=== PATIENT | male | born 1955 | race African-American/Black ===

== ENCOUNTER 2020-04-28 10:14 | Inpatient (IN) ==
[2020-04-28 12:11] LABS: Basophils # (auto) 0.02 K/uL (0-0.2); Basophils % (auto) 0.3 %; Eosinophils # (auto) 0.11 K/uL (0-0.5); Eosinophils % (auto) 1.5 %; Hemoglobin 13.1 g/dL (14.0-18.0); Immature Granulocytes # (auto) 0.01 K/uL (0.00-0.02); Immature Granulocytes % (auto) 0.1 %; Lymphocytes # (auto) 2.17 K/uL (1.2-3.4); Lymphocytes % (auto) 29.8 %; Mean Corpuscular Hemoglobin 32.4 pg (25-34); Mean Corpuscular Hgb Conc 35.4 g/dL (32-36); Mean Corpuscular Volume 91.6 fL (80-100); Mean Platelet Volume 11.2 fL (7.4-10.4); Monocytes # (auto) 0.72 K/uL (0.11-0.59); Monocytes % (auto) 9.9 %; Neutrophils # (auto) 4.24 K/uL (1.4-6.5); Neutrophils % (auto) 58.4 %; Platelet Count 166 K/uL (130-400); RDW Coefficient of Variation 13.1 % (11.5-14.5); RDW Standard Deviation 43.6 fL (36.4-46.3); Red Blood Count 4.04 M/uL (4.7-6.1); White Blood Count 7.27 K/uL (4.8-10.8)
[2020-04-28 12:22] LABS: INR 1.2 (0.9-1.1); Partial Thromboplastin Ratio 1.1; Partial Thromboplastin Time 29.6 Seconds (21.0-31.0); Prothrombin Time 12.4 Seconds (9.0-12.0)
--- NOTE | 2020-04-28 12:40 | CT Scan Report ---
CT head/brain wo con CLINICAL HISTORY: 65 years-old Male with ams. Acutely altered mental status TECHNIQUE: Multiple axial CT images of the head were obtained without contrast. A dose lowering tech nique was utilized adhering to the principles of ALARA. COMPARISON: None. FINDINGS: No acute intracranial hemorrhage, midline shift, intracranial mass, hydrocephalus, territorial ischem ia or abnormal extra-axial collection. Age-related involutional changes with mild ex vacuo ventriculo megaly. Patchy white matter hypodensities suggest chronic microvascular ischemic disease. The calvarium is intact. The paranasal sinuses, mastoid air cells, and middle ear cavities are clear . IMPRESSION: No acute intracranial abnormality. ACT 112: Negative or not required by law. The above report was generated using voice recognition software. It may contain grammatical, syntax o r spelling errors. Electronically signed by: Martin Tirado M.D. 04/28/2020 12:39 PM
--- NOTE | 2020-04-28 12:41 | XRay Report ---
XR chest 1V portable HISTORY: 65 years-old Male ams . Acutely altered mental status COMPARISON: CT abdomen and pelvis of same day TECHNIQUE: Portable AP view of the chest FINDINGS: Cardiac silhouette is mildly enlarged. There is no pneumothorax, pleural effusion, airspace consolida tion or overt pulmonary edema. Degenerative changes of the shoulders and spine. IMPRESSION: No acute process. ACT 112: Negative or not required by law. The above report was generated using voice recognition software. It may contain grammatical, syntax o r spelling errors. Electronically signed by: Martin Tirado M.D. 04/28/2020 12:40 PM
[2020-04-28 12:47] LABS: Alanine Aminotransferase 19 U/L (12-78); Albumin Globulin Ratio 0.4 (0.9-2); Albumin Level 2.3 gm/dl (3.4-5.0); Alkaline Phosphatase 105 U/L (45-117); Aspartate Aminotransferase 27 U/L (15-37); BUN Creatinine Ratio 12.3 (10-20); Bilirubin,Total 0.9 mg/dl (0.2-1); Blood Urea Nitrogen 58 mg/dl (7-18); Carbon Dioxide 25 mmol/L (21-32); Chloride 109 mmol/L (98-107); Est GFR (African American) 13.9; Globulin 5.9 gm/dl (2.5-4.0); Glucose 117 mg/dl (70-99); Magnesium 1.8 mg/dl (1.8-2.4); Potassium 4.3 mmol/L (3.5-5.1); Sodium 143 mmol/L (136-145); Total Protein 8.2 gm/dl (6.4-8.2); Troponin I < 0.015 ng/ml (0-0.045)
--- NOTE | 2020-04-28 12:49 | CT Scan Report ---
ABDOMEN AND PELVIS CT WITHOUT CONTRAST CT DOSE: 1682.81 mGy.cm HISTORY: Acute right-sided flank pain rt flank pain TECHNIQUE: Multiaxial CT images of the abdomen and pelvis were performed without contrast. A dose lo wering technique was utilized adhering to the principles of ALARA. COMPARISON STUDY: Chest radiograph of same day FINDINGS: Clear lung bases. No pneumatosis or pneumoperitoneum. Cardiomegaly. Mural fibrofatty changes of the i ntraventricular septum and lateral right ventricular wall. Coronary artery calcifications. Unremarkab le spleen. Limited evaluation of the solid abdominal organs without the use of IV contrast. Unremarka ble pancreas and adrenal glands. Cholelithiasis without CT evidence of acute cholecystitis. Cirrhotic morphology of the liver. Upper abdominal varices compatible with portal venous hypertension. Mild nonspecific bilateral perinephric stranding. No urolith or obstructive uropathy. Mild urinary bl adder wall thickening with partial distention. Calcified plaque the abdominal aorta. No aneurysm. Mil d nonspecific distal esophageal wall thickening. Varices are also noted adjacent to the distal esopha shivam and gastroesophageal junction. No bowel obstruction or bowel wall thickening. Colonic diverticulo sis. Mild fecal retention. Surgically absent appendix. There are multiple fat filled ventral abdomina l wall hernias, largest of which measures up to 2.5 cm. Diastases recti. Moderate to marked bilateral gynecomastia. Indeterminate 6 mm sclerotic focus of the anterior right sixth rib. No acute fracture. IMPRESSION: 1. No renal or ureteral calculi or obstructive uropathy. 2. Cirrhotic morphology of the liver with upper abdominal varices compatible with portal venous hyper tension. 3. No bowel obstruction or bowel wall thickening. 4. Multiple fat filled ventral abdominal wall hernias. 5. Moderate to marked bilateral gynecomastia. 6. Additional findings as above. ACT 112: Negative or not required by law. The above report was generated using voice recognition software. It may contain grammatical, syntax o r spelling errors. Electronically signed by: Martin Tirado M.D. 04/28/2020 12:48 PM
[2020-04-28] MEDS ORDERED: LACTULOSE SYRUP 30 GM/45 ML UDP PO STA ×2 (14:39→18:13)
[2020-04-28] MEDS ORDERED: SODIUM CHLORIDE 0.9% 1000ML 1,000 ML IV ONE (14:40)
--- NOTE | 2020-04-28 14:41 | Emergency Department Note ---
History of Present Illness General Chief complaint: Confusion Stated complaint: AMS,RENAL FAILURE,FATIGUE,CONFUSION Time Seen by Provider: 04/28/20 11:28 Source: patient Mode of arrival: EMS Limitations: no limitations History of Present Illness Provider complaint: Abnormal kidney function This is a 65-year-old male who presents to the ED with a chief complaint of abnormal labs and abnormal kidney function. The patient was sent here by the [facility] at the [facility]. The patient has had decreased p.o. intake for the past few days. He had an outpatient BUN of 57 and a creatinine of 4.74. His hemoglobin is 8.9. He does have history of chronic anemia. He also has history of type 2 diabetes and cirrhosis as well as renal disease. He states that he has had some nausea and vomiting for the past couple of days as well. He reports some occasional abdominal pain and back pain. 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 The present sentiment because they felt that he was altered. Home Medications Home Medications Medication Instructions Recorded Confirmed Type acetaminophen 500 mg PO QID PRN 04/28/20 04/28/20 History aspirin [Aspirin Low Dose] 81 mg PO DAILY 04/28/20 04/28/20 History bumetanide 2 mg PO DAILY 04/28/20 04/28/20 History epoetin amy-epbx 10,000 unit SUBCUT WK 04/28/20 04/28/20 History insulin NPH isoph U-100 human 38 unit SUBCUT BID 04/28/20 04/28/20 History [Novolin N NPH U-100 Insulin] insulin regular human [Novolin R 0 unit SUBCUT UD 04/28/20 04/28/20 History Flexpen] iron,carbonyl-vitamin C [Vitron-C] 1 tab PO DAILY 04/28/20 04/28/20 History nadolol 20 mg PO BID 04/28/20 04/28/20 History nortriptyline 25 mg PO HS 04/28/20 04/28/20 History omeprazole 20 mg PO DAILY 04/28/20 04/28/20 History spironolactone 50 mg PO DAILY 04/28/20 04/28/20 History Allergies Allergy/AdvReac Type Severity Reaction Status Date / Time No Known Allergies Allergy Unverified 04/28/20 11:07 Past Med/Surg History Social History Smoking Status: Never smoker Feels Safe at Home: Yes Review of Systems A total of 10 systems reviewed and were otherwise negative Physical Exam Vital Signs Vital Signs - 24 hr 04/28/20 10:37 04/28/20 11:05 04/28/20 11:06 Temperature 36.6 C Temperature Source Oral Pulse Rate 81 78 76 Pulse Rate from SpO2 Sensor 79 77 Pulse Rhythm Regular Pulse Strength Normal Respiratory Rate 20 17 15 Respiratory Effort / Characteristics Non-Labored Spontaneous Respiratory Depth Normal Respiratory Pattern Regular Blood Pressure 162/98 H 199/100 H Blood Pressure Mean 119 124 Blood Pressure Position Sitting Pulse Oximetry 99 98 98 Oxygen Delivery Method Room Air Sepsis Recent Fever Within 48 Hours No Sepsis New/Unexplained Change in Mental Status N/A Sepsis Action Taken by Nursing No Action Required 04/28/20 11:30 04/28/20 11:44 04/28/20 12:00 Temperature Temperature Source Pulse Rate 77 79 Pulse Rate from SpO2 Sensor Pulse Rhythm Pulse Strength Respiratory Rate 15 15 Respiratory Effort / Characteristics Respiratory Depth Respiratory Pattern Blood Pressure Blood Pressure Mean Blood Pressure Position Pulse Oximetry Oxygen Delivery Method Room Air Sepsis Recent Fever Within 48 Hours Sepsis New/Unexplained Change in Mental Status Sepsis Action Taken by Nursing 04/28/20 12:05 04/28/20 12:31 04/28/20 13:01 Temperature Temperature Source Pulse Rate 79 78 79 Pulse Rate from SpO2 Sensor 79 Pulse Rhythm Pulse Strength Respiratory Rate 16 17 19 Respiratory Effort / Characteristics Respiratory Depth Respiratory Pattern Blood Pressure 200/109 H 199/130 H Blood Pressure Mean 146 152 Blood Pressure Position Pulse Oximetry 98 Oxygen Delivery Method Sepsis Recent Fever Within 48 Hours Sepsis New/Unexplained Change in Mental Status Sepsis Action Taken by Nursing CONSTITUTIONAL/VITAL SIGNS: Reviewed / noted above. GENERAL: Non-toxic in appearance. INTEGUMENTARY: Warm, dry, and [place]. HEAD: Normocephalic. EYES: without scleral icterus or trauma. ENT/OROPHARYNX: clear and moist. LYMPHADENOPATHY/NECK: Is supple without lymphadenopathy or meningismus. RESPIRATORY: Lungs clear and equal. CARDIOVASCULAR: Regular rate and rhythm. GI/ABDOMEN: Soft and nontender. Umbilical hernia noted. Reducible. No organomegaly or pulsatile mass. No rebound or guarding. Normal bowel sounds. EXTREMITIES: Warm and well perfused. BACK: No CVA tenderness. NEUROLOGICAL: Intact without focal deficits. PSYCHIATRIC: normal affect. MUSCULOSKELETAL: Normally developed with good muscle tone. TRIAGE NURSING DOCUMENTATION REVIEWED. Medical Decision Making Differential Diagnosis Differential includes acute coronary syndrome, myocardial infarction, CVA, TIA, anemia, infection, pneumonia, UTI, pyelonephritis, poor nutrition, dehydration, electrolyte disturbance,hypoglycemia. Medical Records Attestation: I reviewed the patient's medical records. Home Medications Current Medication List: was personally reviewed by me Laboratory Data Attestation: I reviewed the patient's lab results. Result diagrams: 04/28/20 11:22 04/28/20 11:22 Lab Results 04/28/20 04/28/20 04/28/20 Range/Units 11:22 11:22 11:22 WBC 7.27 (4.8-10.8) K/uL RBC 4.04 L (4.7-6.1) M/uL Hgb 13.1 L (14.0-18.0) g/dL Hct 37.0 L (42-52) % MCV 91.6 (80-100) fL MCH 32.4 (25-34) pg MCHC 35.4 (32-36) g/dL RDW Std Deviation 43.6 (36.4-46.3) fL RDW Coeff of Kianna 13.1 (11.5-14.5) % Plt Count 166 (130-400) K/uL MPV 11.2 H (7.4-10.4) fL Immature Gran % (Auto) 0.1 % Neut % (Auto) 58.4 % Lymph % (Auto) 29.8 % Cooper % (Auto) 9.9 % Eos % (Auto) 1.5 % Baso % (Auto) 0.3 % Neut # (Auto) 4.24 (1.4-6.5) K/uL Lymph # (Auto) 2.17 (1.2-3.4) K/uL Cooper # (Auto) 0.72 H (0.11-0.59) K/uL Eos # (Auto) 0.11 (0-0.5) K/uL Baso # (Auto) 0.02 (0-0.2) K/uL Immature Gran # (Auto) 0.01 (0.00-0.02) K/uL PT 12.4 H (9.0-12.0) Seconds INR 1.2 H (0.9-1.1) APTT 29.6 (21.0-31.0) Seconds PTT Ratio 1.1 Sodium 143 (136-145) mmol/L Potassium 4.3 (3.5-5.1) mmol/L Chloride 109 H (98-107) mmol/L Carbon Dioxide 25 (21-32) mmol/L Anion Gap 9.0 (3-11) BUN 58 H (7-18) mg/dl Creatinine 4.71 H* (0.6-1.4) mg/dl Est Cr Clr Drug Dosing Not Reportable Est GFR ( Amer) 13.9 Est GFR (Non-Af Amer) 12.0 BUN/Creatinine Ratio 12.3 (10-20) Glucose 117 H (70-99) mg/dl Calcium 9.0 (8.5-10.1) mg/dl Magnesium 1.8 (1.8-2.4) mg/dl Total Bilirubin 0.9 (0.2-1) mg/dl AST 27 (15-37) U/L ALT 19 (12-78) U/L Alkaline Phosphatase 105 (45-117) U/L Ammonia (11-32) umol/L Troponin I < 0.015 (0-0.045) ng/ml Total Protein 8.2 (6.4-8.2) gm/dl Albumin 2.3 L (3.4-5.0) gm/dl Globulin 5.9 H (2.5-4.0) gm/dl Albumin/Globulin Ratio 0.4 L (0.9-2) TSH 1.240 (0.300-4.500) uIu/ml Ethyl Alcohol mg/dL (0-3) mg/dl 04/28/20 04/28/20 Range/Units 12:03 12:03 WBC (4.8-10.8) K/uL RBC (4.7-6.1) M/uL Hgb (14.0-18.0) g/dL Hct (42-52) % MCV (80-100) fL MCH (25-34) pg MCHC (32-36) g/dL RDW Std Deviation (36.4-46.3) fL RDW Coeff of Kianna (11.5-14.5) % Plt Count (130-400) K/uL MPV (7.4-10.4) fL Immature Gran % (Auto) % Neut % (Auto) % Lymph % (Auto) % Cooper % (Auto) % Eos % (Auto) % Baso % (Auto) % Neut # (Auto) (1.4-6.5) K/uL Lymph # (Auto) (1.2-3.4) K/uL Cooper # (Auto) (0.11-0.59) K/uL Eos # (Auto) (0-0.5) K/uL Baso # (Auto) (0-0.2) K/uL Immature Gran # (Auto) (0.00-0.02) K/uL PT (9.0-12.0) Seconds INR (0.9-1.1) APTT (21.0-31.0) Seconds PTT Ratio Sodium (136-145) mmol/L Potassium (3.5-5.1) mmol/L Chloride (98-107) mmol/L Carbon Dioxide (21-32) mmol/L Anion Gap (3-11) BUN (7-18) mg/dl Creatinine (0.6-1.4) mg/dl Est Cr Clr Drug Dosing Est GFR ( Amer) Est GFR (Non-Af Amer) BUN/Creatinine Ratio (10-20) Glucose (70-99) mg/dl Calcium (8.5-10.1) mg/dl Magnesium (1.8-2.4) mg/dl Total Bilirubin (0.2-1) mg/dl AST (15-37) U/L ALT (12-78) U/L Alkaline Phosphatase (45-117) U/L Ammonia 62.0 H (11-32) umol/L Troponin I (0-0.045) ng/ml Total Protein (6.4-8.2) gm/dl Albumin (3.4-5.0) gm/dl Globulin (2.5-4.0) gm/dl Albumin/Globulin Ratio (0.9-2) TSH (0.300-4.500) uIu/ml Ethyl Alcohol mg/dL < 3.0 (0-3) mg/dl Imaging Data Radiologist's Impression: CT scan of the abdomen pelvis: IMPRESSION: 1. No renal or ureteral calculi or obstructive uropathy. 2. Cirrhotic morphology of the liver with upper abdominal varices compatible with portal venous hypertension. 3. No bowel obstruction or bowel wall thickening. 4. Multiple fat filled ventral abdominal wall hernias. 5. Moderate to marked bilateral gynecomastia. 6. Additional findings as above. Chest x-ray:XR chest 1V portable HISTORY: 65 years-old Male ams . Acutely altered mental status COMPARISON: CT abdomen and pelvis of same day TECHNIQUE: Portable AP view of the chest FINDINGS: Cardiac silhouette is mildly enlarged. There is no pneumothorax, pleural effus ion, airspace consolidation or overt pulmonary edema. Degenerative changes of the shoulders and spine. IMPRESSION: No acute process. CT scan of the brain:CT head/brain wo con CLINICAL HISTORY: 65 years-old Male with ams. Acutely altered mental status TECHNIQUE: Multiple axial CT images of the head were obtained without contrast. A dose lowering technique was utilized adhering to the principles of ALARA. COMPARISON: None. FINDINGS: No acute intracranial hemorrhage, midline shift, intracranial mass, hydrocephalus, territorial ischemia or abnormal extra-axial collection. Age- related involutional changes with mild ex vacuo ventriculomegaly. Patchy white matter hypodensities suggest chronic microvascular ischemic disease. The calvarium is intact. The paranasal sinuses, mastoid air cells, and middle ear cavities are clear. IMPRESSION: No acute intracranial abnormality. ECG Data Attestation: I personally reviewed and interpreted this ECG as follows: Indication: + altered mental status Rate (beats per minute): 77 Rhythm: + normal sinus ECG Intervals/blocks: + Normal QT-c ECG ST segments: no ST elevation ECG Findings: no PVCs Comparison ECG Date: no prior available Blood Pressure Blood Pressure Findings: Normal blood pressure MDM Narrative The patient presents with a chief complaint of some change in mental status as well as abnormal labs, specifically his kidney function. The baseline creatinine is unclear for this patient. He does have a history of chronic renal insufficiency. His creatinine today is 4.7. His BUN is 58. His ammonia level is 62. His CBC and chemistry panel was otherwise unremarkable and his troponin was negative. EKG did not show ischemic changes. A CT scan of the head and a chest x-ray did not show acute abnormality and a CT scan of the chest revealed some cirrhosis which is known based on his history. Because the patient's abnormal kidney function is alteration of mental status, the patient will r equire further inpatient evaluation and care. He was treated with a normal saline bolus of 1 L IV. He was also given lactulose 30 g p.o. He will be seen by the hospitalist for further evaluation and care. Impression & Plan Altered mental status, Acute on chronic kidney failure, Acute hepatic encephalopathy Discharge Plan Visit Data Chief Complaint: Confusion Stated Complaint: AMS,RENAL FAILURE,FATIGUE,CONFUSION ED Provider: Gerber Cook Discharge Problem: Altered mental status, Acute on chronic kidney failure, Acute hepatic encephalopathy Patient Disposition: Being Evaluated by Hospitalist Forms Stand Alone Forms: [facility], Virtual Emergency Department, Important Visit Information Prescriptions Prescriptions: No Action bumetanide 2 mg Tablet 2 mg PO DAILY RF: 0 aspirin [Aspirin Low Dose] 81 mg Tablet,Delayed Release (Dr/Ec) 81 mg PO DAILY RF: 0 spironolactone 25 mg Tablet 50 mg PO DAILY RF: 0 nortriptyline 25 mg Capsule 25 mg PO HS RF: 0 nadolol 20 mg Tablet 20 mg PO BID RF: 0 Novolin N NPH U-100 Insulin 100 unit/mL Suspension 38 unit SUBCUT BID RF: 0 omeprazole 20 mg Capsule,Delayed Release(Dr/Ec) 20 mg PO DAILY RF: 0 acetaminophen 500 mg Capsule 500 mg PO QID PRN (Reason: Pain) RF: 0 Novolin R Flexpen 100 unit/mL (3 mL) Insulin Pen 0 unit SUBCUT UD RF: 0 Vitron-C 65 mg iron- 125 mg Tablet,Delayed Release (Dr/Ec) 1 tab PO DAILY RF: 0 epoetin amy-epbx 10,000 unit/mL Solution 10,000 unit subcut WK RF: 0 Referrals Referrals: Irais POE [Primary Care Provider] -
[2020-04-28 15:42] LABS: Appearance Urine Clear (Clear); Bacteria Urine Automated Negative (Negative); Bilirubin Urine Negative (Negative); Blood Urine 2+ (Negative); Color Urine Dark Yellow; Epithelial Cell Urine Auto 20-30 /lpf (0-5); Glucose Urine UA 1+ (Negative); Ketones Urine Negative (Negative); Leukocyte Esterase Urine Negative (Negative); Nitrite Urine Negative (Negative); Protein Urine 3+ (Negative); Specific Gravity Urine 1.024 (1.000-1.030); Urobilinogen Urine Negative (Negative); pH Urine 5.5 (4.5-7.5)
[2020-04-28 15:58] LABS: Amphetamines+Metham, Urine Neg (Neg); Barbiturates, Urine Neg (Neg); Benzodiazepine, Urine Neg (Neg); Cocaine, Urine Neg (Neg); MDMA (Ecstacy), Urine Neg (Neg); Methadone, Urine Neg (Neg); Opiate, Urine Neg (Neg); Phencyclidine, Urine Neg (Neg)
--- NOTE | 2020-04-28 16:27 | History & Physical Report ---
Date of Service April 28, 2020 Assessment & Plan (1) Acute hepatic encephalopathy: Ammonia 64. Mild fecal retention on CT Lactulose 30ml QID Aim 3-4 BM daily (2) Altered mental status: Most likely secondary to above Alternative diagnoses - fluctuating glucose levels, uremic encephalopathy, infection (follow up blood cultures) (3) Acute on chronic kidney failure: Slow progressively worsening Cr over the last month. No obstructive cause on CT. Unclear what caused his initial rise from February Cr 2.92 to March Cr 3.45 ?hypertension/diabetes/hepatorenal. No significant change in the last 3 days. No electrolyte abnormalities. Add urine protein/Cr ratio, FENa to urine. Patient dry on exam, suspect prerenal REDD due to overdiuresis from Bumex 2mg started on for hypervolemia. Hold further diuretics at present pending renal consult tomorrow. (4) Anemia, unspecified: Suspect anemia of chronic disease, anemia of CKD. Continue iron supplementation (Vitron-C). Retacrit 10,000 units given on -does not appear to need this at present. (5) Hypertensive urgency: No significant change in creatinine for 3 days therefore do not suspect hypertensive emergency. Continue nadolol 20 mg p.o. twice daily. Hold diuretics as above. Hydralazine 10 mg IV q4H PRN for sBP > 180. (6) Liver cirrhosis: Secondary to previously treated hepatitis C. Esophageal varices without bleeding as below. (7) Esophageal varices without bleeding: Continue nadolol 20 mg p.o. twice daily (8) Type 2 diabetes mellitus: HbA1c unknown, will get with AM labs. Patient on insulin NPH 38 units subcu twice daily and Novolin R as correction factor. No carb coverage noted on medication sheet. Consult pharmacy for glycemic control with basal bolus insulin. (9) Microscopic hematuria: Consider repeating as outpatient (10) Umbilical hernia without obstruction or gangrene: Reducible, nonpainful, no overlying concerning skin changes. (11) GERD (gastroesophageal reflux disease): Switch omeprazole to pantoprazole as per hospital formulary (12) Low back pain: Acetaminophen with max dose 1600 mg. No NSAIDs. (13) Hyperlipidemia: Problem listed however no statin on medication list. (14) DVT prophylaxis: SCDs Will defer chemical prophylaxis pending BP stability give esophageal varices Admission and Anticipated Discharge Date Admission Date: 04/28/2020 History of Present Illness Chief Complaint: Altered mental state Primary Care Provider: DEEPIKA Irais Moreira is a 65-year-old male inmate of [facility], with known liver cirrhosis and chronic kidney disease who presents to the ER with altered mental state. [facility] over from [facility] that the patient has had altered mental status with increasing lethargy, fatigue and confusion over the last 24 hours. The patient confirms he is feeling generally more fatigued and lethargic than usual with slurring of his speech but feels this is been getting progressively worse for weeks. Denies lateralizing weakness, change in hearing, change in vision, change in sensation. No chest pain, shortness of breath, fever, chills, abdominal pain, nausea, vomiting, dysuria. Last bowel movement per patient was 2 days ago. No lactulose noted on medication list. He recently transferred to [facility] in the last month. Confirmation from present that he took his 7 AM medications. BSG @ 7:20 with 38 units of Novolin N given. BP this morning 168/100. Discussed case with KENISHA Beatty @ [facility] -reports he has been more sluggish and slow to respond over the last few days. Significantly worse this morning with lethargy and tiredness. Previously on Lasix 40 mg p.o. daily until April 12. He was then trialed to take his own Lasix 80mg PO daily from April 12- but reportedly was non-compliant with this and caused hypervolemia. He was therefore switched to Bumex 2mg starting on . Also notes his glucose levels fluctuate considerably from double digits to 300s. Date 03/13 04/13 04/25 BUN 40 34 57 Cr 2.92 3.45 4.74 Date 04/09 04/19 04/25 10am 04/25 6pm 04/26 04/28 BP 150/86 180/100 140/82 190/91 170/88 168/100 Allergies Allergy/AdvReac Type Severity Reaction Status Date / Time No Known Allergies Allergy Unverified 04/28/20 11:07 Home Medications Home Medications Medication Instructions Recorded Confirmed Type acetaminophen 500 mg PO QID PRN 04/28/20 04/28/20 History aspirin [Aspirin Low Dose] 81 mg PO DAILY 04/28/20 04/28/20 History bumetanide 2 mg PO DAILY 04/28/20 04/28/20 History epoetin amy-epbx 10,000 unit SUBCUT WK 04/28/20 04/28/20 History insulin NPH isoph U-100 human 38 unit SUBCUT BID 04/28/20 04/28/20 History [Novolin N NPH U-100 Insulin] insulin regular human [Novolin R 0 unit SUBCUT UD 04/28/20 04/28/20 History Flexpen] iron,carbonyl-vitamin C [Vitron-C] 1 tab PO DAILY 04/28/20 04/28/20 History nadolol 20 mg PO BID 04/28/20 04/28/20 History nortriptyline 25 mg PO HS 04/28/20 04/28/20 History omeprazole 20 mg PO DAILY 04/28/20 04/28/20 History spironolactone 50 mg PO DAILY 04/28/20 04/28/20 History Past Med/Surg History Medical History Allergic rhinitis Anemia, unspecified Chronic kidney disease, unspecified Esophageal varices without bleeding Flatulence GERD (gastroesophageal reflux disease) HCV (hepatitis C virus) Treated Hyperlipidemia Hypertension Liver cirrhosis Low back pain Onychomycosis Pruritus, unspecified Type 2 diabetes mellitus Umbilical hernia without obstruction or gangrene Social History Smoking Status: Former smoker Hx Alcohol Use: No Hx Substance Use: No Communication Ability: Effective Proof Technician Required: No Beliefs That Will Affect Care: None Current Living Situation: Other Other Information That Helps Us Care for You: No Feels Safe at Home: Yes Safety Concerns: Feels Safe At This Time Review of Systems Review of Systems: All systems reviewed & are unremarkable except as noted in HPI & below Constitutional: + fatigue and + weakness; no fever and no chills Gastrointestinal: + nausea and + constipation; no vomiting, no blood in stools and no melena Physical Exam Constitutional: well developed; + not well nourished and no acute distress Eyes: PERRL, conjunctivae normal, anicteric sclerae no nystagmus ENMT: external ear and nose normal, oropharynx normal Neck: trachea midline, no thyromegaly Respiratory: normal respiratory effort, lungs clear to auscultation Cardiovascular: Rate/Rhythm: regular rate and regular rhythm Heart Sounds: no murmur Extremities: + pedal edema Gastrointestinal (Abdomen): Inspection/Auscultation: + abdomen distended and + hyperactive bowel sounds Percussion/Palpation: + abdomen tender (Very mild of the left side, no rebound) and abdomen soft; no guarding and abdomen not rigid Musculoskeletal: no cyanosis or clubbing, extremities motor strength 5/5 Skin: no rashes, warm and dry (No areas of cellulitis) Neurologic: moves all extremities and awake; not confused Psychiatric: Orientation: alert, oriented to person, oriented to place and oriented to time Genitourinary: no CVA tenderness Lymphatic: no cervical or axillary lymphadenopathy Results & Data Results & Data ([facility]) Vital Signs (Past 12 Hours) Vital Signs Temp Pulse Resp BP Pulse Ox 04/28/20 13:01 79 19 04/28/20 12:31 78 17 199/130 H 04/28/20 12:05 79 16 200/109 H 98 04/28/20 12:00 79 15 04/28/20 11:30 77 15 04/28/20 11:06 76 15 98 04/28/20 11:05 78 17 199/100 H 98 04/28/20 10:37 36.6 C 81 20 162/98 H 99 Diagnostic Findings XR chest 1V portable IMPRESSION: No acute process. CT head/brain wo con IMPRESSION: No acute intracranial abnormality. ABDOMEN AND PELVIS CT WITHOUT CONTRAST IMPRESSION: 1. No renal or ureteral calculi or obstructive uropathy. 2. Cirrhotic morphology of the liver with upper abdominal varices compatible with portal venous hypertension. 3. No bowel obstruction or bowel wall thickening. 4. Multiple fat filled ventral abdominal wall hernias. 5. Moderate to marked bilateral gynecomastia. 6. Additional findings as above. ECG Indication: altered mental status Rate (beats per minute): 77 Rhythm: sinus with SA Findings: + T-wave inversion (Inferior, lateral) Comparison ECG Date: no prior available Code Status & VTE Plan Code Status Full VTE Prophylaxis Plan VTE Prophylaxis will be ordered: Yes PG Care Time/CCT Total # of Minutes Spent Total Time Spent: 95 Total Time Spent with Patient: Total time spent is greater than 50% in coordination of care (as documented) at patient's floor/unit and/or counseling patient: Coding Level of Care Code 24572 OBS Care - Level 3 Diagnoses Acute hepatic encephalopathy K72.00 Altered mental status R40.0 Altered mental status type: somnolence Acute on chronic kidney failure N17.9; N18.9 Acute renal failure type: unspecified Chronic kidney disease stage: unspecified stage Anemia, unspecified D64.9 Hypertensive urgency I16.0 Liver cirrhosis K74.60 Hepatic cirrhosis type: unspecified hepatic cirrhosis Ascites presence: without ascites Esophageal varices without bleeding I85.00 Type 2 diabetes mellitus E11.9 Microscopic hematuria R31.29 Umbilical hernia without obstruction or gangrene K42.9 GERD (gastroesophageal reflux disease) K21.9 Low back pain M54.5 Hyperlipidemia E78.5 DVT prophylaxis Z29.9 (1) Liver cirrhosis Hepatic cirrhosis type: unspecified hepatic cirrhosis Ascites presence: without ascites Qualified Code(s): K74.60 - Unspecified cirrhosis of liver (2) Altered mental status Altered mental status type: somnolence Qualified Code(s): R40.0 - Somnolence (3) Acute on chronic kidney failure Acute renal failure type: unspecified Chronic kidney disease stage: unspecified stage Qualified Code(s): N17.9 - Acute kidney failure, unspecified; N18.9 - Chronic kidney disease, unspecified
[2020-04-28] MEDS ORDERED: ACETAMINOPHEN 325 MG TAB PO PRN (18:08)
[2020-04-28] MEDS ORDERED: ALUMINUM/MAGNESIUM SUSP 30 ML UDC PO PRN (18:08)
[2020-04-28] MEDS ORDERED: ONDANSETRON INJ 2 MG/ML 2 ML VIAL IV PRN (18:08)
[2020-04-28] MEDS ORDERED: HydrALAZINE HCL 20 MG/ML VIAL IV STA (18:09)
[2020-04-28] MEDS ORDERED: PHARMACY GLYCEMIC MGMT CONSULT PRN (18:18)
[2020-04-28] MEDS ORDERED: GLUCAGON FOR INJ 1 MG VIAL IM PRN (18:45)
[2020-04-28] MEDS ORDERED: GLUCOSE 10 TABS/TUBE PO PRN (18:45)
[2020-04-28] MEDS ORDERED: DEXTROSE 50% 50 ML SYRINGE IV PRN (18:45)
[2020-04-28] MEDS ORDERED: CARBOHYDRATES FOR HYPOGLYCEMIA PO PRN (18:45)
[2020-04-28] MEDS ORDERED: GLUCOSE 40% GEL 15 GM TUBE PO PRN (18:45)
[2020-04-28] MEDS ORDERED: NovoLIN-N (NPH) PER UNIT CHARGE SQ ONE (19:00)
[2020-04-28] MEDS: INSULIN ASPART 100 UNITS/ML 3 ML PEN SC SCH ×2 (19:12→20:17)
--- NOTE | 2020-04-28 19:12 | Pharmacy Report ---
Glycemic Control Consultation - Date of Service April 28, 2020 - Scope Scope: Glycemic Pharmacist consulted for glycemic control and to write orders per [facility] inpatient glycemic control protocol. - Objective Weight: 93.6 kg Accuchecks BSG (last 24hrs): 04/28/20 04/28/20 11:22 18:41 Glucose 117 H POC Glucose 143 H Laboratory Data (last 24hrs): 04/28/20 11:22 Potassium 4.3 Carbon Dioxide 25 Anion Gap 9.0 Creatinine 4.71 H* Est Cr Clr Drug Dosing Not Reportable - Recent Pertinent Medications Outpatient Anti-diabetic Regimen: * Insulin NPH 38 units SQ BIDM + Regular Insulin sliding scale * A1c = pending for tomorrow morning Risk Factors for Insulin Resistance: * Diet: * T2DM - Assessment & Plan Assessment & Plan: ASSESSMENT: * 65 yo M admitted from [facility] for altered mental status and acute kidney injury. Pharmacy is consulted for inpatient glycemic management. A hemoglobin A1c has been ordered for tomorrow morning. * Admission BSG was 117 mg/dL. Increased slightly to 143 mg/dL prior to patient eating dinner at ~ 1830. Last known dose of insulin was last evening. * Given patient will be eating dinner and did not receive any NPH this morning, will give him a one time dose of 20 units NPH with dinner tonight. This is almost a 50% reduction in home dose. Will start Novolog correctional/prandial insulin based on weight and stress of 2. PLAN FOR INPATIENT GLYCEMIC CONTROL: * Basal insulin * NPH 20 units SQ x 1 * Bolus insulin * NovoLog per scale ACHS or Q6hrs while NPO * Goal Range: Low 110 mg/dL - High 140 mg/dL * Correction Factor: 25 mg/dL/unit * Nutritional / Prandial insulin per carb ratio of 1 unit per 8 grams CHO consumed * Please note that the plan above was derived based on current level of insulin resistance and hospital stress. These recommendations are appropriate for inpatient admission only. Plan of care upon discharge will need to be reassessed to avoid potential outpatient hypo/hyperglycemia. Thank you.
[2020-04-28] MEDS: LACTULOSE SYRUP 30 GM/45 ML UDP PO SCH (20:14)
[2020-04-28] MEDS: HydrALAZINE HCL 20 MG/ML VIAL IV PRN (20:15)
[2020-04-28] MEDS: NORTRIPTYLINE HCL 25 MG CAP PO SCH (20:15)
[2020-04-28] MEDS ORDERED: nadoloL 40 MG TAB PO SCH (21:00)
[2020-04-28] MEDS ORDERED: nadoloL 40 MG TAB PO STA (22:04)
[2020-04-28 22:34] LABS: Protein Creatinine Ratio Urine 3.4 (0-0.2); Total Protein Urine Random 817.6 mg/dl (0-11.9)
[2020-04-28] MEDS: NITROGLYCERIN 2% OINTMENT 30GM TUBE EXT SCH (22:35)
[2020-04-29] MEDS: HydrALAZINE HCL 20 MG/ML VIAL IV PRN (04:15)
[2020-04-29] MEDS: NITROGLYCERIN 2% OINTMENT 30GM TUBE EXT SCH ×4 (04:16→22:55)
--- NOTE | 2020-04-29 06:48 | Electrocardiogram Report ---
Test Reason : Blood Pressure : / mmHG Vent. Rate : 077 BPM Atrial Rate : 077 BPM P-R Int : 130 ms QRS Dur : 084 ms QT Int : 382 ms P-R-T Axes : 039 -01 254 degrees QTc Int : 432 ms Normal sinus rhythm with sinus arrhythmia Possible Left atrial enlargement Left ventricular hypertrophy Abnormal ECG No previous ECGs available Confirmed by Bassam Correa ([id number]) on 04/29/2020 6:48:35 AM Referred By: Irais POE Confirmed By:Bassam Correa
[2020-04-29] MEDS ORDERED: INSULIN HUMAN NPH SC SCH (08:00)
[2020-04-29] MEDS: INSULIN ASPART 100 UNITS/ML 3 ML PEN SC SCH ×4 (08:13→20:56)
[2020-04-29] MEDS: ASPIRIN 81 MG ECTAB PO SCH (08:17)
[2020-04-29] MEDS: LACTULOSE SYRUP 30 GM/45 ML UDP PO SCH ×4 (08:17→20:45)
[2020-04-29] MEDS: PANTOprazole 40 MG TAB PO SCH (08:17)
[2020-04-29] MEDS: FERROUS FUMARATE/ASCORBIC ACID 65 MG CAPCR PO SCH (08:17)
[2020-04-29] MEDS: nadoloL 40 MG TAB PO SCH ×2 (08:17→22:54)
[2020-04-29 08:37] LABS: Basophils # (auto) 0.02 K/uL (0-0.2); Basophils % (auto) 0.3 %; Eosinophils # (auto) 0.12 K/uL (0-0.5); Eosinophils % (auto) 1.9 %; Hemoglobin 12.3 g/dL (14.0-18.0); Immature Granulocytes # (auto) 0.01 K/uL (0.00-0.02); Immature Granulocytes % (auto) 0.2 %; Lymphocytes # (auto) 1.86 K/uL (1.2-3.4); Lymphocytes % (auto) 29.2 %; Mean Corpuscular Hemoglobin 32.5 pg (25-34); Mean Corpuscular Hgb Conc 35.1 g/dL (32-36); Mean Corpuscular Volume 92.6 fL (80-100); Mean Platelet Volume 10.9 fL (7.4-10.4); Monocytes # (auto) 1.05 K/uL (0.11-0.59); Monocytes % (auto) 16.5 %; Neutrophils # (auto) 3.32 K/uL (1.4-6.5); Neutrophils % (auto) 51.9 %; Platelet Count 153 K/uL (130-400); RDW Coefficient of Variation 13.5 % (11.5-14.5); RDW Standard Deviation 45.4 fL (36.4-46.3); Red Blood Count 3.78 M/uL (4.7-6.1); White Blood Count 6.38 K/uL (4.8-10.8)
--- NOTE | 2020-04-29 08:43 | Ultrasound Report ---
DOPPLER ULTRASOUND OF THE RENAL ARTERIES CLINICAL HISTORY: Hypertension. COMPARISON STUDY: No priors. TECHNIQUE: Doppler sonography of the renal arteries was performed to assess renal artery stenosis. Im ages are reviewed in the transverse and longitudinal planes. FINDINGS: The kidneys appear normal in size and echotexture. There is no hydronephrosis. On the right, intrarenal arterial resistive indices range from 0.59 to 0.73. Intrarenal arterial wave forms are normal with brisk upstrokes. The right renal arterial waveform is normal, and velocities wi thin the right renal artery measure up to 69 cm/sec. The right renal vein is patent. On the left, intrarenal arterial resistive indices range from 0.62 to 0.71. Intrarenal arterial wave forms are normal with brisk upstrokes. The left renal arterial waveform is normal, and velocities wit hin the left renal artery measure up to 60 cm/sec. The left renal vein is patent. The abdominal aorta is patent. Velocities within the abdominal aorta measure up to 88 cm/s. IMPRESSION: There is no sonographic evidence of renal artery stenosis. ACT 112: Negative or not required by law. Electronically signed by: Juan Antonio Gibbs M.D. 04/29/2020 8:42 AM
[2020-04-29 08:46] LABS: INR 1.2 (0.9-1.1); Prothrombin Time 12.7 Seconds (9.0-12.0)
[2020-04-29 09:02] LABS: Estimated Average Glucose 100 mg/dl; Hemoglobin A1C 5.1 % (4.5-5.6)
[2020-04-29 09:16] LABS: Albumin Globulin Ratio 0.4 (0.9-2); Albumin Level 2.2 gm/dl (3.4-5.0); BUN Creatinine Ratio 13.3 (10-20); Calcium 9.3 mg/dl (8.5-10.1); Creatinine Clr Calc Pharmacy 17.5 ml/min; Est GFR (African American) 14.3; Est GFR (Non-African American) 12.3; Globulin 5.1 gm/dl (2.5-4.0); Potassium 4.2 mmol/L (3.5-5.1); Total Protein 7.3 gm/dl (6.4-8.2)
--- NOTE | 2020-04-29 09:59 | Pharmacy Report ---
Pharmacy Glycemic Short Note 2 - Date of Service April 29, 2020 - Glycemic Short BSG Results (Last 24 hours): 04/28/20 04/28/20 04/28/20 11:22 18:41 20:05 Glucose 117 H POC Glucose 143 H 170 H 04/29/20 04/29/20 06:57 08:25 Glucose 192 H POC Glucose 199 H ASSESSMENT: 04/29: * Patient received total of 25 units of insulin yesterday, of which 20 were NPH * Fasting BSG elevated at 199 mg/dL - will titrate up basal insulin. Will be conservative as PO intake still limited/REDD on admission * Plan to give another 20 units of NPH this AM and then add a scale for dinner time * Plan to tighten CF/CR PLAN FOR INPATIENT GLYCEMIC CONTROL: * Basal insulin * NPH 20 units SQ this AM * NPH 25-35 units with dinner based upon BSG scale * Bolus insulin - tighten * NovoLog per scale ACHS or Q6hrs while NPO * Goal Range: Low 110 mg/dL - High 140 mg/dL * Correction Factor: 15 mg/dL/unit * Nutritional / Prandial insulin per carb ratio of 1 unit per 6 grams CHO consumed Please note that the plan above was derived based on current level of insulin resistance and hospital stress. These recommendations are appropriate for inpatient admission only. Plan of care upon discharge will need to be reassessed to avoid potential outpatient hypo/hyperglycemia. Thank you.
--- NOTE | 2020-04-29 11:55 | Hospitalist Progress Note ---
Date of Service April 29, 2020 Assessment & Plan (1) Acute hepatic encephalopathy: Presented with lethargy and altered mental status. Ammonia 65 on admission. Mild fecal retention on CT Moving bowels now. Mental status is now seemingly improved. Repeat ammonia level is actually higher today but is not reliable given that his mental status is improved -Continue lactulose 30ml QID -Aim 3-4 BM daily (2) Altered mental status: Acute encephalopathy most likely secondary to above but also could be from acute kidney injury No evidence of infection with negative chest x-ray, afebrile, no leukocytosis, blood cultures no growth, urinalysis negative for infection, urine drug screen and alcohol levels are negative Now improved (3) Acute on chronic kidney failure: Slow progressively worsening Cr over the last several months No obstructive cause on CT, renal ultrasound negative. Unclear what caused his initial rise from February Cr 2.92 to March Cr 3.45 and now up to 4.6-appreciate nephrology consultation -FENa is low and spot urine protein creatinine ratio is quite elevated although unreliable in the setting of acute kidney injury, could be suggestive of nephrotic range proteinuria Patient dry on exam, suspect prerenal REDD due to overdiuresis from Bumex 2mg started on for hypervolemia. -Continue holding diuretics -Collecting 24-hour urine, UPEP, SPEP, complement levels, phospholipase A2 as per urology recommendation -Work on blood pressure control -Follow BMP, with mild metabolic acidosis. Volume status is acceptable -No indication for urgent dialysis (4) Anemia, unspecified: Suspect anemia of chronic disease, anemia of CKD. Continue iron supplementation (Vitron-C). Retacrit 10,000 units given on -does not appear to need this at present. -Follow CBC (5) Hypertensive urgency: No significant change in creatinine for 3 days therefore do not suspect hypertensive emergency. Continue increased dose of nadolol 40 mg p.o. twice daily. Hold diuretics as above. Hydralazine 10 mg IV q4H PRN for sBP > 180. -Add amlodipine 5 mg daily and titrate up as needed (6) Liver cirrhosis: Secondary to previously treated hepatitis C. Esophageal varices without bleeding as below. (7) Esophageal varices without bleeding: Seen on imaging here, unclear if he has had previous EGD Continue nadolol No bleeding (8) Type 2 diabetes mellitus: HbA1c here is low at 5.1%-very well controlled, may be somewhat falsely low due to anemia Patient on insulin NPH 38 units subcu twice daily and Novolin R as correction factor at the [facility]. No carb coverage noted on medication sheet. Consult pharmacy for glycemic control with basal bolus insulin. -Unclear if nortriptyline is for diabetic neuropathy? Patient is unclear about his medical history (9) Microscopic hematuria: Consider repeating as outpatient CT abdomen/pelvis without masses or abnormalities (10) Umbilical hernia without obstruction or gangrene: Reducible, nonpainful, no overlying concerning skin changes. (11) GERD (gastroesophageal reflux disease): Continue PPI (12) Low back pain: Acetaminophen with max dose 1600 mg. No NSAIDs. (13) Hyperlipidemia: Problem listed however no statin on medication list. (14) HCV (hepatitis C virus): Treated with Epclusa from February to April 2019 Presumably cured (15) Proteinuria: As above Collecting 24-hour urine (16) DVT prophylaxis: SCDs, okay to add SQ heparin as no active signs of bleeding Disposition-remain on PCU Admission and Anticipated Discharge Date Admission Date: April 28, 2020 Subjective Patient reports poor appetite, not really feeling much better. However he does seem more alert and conversive as compared to reports of how he was upon arrival and at the [facility] when he was lethargic. Patient is disgruntled that he is having loose bowel movements with lactulose. He offers no other complaints and is a man of few words. He is eating his lunch when I saw him. Telemetry with normal sinus rhythm with rates in the 80s to 90s I discussed the case with nephrology. Review of Systems Review of Systems: All systems reviewed & are unremarkable except as noted in HPI & below Physical Exam Constitutional: WD/WN, vitals as above + obese Eyes: sclerae not anicteric Neck: trachea midline, no thyromegaly Respiratory: normal respiratory effort, lungs clear to auscultation Cardiovascular: RRR, no murmur, no edema Chest (Breasts): Chest: normal inspection of chest Gastrointestinal (Abdomen): Inspection/Auscultation: normal bowel sounds; abdomen not distended Percussion/Palpation: abdomen soft and + hernia (Umbilical hernia, reducible); abdomen nontender Musculoskeletal: Extremities: extremities normal to inspection; no cyanosis and no clubbing Skin: no rashes, warm and dry Neurologic: moves all extremities and awake; no focal motor deficits Psychiatric: Orientation: alert, oriented x 3 and cooperative Eye Contact: + fair eye contact Affect: + flat affect Lymphatic: no lymphedema Results & Data Results & Data ([facility]) Vital Signs (Past 12 Hours) Vital Signs Temp Pulse Pulse Resp BP Pulse Ox 04/29/20 11:33 36.6 C 82 18 156/88 H 98 04/29/20 07:30 36.4 C L 86 20 170/90 H 98 04/29/20 07:00 86 04/29/20 03:52 36.4 C L 84 18 187/89 H 99 Laboratory Results 04/29/20 04/29/20 04/29/20 Range/Units 16:13 14:51 14:51 WBC (4.8-10.8) K/uL RBC (4.7-6.1) M/uL Hgb (14.0-18.0) g/dL Hct (42-52) % MCV (80-100) fL MCH (25-34) pg MCHC (32-36) g/dL RDW Std Deviation (36.4-46.3) fL RDW Coeff of Kianna (11.5-14.5) % Plt Count (130-400) K/uL MPV (7.4-10.4) fL Immature Gran % (Auto) % Neut % (Auto) % Lymph % (Auto) % [place] % (Auto) % Eos % (Auto) % Baso % (Auto) % Neut # (Auto) (1.4-6.5) K/uL Lymph # (Auto) (1.2-3.4) K/uL [place] # (Auto) (0.11-0.59) K/uL Eos # (Auto) (0-0.5) K/uL Baso # (Auto) (0-0.2) K/uL Immature Gran # (Auto) (0.00-0.02) K/uL PT (9.0-12.0) Seconds INR (0.9-1.1) Sodium (136-145) mmol/L Potassium (3.5-5.1) mmol/L Chloride (98-107) mmol/L Carbon Dioxide (21-32) mmol/L Anion Gap (3-11) BUN (7-18) mg/dl Creatinine (0.6-1.4) mg/dl Est Cr Clr Drug Dosing ml/min Est GFR ( Amer) Est GFR (Non-Af Amer) BUN/Creatinine Ratio (10-20) Glucose (70-99) mg/dl POC Glucose 212 H (70-99) mg/dl Estimat Average Glucose mg/dl Hemoglobin A1c (4.5-5.6) % Calcium (8.5-10.1) mg/dl Total Bilirubin (0.2-1) mg/dl AST (15-37) U/L ALT (12-78) U/L Alkaline Phosphatase (45-117) U/L Ammonia (11-32) umol/L Total Protein (6.4-8.2) gm/dl Albumin (3.4-5.0) gm/dl Globulin (2.5-4.0) gm/dl Albumin/Globulin Ratio (0.9-2) Ur Random Creatinine mg/dl U Random Total Protein (0-11.9) mg/dl Ur Random Sodium mmol/L Protein/Creatinin Ratio (0-0.2) Complement C3 Pending Complement C4 Pending Tot Complement (CH50) Pending Phospholip A2 Rec IFA Pending Phospholip A2 Rec ELIDIA Pending 04/29/20 04/29/20 04/29/20 Range/Units 14:51 11:14 08:25 WBC (4.8-10.8) K/uL RBC (4.7-6.1) M/uL Hgb (14.0-18.0) g/dL Hct (42-52) % MCV (80-100) fL MCH (25-34) pg MCHC (32-36) g/dL RDW Std Deviation (36.4-46.3) fL RDW Coeff of Kianna (11.5-14.5) % Plt Count (130-400) K/uL MPV (7.4-10.4) fL Immature Gran % (Auto) % Neut % (Auto) % Lymph % (Auto) % [place] % (Auto) % Eos % (Auto) % Baso % (Auto) % Neut # (Auto) (1.4-6.5) K/uL Lymph # (Auto) (1.2-3.4) K/uL [place] # (Auto) (0.11-0.59) K/uL Eos # (Auto) (0-0.5) K/uL Baso # (Auto) (0-0.2) K/uL Immature Gran # (Auto) (0.00-0.02) K/uL PT (9.0-12.0) Seconds INR (0.9-1.1) Sodium 138 (136-145) mmol/L Potassium 3.9 (3.5-5.1) mmol/L Chloride 108 H (98-107) mmol/L Carbon Dioxide 19 L (21-32) mmol/L Anion Gap 11.0 (3-11) BUN 64 H (7-18) mg/dl Creatinine 4.54 H* (0.6-1.4) mg/dl Est Cr Clr Drug Dosing 17.8 ml/min Est GFR ( Amer) 14.5 Est GFR (Non-Af Amer) 12.5 BUN/Creatinine Ratio 14.0 (10-20) Glucose 217 H (70-99) mg/dl POC Glucose 260 H (70-99) mg/dl Estimat Average Glucose 100 mg/dl Hemoglobin A1c 5.1 (4.5-5.6) % Calcium 8.6 (8.5-10.1) mg/dl Total Bilirubin (0.2-1) mg/dl AST (15-37) U/L ALT (12-78) U/L Alkaline Phosphatase (45-117) U/L Ammonia (11-32) umol/L Total Protein (6.4-8.2) gm/dl Albumin (3.4-5.0) gm/dl Globulin (2.5-4.0) gm/dl Albumin/Globulin Ratio (0.9-2) Ur Random Creatinine mg/dl U Random Total Protein (0-11.9) mg/dl Ur Random Sodium mmol/L Protein/Creatinin Ratio (0-0.2) Complement C3 Complement C4 Tot Complement (CH50) Phospholip A2 Rec IFA Phospholip A2 Rec ELIDIA 04/29/20 04/29/20 04/29/20 Range/Units 08:25 08:25 08:25 WBC (4.8-10.8) K/uL RBC (4.7-6.1) M/uL Hgb (14.0-18.0) g/dL Hct (42-52) % MCV (80-100) fL MCH (25-34) pg MCHC (32-36) g/dL RDW Std Deviation (36.4-46.3) fL RDW Coeff of Kianna (11.5-14.5) % Plt Count (130-400) K/uL MPV (7.4-10.4) fL Immature Gran % (Auto) % Neut % (Auto) % Lymph % (Auto) % [place] % (Auto) % Eos % (Auto) % Baso % (Auto) % Neut # (Auto) (1.4-6.5) K/uL Lymph # (Auto) (1.2-3.4) K/uL [place] # (Auto) (0.11-0.59) K/uL Eos # (Auto) (0-0.5) K/uL Baso # (Auto) (0-0.2) K/uL Immature Gran # (Auto) (0.00-0.02) K/uL PT 12.7 H (9.0-12.0) Seconds INR 1.2 H (0.9-1.1) Sodium 138 (136-145) mmol/L Potassium 4.2 (3.5-5.1) mmol/L Chloride 108 H (98-107) mmol/L Carbon Dioxide 20 L (21-32) mmol/L Anion Gap 10.0 (3-11) BUN 61 H (7-18) mg/dl Creatinine 4.61 H* (0.6-1.4) mg/dl Est Cr Clr Drug Dosing 17.5 ml/min Est GFR ( Amer) 14.3 Est GFR (Non-Af Amer) 12.3 BUN/Creatinine Ratio 13.3 (10-20) Glucose 192 H (70-99) mg/dl POC Glucose (70-99) mg/dl Estimat Average Glucose mg/dl Hemoglobin A1c (4.5-5.6) % Calcium 9.3 (8.5-10.1) mg/dl Total Bilirubin 1.0 (0.2-1) mg/dl AST 25 (15-37) U/L ALT 18 (12-78) U/L Alkaline Phosphatase 91 (45-117) U/L Ammonia 75.9 H (11-32) umol/L Total Protein 7.3 (6.4-8.2) gm/dl Albumin 2.2 L (3.4-5.0) gm/dl Globulin 5.1 H (2.5-4.0) gm/dl Albumin/Globulin Ratio 0.4 L (0.9-2) Ur Random Creatinine mg/dl U Random Total Protein (0-11.9) mg/dl Ur Random Sodium mmol/L Protein/Creatinin Ratio (0-0.2) Complement C3 Complement C4 Tot Complement (CH50) Phospholip A2 Rec IFA Phospholip A2 Rec ELIDIA 04/29/20 04/29/20 04/28/20 Range/Units 08:25 06:57 20:05 WBC 6.38 (4.8-10.8) K/uL RBC 3.78 L (4.7-6.1) M/uL Hgb 12.3 L (14.0-18.0) g/dL Hct 35.0 L (42-52) % MCV 92.6 (80-100) fL MCH 32.5 (25-34) pg MCHC 35.1 (32-36) g/dL RDW Std Deviation 45.4 (36.4-46.3) fL RDW Coeff of Kianna 13.5 (11.5-14.5) % Plt Count 153 (130-400) K/uL MPV 10.9 H (7.4-10.4) fL Immature Gran % (Auto) 0.2 % Neut % (Auto) 51.9 % Lymph % (Auto) 29.2 % [place] % (Auto) 16.5 % Eos % (Auto) 1.9 % Baso % (Auto) 0.3 % Neut # (Auto) 3.32 (1.4-6.5) K/uL Lymph # (Auto) 1.86 (1.2-3.4) K/uL [place] # (Auto) 1.05 H (0.11-0.59) K/uL Eos # (Auto) 0.12 (0-0.5) K/uL Baso # (Auto) 0.02 (0-0.2) K/uL Immature Gran # (Auto) 0.01 (0.00-0.02) K/uL PT (9.0-12.0) Seconds INR (0.9-1.1) Sodium (136-145) mmol/L Potassium (3.5-5.1) mmol/L Chloride (98-107) mmol/L Carbon Dioxide (21-32) mmol/L Anion Gap (3-11) BUN (7-18) mg/dl Creatinine (0.6-1.4) mg/dl Est Cr Clr Drug Dosing ml/min Est GFR ( Amer) Est GFR (Non-Af Amer) BUN/Creatinine Ratio (10-20) Glucose (70-99) mg/dl POC Glucose 199 H 170 H (70-99) mg/dl Estimat Average Glucose mg/dl Hemoglobin A1c (4.5-5.6) % Calcium (8.5-10.1) mg/dl Total Bilirubin (0.2-1) mg/dl AST (15-37) U/L ALT (12-78) U/L Alkaline Phosphatase (45-117) U/L Ammonia (11-32) umol/L Total Protein (6.4-8.2) gm/dl Albumin (3.4-5.0) gm/dl Globulin (2.5-4.0) gm/dl Albumin/Globulin Ratio (0.9-2) Ur Random Creatinine mg/dl U Random Total Protein (0-11.9) mg/dl Ur Random Sodium mmol/L Protein/Creatinin Ratio (0-0.2) Complement C3 Complement C4 Tot Complement (CH50) Phospholip A2 Rec IFA Phospholip A2 Rec ELIDIA 04/28/20 04/28/20 04/28/20 Range/Units 14:48 14:48 14:48 WBC (4.8-10.8) K/uL RBC (4.7-6.1) M/uL Hgb (14.0-18.0) g/dL Hct (42-52) % MCV (80-100) fL MCH (25-34) pg MCHC (32-36) g/dL RDW Std Deviation (36.4-46.3) fL RDW Coeff of Kianna (11.5-14.5) % Plt Count (130-400) K/uL MPV (7.4-10.4) fL Immature Gran % (Auto) % Neut % (Auto) % Lymph % (Auto) % [place] % (Auto) % Eos % (Auto) % Baso % (Auto) % Neut # (Auto) (1.4-6.5) K/uL Lymph # (Auto) (1.2-3.4) K/uL [place] # (Auto) (0.11-0.59) K/uL Eos # (Auto) (0-0.5) K/uL Baso # (Auto) (0-0.2) K/uL Immature Gran # (Auto) (0.00-0.02) K/uL PT (9.0-12.0) Seconds INR (0.9-1.1) Sodium (136-145) mmol/L Potassium (3.5-5.1) mmol/L Chloride (98-107) mmol/L Carbon Dioxide (21-32) mmol/L Anion Gap (3-11) BUN (7-18) mg/dl Creatinine (0.6-1.4) mg/dl Est Cr Clr Drug Dosing ml/min Est GFR ( Amer) Est GFR (Non-Af Amer) BUN/Creatinine Ratio (10-20) Glucose (70-99) mg/dl POC Glucose (70-99) mg/dl Estimat Average Glucose mg/dl Hemoglobin A1c (4.5-5.6) % Calcium (8.5-10.1) mg/dl Total Bilirubin (0.2-1) mg/dl AST (15-37) U/L ALT (12-78) U/L Alkaline Phosphatase (45-117) U/L Ammonia (11-32) umol/L Total Protein (6.4-8.2) gm/dl Albumin (3.4-5.0) gm/dl Globulin (2.5-4.0) gm/dl Albumin/Globulin Ratio (0.9-2) Ur Random Creatinine 243.0 243.0 mg/dl U Random Total Protein 817.6 H (0-11.9) mg/dl Ur Random Sodium 27 mmol/L Protein/Creatinin Ratio 3.4 H (0-0.2) Complement C3 Complement C4 Tot Complement (CH50) Phospholip A2 Rec IFA Phospholip A2 Rec ELIDIA PG Care Time/CCT Total # of Minutes Spent Total Time Spent with Patient: Total time spent is greater than 50% in coordination of care (as documented) at patient's floor/unit and/or counseling patient: Coding Level of Care Code 32332 Subseq Hosp Care Lvl 3 Diagnoses Acute hepatic encephalopathy K72.00 Altered mental status R40.0 Altered mental status type: somnolence Acute on chronic kidney failure N17.9; N18.9 Acute renal failure type: unspecified Chronic kidney disease stage: unspecified stage Anemia, unspecified D64.9 Hypertensive urgency I16.0 Liver cirrhosis K74.60 Ascites presence: without ascites Hepatic cirrhosis type: unspecified hepatic cirrhosis Esophageal varices without bleeding I85.00 Type 2 diabetes mellitus E11.9 Microscopic hematuria R31.29 Umbilical hernia without obstruction or gangrene K42.9 GERD (gastroesophageal reflux disease) K21.9 Low back pain M54.5 Hyperlipidemia E78.5 HCV (hepatitis C virus) B19.20 Proteinuria R80.9 DVT prophylaxis Z29.9 (1) Liver cirrhosis Ascites presence: without ascites Hepatic cirrhosis type: unspecified hepatic cirrhosis Qualified Code(s): K74.60 - Unspecified cirrhosis of liver (2) Altered mental status Altered mental status type: somnolence Qualified Code(s): R40.0 - Somnolence (3) Acute on chronic kidney failure Acute renal failure type: unspecified Chronic kidney disease stage: unspecified stage Qualified Code(s): N17.9 - Acute kidney failure, unspecified; N18.9 - Chronic kidney disease, unspecified
[2020-04-29] MEDS: AMLODIPINE BESYLATE 5 MG TAB PO SCH (12:20)
--- NOTE | 2020-04-29 13:04 | Nephrology Consultation ---
Date of Consultation April 29, 2020 Assessment & Plan (1) Acute on chronic kidney failure: Subacute component progressive over several months. Creatinine baseline 1.8 mg/dL in December. Creatinine 3.45 mg/dL last month. No specific trigger for recent worsening. No emergent indication for dialysis. Proteinuria will be quantified with a 24 hour collection. Screening for a monoclonal process with SPEP/IF and 24 hour UPEP will be obtained. The patient is not hypercalcemic but has had progressive anemia requiring CECY therapy. Serum complement levels will be checked with next blood work. Random urine sample unreliable in REDD but suggestive of nephrotic range proteinuria. Accelerated BP and hypoalbuminemia as well as recent history of edema also suggestive of underlying glomerular disease. Diabetic kidney disease less likely given clinical presentation but certainly possible. Urine microscopy negative for WBC's. No specific medication triggers for AIN. Clinical presentation not consistent with RPGN. High clinical suspicion for secondary FSGS. Ultimately, biopsy may be necessary for diagnosis. Additional records regarding history of hepatitis C have been requested. [facility] reported that records will be available once infection control nurse is available tomorrow. Volume status euvolemic to slightly hypovolemic. Appears intravascularly dry and FeNa low. Diuretics held. Avoid significantly positive fluid balance. Nothing gynecomastia, I would avoid restarting spironolactone in the future. Electrolytes normal. PLA2r ab will be sent for completeness. Medications are appropriately dosed for kidney function. Defer GENNY/ARB for now. (2) Altered mental status: Improving with management for HE. No uremic findings to necessitate ROOF SLATER at this time. (3) Anemia, unspecified: Anemia of CKD. Screening for underlying monoclonal or plasma cell disease. Will monitor. Hgb 12.3, CECY therapy held. (4) Hypertensive urgency: Amlodipine 5 mg daily started today. Titrate nadolol as tolerated. Diuretics held. BP reasonably improved. Duplex negative for CORINA. (5) Liver cirrhosis: MELD 20 (based on renal dysfunction). Child-Hernandez B+. Additional records requested. Clinical presentation is not consistent with HRS. History of Present Illness Reason for Consultation: REDD/CKD Requesting Physician: Tali Crooks MD Attending Physician: Tali Crooks MD History of Present Illness Mr. Chicho Moreira is a 65-year-old male with hepatitis C cirrhosis and chronic kidney disease admitted with hepatic encephalopathy and REDD. He is an inmate at [facility]. Chicho was brought to the ER at [facility] yesterday for evaluation of worsening kidney function and mental status changes. Chicho has been increasingly fatigued and lethargic over the past several days. Serum ammonia elevated at 75 at [facility]. Treatment with lactulose started. There is no documented history of hepatic encephalopathy. Chicho does not have ascites on imaging. He denies any history of HE or ascites in the past. Reported complications of cirrhosis include varices without history of bleed. He was awake and answering questions during my evaluation earlier today. Personal insight into his medical conditions is limited. I did speak with one of the nurses from the [facility], Kathe, who provided additional background information. Chicho's recent medical history is notable for progressively rising serum creatinine. Creatinine was 1.82 mg/dL in December. It was 2.9 mg/dL in February and 3.45 mg/dL in March. Yesterday, creatinine was found to be 4.6 mg/dL. UA notable for 3+ protein, 1+ glucose, 2+ blood. Microscopy negative for WBC's, 5- 10 RBC. Urine sodium 27 with FeNa 0.5%. Serum albumin 2.2. Renal artery duplex negative for stenosis. CT abdomen/pelvis demonstrated normal appearing kidneys without evidence of obstruction. Chicho has been non-oliguric (200 ml of urine since admission). He had no acute complaints at the time of my assessment. However, Chicho noted that his hands have been shaking when he eats. His appetite has been poor. He has had issues with fluid retention over the past several week s including abdominal and lower extremity edema. He denies any change in urine output or LUTS. Chicho administers his own diuretics and insulin at the [facility]. He has been reportedly compliant with both. Hemoglobin A1c is 5.1. Diuretic therapy had included furosemide 160 mg daily which was switched to Bumex 2 mg twice daily at the end of March. Volume status seemed to respond well to the adjustment with significant improvement in edema. Medical history is notable for hepatitis C for which Chicho was treated with Epclusa from February to April 2019. He has longstanding insulin dependent diabetes mellitus. He has anemia attributed to anemia of chronic disease for which he has been maintained on weekly epoetin. Chicho denies any family history of kidney disease. He does not have any background knowledge about dialysis and was receptive to education. Allergies Allergy/AdvReac Type Severity Reaction Status Date / Time No Known Allergies Allergy Unverified 04/28/20 11:07 Home Medications Home Medications Medication Instructions Recorded Confirmed Type acetaminophen 500 mg PO QID PRN 04/28/20 04/28/20 History aspirin [Aspirin Low Dose] 81 mg PO DAILY 04/28/20 04/28/20 History bumetanide 2 mg PO DAILY 04/28/20 04/28/20 History epoetin amy-epbx 10,000 unit SUBCUT WK 04/28/20 04/28/20 History insulin NPH isoph U-100 human 38 unit SUBCUT BID 04/28/20 04/28/20 History [Novolin N NPH U-100 Insulin] insulin regular human [Novolin R 0 unit SUBCUT UD 04/28/20 04/28/20 History Flexpen] iron,carbonyl-vitamin C [Vitron-C] 1 tab PO DAILY 04/28/20 04/28/20 History nadolol 20 mg PO BID 04/28/20 04/28/20 History nortriptyline 25 mg PO HS 04/28/20 04/28/20 History omeprazole 20 mg PO DAILY 04/28/20 04/28/20 History spironolactone 50 mg PO DAILY 04/28/20 04/28/20 History Patient History Medical History Allergic rhinitis Anemia, unspecified Chronic kidney disease, unspecified Esophageal varices without bleeding Flatulence GERD (gastroesophageal reflux disease) HCV (hepatitis C virus) Treated Hyperlipidemia Hypertension Liver cirrhosis Low back pain Microscopic hematuria Onychomycosis Pruritus, unspecified Type 2 diabetes mellitus Umbilical hernia without obstruction or gangrene Social History Smoking Status: Former smoker Hx Alcohol Use: No Hx Substance Use: No Communication Ability: Effective Oil Deliverer Required: No Beliefs That Will Affect Care: None Current Living Situation: Other Other Information That Helps Us Care for You: No Feels Safe at Home: Yes Safety Concerns: Feels Safe At This Time Review of Systems Review of Systems: All systems reviewed & are unremarkable except as noted in HPI & below Physical Exam Constitutional: well developed; no acute distress Eyes: no scleral abnormality and no corneal abnormality ENMT: Mouth: no oral mucosal abnormality and oral mucous membranes not dry Neck: normal visual inspection and trachea midline Respiratory: normal respiratory effort Auscultation: lungs clear to auscultation bilaterally Cardiovascular: Rate/Rhythm: regular rate Heart Sounds: normal S1 and normal S2 Extremities: no edema Gastrointestinal (Abdomen): Inspection/Auscultation: + abdomen distended and + hyperactive bowel sounds Percussion/Palpation: + abdomen tender (mildly tender in right lower quadrant) and abdomen soft; no guarding Musculoskeletal: Extremities: no cyanosis and no clubbing Skin: normal turgor; no lesions Neurologic: Motor/Sensory: no tremor and no asterixis Psychiatric: Orientation: alert and oriented x 3 Results & Data ([facility]) Vital Signs (Past 12 Hours) Vital Signs Temp Pulse Pulse Resp BP Pulse Ox 04/29/20 11:33 36.6 C 82 18 156/88 H 98 04/29/20 07:30 36.4 C L 86 20 170/90 H 98 04/29/20 07:00 86 04/29/20 03:52 36.4 C L 84 18 187/89 H 99 Laboratory Results Laboratory Results - last 24 hr 04/28/20 04/28/20 04/28/20 14:48 14:48 14:48 WBC RBC Hgb Hct MCV MCH MCHC RDW Std Deviation RDW Coeff of Kianna Plt Count MPV Immature Gran % (Auto) Neut % (Auto) Lymph % (Auto) [place] % (Auto) Eos % (Auto) Baso % (Auto) Neut # (Auto) Lymph # (Auto) [place] # (Auto) Eos # (Auto) Baso # (Auto) Immature Gran # (Auto) PT INR Sodium Potassium Chloride Carbon Dioxide Anion Gap BUN Creatinine Est Cr Clr Drug Dosing Est GFR ( Amer) Est GFR (Non-Af Amer) BUN/Creatinine Ratio Glucose POC Glucose Estimat Average Glucose Hemoglobin A1c Calcium Total Bilirubin AST ALT Alkaline Phosphatase Ammonia Total Protein Albumin Globulin Albumin/Globulin Ratio Urine Color Dark Yellow Urine Appearance Clear Urine pH 5.5 Ur Specific [place] 1.024 Urine Protein 3+ H Urine Glucose (UA) 1+ H Urine Ketones Negative Urine Blood 2+ H Urine Nitrite Negative Urine Bilirubin Negative Urine Urobilinogen Negative Ur Leukocyte Esterase Negative Urine WBC (Auto) 1-5 Urine RBC (Auto) 5-10 H U Hyaline Cast (Auto) 10-30 H U Epithel Cells (Auto) 20-30 H Urine Bacteria (Auto) Negative Ur Random Creatinine 243.0 U Random Total Protein Ur Random Sodium Protein/Creatinin Ratio Urine Opiates Screen Neg Ur Methadone, Qual Neg Urine Barbiturates Neg Ur Phencyclidine (PCP) Neg U Amphetamin/Meth Scrn Neg MDMA (Ecstasy) Screen Neg U Benzodiazepines Scrn Neg Ur Cocaine Metabolite Neg U Marijuana (THC) Screen Neg 04/28/20 04/28/20 04/28/20 14:48 14:48 18:41 WBC RBC Hgb Hct MCV MCH MCHC RDW Std Deviation RDW Coeff of Kianna Plt Count MPV Immature Gran % (Auto) Neut % (Auto) Lymph % (Auto) [place] % (Auto) Eos % (Auto) Baso % (Auto) Neut # (Auto) Lymph # (Auto) [place] # (Auto) Eos # (Auto) Baso # (Auto) Immature Gran # (Auto) PT INR Sodium Potassium Chloride Carbon Dioxide Anion Gap BUN Creatinine Est Cr Clr Drug Dosing Est GFR ( Amer) Est GFR (Non-Af Amer) BUN/Creatinine Ratio Glucose POC Glucose 143 H Estimat Average Glucose Hemoglobin A1c Calcium Total Bilirubin AST ALT Alkaline Phosphatase Ammonia Total Protein Albumin Globulin Albumin/Globulin Ratio Urine Color Urine Appearance Urine pH Ur Specific [place] Urine Protein Urine Glucose (UA) Urine Ketones Urine Blood Urine Nitrite Urine Bilirubin Urine Urobilinogen Ur Leukocyte Esterase Urine WBC (Auto) Urine RBC (Auto) U Hyaline Cast (Auto) U Epithel Cells (Auto) Urine Bacteria (Auto) Ur Random Creatinine 243.0 U Random Total Protein 817.6 H Ur Random Sodium 27 Protein/Creatinin Ratio 3.4 H Urine Opiates Screen Ur Methadone, Qual Urine Barbiturates Ur Phencyclidine (PCP) U Amphetamin/Meth Scrn MDMA (Ecstasy) Screen U Benzodiazepines Scrn Ur Cocaine Metabolite U Marijuana (THC) Screen 04/28/20 04/29/20 04/29/20 20:05 06:57 08:25 WBC 6.38 RBC 3.78 L Hgb 12.3 L Hct 35.0 L MCV 92.6 MCH 32.5 MCHC 35.1 RDW Std Deviation 45.4 RDW Coeff of Kianna 13.5 Plt Count 153 MPV 10.9 H Immature Gran % (Auto) 0.2 Neut % (Auto) 51.9 Lymph % (Auto) 29.2 [place] % (Auto) 16.5 Eos % (Auto) 1.9 Baso % (Auto) 0.3 Neut # (Auto) 3.32 Lymph # (Auto) 1.86 [place] # (Auto) 1.05 H Eos # (Auto) 0.12 Baso # (Auto) 0.02 Immature Gran # (Auto) 0.01 PT INR Sodium Potassium Chloride Carbon Dioxide Anion Gap BUN Creatinine Est Cr Clr Drug Dosing Est GFR ( Amer) Est GFR (Non-Af Amer) BUN/Creatinine Ratio Glucose POC Glucose 170 H 199 H Estimat Average Glucose Hemoglobin A1c Calcium Total Bilirubin AST ALT Alkaline Phosphatase Ammonia Total Protein Albumin Globulin Albumin/Globulin Ratio Urine Color Urine Appearance Urine pH Ur Specific [place] Urine Protein Urine Glucose (UA) Urine Ketones Urine Blood Urine Nitrite Urine Bilirubin Urine Urobilinogen Ur Leukocyte Esterase Urine WBC (Auto) Urine RBC (Auto) U Hyaline Cast (Auto) U Epithel Cells (Auto) Urine Bacteria (Auto) Ur Random Creatinine U Random Total Protein Ur Random Sodium Protein/Creatinin Ratio Urine Opiates Screen Ur Methadone, Qual Urine Barbiturates Ur Phencyclidine (PCP) U Amphetamin/Meth Scrn MDMA (Ecstasy) Screen U Benzodiazepines Scrn Ur Cocaine Metabolite U Marijuana (THC) Screen 04/29/20 04/29/20 04/29/20 08:25 08:25 08:25 WBC RBC Hgb Hct MCV MCH MCHC RDW Std Deviation RDW Coeff of Kianna Plt Count MPV Immature Gran % (Auto) Neut % (Auto) Lymph % (Auto) [place] % (Auto) Eos % (Auto) Baso % (Auto) Neut # (Auto) Lymph # (Auto) [place] # (Auto) Eos # (Auto) Baso # (Auto) Immature Gran # (Auto) PT 12.7 H INR 1.2 H Sodium 138 Potassium 4.2 Chloride 108 H Carbon Dioxide 20 L Anion Gap 10.0 BUN 61 H Creatinine 4.61 H* Est Cr Clr Drug Dosing 17.5 Est GFR ( Amer) 14.3 Est GFR (Non-Af Amer) 12.3 BUN/Creatinine Ratio 13.3 Glucose 192 H POC Glucose Estimat Average Glucose Hemoglobin A1c Calcium 9.3 Total Bilirubin 1.0 AST 25 ALT 18 Alkaline Phosphatase 91 Ammonia 75.9 H Total Protein 7.3 Albumin 2.2 L Globulin 5.1 H Albumin/Globulin Ratio 0.4 L Urine Color Urine Appearance Urine pH Ur Specific [place] Urine Protein Urine Glucose (UA) Urine Ketones Urine Blood Urine Nitrite Urine Bilirubin Urine Urobilinogen Ur Leukocyte Esterase Urine WBC (Auto) Urine RBC (Auto) U Hyaline Cast (Auto) U Epithel Cells (Auto) Urine Bacteria (Auto) Ur Random Creatinine U Random Total Protein Ur Random Sodium Protein/Creatinin Ratio Urine Opiates Screen Ur Methadone, Qual Urine Barbiturates Ur Phencyclidine (PCP) U Amphetamin/Meth Scrn MDMA (Ecstasy) Screen U Benzodiazepines Scrn Ur Cocaine Metabolite U Marijuana (THC) Screen 04/29/20 04/29/20 08:25 11:14 WBC RBC Hgb Hct MCV MCH MCHC RDW Std Deviation RDW Coeff of Kianna Plt Count MPV Immature Gran % (Auto) Neut % (Auto) Lymph % (Auto) [place] % (Auto) Eos % (Auto) Baso % (Auto) Neut # (Auto) Lymph # (Auto) [place] # (Auto) Eos # (Auto) Baso # (Auto) Immature Gran # (Auto) PT INR Sodium Potassium Chloride Carbon Dioxide Anion Gap BUN Creatinine Est Cr Clr Drug Dosing Est GFR ( Amer) Est GFR (Non-Af Amer) BUN/Creatinine Ratio Glucose POC Glucose 260 H Estimat Average Glucose 100 Hemoglobin A1c 5.1 Calcium Total Bilirubin AST ALT Alkaline Phosphatase Ammonia Total Protein Albumin Globulin Albumin/Globulin Ratio Urine Color Urine Appearance Urine pH Ur Specific [place] Urine Protein Urine Glucose (UA) Urine Ketones Urine Blood Urine Nitrite Urine Bilirubin Urine Urobilinogen Ur Leukocyte Esterase Urine WBC (Auto) Urine RBC (Auto) U Hyaline Cast (Auto) U Epithel Cells (Auto) Urine Bacteria (Auto) Ur Random Creatinine U Random Total Protein Ur Random Sodium Protein/Creatinin Ratio Urine Opiates Screen Ur Methadone, Qual Urine Barbiturates Ur Phencyclidine (PCP) U Amphetamin/Meth Scrn MDMA (Ecstasy) Screen U Benzodiazepines Scrn Ur Cocaine Metabolite U Marijuana (THC) Screen PG Care Time/CCT Total # of Minutes Spent Total Time Spent with Patient: Total time spent is greater than 50% in coordination of care (as documented) at patient's floor/unit and/or counseling patient: Coding Level of Care Code 92327 Inpt Consult Level 5 Diagnoses Acute on chronic kidney failure N17.9; N18.9 Acute renal failure type: unspecified Chronic kidney disease stage: unspecified stage Altered mental status R40.0 Altered mental status type: somnolence Anemia, unspecified D64.9 Hypertensive urgency I16.0 Liver cirrhosis K74.60 Hepatic cirrhosis type: unspecified hepatic cirrhosis Ascites presence: without ascites (1) Altered mental status Altered mental status type: somnolence Qualified Code(s): R40.0 - Somnolence (2) Acute on chronic kidney failure Acute renal failure type: unspecified Chronic kidney disease stage: unspecified stage Qualified Code(s): N17.9 - Acute kidney failure, unspecified; N18.9 - Chronic kidney disease, unspecified (3) Liver cirrhosis Hepatic cirrhosis type: unspecified hepatic cirrhosis Ascites presence: without ascites Qualified Code(s): K74.60 - Unspecified cirrhosis of liver
[2020-04-29 15:34] LABS: Calcium 8.6 mg/dl (8.5-10.1); Creatinine Clr Calc Pharmacy 17.8 ml/min; Est GFR (African American) 14.5; Est GFR (Non-African American) 12.5; Potassium 3.9 mmol/L (3.5-5.1)
[2020-04-29] MEDS: INSULIN HUMAN NPH SC SCH (16:45)
[2020-04-29] MEDS: NORTRIPTYLINE HCL 25 MG CAP PO SCH (20:45)
[2020-04-29] MEDS: HEPARIN SOD 5,000 UNIT/0.5 ML VIAL SQ SCH (20:56)
[2020-04-30] MEDS: INSULIN ASPART 100 UNITS/ML 3 ML PEN SC SCH ×6 (00:14→21:07)
[2020-04-30] MEDS: NITROGLYCERIN 2% OINTMENT 30GM TUBE EXT SCH ×3 (05:04→17:41)
[2020-04-30 07:20] LABS: Albumin Globulin Ratio 0.4 (0.9-2); Albumin Level 1.9 gm/dl (3.4-5.0); BUN Creatinine Ratio 14.2 (10-20); Bilirubin,Total 0.8 mg/dl (0.2-1); Calcium 8.8 mg/dl (8.5-10.1); Creatinine Clr Calc Pharmacy 17.3 ml/min; Est GFR (Non-African American) 12.1; Globulin 4.9 gm/dl (2.5-4.0); Potassium 3.8 mmol/L (3.5-5.1); Total Protein 6.8 gm/dl (6.4-8.2)
[2020-04-30] MEDS: nadoloL 40 MG TAB PO SCH ×2 (08:20→21:06)
[2020-04-30] MEDS: PANTOprazole 40 MG TAB PO SCH (08:20)
[2020-04-30] MEDS: HEPARIN SOD 5,000 UNIT/0.5 ML VIAL SQ SCH ×2 (08:21→21:08)
[2020-04-30] MEDS: ASPIRIN 81 MG ECTAB PO SCH (08:21)
[2020-04-30] MEDS: AMLODIPINE BESYLATE 5 MG TAB PO SCH (08:21)
[2020-04-30] MEDS: FERROUS FUMARATE/ASCORBIC ACID 65 MG CAPCR PO SCH (08:21)
[2020-04-30] MEDS: LACTULOSE SYRUP 30 GM/45 ML UDP PO SCH ×4 (08:21→21:06)
[2020-04-30] MEDS: INSULIN HUMAN NPH SC SCH ×2 (08:22→17:35)
--- NOTE | 2020-04-30 08:27 | Pharmacy Report ---
Pharmacy Glycemic Short Note 2 - Date of Service April 30, 2020 - Glycemic Short BSG Results (Last 24 hours): 04/29/20 04/29/20 04/29/20 08:25 11:14 14:51 Glucose 192 H 217 H POC Glucose 260 H 04/29/20 04/29/20 04/30/20 16:13 20:33 00:04 Glucose POC Glucose 212 H 203 H 236 H 04/30/20 04/30/20 04/30/20 04:01 05:59 07:21 Glucose 190 H POC Glucose 230 H 173 H ASSESSMENT: 04/30: * Patient received total of 78 units of insulin yesterday, of which 50 were NPH * Fasting BSG 173 mg/dL - plan to continue with NPH scale this AM * Appears diet still poor yesterday, continue same CF/CR 04/29: * Patient received total of 25 units of insulin yesterday, of which 20 were NPH * Fasting BSG elevated at 199 mg/dL - will titrate up basal insulin. Will be conservative as PO intake still limited/REDD on admission * Plan to give another 20 units of NPH this AM and then add a scale for dinner time * Plan to tighten CF/CR PLAN FOR INPATIENT GLYCEMIC CONTROL: * Basal insulin * NPH 25-35 units with dinner based upon BSG scale * Bolus insulin * NovoLog per scale ACHS or Q6hrs while NPO * Goal Range: Low 110 mg/dL - High 140 mg/dL * Correction Factor: 15 mg/dL/unit * Nutritional / Prandial insulin per carb ratio of 1 unit per 6 grams CHO consumed PLAN FOR DISCHARGE: * A1c 5.1% on admission - level likely inaccurate due to various disease states (ex anemia) * Recommend self monitoring of blood sugars at home to determine if adjustments in insulin are appropriate * May need to adjust insulin at discharge if renal function does not improve, will follow for further recommendations Please note that the plan above was derived based on current level of insulin resistance and hospital stress. These recommendations are appropriate for inpatient admission only. Plan of care upon discharge will need to be reassessed to avoid potential outpatient hypo/hyperglycemia. Thank you.
--- NOTE | 2020-04-30 09:49 | Nephrology Progress Note ---
Date of Service April 30, 2020 Assessment & Plan (1) Acute on chronic kidney failure: * Progressive CKD. Baseline Cr 1.8 01/09. This has risen to 4.67 today and patient is reported to be oliguric. Volume status and electrolyte balance are currently acceptable but patient is nearing need for CADMIUM BURNER. EGFR is 14 cc/min. Discussed w/ patient today. He is accepting of HD if needed * Will request medical records from [facility] * Abdominal CT 04/28/20: cirrhotic liver and abdominal varices c/w portal venous HTN, mild perinephric stranding but no hydronephrosis. Mild bladder wall thickening noted. Will order renal US for kidney measurements * Will place shelton catheter and monitor I&O's * Patient has nephrotic syndrome. Ddx is broad and includes both primary and secondary causes: FSGS, membranous GN, MPGN, diabetic nephropathy, hypertensive nephrosclerosis, myeloma kidney and amyloidosis. Complement, PLA2 Ab, SIEP/UIEP have been ordered. Patient has a h/o treated Hep C (Epclusa). Will add Hep B & HIV testing * [facility] inmate who will likely require HD via [facility] ([facility]). Recommend transfer to [facility] for IR marshall kidney biopsy and initiation of HD when needed (2) Anemia, unspecified: * Has received Retacrit via [facility] * Hgb currently acceptable * Await SPEP/UPEP results (3) Hypertensive urgency: * SBP improved following addition of amlodipine * Will increase amlodipine to 10 mg daily and monitor BP (4) Acute hepatic encephalopathy: * Resolved w/ lactulose therapy Admission and Anticipated Discharge Date Admission Date: April 29, 2020 Subjective Mr. Moreira was seen & examined in his hospital room this morning. He was oriented to self and month. He complains of mild periumbilical discomfort and had 5 BM related to lactulose therapy yesterday. 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 Medical records are not yet available from [facility] Review of Systems Constitutional: no fever Eyes: no problem reported Ear, Nose, Mouth, Throat: no problem reported Respiratory: no dyspnea Cardiovascular: no chest pain and no palpitations Gastrointestinal: + abdominal pain; no nausea Genitourinary: no dysuria, no urinary hesitancy and no hematuria Musculoskeletal: no back pain Integumentary: no rash Neurologic: no dizziness Physical Exam Constitutional: not in distress Eyes: PERRL, conjunctivae normal, anicteric sclerae ENMT: Mouth: + dry oral mucous membranes Neck: trachea midline, no thyromegaly Respiratory: normal respiratory effort, lungs clear to auscultation Cardiovascular: RRR, no murmur, no edema Gastrointestinal (Abdomen): normal bowel sounds, soft, nontender, no hepatosplenomegaly Musculoskeletal: Extremities: no cyanosis Skin: no rashes, warm and dry Neurologic: awake; not confused Results & Data ([facility]) Vital Signs (Past 12 Hours) Vital Signs Temp Pulse Pulse Resp BP Pulse Ox 04/30/20 07:32 82 04/30/20 07:18 36.5 C 80 20 169/88 H 98 04/30/20 03:59 36.6 C 87 20 168/88 H 96 04/29/20 23:12 36.9 C 75 16 168/88 H 97 04/29/20 23:00 108 H Laboratory Results Laboratory Tests 04/29/20 04/30/20 08:25 05:59 WBC 6.38 Hgb 12.3 L Hct 35.0 L Plt Count 153 Sodium 137 Potassium 3.8 Chloride 106 Carbon Dioxide 22 BUN 66 H Creatinine 4.67 H* Glucose 190 H AST 24 ALT 16 Albumin 1.9 L PG Care Time/CCT Total # of Minutes Spent Total Time Spent with Patient: Total time spent is greater than 50% in coordination of care (as documented) at patient's floor/unit and/or counseling patient: Coding Level of Care Code 88540 Subseq Hosp Care Lvl 3 Diagnoses Acute on chronic kidney failure N17.9; N18.9 Acute renal failure type: unspecified Chronic kidney disease stage: unspecified stage Anemia, unspecified D64.9 Hypertensive urgency I16.0 Acute hepatic encephalopathy K72.00 (1) Acute on chronic kidney failure Acute renal failure type: unspecified Chronic kidney disease stage: unspecified stage Qualified Code(s): N17.9 - Acute kidney failure, unspecified; N18.9 - Chronic kidney disease, unspecified
--- NOTE | 2020-04-30 10:50 | Discharge Summary ---
Date of Service April 30, 2020 Admission HPI Per Admitting Provider Chicho Moreira is a 65-year-old male inmate of [facility], with known liver cirrhosis and chronic kidney disease who presents to the ER with altered mental state. Hand over from long-term that the patient has had altered mental status with increasing lethargy, fatigue and confusion over the last 24 hours. The patient confirms he is feeling generally more fatigued and lethargic than usual with slurring of his speech but feels this is been getting progressively worse for weeks. Denies lateralizing weakness, change in hearing, change in vision, change in sensation. No chest pain, shortness of breath, fever, chills, abdominal pain, nausea, vomiting, dysuria. Last bowel movement per patient was 2 days ago. No lactulose noted on medication list. He recently transferred to [facility] in the last month. Confirmation from present that he took his 7 AM medications. BSG @ 7:20 with 38 units of Novolin N given. BP this morning 168/100. Discussed case with Jaci RN @ [facility] -reports he has been more sluggish and slow to respond over the last few days. Significantly worse this morning with lethargy and tiredness. Previously on Lasix 40 mg p.o. daily until April 12. He was then trialed to take his own Lasix 80mg PO daily from April 12- but reportedly was non-compliant with this and caused hypervolemia. He was therefore switched to Bumex 2mg starting on . Also notes his glucose levels fluctuate considerably from double digits to 300s. Date 03/13 04/13 04/25 BUN 40 34 57 Cr 2.92 3.45 4.74 Date 04/09 04/19 04/25 10am 04/25 6pm 04/26 9 BP 150/86 180/100 140/82 190/91 170/88 168/100 Principal Diagnosis Acute kidney injury, proteinuria, hepatic encephalopathy Discharge Exam Constitutional WD/WN, vitals as above + obese Eyes sclerae not anicteric Neck trachea midline, no thyromegaly Respiratory normal respiratory effort, lungs clear to auscultation Cardiovascular RRR, no murmur, no edema Chest (Breasts) Chest: normal inspection of chest Gastrointestinal (Abdomen) normal bowel sounds, soft, nontender, no hepatosplenomegaly Inspection/Auscultation: normal bowel sounds; abdomen not distended Percussion/Palpation: abdomen soft and + hernia (Umbilical hernia, reducible); abdomen nontender Musculoskeletal Extremities: extremities normal to inspection; no cyanosis and no clubbing Skin no rashes, warm and dry Neurologic moves all extremities and awake; no focal motor deficits Psychiatric Orientation: alert, oriented x 3 and cooperative Eye Contact: + fair eye contact Affect: + flat affect Lymphatic no lymphedema Discharge Data Allergies Allergy/AdvReac Type Severity Reaction Status Date / Time No Known Allergies Allergy Unverified 04/28/20 11:07 Consultations 04/28/20 14:41 ED Decision to Admit Stat 04/29/20 00:35 Consult Nephrology Routine 04/30/20 10:44 Burn CD for patient Stat Ordered Studies 04/28/20 11:40 CT head/brain wo con Stat 04/28/20 11:42 CT abd pelvis wo con Stat 04/28/20 22:06 US duplex renal artery Routine 04/30/20 11:30 US renal/blad retro comp Routine Chest x-ray Hospital Course (1) Acute hepatic encephalopathy: Presented with lethargy and altered mental status. Ammonia 65 on admission. Mild fecal retention on CT Moving bowels now. Mental status is now seemingly improved. Repeat ammonia level is actually higher today but is not reliable given that his mental status is improved -Continue lactulose 30ml QID -Aim 3-4 BM daily (2) Altered mental status: Acute encephalopathy most likely secondary to above but also could be from acute kidney injury No evidence of infection with negative chest x-ray, afebrile, no leukocytosis, blood cultures no growth, urinalysis negative for infection, urine drug screen and alcohol levels are negative Now improved (3) Acute on chronic kidney failure: With progressively worsening Cr over the last several months No obstructive cause on CT, renal ultrasound negative. Unclear what caused his initial rise from February Cr 2.92 to March Cr 3.45 and now up to 4.6-appreciate nephrology consultation -FENa is low and spot urine protein creatinine ratio is quite elevated although unreliable in the setting of acute kidney injury, could be suggestive of nephrotic range proteinuria Patient initially dry on exam, suspect prerenal REDD due to overdiuresis from Bumex 2mg started on for hypervolemia. -Continue holding diuretics -Collecting 24-hour urine, UPEP, SPEP, complement levels, phospholipase A2 as per urology recommendation Ddx is broad and includes both primary and secondary causes: FSGS, membranous GN, MPGN, diabetic nephropathy, hypertensive nephrosclerosis, myeloma kidney and amyloidosis. Complement, PLA2 Ab, SIEP/UIEP have been ordered. Patient has a h/o treated Hep C (Epclusa). Will add Hep B & HIV testing-pending -Work on blood pressure control as below -Follow BMP, with mild metabolic acidosis. Volume status is acceptable -No indication for urgent dialysis but is approaching need for [facility] -Plan to transfer from here to [facility] for renal biopsy-discussed case with nephrology and hospitalist to [facility] -We will need to hold home aspirin for 5 days prior to biopsy (4) Anemia, unspecified: Suspect anemia of chronic disease, anemia of CKD. Continue iron supplementation (Vitron-C). Retacrit 10,000 units given on -does not appear to need this at present. -Follow CBC (5) Hypertensive urgency: No significant change in creatinine for 3 days therefore do not suspect hypertensive emergency. Blood pressure still not well controlled Continue increased dose of nadolol 40 mg p.o. twice daily. Holding diuretics as above. Hydralazine 10 mg IV q4H PRN for sBP > 180. -Added amlodipine and will titrate up to 10 mg daily (6) Liver cirrhosis: Secondary to previously treated hepatitis C. Esophageal varices without bleeding as below. (7) Esophageal varices without bleeding: Seen on imaging here, unclear if he has had previous EGD Continue nadolol No bleeding (8) Type 2 diabetes mellitus: HbA1c here is low at 5.1%-very well controlled, may be somewhat falsely low due to anemia Patient on insulin NPH 38 units subcu twice daily and Novolin R as correction factor at the long-term. No carb coverage noted on medication sheet. Consult pharmacy for glycemic control with basal bolus insulin. -Unclear if nortriptyline is for diabetic neuropathy? Patient is unclear about his medical history (9) Microscopic hematuria: Consider repeating as outpatient CT abdomen/pelvis without masses or abnormalities If persists, would need cystoscopy (10) Umbilical hernia without obstruction or gangrene: Reducible, nonpainful, no overlying concerning skin changes. (11) GERD (gastroesophageal reflux disease): Continue PPI (12) Low back pain: Acetaminophen with max dose 1600 mg. No NSAIDs. (13) Hyperlipidemia: Problem listed however no statin on medication list. (14) HCV (hepatitis C virus): Treated with Epclusa from February to April 2019 Presumably cured (15) Proteinuria: As above Collecting 24-hour urine (16) DVT prophylaxis: SCDs, SQ heparin Disposition-transfer to [facility] for renal biopsy and possible need for dialysis Total Time Total Time Spent Total Time Spent (In Minutes): 45 min Total Time Includes: Examination of the Patient, Discharge Planning, Medication Reconciliation and Communication With Other Providers (Nephrology) Discharge Plan Discharge Items Patient Disposition: Transfer Acute Care Hospital Reason For Visit: ALTERED MENTAL STATE Discharge Diagnosis: REDD, Hepatic encephalopathy Condition on Discharge: Fair Activity: As commented below Bathing: No limitations Exercise/Sports: As tolerated Non-emergency contact: Primary Care Provider and Manager [employer] Call non-emergency contact if: you have any medication questions and your symptoms worsen Follow-up/Referrals: Irais POE [Primary Care Provider] - Diet: Carb Consistent or DM2 and Dialysis Renal Addtl Attending Provider Instructions: Transferred to [facility] for renal biopsy and further management of REDD Pending Studies at Discharge: Yes (Phospholipase A2 recptor antibody,Complement levels,SPEP,UPEP,24 hr Ur Prot) Studies:: Blood cultures-NGTD Stand-Alone Forms: My [employer] Skilled Items Patient informed of condition?: Yes DNR: No Discharge Level of Care: Other Communicable Disease: No Discharge Prognosis: Stable Lines: Peripheral IV Urinary Catheter: Yes Medications and DC Order Prescriptions: New nadolol 40 mg Tablet 40 mg PO BID Qty: 60 RF: 0 amlodipine 10 mg tablet 10 mg PO DAILY Qty: 30 RF: 0 Nitro-Bid 2 % Ointment 1 inch EXT Q6H Qty: 30 RF: 0 lactulose 20 gram/30 mL Solution 30 ml PO QID Qty: 1200 RF: 0 Continued nortriptyline 25 mg Capsule 25 mg PO HS RF: 0 Novolin N NPH U-100 Insulin 100 unit/mL Suspension 38 unit SUBCUT BID RF: 0 omeprazole 20 mg Capsule,Delayed Release(Dr/Ec) 20 mg PO DAILY RF: 0 acetaminophen 500 mg Capsule 500 mg PO QID PRN (Reason: Pain) RF: 0 Novolin R Flexpen 100 unit/mL (3 mL) Insulin Pen 0 unit SUBCUT UD RF: 0 Vitron-C 65 mg iron- 125 mg Tablet,Delayed Release (Dr/Ec) 1 tab PO DAILY RF: 0 epoetin amy-epbx 10,000 unit/mL Solution 10,000 unit subcut WK RF: 0 Discontinued bumetanide 2 mg Tablet 2 mg PO DAILY RF: 0 aspirin [Aspirin Low Dose] 81 mg Tablet,Delayed Release (Dr/Ec) 81 mg PO DAILY RF: 0 spironolactone 25 mg Tablet 50 mg PO DAILY RF: 0 nadolol 20 mg Tablet 20 mg PO BID RF: 0 Discharge Orders: Discharge Order (Routine); Ordered 04/30/20 Ordered By: Tali Crooks Admission Data Admit Date/Time: 04/29/20 11:55 Attending Provider: Tali Crooks Admit Provider: Trevon Asif Primary Care Provider: Irais POE Other Providers: Gerber Arce Other Interventions: Discharge Summary Assessment (RN) Last Done: 05/01/20 03:35 Coding Level of Care Code D/C Day Management >30 mins Diagnoses Acute hepatic encephalopathy K72.00 Altered mental status R40.0 Altered mental status type: somnolence Acute on chronic kidney failure N17.9; N18.9 Acute renal failure type: unspecified Chronic kidney disease stage: unspecified stage Anemia, unspecified D64.9 Hypertensive urgency I16.0 Liver cirrhosis K74.60 Ascites presence: without ascites Hepatic cirrhosis type: unspecified hepatic cirrhosis Esophageal varices without bleeding I85.00 Type 2 diabetes mellitus E11.9 Microscopic hematuria R31.29 Umbilical hernia without obstruction or gangrene K42.9 GERD (gastroesophageal reflux disease) K21.9 Low back pain M54.5 Hyperlipidemia E78.5 HCV (hepatitis C virus) B19.20 Proteinuria R80.9 DVT prophylaxis Z29.9
--- NOTE | 2020-04-30 11:53 | Ultrasound Report ---
ULTRASOUND KIDNEYS AND BLADDER CLINICAL HISTORY: Acute renal insufficiency. COMPARISON STUDY: Abdominal CT dated 04/28/2020. TECHNIQUE: Real-time, grayscale, and color flow sonography of the kidneys and bladder is performed. I mages are reviewed in the transverse and longitudinal planes. FINDINGS: Kidneys: The kidneys are normal in size and echotexture. The right kidney measures 11.2 cm and the le ft kidney measures 11.9 cm. There is no hydronephrosis. No shadowing renal calculi are identified. T here is no sonographic evidence of contour deforming renal mass lesion. No perinephric fluid is ident ified. Bladder: The bladder is partially decompressed around a Finn catheter. The bladder wall appears mild ly thickened which may be related to chronic outlet obstruction. Ureteral jets were not seen. IMPRESSION: 1. The kidneys are normal in size and without hydronephrosis. 2. The bladder is partially decompressed around a Finn catheter. ACT 112: Negative or not required by law. Electronically signed by: Juan Antonio Gibbs M.D. 04/30/2020 11:52 AM
[2020-04-30 13:20] LABS: Hepatitis B Surface Ab Quant < 3.10 mIU/mL (>or=10mIU/mL Immune); Hepatitis B Surface Antibody Non-Immune
[2020-04-30 13:31] LABS: Hepatitis B Surface Antigen Neg (Neg)
[2020-04-30] MEDS: NORTRIPTYLINE HCL 25 MG CAP PO SCH (21:08)
[2020-05-01] MEDS: NITROGLYCERIN 2% OINTMENT 30GM TUBE EXT SCH (00:06)
[2020-05-01] MEDS ORDERED: AMLODIPINE BESYLATE 5 MG TAB PO SCH (09:00)
[2020-05-02 10:22] LABS: Albumin 2.3 g/dL (3.8-4.8); Alpha 1 Globulin 0.3 g/dL (0.2-0.3); Alpha 2 Globulin 0.8 g/dL (0.5-0.9); Beta-1-Globulin 0.4 g/dL (0.4-0.6); Beta-2-Globulin 0.4 g/dL (0.2-0.5); Gamma Globulin 1.9 g/dL (0.8-1.7); Monoclonal Protein Band 1 DNR g/dL (NONE DETECTED); Monoclonal Protein Band 2 DNR g/dL (NONE DETECTED); Monoclonal Protein Band 3 DNR g/dL (NONE DETECTED); Total Protein 6.1 g/dL (6.1-8.1)
[2020-05-02 23:51] LABS: HIV 1 RNA PCR Copies/ML <20 Copies/mL; HIV-1 RNA Log Copies/mL <1.30 Log cps/mL; Hepatitis B Core Antibody IgM NON-REACTIVE (NON-REACTIVE)
[2020-05-05 00:56] LABS: Complement C3 100 mg/dL (82-185); Complement Total(CH50) >60 U/mL (31-60)
== END 2020-05-01 04:35 | disposition short-term general hospital (02) | DRG 442 ==
LOC: ED 10:14 → 2S 10:14 → SUATTDRO 16:11 → 2S 16:43

== ENCOUNTER 2020-05-24 10:19 | Observation (INO) ==
[2020-05-24] MEDS ORDERED: FAMOTIDINE 20MG IV PUSH 20 MG/5 ML SYR IV STA (10:42)
[2020-05-24] MEDS ORDERED: PANTOprazole 80 MG in DEXTROSE 5% 100 ML IV ONE (10:42)
[2020-05-24] MEDS ORDERED: PANTOprazole 40 MG in DEXTROSE 5% 100 ML IV SCH ×2 (10:45→12:30)
[2020-05-24] MEDS ORDERED: SODIUM CHLORIDE 0.9% 500 ML IV SCH (10:45)
[2020-05-24 11:38] LABS: Basophils # (auto) 0.01 K/uL (0-0.2); Basophils % (auto) 0.2 %; Eosinophils # (auto) 0.15 K/uL (0-0.5); Eosinophils % (auto) 2.6 %; Hematocrit (blood only) 31.8 % (42-52); Hemoglobin 11.3 g/dL (14.0-18.0); Immature Granulocytes # (auto) 0.01 K/uL (0.00-0.02); Immature Granulocytes % (auto) 0.2 %; Lymphocytes # (auto) 1.79 K/uL (1.2-3.4); Mean Corpuscular Hemoglobin 32.8 pg (25-34); Mean Corpuscular Hgb Conc 35.5 g/dL (32-36); Mean Corpuscular Volume 92.4 fL (80-100); Mean Platelet Volume 10.4 fL (7.4-10.4); Monocytes % (auto) 13.9 %; Neutrophils # (auto) 3.01 K/uL (1.4-6.5); Neutrophils % (auto) 52.1 %; Platelet Count 152 K/uL (130-400); RDW Coefficient of Variation 13.4 % (11.5-14.5); RDW Standard Deviation 45.2 fL (36.4-46.3); Red Blood Count 3.44 M/uL (4.7-6.1); White Blood Count 5.77 K/uL (4.8-10.8)
[2020-05-24 11:52] LABS: INR 1.2 (0.9-1.1); Partial Thromboplastin Ratio 1.1; Partial Thromboplastin Time 31.4 Seconds (21.0-31.0); Prothrombin Time 12.4 Seconds (9.0-12.0)
[2020-05-24 11:55] LABS: Alanine Aminotransferase 17 U/L (12-78); Albumin Level 2.3 gm/dl (3.4-5.0); Aspartate Aminotransferase 28 U/L (15-37); BUN Creatinine Ratio 9.2 (10-20); Blood Urea Nitrogen 41 mg/dl (7-18); Calcium 9.1 mg/dl (8.5-10.1); Carbon Dioxide 21 mmol/L (21-32); Chloride 115 mmol/L (98-107); Creatinine Clr Calc Pharmacy 19.4 ml/min; Est GFR (African American) 14.8; Est GFR (Non-African American) 12.8; Glucose 116 mg/dl (70-99); Potassium 5.6 mmol/L (3.5-5.1); Sodium 144 mmol/L (136-145)
[2020-05-24] MEDS ORDERED: ONDANSETRON INJ 2 MG/ML 2 ML VIAL IV STA (11:57)
--- NOTE | 2020-05-24 11:59 | CT Scan Report ---
CT SCAN OF THE ABDOMEN AND PELVIS WITHOUT IV CONTRAST CLINICAL HISTORY: Vomiting. COMPARISON STUDY: Abdominal CT dated 04/28/2020. TECHNIQUE: CT scan of the abdomen and pelvis is performed from the lung bases to the proximal femora. Images are reviewed in the axial, sagittal, and coronal planes. IV contrast was not administered for this examination as per the referring clinician. A dose lowering technique was utilized adhering to the principles of ALARA. CT DOSE: 663.33 mGy.cm FINDINGS: Lung bases: The heart is mildly enlarged and without pericardial effusion. A fat-containing Bochdalek hernia is seen at the left lung base. A 14 mm cyst is noted in the right lower lobe. The lung bases are otherwise clear. Gynecomastia is noted. There is a small hiatal hernia. Liver: The unenhanced liver is cirrhotic in morphology and heterogeneous in attenuation. There is nod ularity of the hepatic surface contour. There is no intrahepatic biliary ductal dilatation. Gallbladder: There is a calcified gallstone with no CT evidence of acute cholecystitis. Spleen: The spleen is top normal in size and homogeneous in attenuation. There are perisplenic varice s and a splenorenal shunt. Pancreas: Unremarkable. Adrenal glands: Unremarkable. Kidneys: The unenhanced kidneys are normal in size and without hydronephrosis. There are no renal delmi culi identified. There is no evidence of contour deforming renal mass lesion. There is nonspecific bi lateral perinephric stranding, left greater than right. Abdominal vasculature: The abdominal aorta is normal in course and caliber noting moderate atheroscle rotic calcification. Bowel: The there is moderate colonic fecal retention. There are distended loops of small bowel in the pelvis seen on image number thoracic and 51. These measure up to 3.2 cm diameter. There is a focal t ransition point identified in the central pelvis on image #336, and the distal small bowel loops are relatively decompressed. No focally thick walled bowel loops identified. There is no pneumatosis inte stinalis or portal venous gas. There are scattered colonic diverticula without CT evidence of acute d iverticulitis. The appendix is not visualized. Peritoneum: There is no intraperitoneal free air or abdominal ascites. There are large fat-containing umbilical and periumbilical hernias. Lymphadenopathy: None. Pelvic viscera: The prostate gland is diminutive and heterogeneous. The bladder wall appears mildly t hickened and trabeculated suggesting chronic outlet obstruction. Skeletal structures: No lytic or blastic lesions are seen. IMPRESSION: 1. Question an early/developing or partial small bowel obstruction as above with a transition point s een in the central pelvis. 2. No intraperitoneal free air is identified and there is no abdominal ascites. 3. No focally thick walled bowel loops are identified. There is no pneumatosis intestinalis or portal venous gas. 4. Cirrhotic liver morphology. 5. Cholelithiasis. 6. Nonspecific bilateral perinephric stranding is similar to previous. Correlation with clinical find ings and urinalysis will be required. 7. Cardiomegaly and small hiatal hernia. 8. Moderate constipation. 9. Additional findings as above.. ACT 112: Negative or not required by law. Electronically signed by: Juan Antonio Gibbs M.D. 05/24/2020 11:58 AM
[2020-05-24 12:00] LABS: Albumin Globulin Ratio 0.4 (0.9-2); Alkaline Phosphatase 123 U/L (45-117); Bilirubin,Total 0.9 mg/dl (0.2-1); Globulin 6.1 gm/dl (2.5-4.0); Total Protein 8.4 gm/dl (6.4-8.2); Troponin I < 0.015 ng/ml (0-0.045)
[2020-05-24] MEDS ORDERED: PANTOprazole 40 MG in DEXTROSE 5% 100 ML IV ONE (12:30)
[2020-05-24 13:11] LABS: Gastric Occult Blood Negative (Negative); pH Gastric Fluid 3
--- NOTE | 2020-05-24 14:13 | Emergency Department Note ---
Impression & Plan Partial small bowel obstruction, Anemia, Nausea & vomiting, Chronic renal insufficiency ED Provider Note INFORMANT: Patient ED PROVIDER(S): Kalpesh Posada MD CHIEF COMPLAINT: Vomiting PLAN: Disposition: Admitted Condition: Good MEDICAL DECISION MAKING: Patient presented to the emergency department because of vomiting. The present was concerned that he may have a GI bleed and vomited blood. The patient was nauseated, had an episode of vomiting in the emergency department and this was tested. It appeared to be clear, almost bilious. This was negative for Gastroccult testing. He had blood work obtained. The patient was found to have a mild anemia on CBC. His hemoglobin has dropped from 12-11. He has baseline chronic renal insufficiency. Troponin and LFTs were negative. The patient underwent CT imaging which did show findings concerning for a possible early bowel obstruction. The patient had an ECG performed which showed a normal sinus rhythm at 76. Given the findings further management in the hospital was felt to be most appropriate. Given his history of suspected vomiting blood and his history of varices the patient was started on Pepcid and a Protonix drip initially. The patient was also given Zofran for his nausea and vomiting. Triage Nursing notes reviewed and agree them. Prior records reviewed. Patient has baseline anemia. Prior visit outlined. Vital Signs: reviewed and remarkable for no significant abnormalities Differential diagnosis: Etiologies such as gastroenteritis, food borne illness, infections, appendicitis, diverticulitis, inflammatory bowel disease, GI bleed, biliary pathology, as well as others were entertained. Diagnostics interpreted by me: ECG: Rate: 76 Rhythm:Normal sinus [place]:Normal QRS:Normal ST segements:No elevation or depression Other:No PACs or PVCs Cardiac Monitoring: Cardiac monitoring ordered by me: The patient was placed on continuous cardiac monitoring and observed. It revealed a normal sinus rhythm at 70 beats per minute without ectopy or evidence of dysrhythmia. Imaging studies: CT scan of the abdomen pelvis IMPRESSION: 1. Question an early/developing or partial small bowel obstruction as above with a transition point seen in the central pelvis. 2. No intraperitoneal free air is identified and there is no abdominal ascites. 3. No focally thick walled bowel loops are identified. There is no pneumatosis intestinalis or portal venous gas. 4. Cirrhotic liver morphology. 5. Cholelithiasis. 6. Nonspecific bilateral perinephric stranding is similar to previous. Correlation with clinical findings and urinalysis will be required. 7. Cardiomegaly and small hiatal hernia. 8. Moderate constipation. 9. Additional findings as above.. Consultation(s): [facility], Dr. Asif HPI: The patient is a 65 year old male who presents to the Emergency Room with complaints of vomiting. This started over the last few days and is getting worse. At the present he stated he vomited dark material. The present was concerned about possible GI bleed. The patient also notes the following associated symptoms, mild upper abdominal pain. Patient also notes some dark stool tTe patient has found no relieving factors. Current pain is rated as 3/10. Patient has slurred speech but states this is been present for many months. His last visit to the emergency department he did have a head CT performed and there was no acute process noted. Pt denies LOC, headache, fevers, chills, diaphoresis, visual changes, neck pain, chest pain, breathing difficulties, back pain, hematochezia, urinary symptoms, numbness, weakness, lymphadenopathy, rash, or other complaints. ROS: See above HPI for pertinent positives & negatives. A total of 10 systems reviewed and were otherwise negative. PAST MEDICAL HISTORY:See Below, esophageal varices, GERD, hepatitis C PAST SURGICAL HISTORY:See Below, FAMILY HISTORY:See Below SOCIAL HISTORY:See Below, incarcerated HOME MEDICATIONS:See Below ALLERGIES:See Below VITALS:See Below PHYSICAL EXAMINATION: GENERAL: Awake, alert, mildly uncomfortable appearing, in no distress HENT: Normocephalic, atraumatic. Oropharynx unremarkable. EYES: Normal conjunctiva. Sclera non-icteric. NECK: Inspection normal. Non-tender. Supple. No nuchal rigidity. FROM. No masses. RESPIRATORY: Clear to auscultation. No wheezes. No rales. Normal respiratory effort. CARDIAC: Normal rate. Normal rhythm. No murmurs. No rubs. Extremities warm and well perfused. Pulses equal. No JVD. GI: Soft, non-distended. Very minimal epigastric tenderness to palpation. No rebound or guarding. No masses. RECTAL: Deferred. MUSCULOSKELETAL: Atraumatic. Chest examination reveals no tenderness. The back is symmetrical on inspection without obvious abnormality. There is no CVA tenderness to palpation. No joint edema. LOWER EXTREMITIES: Calves are equal size bilaterally and non-tender. No edema. No discoloration. NEURO: Normal sensorium. No sensory or motor deficits noted. SKIN: No rash or jaundice noted. Kalpesh Posada MD Past Med/Surg History Medical History (Updated 05/24/20 @ 16:01 by Kalpesh Posada MD) Acute hepatic encephalopathy Allergic rhinitis Anemia, unspecified Chronic kidney disease, unspecified Esophageal varices without bleeding Flatulence GERD (gastroesophageal reflux disease) HCV (hepatitis C virus) Treated Hyperlipidemia Hypertension Liver cirrhosis Low back pain Microscopic hematuria Onychomycosis Proteinuria Pruritus, unspecified Type 2 diabetes mellitus Umbilical hernia without obstruction or gangrene Social History Smoking Status: Former smoker Hx Alcohol Use: No Hx Substance Use: No Preferred Language: Polish Communication Ability: Effective Sports Broadcaster Required: No Beliefs That Will Affect Care: None Current Living Situation: Other Feels Safe at Home: Yes Assistive Devices: None Allergies Allergies Allergy/AdvReac Type Severity Reaction Status Date / Time No Known Allergies Allergy Unverified 05/24/20 12:12 Home Meds Home Medications Medication Instructions Recorded Confirmed Novolin R Flexpen 0 unit SUBCUT UD 04/28/20 04/28/20 Vitron-C 1 tab PO QAM 04/28/20 05/24/20 epoetin amy-epbx 10,000 unit SUBCUT WK 04/28/20 05/24/20 nortriptyline 25 mg PO HS 04/28/20 05/24/20 omeprazole 20 mg PO QAM 04/28/20 05/24/20 aspirin [Aspir-81] 81 mg PO QAM 05/24/20 05/24/20 bumetanide 2 mg PO QAM 05/24/20 05/24/20 insulin NPH and regular human 55 unit SUBCUT BID 05/24/20 05/24/20 [Novolin 70-30 FlexPen U-100] rifaximin [Xifaxan] 550 mg PO BID 05/24/20 05/24/20 spironolactone 25 mg PO BID 05/24/20 05/24/20 Previous Rx's Medication Instructions Recorded amlodipine 10 mg PO DAILY #30 tab 04/30/20 lactulose 30 ml PO QID #1200 ml 04/30/20 nadolol 40 mg PO BID #60 tab 04/30/20 Results & Data (ED) Vital Signs Vital Signs - 24 hr 05/24/20 10:36 05/24/20 11:45 05/24/20 11:57 Temperature 36.9 C Temperature Source Oral Pulse Rate 82 88 Pulse Rate from SpO2 Sensor 88 Pulse Rhythm Regular Pulse Strength Normal Respiratory Rate 18 20 Respiratory Effort / Characteristics Non-Labored Spontaneous Respiratory Depth Normal Respiratory Pattern Regular Blood Pressure 155/96 H 186/89 H Blood Pressure Mean 115 113 Blood Pressure Position Sitting Pulse Oximetry 100 100 100 Oxygen Delivery Method Room Air Room Air Sepsis Recent Fever Within 48 Hours No Sepsis New/Unexplained Change in Mental Status No Sepsis Action Taken by Nursing No Action Required 05/24/20 12:00 05/24/20 12:30 05/24/20 13:00 Temperature Temperature Source Pulse Rate 85 80 87 Pulse Rate from SpO2 Sensor 85 80 85 Pulse Rhythm Pulse Strength Respiratory Rate 14 14 12 Respiratory Effort / Characteristics Respiratory Depth Respiratory Pattern Blood Pressure 177/95 H 181/99 H 182/104 H Blood Pressure Mean 125 133 147 Blood Pressure Position Pulse Oximetry 100 100 100 Oxygen Delivery Method Sepsis Recent Fever Within 48 Hours Sepsis New/Unexplained Change in Mental Status Sepsis Action Taken by Nursing 05/24/20 13:30 05/24/20 14:00 05/24/20 14:30 Temperature Temperature Source Pulse Rate 81 83 86 Pulse Rate from SpO2 Sensor 82 84 87 Pulse Rhythm Pulse Strength Respiratory Rate 12 12 15 Respiratory Effort / Characteristics Respiratory Depth Respiratory Pattern Blood Pressure 180/93 H 172/95 H 166/101 H Blood Pressure Mean 128 138 129 Blood Pressure Position Pulse Oximetry 100 100 100 Oxygen Delivery Method Sepsis Recent Fever Within 48 Hours Sepsis New/Unexplained Change in Mental Status Sepsis Action Taken by Nursing 05/24/20 15:00 Temperature Temperature Source Pulse Rate 84 Pulse Rate from SpO2 Sensor 84 Pulse Rhythm Pulse Strength Respiratory Rate 16 Respiratory Effort / Characteristics Respiratory Depth Respiratory Pattern Blood Pressure 179/96 H Blood Pressure Mean 128 Blood Pressure Position Pulse Oximetry 100 Oxygen Delivery Method Sepsis Recent Fever Within 48 Hours Sepsis New/Unexplained Change in Mental Status Sepsis Action Taken by Nursing Laboratory Data Result diagrams: 05/24/20 11:02 05/24/20 11:02 Lab Results 05/24/20 05/24/20 05/24/20 Range/Units 11:02 11:02 11:02 WBC 5.77 (4.8-10.8) K/uL RBC 3.44 L (4.7-6.1) M/uL Hgb 11.3 L (14.0-18.0) g/dL Hct 31.8 L (42-52) % MCV 92.4 (80-100) fL MCH 32.8 (25-34) pg MCHC 35.5 (32-36) g/dL RDW Std Deviation 45.2 (36.4-46.3) fL RDW Coeff of Kianna 13.4 (11.5-14.5) % Plt Count 152 (130-400) K/uL MPV 10.4 (7.4-10.4) fL Immature Gran % (Auto) 0.2 % Neut % (Auto) 52.1 % Lymph % (Auto) 31.0 % [place] % (Auto) 13.9 % Eos % (Auto) 2.6 % Baso % (Auto) 0.2 % Neut # (Auto) 3.01 (1.4-6.5) K/uL Lymph # (Auto) 1.79 (1.2-3.4) K/uL [place] # (Auto) 0.80 H (0.11-0.59) K/uL Eos # (Auto) 0.15 (0-0.5) K/uL Baso # (Auto) 0.01 (0-0.2) K/uL Immature Gran # (Auto) 0.01 (0.00-0.02) K/uL PT 12.4 H (9.0-12.0) Seconds INR 1.2 H (0.9-1.1) APTT 31.4 H (21.0-31.0) Seconds PTT Ratio 1.1 Sodium 144 (136-145) mmol/L Potassium 5.6 H (3.5-5.1) mmol/L Chloride 115 H (98-107) mmol/L Carbon Dioxide 21 (21-32) mmol/L Anion Gap 8.0 (3-11) BUN 41 H (7-18) mg/dl Creatinine 4.47 H (0.6-1.4) mg/dl Est Cr Clr Drug Dosing 19.4 ml/min Est GFR ( Amer) 14.8 Est GFR (Non-Af Amer) 12.8 BUN/Creatinine Ratio 9.2 L (10-20) Glucose 116 H (70-99) mg/dl Calcium 9.1 (8.5-10.1) mg/dl Total Bilirubin 0.9 (0.2-1) mg/dl AST 28 (15-37) U/L ALT 17 (12-78) U/L Alkaline Phosphatase 123 H (45-117) U/L Troponin I < 0.015 (0-0.045) ng/ml Total Protein 8.4 H (6.4-8.2) gm/dl Albumin 2.3 L (3.4-5.0) gm/dl Globulin 6.1 H (2.5-4.0) gm/dl Albumin/Globulin Ratio 0.4 L (0.9-2) Gastric Fluid pH Gastric Occult Blood (Negative) Blood Type Antibody Screen 05/24/20 05/24/20 Range/Units 11:06 12:15 WBC (4.8-10.8) K/uL RBC (4.7-6.1) M/uL Hgb (14.0-18.0) g/dL Hct (42-52) % MCV (80-100) fL MCH (25-34) pg MCHC (32-36) g/dL RDW Std Deviation (36.4-46.3) fL RDW Coeff of Kianna (11.5-14.5) % Plt Count (130-400) K/uL MPV (7.4-10.4) fL Immature Gran % (Auto) % Neut % (Auto) % Lymph % (Auto) % [place] % (Auto) % Eos % (Auto) % Baso % (Auto) % Neut # (Auto) (1.4-6.5) K/uL Lymph # (Auto) (1.2-3.4) K/uL [place] # (Auto) (0.11-0.59) K/uL Eos # (Auto) (0-0.5) K/uL Baso # (Auto) (0-0.2) K/uL Immature Gran # (Auto) (0.00-0.02) K/uL PT (9.0-12.0) Seconds INR (0.9-1.1) APTT (21.0-31.0) Seconds PTT Ratio Sodium (136-145) mmol/L Potassium (3.5-5.1) mmol/L Chloride (98-107) mmol/L Carbon Dioxide (21-32) mmol/L Anion Gap (3-11) BUN (7-18) mg/dl Creatinine (0.6-1.4) mg/dl Est Cr Clr Drug Dosing ml/min Est GFR ( Amer) Est GFR (Non-Af Amer) BUN/Creatinine Ratio (10-20) Glucose (70-99) mg/dl Calcium (8.5-10.1) mg/dl Total Bilirubin (0.2-1) mg/dl AST (15-37) U/L ALT (12-78) U/L Alkaline Phosphatase (45-117) U/L Troponin I (0-0.045) ng/ml Total Protein (6.4-8.2) gm/dl Albumin (3.4-5.0) gm/dl Globulin (2.5-4.0) gm/dl Albumin/Globulin Ratio (0.9-2) Gastric Fluid pH 3 Gastric Occult Blood Negative (Negative) Blood Type O Positive Antibody Screen NEGATIVE Administered Medications Discontinued Medications Sodium Chloride (Nss) 500 mls @ 999 mls/hr IV .Q31M [facility] Stop: 05/24/20 11:15 Last Infusion: 05/24/20 13:09 Dose: 0 mls/hr Documented by: [id number] Admin: 05/24/20 11:56 Dose: 500 mls/hr Documented by: [id number] Famotidine (Pepcid 20mg Iv Push) 20 mg in 5 mls @ 2.5 mls/min IV NOW STA Stop: 05/24/20 10:43 Last Admin: 05/24/20 11:55 Dose: 2.5 mls/min Documented by: [id number] Pantoprazole Sodium 80 mg/ (Dextrose) 100 mls @ 400 mls/hr IV NOW ONE Stop: 05/24/20 10:56 Last Infusion: 05/24/20 13:16 Dose: 0 mls/hr Documented by: [id number] Admin: 05/24/20 11:55 Dose: 400 mls/hr Documented by: [id number] Pantoprazole Sodium 40 mg/ (Dextrose) 100 mls @ 20 mls/hr IV Q5H [facility] Stop: 05/24/20 15:44 Last Admin: 05/24/20 14:14 Dose: 8 mg/hr, 20 mls/hr Documented by: [id number] Pantoprazole Sodium 40 mg/ (Dextrose) 100 mls @ 400 mls/hr IV NOW ONE Stop: 05/24/20 12:44 Last Infusion: 05/24/20 14:14 Dose: 0 mls/hr Documented by: [id number] Admin: 05/24/20 13:18 Dose: 400 mls/hr Documented by: [id number] Ondansetron HCl (Ondansetron Inj 2 Mg/Ml 2 Ml Vial) 4 mg IV NOW STA Stop: 05/24/20 11:58 Last Admin: 05/24/20 12:30 Dose: 4 mg Documented by: [id number] Discharge Plan Visit Data Chief Complaint: GI Assessment ED Provider: Kalpesh Posada Discharge Problem: Partial small bowel obstruction, Anemia, Nausea & vomiting, Chronic renal insufficiency Forms Stand Alone Forms: [facility] Prescriptions Prescriptions: No Action nortriptyline 25 mg Capsule 25 mg PO HS RF: 0 omeprazole 20 mg Capsule,Delayed Release(Dr/Ec) 20 mg PO QAM RF: 0 Novolin R Flexpen 100 unit/mL (3 mL) Insulin Pen 0 unit SUBCUT UD RF: 0 Vitron-C 65 mg iron- 125 mg Tablet,Delayed Release (Dr/Ec) 1 tab PO QAM RF: 0 epoetin amy-epbx 10,000 unit/mL Solution 10,000 unit subcut WK RF: 0 nadolol 40 mg Tablet 40 mg PO BID Qty: 60 RF: 0 amlodipine 10 mg tablet 10 mg PO DAILY Qty: 30 RF: 0 lactulose 20 gram/30 mL Solution 30 ml PO QID Qty: 1200 RF: 0 bumetanide 2 mg Tablet 2 mg PO QAM RF: 0 aspirin [Aspir-81] 81 mg Tablet,Delayed Release (Dr/Ec) 81 mg PO QAM RF: 0 spironolactone 25 mg Tablet 25 mg PO BID RF: 0 Novolin 70-30 FlexPen U-100 100 unit/mL (70-30) Insulin Pen 55 unit SUBCUT BID RF: 0 Xifaxan 550 mg Tablet 550 mg PO BID RF: 0
--- NOTE | 2020-05-24 16:36 | History & Physical Report ---
Date of Service May 24, 2020 Assessment & Plan (1) Partial small bowel obstruction: diagnosed on CT scan today, patient reports having a BM today, has stool in colon he vomited once in ED, small amount, negative for blood on testing will place on NSS, allow clear liquids for now, hesitant to place NGT with history of esophageal varices check KUB in the morning has a hernia that is reducible monitor for bowel function, if he is passing stools then give clears again tomorrow if okay with GI (2) Nausea & vomiting: likely etiology is partial SBO zofran PRN hesitant to place NGT due to history of varices (3) Hyperkalemia: elevated at 5.6, no treatment thus far will give calcium gluconate give Bumex 1mg IV now and run NSS at 80cc/hr to both dilute and remove K from system Kayexalate unlikely to work with current SBO repeat at 9pm to make sure it is not rising place on med tele to monitor for arrhythmia (4) Chronic renal insufficiency: Cr is 4.5, it has steadily risen over the past few months last time he was admitted was April, at that time he was transferred to [place] for kidney biopsy unsure of results will consult [facility] nephrology for their recommendations will give a dose of Bumex IV now due to hyperkalemia and need to get rid of some potassium as not likely to respond to Kayexalate repeat BMP in the morning (5) Esophageal varices without bleeding: history of varices reportedly had dark emesis at [facility]? he vomited once here, small amount, no blood on testing consult GI for their recommendations continue beta alisha would hold on NGT due to varices Protonix drip, Octreotide drip ordered Hb is stable at 11.3, repeat in the morning (6) Type 2 diabetes mellitus: place on Lantus 10 units BID and Novolog SS since intake will be low with NPO after midnight (7) Umbilical hernia without obstruction or gangrene: (8) GERD (gastroesophageal reflux disease): (9) Liver cirrhosis: on rifaximin and lactulose check ammonia in the morning History of Present Illness Chief Complaint: I'm not sure why I am here Primary Care Provider: [facility] Irais 65 yo male with history of cirrhosis with varices, worsening renal function with CKD stage IV/V, DM type II presents to the ED with a report of vomiting coffee grounds and dark stools. The patient is a very poor historian, he cannot tell me why he was sent here to the ED. He says he might have vomited but he denies any vomiting now. He keeps asking for a drink of water. He says he has some mild abdominal pain. He thinks he moved his bowels this morning but he cannot remember. He denies any fever/chills, he denies any chest pain or dyspnea. In the ED he was hypertensive. WBC 5k, Hb 11.3, plts 152. INR 1.2. K high at 5.6, BUN [address] of the abdomen/pelvis with possible early incomplete small bowel obstruction. No treatment given, asked for admission. Reviewed prior admission, he was admitted for worsening renal function. He was sent for renal biopsy at [facility]. Do not have records of that biopsy, unsure of reason for his worsening renal function. Allergies Allergy/AdvReac Type Severity Reaction Status Date / Time No Known Allergies Allergy Unverified 05/24/20 12:12 Home Medications Home Medications Medication Instructions Recorded Confirmed Type Novolin R Flexpen 0 unit SUBCUT UD 04/28/20 04/28/20 History Vitron-C 1 tab PO QAM 04/28/20 05/24/20 History epoetin amy-epbx 10,000 unit SUBCUT WK 04/28/20 05/24/20 History nortriptyline 25 mg PO HS 04/28/20 05/24/20 History omeprazole 20 mg PO QAM 04/28/20 05/24/20 History amlodipine 10 mg PO DAILY #30 tab 04/30/20 05/24/20 Rx lactulose 30 ml PO QID #1200 ml 04/30/20 05/24/20 Rx nadolol 40 mg PO BID #60 tab 04/30/20 05/24/20 Rx aspirin [Aspir-81] 81 mg PO QAM 05/24/20 05/24/20 History bumetanide 2 mg PO QAM 05/24/20 05/24/20 History insulin NPH and regular human 55 unit SUBCUT BID 05/24/20 05/24/20 History [Novolin 70-30 FlexPen U-100] rifaximin [Xifaxan] 550 mg PO BID 05/24/20 05/24/20 History spironolactone 25 mg PO BID 05/24/20 05/24/20 History Past Med/Surg History Medical History Acute hepatic encephalopathy Allergic rhinitis Anemia, unspecified Chronic kidney disease, unspecified Esophageal varices without bleeding Flatulence GERD (gastroesophageal reflux disease) HCV (hepatitis C virus) Treated Hyperlipidemia Hypertension Liver cirrhosis Low back pain Microscopic hematuria Onychomycosis Proteinuria Pruritus, unspecified Type 2 diabetes mellitus Umbilical hernia without obstruction or gangrene Social History Smoking Status: Former smoker Do You Dip or Chew Tobacco: No; Hx Alcohol Use: Yes Alcohol type: beer and hard liquor Hx Substance Use: Yes Preferred Language: Ivorian Communication Ability: Effective Door Frame 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 Machine Required: No Beliefs That Will Affect Care: None Current Living Situation: Other Current Living Situation Comment: Prisoner at [facility] Other Information That Helps Us Care for You: No Feels Safe at Home: Yes Assistive Devices: Walker and Wheelchair Assistive Devices Comment: Uses a wheelchair at [facility] Review of Systems Review of Systems: All systems reviewed & are unremarkable except as noted in HPI & below (difficult to get full ROS, patient is poor historian) Physical Exam Constitutional: well developed, + obese, comfortable and + lethargic; no acute distress Eyes: PERRL, conjunctivae normal, anicteric sclerae ENMT: external ear and nose normal, oropharynx normal Neck: trachea midline, no thyromegaly Respiratory: normal respiratory effort, lungs clear to auscultation (diminished in bases) Cardiovascular: Rate/Rhythm: regular rate and regular rhythm Heart Sounds: normal S1 and normal S2; no murmur Vessels: no JVD Extremities: normal capillary refill and + edema (trace in legs bilaterally) Gastrointestinal (Abdomen): Inspection/Auscultation: + abdomen distended and normal bowel sounds Percussion/Palpation: + abdomen tender, + hernia (umbilical), + ascites and + abdomen firm; no guarding and abdomen not rigid Musculoskeletal: Head/Neck/Chest: normocephalic, head atraumatic and neck supple Extremities: extremities normal to inspection and + abnormal strength (generalized weakness) Skin: no rashes, warm and dry Neurologic: patellar DTR's 2+ bilat, sensation intact and PERRL, EOMI, accommodation nl, no face palsy, no dysarthria Psychiatric: A+Ox3, euthymic affect Lymphatic: no cervical or axillary lymphadenopathy Results & Data Results & Data ([facility]) Vital Signs (Past 12 Hours) Vital Signs Temp Pulse Resp BP Pulse Ox 05/24/20 15:00 84 16 179/96 H 100 05/24/20 14:30 86 15 166/101 H 100 05/24/20 14:00 83 12 172/95 H 100 05/24/20 13:30 81 12 180/93 H 100 05/24/20 13:00 87 12 182/104 H 100 05/24/20 12:30 80 14 181/99 H 100 05/24/20 12:00 85 14 177/95 H 100 05/24/20 11:57 100 05/24/20 11:45 88 20 186/89 H 100 05/24/20 10:36 36.9 C 82 18 155/96 H 100 Laboratory Results Laboratory Results - last 24 hr 05/24/20 05/24/20 05/24/20 11:02 11:02 11:02 WBC 5.77 RBC 3.44 L Hgb 11.3 L Hct 31.8 L MCV 92.4 MCH 32.8 MCHC 35.5 RDW Std Deviation 45.2 RDW Coeff of Kianna 13.4 Plt Count 152 MPV 10.4 Immature Gran % (Auto) 0.2 Neut % (Auto) 52.1 Lymph % (Auto) 31.0 Riley % (Auto) 13.9 Eos % (Auto) 2.6 Baso % (Auto) 0.2 Neut # (Auto) 3.01 Lymph # (Auto) 1.79 Riley # (Auto) 0.80 H Eos # (Auto) 0.15 Baso # (Auto) 0.01 Immature Gran # (Auto) 0.01 PT 12.4 H INR 1.2 H APTT 31.4 H PTT Ratio 1.1 Sodium 144 Potassium 5.6 H Chloride 115 H Carbon Dioxide 21 Anion Gap 8.0 BUN 41 H Creatinine 4.47 H Est Cr Clr Drug Dosing 19.4 Est GFR ( Amer) 14.8 Est GFR (Non-Af Amer) 12.8 BUN/Creatinine Ratio 9.2 L Glucose 116 H Calcium 9.1 Total Bilirubin 0.9 AST 28 ALT 17 Alkaline Phosphatase 123 H Troponin I < 0.015 Total Protein 8.4 H Albumin 2.3 L Globulin 6.1 H Albumin/Globulin Ratio 0.4 L Gastric Fluid pH Gastric Occult Blood Blood Type Antibody Screen 05/24/20 05/24/20 11:06 12:15 WBC RBC Hgb Hct MCV MCH MCHC RDW Std Deviation RDW Coeff of Kianna Plt Count MPV Immature Gran % (Auto) Neut % (Auto) Lymph % (Auto) Riley % (Auto) Eos % (Auto) Baso % (Auto) Neut # (Auto) Lymph # (Auto) Riley # (Auto) Eos # (Auto) Baso # (Auto) Immature Gran # (Auto) PT INR APTT PTT Ratio Sodium Potassium Chloride Carbon Dioxide Anion Gap BUN Creatinine Est Cr Clr Drug Dosing Est GFR ( Amer) Est GFR (Non-Af Amer) BUN/Creatinine Ratio Glucose Calcium Total Bilirubin AST ALT Alkaline Phosphatase Troponin I Total Protein Albumin Globulin Albumin/Globulin Ratio Gastric Fluid pH 3 Gastric Occult Blood Negative Blood Type O Positive Antibody Screen NEGATIVE Diagnostic Findings CT abdomen/pelvis IMPRESSION: 1. Question an early/developing or partial small bowel obstruction as above with a transition point seen in the central pelvis. 2. No intraperitoneal free air is identified and there is no abdominal ascites. 3. No focally thick walled bowel loops are identified. There is no pneumatosis intestinalis or portal venous gas. 4. Cirrhotic liver morphology. 5. Cholelithiasis. 6. Nonspecific bilateral perinephric stranding is similar to previous. Correlation with clinical findings and urinalysis will be required. 7. Cardiomegaly and small hiatal hernia. 8. Moderate constipation. Code Status & VTE Plan VTE Prophylaxis Plan VTE Prophylaxis will be ordered: Yes PG Care Time/CCT Total # of Minutes Spent Total Time Spent with Patient: Total time spent is greater than 50% in coordination of care (as documented) at patient's floor/unit and/or counseling patient: Coding Level of Care Code 72540 Initial Inpt Care Lvl 3 Diagnoses Partial small bowel obstruction K56.600 Nausea & vomiting R11.2 Hyperkalemia E87.5 Chronic renal insufficiency N18.9 Esophageal varices without bleeding I85.00 Type 2 diabetes mellitus E11.9 Umbilical hernia without obstruction or gangrene K42.9 GERD (gastroesophageal reflux disease) K21.9 Liver cirrhosis K74.60 Ascites presence: without ascites Hepatic cirrhosis type: unspecified hepatic cirrhosis (1) Liver cirrhosis Ascites presence: without ascites Hepatic cirrhosis type: unspecified hepatic cirrhosis Qualified Code(s): K74.60 - Unspecified cirrhosis of liver
[2020-05-24] MEDS ORDERED: ACETAMINOPHEN 325 MG TAB PO PRN (18:35)
[2020-05-24] MEDS ORDERED: ONDANSETRON INJ 2 MG/ML 2 ML VIAL IV PRN (18:35)
[2020-05-24] MEDS ORDERED: CALCIUM GLUCONATE 10% 1,000 MG in SODIUM CHLORIDE 0.9% 50 ML IV ONE (19:00)
[2020-05-24] MEDS ORDERED: BUMETANIDE 1 MG in SYRINGE 0 ML IV ONE (19:00)
[2020-05-24] MEDS: CARBOHYDRATES FOR HYPOGLYCEMIA PO PRN ×3 (19:49→20:19)
[2020-05-24] MEDS ORDERED: DEXTROSE 50% 50 ML SYRINGE IV PRN (20:00)
[2020-05-24] MEDS ORDERED: GLUCOSE 10 TABS/TUBE PO PRN (20:00)
[2020-05-24] MEDS ORDERED: GLUCAGON FOR INJ 1 MG VIAL IM PRN (20:00)
[2020-05-24] MEDS ORDERED: GLUCOSE 40% GEL 15 GM TUBE PO PRN (20:00)
[2020-05-24] MEDS: SODIUM CHLORIDE 0.9% 1000ML 1,000 ML IV SCH (20:16)
[2020-05-24] MEDS: LACTULOSE SYRUP 20 GM/30 ML UDC PO SCH ×2 (20:35→21:12)
[2020-05-24] MEDS: OCTREOTIDE ACETATE 500 MCG in 0.9 % SODIUM CHLORIDE 100 ML IV SCH (20:38)
[2020-05-24] MEDS: INSULIN ASPART 100 UNITS/ML 3 ML PEN SC SCH (20:41)
[2020-05-24] MEDS: nadoloL 40 MG TAB PO SCH (20:42)
[2020-05-24] MEDS: NORTRIPTYLINE HCL 25 MG CAP PO SCH (20:43)
[2020-05-24] MEDS: rifAXIMin 550 MG TABLET PO SCH (20:43)
[2020-05-24] MEDS: INSULIN GLARGINE SOLOSTAR 100 UNITS/ML 3 ML PEN SC SCH (21:11)
[2020-05-24] MEDS: PANTOprazole 40 MG in SYRINGE 0 ML IV SCH (21:27)
[2020-05-24 21:46] LABS: BUN Creatinine Ratio 10.1 (10-20); Calcium 9.5 mg/dl (8.5-10.1); Creatinine Clr Calc Pharmacy 20.4 ml/min; Est GFR (African American) 15.8; Est GFR (Non-African American) 13.6; Potassium 5.3 mmol/L (3.5-5.1)
--- NOTE | 2020-05-24 22:57 | Electrocardiogram Report ---
Test Reason : Blood Pressure : / mmHG Vent. Rate : 076 BPM Atrial Rate : 076 BPM P-R Int : 132 ms QRS Dur : 084 ms QT Int : 394 ms P-R-T Axes : 047 017 032 degrees QTc Int : 443 ms Normal sinus rhythm Normal ECG When compared with ECG of 28-APR-2020 11:08, T wave inversion no longer evident in Inferior leads T wave inversion no longer evident in Anterolateral leads Confirmed by Bassam Correa ([id number]) on 05/24/2020 10:56:45 PM Referred By: Confirmed By:Bassam Correa
[2020-05-25] MEDS: OCTREOTIDE ACETATE 500 MCG in 0.9 % SODIUM CHLORIDE 100 ML IV SCH (04:53)
[2020-05-25] MEDS ORDERED: STAT IV STA (07:29)
[2020-05-25] MEDS ORDERED: SODIUM BICARBONATE 8.4% 75 MEQ in SODIUM CHLORIDE 0.45 % 1,000 ML IV SCH (07:45)
[2020-05-25] MEDS: PANTOprazole 40 MG in SYRINGE 0 ML IV SCH ×2 (08:21→20:45)
[2020-05-25] MEDS: rifAXIMin 550 MG TABLET PO SCH ×2 (08:25→20:28)
[2020-05-25] MEDS: amLODIPine BESYLATE 5 MG TAB PO SCH (08:26)
[2020-05-25] MEDS: LACTULOSE SYRUP 20 GM/30 ML UDC PO SCH ×5 (08:26→19:56)
[2020-05-25] MEDS: nadoloL 40 MG TAB PO SCH ×2 (08:27→20:28)
[2020-05-25] MEDS: INSULIN ASPART 100 UNITS/ML 3 ML PEN SC SCH ×4 (08:30→20:38)
[2020-05-25] MEDS: INSULIN GLARGINE SOLOSTAR 100 UNITS/ML 3 ML PEN SC SCH ×2 (08:31→20:29)
[2020-05-25 08:55] LABS: Hematocrit (blood only) 31.8 % (42-52); Hemoglobin 10.6 g/dL (14.0-18.0); Mean Corpuscular Hemoglobin 31.3 pg (25-34); Mean Corpuscular Hgb Conc 33.3 g/dL (32-36); Mean Corpuscular Volume 93.8 fL (80-100); RDW Coefficient of Variation 13.6 % (11.5-14.5); RDW Standard Deviation 46.6 fL (36.4-46.3); Red Blood Count 3.39 M/uL (4.7-6.1); White Blood Count 5.23 K/uL (4.8-10.8)
[2020-05-25 09:15] LABS: Albumin Level 2.1 gm/dl (3.4-5.0); BUN Creatinine Ratio 9.6 (10-20); Calcium 9.2 mg/dl (8.5-10.1); Creatinine Clr Calc Pharmacy 19.2 ml/min; Est GFR (African American) 15.6; Est GFR (Non-African American) 13.4; Potassium 5.5 mmol/L (3.5-5.1)
[2020-05-25 09:19] LABS: Albumin Globulin Ratio 0.4 (0.9-2); Bilirubin,Total 0.9 mg/dl (0.2-1); Globulin 5.3 gm/dl (2.5-4.0); Total Protein 7.4 gm/dl (6.4-8.2)
[2020-05-25] MEDS: SODIUM CHLORIDE 0.9% 1000ML 1,000 ML IV SCH (09:22)
[2020-05-25] MEDS ORDERED: bisacodyL 10 MG SUPP PR STA (09:31)
[2020-05-25] MEDS ORDERED: POLYETHYLENE (MIRALAX) 17 GM PACK PO SCH (09:45)
[2020-05-25 09:57] LABS: Platelet Count 117 K/uL (130-400)
[2020-05-25 09:58] LABS: Platelet Estimate Decreased (Normal)
[2020-05-25] MEDS ORDERED: SODIUM POLYSTYRENE SULFONATE 15G/60ML SUSP PO STA ×2 (12:41→18:37)
--- NOTE | 2020-05-25 12:46 | Nephrology Consultation ---
Date of Consultation May 25, 2020 Assessment & Plan (1) Acute kidney injury: Chicho admitted with partial small bowel obstruction after he presented with nausea and vomiting for few days. Renal function has been rapidly worsening over last 6 months, starting December 2018 when creatinine was 1.8 and over last more than a month creatinine has been staying around 4.4-4.5. Has high- grade proteinuria and microscopic hematuria, previous noninvasive workup including paraproteinemia workup, serology was unremarkable. No post renal obstruction. Did not have a renal biopsy. Currently creatinine staying around 34.3-4.5 with significant electrolyte abnormality including hyperkalemia and metabolic acidosis as well as anemia. It is possible that he is close to ESRD at this point. Urine output seems to be low although blood pressure has been running high, no significant concern for volume overload at this time. -- Kayexalate 30 g x1 dose now, recheck potassium in 3 hours -- start on sodium bicarbonate 650 mg twice a day -- monitor intake and output closely -- high likelihood of needing renal replacement therapy during this admission, if electrolyte abnormality does not resolve and urine output remains low -- would like to wait at least until Wednesday so that we can have vascular surgery on board and have a tunneled dialysis catheter Wednesday morning and avoid a temporary catheter Will follow Thank you for allowing me to participate in your patient's care. It was a pleasure to see Chicho (2) Hyperkalemia: (3) Chronic renal insufficiency: (4) Proteinuria: (5) Anemia: (6) Partial small bowel obstruction: (7) Metabolic acidosis: History of Present Illness Reason for Consultation: Acute kidney injury, hyperkalemia with advanced CKD. Attending Physician: Eduardo Hess DO History of Present Illness Mr. Chicho Moreira is a 65-year-old AA PMH of hepatitis C cirrhosis, HTN, DM, CKD and recent REDD admitted with partial small-bowel obstruction. Nephrology consult was requested to manage acute kidney injury and electrolyte abnormality. Electronic medical records are reviewed in detail during patient's visit. 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 Chicho was brought to the ER at [facility] yesterday for evaluation of Nausea and vomiting for few days. On admission CT abdomen pelvis showed partial small bowel obstruction and she he was treated with IV fluid and kept NPO. Clinically he started to improve and this morning he had a bowel movement and now was started on clear liquid. On admission he was found to have REDD with creatinine 4.5 which is slightly improved to 4.3 however he has significant electrolyte abnormality including hyperkalemia and metabolic acidosis. His urine output has been relatively low. Blood pressure has been elevated. In fact, his REDD episode was initially found during last admission several weeks ago when he was admitted with fatigue, lethargy and change in mental status. Prior record review showed his renal function has been progressively worsening starting December 2019 with rising serum creatinine. Creatinine was 1.82 mg/dL in December. It was 2.9 mg/dL in February and 3.45 mg/dL in March. During last admission his creatinine was 4.6 mg/dL. UA notable for 3+ protein, 1+ glucose, 2+ blood. Microscopy negative for WBC's, 5-10 RBC. S Serum albumin 2.2. Renal artery duplex negative for stenosis. CT abdomen/pelvis demonstrated normal appearing kidneys without evidence of obstruction. Hemoglobin A1c is 5.1. workup during last admission including serological workup, paraproteinemia workup and TARYN 2 antibody was negative. SOn discharge plan was to have biopsy as an outpatient and follow with pig lead melter helper with correctional facility and do outpatient dialysis when indicated. However, he did not have biopsy done. no known family history of chronic kidney disease or end-stage renal disease. He was previously treated for hepatitis C with Epclusa from February to April 2019. He has longstanding insulin dependent diabetes mellitus. He has anemia attributed to anemia of chronic disease for which he has been maintained on weekly epoetin. He denied any specific symptoms this morning, except being thirsty and wanted to have ice chips, denied shortness of breath or chest pain. Allergies Allergy/AdvReac Type Severity Reaction Status Date / Time No Known Allergies Allergy Unverified 05/24/20 12:12 Home Medications Home Medications Medication Instructions Recorded Confirmed Type Novolin R Flexpen 0 unit SUBCUT UD 04/28/20 04/28/20 History Vitron-C 1 tab PO QAM 04/28/20 05/24/20 History epoetin amy-epbx 10,000 unit SUBCUT WK 04/28/20 05/24/20 History nortriptyline 25 mg PO HS 04/28/20 05/24/20 History omeprazole 20 mg PO QAM 04/28/20 05/24/20 History amlodipine 10 mg PO DAILY #30 tab 04/30/20 05/24/20 Rx lactulose 30 ml PO QID #1200 ml 04/30/20 05/24/20 Rx nadolol 40 mg PO BID #60 tab 04/30/20 05/24/20 Rx aspirin [Aspir-81] 81 mg PO QAM 05/24/20 05/24/20 History bumetanide 2 mg PO QAM 05/24/20 05/24/20 History insulin NPH and regular human 55 unit SUBCUT BID 05/24/20 05/24/20 History [Novolin 70-30 FlexPen U-100] rifaximin [Xifaxan] 550 mg PO BID 05/24/20 05/24/20 History spironolactone 25 mg PO BID 05/24/20 05/24/20 History Patient History Medical History Acute hepatic encephalopathy Allergic rhinitis Anemia, unspecified Chronic kidney disease, unspecified Esophageal varices without bleeding Flatulence GERD (gastroesophageal reflux disease) HCV (hepatitis C virus) Treated Hyperlipidemia Hypertension Liver cirrhosis Low back pain Microscopic hematuria Onychomycosis Proteinuria Pruritus, unspecified Type 2 diabetes mellitus Umbilical hernia without obstruction or gangrene Social History Smoking Status: Former smoker Do You Dip or Chew Tobacco: No; Hx Alcohol Use: Yes Alcohol type: beer and hard liquor Hx Substance Use: Yes Preferred Language: Austrian Communication Ability: Effective Gis Application Developer Required: No Beliefs That Will Affect Care: None Current Living Situation: Other Current Living Situation Comment: Prisoner at [facility] Other Information That Helps Us Care for You: No Feels Safe at Home: Yes Assistive Devices: None Assistive Devices Comment: Uses a wheelchair at [facility] Review of Systems Review of Systems: All systems reviewed & are unremarkable except as noted in HPI & below Physical Exam 2 Constitutional: WD/WN, vitals as above + ill appearing; no acute distress Eyes: PERRL, conjunctivae normal, anicteric sclerae ENMT: external ear and nose normal, oropharynx normal Ears: no hearing impairment Neck: trachea midline Respiratory: normal respiratory effort, lungs clear to auscultation no cough Auscultation: no crackles, no rales and no wheezes Cardiovascular: RRR, no murmur, no edema Gastrointestinal (Abdomen): normal bowel sounds, soft, nontender, no hepatosplenomegaly Percussion/Palpation: abdomen nontender, no guarding and abdomen not rigid Musculoskeletal: Extremities: extremities normal to inspection Gait: normal gait Skin: no rashes, warm and dry Neurologic: moves all extremities and awake Psychiatric: A+Ox3, euthymic affect Results & Data ([facility]) Vital Signs (Past 12 Hours) Vital Signs Temp Pulse Pulse Resp BP Pulse Ox 05/25/20 11:56 36.8 C 77 20 165/89 H 100 05/25/20 08:01 36.8 C 74 18 161/80 H 99 05/25/20 07:17 75 05/25/20 03:48 37.1 C 70 20 134/72 95 05/25/20 02:08 74 PG Care Time/CCT Total # of Minutes Spent Total Time Spent with Patient: Total time spent is greater than 50% in coordination of care (as documented) at patient's floor/unit and/or counseling patient: Coding Level of Care Code 69487 Inpt Consult Level 5 Diagnoses Acute kidney injury N17.9 Hyperkalemia E87.5 Chronic renal insufficiency N18.9 Proteinuria R80.9 Anemia D64.9 Partial small bowel obstruction K56.600 Metabolic acidosis E87.2
[2020-05-25] MEDS: SODIUM BICARBONATE 650 MG TAB PO SCH ×2 (14:07→20:33)
--- NOTE | 2020-05-25 15:04 | Hospitalist Progress Note ---
Date of Service May 25, 2020 Assessment & Plan (1) Chronic renal insufficiency: likely advanced to ESRD Cr is 4.29, it has steadily risen over the past few months last time he was admitted was April, at that time he was transferred to [place] for kidney biopsy but he says he did not get the biopsy will consult [facility] nephrology for their recommendations K is 5.5, give Kayexalate resume his Bumex 2mg PO daily, start today repeat K today likely will need BUSINESS PERFORMANCE MANAGER as he is not making much urine, K is high and has metabolic acidosis plan for vascular consult Wednesday for temp HD catheter, make NPO after midnight (2) Hyperkalemia: 5.6 on admission, 5.5 this morning give Bumex and Kayexalate today repeat later likely headed towards needed BUSINESS PERFORMANCE MANAGER since he cannot control potassium levels (3) Metabolic acidosis: due to worsening renal function, ESRD will start on Bicarb 650mg BID check labs tomorrow (4) Nausea & vomiting: likely etiology was partial SBO that is resolved, also had a lot of stool in colon zofran PRN no vomiting today (5) Partial small bowel obstruction: possible partial SBO based on CT, but he is moving bowels, tolerating diet and no vomiting diagnosed on CT scan on admission he vomited once in ED, small amount, negative for blood on testing (6) Esophageal varices without bleeding: history of varices reportedly had dark emesis at [facility]? he vomited once here, small amount, no blood on testing consult GI for their recommendations continue beta alisha would hold on NGT due to varices Protonix, change to BID pushes, no signs of bleeding stop Octreotide drip (7) Type 2 diabetes mellitus: place on Lantus 10 units BID and Novolog SS since intake will be low with NPO after midnight sugars low last night likely from poor intake all day now hyperglycemic in low 200's, see how he does, may need to increase Lantus (8) Umbilical hernia without obstruction or gangrene: (9) GERD (gastroesophageal reflux disease): (10) Liver cirrhosis: on rifaximin and lactulose ammonia quite high at 100 but mentating clearly doubt he is taking Lactulose as prescribed 4 times a day as he was constipated he is likely refusing at [facility] Admission and Anticipated Discharge Date Admission Date: May 24, 2020 Subjective patient wanting to eat and drink this morning called Dr. Valderrama with GI to discuss, he has no plans for EGD, can give patient a diet gave him clear liquids, Miralax and suppository, he moved his bowels 6 times RN told me he initially refused his Lactulose, his ammonia is 100 asked patient about Lactulose use at [facility], he says he does not like to take it due to diarrhea, suspect he is not taking it as prescribed discussed with nephrology, due to poor UO, hyperkalemia, metabolic acidosis he is getting close to needing BUSINESS PERFORMANCE MANAGER Dr Herrera will ask vascular surgery to place temp dialysis catheter on Wednesday if he cannot manage his electrolytes will give Kayexalate today to lower potassium overall patient feels better, especially after moving his bowels he is breathing well, no chest pain, no nausea or vomiging, no fever labs show Cr of 4.29, K 5.5, HCO3 17 had hypoglycemia last night but now better Review of Systems Review of Systems: All systems reviewed & are unremarkable except as noted in Subjective Physical Exam Constitutional: well developed, + obese, comfortable and + lethargic; no acute distress Eyes: PERRL, conjunctivae normal, anicteric sclerae ENMT: external ear and nose normal, oropharynx normal Neck: trachea midline, no thyromegaly Respiratory: normal respiratory effort, lungs clear to auscultation (diminished in bases) Cardiovascular: Rate/Rhythm: regular rate and regular rhythm Heart Sounds: normal S1 and normal S2; no murmur Vessels: no JVD Extremities: normal capillary refill and + edema (trace in legs bilaterally) Gastrointestinal (Abdomen): Inspection/Auscultation: + abdomen distended and normal bowel sounds Percussion/Palpation: abdomen soft and + hernia (umbilica l); abdomen nontender, no guarding and abdomen not rigid Musculoskeletal: Head/Neck/Chest: normocephalic, head atraumatic and neck supple Extremities: extremities normal to inspection and + abnormal strength (generalized weakness) Skin: no rashes, warm and dry Neurologic: patellar DTR's 2+ bilat, sensation intact and PERRL, EOMI, accommodation nl, no face palsy, no dysarthria Psychiatric: A+Ox3, euthymic affect Lymphatic: no cervical or axillary lymphadenopathy Results & Data Results & Data ([facility]) Vital Signs (Past 12 Hours) Vital Signs Temp Pulse Pulse Resp BP Pulse Ox 05/25/20 11:56 36.8 C 77 20 165/89 H 100 05/25/20 08:01 36.8 C 74 18 161/80 H 99 05/25/20 07:17 75 05/25/20 03:48 37.1 C 70 20 134/72 95 Laboratory Results Laboratory Results - last 24 hr 05/24/20 05/24/20 05/24/20 19:46 19:49 20:05 WBC RBC Hgb Hct MCV MCH MCHC RDW Std Deviation RDW Coeff of Kianna Plt Count MPV Platelet Estimate Sodium Potassium Chloride Carbon Dioxide Anion Gap BUN Creatinine Est Cr Clr Drug Dosing Est GFR ( Amer) Est GFR (Non-Af Amer) BUN/Creatinine Ratio Glucose POC Glucose 42 L* 50 L* 51 L* Calcium Total Bilirubin AST ALT Alkaline Phosphatase Ammonia Total Protein Albumin Globulin Albumin/Globulin Ratio Nasal Screen MRSA (PCR) 05/24/20 05/24/20 05/24/20 20:19 20:37 20:58 WBC RBC Hgb Hct MCV MCH MCHC RDW Std Deviation RDW Coeff of Kianna Plt Count MPV Platelet Estimate Sodium 140 Potassium 5.3 H Chloride 115 H Carbon Dioxide 18 L Anion Gap 7.0 BUN 43 H Creatinine 4.24 H Est Cr Clr Drug Dosing 20.4 Est GFR ( Amer) 15.8 Est GFR (Non-Af Amer) 13.6 BUN/Creatinine Ratio 10.1 Glucose 137 H POC Glucose 61 L* 116 H Calcium 9.5 Total Bilirubin AST ALT Alkaline Phosphatase Ammonia Total Protein Albumin Globulin Albumin/Globulin Ratio Nasal Screen MRSA (PCR) 05/24/20 05/25/20 05/25/20 21:20 08:29 08:31 WBC 5.23 RBC 3.39 L Hgb 10.6 L Hct 31.8 L MCV 93.8 MCH 31.3 MCHC 33.3 RDW Std Deviation 46.6 H RDW Coeff of Kianna 13.6 Plt Count 117 L MPV 11.0 H Platelet Estimate Decreased L Sodium Potassium Chloride Carbon Dioxide Anion Gap BUN Creatinine Est Cr Clr Drug Dosing Est GFR ( Amer) Est GFR (Non-Af Amer) BUN/Creatinine Ratio Glucose POC Glucose 217 H Calcium Total Bilirubin AST ALT Alkaline Phosphatase Ammonia Total Protein Albumin Globulin Albumin/Globulin Ratio Nasal Screen MRSA (PCR) Negative 10/03/20 10/03/20 10/03/20 08:31 08:31 11:47 WBC RBC Hgb Hct MCV MCH MCHC RDW Std Deviation RDW Coeff of Kianna Plt Count MPV Platelet Estimate Sodium 141 Potassium 5.5 H Chloride 115 H Carbon Dioxide 17 L Anion Gap 8.0 BUN 41 H Creatinine 4.29 H Est Cr Clr Drug Dosing 19.2 Est GFR ( Amer) 15.6 Est GFR (Non-Af Amer) 13.4 BUN/Creatinine Ratio 9.6 L Glucose 210 H POC Glucose 217 H Calcium 9.2 Total Bilirubin 0.9 AST 25 ALT 19 Alkaline Phosphatase 104 Ammonia 100.4 H Total Protein 7.4 Albumin 2.1 L Globulin 5.3 H Albumin/Globulin Ratio 0.4 L Nasal Screen MRSA (PCR) Medications Administered Current Inpatient Medications Acetaminophen (Acetaminophen 325 Mg Tab) 650 mg PO Q4H PRN PRN Reason: Pain or Fever Stop: 06/23/20 18:34 Amlodipine Besylate (Amlodipine Besylate 5 Mg Tab) 10 mg PO DAILY JENNIFER Stop: 06/24/20 08:59 Last Admin: 05/25/20 08:26 Dose: 10 mg Documented by: Dextrose (Dextrose 50% 50 Ml Syringe) 25 - 50 ml IV UD PRN; Protocol PRN Reason: Hypoglycemia Protocol Stop: 06/23/20 19:59 Glucagon (Glucagon For Inj 1 Mg Vial) 1 mg IM UD PRN; Protocol PRN Reason: Hypoglycemia Protocol Stop: 06/23/20 19:59 Glucose (Glucose 40% Gel 15 Gm Tube) 15 - 30 gm PO UD PRN; Protocol PRN Reason: Hypoglycemia Protocol Stop: 06/23/20 19:59 Glucose (Glucose 10 Tabs/Tube) 4 - 8 tabs PO UD PRN; Protocol PRN Reason: Hypoglycemia Protocol Stop: 06/23/20 19:59 Pantoprazole Sodium 40 mg/ (Syringe) 10 mls @ 5 mls/min IV BID JENNIFER Stop: 06/23/20 20:59 Last Admin: 05/25/20 08:21 Dose: 5 mls/min Documented by: Sodium Bicarbonate 75 meq/ (Sodium Chloride) 1,075 mls @ 80 mls/hr IV .[id number] JENNIFER Stop: 06/24/20 07:44 Last Admin: 05/25/20 08:21 Dose: 80 mls/hr Documented by: Insulin Aspart (Insulin Aspart 100 Units/Ml 3 Ml Pen) 0 units SC ACHS JENNIFER Stop: 06/23/20 20:59 Last Admin: 05/25/20 12:02 Dose: 2 units Documented by: Insulin Glargine (Insulin Glargine Solostar 100 Units/Ml 3 Ml Pen) 10 units SC BID JENNIFER Stop: 06/23/20 20:59 Last Admin: 05/25/20 08:31 Dose: 10 units Documented by: Lactulose (Lactulose Syrup 20 Gm/30 Ml Udc) 20 gm PO QID JENNIFER Stop: 06/23/20 18:59 Last Admin: 05/25/20 12:12 Dose: Not Given Documented by: Miscellaneous (Carbohydrates For Hypoglycemia ) 15 - 30 gm PO UD PRN PRN Reason: Hypoglycemia Treatment Stop: 06/23/20 19:59 Last Admin: 05/24/20 20:19 Dose: 15 gm Documented by: Nadolol (Nadolol 40 Mg Tab) 40 mg PO BID JENNIFER Stop: 06/23/20 20:59 Last Admin: 05/25/20 08:27 Dose: 40 mg Documented by: Nortriptyline HCl (Nortriptyline Hcl 25 Mg Cap) 25 mg PO HS [facility] Stop: 06/23/20 20:59 Last Admin: 05/24/20 20:43 Dose: 25 mg Documented by: Ondansetron HCl (Ondansetron Inj 2 Mg/Ml 2 Ml Vial) 4 mg IV Q6H PRN PRN Reason: Nausea Stop: 06/23/20 18:34 Polyethylene Glycol (Polyethylene (Miralax) 17 Gm Pack) 17 gm PO DAILY JENNIFER Stop: 06/24/20 09:44 Last Admin: 05/25/20 10:22 Dose: 17 gm Documented by: Rifaximin (Rifaximin 550 Mg Tablet) 550 mg PO BID [facility] Stop: 06/23/20 20:59 Last Admin: 05/25/20 08:25 Dose: 550 mg Documented by: Sodium Bicarbonate (Sodium Bicarbonate 650 Mg Tab) 650 mg PO BID [facility] Stop: 06/24/20 12:44 Last Admin: 05/25/20 14:07 Dose: 650 mg Documented by: PG Care Time/CCT Total # of Minutes Spent Total Time Spent with Patient: Total time spent is greater than 50% in coordination of care (as documented) at patient's floor/unit and/or counseling patient: Coding Level of Care Code 52779 Subseq Hosp Care Lvl 3 Diagnoses Chronic renal insufficiency N18.9 Hyperkalemia E87.5 Metabolic acidosis E87.2 Nausea & vomiting R11.2 Partial small bowel obstruction K56.600 Esophageal varices without bleeding I85.00 Type 2 diabetes mellitus E11.9 Umbilical hernia without obstruction or gangrene K42.9 GERD (gastroesophageal reflux disease) K21.9 Liver cirrhosis K74.60 Hepatic cirrhosis type: unspecified hepatic cirrhosis Ascites presence: without ascites (1) Liver cirrhosis Hepatic cirrhosis type: unspecified hepatic cirrhosis Ascites presence: without ascites Qualified Code(s): K74.60 - Unspecified cirrhosis of liver
[2020-05-25] MEDS: BUMETANIDE 1 MG TAB PO SCH (16:17)
[2020-05-25 16:44] LABS: BUN Creatinine Ratio 8.9 (10-20); Creatinine Clr Calc Pharmacy 19.2 ml/min; Est GFR (African American) 15.6; Est GFR (Non-African American) 13.4; Phosphorus 4.3 mg/dl (2.5-4.9); Potassium 5.7 mmol/L (3.5-5.1)
[2020-05-25] MEDS ORDERED: INSULIN ASPART PER UNIT 10 UNITS in SYRINGE 0 ML SC STA (18:42)
[2020-05-25] MEDS ORDERED: INSULIN ASPART 100 UNITS/ML 3 ML PEN SC ONE (19:00)
--- NOTE | 2020-05-25 20:02 | Consultation Report ---
DATE OF CONSULTATION: 05/25/2020 GASTROENTEROLOGY CONSULT NOTE REASON FOR CONSULTATION: I was asked to consult on this gentleman by Dr. Hess for evaluation of altered mental status. HISTORY OF PRESENT ILLNESS: The patient is a 65-year-old gentleman who had a similar presentation almost exactly a month ago. He has a history of cirrhosis of the liver related to hepatitis C. He presents with lethargy and altered mental status. He also had a report from the retirement facility of vomiting some coffee grounds. He is an extremely poor historian. He continues to have lethargy and the history is difficult to obtain, but he denies any abdominal pain. He has not had any vomiting since he has been admitted. He denies any fevers. He has been constipated and it is questionable whether he has been taking his lactulose on a regular basis. I reviewed his medical records and his past medical history. PAST MEDICAL HISTORY: Significant for what is already mentioned above, diabetes, worsening renal failure, hypertension, hyperlipidemia, GERD. As part of his cirrhosis, he has a history of varices and is on beta blockers. SOCIAL HISTORY: Significant for being a former smoker and alcohol use. FAMILY HISTORY: Negative for gastrointestinal disease. ALLERGIES: He denies any drug allergies. OUTPATIENT MEDICATIONS: Include insulin, Depo, nortriptyline, omeprazole, amlodipine, lactulose, nadolol, baby aspirin, Bumex, Xifaxan, and spironolactone. REVIEW OF SYSTEMS: As above, otherwise he denies any recent change in vision or hearing. He has had no easy bruising. He denies any productive cough, though he has had weakness and mental status changes as above. He denies any palpitations or exertional chest pain. He denies any history of recent seizures. He has had no joint swelling. He denies any dysuria. He denies any polyuria. He denies any heat or cold intolerance. He denies rectal bleeding. He denies weight loss. PHYSICAL EXAMINATION: GENERAL: Reveals a pleasant gentleman who is slightly lethargic, but in no distress, watching television in bed with guards at the bedside. VITAL SIGNS: His most recent blood pressure is 165/89, pulse is 77, temperature is 36.8. SKIN: Anicteric. EYES: Show anicteric sclerae. MOUTH: Dry, but clear of lesions. NECK: Supple. CHEST: Clear. HEART: Regular. ABDOMEN: Benign with good bowel sounds. There is no organomegaly, masses, or rebound tenderness noted. EXTREMITIES: Warm with fair distal pulses. NEUROLOGIC: He is alert and oriented but lethargic. LABORATORY DATA: Show a recent white blood cell count of 5.2, hemoglobin 10.6, platelet count of 117,000. Liver enzymes are normal. Ammonia was 100. BUN and creatinine are 41 and 4.29, respectively. Imaging, which I reviewed, CAT scan from yesterday shows cirrhotic liver. Question of some dilated small bowel loops. There is no ascites noted. IMPRESSION AND PLAN: A 65-year-old gentleman with cirrhosis. His hemoglobin is stable and I highly doubt he is having significant GI bleeding. I do not recommend an endoscopy. I do recommend continuing his lactulose. It appears that compliance may be an issue. I would expect him at his reported 4 times a day lactulose that he would be having more frequent bowel movements and not constipation. I would titrate lactulose to 3-4 bowel movements a day. He should continue on his Xifaxan. MTDD
[2020-05-25] MEDS: NORTRIPTYLINE HCL 25 MG CAP PO SCH (20:32)
[2020-05-25 23:52] LABS: Albumin Globulin Ratio 0.4 (0.9-2); Albumin Level 2.2 gm/dl (3.4-5.0); BUN Creatinine Ratio 8.4 (10-20); Bilirubin,Total 0.9 mg/dl (0.2-1); Calcium 9.3 mg/dl (8.5-10.1); Creatinine Clr Calc Pharmacy 18.1 ml/min; Est GFR (African American) 14.5; Est GFR (Non-African American) 12.5; Globulin 5.6 gm/dl (2.5-4.0); Phosphorus 4.9 mg/dl (2.5-4.9); Potassium 4.8 mmol/L (3.5-5.1); Total Protein 7.8 gm/dl (6.4-8.2)
[2020-05-26 07:09] LABS: Hematocrit (blood only) 31.9 % (42-52); Hemoglobin 11.1 g/dL (14.0-18.0); Mean Corpuscular Hemoglobin 32.4 pg (25-34); Mean Corpuscular Hgb Conc 34.8 g/dL (32-36); Mean Platelet Volume 10.5 fL (7.4-10.4); Platelet Count 133 K/uL (130-400); RDW Coefficient of Variation 13.5 % (11.5-14.5); RDW Standard Deviation 45.7 fL (36.4-46.3); Red Blood Count 3.43 M/uL (4.7-6.1); White Blood Count 5.52 K/uL (4.8-10.8)
[2020-05-26 07:26] LABS: BUN Creatinine Ratio 8.6 (10-20); Calcium 8.8 mg/dl (8.5-10.1); Creatinine Clr Calc Pharmacy 18.5 ml/min; Est GFR (African American) 14.9; Est GFR (Non-African American) 12.8; Potassium 4.9 mmol/L (3.5-5.1)
[2020-05-26 07:31] LABS: Ferritin 168.4 ng/ml (8-388)
[2020-05-26] MEDS: SODIUM BICARBONATE 650 MG TAB PO SCH ×2 (08:07→20:35)
[2020-05-26] MEDS: LACTULOSE SYRUP 20 GM/30 ML UDC PO SCH ×4 (08:07→20:34)
[2020-05-26] MEDS: PANTOprazole 40 MG in SYRINGE 0 ML IV SCH ×2 (08:07→20:34)
[2020-05-26] MEDS: BUMETANIDE 1 MG TAB PO SCH (08:08)
[2020-05-26] MEDS: amLODIPine BESYLATE 5 MG TAB PO SCH (08:09)
[2020-05-26] MEDS: INSULIN GLARGINE SOLOSTAR 100 UNITS/ML 3 ML PEN SC SCH ×2 (08:10→20:31)
[2020-05-26] MEDS: INSULIN ASPART 100 UNITS/ML 3 ML PEN SC SCH ×4 (08:11→20:31)
[2020-05-26] MEDS: rifAXIMin 550 MG TABLET PO SCH ×2 (09:09→20:35)
[2020-05-26] MEDS: nadoloL 40 MG TAB PO SCH ×2 (09:09→20:33)
--- NOTE | 2020-05-26 12:14 | Nephrology Progress Note ---
Date of Service May 26, 2020 Assessment & Plan (1) Acute kidney injury: Chicho admitted with partial small bowel obstruction after he presented with nausea and vomiting for few days. Renal function has been rapidly worsening over last 6 months, starting December 2018 when creatinine was 1.8 and over last more than a month creatinine has been staying around 4.4-4.5. Has high- grade proteinuria and microscopic hematuria, previous noninvasive workup including paraproteinemia workup, serology was unremarkable. No post renal obstruction. Did not have a renal biopsy. Renal function has been relatively stable over last few days, hyperkalemia resolved. Urine output has improved over last 24 hours. -- Continue on sodium bicarbonate 650 mg twice a day -- monitor intake and output closely -- as urine output improved, volume status acceptable and electrolyte better, no acute indication for renal replacement therapy at this time. We can continue to monitor renal function electrolyte, if he is clinically otherwise improved and stable will hold off on dialysis and dialysis can be started as needed in the outpatient setting. -- continue on renal diet, low-salt and low-potassium diet, left home nephrology precaution. -- Dose medications for GFR less than 15 Will follow (2) Hyperkalemia: (3) Chronic renal insufficiency: (4) Proteinuria: (5) Anemia: (6) Partial small bowel obstruction: (7) Metabolic acidosis: Admission and Anticipated Discharge Date Admission Date: May 24, 2020 Subjective Chicho was seen and examined in his room this morning. Overall he seems to be at his baseline, denies any specific symptoms. Renal function staying relatively stable since admission. Hyperkalemia resolved. Has been voiding normally in fact urine output has improved over last 24 hours. Blood pressure slightly elevated. Review of Systems Review of Systems: All systems reviewed & are unremarkable except as noted in HPI & below Physical Exam Constitutional: well developed and well nourished; no acute distress Respiratory: normal respiratory effort, lungs clear to auscultation Cardiovascular: RRR, no murmur, no edema Neurologic: moves all extremities and awake; not confused Psychiatric: A+Ox3, euthymic affect Results & Data ([facility]) Vital Signs (Past 12 Hours) Vital Signs Temp Pulse Pulse Resp BP Pulse Ox 05/26/20 11:36 36.6 C 83 17 156/85 H 99 05/26/20 07:32 36.8 C 84 18 170/97 H 100 05/26/20 07:23 89 05/26/20 04:03 36.6 C 83 18 160/80 H 100 05/26/20 03:17 79 PG Care Time/CCT Total # of Minutes Spent Total Time Spent with Patient: Total time spent is greater than 50% in coordination of care (as documented) at patient's floor/unit and/or counseling patient: Coding Level of Care Code 30485 Subseq Hosp Care Lvl 3 Diagnoses Acute kidney injury N17.9 Hyperkalemia E87.5 Chronic renal insufficiency N18.9 Proteinuria R80.9 Anemia D64.9 Partial small bowel obstruction K56.600 Metabolic acidosis E87.2
--- NOTE | 2020-05-26 15:54 | Hospitalist Progress Note ---
Date of Service May 26, 2020 Assessment & Plan (1) Chronic renal insufficiency: CKD stage IV/V, advancing toward needing HD Cr is 4.45, it has steadily risen over the past few months last time he was admitted was April, at that time he was transferred to [place] for kidney biopsy but he says he did not get the biopsy will consult [facility] nephrology for their recommendations K improved to 4.9 after Bumex and resume his Bumex 2mg PO daily likely will need GARMENT FINISHER in the near future as he is not making much urine, K is high and has metabolic acidosis hold on vascular consult as Dr. Herrera thinks this can be done back at [facility] (2) Hyperkalemia: 5.6 on admission, 5.5 on 05/25 treated with Bumex and Kayexalate on 05/25 resolved, down to 4.9 today (3) Metabolic acidosis: due to worsening renal function, ESRD will start on Bicarb 650mg BID check labs tomorrow (4) Nausea & vomiting: likely etiology was partial SBO that is resolved, also had a lot of stool in colon zofran PRN no vomiting today (5) Partial small bowel obstruction: possible partial SBO based on CT, but he is moving bowels, tolerating diet and no vomiting diagnosed on CT scan on admission he vomited once in ED, small amount, negative for blood on testing (6) Esophageal varices without bleeding: history of varices reportedly had dark emesis at [facility]? he vomited once here, small amount, no blood on testing consult GI for their recommendations continue beta alisha would hold on NGT due to varices Protonix, change to BID pushes, no signs of bleeding stop Octreotide drip (7) Type 2 diabetes mellitus: place on Lantus 10 units BID and Novolog SS since intake will be low with NPO after midnight sugars better on Lantus 15 BID and Novolog with tighter correction factor and carb ratio (8) Umbilical hernia without obstruction or gangrene: (9) GERD (gastroesophageal reflux disease): (10) Liver cirrhosis: on rifaximin and lactulose ammonia quite high at 100 but mentating clearly doubt he is taking Lactulose as prescribed 4 times a day as he was constipated he is likely refusing at [facility] and they don't force him put on discharge instruction that he NEEDS to take lactulose and rifaximin Admission and Anticipated Discharge Date Admission Date: May 24, 2020 Subjective patient is eating and drinking well he is moving his bowels reviewed labs, Cr remains high, K down to normal, HCO3 low discussed with Dr. Herrera, can likely hold off on starting HD this admission she said the care home system has a atg architect and can order HD access to be placed through care home system will check labs in AM, can hold off on temp HD catheter Review of Systems Review of Systems: All systems reviewed & are unremarkable except as noted in Subjective Constitutional: + fatigue and + weakness; no fever Respiratory: no cough and no dyspnea Cardiovascular: no chest pain and no edema Gastrointestinal: + bloating, + constipation and + diarrhea/loose stools Physical Exam Constitutional: well developed, + obese, comfortable and + lethargic; no acute distress Eyes: PERRL, conjunctivae normal, anicteric sclerae ENMT: external ear and nose normal, oropharynx normal Neck: trachea midline, no thyromegaly Respiratory: normal respiratory effort, lungs clear to auscultation (diminished in bases) Cardiovascular: Rate/Rhythm: regular rate and regular rhythm Heart Sounds: normal S1 and normal S2; no murmur Vessels: no JVD Extremities: normal capillary refill and + edema (trace in legs bilaterally) Gastrointestinal (Abdomen): Inspection/Auscultation: + abdomen distended and normal bowel sounds Percussion/Palpation: abdomen soft and + hernia (umbilical); abdomen nontender, no guarding and abdomen not rigid Musculoskeletal: Head/Neck/Chest: normocephalic, head atraumatic and neck supple Extremities: extremities normal to inspection and + abnormal strength (generalized weakness) Skin: no rashes, warm and dry Neurologic: patellar DTR's 2+ bilat, sensation intact and PERRL, EOMI, accommodation nl, no face palsy, no dysarthria Psychiatric: A+Ox3, euthymic affect Lymphatic: no cervical or axillary lymphadenopathy Results & Data Results & Data ([facility]) Vital Signs (Past 12 Hours) Vital Signs Temp Pulse Pulse Resp BP Pulse Ox 05/26/20 15:51 85 05/26/20 15:42 36.5 C 89 17 167/97 H 99 05/26/20 11:36 36.6 C 83 17 156/85 H 99 05/26/20 07:32 36.8 C 84 18 170/97 H 100 05/26/20 07:23 89 05/26/20 04:03 36.6 C 83 18 160/80 H 100 Laboratory Results Laboratory Results - last 24 hr 05/25/20 05/26/20 05/26/20 22:54 06:56 06:56 WBC 5.52 RBC 3.43 L Hgb 11.1 L Hct 31.9 L MCV 93.0 MCH 32.4 MCHC 34.8 RDW Std Deviation 45.7 RDW Coeff of Kianna 13.5 Plt Count 133 MPV 10.5 H Sodium 142 140 Potassium 4.8 D 4.9 Chloride 113 H 113 H Carbon Dioxide 22 23 Anion Gap 7.0 5.0 BUN 38 H 38 H Creatinine 4.55 H* 4.45 H Est Cr Clr Drug Dosing 18.1 18.5 Est GFR ( Amer) 14.5 14.9 Est GFR (Non-Af Amer) 12.5 12.8 BUN/Creatinine Ratio 8.4 L 8.6 L Glucose 156 H 130 H POC Glucose Calcium 9.3 8.8 Phosphorus 4.9 Iron 78 Transferrin 258 Transferrin % Sat 21 Ferritin 168.4 Total Bilirubin 0.9 AST 39 H ALT 23 Alkaline Phosphatase 112 Total Protein 7.8 Albumin 2.2 L Globulin 5.6 H Albumin/Globulin Ratio 0.4 L PTH Intact 05/26/20 05/26/20 05/26/20 06:56 07:40 11:53 WBC RBC Hgb Hct MCV MCH MCHC RDW Std Deviation RDW Coeff of Kianna Plt Count MPV Sodium Potassium Chloride Carbon Dioxide Anion Gap BUN Creatinine Est Cr Clr Drug Dosing Est GFR ( Amer) Est GFR (Non-Af Amer) BUN/Creatinine Ratio Glucose POC Glucose 145 H 267 H Calcium Phosphorus Iron Transferrin Transferrin % Sat Ferritin Total Bilirubin AST ALT Alkaline Phosphatase Total Protein Albumin Globulin Albumin/Globulin Ratio PTH Intact 236.3 H 05/26/20 16:41 WBC RBC Hgb Hct MCV MCH MCHC RDW Std Deviation RDW Coeff of Kianna Plt Count MPV Sodium Potassium Chloride Carbon Dioxide Anion Gap BUN Creatinine Est Cr Clr Drug Dosing Est GFR ( Amer) Est GFR (Non-Af Amer) BUN/Creatinine Ratio Glucose POC Glucose 222 H Calcium Phosphorus Iron Transferrin Transferrin % Sat Ferritin Total Bilirubin AST ALT Alkaline Phosphatase Total Protein Albumin Globulin Albumin/Globulin Ratio PTH Intact Medications Administered Current Inpatient Medications Acetaminophen (Acetaminophen 325 Mg Tab) 650 mg PO Q4H PRN PRN Reason: Pain or Fever Stop: 06/23/20 18:34 Amlodipine Besylate (Amlodipine Besylate 5 Mg Tab) 10 mg PO DAILY JENNIFER Stop: 06/24/20 08:59 Last Admin: 05/26/20 08:09 Dose: 10 mg Documented by: Bumetanide (Bumetanide 1 Mg Tab) 2 mg PO QAM JENNIFER Stop: 06/24/20 15:44 Last Admin: 05/26/20 08:08 Dose: 2 mg Documented by: Dextrose (Dextrose 50% 50 Ml Syringe) 25 - 50 ml IV UD PRN; Protocol PRN Reason: Hypoglycemia Protocol Stop: 06/23/20 19:59 Glucagon (Glucagon For Inj 1 Mg Vial) 1 mg IM UD PRN; Protocol PRN Reason: Hypoglycemia Protocol Stop: 06/23/20 19:59 Glucose (Glucose 40% Gel 15 Gm Tube) 15 - 30 gm PO UD PRN; Protocol PRN Reason: Hypoglycemia Protocol Stop: 06/23/20 19:59 Glucose (Glucose 10 Tabs/Tube) 4 - 8 tabs PO UD PRN; Protocol PRN Reason: Hypoglycemia Protocol Stop: 06/23/20 19:59 Pantoprazole Sodium 40 mg/ (Syringe) 10 mls @ 5 mls/min IV BID JENNIFER Stop: 06/23/20 20:59 Last Admin: 05/26/20 20:34 Dose: 5 mls/min Documented by: Insulin Aspart (Insulin Aspart 100 Units/Ml 3 Ml Pen) 0 units SC ACHS JENNIFER Stop: 06/23/20 20:59 Last Admin: 05/26/20 20:31 Dose: 1 units Documented by: Insulin Glargine (Insulin Glargine Solostar 100 Units/Ml 3 Ml Pen) 15 units SC BID JENNIFER Stop: 06/24/20 20:59 Last Admin: 05/26/20 20:31 Dose: 15 units Documented by: Lactulose (Lactulose Syrup 20 Gm/30 Ml Udc) 20 gm PO QID JENNIFER Stop: 06/23/20 18:59 Last Admin: 05/26/20 20:34 Dose: Not Given Documented by: Miscellaneous (Carbohydrates For Hypoglycemia ) 15 - 30 gm PO UD PRN PRN Reason: Hypoglycemia Treatment Stop: 06/23/20 19:59 Last Admin: 05/24/20 20:19 Dose: 15 gm Documented by: Nadolol (Nadolol 40 Mg Tab) 40 mg PO BID JENNIFER Stop: 06/23/20 20:59 Last Admin: 05/26/20 20:33 Dose: 40 mg Documented by: Nortriptyline HCl (Nortriptyline Hcl 25 Mg Cap) 25 mg PO HS JENNIFER Stop: 06/23/20 20:59 Last Admin: 05/26/20 20:35 Dose: 25 mg Documented by: Ondansetron HCl (Ondansetron Inj 2 Mg/Ml 2 Ml Vial) 4 mg IV Q6H PRN PRN Reason: Nausea Stop: 06/23/20 18:34 Last Admin: 05/26/20 16:48 Dose: 4 mg Documented by: Rifaximin (Rifaximin 550 Mg Tablet) 550 mg PO BID [facility] Stop: 06/23/20 20:59 Last Admin: 05/26/20 20:35 Dose: 550 mg Documented by: Sodium Bicarbonate (Sodium Bicarbonate 650 Mg Tab) 650 mg PO BID [facility] Stop: 06/24/20 12:44 Last Admin: 05/26/20 20:35 Dose: 650 mg Documented by: PG Care Time/CCT Total # of Minutes Spent Total Time Spent with Patient: Total time spent is greater than 50% in coordination of care (as documented) at patient's floor/unit and/or counseling patient: Coding Level of Care Code 97333 Subseq Hosp Care Lvl 3 Diagnoses Chronic renal insufficiency N18.9 Hyperkalemia E87.5 Metabolic acidosis E87.2 Nausea & vomiting R11.2 Partial small bowel obstruction K56.600 Esophageal varices without bleeding I85.00 Type 2 diabetes mellitus E11.9 Umbilical hernia without obstruction or gangrene K42.9 GERD (gastroesophageal reflux disease) K21.9 Liver cirrhosis K74.60 Ascites presence: without ascites Hepatic cirrhosis type: unspecified hepatic cirrhosis (1) Liver cirrhosis Ascites presence: without ascites Hepatic cirrhosis type: unspecified hepatic cirrhosis Qualified Code(s): K74.60 - Unspecified cirrhosis of liver
[2020-05-26] MEDS: NORTRIPTYLINE HCL 25 MG CAP PO SCH (20:35)
--- NOTE | 2020-05-27 07:50 | Hospitalist Progress Note ---
Date of Service May 27, 2020 Assessment & Plan (1) Chronic renal insufficiency: CKD stage IV/V, advancing toward needing HD Cr is 4.45, it has steadily risen over the past few months last time he was admitted was April, at that time he was transferred to [place] for kidney biopsy but he says he did not get the biopsy will consult [facility] [place] for their recommendations K improved to 4.9 after Bumex and resume his Bumex 2mg PO daily likely will need FREIGHT BREAKER in the near future as he is not making much urine, K is high and has metabolic acidosis hold on vascular consult as Dr. Herrera thinks this can be done back at [facility] (2) Hyperkalemia: 5.6 on admission, 5.5 on 05/25 treated with Bumex and Kayexalate on 05/25 resolved, down to 4.9 today (3) Metabolic acidosis: due to worsening renal function, ESRD was started on Bicarb 650mg BID (4) Nausea & vomiting: likely etiology was partial SBO that is resolved, also had a lot of stool in colon zofran PRN (5) Partial small bowel obstruction: possible partial SBO based on CT, but he is moving bowels, tolerating diet and no vomiting diagnosed on CT scan on admission he vomited once in ED, small amount, negative for blood on testing (6) Esophageal varices without bleeding: history of varices reportedly had dark emesis at [facility]? he vomited once here, small amount, no blood on testing consult GI for their recommendations continue beta laisha, nadolol would hold on NGT due to varices Protonix, change to BID pushes, no signs of bleeding (7) Type 2 diabetes mellitus: place on Lantus 10 units BID and Novolog SS since intake will be low with NPO after midnight sugars better on Lantus 15 BID and Novolog with tighter correction factor and carb ratio (8) Umbilical hernia without obstruction or gangrene: (9) GERD (gastroesophageal reflux disease): (10) Liver cirrhosis: on rifaximin and lactulose ammonia elevated 100 continue ammonia lowering agents doubt he is taking Lactulose as prescribed 4 times a day as he was constipated he is likely refusing at [facility] and they don't force him put on discharge instruction that he NEEDS to take lactulose and rifaximin (11) Tremor: Patient's tremor is not classic for Parkinson's as it is more with intention than with resting he however does have some lack of expression and slow speech I did not see these on any antipsychotic medications currently to have this be associate with tardive dyskinesia however I will consult neurology to see if they feel there may be a parkinsonian component to his current state Admission and Anticipated Discharge Date Admission Date: May 24, 2020 Subjective this pt is with mumbled speech and c/o some tremor that seems to be intention tremor. He has had progressive renal failure, with associated proteinuria. we have little records from [facility] but pt seems to feel this tremor is a new finding Review of Systems Review of Systems: Mild distress and fatigue no headache, blurry or double vision no speech or swallowing issues no chest pain, pressure or palpitations no shortness of breath, cough or wheezes no abdominal pain, nausea or vomiting, diarrhea or constipation no dysuria, hematuria or frequency no focal joint pain or swelling no back pain, CVA tenderness or radicular pain no bruising, bleeding or rashes pt is weak has mumbling speech and some tremor no complaints of anxiety or depression. Physical Exam Physical Exam: The patient appeared well nourished and normally developed. Vital signs as documented. Head exam is normocephalic atraumatic no scleral icterus Neck is without JVD, thyromegaly, or carotid bruits. Lungs are clear to auscultation, no focal loss of breath sounds Cardiac exam, Rhythm is regular.. No murmurs, rubs or gallops. Abdominal exam reveals normal bowel sounds, soft non tender, no masses Extremities are mildly edematous and both pedal pulses are present Neurologic exam is alert and oriented, no focal loss of strength or sensation Demonstrates some intention tremor during my examination does not have the have any appear to have any pill-rolling or rigidity that I can see Skin is without bruises or rashes as of some peripheral edema Psychologically is without concerns for anxiety or depression. Results & Data Results & Data ([facility]) Vital Signs (Past 12 Hours) Vital Signs Temp Pulse Pulse Resp BP Pulse Ox 05/27/20 07:40 97.5 F L 94 H 20 158/105 H 97 05/26/20 22:22 98.1 F 95 H 18 133/89 99 05/26/20 22:20 94 H PG Care Time/CCT Total # of Minutes Spent Total Time Spent with Patient: Total time spent is greater than 50% in coordination of care (as documented) at patient's floor/unit and/or counseling patient: Coding Level of Care Code 12424 Subseq Hosp Care Lvl 3 Diagnoses Chronic renal insufficiency N18.9 Hyperkalemia E87.5 Metabolic acidosis E87.2 Nausea & vomiting R11.2 Partial small bowel obstruction K56.600 Esophageal varices without bleeding I85.00 Type 2 diabetes mellitus E11.9 Umbilical hernia without obstruction or gangrene K42.9 GERD (gastroesophageal reflux disease) K21.9 Liver cirrhosis K74.60 Ascites presence: without ascites Hepatic cirrhosis type: unspecified hepatic cirrhosis Tremor R25.1 (1) Liver cirrhosis Ascites presence: without ascites Hepatic cirrhosis type: unspecified hepatic cirrhosis Qualified Code(s): K74.60 - Unspecified cirrhosis of liver
[2020-05-27] MEDS: PANTOprazole 40 MG in SYRINGE 0 ML IV SCH ×2 (07:58→21:22)
[2020-05-27] MEDS: amLODIPine BESYLATE 5 MG TAB PO SCH (07:58)
[2020-05-27] MEDS: rifAXIMin 550 MG TABLET PO SCH ×2 (07:58→22:09)
[2020-05-27] MEDS: SODIUM BICARBONATE 650 MG TAB PO SCH ×2 (07:58→22:09)
[2020-05-27] MEDS: BUMETANIDE 1 MG TAB PO SCH (07:59)
[2020-05-27] MEDS: nadoloL 40 MG TAB PO SCH ×2 (07:59→21:23)
[2020-05-27] MEDS: INSULIN GLARGINE SOLOSTAR 100 UNITS/ML 3 ML PEN SC SCH ×2 (08:01→21:25)
[2020-05-27] MEDS: INSULIN ASPART 100 UNITS/ML 3 ML PEN SC SCH ×4 (08:01→21:24)
[2020-05-27] MEDS: LACTULOSE SYRUP 20 GM/30 ML UDC PO SCH ×4 (08:02→21:22)
[2020-05-27 08:28] LABS: BUN Creatinine Ratio 8.9 (10-20); Calcium 8.2 mg/dl (8.5-10.1); Creatinine Clr Calc Pharmacy 18.5 ml/min; Est GFR (Non-African American) 12.9
[2020-05-27] MEDS: CALCITRIOL 0.25 MCG CAPSULE PO SCH (10:28)
--- NOTE | 2020-05-27 10:37 | Nephrology Progress Note ---
Date of Service May 27, 2020 Assessment & Plan (1) Acute kidney injury: Chicho admitted with partial small bowel obstruction after he presented with nausea and vomiting for few days. Renal function has been rapidly worsening over last 6 months, starting December 2018 when creatinine was 1.8 and over last more than a month creatinine has been staying around 4.4-4.5. Has high- grade proteinuria and microscopic hematuria, previous noninvasive workup including paraproteinemia workup, serology was unremarkable. No post renal obstruction. Did not have a renal biopsy. Renal function has been relatively stable over last few days, hyperkalemia resolved. volume status acceptable. BP remained elevated. -- Continue on sodium bicarbonate 650 mg twice a day -- monitor intake and output closely -- as patient seems to be mainly concerned with worsening of tremor, may need Neurology evaluation prior to discharge -- start on hydralazine 25 milligram 3 times a day -- as urine output improved, volume status acceptable and electrolyte better, no acute indication for renal replacement therapy at this time. We can continue to monitor renal function electrolyte, if he is clinically otherwise improved and stable will hold off on dialysis and dialysis can be started as needed in the outpatient setting. -- continue on renal diet, low-salt and low-potassium diet, left home nephrology precaution. -- Dose medications for GFR less than 15 Will follow (2) Hyperkalemia: (3) Chronic renal insufficiency: (4) Proteinuria: (5) Anemia: (6) Partial small bowel obstruction: (7) Metabolic acidosis: Admission and Anticipated Discharge Date Admission Date: May 24, 2020 Phi Valentino was seen and examined in his room this morning. Overall he seems to be at his baseline, denies shortness of breath, chest pain, appetite has been decent.. Renal function staying relatively stable since admission. Hyperkalemia resolved. Blood pressure slightly elevated. Urine output has been low over last 24 hours however as per patient report it is not an accurate measurement. patient's main complaint this morning seems to be worsening tree more in his hands with any kind of activity which has been interfering with his eating. Review of Systems Review of Systems: All systems reviewed & are unremarkable except as noted in HPI & below Physical Exam Constitutional: WD/WN, vitals as above no acute distress Respiratory: normal respiratory effort, lungs clear to auscultation Cardiovascular: RRR, no murmur, no edema Neurologic: moves all extremities and awake; not confused Psychiatric: A+Ox3, euthymic affect Results & Data ([facility]) Vital Signs (Past 12 Hours) Vital Signs Temp Pulse Resp BP Pulse Ox 05/27/20 07:40 36.4 C L 94 H 20 158/105 H 97 PG Care Time/CCT Total # of Minutes Spent Total Time Spent with Patient: Total time spent is greater than 50% in coordination of care (as documented) at patient's floor/unit and/or counseling patient: Coding Level of Care Code 05923 Subseq Hosp Care Lvl 3 Diagnoses Acute kidney injury N17.9 Hyperkalemia E87.5 Chronic renal insufficiency N18.9 Proteinuria R80.9 Anemia D64.9 Partial small bowel obstruction K56.600 Metabolic acidosis E87.2
[2020-05-27] MEDS: NORTRIPTYLINE HCL 25 MG CAP PO SCH (22:09)
[2020-05-28 07:46] LABS: Calcium 8.2 mg/dl (8.5-10.1); Creatinine Clr Calc Pharmacy 19.8 ml/min; Est GFR (African American) 16.2; Potassium 3.5 mmol/L (3.5-5.1)
[2020-05-28 07:57] LABS: Thyroid Stimulating Hormone 2.14 uIu/ml (0.300-4.500)
[2020-05-28] MEDS: PANTOprazole 40 MG in SYRINGE 0 ML IV SCH ×2 (08:20→21:06)
[2020-05-28] MEDS: BUMETANIDE 1 MG TAB PO SCH (08:20)
[2020-05-28] MEDS: nadoloL 40 MG TAB PO SCH (08:20)
[2020-05-28] MEDS: CALCITRIOL 0.25 MCG CAPSULE PO SCH (08:20)
[2020-05-28] MEDS: INSULIN ASPART 100 UNITS/ML 3 ML PEN SC SCH ×4 (08:24→21:06)
[2020-05-28] MEDS: INSULIN GLARGINE SOLOSTAR 100 UNITS/ML 3 ML PEN SC SCH ×2 (08:24→21:06)
[2020-05-28] MEDS: LACTULOSE SYRUP 20 GM/30 ML UDC PO SCH ×4 (10:18→21:06)
[2020-05-28] MEDS: SODIUM BICARBONATE 650 MG TAB PO SCH ×2 (10:18→21:07)
[2020-05-28] MEDS: rifAXIMin 550 MG TABLET PO SCH ×2 (10:19→21:07)
[2020-05-28] MEDS: amLODIPine BESYLATE 5 MG TAB PO SCH (10:19)
[2020-05-28 11:07] LABS: Folate (Folic Acid) 14.09 ng/ml (>5.38)
--- NOTE | 2020-05-28 11:42 | Nephrology Progress Note ---
Date of Service May 28, 2020 Assessment & Plan (1) Acute kidney injury: Chciho admitted with partial small bowel obstruction after he presented with nausea and vomiting for few days. Renal function has been rapidly worsening over last 6 months, starting December 2018 when creatinine was 1.8 and over last more than a month creatinine has been staying around 4.4-4.5. Has high- grade proteinuria and microscopic hematuria, previous noninvasive workup including paraproteinemia workup, serology was unremarkable. No post renal obstruction. Did not have a renal biopsy. Renal function has been relatively stable over last few days, hyperkalemia resolved. volume status acceptable. BP remained elevated. -- Continue on sodium bicarbonate 650 mg twice a day -- monitor intake and output closely -- start on hydralazine 25 milligram 3 times a day -- as urine output improved, volume status acceptable and electrolyte better, no acute indication for renal replacement therapy at this time. We can continue to monitor renal function electrolyte, if he is clinically otherwise improved and stable will hold off on dialysis and dialysis can be started as needed in the outpatient setting. -- continue on renal diet, low-salt and low-potassium diet, left home nephrology precaution. -- Dose medications for GFR less than 15 Will follow while inpatient (2) Hyperkalemia: (3) Chronic renal insufficiency: (4) Proteinuria: (5) Anemia: (6) Partial small bowel obstruction: (7) Metabolic acidosis: Admission and Anticipated Discharge Date Admission Date: May 24, 2020 Subjective Chicho was seen and examined in his room this morning. Overall his clinically stable, feels about the same, continues to be bothered by tremor or, more in left upper extremity. Voiding normally. No shortness of breath or chest pain. Blood pressure has been running high. Renal function, electrolytes stable. Review of Systems Review of Systems: All systems reviewed & are unremarkable except as noted in HPI & below Physical Exam Constitutional: well developed and well nourished; no acute distress Respiratory: normal respiratory effort, lungs clear to auscultation Cardiovascular: RRR, no murmur, no edema Neurologic: moves all extremities and awake; not confused Psychiatric: A+Ox3, euthymic affect Results & Data ([facility]) Vital Signs (Past 12 Hours) Vital Signs Temp Pulse Pulse Resp BP Pulse Ox 05/28/20 11:11 36.5 C 77 20 164/89 H 99 05/28/20 07:24 80 05/28/20 06:43 36.8 C 81 20 171/94 H 100 05/28/20 03:39 89 05/28/20 02:55 36.6 C 74 20 141/74 H 94 PG Care Time/CCT Total # of Minutes Spent Total Time Spent with Patient: Total time spent is greater than 50% in coordination of care (as documented) at patient's floor/unit and/or counseling patient: Coding Level of Care Code 10773 Subseq Hosp Care Lvl 3 Diagnoses Acute kidney injury N17.9 Hyperkalemia E87.5 Chronic renal insufficiency N18.9 Proteinuria R80.9 Anemia D64.9 Partial small bowel obstruction K56.600 Metabolic acidosis E87.2
--- NOTE | 2020-05-28 15:58 | Neurology Consultation ---
Date of Consultation May 28, 2020 Assessment & Plan (1) Tremor: Chicho Moreira is a 65 yo man w/ PMH of HCV (treated), liver cirrhosis c/b known esophageal varices, CKD, HTN, HLD, DM and GERD who initially p/t [facility] with coffee ground emesis and dark stools, found to have a partial SBO, hyperkalemia and worsening renal function. Neurology consulted for patient report of new tremor. # Tremor: appears to have an action tremor, as well as asterixis. Asterixis is likely from underlying renal and liver disease. May have underlying essential tremor as well. No clear signs of parkinsonism on exam, but would be useful in obtaining prior medication history to see if he had any antipsychotics, pesticide exposure or other known risk factors for parkinsonism. -Recommend obtaining MRI brain without contrast to rule out any structural lesions to the basal ganglia or substantia nigra that could explain symptoms given the left hand tremor is worse than right hand -Recommend transitioning nadolol to propranolol to help with both esophageal varices and possible underlying essential tremor (can start with propranolol 20 mg bid and uptitrate as tolerated) -Would recheck ammonia level and titrate lactulose prn -Management of underlying liver and renal disease per primary team Thank you for this interesting consult. Plan of care discussed with primary team. Please call or text with questions. (2) Type 2 diabetes mellitus: (3) Liver cirrhosis: (4) Chronic renal insufficiency: History of Present Illness Attending Physician: Deshawn Rodriguez MD History of Present Illness Chicho Moreira is a 65 yo man w/ PMH of HCV (treated), liver cirrhosis c/b known esophageal varices, CKD, HTN, HLD, DM and GERD who initially p/t [facility] with coffee ground emesis and dark stools, found to have a partial SBO, hyperkalemia and worsening renal function. Neurology consulted for patient report of new tremor. He reports that he has had tremors in his hands for the last several months. Tremors are present only with activity such as grabbing a cup or trying to feed himself with silverware. He feels that the tremor is worse in his left hand than his right. He reports drinking a minimal amount of caffeine daily, denies any alcohol use, does not feel like tremor is associated to periods of low blood sugar. Denies any family history of tremor. He reports that he is never tried any medications specific for the tremor. On review of nephrology note this admission, his baseline creatinine was around 1.8 and over the last few months creatinine has risen to over 4. Recommend to dose medications for GFR less than 15 and to have outpatient follow-up for possible dialysis. Also seen by GI who recommended titrating lactulose to 3-4 b owel movements a day and continuing his rifaximin. Review of most recent lab work shows BUN 42, creatinine 4.14, glucose varying from the 160s to 290s, A1c 5.1, ferritin 168.4, AST mildly elevated at 39, ALT 23, alkaline phosphatase 112, most recent ammonia 100.4, albumin low at 2.2, B12 1182, folate 14.9, TSH within normal, PTH 236.3, prior UDS negative. CT head from April 2020 independently reviewed and shows mild generalized atrophy with ex vacuo dilation, mild small vessel disease, no basal ganglia pathology noted. Allergies Allergy/AdvReac Type Severity Reaction Status Date / Time No Known Allergies Allergy Unverified 05/24/20 12:12 Home Medications Home Medications Medication Instructions Recorded Confirmed Type Novolin R Flexpen 0 unit SUBCUT UD 04/28/20 04/28/20 History Vitron-C 1 tab PO QAM 04/28/20 05/24/20 History epoetin amy-epbx 10,000 unit SUBCUT WK 04/28/20 05/24/20 History nortriptyline 25 mg PO HS 04/28/20 05/24/20 History omeprazole 20 mg PO QAM 04/28/20 05/24/20 History amlodipine 10 mg PO DAILY #30 tab 04/30/20 05/24/20 Rx lactulose 30 ml PO QID #1200 ml 04/30/20 05/24/20 Rx nadolol 40 mg PO BID #60 tab 04/30/20 05/24/20 Rx aspirin [Aspir-81] 81 mg PO QAM 05/24/20 05/24/20 History bumetanide 2 mg PO QAM 05/24/20 05/24/20 History insulin NPH and regular human 55 unit SUBCUT BID 05/24/20 05/24/20 History [Novolin 70-30 FlexPen U-100] rifaximin [Xifaxan] 550 mg PO BID 05/24/20 05/24/20 History spironolactone 25 mg PO BID 05/24/20 05/24/20 History Patient History Medical History Acute hepatic encephalopathy Acute kidney injury Allergic rhinitis Anemia, unspecified Chronic kidney disease, unspecified Esophageal varices without bleeding Flatulence GERD (gastroesophageal reflux disease) HCV (hepatitis C virus) Treated Hyperlipidemia Hypertension Liver cirrhosis Low back pain Metabolic acidosis Microscopic hematuria Onychomycosis Proteinuria Pruritus, unspecified Type 2 diabetes mellitus Umbilical hernia without obstruction or gangrene Social History Smoking Status: Former smoker Do You Dip or Chew Tobacco: No; Hx Alcohol Use: Yes Alcohol type: beer and hard liquor Hx Substance Use: Yes Preferred Language: Vietnamese Communication Ability: Effective Pack Changer Required: No Beliefs That Will Affect Care: None Current Living Situation: Other Current Living Situation Comment: [facility] Other Information That Helps Us Care for You: No Feels Safe at Home: Yes Assistive Devices: None Assistive Devices Comment: Uses a wheelchair at [facility] Review of Systems Review of Systems: 14 point review of systems completed and negative except as in HPI. Exam (Neuro) Physical Exam: General Exam: GEN: NAD, sitting in bed. HEENT: No conjunctival injection, no rhinorrhea. CV: RRR, no peripheral edema PULM: Nonlabored respirations on room air. Neuro Exam: MS: Awake and Alert. Oriented to person, being in a hospital, not date. Speech fluent and appropriate with mild dysarthria, no paraphasic errors. Language intact including naming, comprehension, repetition. Cognition and memory mildly impaired. Attention intact. No neglect. CN: Visual trammell full. No extinction to double simultaneous stimuli. Unable to visualize fundi on fundoscopic exam. PERRLA OU. EOMI without nystagmus. Facial sensation intact to LT. Facial muscles full and symmetric. Hearing intact to conversation. Uvula midline with symmetric palatal elevation. Shoulder shrug normal. Tongue midline. MOTOR: Decreased muscle bulk, normal muscle tone, no cogwheeling. No pronator drift. RUE strength 5/5 at deltoids, biceps, triceps, wrist flexors and extensors, and hand grasp; LUE strength 5/5 at deltoids, 5-/5 biceps/triceps, 3/5 in wrist flexors/extensors, 3/5 hand grasp. BLE strength 5-/5 at iliopsoas, hamstrings, quadriceps, tibialis anterior, and gastrocnemius bilaterally. REFLEXES: 1+ at biceps, triceps, brachioradialis, trace patella and absent Achilles bilaterally. Flexor plantar responses bilaterally. SENSORY: Intact to LT without extinction to double simultaneous stimuli. Vibration and temperature intact throughout. COORDINATION: No dysmetria or ataxia on [id number] bilaterally. Decreased speed and amplitude of finger taps bilaterally. +asterixis (worse in the left than the right hand), +fine high frequency tremor on outstretch. Did have difficulty grabbing cup and pouring water between cups. GAIT: deferred (handcuffed to the bed) Results & Data ([facility]) Vital Signs (Past 12 Hours) Vital Signs Temp Pulse Pulse Resp BP Pulse Ox 05/28/20 15:14 83 05/28/20 15:11 36.7 C 79 18 153/83 H 99 05/28/20 11:11 36.5 C 77 20 164/89 H 99 05/28/20 07:24 80 05/28/20 06:43 36.8 C 81 20 171/94 H 100 05/28/20 03:39 89 PG Care Time/CCT Total # of Minutes Spent Total Time Spent with Patient: Total time spent is greater than 50% in coordination of care (as documented) at patient's floor/unit and/or counseling patient: Coding Level of Care Code 42249 Initial Inpt Care Lvl 3 Diagnoses Tremor R25.1 Type 2 diabetes mellitus E11.9 Liver cirrhosis K74.60 Ascites presence: without ascites Hepatic cirrhosis type: unspecified hepatic cirrhosis Chronic renal insufficiency N18.9 (1) Liver cirrhosis Ascites presence: without ascites Hepatic cirrhosis type: unspecified hepatic cirrhosis Qualified Code(s): K74.60 - Unspecified cirrhosis of liver
--- NOTE | 2020-05-28 17:02 | Hospitalist Progress Note ---
Date of Service May 28, 2020 Assessment & Plan (1) Chronic renal insufficiency: CKD stage IV/V, advancing toward needing HD Cr is 4.45, it has steadily risen over the past few months last time he was admitted was April, at that time he was transferred to [place] for kidney biopsy but he says he did not get the biopsy will consult [facility] nephrology for their recommendations K improved to 4.9 after Bumex and resume his Bumex 2mg PO daily likely will need ROTARY ADJUSTER in the near future as he is not making much urine, K is high and has metabolic acidosis hold on vascular consult as Dr. Herrera thinks this can be done back at [facility] (2) Hyperkalemia: 5.6 on admission, 5.5 on 05/25 treated with Bumex and Kayexalate on 05/25 resolved, down to 4.9 today (3) Metabolic acidosis: due to worsening renal function, ESRD was started on Bicarb 650mg BID (4) Nausea & vomiting: likely etiology was partial SBO that is resolved, also had a lot of stool in colon zofran PRN (5) Partial small bowel obstruction: possible partial SBO based on CT, but he is moving bowels, tolerating diet and no vomiting diagnosed on CT scan on admission he vomited once in ED, small amount, negative for blood on testing (6) Esophageal varices without bleeding: history of varices reportedly had dark emesis at [facility]? he vomited once here, small amount, no blood on testing consult GI for their recommendations continue beta alisha, will change to propranolol to try to help with tremor would hold on NGT due to varices Protonix, change to BID (7) Type 2 diabetes mellitus: place on Lantus 10 units BID and Novolog SS since intake will be low with NPO after midnight sugars better on Lantus 15 BID and Novolog with tighter correction factor and carb ratio (8) Umbilical hernia without obstruction or gangrene: (9) GERD (gastroesophageal reflux disease): (10) Liver cirrhosis: on rifaximin and lactulose ammonia elevated 100 continue ammonia lowering agents, is having 3 bowel movements a day put on discharge instruction that he NEEDS to take lactulose and rifaximin (11) Tremor: tremor is likely some essential tremor plus some asterixis, will change to propranolol and escalate cathartic agents, Neurology wishes to have MRI brain Admission and Anticipated Discharge Date Admission Date: May 24, 2020 Phi Valentino was seen and examined in his room this afternoon. Overall his clinically stable, feels about the same, continues to be bothered by tremor or, more in left upper extremity. Neurology feels this maybe mostly essential tremor with some asterixis added in from hepatic disease Review of Systems Review of Systems: Mild distress and fatigue no headache, blurry or double vision no speech or swallowing issues no chest pain, pressure or palpitations no shortness of breath, cough or wheezes no abdominal pain, nausea or vomiting, has appropriate diarrhea from meds no dysuria, hematuria or frequency no focal joint pain or swelling no back pain, CVA tenderness or radicular pain no bruising, bleeding or rashes pt is weak has mumbling speech and some tremor no complaints of anxiety or depression. Physical Exam Physical Exam: The patient appeared well nourished and normally developed. Vital signs as documented. Head exam is normocephalic atraumatic no scleral icterus Neck is without JVD, thyromegaly, or carotid bruits. Lungs are clear to auscultation, no focal loss of breath sounds Cardiac exam, Rhythm is regular.. No murmurs, rubs or gallops. Abdominal exam reveals normal bowel sounds, soft non tender, no masses Extremities are mildly edematous and both pedal pulses are present Neurologic exam is alert and oriented, no focal loss of strength or sensation Demonstrates some intention tremor may have some bilateral hand rhythmic flapping Skin is without bruises or rashes as of some peripheral edema Psychologically is without concerns for anxiety or depression. Results & Data Results & Data ([facility]) Vital Signs (Past 12 Hours) Vital Signs Temp Pulse Pulse Resp BP Pulse Ox 05/28/20 15:14 83 05/28/20 15:11 98.1 F 79 18 153/83 H 99 05/28/20 11:11 97.7 F 77 20 164/89 H 99 05/28/20 07:24 80 05/28/20 06:43 98.2 F 81 20 171/94 H 100 PG Care Time/CCT Total # of Minutes Spent Total Time Spent with Patient: Total time spent is greater than 50% in coordination of care (as documented) at patient's floor/unit and/or counseling patient: Coding Level of Care Code 31935 Subseq Hosp Care Lvl 3 Diagnoses Chronic renal insufficiency N18.9 Hyperkalemia E87.5 Metabolic acidosis E87.2 Nausea & vomiting R11.2 Partial small bowel obstruction K56.600 Esophageal varices without bleeding I85.00 Type 2 diabetes mellitus E11.9 Umbilical hernia without obstruction or gangrene K42.9 GERD (gastroesophageal reflux disease) K21.9 Liver cirrhosis K74.60 Hepatic cirrhosis type: unspecified hepatic cirrhosis Ascites presence: without ascites Tremor R25.1 (1) Liver cirrhosis Hepatic cirrhosis type: unspecified hepatic cirrhosis Ascites presence: without ascites Qualified Code(s): K74.60 - Unspecified cirrhosis of liver
--- NOTE | 2020-05-28 20:49 | Magnetic Resonance Report ---
MRI OF THE BRAIN WITHOUT IV CONTRAST CLINICAL HISTORY: Fall. Difficulty with speech and balance. Stroke like symptoms. COMPARISON STUDY: CT of the brain dated 04/28/2020. TECHNIQUE: MRI of the brain was performed utilizing various T1 and T2-weighted sequences in the axial , sagittal, and coronal planes. IV contrast was not administered for this examination. FINDINGS: Brain parenchyma: There is age-related involutional change. Extensive confluent T2 signal abnormality is seen throughout the subcortical and periventricular white matter. There is no hemorrhage or mass effect. There is no restricted diffusion to suggest acute ischemia. Thorne-white matter differentiation is preserved. No extra-axial fluid collection is seen. The cerebellar tonsils are normal in configur ation. Ventricles, sulci, and cisterns: Prominent secondary to involutional change. Pituitary and sella: Unremarkable. Intracranial vasculature: Normal flow voids are maintained at the skull base. Orbits: The bony orbits are grossly intact. Orbital contents are normal in appearance. Sinuses and mastoids: Clear. Calvarium: Unremarkable. Cervical cord: Partially visualized cervical spinal cord is normal in morphology and signal intensity . IMPRESSION: 1. There is no hemorrhage, mass effect, or evidence of acute ischemia. 2. There is involutional change with extensive T2 signal abnormality seen throughout the subcortical and periventricular white matter. This likely represents severe microangiopathic change. In the prope r clinical setting this could also be seen with a demyelinating process such as multiple sclerosis or possibly Lyme disease. Clinical correlation will be essential. ACT 112: Negative or not required by law. Electronically signed by: Juan Antonio Gibbs M.D. 05/28/2020 8:48 PM
[2020-05-28] MEDS: PROPRANOLOL HCL 20 MG TAB PO SCH (21:06)
[2020-05-28] MEDS: NORTRIPTYLINE HCL 25 MG CAP PO SCH (21:07)
[2020-05-29] MEDS: PROPRANOLOL HCL 20 MG TAB PO SCH ×2 (08:28→12:24)
[2020-05-29] MEDS: LACTULOSE SYRUP 20 GM/30 ML UDC PO SCH ×2 (08:28→12:23)
[2020-05-29] MEDS: BUMETANIDE 1 MG TAB PO SCH (08:28)
[2020-05-29] MEDS: amLODIPine BESYLATE 5 MG TAB PO SCH (08:29)
[2020-05-29] MEDS: PANTOprazole 40 MG in SYRINGE 0 ML IV SCH (08:29)
[2020-05-29] MEDS: SODIUM BICARBONATE 650 MG TAB PO SCH (08:29)
[2020-05-29] MEDS: CALCITRIOL 0.25 MCG CAPSULE PO SCH (08:29)
[2020-05-29] MEDS: rifAXIMin 550 MG TABLET PO SCH (08:29)
--- NOTE | 2020-05-29 08:38 | Hospitalist Progress Note ---
Date of Service May 29, 2020 Assessment & Plan (1) Chronic renal insufficiency: CKD stage IV/V, advancing toward needing HD Cr is 4.45, it has steadily risen over the past few months last time he was admitted was April, at that time he was transferred to [facility] for kidney biopsy but he says he did not get the biopsy will consult [facility] nephrology for their recommendations K improved to 4.9 after Bumex and resume his Bumex 2mg PO daily likely will need ERADICATOR in the near future as he is not making much urine, K is high and has metabolic acidosis hold on vascular consult as Dr. Herrera thinks this can be done back at [facility] (2) Hyperkalemia: 5.6 on admission, 5.5 on 05/25 treated with Bumex and Kayexalate on 05/25 resolved, down to 4.9 today (3) Metabolic acidosis: due to worsening renal function, ESRD was started on Bicarb 650mg BID (4) Nausea & vomiting: likely etiology was partial SBO that is resolved, also had a lot of stool in colon zofran PRN (5) Partial small bowel obstruction: possible partial SBO based on CT, but he is moving bowels, tolerating diet and no vomiting diagnosed on CT scan on admission he vomited once in ED, small amount, negative for blood on testing (6) Esophageal varices without bleeding: history of varices reportedly had dark emesis at [facility]? he vomited once here, small amount, no blood on testing consult GI for their recommendations continue beta alisha, will change to propranolol to try to help with tremor would hold on NGT due to varices Protonix, change to BID (7) Type 2 diabetes mellitus: place on Lantus 10 units BID and Novolog SS since intake will be low with NPO after midnight sugars better on Lantus 15 BID and Novolog with tighter correction factor and carb ratio (8) Umbilical hernia without obstruction or gangrene: (9) GERD (gastroesophageal reflux disease): (10) Liver cirrhosis: on rifaximin and lactulose ammonia elevated 100 continue ammonia lowering agents, is having 3 bowel movements a day put on discharge instruction that he NEEDS to take lactulose and rifaximin (11) Tremor: tremor is likely some essential tremor plus some asterixis, will change to propranolol and escalate cathartic agents MRI brain 05/28/20 1. There is no hemorrhage, mass effect, or evidence of acute ischemia. 2. There is involutional change with extensive T2 signal abnormality seen throughout the subcortical and periventricular white matter. This likely represents severe microangiopathic change. In the proper clinical setting this could also be seen with a demyelinating process such as multiple sclerosis or possibly Lyme disease. Clinical correlation will be essential. lyme titre ordered Admission and Anticipated Discharge Date Admission Date: May 24, 2020 Results & Data Results & Data ([facility]) Vital Signs (Past 12 Hours) Vital Signs Temp Pulse Pulse Resp BP BP Pulse Ox 05/29/20 07:13 79 05/29/20 07:00 98.1 F 91 H 20 175/85 H 100 05/29/20 03:47 89 05/29/20 03:43 98.4 F 88 18 144/81 H 97 05/28/20 22:52 98.4 F 76 18 151/95 H 98 PG Care Time/CCT Total # of Minutes Spent Total Time Spent with Patient: Total time spent is greater than 50% in coordination of care (as documented) at patient's floor/unit and/or counseling patient: Coding Diagnoses Chronic renal insufficiency N18.9 Hyperkalemia E87.5 Metabolic acidosis E87.2 Nausea & vomiting R11.2 Partial small bowel obstruction K56.600 Esophageal varices without bleeding I85.00 Type 2 diabetes mellitus E11.9 Umbilical hernia without obstruction or gangrene K42.9 GERD (gastroesophageal reflux disease) K21.9 Liver cirrhosis K74.60 Hepatic cirrhosis type: unspecified hepatic cirrhosis Ascites presence: without ascites Tremor R25.1 (1) Liver cirrhosis Hepatic cirrhosis type: unspecified hepatic cirrhosis Ascites presence: without ascites Qualified Code(s): K74.60 - Unspecified cirrhosis of liver
[2020-05-29] MEDS: INSULIN ASPART 100 UNITS/ML 3 ML PEN SC SCH ×2 (08:39→12:24)
[2020-05-29] MEDS: INSULIN GLARGINE SOLOSTAR 100 UNITS/ML 3 ML PEN SC SCH (08:39)
--- NOTE | 2020-05-29 10:28 | Nephrology Progress Note ---
Date of Service May 29, 2020 Assessment & Plan (1) Acute kidney injury: Chicho admitted with partial small bowel obstruction after he presented with nausea and vomiting for few days. Renal function has been rapidly worsening over last 6 months, starting December 2018 when creatinine was 1.8 and over last more than a month creatinine has been staying around 4.4-4.5. Has high- grade proteinuria and microscopic hematuria, previous noninvasive workup including paraproteinemia workup, serology was unremarkable. No post renal obstruction. Did not have a renal biopsy. Renal function has been relatively stable over last few days, hyperkalemia resolved. volume status acceptable. BP remained elevated. -- Continue on sodium bicarbonate 650 mg twice a day -- monitor intake and output closely -- start on hydralazine 25 milligram 3 times a day -- as urine output improved, volume status acceptable and electrolyte better, no acute indication for renal replacement therapy at this time. We can continue to monitor renal function electrolyte, if he is clinically otherwise improved and stable will hold off on dialysis and dialysis can be started as needed in the outpatient setting. -- still recommend to do the biopsy as an outpatient if possible, also need to be referred to vascular as soon as possible for AV fistula placement -- continue on renal diet, low-salt and low-potassium diet, left home nephrology precaution. -- Dose medications for GFR less than 15 Will follow while inpatient (2) Hyperkalemia: (3) Chronic renal insufficiency: (4) Proteinuria: (5) Anemia: (6) Partial small bowel obstruction: (7) Metabolic acidosis: Admission and Anticipated Discharge Date Admission Date: May 24, 2020 Phi Valentino was seen and examined in his room this morning. Overall his clinically stable, feels about the same Voiding normally. No shortness of breath or chest pain. Blood pressure has been running high. Review of Systems Review of Systems: All systems reviewed & are unremarkable except as noted in HPI & below Physical Exam Constitutional: WD/WN, vitals as above well developed, well nourished and + ill appearing; no acute distress Respiratory: normal respiratory effort, lungs clear to auscultation no cough Auscultation: no crackles, no rales and no wheezes Cardiovascular: RRR, no murmur, no edema Gastrointestinal (Abdomen): normal bowel sounds, soft, nontender, no hepatosplenomegaly Percussion/Palpation: abdomen nontender, no guarding and abdomen not rigid Skin: no rashes, warm and dry Psychiatric: A+Ox3, euthymic affect Results & Data ([facility]) Vital Signs (Past 12 Hours) Vital Signs Temp Pulse Pulse Resp BP BP Pulse Ox 05/29/20 07:13 79 05/29/20 07:00 36.7 C 91 H 20 175/85 H 100 05/29/20 03:47 89 05/29/20 03:43 36.9 C 88 18 144/81 H 97 05/28/20 22:52 36.9 C 76 18 151/95 H 98 PG Care Time/CCT Total # of Minutes Spent Total Time Spent with Patient: Total time spent is greater than 50% in coordin ation of care (as documented) at patient's floor/unit and/or counseling patient: Coding Level of Care Code 21918 Subseq Hosp Care Lvl 3 Diagnoses Acute kidney injury N17.9 Hyperkalemia E87.5 Chronic renal insufficiency N18.9 Proteinuria R80.9 Anemia D64.9 Partial small bowel obstruction K56.600 Metabolic acidosis E87.2
[2020-05-29 13:14] LABS: Lyme Ab IgG w/WB Rflx Negative (Negative); Lyme Ab IgM w/WB Rflx Negative (Negative)
--- NOTE | 2020-05-29 13:47 | Neurology Progress Note ---
Date of Service May 29, 2020 Assessment & Plan (1) Tremor: Chicho Moreira is a 65 yo man w/ PMH of HCV (treated), liver cirrhosis c/b known esophageal varices, CKD, HTN, HLD, DM and GERD who initially p/t [facility] with coffee ground emesis and dark stools, found to have a partial SBO, hyperkalemia and worsening renal function. Neurology consulted for patient report of new tremor. # Tremor: appears to have an action tremor, as well as asterixis. Asterixis is likely from underlying renal and liver disease. May have underlying essential tremor as well vs functional tremor. No clear signs of parkinsonism on exam, but would be useful in obtaining prior medication history to see if he had any antipsychotics, pesticide exposure or other known risk factors for parkinsonism. -Continue propranolol 20 mg bid and uptitrate as tolerated -Would recheck ammonia level and titrate lactulose prn -Management of underlying liver and renal disease per primary team -He can follow up in the neurology clinic as needed if tremor worsens despite increased doses of propranolol Thank you for this interesting consult. Plan of care discussed with primary team. Please call or text with questions. He is stable from a neurologic standpoint for discharge back to the snf. (2) Type 2 diabetes mellitus: (3) Liver cirrhosis: (4) Chronic renal insufficiency: Admission and Anticipated Discharge Date Admission Date: May 24, 2020 Subjective NAEs overnight. MRI brain obtained and independently reviewed. Shows severe SVID with confluent T2 white matter hyperintensities. Nadolol transitioned to propranolol to see how that helps with the action portion of tremor. He does not feel that the low dose propranolol is helping at this point. Unable to have weighted silverware/utensils in the snf give safety concerns. Review of Systems Review of Systems: 14 point review of systems completed and negative except as in HPI. Results & Data ([facility]) Vital Signs (Past 12 Hours) Vital Signs Temp Pulse Pulse Resp BP BP Pulse Ox 05/29/20 11:00 36.6 C 75 20 151/82 H 100 05/29/20 07:13 79 05/29/20 07:00 36.7 C 91 H 20 175/85 H 100 05/29/20 03:47 89 05/29/20 03:43 36.9 C 88 18 144/81 H 97 Exam (Neuro) Physical Exam: General Exam: GEN: NAD, sitting in bed. HEENT: No conjunctival injection, no rhinorrhea. CV: RRR, no peripheral edema PULM: Nonlabored respirations on room air. Neuro Exam: MS: Awake and Alert. Oriented to person, being in a hospital, not date. Speech fluent and appropriate with mild dysarthria, no paraphasic errors. Language intact including naming, comprehension, repetition. Cognition and memory mildly impaired. Inattentive. No neglect. CN: Visual trammell full. No extinction to double simultaneous stimuli. Unable to visualize fundi on fundoscopic exam. PERRLA OU. EOMI without nystagmus. Facial sensation intact to LT. Facial muscles full and symmetric. Hearing intact to conversation. Uvula midline with symmetric palatal elevation. Shoulder shrug normal. Tongue midline. MOTOR: Decreased muscle bulk, normal muscle tone, no cogwheeling. No pronator drift. RUE strength 5/5 at deltoids, biceps, triceps, wrist flexors and extensors, and hand grasp; LUE strength 5/5 at deltoids, 5-/5 biceps/triceps, 3/5 in wrist flexors/extensors, 3/5 hand grasp. BLE strength 5-/5 at iliopsoas, hamstrings, quadriceps, tibialis anterior, and gastrocnemius bilaterally. REFLEXES: 1+ at biceps, triceps, brachioradialis, trace patella and absent Achilles bilaterally. Flexor plantar responses bilaterally. SENSORY: Intact to LT without extinction to double simultaneous stimuli. Vibration and temperature intact throughout. COORDINATION: No dysmetria or ataxia on [id number] bilaterally. Decreased speed and amplitude of finger taps bilaterally. +asterixis (worse in the left than the right hand), +fine high frequency tremor on outstretch. There is a tremor when he reaches to grab things but it is not consistent. GAIT: deferred (handcuffed to the bed) PG Care Time/CCT Total # of Minutes Spent Total Time Spent with Patient: Total time spent is greater than 50% in coordination of care (as documented) at patient's floor/unit and/or counseling patient: Coding Level of Care Code 91943 Subseq Hosp Care Lvl 3 Diagnoses Tremor R25.1 Type 2 diabetes mellitus E11.9 Liver cirrhosis K74.60 Ascites presence: without ascites Hepatic cirrhosis type: unspecified hepatic cirrhosis Chronic renal insufficiency N18.9 (1) Liver cirrhosis Ascites presence: without ascites Hepatic cirrhosis type: unspecified hepatic cirrhosis Qualified Code(s): K74.60 - Unspecified cirrhosis of liver
[2020-05-29] MEDS ORDERED: hydrALAZINE HCL 25 MG TAB PO SCH (14:00)
--- NOTE | 2020-05-29 14:01 | Discharge Summary ---
Date of Service May 29, 2020 Admission HPI Per Admitting Provider 65 yo male with history of cirrhosis with varices, worsening renal function with CKD stage IV/V, DM type II presents to the ED with a report of vomiting coffee grounds and dark stools. The patient is a very poor historian, he cannot tell me why he was sent here to the ED. He says he might have vomited but he denies any vomiting now. He keeps asking for a drink of water. He says he has some mild abdominal pain. He thinks he moved his bowels this morning but he cannot remember. He denies any fever/chills, he denies any chest pain or dyspnea. In the ED he was hypertensive. WBC 5k, Hb 11.3, plts 152. INR 1.2. K high at 5.6, BUN [address] of the abdomen/pelvis with possible early incomplete small bowel obstruction. No treatment given, asked for admission. Reviewed prior admission, he was admitted for worsening renal function. He was sent for renal biopsy at [facility]. Do not have records of that biopsy, unsure of reason for his worsening renal function. Principal Diagnosis Hepatic encephalopathy Chronic kidney disease stage V Tremor with cerebral atrophy Discharge Exam The patient appeared chronically ill and debilitated Vital signs as documented. Lungs are clear to auscultation and appear unlabored Cardiac exam, Rhythm is regular.. No murmurs, rubs or gallops. Abdominal exam reveals normal bowel sounds, soft non tender, no masses Extremities are mildly edematous and both pedal pulses are normal. Neurologic exam is alert and oriented, he has mumbling speech, he is some intention tremor, no focal loss of strength or sensation Skin is without bruises or rashes Psychologically is without concerns for anxiety or depression. Discharge Data Allergies Allergy/AdvReac Type Severity Reaction Status Date / Time No Known Allergies Allergy Unverified 05/24/20 12:12 Consultations 05/24/20 14:40 ED Decision to Admit Stat 05/24/20 18:35 Consult Gastroenterology Routine Consult Nephrology Routine 05/27/20 18:20 Consult Neurology Routine Ordered Studies 05/24/20 10:42 CT abd pelvis wo con Stat 05/28/20 16:00 MR brain wo con Routine Hospital Course (1) Chronic renal insufficiency: CKD stage IV/V, advancing toward needing HD Cr is 4.45, it has steadily risen over the past few months last time he was admitted was April, at that time he was transferred to [place] for kidney biopsy but he says he did not get the biopsy resume his Bumex 2mg PO daily likely will need CLINICAL PROGRAM CONSULTANT in the near future as he is not making much urine, K is high and has metabolic acidosis Nephrology is recommended vascular consultation as an outpatient for placement of AV fistula Monitoring of potassium bicarbonate and renal function as an outpatient with follow-up Dr. Hunter in 1 month's time (2) Hyperkalemia: 5.6 on admission, 5.5 on 05/25 treated with Bumex and Kayexalate on 05/25 resolved, (3) Metabolic acidosis: due to worsening renal function, ESRD was started on Bicarb 650mg BID will continue at time of discharge (4) Nausea & vomiting: likely etiology was partial SBO that is resolved, also had a lot of stool in colon zofran PRN (5) Partial small bowel obstruction: possible partial SBO based on CT, but he is moving bowels, tolerating diet and no vomiting diagnosed on CT scan on admission he vomited once in ED, small amount, negative for blood on testing No further vomiting tolerant of oral intake (6) Esophageal varices without bleeding: history of varices reportedly had dark emesis at [facility]? he vomited once here, small amount, no blood on testing consult GI for their recommendations continue beta alisha, will change to propranolol to try to help with tremor Did not place NGT due to varices Protonix, continues (7) Type 2 diabetes mellitus: Resume outpatient insulin med regimen as per the [facility] formulary (8) Umbilical hernia without obstruction or gangrene: (9) GERD (gastroesophageal reflux disease): (10) Liver cirrhosis: on rifaximin and lactulose strongly recommend these continue to be an reinforced ammonia elevated 100 continue ammonia lowering agents, is having 3 bowel movements a day put on discharge instruction that he NEEDS to take lactulose and rifaximin (11) Tremor: tremor is likely some essential tremor plus some asterixis, will change to propranolol and escalate cathartic agents MRI brain 05/28/20 1. There is no hemorrhage, mass effect, or evidence of acute ischemia. 2. There is involutional change with extensive T2 signal abnormality seen throughout the subcortical and periventricular white matter. This likely represents severe microangiopathic change. In the proper clinical setting this could also be seen with a demyelinating process such as multiple sclerosis or possibly Lyme disease. Clinical correlation will be essential. Clinically does not appear to be Lyme disease meningitis or encephalitis. lyme titre ordered Total Time Total Time Spent Total Time Spent (In Minutes): It required greater than 30 minutes to prepare this patient for discharge Discharge Plan Discharge Items [facility]position[facility] Reason For Visit: VOMITING AND DARK STOOLS Discharge Diagnosis: hepatic encephalopathy chronic kidney disease stage 5 cerebral atrophy with tremor diabetes Activity: Resume your previous activity Non-emergency contact: Primary Care Provider Call non-emergency contact if: you have any medication questions and your symptoms worsen Follow-up/Referrals: Irais POE [Primary Care Provider] - Diet: Dialysis Renal Addtl Attending Provider Instructions: This pt will eventually require renal replacement therapy. Recommendation to schedule outpt appointment with Dr Matamoros for evaluation of AV fistulae and laboratory surveillance of renal function, bicarb and potassium. perhaps weekly until the one month follow up with Dr Reddy. This pt has a tremor that is a combination of essential tremor not helped by his cerebral atrophy from small vessel disease and asterixis from his liver dysfunction, reinforcing him to take his lactulose and rifamixin to keep his ammonia down and adjusting his propranolol to help his tremor will help to reduce his tremor to allow more ease at daily ADL's. Neurolgy has recommend wrist weights or weighted silverware to help with eating but understands these may not be available in the snf Pending Studies at Discharge: No Stand-Alone Forms: My [facility] Skilled Items Patient informed of condition?: No Discharge Level of Care: Other Communicable Disease: No Discharge Prognosis: Stable Lines: None Urinary Catheter: No Medications and DC Order Prescriptions: New hydralazine 25 mg Tablet 25 mg PO TID Qty: 30 RF: 0 sodium bicarbonate 650 mg Tablet 650 mg PO BID Qty: 90 RF: 0 propranolol 20 mg Tablet 20 mg PO TID Qty: 30 RF: 0 calcitriol 0.25 mcg Capsule 0.25 mcg PO QAM Qty: 60 RF: 0 Continued nortriptyline 25 mg Capsule 25 mg PO HS RF: 0 omeprazole 20 mg Capsule,Delayed Release(Dr/Ec) 20 mg PO QAM RF: 0 Novolin R Flexpen 100 unit/mL (3 mL) Insulin Pen 0 unit SUBCUT UD RF: 0 Vitron-C 65 mg iron- 125 mg Tablet,Delayed Release (Dr/Ec) 1 tab PO QAM RF: 0 epoetin amy-epbx 10,000 unit/mL Solution 10,000 unit subcut WK RF: 0 amlodipine 10 mg tablet 10 mg PO DAILY Qty: 30 RF: 0 lactulose 20 gram/30 mL Solution 30 ml PO QID Qty: 1200 RF: 0 bumetanide 2 mg Tablet 2 mg PO QAM RF: 0 aspirin [Aspir-81] 81 mg Tablet,Delayed Release (Dr/Ec) 81 mg PO QAM RF: 0 Novolin 70-30 FlexPen U-100 100 unit/mL (70-30) Insulin Pen 55 unit SUBCUT BID RF: 0 Xifaxan 550 mg Tablet 550 mg PO BID RF: 0 Discontinued nadolol 40 mg Tablet 40 mg PO BID Qty: 60 RF: 0 spironolactone 25 mg Tablet 25 mg PO BID RF: 0 Discharge Orders: Discharge Order (Routine); Ordered 05/29/20 Ordered By: Deshawn Rodriguez Admission Data Admit Date/Time: 05/24/20 16:14 Attending Provider: Deshawn Rodriguez Admit Provider: Eduardo Hess Primary Care Provider: rIais POE Other Providers: Trevon Asif ; Jag Henderson ; Romel Fu ; Yamel Heath Coding Level of Care Code D/C Day Management >30 mins Diagnoses Chronic renal insufficiency N18.9 Hyperkalemia E87.5 Metabolic acidosis E87.2 Nausea & vomiting R11.2 Partial small bowel obstruction K56.600 Esophageal varices without bleeding I85.00 Type 2 diabetes mellitus E11.9 Umbilical hernia without obstruction or gangrene K42.9 GERD (gastroesophageal reflux disease) K21.9 Liver cirrhosis K74.60 Hepatic cirrhosis type: unspecified hepatic cirrhosis Ascites presence: without ascites Tremor R25.1
== END 2020-05-29 16:40 | DRG 683 ==
LOC: ED 10:19 → 2W 16:14 → INTOOBSV 16:14 → SUATTDRO 16:14 → 2W 18:05

== ENCOUNTER 2020-06-03 09:55 | Inpatient (IN) ==
[2020-06-03] MEDS ORDERED: SODIUM CHLORIDE 0.9% 1000ML 1,000 ML IV STA (10:42)
[2020-06-03 11:00] LABS: Eosinophils # (auto) 0.14 K/uL (0-0.5); Eosinophils % (auto) 2.3 %; Hematocrit (blood only) 28.3 % (42-52); Hemoglobin 10.2 g/dL (14.0-18.0); Lymphocytes % (auto) 29.5 %; Mean Corpuscular Volume 88.7 fL (80-100); Mean Platelet Volume 10.7 fL (7.4-10.4); Monocytes # (auto) 0.93 K/uL (0.11-0.59); Monocytes % (auto) 15.2 %; Neutrophils # (auto) 3.24 K/uL (1.4-6.5); Platelet Count 129 K/uL (130-400); RDW Coefficient of Variation 13.2 % (11.5-14.5); RDW Standard Deviation 42.9 fL (36.4-46.3); Red Blood Count 3.19 M/uL (4.7-6.1); White Blood Count 6.11 K/uL (4.8-10.8)
[2020-06-03 11:08] LABS: iSTAT Creatinine 3.5 mg/dl (0.6-1.3); iSTAT Hemoglobin 10.5 g/dl (14.0-18.0); iSTAT Ionized Calcium 1.14 mmol/l (1.12-1.32); iSTAT Potassium 3.4 mmol/L (3.3-5.0)
[2020-06-03 11:11] LABS: INR 1.2 (0.9-1.1); Prothrombin Time 12.5 Seconds (9.0-12.0)
[2020-06-03 11:23] LABS: Alanine Aminotransferase 28 U/L (12-78); Albumin Level 2.2 gm/dl (3.4-5.0); Aspartate Aminotransferase 48 U/L (15-37); BUN Creatinine Ratio 12.7 (10-20); Blood Urea Nitrogen 47 mg/dl (7-18); Calcium 8.8 mg/dl (8.5-10.1); Carbon Dioxide 22 mmol/L (21-32); Chloride 111 mmol/L (98-107); Est GFR (African American) 18.6; Est GFR (Non-African American) 16.1; Glucose 81 mg/dl (70-99); Magnesium 1.7 mg/dl (1.8-2.4); Potassium 3.4 mmol/L (3.5-5.1); Sodium 142 mmol/L (136-145)
--- NOTE | 2020-06-03 11:27 | XRay Report ---
XR chest 1V portable CLINICAL HISTORY: weakness COMPARISON STUDY: 06/09/2020 FINDINGS: The cardiac and mediastinal contours are normal. There is no evidence of focal pulmonary co nsolidation. There is no evidence of failure. No pleural effusions are visualized.[ IMPRESSION: No active disease in the chest. ACT 112: Negative or not required by law. Electronically signed by: Bryan Tolliver M.D. 06/03/2020 11:25 AM
[2020-06-03 11:32] LABS: Appearance Urine Clear (Clear); Bacteria Urine Automated Negative (Negative); Bilirubin Urine Negative (Negative); Blood Urine 1+ (Negative); Color Urine Yellow; Epithelial Cell Urine Auto >30 /lpf (0-5); Glucose Urine UA Trace (Negative); Ketones Urine Negative (Negative); Leukocyte Esterase Urine Negative (Negative); Nitrite Urine Negative (Negative); Protein Urine 3+ (Negative); Specific Gravity Urine 1.017 (1.000-1.030); Urobilinogen Urine Negative (Negative); pH Urine 5.5 (4.5-7.5)
[2020-06-03 11:33] LABS: Albumin Globulin Ratio 0.4 (0.9-2); Alkaline Phosphatase 122 U/L (45-117); Bilirubin,Total 1.1 mg/dl (0.2-1); Globulin 5.4 gm/dl (2.5-4.0); Total Protein 7.6 gm/dl (6.4-8.2); Troponin I < 0.015 ng/ml (0-0.045)
--- NOTE | 2020-06-03 11:38 | CT Scan Report ---
CT head/brain wo con CLINICAL HISTORY: Acute change in mental status COMPARISON STUDY: 05/30/2020 TECHNIQUE: Axial CT of the brain is performed from the vertex to the skull base. IV contrast was not administered for this examination. A dose lowering technique was utilized adhering to the principles of ALARA. CT DOSE: 537.48 mGy.cm FINDINGS: No intra or extra-axial mass lesions are visualized. There is no CT evidence of acute cortical infarc tion. There is no evidence of midline shift. There is no acute hemorrhage. No calvarial fractures ar e visualized. There are patchy white matter hypodensities likely on a small vessel basis. There is no evidence of pathologic ventricular dilatation. There is no evidence of acute sinusitis IMPRESSION: No acute intracranial findings ACT 112: Negative or not required by law. Electronically signed by: Bryan Tolliver M.D. 06/03/2020 11:37 AM
[2020-06-03] MEDS ORDERED: LACTULOSE SYRUP 30 GM/45 ML UDP PO STA (12:24)
--- NOTE | 2020-06-03 13:51 | History & Physical Report ---
Date of Service June 03, 2020 Assessment & Plan (1) Acute hepatic encephalopathy: Suspect secondary to lack of bowel movements and missed lactulose doses as an outpatient. Aim 2-3 bowel movements daily. Concern for partial small bowel obstruction on prior CT although no nausea and vomiting on this occasion. Lactulose enema given in ER. Continue lactulose 30ml QID. Continue rifaximin 550 mg p.o. twice daily (2) Hyperammonemia: As above. Repeat with a.m. labs. (3) Liver cirrhosis: No prior paracentesis. No prior ascites on CT taken here. Unclear why he was placed back on spironolactone. We will continue to hold this in addition to his bumex (4) GERD (gastroesophageal reflux disease): Switch omeprazole to pantoprazole as per hospital formulary. (5) Esophageal varices without bleeding: Switch nadolol to propranolol 20 mg 3 times daily as per last discharge (6) Normocytic anemia: Hgb decreased from 10/8 Hgb 13 -> 10.2 on admission. Will get serial H&H to assess for variceal bleed. (7) HCV (hepatitis C virus): Treated. Repeat viral loads taken at [facility]. Request results. (8) CKD (chronic kidney disease), stage IV: Appears to be at baseline. Needs to follow-up with nephrology for renal biopsy and vascular for possible AV fistula placement per prior nephrology note. (9) Nephrotic range proteinuria: Follow-up outpatient as above (10) Hypomagnesemia: Mg level 1.7. Start mg oxide 400 mg p.o. twice daily. (11) Type 2 diabetes mellitus: HbA1c inaccurate due to CKD, anemia and liver cirrhosis -therefore no need to repeat this. Hold outpatient Novolin 7030 regimen (55 units twice daily) Based on prior admission we will start NPH 10 to 20 units twice daily depending on BSG with NovoLog sliding scale correction and carb coverage. (12) Hypertension: Hold Bumex as no concern for hypervolemia currently. Hold spironolactone since this was discontinued on his last discharge. Continue amlodipine 10 mg p.o. every morning. Start hydralazine 25 mg 3 times daily as per last discharge summary. Volume status appears euvolemic at current time. (13) Hyperlipidemia: Noted history of this. Follow-up as outpatient. (14) Metabolic acidosis: Prior history of this. Started on sodium bicarbonate last admission. Does not appear to need this twice daily therefore will restart 650 mg p.o. daily. (15) DVT prophylaxis: If hemoglobin stable can likely start chemical prophylaxis tomorrow. Admission and Anticipated Discharge Date Admission Date: 06/03/2020 History of Present Illness Chief Complaint: Lethargy Primary Care Provider: [facility] Chicho Moreira is a 65 year old male resident at [facility] with chronic kidney disease stage IV/V and liver cirrhosis secondary to treated hepatitis C who presents to the ER due to altered mental state. Concern for altered mental state and lethargy per senior care staff today. The patient is unable to give any history. He is alert but disorientated/non-cooperative. Denies any pain, nausea, vomiting. Unable to tell me when his last bowel movement was. I remember the patient from his admission in early April. At that time he was alert and orientated but reported to be more lethargic at that time. He is currently further off that baseline. He was admitted from April 28-2019 and subsequently transferred to [facility] for further work-up due to concern he may need hemodialysis at that time. He was significantly dry on admission likely from overdiuresis. He was admitted at [facility] from May 01-2019 and stabilized renal function and encephalopathy improved with lactulose. Recommended outpatient follow-up including renal biopsy. Nephrotic range proteinuria with subsequent serum immunofixation normal. He was readmitted at [facility] from May 24-2019 with similar lethargy and altered mental state concerns. At that time he he was diagnosed with acute hepatic encephalopathy but was also hypoglycemic and hypokalemic with concern for partial small bowel obstruction on CT. Ultimately discharged with holding his spironolactone, switching nadolol to propranolol and starting hydralazine 25mg PO TID although none of these changes were noted on his recent senior care medications. Per senior care medication records he refused the lactulose on three occasions 1-2 days ago. Xifaxan held 2 days ago for 1 dose for unknown reason. Allergies Allergy/AdvReac Type Severity Reaction Status Date / Time No Known Allergies Allergy Unverified 05/30/20 10:42 Home Medications Home Medications Medication Instructions Recorded Confirmed Type Novolin R Flexpen 0 unit SUBCUT UD PRN 04/28/20 06/03/20 History Vitron-C 1 tab PO QAM 04/28/20 06/03/20 History epoetin amy-epbx 10,000 unit SUBCUT TH 04/28/20 06/03/20 History nortriptyline 25 mg PO HS 04/28/20 06/03/20 History omeprazole 20 mg PO QAM 04/28/20 06/03/20 History lactulose 30 ml PO QID #1200 ml 04/30/20 06/03/20 Rx Novolin 70-30 FlexPen U-100 55 unit SUBCUT BID 05/24/20 06/03/20 History Xifaxan 550 mg PO BID 05/24/20 06/03/20 History aspirin 81 mg PO QAM 05/24/20 06/03/20 History bumetanide 2 mg PO QAM 05/24/20 06/03/20 History nadolol 40 mg PO BID 05/30/20 06/03/20 History spironolactone 50 mg PO BID 05/30/20 06/03/20 History amlodipine 10 mg PO QAM 06/03/20 06/03/20 History Past Med/Surg History Medical History (Updated 06/04/20 @ 17:12 by Kamille Azar MD) Acute hepatic encephalopathy Acute kidney injury Allergic rhinitis Anemia, unspecified Chronic kidney disease, unspecified Esophageal varices without bleeding Flatulence GERD (gastroesophageal reflux disease) HCV (hepatitis C virus) Treated Hyperlipidemia Hypertension Liver cirrhosis Low back pain Metabolic acidosis Microscopic hematuria Onychomycosis Partial small bowel obstruction Proteinuria Pruritus, unspecified Type 2 diabetes mellitus Umbilical hernia without obstruction or gangrene Social History Smoking Status: Former smoker Hx Alcohol Use: Yes Alcohol type: beer and hard liquor Hx Substance Use: Yes Preferred Language: Citizen Of [place] Communication Ability: Effective [employer] Required: No Beliefs That Will Affect Care: None Current Living Situation: Other Current Living Situation Comment: Prisoner at [facility] Other Information That Helps Us Care for You: No Feels Safe at Home: Yes Assistive Devices: None Assistive Devices Comment: uses a wheelchair at [facility] Review of Systems Review of Systems: Unobtainable due to cognitive status Physical Exam Constitutional: well developed, + acute distress (Agitated), + obese, + altered mental status, + malnourished and + edematous Eyes: PERRL, conjunctivae normal, anicteric sclerae ENMT: Ears: no external ear abnormality Nose: no external nose abnormality Neck: trachea midline, no thyromegaly Respiratory: normal respiratory effort; no respiratory distress, no labored breathing and does not use accessory muscles Auscultation: + diminished lung sounds (Throughout bilaterally); no crackles, no rales, no rhonchi and no wheezes Cardiovascular: Rate/Rhythm: regular rate and regular rhythm Heart Sounds: no murmur Extremities: + edema (2+ to knees b/l equal) Gastrointestinal (Abdomen): Inspection/Auscultation: + abdomen distended and normal bowel sounds Percussion/Palpation: abdomen soft; abdomen nontender, no guarding and abdomen not rigid Musculoskeletal: no cyanosis or clubbing, extremities motor strength 5/5 Skin: no rashes, warm and dry Neurologic: moves all extremities, awake and + confused; no focal motor deficits Unable to assess for asterixis due to patient cooperation Psychiatric: Orientation: alert; + not oriented x 3 (Unable to assess due to patient cooperation) Eye Contact: + poor eye contact Motor Behavior: + psychomotor agitation Affect: + irritable affect Genitourinary: no CVA tenderness Results & Data Results & Data ([facility]) Vital Signs (Past 12 Hours) Vital Signs Temp Pulse Resp BP Pulse Ox 06/03/20 13:20 102 H 17 06/03/20 13:10 104 H 18 06/03/20 13:01 103 H 17 187/107 H 06/03/20 13:00 101 H 18 06/03/20 12:50 100 H 16 100 06/03/20 12:40 95 H 17 99 06/03/20 12:34 96 H 15 99 06/03/20 12:33 98 H 17 149/112 H 100 06/03/20 12:30 100 H 11 L 06/03/20 12:20 106 H 18 06/03/20 12:10 95 H 16 06/03/20 12:01 98 H 15 06/03/20 12:00 94 H 20 174/114 H 06/03/20 11:50 97 H 20 100 06/03/20 11:48 96 H 17 186/113 H 100 06/03/20 11:40 97 H 18 100 06/03/20 11:37 97 H 20 100 06/03/20 11:20 97 H 18 06/03/20 11:11 99 06/03/20 11:10 112 H 18 06/03/20 11:01 110 H 22 181/92 H 06/03/20 11:00 102 H 25 H 06/03/20 10:50 92 H 17 06/03/20 10:40 94 H 17 100 06/03/20 10:31 92 H 13 99 06/03/20 10:30 93 H 18 194/114 H 99 06/03/20 10:20 94 H 20 06/03/20 10:10 98 H 17 100 06/03/20 10:06 99 H 18 182/109 H 99 06/03/20 10:05 36.8 C 98 H 18 182/109 H 100 06/03/20 10:04 100 H 16 180/131 H [address] head/brain wo con IMPRESSION: No acute intracranial findings XR chest 1V portable IMPRESSION: No active disease in the chest. ECG Indication: altered mental status Rate (beats per minute): 99 Rhythm: normal sinus Findings: + nonspecific-ST abn and + prolonged QT (QTc 495 ms) Comparison ECG Date: from (May 30, 2020) Change: no significant change Code Status & VTE Plan Code Status Full VTE Prophylaxis Plan VTE Prophylaxis will be ordered: No PG Care Time/CCT Total # of Minutes Spent Total Time Spent with Patient: Total time spent is greater than 50% in coordination of care (as documented) at patient's floor/unit and/or counseling patient: Coding Level of Care Code 85818 Initial Inpt Care Lvl 3 Diagnoses Acute hepatic encephalopathy K72.00 Hyperammonemia E72.20 Liver cirrhosis K74.60 Ascites presence: without ascites Hepatic cirrhosis type: unspecified hepatic cirrhosis GERD (gastroesophageal reflux disease) K21.9 Esophageal varices without bleeding I85.00 Normocytic anemia D64.9 HCV (hepatitis C virus) B19.20 CKD (chronic kidney disease), stage IV N18.4 Nephrotic range proteinuria R80.9 Hypomagnesemia E83.42 Type 2 diabetes mellitus E11.9 Hypertension I10 Hyperlipidemia E78.5 Metabolic acidosis E87.2 DVT prophylaxis Z29.9 (1) Liver cirrhosis Ascites presence: without ascites Hepatic cirrhosis type: unspecified hepatic cirrhosis Qualified Code(s): K74.60 - Unspecified cirrhosis of liver
[2020-06-03] MEDS ORDERED: ONDANSETRON INJ 2 MG/ML 2 ML VIAL IV PRN (14:42)
[2020-06-03] MEDS ORDERED: hydrALAZINE HCL 20 MG/ML VIAL IV PRN (14:42)
--- NOTE | 2020-06-03 16:09 | Electrocardiogram Report ---
Test Reason : Blood Pressure : / mmHG Vent. Rate : 099 BPM Atrial Rate : 099 BPM P-R Int : 130 ms QRS Dur : 086 ms QT Int : 386 ms P-R-T Axes : 061 042 027 degrees QTc Int : 495 ms Normal sinus rhythm with sinus arrhythmia Nonspecific ST abnormality Prolonged QT Abnormal ECG When compared with ECG of 30-MAY-2020 10:01, Nonspecific T wave abnormality no longer evident in Anterior leads Confirmed by Ariel Hazel ([id number]) on 06/03/2020 4:09:26 PM Referred By: [facility] POE Confirmed By:Ariel Hazel
[2020-06-03] MEDS: LACTULOSE SYRUP 20 GM/30 ML UDC PO SCH ×2 (16:23→21:17)
--- NOTE | 2020-06-03 18:38 | Emergency Department Note ---
History of Present Illness General Chief complaint: Illness Stated complaint: UNCONSCIOUS Time Seen by Provider: 06/03/20 10:07 Source: RN notes reviewed, old records reviewed and other ([facility] records) Mode of arrival: other ([facility] transport) Limitations: altered mental status History of Present Illness Provider complaint: Altered mental status, medication noncompliance Maximum Pain Intensity: 0 This patient is a 65-year-old male who presents emergency department with complaints of altered mental status by long term medical staff. Patient has a known history of cirrhosis of the liver and hyperammonemia. Patient also has a history of end-stage renal disease and congestive heart failure. Patient apparently has not been compliant with his medications. He has previously been sent out for a renal biopsy to [facility] but per previous records this was not completed. He is not a dialysis patient currently. The only history available currently is from medical records. Home Medications Home Medications Medication Instructions Recorded Confirmed Type Novolin R Flexpen 0 unit SUBCUT UD PRN 04/28/20 06/03/20 History Vitron-C 1 tab PO QAM 04/28/20 06/03/20 History epoetin amy-epbx 10,000 unit SUBCUT TH 04/28/20 06/03/20 History nortriptyline 25 mg PO HS 04/28/20 06/03/20 History omeprazole 20 mg PO QAM 04/28/20 06/03/20 History lactulose 30 ml PO QID #1200 ml 04/30/20 06/03/20 Rx Novolin 70-30 FlexPen U-100 55 unit SUBCUT BID 05/24/20 06/03/20 History Xifaxan 550 mg PO BID 05/24/20 06/03/20 History aspirin 81 mg PO QAM 05/24/20 06/03/20 History bumetanide 2 mg PO QAM 05/24/20 06/03/20 History nadolol 40 mg PO BID 05/30/20 06/03/20 History spironolactone 50 mg PO BID 05/30/20 06/03/20 History amlodipine 10 mg PO QAM 06/03/20 06/03/20 History Allergies Allergy/AdvReac Type Severity Reaction Status Date / Time No Known Allergies Allergy Unverified 05/30/20 10:42 Past Med/Surg History Medical History (Updated 06/04/20 @ 17:12 by Kamille Azar MD) Acute hepatic encephalopathy Acute kidney injury Allergic rhinitis Anemia, unspecified Chronic kidney disease, unspecified Esophageal varices without bleeding Flatulence GERD (gastroesophageal reflux disease) HCV (hepatitis C virus) Treated Hyperlipidemia Hypertension Liver cirrhosis Low back pain Metabolic acidosis Microscopic hematuria Onychomycosis Partial small bowel obstruction Proteinuria Pruritus, unspecified Type 2 diabetes mellitus Umbilical hernia without obstruction or gangrene Social History Smoking Status: Former smoker Hx Alcohol Use: Yes Alcohol type: beer and hard liquor Hx Substance Use: Yes Preferred Language: Chinese Communication Ability: Effective Client Service Associate Required: No Beliefs That Will Affect Care: None Current Living Situation: Other Current Living Situation Comment: Prisoner at [facility] [place] Other Information That Helps Us Care for You: No Feels Safe at Home: Yes Assistive Devices: None Assistive Devices Comment: uses a wheelchair at [facility] Review of Systems Unobtainable due to cognitive status and Unobtainable due to reduced consciousness Physical Exam Vital Signs Vital Signs - 24 hr 06/03/20 10:04 06/03/20 10:05 06/03/20 10:06 Temperature 36.8 C Temperature Source Oral Pulse Rate 100 H 98 H 99 H Pulse Rate from SpO2 Sensor 100 H 98 H 97 H Respiratory Rate 16 18 18 Respiratory Effort / Characteristics Non-Labored Respiratory Depth Normal Blood Pressure 180/131 H 182/109 H 182/109 H Blood Pressure Mean 161 133 142 Pulse Oximetry 99 100 99 Oxygen Delivery Method Room Air Room Air Room Air Sepsis Recent Fever Within 48 Hours No Sepsis New/Unexplained Change in Mental Status N/A Sepsis Action Taken by Nursing No Action Required 06/03/20 10:10 06/03/20 10:20 06/03/20 10:30 Temperature Temperature Source Pulse Rate 98 H 94 H 93 H Pulse Rate from SpO2 Sensor 101 H 96 H Respiratory Rate 17 20 18 Respiratory Effort / Characteristics Respiratory Depth Blood Pressure 194/114 H Blood Pressure Mean 140 Pulse Oximetry 100 99 Oxygen Delivery Method Room Air Room Air Room Air Sepsis Recent Fever Within 48 Hours Sepsis New/Unexplained Change in Mental Status Sepsis Action Taken by Nursing 06/03/20 10:31 06/03/20 10:40 06/03/20 10:50 Temperature Temperature Source Pulse Rate 92 H 94 H 92 H Pulse Rate from SpO2 Sensor 93 H 95 H Respiratory Rate 13 17 17 Respiratory Effort / Characteristics Respiratory Depth Blood Pressure Blood Pressure Mean Pulse Oximetry 99 100 Oxygen Delivery Method Room Air Sepsis Recent Fever Within 48 Hours Sepsis New/Unexplained Change in Mental Status Sepsis Action Taken by Nursing 06/03/20 11:00 06/03/20 11:01 06/03/20 11:10 Temperature Temperature Source Pulse Rate 102 H 110 H 112 H Pulse Rate from SpO2 Sensor Respiratory Rate 25 H 22 18 Respiratory Effort / Characteristics Respiratory Depth Blood Pressure 181/92 H Blood Pressure Mean 141 Pulse Oximetry Oxygen Delivery Method Sepsis Recent Fever Within 48 Hours Sepsis New/Unexplained Change in Mental Status Sepsis Action Taken by Nursing 06/03/20 11:11 06/03/20 11:20 06/03/20 11:37 Temperature Temperature Source Pulse Rate 97 H 97 H Pulse Rate from SpO2 Sensor 97 H Respiratory Rate 18 20 Respiratory Effort / Characteristics Respiratory Depth Blood Pressure Blood Pressure Mean Pulse Oximetry 99 100 Oxygen Delivery Method Room Air Sepsis Recent Fever Within 48 Hours Sepsis New/Unexplained Change in Mental Status Sepsis Action Taken by Nursing 06/03/20 11:40 06/03/20 11:48 06/03/20 11:50 Temperature Temperature Source Pulse Rate 97 H 96 H 97 H Pulse Rate from SpO2 Sensor 97 H 98 H 99 H Respiratory Rate 18 17 20 Respiratory Effort / Characteristics Respiratory Depth Blood Pressure 186/113 H Blood Pressure Mean 160 Pulse Oximetry 100 100 100 Oxygen Delivery Method Room Air Room Air Sepsis Recent Fever Within 48 Hours Sepsis New/Unexplained Change in Mental Status Sepsis Action Taken by Nursing 06/03/20 12:00 06/03/20 12:01 06/03/20 12:10 Temperature Temperature Source Pulse Rate 94 H 98 H 95 H Pulse Rate from SpO2 Sensor Respiratory Rate 20 15 16 Respiratory Effort / Characteristics Respiratory Depth Blood Pressure 174/114 H Blood Pressure Mean 129 Pulse Oximetry Oxygen Delivery Method Room Air Room Air Room Air Sepsis Recent Fever Within 48 Hours Sepsis New/Unexplained Change in Mental Status Sepsis Action Taken by Nursing 06/03/20 12:20 06/03/20 12:30 06/03/20 12:33 Temperature Temperature Source Pulse Rate 106 H 100 H 98 H Pulse Rate from SpO2 Sensor 97 H Respiratory Rate 18 11 L 17 Respiratory Effort / Characteristics Respiratory Depth Blood Pressure 149/112 H Blood Pressure Mean 115 Pulse Oximetry 100 Oxygen Delivery Method Room Air Sepsis Recent Fever Within 48 Hours Sepsis New/Unexplained Change in Mental Status Sepsis Action Taken by Nursing 06/03/20 12:34 06/03/20 12:40 06/03/20 12:50 Temperature Temperature Source Pulse Rate 96 H 95 H 100 H Pulse Rate from SpO2 Sensor 98 H 97 H 100 H Respiratory Rate 15 17 16 Respiratory Effort / Characteristics Respiratory Depth Blood Pressure Blood Pressure Mean Pulse Oximetry 99 99 100 Oxygen Delivery Method Room Air Room Air Room Air Sepsis Recent Fever Within 48 Hours Sepsis New/Unexplained Change in Mental Status Sepsis Action Taken by Nursing 06/03/20 13:00 06/03/20 13:01 06/03/20 13:10 Temperature Temperature Source Pulse Rate 101 H 103 H 104 H Pulse Rate from SpO2 Sensor Respiratory Rate 18 17 18 Respiratory Effort / Characteristics Respiratory Depth Blood Pressure 187/107 H Blood Pressure Mean 140 Pulse Oximetry Oxygen Delivery Method Sepsis Recent Fever Within 48 Hours Sepsis New/Unexplained Change in Mental Status Sepsis Action Taken by Nursing 06/03/20 13:20 06/03/20 13:30 06/03/20 13:31 Temperature Temperature Source Pulse Rate 102 H 96 H 97 H Pulse Rate from SpO2 Sensor Respiratory Rate 17 20 15 Respiratory Effort / Characteristics Respiratory Depth Blood Pressure 191/110 H Blood Pressure Mean 140 Pulse Oximetry Oxygen Delivery Method Sepsis Recent Fever Within 48 Hours Sepsis New/Unexplained Change in Mental Status Sepsis Action Taken by Nursing 06/03/20 13:40 Temperature Temperature Source Pulse Rate 95 H Pulse Rate from SpO2 Sensor Respiratory Rate 17 Respiratory Effort / Characteristics Respiratory Depth Blood Pressure Blood Pressure Mean Pulse Oximetry Oxygen Delivery Method Sepsis Recent Fever Within 48 Hours Sepsis New/Unexplained Change in Mental Status Sepsis Action Taken by Nursing Vital signs reviewed. Noted to be hypertensive and slightly tachycardic General: Chronically ill-appearing 65-year-old male, altered and somnolent. HEENT: No scleral icterus, PERRLA, neck supple. Atraumatic. Cardiovascular: Regular rate and rhythm, no extra sounds. Pulmonary: Clear to auscultation bilaterally, normal work of breathing. Abdomen: Soft, nontender, nondistended, positive bowel sounds. Musculoskeletal: Atraumatic, no peripheral edema. GI: Normal rectal mucosa, guaiac negative brown stool Neurologic: Patient somnolent but arousable. Confused. Mutters with some periodic agitiation. Skin: Warm, dry, no rash Course Administered Medications Amlodipine Besylate ([facility]ipine Besylate 5 Mg Tab) [facility] Stop: 07/04/20 08:59 Last Admin: 10/13/20 07:53 Dose: 10 mg Documented by: [id number] Hydralazine HCl (Hydralazine Hcl 25 Mg Tab) 25 mg PO TID [facility] Stop: 07/04/20 08:59 Last Admin: 06/04/20 12:32 Dose: 25 mg Documented by: [id number] Admin: 06/04/20 07:54 Dose: 25 mg Documented by: [id number] Insulin Aspart (Insulin Aspart 100 Units/Ml 3 Ml Pen) 0 units SC ACHS [facility] Stop: 07/04/20 07:29 Last Admin: 06/04/20 12:32 Dose: 9 units Documented by: [id number] Cosigned by: [id number] Admin: 06/04/20 07:51 Dose: 7 units Documented by: [id number] Cosigned by: [id number] Insulin Human NPH (Insulin Human Nph) 10 - 20 units SC BID [facility] Stop: 07/03/20 23:29 Last Admin: 06/04/20 07:55 Dose: 10 units Documented by: [id number] Cosigned by: [id number] Admin: 06/04/20 00:30 Dose: 10 units Documented by: [id number] Cosigned by: [id number] Magnesium Oxide (Magnesium Oxide 400 Mg Tab) 400 mg PO BID [facility] Stop: 07/03/20 20:59 Last Admin: 06/04/20 07:53 Dose: 400 mg Documented by: [id number] Admin: 06/03/20 21:16 Dose: 400 mg Documented by: [id number] Nortriptyline HCl (Nortriptyline Hcl 25 Mg Cap) 25 mg PO HS [facility] Stop: 07/03/20 20:59 Last Admin: 06/03/20 21:16 Dose: 25 mg Documented by: [id number] Pantoprazole Sodium (Pantoprazole 40 Mg Tab) [facility] Protocol Stop: 07/04/20 08:59 Last Admin: 06/04/20 07:53 Dose: 40 mg Documented by: [id number] Propranolol HCl (Propranolol Hcl 20 Mg Tab) 20 mg PO TID [facility] Stop: 07/04/20 08:59 Last Admin: 06/04/20 12:33 Dose: 20 mg Documented by: [id number] Admin: 06/04/20 07:55 Dose: 20 mg Documented by: [id number] Rifaximin (Rifaximin 550 Mg Tablet) 550 mg PO BID [facility] Stop: 07/03/20 20:59 Last Admin: 06/04/20 07:51 Dose: 550 mg Documented by: [id number] Admin: 06/03/20 21:17 Dose: 550 mg Documented by: [id number] Sodium Bicarbonate (Sodium Bicarbonate 650 Mg Tab) 650 mg PO QAM [facility] Stop: 07/04/20 08:59 Last Admin: 06/04/20 07:54 Dose: 650 mg Documented by: [id number] Discontinued Medications Sodium Chloride (Nss 1000ml) 1,000 mls @ 125 mls/hr IV .Q8H STA Stop: 06/03/20 18:41 Last Infusion: 06/03/20 14:58 Dose: 0 mls/hr Documented by: [id number] Admin: 06/03/20 11:13 Dose: 125 mls/hr Documented by: [id number] Lactulose (Lactulose Syrup 30 Gm/45 Ml Udp) 60 gm PO NOW STA Stop: 06/03/20 12:25 Last Admin: 06/03/20 13:28 Dose: 60 gm Documented by: [id number] Lactulose (Lactulose Syrup 20 Gm/30 Ml Udc) 20 gm PO QID [facility] Stop: 07/03/20 16:59 Last Admin: 06/04/20 12:32 Dose: 20 gm Documented by: [id number] Admin: 06/04/20 07:53 Dose: 20 gm Documented by: [id number] Admin: 06/03/20 21:17 Dose: 20 gm Documented by: [id number] Admin: 06/03/20 16:23 Dose: 20 gm Documented by: [id number] Nadolol (Nadolol 40 Mg Tab) 40 mg PO BID [facility] Stop: 07/03/20 20:59 Last Admin: 06/03/20 21:16 Dose: 40 mg Documented by: [id number] Critical Care Time Critical Care Time: Yes Total Critical Care Time: 32 I have personally spent greater than 32 minutes of critical care time in the direct management of this patient. This includes bedside care, interpretation of diagnostic studies, and testing, discussion with consultants, patient, and family members, and other required patient management activities. This 32 minutes is in excess of all separately billable procedures. Medical Decision Making Differential Diagnosis Differential diagnosis: Infection, dehydration, metabolic abnormality, hypo /hyperglycemia, electrolyte disturbance, anemia, hypoxia, cardiac sources, intracerebral event, toxicologic, neurologic, as well as other pathologies. Medical Records Attestation: I reviewed the patient's medical records. Home Medications Current Medication List: was personally reviewed by me Laboratory Data Attestation: I reviewed the patient's lab results. Result diagrams: 06/04/20 06:16 06/04/20 07:31 Lab Results 06/03/20 06/03/20 06/03/20 Range/Units 10:07 10:39 10:39 WBC (4.8-10.8) K/uL RBC (4.7-6.1) M/uL Hgb (14.0-18.0) g/dL POC Hgb (14.0-18.0) g/dl Hct (42-52) % POC Hct (42-52) % MCV (80-100) fL MCH (25-34) pg MCHC (32-36) g/dL RDW Std Deviation (36.4-46.3) fL RDW Coeff of Kianna (11.5-14.5) % Plt Count (130-400) K/uL MPV (7.4-10.4) fL Immature Gran % (Auto) % Neut % (Auto) % Lymph % (Auto) % Carver % (Auto) % Eos % (Auto) % Baso % (Auto) % Neut # (Auto) (1.4-6.5) K/uL Lymph # (Auto) (1.2-3.4) K/uL Carver # (Auto) (0.11-0.59) K/uL Eos # (Auto) (0-0.5) K/uL Baso # (Auto) (0-0.2) K/uL Immature Gran # (Auto) (0.00-0.02) K/uL PT 12.5 H (9.0-12.0) Seconds INR 1.2 H (0.9-1.1) POC Sodium (135-144) mmol/L Sodium (136-145) mmol/L POC Potassium (3.3-5.0) mmol/L Potassium (3.5-5.1) mmol/L POC Chloride (101-112) mmol/L Chloride (98-107) mmol/L Carbon Dioxide (21-32) mmol/L POC Total CO2 (24-31) mmol/L Anion Gap (3-11) POC Anion Gap (16-25) mmol/L POC BUN (7-18) mg/dl BUN (7-18) mg/dl Creatinine (0.6-1.4) mg/dl POC Creatinine (0.6-1.3) mg/dl Est Cr Clr Drug Dosing Est GFR ( Amer) Est GFR (Non-Af Amer) BUN/Creatinine Ratio (10-20) Glucose (70-99) mg/dl POC Glucose 104 H (70-99) mg/dl POC Glucose (other) (70-99) mg/dl Lactate 2.1 H* (0.4-2.0) mmol/L Calcium (8.5-10.1) mg/dl POC Ioniz Calcium Sofia (1.12-1.32) mmol/l Magnesium (1.8-2.4) mg/dl Total Bilirubin (0.2-1) mg/dl AST (15-37) U/L ALT (12-78) U/L Alkaline Phosphatase (45-117) U/L Ammonia (11-32) umol/L Troponin I (0-0.045) ng/ml Total Protein (6.4-8.2) gm/dl Albumin (3.4-5.0) gm/dl Globulin (2.5-4.0) gm/dl Albumin/Globulin Ratio (0.9-2) TSH (0.300-4.500) uIu/ml Urine Color Urine Appearance (Clear) Urine pH (4.5-7.5) Ur Specific [place] (1.000-1.030) Urine Protein (Negative) Urine Glucose (UA) (Negative) Urine Ketones (Negative) Urine Blood (Negative) Urine Nitrite (Negative) Urine Bilirubin (Negative) Urine Urobilinogen (Negative) Ur Leukocyte Esterase (Negative) Urine WBC (Auto) (0-5) /hpf Urine RBC (Auto) (0-4) /hpf U Hyaline Cast (Auto) (0-5) /lpf U Epithel Cells (Auto) (0-5) /lpf Urine Bacteria (Auto) (Negative) Ur Renal Epithelial Cell 06/03/20 06/03/20 06/03/20 Range/Units 10:39 10:39 10:39 WBC 6.11 (4.8-10.8) K/uL RBC 3.19 L (4.7-6.1) M/uL Hgb 10.2 L (14.0-18.0) g/dL POC Hgb (14.0-18.0) g/dl Hct 28.3 L (42-52) % POC Hct (42-52) % MCV 88.7 (80-100) fL MCH 32.0 (25-34) pg MCHC 36.0 (32-36) g/dL RDW Std Deviation 42.9 (36.4-46.3) fL RDW Coeff of Kianna 13.2 (11.5-14.5) % Plt Count 129 L (130-400) K/uL MPV 10.7 H (7.4-10.4) fL Immature Gran % (Auto) 0.0 % Neut % (Auto) 53.0 % Lymph % (Auto) 29.5 % Carver % (Auto) 15.2 % Eos % (Auto) 2.3 % Baso % (Auto) 0.0 % Neut # (Auto) 3.24 (1.4-6.5) K/uL Lymph # (Auto) 1.80 (1.2-3.4) K/uL Carver # (Auto) 0.93 H (0.11-0.59) K/uL Eos # (Auto) 0.14 (0-0.5) K/uL Baso # (Auto) 0.00 (0-0.2) K/uL Immature Gran # (Auto) 0.00 (0.00-0.02) K/uL PT (9.0-12.0) Seconds INR (0.9-1.1) POC Sodium (135-144) mmol/L Sodium 142 (136-145) mmol/L POC Potassium (3.3-5.0) mmol/L Potassium 3.4 L (3.5-5.1) mmol/L POC Chloride (101-112) mmol/L Chloride 111 H (98-107) mmol/L Carbon Dioxide 22 (21-32) mmol/L POC Total CO2 (24-31) mmol/L Anion Gap 9.0 (3-11) POC Anion Gap (16-25) mmol/L POC BUN (7-18) mg/dl BUN 47 H (7-18) mg/dl Creatinine 3.70 H (0.6-1.4) mg/dl POC Creatinine (0.6-1.3) mg/dl Est Cr Clr Drug Dosing Not Reportable Est GFR ( Amer) 18.6 Est GFR (Non-Af Amer) 16.1 BUN/Creatinine Ratio 12.7 (10-20) Glucose 81 (70-99) mg/dl POC Glucose (70-99) mg/dl POC Glucose (other) (70-99) mg/dl Lactate (0.4-2.0) mmol/L Calcium 8.8 (8.5-10.1) mg/dl POC Ioniz Calcium Sofia (1.12-1.32) mmol/l Magnesium 1.7 L (1.8-2.4) mg/dl Total Bilirubin 1.1 H (0.2-1) mg/dl AST 48 H (15-37) U/L ALT 28 (12-78) U/L Alkaline Phosphatase 122 H (45-117) U/L Ammonia 180.0 H (11-32) umol/L Troponin I < 0.015 (0-0.045) ng/ml Total Protein 7.6 (6.4-8.2) gm/dl Albumin 2.2 L (3.4-5.0) gm/dl Globulin 5.4 H (2.5-4.0) gm/dl Albumin/Globulin Ratio 0.4 L (0.9-2) TSH 1.420 (0.300-4.500) uIu/ml Urine Color Urine Appearance (Clear) Urine pH (4.5-7.5) Ur Specific [place] (1.000-1.030) Urine Protein (Negative) Urine Glucose (UA) (Negative) Urine Ketones (Negative) Urine Blood (Negative) Urine Nitrite (Negative) Urine Bilirubin (Negative) Urine Urobilinogen (Negative) Ur Leukocyte Esterase (Negative) Urine WBC (Auto) (0-5) /hpf Urine RBC (Auto) (0-4) /hpf U Hyaline Cast (Auto) (0-5) /lpf U Epithel Cells (Auto) (0-5) /lpf Urine Bacteria (Auto) (Negative) Ur Renal Epithelial Cell 06/03/20 06/03/20 Range/Units 10:49 11:18 WBC (4.8-10.8) K/uL RBC (4.7-6.1) M/uL Hgb (14.0-18.0) g/dL POC Hgb 10.5 L (14.0-18.0) g/dl Hct (42-52) % POC Hct 31 L (42-52) % MCV (80-100) fL MCH (25-34) pg MCHC (32-36) g/dL RDW Std Deviation (36.4-46.3) fL RDW Coeff of Kianna (11.5-14.5) % Plt Count (130-400) K/uL MPV (7.4-10.4) fL Immature Gran % (Auto) % Neut % (Auto) % Lymph % (Auto) % Carver % (Auto) % Eos % (Auto) % Baso % (Auto) % Neut # (Auto) (1.4-6.5) K/uL Lymph # (Auto) (1.2-3.4) K/uL Carver # (Auto) (0.11-0.59) K/uL Eos # (Auto) (0-0.5) K/uL Baso # (Auto) (0-0.2) K/uL Immature Gran # (Auto) (0.00-0.02) K/uL PT (9.0-12.0) Seconds INR (0.9-1.1) POC Sodium 141 (135-144) mmol/L Sodium (136-145) mmol/L POC Potassium 3.4 (3.3-5.0) mmol/L Potassium (3.5-5.1) mmol/L POC Chloride 109 (101-112) mmol/L Chloride (98-107) mmol/L Carbon Dioxide (21-32) mmol/L POC Total CO2 20 L (24-31) mmol/L Anion Gap (3-11) POC Anion Gap 17.0 (16-25) mmol/L POC BUN 42 H (7-18) mg/dl BUN (7-18) mg/dl Creatinine (0.6-1.4) mg/dl POC Creatinine 3.5 H (0.6-1.3) mg/dl Est Cr Clr Drug Dosing Est GFR ( Amer) Est GFR (Non-Af Amer) BUN/Creatinine Ratio (10-20) Glucose (70-99) mg/dl POC Glucose (70-99) mg/dl POC Glucose (other) 84 (70-99) mg/dl Lactate (0.4-2.0) mmol/L Calcium (8.5-10.1) mg/dl POC Ioniz Calcium Sofia 1.14 (1.12-1.32) mmol/l Magnesium (1.8-2.4) mg/dl Total Bilirubin (0.2-1) mg/dl AST (15-37) U/L ALT (12-78) U/L Alkaline Phosphatase (45-117) U/L Ammonia (11-32) umol/L Troponin I (0-0.045) ng/ml Total Protein (6.4-8.2) gm/dl Albumin (3.4-5.0) gm/dl Globulin (2.5-4.0) gm/dl Albumin/Globulin Ratio (0.9-2) TSH (0.300-4.500) uIu/ml Urine Color Yellow Urine Appearance Clear (Clear) Urine pH 5.5 (4.5-7.5) Ur Specific [place] 1.017 (1.000-1.030) Urine Protein 3+ H (Negative) Urine Glucose (UA) Trace H (Negative) Urine Ketones Negative (Negative) Urine Blood 1+ H (Negative) Urine Nitrite Negative (Negative) Urine Bilirubin Negative (Negative) Urine Urobilinogen Negative (Negative) Ur Leukocyte Esterase Negative (Negative) Urine WBC (Auto) 1-5 (0-5) /hpf Urine RBC (Auto) 5-10 H (0-4) /hpf U Hyaline Cast (Auto) 1-5 (0-5) /lpf U Epithel Cells (Auto) >30 H (0-5) /lpf Urine Bacteria (Auto) Negative (Negative) Ur Renal Epithelial Cell Not Reportable Imaging Data Radiologist's Impression: CT head/brain wo con CLINICAL HISTORY: Acute change in mental status COMPARISON STUDY: 05/30/2020 TECHNIQUE: Axial CT of the brain is performed from the vertex to the skull base. IV contrast was not administered for this examination. A dose lowering technique was utilized adhering to the principles of ALARA. CT DOSE: 537.48 mGy.cm FINDINGS: No intra or extra-axial mass lesions are visualized. There is no CT evidence of acute cortical infarction. There is no evidence of midline shift. There is no acute hemorrhage. No calvarial fractures are visualized. There are patchy white matter hypodensities likely on a small vessel basis. There is no evidence of pathologic ventricular dilatation. There is no evidence of acute sinusitis IMPRESSION: No acute intracranial findings ACT 112: Negative or not required by law. Electronically signed by: Bryan Tolliver M.D. 06/03/2020 11:37 AM Dictated: 06/03/20 1134 Transcribed: 06/03/20 1137 XR chest 1V portable CLINICAL HISTORY: weakness COMPARISON STUDY: 06/09/2020 FINDINGS: The cardiac and mediastinal contours are normal. There is no evidence of focal pulmonary consolidation. There is no evidence of failure. No pleural effusions are visualized.[ IMPRESSION: No active disease in the chest. ACT 112: Negative or not required by law. Electronically signed by: Bryan Tolliver M.D. 06/03/2020 11:25 AM Dictated: 06/03/201124 Transcribed: 06/03/201124 ECG Data Attestation: I personally reviewed and interpreted this ECG as follows: Indication: + altered mental status Rate (beats per minute): 99 Rhythm: + sinus with SA ECG Intervals/blocks: + Prolonged QT (495) ECG ST segments: + Nonspecific ST abnormalities ECG Findings: no PACs and no PVCs Blood Pressure Blood Pressure Findings: Elevated blood pressure Blood Pressure Disposition: further management by hospitalist JAKOB Narrative This patient was evaluated and appeared to be somnolent and in no significant distress. Vital signs are stable with a notable hypertension. Patient has been noncompliant with his medications and has known history of cirrhosis with chronic kidney disease. IV access was difficult however a right EJ was inserted by myself. Laboratory work was drawn. IV fluids were initiated and an order for cardiac monitoring was placed. The patient was noted to be in a sinus rhythm at [address] imaging of the head was performed and is negative. Chest x-ray is negative for focal lung consolidation or failure. Patient's ammonia level is 180. On my reevaluation he seemed to be somewhat more clear. A rectal exam was performed due to a hemoglobin of 10 and is negative. Patient's creatinine is noted to be 3.7 with a potassium of 3.4. Patient did not tolerate the rectal exam without becoming agitated. Due to her history of esophageal varices, NG tube placement was cautiously considered. Lactulose by mouth was ordered and thought to be the least aggravating for the patient. I did discuss the case with the hospitalist service, Dr. Asif who will evaluate the patient for further management. Impression & Plan Acute hepatic encephalopathy, Chronic kidney disease Discharge Plan Visit Data Chief Complaint: Illness Stated Complaint: UNCONSCIOUS ED Provider: Kamille Azar Discharge Problem: Acute hepatic encephalopathy, Chronic kidney disease Patient Disposition: Admitted As Inpatient Discharge Instructions Interventions: ED Discharge Assessment Last Done: 06/03/20 14:20 Discharge Problem: Chronic kidney disease Qualifiers: Chronic kidney disease stage: stage 5, not on chronic dialysis Qualified Code(s): N18.5 - Chronic kidney disease, stage 5
[2020-06-03] MEDS ORDERED: nadoloL 40 MG TAB PO SCH (21:00)
[2020-06-03] MEDS: MAGNESIUM OXIDE 400 MG TAB PO SCH (21:16)
[2020-06-03] MEDS: NORTRIPTYLINE HCL 25 MG CAP PO SCH (21:16)
[2020-06-03] MEDS: rifAXIMin 550 MG TABLET PO SCH (21:17)
[2020-06-03 21:25] LABS: Hematocrit (blood only) 34.6 % (42-52); Hemoglobin 12.5 g/dL (14.0-18.0)
[2020-06-03 21:45] LABS: Ferritin 168.3 ng/ml (8-388)
[2020-06-03] MEDS ORDERED: GLUCOSE 10 TABS/TUBE PO PRN (23:22)
[2020-06-03] MEDS ORDERED: GLUCOSE 40% GEL 15 GM TUBE PO PRN (23:22)
[2020-06-03] MEDS ORDERED: GLUCAGON FOR INJ 1 MG VIAL SQ PRN (23:22)
[2020-06-03] MEDS ORDERED: CARBOHYDRATES FOR HYPOGLYCEMIA PO PRN (23:22)
[2020-06-03] MEDS ORDERED: DEXTROSE 50% 50 ML SYRINGE IV PRN (23:22)
[2020-06-04] MEDS: INSULIN HUMAN NPH SC SCH ×3 (00:30→21:07)
[2020-06-04 06:34] LABS: Basophils # (auto) 0.03 K/uL (0-0.2); Basophils % (auto) 0.4 %; Eosinophils % (auto) 2.8 %; Hematocrit (blood only) 33.9 % (42-52); Hemoglobin 12.1 g/dL (14.0-18.0); Immature Granulocytes # (auto) 0.01 K/uL (0.00-0.02); Immature Granulocytes % (auto) 0.1 %; Lymphocytes # (auto) 2.11 K/uL (1.2-3.4); Mean Corpuscular Hemoglobin 32.4 pg (25-34); Mean Corpuscular Hgb Conc 35.7 g/dL (32-36); Mean Corpuscular Volume 90.9 fL (80-100); Mean Platelet Volume 11.2 fL (7.4-10.4); Monocytes # (auto) 1.11 K/uL (0.11-0.59); Monocytes % (auto) 15.8 %; Neutrophils # (auto) 3.57 K/uL (1.4-6.5); Neutrophils % (auto) 50.9 %; Platelet Count 150 K/uL (130-400); RDW Coefficient of Variation 13.7 % (11.5-14.5); RDW Standard Deviation 44.7 fL (36.4-46.3); Red Blood Count 3.73 M/uL (4.7-6.1); White Blood Count 7.03 K/uL (4.8-10.8)
[2020-06-04 07:14] LABS: Albumin Globulin Ratio 0.4 (0.9-2); Albumin Level 2.1 gm/dl (3.4-5.0); BUN Creatinine Ratio 13.3 (10-20); Bilirubin,Total 1.3 mg/dl (0.2-1); Calcium 9.4 mg/dl (8.5-10.1); Creatinine Clr Calc Pharmacy 22.8 ml/min; Est GFR (African American) 19.8; Est GFR (Non-African American) 17.1; Globulin 5.5 gm/dl (2.5-4.0); Total Protein 7.6 gm/dl (6.4-8.2)
[2020-06-04] MEDS: INSULIN ASPART 100 UNITS/ML 3 ML PEN SC SCH ×4 (07:51→21:06)
[2020-06-04] MEDS: rifAXIMin 550 MG TABLET PO SCH ×2 (07:51→21:06)
[2020-06-04] MEDS: PANTOprazole 40 MG TAB PO SCH (07:53)
[2020-06-04] MEDS: MAGNESIUM OXIDE 400 MG TAB PO SCH ×2 (07:53→21:06)
[2020-06-04] MEDS: LACTULOSE SYRUP 20 GM/30 ML UDC PO SCH ×2 (07:53→12:32)
[2020-06-04] MEDS: amLODIPine BESYLATE 5 MG TAB PO SCH (07:53)
[2020-06-04] MEDS: SODIUM BICARBONATE 650 MG TAB PO SCH (07:54)
[2020-06-04] MEDS: hydrALAZINE HCL 25 MG TAB PO SCH ×3 (07:54→21:06)
[2020-06-04] MEDS: PROPRANOLOL HCL 20 MG TAB PO SCH ×3 (07:55→21:06)
[2020-06-04 08:21] LABS: Potassium 3.8 mmol/L (3.5-5.1)
[2020-06-04] MEDS ORDERED: BUMETANIDE 1 MG TAB PO SCH (09:00)
[2020-06-04] MEDS ORDERED: NON-FORMULARY MEDICATION (Iron,Carbonyl-Vitamin C [Vitron-C] 1 TAB) PO SCH (09:00)
[2020-06-04] MEDS: NORTRIPTYLINE HCL 25 MG CAP PO SCH (21:06)
[2020-06-04] MEDS: LACTULOSE SYRUP 30 GM/45 ML UDP PO SCH (21:06)
--- NOTE | 2020-06-04 22:04 | Hospitalist Progress Note ---
Date of Service June 04, 2020 Assessment & Plan (1) Acute hepatic encephalopathy: Suspect secondary to lack of bowel movements and missed lactulose doses as an outpatient he is ordered Lactulose 20gm QID and Rifaximin 550mg BID he admits to refusing to take all his Lactulose ammonia down to 88 after lactulose enema on admission, mentation is clear, encephalopathy resolved will change Lactulose to 30gm TID as he is fixated on taking it 3 times a day but not 4 times a day Aim 2-3 bowel movements daily. repeat ammonia in the morning (2) Hyperammonemia: down to 88 today repeat tomorrow (3) Liver cirrhosis: No prior paracentesis. No prior ascites on CT taken here. Unclear why he was placed back on spironolactone. We will continue to hold this in addition to his bumex (4) GERD (gastroesophageal reflux disease): Switch omeprazole to pantoprazole as per hospital formulary. (5) Esophageal varices without bleeding: Switch nadolol to propranolol 20 mg 3 times daily as per last discharge (6) Normocytic anemia: Hgb stable at 12 today, no signs of bleedng (7) HCV (hepatitis C virus): Treated. Repeat viral loads taken at [facility]. Request results. (8) CKD (chronic kidney disease), stage IV: Appears to be at baseline. Needs to follow-up with nephrology for renal biopsy and vascular for possible AV fistula placement per prior nephrology note. (9) Nephrotic range proteinuria: Follow-up outpatient as above (10) Hypomagnesemia: Mg level 1.7. Start mg oxide 400 mg p.o. twice daily. (11) Type 2 diabetes mellitus: HbA1c inaccurate due to CKD, anemia and liver cirrhosis -therefore no need to repeat this. Hold outpatient Novolin 7030 regimen (55 units twice daily) Based on prior admission we will start NPH 10 to 20 units twice daily depending on BSG with NovoLog sliding scale correction and carb coverage. (12) Hypertension: Hold Bumex as no concern for hypervolemia currently. Hold spironolactone since this was discontinued on his last discharge. Continue amlodipine 10 mg p.o. every morning. Start hydralazine 25 mg 3 times daily as per last discharge summary. Volume status appears euvolemic at current time. (13) Hyperlipidemia: Noted history of this. Follow-up as outpatient. (14) Metabolic acidosis: Prior history of this. Started on sodium bicarbonate last admission. Does not appear to need this twice daily therefore will restart 650 mg p.o. daily. (15) DVT prophylaxis: SCD Admission and Anticipated Discharge Date Admission Date: June 03, 2020 Subjective patient is more alert, he is oriented and can tell accurate history he admits that he refuses doses of Lactulose at [facility], he is fixated that he does not want to take it 4 times a day we discussed cutting it back to 3 times a day, he agreed, will increase the dose to 30gm he is eating well, moving his bowels, no trouble breathing reviewed labs, ammonia down to 88, Cr is at baseline around 3.4, electrolytes stable Review of Systems Review of Systems: All systems reviewed & are unremarkable except as noted in Subjective Physical Exam Constitutional: WD/WN, vitals as above Neck: trachea midline, no thyromegaly + thick neck Respiratory: normal respiratory effort, lungs clear to auscultation Cardiovascular: RRR, no murmur, no edema Gastrointestinal (Abdomen): Inspection/Auscultation: + abdomen distended and normal bowel sounds Percussion/Palpation: abdomen soft, + hernia (umbilical) and + ascites; abdomen nontender Musculoskeletal: no cyanosis or clubbing, extremities motor strength 5/5 Skin: no rashes, warm and dry Neurologic: patellar DTR's 2+ bilat, sensation intact and PERRL, EOMI, accommodation nl, no face palsy, no dysarthria Psychiatric: A+Ox3, euthymic affect Lymphatic: no cervical or axillary lymphadenopathy Results & Data Results & Data ([facility]) Vital Signs (Past 12 Hours) Vital Signs Temp Pulse Pulse Resp BP Pulse Ox 06/04/20 19:52 36.8 C 90 20 146/80 H 99 06/04/20 16:00 84 06/04/20 15:32 36.4 C L 93 H 19 105/70 99 06/04/20 12:02 36.7 C 88 20 135/80 98 Laboratory Results Laboratory Results - last 24 hr 06/03/20 06/04/20 06/04/20 21:08 00:16 05:54 WBC RBC Hgb Hct MCV MCH MCHC RDW Std Deviation RDW Coeff of Kianna Plt Count MPV Immature Gran % (Auto) Neut % (Auto) Lymph % (Auto) [place] % (Auto) Eos % (Auto) Baso % (Auto) Neut # (Auto) Lymph # (Auto) [place] # (Auto) Eos # (Auto) Baso # (Auto) Immature Gran # (Auto) Sodium 139 Potassium Chloride 111 H Carbon Dioxide 21 Anion Gap 7.0 BUN 47 H Creatinine 3.52 H Est Cr Clr Drug Dosing 22.8 Est GFR ( Amer) 19.8 Est GFR (Non-Af Amer) 17.1 BUN/Creatinine Ratio 13.3 Glucose 93 POC Glucose 116 H Calcium 9.4 Total Bilirubin 1.3 H AST ALT 32 Alkaline Phosphatase 109 Ammonia Total Protein 7.6 Albumin 2.1 L Globulin 5.5 H Albumin/Globulin Ratio 0.4 L Blood Type O Positive Antibody Screen NEGATIVE 06/04/20 06/04/20 06/04/20 06:16 06:22 07:31 WBC 7.03 RBC 3.73 L Hgb 12.1 L Hct 33.9 L MCV 90.9 MCH 32.4 MCHC 35.7 RDW Std Deviation 44.7 RDW Coeff of Kianna 13.7 Plt Count 150 MPV 11.2 H Immature Gran % (Auto) 0.1 Neut % (Auto) 50.9 Lymph % (Auto) 30.0 [place] % (Auto) 15.8 Eos % (Auto) 2.8 Baso % (Auto) 0.4 Neut # (Auto) 3.57 Lymph # (Auto) 2.11 [place] # (Auto) 1.11 H Eos # (Auto) 0.20 Baso # (Auto) 0.03 Immature Gran # (Auto) 0.01 Sodium Potassium 3.8 Chloride Carbon Dioxide Anion Gap BUN Creatinine Est Cr Clr Drug Dosing Est GFR ( Amer) Est GFR (Non-Af Amer) BUN/Creatinine Ratio Glucose POC Glucose Calcium Total Bilirubin AST 45 H ALT Alkaline Phosphatase Ammonia 88.7 H Total Protein Albumin Globulin Albumin/Globulin Ratio Blood Type Antibody Screen 06/04/20 06/04/20 06/04/20 07:34 11:08 16:21 WBC RBC Hgb Hct MCV MCH MCHC RDW Std Deviation RDW Coeff of Kianna Plt Count MPV Immature Gran % (Auto) Neut % (Auto) Lymph % (Auto) [place] % (Auto) Eos % (Auto) Baso % (Auto) Neut # (Auto) Lymph # (Auto) [place] # (Auto) Eos # (Auto) Baso # (Auto) Immature Gran # (Auto) Sodium Potassium Chloride Carbon Dioxide Anion Gap BUN Creatinine Est Cr Clr Drug Dosing Est GFR ( Amer) Est GFR (Non-Af Amer) BUN/Creatinine Ratio Glucose POC Glucose 105 H 151 H 206 H Calcium Total Bilirubin AST ALT Alkaline Phosphatase Ammonia Total Protein Albumin Globulin Albumin/Globulin Ratio Blood Type Antibody Screen 06/04/20 20:59 WBC RBC Hgb Hct MCV MCH MCHC RDW Std Deviation RDW Coeff of Kianna Plt Count MPV Immature Gran % (Auto) Neut % (Auto) Lymph % (Auto) [place] % (Auto) Eos % (Auto) Baso % (Auto) Neut # (Auto) Lymph # (Auto) [place] # (Auto) Eos # (Auto) Baso # (Auto) Immature Gran # (Auto) Sodium Potassium Chloride Carbon Dioxide Anion Gap BUN Creatinine Est Cr Clr Drug Dosing Est GFR ( Amer) Est GFR (Non-Af Amer) BUN/Creatinine Ratio Glucose POC Glucose 189 H Calcium Total Bilirubin AST ALT Alkaline Phosphatase Ammonia Total Protein Albumin Globulin Albumin/Globulin Ratio Blood Type Antibody Screen Medications Administered Current Inpatient Medications Amlodipine Besylate (Amlodipine Besylate 5 Mg Tab) 10 mg PO QAM [facility] Stop: 07/04/20 08:59 Last Admin: 06/04/20 07:53 Dose: 10 mg Documented by: Dextrose (Dextrose 50% 50 Ml Syringe) 25 - 50 ml IV UD PRN; Protocol PRN Reason: Hypoglycemia Protocol Stop: 07/03/20 23:21 Glucagon (Glucagon For Inj 1 Mg Vial) 1 mg SQ UD PRN; Protocol PRN Reason: Hypoglycemia Protocol Stop: 07/03/20 23:21 Glucose (Glucose 10 Tabs/Tube) 4 - 8 tabs PO UD PRN; Protocol PRN Reason: Hypoglycemia Protocol Stop: 07/03/20 23:21 Glucose (Glucose 40% Gel 15 Gm Tube) 15 - 30 gm PO UD PRN; Protocol PRN Reason: Hypoglycemia Protocol Stop: 07/03/20 23:21 Hydralazine HCl (Hydralazine Hcl 20 Mg/Ml Vial) 10 mg IV Q4H PRN PRN Reason: sBP > 180 Stop: 07/03/20 14:41 Hydralazine HCl (Hydralazine Hcl 25 Mg Tab) 25 mg PO TID [facility] Stop: 07/04/20 08:59 Last Admin: 06/04/20 21:06 Dose: 25 mg Documented by: Insulin Aspart (Insulin Aspart 100 Units/Ml 3 Ml Pen) 0 units SC ACHS [facility] Stop: 07/04/20 07:29 Last Admin: 06/04/20 21:06 Dose: 4 units Documented by: Insulin Human NPH (Insulin Human Nph) 10 - 20 units SC BID [facility] Stop: 07/03/20 23:29 Last Admin: 06/04/20 21:07 Dose: 20 units Documented by: Lactulose (Lactulose Syrup 30 Gm/45 Ml Udp) 30 gm PO BID [facility] Stop: 07/04/20 20:59 Last Admin: 06/04/20 21:06 Dose: 30 gm Documented by: Magnesium Oxide (Magnesium Oxide 400 Mg Tab) 400 mg PO BID [facility] Stop: 07/03/20 20:59 Last Admin: 06/04/20 21:06 Dose: 400 mg Documented by: Miscellaneous (Carbohydrates For Hypoglycemia ) 15 - 30 gm PO UD PRN PRN Reason: Hypoglycemia Protocol Stop: 07/03/20 23:21 Nortriptyline HCl (Nortriptyline Hcl 25 Mg Cap) 25 mg PO HS [facility] Stop: 07/03/20 20:59 Last Admin: 06/04/20 21:06 Dose: 25 mg Documented by: Ondansetron HCl (Ondansetron Inj 2 Mg/Ml 2 Ml Vial) 4 mg IV Q6H PRN PRN Reason: Nausea Stop: 07/03/20 14:41 Pantoprazole Sodium (Pantoprazole 40 Mg Tab) 40 mg PO [facility]; Protocol Stop: 07/04/20 08:59 Last Admin: 06/04/20 07:53 Dose: 40 mg Documented by: Propranolol HCl (Propranolol Hcl 20 Mg Tab) 20 mg PO TID [facility] Stop: 07/04/20 08:59 Last Admin: 06/04/20 21:06 Dose: 20 mg Documented by: Rifaximin (Rifaximin 550 Mg Tablet) 550 mg PO BID [facility] Stop: 07/03/20 20:59 Last Admin: 06/04/20 21:06 Dose: 550 mg Documented by: Sodium Bicarbonate (Sodium Bicarbonate 650 Mg Tab) 650 mg PO [facility] Stop: 07/04/20 08:59 Last Admin: 06/04/20 07:54 Dose: 650 mg Documented by: PG Care Time/CCT Total # of Minutes Spent Total Time Spent with Patient: Total time spent is greater than 50% in coordination of care (as documented) at patient's floor/unit and/or counseling patient: Coding Level of Care Code 18721 Subseq Hosp Care Lvl 2 Diagnoses Acute hepatic encephalopathy K72.00 Hyperammonemia E72.20 Liver cirrhosis K74.60 Hepatic cirrhosis type: unspecified hepatic cirrhosis Ascites presence: without ascites GERD (gastroesophageal reflux disease) K21.9 Esophageal varices without bleeding I85.00 Normocytic anemia D64.9 HCV (hepatitis C virus) B19.20 CKD (chronic kidney disease), stage IV N18.4 Nephrotic range proteinuria R80.9 Hypomagnesemia E83.42 Type 2 diabetes mellitus E11.9 Hypertension I10 Hyperlipidemia E78.5 Metabolic acidosis E87.2 DVT prophylaxis Z29.9 (1) Liver cirrhosis Hepatic cirrhosis type: unspecified hepatic cirrhosis Ascites presence: without ascites Qualified Code(s): K74.60 - Unspecified cirrhosis of liver
[2020-06-05 06:31] LABS: Basophils # (auto) 0.01 K/uL (0-0.2); Basophils % (auto) 0.2 %; Eosinophils # (auto) 0.18 K/uL (0-0.5); Eosinophils % (auto) 2.9 %; Hematocrit (blood only) 31.7 % (42-52); Hemoglobin 11.3 g/dL (14.0-18.0); Immature Granulocytes # (auto) 0.01 K/uL (0.00-0.02); Immature Granulocytes % (auto) 0.2 %; Lymphocytes # (auto) 2.16 K/uL (1.2-3.4); Lymphocytes % (auto) 35.2 %; Mean Corpuscular Hemoglobin 32.2 pg (25-34); Mean Corpuscular Hgb Conc 35.6 g/dL (32-36); Mean Corpuscular Volume 90.3 fL (80-100); Mean Platelet Volume 11.1 fL (7.4-10.4); Monocytes # (auto) 1.35 K/uL (0.11-0.59); Neutrophils # (auto) 2.43 K/uL (1.4-6.5); Neutrophils % (auto) 39.5 %; Platelet Count 128 K/uL (130-400); RDW Coefficient of Variation 13.8 % (11.5-14.5); RDW Standard Deviation 44.9 fL (36.4-46.3); Red Blood Count 3.51 M/uL (4.7-6.1); White Blood Count 6.14 K/uL (4.8-10.8)
[2020-06-05 07:24] LABS: Albumin Level 2.1 gm/dl (3.4-5.0); BUN Creatinine Ratio 13.3 (10-20); Calcium 8.7 mg/dl (8.5-10.1); Creatinine Clr Calc Pharmacy 19.3 ml/min; Est GFR (African American) 16.1; Est GFR (Non-African American) 13.9; Magnesium 2.1 mg/dl (1.8-2.4); Potassium 3.8 mmol/L (3.5-5.1)
[2020-06-05 07:27] LABS: Albumin Globulin Ratio 0.4 (0.9-2); Bilirubin,Total 1.1 mg/dl (0.2-1); Globulin 5.1 gm/dl (2.5-4.0); Total Protein 7.2 gm/dl (6.4-8.2)
[2020-06-05] MEDS: LACTULOSE SYRUP 30 GM/45 ML UDP PO SCH ×2 (08:16→19:55)
[2020-06-05] MEDS: INSULIN ASPART 100 UNITS/ML 3 ML PEN SC SCH ×4 (08:20→19:56)
[2020-06-05] MEDS: INSULIN HUMAN NPH SC SCH ×2 (08:20→19:57)
[2020-06-05] MEDS: LACTULOSE 200 GM, WATER, STERILE IRRIG 700 ML, BARCODE IDENTIFIER 1 EA PR SCH ×2 (10:05→17:25)
[2020-06-05] MEDS: PANTOprazole 40 MG TAB PO SCH (10:05)
[2020-06-05] MEDS: MAGNESIUM OXIDE 400 MG TAB PO SCH ×2 (10:05→19:56)
[2020-06-05] MEDS: SODIUM BICARBONATE 650 MG TAB PO SCH (10:05)
[2020-06-05] MEDS: hydrALAZINE HCL 25 MG TAB PO SCH ×2 (10:20→14:09)
[2020-06-05] MEDS: BUMETANIDE 1 MG TAB PO SCH (10:21)
[2020-06-05] MEDS: amLODIPine BESYLATE 5 MG TAB PO SCH (10:21)
[2020-06-05] MEDS: PROPRANOLOL HCL 20 MG TAB PO SCH ×3 (10:21→19:55)
[2020-06-05] MEDS: rifAXIMin 550 MG TABLET PO SCH ×2 (10:22→19:55)
[2020-06-05] MEDS ORDERED: hydrALAZINE HCL 20 MG/ML VIAL IV STA (14:09)
--- NOTE | 2020-06-05 17:27 | Hospitalist Progress Note ---
Date of Service June 05, 2020 Assessment & Plan (1) Acute hepatic encephalopathy: Suspect secondary to lack of bowel movements and missed lactulose doses as an outpatient he is ordered Lactulose 20gm QID and Rifaximin 550mg BID he admits to refusing to take all his Lactulose at [facility] ammonia down to 88 after lactulose enema on admission, mentation was clear, encephalopathy resolved on 06/04 today his ammonia is up to 187, unclear why, he is not moving bowels frequently gave patient lactulose enema, will make them q8 no vomiting continue Lactulose to 30gm TID as he is fixated on taking it 3 times a day but not 4 times a day Aim 2-3 bowel movements daily. follow up ammonia in the morning need to discuss with physician at [facility] if this continues he will certainly come back to the hospital with encephalopathy (2) Hyperammonemia: up to 187 from 88, unclear why it went up possible that he did not take evening dose last night but that would not explain such a large jump he is definitely not moving his bowels the way he should (3) Liver cirrhosis: No prior paracentesis. No prior ascites on CT taken here has h/o varices certainly it is advanced given his hyperammonia need to discuss with physician at [facility], unclear how we can help patient and keep him out of the hospital (4) GERD (gastroesophageal reflux disease): Switch omeprazole to pantoprazole as per hospital formulary. (5) Esophageal varices without bleeding: Switch nadolol to propranolol 20 mg 3 times daily as per last discharge (6) Normocytic anemia: Hgb stable, no signs of bleedng (7) HCV (hepatitis C virus): Treated. Repeat viral loads taken at [facility]. Request results. (8) CKD (chronic kidney disease), stage IV: trending up to 4 resume Bumex for volume control Needs to follow-up with nephrology for renal biopsy and vascular for possible AV fistula placement per prior nephrology note. (9) Nephrotic range proteinuria: Follow-up outpatient as above (10) Hypomagnesemia: mg oxide 400 mg p.o. twice daily. (11) Type 2 diabetes mellitus: HbA1c inaccurate due to CKD, anemia and liver cirrhosis -therefore no need to repeat this. Hold outpatient Novolin 7030 regimen (55 units twice daily) Based on prior admission we will start NPH 10 to 20 units twice daily depending on BSG with NovoLog sliding scale correction and carb coverage. (12) Hypertension: continue Norvasc but now he is not taking medications reliably change Hydralazine to 10mg IV q8, he was on 25mg PO TID (13) Hyperlipidemia: Noted history of this. Follow-up as outpatient. (14) Metabolic acidosis: Prior history of this. Started on sodium bicarbonate last admission (15) DVT prophylaxis: SCD Admission and Anticipated Discharge Date Admission Date: June 03, 2020 Subjective patient more lethargic today, ammonia up to 187 unclear why, he was ordered his lactulose and supposedly took it RN today said he took it for her in the afternoon yesterday but she is not sure if he took it last evening he could not drink it all this morning, ordered lactulose enema this morning Cr rising to 4, electrolytes stable he is too sleepy to eat discussed with RN, will continue with lactulose enema every 8 hours Review of Systems Review of Systems: Unobtainable due to cognitive status Physical Exam Constitutional: WD/WN, vitals as above Neck: trachea midline, no thyromegaly + thick neck Respiratory: normal respiratory effort, lungs clear to auscultation Cardiovascular: RRR, no murmur, no edema Gastrointestinal (Abdomen): Inspection/Auscultation: + abdomen distended and normal bowel sounds Percussion/Palpation: abdomen soft, + hernia (umbilical) and + ascites; abdomen nontender Musculoskeletal: no cyanosis or clubbing, extremities motor strength 5/5 Skin: no rashes, warm and dry Neurologic: PERRL, EOMI, accommodation nl, no face palsy, no dysarthria + confused and + obtunded Psychiatric: Orientation: oriented to person; + not alert, + not oriented to place and + not oriented to time Lymphatic: no cervical or axillary lymphadenopathy Results & Data Results & Data ([facility]) Vital Signs (Past 12 Hours) Vital Signs Temp Pulse Resp BP BP Pulse Ox 06/05/20 15:30 36.4 C L 90 19 153/88 H 97 06/05/20 11:46 36.3 C L 84 18 165/90 H 99 06/05/20 07:26 36.4 C L 89 18 127/75 98 Laboratory Results Laboratory Results - last 24 hr 06/05/20 06/05/20 06/05/20 06:14 06:14 06:14 WBC 6.14 RBC 3.51 L Hgb 11.3 L Hct 31.7 L MCV 90.3 MCH 32.2 MCHC 35.6 RDW Std Deviation 44.9 RDW Coeff of Kianna 13.8 Plt Count 128 L MPV 11.1 H Immature Gran % (Auto) 0.2 Neut % (Auto) 39.5 Lymph % (Auto) 35.2 [place] % (Auto) 22.0 Eos % (Auto) 2.9 Baso % (Auto) 0.2 Neut # (Auto) 2.43 Lymph # (Auto) 2.16 [place] # (Auto) 1.35 H Eos # (Auto) 0.18 Baso # (Auto) 0.01 Immature Gran # (Auto) 0.01 Sodium 137 Potassium 3.8 Chloride 106 Carbon Dioxide 22 Anion Gap 9.0 BUN 56 H Creatinine 4.18 H D Est Cr Clr Drug Dosing 19.3 Est GFR ( Amer) 16.1 Est GFR (Non-Af Amer) 13.9 BUN/Creatinine Ratio 13.3 Glucose 183 H POC Glucose Calcium 8.7 Magnesium 2.1 Total Bilirubin 1.1 H AST 58 H ALT 36 Alkaline Phosphatase 121 H Ammonia 187.0 H Total Protein 7.2 Albumin 2.1 L Globulin 5.1 H Albumin/Globulin Ratio 0.4 L 06/05/20 06/05/20 06/05/20 07:29 11:32 16:13 WBC RBC Hgb Hct MCV MCH MCHC RDW Std Deviation RDW Coeff of Kianna Plt Count MPV Immature Gran % (Auto) Neut % (Auto) Lymph % (Auto) [place] % (Auto) Eos % (Auto) Baso % (Auto) Neut # (Auto) Lymph # (Auto) [place] # (Auto) Eos # (Auto) Baso # (Auto) Immature Gran # (Auto) Sodium Potassium Chloride Carbon Dioxide Anion Gap BUN Creatinine Est Cr Clr Drug Dosing Est GFR ( Amer) Est GFR (Non-Af Amer) BUN/Creatinine Ratio Glucose POC Glucose 208 H 168 H 129 H Calcium Magnesium Total Bilirubin AST ALT Alkaline Phosphatase Ammonia Total Protein Albumin Globulin Albumin/Globulin Ratio 06/05/20 19:53 WBC RBC Hgb Hct MCV MCH MCHC RDW Std Deviation RDW Coeff of Kianna Plt Count MPV Immature Gran % (Auto) Neut % (Auto) Lymph % (Auto) [place] % (Auto) Eos % (Auto) Baso % (Auto) Neut # (Auto) Lymph # (Auto) [place] # (Auto) Eos # (Auto) Baso # (Auto) Immature Gran # (Auto) Sodium Potassium Chloride Carbon Dioxide Anion Gap BUN Creatinine Est Cr Clr Drug Dosing Est GFR ( Amer) Est GFR (Non-Af Amer) BUN/Creatinine Ratio Glucose POC Glucose 128 H Calcium Magnesium Total Bilirubin AST ALT Alkaline Phosphatase Ammonia Total Protein Albumin Globulin Albumin/Globulin Ratio Medications Administered Current Inpatient Medications Amlodipine Besylate (Amlodipine Besylate 5 Mg Tab) 10 mg PO QAM [facility] Stop: 07/04/20 08:59 Last Admin: 06/05/20 10:21 Dose: Not Given Documented by: Bumetanide (Bumetanide 1 Mg Tab) 2 mg PO QAM [facility] Stop: 07/05/20 08:59 Last Admin: 06/05/20 10:21 Dose: Not Given Documented by: Lactulose 200 gm/ Sterile Water 700 ml/ BARCODE IDENTIFIER 1 ea 0 gm NC Q8H [facility] Stop: 07/05/20 08:59 Last Admin: 06/05/20 17:25 Dose: 700 gm Documented by: Dextrose (Dextrose 50% 50 Ml Syringe) 25 - 50 ml IV UD PRN; Protocol PRN Reason: Hypoglycemia Protocol Stop: 07/03/20 23:21 Glucagon (Glucagon For Inj 1 Mg Vial) 1 mg SQ UD PRN; Protocol PRN Reason: Hypoglycemia Protocol Stop: 07/03/20 23:21 Glucose (Glucose 10 Tabs/Tube) 4 - 8 tabs PO UD PRN; Protocol PRN Reason: Hypoglycemia Protocol Stop: 07/03/20 23:21 Glucose (Glucose 40% Gel 15 Gm Tube) 15 - 30 gm PO UD PRN; Protocol PRN Reason: Hypoglycemia Protocol Stop: 07/03/20 23:21 Hydralazine HCl (Hydralazine Hcl 20 Mg/Ml Vial) 10 mg IV Q4H PRN PRN Reason: sBP > 180 Stop: 07/03/20 14:41 Hydralazine HCl (Hydralazine Hcl 20 Mg/Ml Vial) 10 mg IV TID [facility] Stop: 07/05/20 20:59 Last Admin: 06/05/20 19:57 Dose: 10 mg Documented by: Insulin Aspart (Insulin Aspart 100 Units/Ml 3 Ml Pen) 0 units SC ACHS [facility] Stop: 07/04/20 07:29 Last Admin: 06/05/20 19:56 Dose: Not Given Documented by: Insulin Human NPH (Insulin Human Nph) 10 - 20 units SC BID [facility] Stop: 07/03/20 23:29 Last Admin: 06/05/20 19:57 Dose: 10 units Documented by: Lactulose (Lactulose Syrup 30 Gm/45 Ml Udp) 30 gm PO BID [facility] Stop: 07/04/20 20:59 Last Admin: 06/05/20 19:55 Dose: 30 gm Documented by: Magnesium Oxide (Magnesium Oxide 400 Mg Tab) 400 mg PO BID [facility] Stop: 07/03/20 20:59 Last Admin: 06/05/20 19:56 Dose: 400 mg Documented by: Miscellaneous (Carbohydrates For Hypoglycemia ) 15 - 30 gm PO UD PRN PRN Reason: Hypoglycemia Protocol Stop: 07/03/20 23:21 Nortriptyline HCl (Nortriptyline Hcl 25 Mg Cap) 25 mg PO HS [facility] Stop: 07/03/20 20:59 Last Admin: 06/05/20 19:55 Dose: 25 mg Documented by: Ondansetron HCl (Ondansetron Inj 2 Mg/Ml 2 Ml Vial) 4 mg IV Q6H PRN PRN Reason: Nausea Stop: 07/03/20 14:41 Pantoprazole Sodium (Pantoprazole 40 Mg Tab) 40 mg PO QAM [facility]; Protocol Stop: 07/04/20 08:59 Last Admin: 06/05/20 10:05 Dose: Not Given Documented by: Propranolol HCl (Propranolol Hcl 20 Mg Tab) 20 mg PO TID [facility] Stop: 07/04/20 08:59 Last Admin: 06/05/20 19:55 Dose: 20 mg Documented by: Rifaximin (Rifaximin 550 Mg Tablet) 550 mg PO BID [facility] Stop: 07/03/20 20:59 Last Admin: 06/05/20 19:55 Dose: 550 mg Documented by: Sodium Bicarbonate (Sodium Bicarbonate 650 Mg Tab) 650 mg PO QAM [facility] Stop: 07/04/20 08:59 Last Admin: 06/05/20 10:05 Dose: Not Given Documented by: PG Care Time/CCT Total # of Minutes Spent Total Time Spent with Patient: Total time spent is greater than 50% in coordination of care (as documented) at patient's floor/unit and/or counseling patient: Coding Level of Care Code 11507 Subseq Hosp Care Lvl 2 Diagnoses Acute hepatic encephalopathy K72.00 Hyperammonemia E72.20 Liver cirrhosis K74.60 Ascites presence: without ascites Hepatic cirrhosis type: unspecified hepatic cirrhosis GERD (gastroesophageal reflux disease) K21.9 Esophageal varices without bleeding I85.00 Normocytic anemia D64.9 HCV (hepatitis C virus) B19.20 CKD (chronic kidney disease), stage IV N18.4 Nephrotic range proteinuria R80.9 Hypomagnesemia E83.42 Type 2 diabetes mellitus E11.9 Hypertension I10 Hyperlipidemia E78.5 Metabolic acidosis E87.2 DVT prophylaxis Z29.9 (1) Liver cirrhosis Ascites presence: without ascites Hepatic cirrhosis type: unspecified hepatic cirrhosis Qualified Code(s): K74.60 - Unspecified cirrhosis of liver
[2020-06-05] MEDS: NORTRIPTYLINE HCL 25 MG CAP PO SCH (19:55)
[2020-06-05] MEDS: hydrALAZINE HCL 20 MG/ML VIAL IV SCH (19:57)
[2020-06-06] MEDS: LACTULOSE 200 GM, WATER, STERILE IRRIG 700 ML, BARCODE IDENTIFIER 1 EA PR SCH ×3 (02:38→16:04)
[2020-06-06] MEDS: rifAXIMin 550 MG TABLET PO SCH ×2 (08:15→19:43)
[2020-06-06] MEDS: BUMETANIDE 1 MG TAB PO SCH (08:16)
[2020-06-06] MEDS: MAGNESIUM OXIDE 400 MG TAB PO SCH ×2 (08:16→19:43)
[2020-06-06] MEDS: SODIUM BICARBONATE 650 MG TAB PO SCH (08:16)
[2020-06-06] MEDS: PROPRANOLOL HCL 20 MG TAB PO SCH ×3 (08:16→19:43)
[2020-06-06] MEDS: PANTOprazole 40 MG TAB PO SCH (08:17)
[2020-06-06] MEDS: amLODIPine BESYLATE 5 MG TAB PO SCH (08:17)
[2020-06-06] MEDS: hydrALAZINE HCL 20 MG/ML VIAL IV SCH (08:18)
[2020-06-06] MEDS: INSULIN ASPART 100 UNITS/ML 3 ML PEN SC SCH ×4 (08:20→19:45)
[2020-06-06] MEDS: LACTULOSE SYRUP 30 GM/45 ML UDP PO SCH ×2 (08:20→19:43)
[2020-06-06] MEDS: INSULIN HUMAN NPH SC SCH ×2 (08:21→19:43)
[2020-06-06 08:22] LABS: BUN Creatinine Ratio 14.2 (10-20); Calcium 9.5 mg/dl (8.5-10.1); Creatinine Clr Calc Pharmacy 19.2 ml/min; Est GFR (Non-African American) 13.8; Potassium 3.7 mmol/L (3.5-5.1)
--- NOTE | 2020-06-06 09:24 | Hospitalist Progress Note ---
Date of Service June 06, 2020 Assessment & Plan (1) Acute hepatic encephalopathy: Suspect secondary to lack of bowel movements and missed lactulose doses as an outpatient he is ordered Lactulose 20gm QID and Rifaximin 550mg BID he admits to refusing to take all his Lactulose at [facility] AT [facility] ammonia down to 88 after lactulose enema on admission, mentation was clear, encephalopathy resolved on 06/04 06/05 ammonia up to 187, unclear why, he is not moving bowels frequently lactulose enema ordered q8 since he was not awake enough to take Lactulose PO ammonia down to 110 on 06/06, he is now taking Lactulose will give one more enema this morning, discussed with RN continue Lactulose to 30gm TID as he is fixated on taking it 3 times a day but not 4 times a day Aim 2-3 bowel movements daily. follow up ammonia in the morning plan to call [facility] AT THE [facility] today to discuss (2) Hyperammonemia: up to 187 on 06/05, now down to 110 (3) Liver cirrhosis: No prior paracentesis. No prior ascites on CT taken here has h/o varices certainly it is advanced given his hyperammonia need to discuss with physician at [facility] AT [facility], unclear how we can help patient and keep him out of the hospital (4) GERD (gastroesophageal reflux disease): Switch omeprazole to pantoprazole as per hospital formulary. (5) Esophageal varices without bleeding: propranolol 20 mg 3 times daily as per last discharge (6) Normocytic anemia: Hgb stable on 06/05, no signs of bleeding (7) HCV (hepatitis C virus): Treated. Repeat viral loads taken at [facility]. Request results. (8) CKD (chronic kidney disease), stage IV: elevated at 4.2 continue Bumex 2mg PO daily for volume control Needs to follow-up with nephrology for renal biopsy and vascular for possible AV fistula placement per prior nephrology note. (9) Nephrotic range proteinuria: Follow-up outpatient as above (10) Hypomagnesemia: mg oxide 400 mg p.o. twice daily. (11) Type 2 diabetes mellitus: HbA1c inaccurate due to CKD, anemia and liver cirrhosis -therefore no need to repeat this. Hold outpatient Novolin 7030 regimen (55 units twice daily) Based on prior admission we will start NPH 10 to 20 units twice daily depending on BSG with NovoLog sliding scale correction and carb coverage. (12) Hypertension: continue Norvasc continue Hydralazine 25mg TID (13) Hyperlipidemia: Noted history of this. Follow-up as outpatient. (14) Metabolic acidosis: Prior history of this. continue on sodium bicarbonate (15) DVT prophylaxis: SCD Admission and Anticipated Discharge Date Admission Date: June 03, 2020 Subjective more awake and conversive today, he is appropriate not much of an appetite but he blames the guards for putting handcuff on right hand and he is right handed reviewed labs, Cr is 4.2, his ammonia is down to 110 from 180 which is improvement discussed with RN, he took his lactulose this morning, planning on Lactulose enema again this morning leigh ann discussion with patient, explained that his liver and kidneys are not working well asked him if he understood about dialysis, asked him if he would want dialysis, he just shrugged his shoulders explained that he will continue to come to the hospital if he refuses to take Lactulose, again, he just shrugged his shoulders he denies chest pain, abdominal pain, nausea, dyspnea, fever, cough admits to diarrhea Review of Systems Review of Systems: All systems reviewed & are unremarkable except as noted in Subjective Physical Exam Constitutional: WD/WN, vitals as above Neck: trachea midline, no thyromegaly + thick neck Respiratory: normal respiratory effort, lungs clear to auscultation Cardiovascular: RRR, no murmur, no edema Gastrointestinal (Abdomen): Inspection/Auscultation: + abdomen distended and normal bowel sounds Percussion/Palpation: abdomen soft, + hernia (umbilical) and + ascites; abdomen nontender Musculoskeletal: no cyanosis or clubbing, extremities motor strength 5/5 Skin: no rashes, warm and dry Neurologic: PERRL, EOMI, accommodation nl, no face palsy, no dysarthria Psychiatric: A+Ox3, euthymic affect Lymphatic: no cervical or axillary lymphadenopathy Results & Data Results & Data ([facility]) Vital Signs (Past 12 Hours) Vital Signs Temp Pulse Pulse Resp BP BP Pulse Ox 06/06/20 08:10 36.6 C 89 18 146/84 H 99 06/06/20 04:40 36.6 C 92 H 17 131/87 98 06/05/20 23:44 36.6 C 94 H 16 163/79 H 94 06/05/20 22:50 91 H Laboratory Results Laboratory Results - last 24 hr 06/05/20 06/05/20 06/05/20 07:29 11:32 16:13 Sodium Potassium Chloride Carbon Dioxide Anion Gap BUN Creatinine Est Cr Clr Drug Dosing Est GFR ( Amer) Est GFR (Non-Af Amer) BUN/Creatinine Ratio Glucose POC Glucose 208 H 168 H 129 H Calcium Ammonia 06/05/20 06/06/20 06/06/20 19:53 07:34 07:39 Sodium 141 Potassium 3.7 Chloride 109 H Carbon Dioxide 21 Anion Gap 11.0 BUN 60 H Creatinine 4.20 H Est Cr Clr Drug Dosing 19.2 Est GFR ( Amer) 16.0 Est GFR (Non-Af Amer) 13.8 BUN/Creatinine Ratio 14.2 Glucose 111 H POC Glucose 128 H Calcium 9.5 Ammonia 112.4 H 06/06/20 07:48 Sodium Potassium Chloride Carbon Dioxide Anion Gap BUN Creatinine Est Cr Clr Drug Dosing Est GFR ( Amer) Est GFR (Non-Af Amer) BUN/Creatinine Ratio Glucose POC Glucose 113 H Calcium Ammonia Medications Administered Current Inpatient Medications Amlodipine Besylate (Amlodipine Besylate 5 Mg Tab) 10 mg PO QAM [facility] Stop: 07/04/20 08:59 Last Admin: 06/06/20 08:17 Dose: 10 mg Documented by: Bumetanide (Bumetanide 1 Mg Tab) 2 mg PO QAM [facility] Stop: 07/05/20 08:59 Last Admin: 06/06/20 08:16 Dose: 2 mg Documented by: Lactulose 200 gm/ Sterile Water 700 ml/ BARCODE IDENTIFIER 1 ea 0 gm [place] Q8H [facility] Stop: 07/05/20 08:59 Last Admin: 06/06/20 02:38 Dose: 200 gm Documented by: Dextrose (Dextrose 50% 50 Ml Syringe) 25 - 50 ml IV UD PRN; Protocol PRN Reason: Hypoglycemia Protocol Stop: 07/03/20 23:21 Glucagon (Glucagon For Inj 1 Mg Vial) 1 mg SQ UD PRN; Protocol PRN Reason: Hypoglycemia Protocol Stop: 07/03/20 23:21 Glucose (Glucose 10 Tabs/Tube) 4 - 8 tabs PO UD PRN; Protocol PRN Reason: Hypoglycemia Protocol Stop: 07/03/20 23:21 Glucose (Glucose 40% Gel 15 Gm Tube) 15 - 30 gm PO UD PRN; Protocol PRN Reason: Hypoglycemia Protocol Stop: 07/03/20 23:21 Hydralazine HCl (Hydralazine Hcl 25 Mg Tab) 25 mg PO TID [facility] Stop: 07/06/20 13:59 Insulin Aspart (Insulin Aspart 100 Units/Ml 3 Ml Pen) 0 units SC ACHS [facility] Stop: 07/04/20 07:29 Last Admin: 06/06/20 08:20 Dose: Not Given Documented by: Insulin Human NPH (Insulin Human Nph) 10 - 20 units SC BID [facility] Stop: 07/03/20 23:29 Last Admin: 06/06/20 08:21 Dose: 10 units Documented by: Lactulose (Lactulose Syrup 30 Gm/45 Ml Udp) 30 gm PO BID [facility] Stop: 07/04/20 20:59 Last Admin: 06/06/20 08:20 Dose: 30 gm Documented by: Magnesium Oxide (Magnesium Oxide 400 Mg Tab) 400 mg PO BID [facility] Stop: 07/03/20 20:59 Last Admin: 06/06/20 08:16 Dose: 400 mg Documented by: Miscellaneous (Carbohydrates For Hypoglycemia ) 15 - 30 gm PO UD PRN PRN Reason: Hypoglycemia Protocol Stop: 07/03/20 23:21 Nortriptyline HCl (Nortriptyline Hcl 25 Mg Cap) 25 mg PO HS [facility] Stop: 07/03/20 20:59 Last Admin: 06/05/20 19:55 Dose: 25 mg Documented by: Ondansetron HCl (Ondansetron Inj 2 Mg/Ml 2 Ml Vial) 4 mg IV Q6H PRN PRN Reason: Nausea Stop: 07/03/20 14:41 Pantoprazole Sodium (Pantoprazole 40 Mg Tab) 40 mg PO [facility]; Protocol Stop: 07/04/20 08:59 Last Admin: 06/06/20 08:17 Dose: 40 mg Documented by: Propranolol HCl (Propranolol Hcl 20 Mg Tab) 20 mg PO TID [facility] Stop: 07/04/20 08:59 Last Admin: 06/06/20 08:16 Dose: 20 mg Documented by: Rifaximin (Rifaximin 550 Mg Tablet) 550 mg PO BID [facility] Stop: 07/03/20 20:59 Last Admin: 06/06/20 08:15 Dose: 550 mg Documented by: Sodium Bicarbonate (Sodium Bicarbonate 650 Mg Tab) 650 mg PO [facility] Stop: 07/04/20 08:59 Last Admin: 06/06/20 08:16 Dose: 650 mg Documented by: PG Care Time/CCT Total # of Minutes Spent Total Time Spent with Patient: Total time spent is greater than 50% in coordination of care (as documented) at patient's floor/unit and/or counseling patient: Coding Level of Care Code 91086 Subseq Hosp Care Lvl 3 Diagnoses Acute hepatic encephalopathy K72.00 Hyperammonemia E72.20 Liver cirrhosis K74.60 Hepatic cirrhosis type: unspecified hepatic cirrhosis Ascites presence: without ascites GERD (gastroesophageal reflux disease) K21.9 Esophageal varices without bleeding I85.00 Normocytic anemia D64.9 HCV (hepatitis C virus) B19.20 CKD (chronic kidney disease), stage IV N18.4 Nephrotic range proteinuria R80.9 Hypomagnesemia E83.42 Type 2 diabetes mellitus E11.9 Hypertension I10 Hyperlipidemia E78.5 Metabolic acidosis E87.2 DVT prophylaxis Z29.9 (1) Liver cirrhosis Hepatic cirrhosis type: unspecified hepatic cirrhosis Ascites presence: without ascites Qualified Code(s): K74.60 - Unspecified cirrhosis of liver
[2020-06-06] MEDS: hydrALAZINE HCL 25 MG TAB PO SCH ×2 (13:23→19:43)
[2020-06-06] MEDS: NORTRIPTYLINE HCL 25 MG CAP PO SCH (19:43)
[2020-06-07 08:09] LABS: Hematocrit (blood only) 30.2 % (42-52); Hemoglobin 10.5 g/dL (14.0-18.0); Mean Corpuscular Hemoglobin 31.7 pg (25-34); Mean Corpuscular Hgb Conc 34.8 g/dL (32-36); Mean Corpuscular Volume 91.2 fL (80-100); Mean Platelet Volume 10.9 fL (7.4-10.4); Platelet Count 126 K/uL (130-400); RDW Coefficient of Variation 14.1 % (11.5-14.5); Red Blood Count 3.31 M/uL (4.7-6.1); White Blood Count 6.18 K/uL (4.8-10.8)
[2020-06-07] MEDS: INSULIN HUMAN NPH SC SCH ×2 (08:35→20:46)
[2020-06-07] MEDS: LACTULOSE SYRUP 30 GM/45 ML UDP PO SCH ×2 (08:35→20:29)
[2020-06-07] MEDS: rifAXIMin 550 MG TABLET PO SCH ×2 (08:36→20:29)
[2020-06-07] MEDS: hydrALAZINE HCL 25 MG TAB PO SCH ×3 (08:36→20:30)
[2020-06-07] MEDS: PANTOprazole 40 MG TAB PO SCH (08:36)
[2020-06-07] MEDS: BUMETANIDE 1 MG TAB PO SCH (08:36)
[2020-06-07] MEDS: amLODIPine BESYLATE 5 MG TAB PO SCH (08:36)
[2020-06-07] MEDS: MAGNESIUM OXIDE 400 MG TAB PO SCH (08:36)
[2020-06-07] MEDS: PROPRANOLOL HCL 20 MG TAB PO SCH ×3 (08:37→20:29)
[2020-06-07] MEDS: SODIUM BICARBONATE 650 MG TAB PO SCH (08:37)
[2020-06-07] MEDS: INSULIN ASPART 100 UNITS/ML 3 ML PEN SC SCH ×4 (08:42→20:46)
[2020-06-07 08:52] LABS: BUN Creatinine Ratio 13.7 (10-20); Creatinine Clr Calc Pharmacy 15.8 ml/min; Est GFR (African American) 12.6; Est GFR (Non-African American) 10.9; Potassium 3.8 mmol/L (3.5-5.1)
--- NOTE | 2020-06-07 09:56 | Hospitalist Progress Note ---
Date of Service June 07, 2020 Assessment & Plan (1) Acute hepatic encephalopathy: Suspect secondary to lack of bowel movements and missed lactulose doses as an outpatient he is ordered Lactulose 20gm QID and Rifaximin 550mg BID he admits to refusing to take all his Lactulose at [facility] ammonia down to 88 after lactulose enema on admission, mentation was clear, encephalopathy resolved on 06/04 06/05 ammonia up to 187, unclear why, he is not moving bowels frequently lactulose enema ordered q8 since he was not awake enough to take Lactulose PO ammonia down to 110 on 06/06 and then up to 160's on 06/07 he is taking lactulose, will give lactulose enema again today repeat tomorrow patient has a MELD score of 23 spoke with RN at [facility], he is non-compliant with taking Lactulose at [facility] reached out to [facility] for contact information for patient's family, need to discuss goals of care now with worsening renal function, he has liver failure and renal failure poor prognosis ultimately going on HD would not help his ammonia level (2) Hyperammonemia: down to 110 yesterday and then up to 160 today will continue Lactulose 30 TID, give lactulose enema today repeat level in the morning (3) Liver cirrhosis: No prior paracentesis. No prior ascites on CT taken here has h/o varices certainly it is advanced given his hyperammonia need to discuss with physician at [facility], unclear how we can help patient and keep him out of the hospital (4) GERD (gastroesophageal reflux disease): Switch omeprazole to pantoprazole as per hospital formulary. (5) Esophageal varices without bleeding: propranolol 20 mg 3 times daily as per last discharge (6) Normocytic anemia: Hgb stable on 06/05, no signs of bleeding (7) HCV (hepatitis C virus): Treated. Repeat viral loads taken at [facility]. Request results. (8) CKD (chronic kidney disease), stage IV: worsening renal function, up to 5.1 today hold Bumex as likely he is a little intravascularly dry, give Normosol 500cc appreciate consultation from Dr Arce continue to try to make contact with patient's family regarding poor prognosis and dialysis (9) Nephrotic range proteinuria: Follow-up outpatient as above (10) Hypomagnesemia: mg oxide 400 mg p.o. twice daily. (11) Type 2 diabetes mellitus: HbA1c inaccurate due to CKD, anemia and liver cirrhosis -therefore no need to repeat this. Hold outpatient Novolin 7030 regimen (55 units twice daily) Based on prior admission we will start NPH 10 to 20 units twice daily depending on BSG with NovoLog sliding scale correction and carb coverage. (12) Hypertension: continue Norvasc continue Hydralazine 25mg TID (13) Hyperlipidemia: Noted history of this. Follow-up as outpatient. (14) Metabolic acidosis: Prior history of this. continue on sodium bicarbonate (15) DVT prophylaxis: SCD Admission and Anticipated Discharge Date Admission Date: June 03, 2020 Subjective patient awake but still confused he did not remember getting breakfast, the guard said he got a tray, he did not eat anything taking medications, he is moving his bowels ammonia up to 160 from 110 despite higher doses of Lactulose, probably need to resume enemas Cr up to 5.1, is euvolemic, hold Bumex, his K is 3.8 will ask nephrology to see, in the past it has been recommended that he follow up with long term nephrology and consider HD WBC is 6k, Hb is 10.5, plts 126 asked the patient if he would want dialysis, but he cannot even understand what I am asking he just keeps saying "Let's go man" spoke with liason at the long term, she gave me contact information for [facility] who should have information on patient's family contacts patient's brother is Tramaine I attempted to call the number for the long term but no answer several times need to talk with family member because dialysis would not help his hepatic encephalopathy Review of Systems Review of Systems: Unobtainable due to cognitive status Gastrointestinal: + diarrhea/loose stools; no abdominal pain, no nausea, no vomiting and no constipation Neurologic: + confusion Physical Exam Constitutional: WD/WN, vitals as above Neck: trachea midline, no thyromegaly + thick neck Respiratory: normal respiratory effort, lungs clear to auscultation Cardiovascular: RRR, no murmur, no edema Gastrointestinal (Abdomen): Inspection/Auscultation: + abdomen distended and normal bowel sounds Percussion/Palpation: abdomen soft, + hernia (umbilical) and + ascites; abdomen nontender Musculoskeletal: no cyanosis or clubbing, extremities motor strength 5/5 Skin: no rashes, warm and dry Neurologic: PERRL, EOMI, accommodation nl, no face palsy, no dysarthria Psychiatric: Orientation: oriented to person; + not alert, + not oriented to place and + not oriented to time Lymphatic: no cervical or axillary lymphadenopathy Results & Data Results & Data ([facility]) Vital Signs (Past 12 Hours) Vital Signs Temp Pulse Pulse Resp BP Pulse Ox 06/07/20 08:06 36.5 C 95 H 18 121/64 98 06/07/20 03:47 36.5 C 91 H 19 158/71 H 98 06/06/20 22:59 90 Laboratory Results Laboratory Results - last 24 hr 06/06/20 06/06/20 06/06/20 11:49 16:34 19:41 WBC RBC Hgb Hct MCV MCH MCHC RDW Std Deviation RDW Coeff of Kianna Plt Count MPV Sodium Potassium Chloride Carbon Dioxide Anion Gap BUN Creatinine Est Cr Clr Drug Dosing Est GFR ( Amer) Est GFR (Non-Af Amer) BUN/Creatinine Ratio Glucose POC Glucose 179 H 170 H 141 H Calcium Ammonia 06/07/20 06/07/20 06/07/20 07:36 07:50 07:50 WBC 6.18 RBC 3.31 L Hgb 10.5 L Hct 30.2 L MCV 91.2 MCH 31.7 MCHC 34.8 RDW Std Deviation 46.0 RDW Coeff of Kianna 14.1 Plt Count 126 L MPV 10.9 H Sodium 135 L Potassium 3.8 Chloride 104 Carbon Dioxide 21 Anion Gap 10.0 BUN 69 H Creatinine 5.11 H* D Est Cr Clr Drug Dosing 15.8 Est GFR ( Amer) 12.6 Est GFR (Non-Af Amer) 10.9 BUN/Creatinine Ratio 13.7 Glucose 195 H POC Glucose 195 H Calcium 9.0 Ammonia 06/07/20 07:54 WBC RBC Hgb Hct MCV MCH MCHC RDW Std Deviation RDW Coeff of Kianna Plt Count MPV Sodium Potassium Chloride Carbon Dioxide Anion Gap BUN Creatinine Est Cr Clr Drug Dosing Est GFR ( Amer) Est GFR (Non-Af Amer) BUN/Creatinine Ratio Glucose POC Glucose Calcium Ammonia 160.2 H Medications Administered Current Inpatient Medications Amlodipine Besylate (Amlodipine Besylate 5 Mg Tab) 10 mg PO QAM [facility] Stop: 07/04/20 08:59 Last Admin: 06/07/20 08:36 Dose: 10 mg Documented by: Lactulose 200 gm/ Sterile Water 700 ml/ BARCODE IDENTIFIER 1 ea 0 gm [place] ONE ONE Stop: 06/07/20 09:58 Dextrose (Dextrose 50% 50 Ml Syringe) 25 - 50 ml IV UD PRN; Protocol PRN Reason: Hypoglycemia Protocol Stop: 07/03/20 23:21 Glucagon (Glucagon For Inj 1 Mg Vial) 1 mg SQ UD PRN; Protocol PRN Reason: Hypoglycemia Protocol Stop: 07/03/20 23:21 Glucose (Glucose 10 Tabs/Tube) 4 - 8 tabs PO UD PRN; Protocol PRN Reason: Hypoglycemia Protocol Stop: 07/03/20 23:21 Glucose (Glucose 40% Gel 15 Gm Tube) 15 - 30 gm PO UD PRN; Protocol PRN Reason: Hypoglycemia Protocol Stop: 07/03/20 23:21 Hydralazine HCl (Hydralazine Hcl 25 Mg Tab) 25 mg PO TID [facility] Stop: 07/06/20 13:59 Last Admin: 06/07/20 08:36 Dose: 25 mg Documented by: Insulin Aspart (Insulin Aspart 100 Units/Ml 3 Ml Pen) 0 units SC ACHS [facility] Stop: 07/04/20 07:29 Last Admin: 06/07/20 08:42 Dose: 4 units Documented by: Insulin Human NPH (Insulin Human Nph) 10 - 20 units SC BID [facility] Stop: 07/03/20 23:29 Last Admin: 06/07/20 08:35 Dose: 20 units Documented by: Lactulose (Lactulose Syrup 30 Gm/45 Ml Udp) 30 gm PO BID [facility] Stop: 07/04/20 20:59 Last Admin: 06/07/20 08:35 Dose: 30 gm Documented by: Magnesium Oxide (Magnesium Oxide 400 Mg Tab) 400 mg PO BID [facility] Stop: 07/03/20 20:59 Last Admin: 06/07/20 08:36 Dose: 400 mg Documented by: Miscellaneous (Carbohydrates For Hypoglycemia ) 15 - 30 gm PO UD PRN PRN Reason: Hypoglycemia Protocol Stop: 07/03/20 23:21 Nortriptyline HCl (Nortriptyline Hcl 25 Mg Cap) 25 mg PO HS [facility] Stop: 07/03/20 20:59 Last Admin: 06/06/20 19:43 Dose: 25 mg Documented by: Ondansetron HCl (Ondansetron Inj 2 Mg/Ml 2 Ml Vial) 4 mg IV Q6H PRN PRN Reason: Nausea Stop: 07/03/20 14:41 Pantoprazole Sodium (Pantoprazole 40 Mg Tab) 40 mg PO QAM [facility]; Protocol Stop: 07/04/20 08:59 Last Admin: 06/07/20 08:36 Dose: 40 mg Documented by: Propranolol HCl (Propranolol Hcl 20 Mg Tab) 20 mg PO TID [facility] Stop: 07/04/20 08:59 Last Admin: 06/07/20 08:37 Dose: 20 mg Documented by: Rifaximin (Rifaximin 550 Mg Tablet) 550 mg PO BID [facility] Stop: 07/03/20 20:59 Last Admin: 06/07/20 08:36 Dose: 550 mg Documented by: Sodium Bicarbonate (Sodium Bicarbonate 650 Mg Tab) 650 mg PO QAM [facility] Stop: 07/04/20 08:59 Last Admin: 06/07/20 08:37 Dose: 650 mg Documented by: PG Care Time/CCT Total # of Minutes Spent Total Time Spent: 40 Total Time Spent with Patient: Total time spent is greater than 50% in coordination of care (as documented) at patient's floor/unit and/or counseling patient: Coding Level of Care Code 30270 Subseq Hosp Care Lvl 3 Diagnoses Acute hepatic encephalopathy K72.00 Hyperammonemia E72.20 Liver cirrhosis K74.60 Ascites presence: without ascites Hepatic cirrhosis type: unspecified hepatic cirrhosis GERD (gastroesophageal reflux disease) K21.9 Esophageal varices without bleeding I85.00 Normocytic anemia D64.9 HCV (hepatitis C virus) B19.20 CKD (chronic kidney disease), stage IV N18.4 Nephrotic range proteinuria R80.9 Hypomagnesemia E83.42 Type 2 diabetes mellitus E11.9 Hypertension I10 Hyperlipidemia E78.5 Metabolic acidosis E87.2 DVT prophylaxis Z29.9 (1) Liver cirrhosis Ascites presence: without ascites Hepatic cirrhosis type: unspecified hepatic cirrhosis Qualified Code(s): K74.60 - Unspecified cirrhosis of liver
[2020-06-07] MEDS ORDERED: LACTULOSE 200 GM, WATER, STERILE IRRIG 700 ML, BARCODE IDENTIFIER 1 EA PR ONE (10:30)
[2020-06-07] MEDS ORDERED: NORMOSOL-R 500 ML IV ONE (12:35)
--- NOTE | 2020-06-07 13:44 | Ultrasound Report ---
US renal/blad retro comp HISTORY: 65 years-old Male REDD acute kidney injury COMPARISON: CT abdomen and pelvis 05/24/2020 TECHNIQUE: Multiple real-time sonographic images of the kidneys and urinary bladder were obtained ass essing grayscale appearance and color flow FINDINGS: The right kidney measures 10.0 cm in length and is suboptimally visualized secondary to obscuring bow el gas. No right-sided renal calculi or hydronephrosis. The left kidney measures 11.4 cm in length and demonstrates no renal calculi or hydronephrosis. Finn catheter is noted within a decompressed urinary bladder. IMPRESSION: Unremarkable renal ultrasound. ACT 112: Negative or not required by law. The above report was generated using voice recognition software. It may contain grammatical, syntax o r spelling errors. Electronically signed by: Martin Tirado M.D. 06/07/2020 1:42 PM
--- NOTE | 2020-06-07 16:05 | Nephrology Consultation ---
Date of Consultation June 07, 2020 Assessment & Plan (1) CKD (chronic kidney disease), stage IV: Chicho has advanced chronic kidney disease approaching the need for dialysis. This is complicated by underlying cirrhosis. Overall his prognosis is guarded. Current MELD score is 23. He is unfortunately not able to participate in a meaningful conversation due to persistent encephalopathy. I suspect this is more hepatic encephalopathy than uremic given his recent kidney function. Electrolytes are acceptable and volume status is euvolemic. Chicho is non-oliguric and there is no emergent indication for dialysis at this time. He is intravascularly dry from recent diuretics, GI losses associated with lactulose, and poor oral intake. A challenge with IVF while holding diuretics will be provided. I have also requested repeat urine studies (UA/micro + random urine sodium). BP being normotensive to slightly elevated and his adequate urine output argue against acute HRS. The recent progression of CKD over the past several months is disconcerting and the etiology is not entirely clear. Serologic evaluation including complement levels, screening for a monoclonal abnormality, serologic antibody screen for primary membranous, and screening for HIV has been negative. I suspect dialysis will be necessary in the near future but would certainly express concerns given the guarded prognosis in conjunction with his underlying liver disease. Medications are appropriately dosed for kidney function. IV normosol 500 ml bolus was provided and an infusion will be provided overnight at 100 ml/hr. CMP will be repeated in the AM. Please document strict I/O's. For anemia of chronic disease, Chicho is maintained on Epogen as an outpatient. CECY therapy has been held now in setting of hemoglobin of 10.5. BP has been acceptable. No change in medications since hydralazine was added yesterday. Chicho remains on NaHCO3 650 twice daily as previously prescribed for NAGMA associated with renal insufficiency and GI losses. (2) Nephrotic range proteinuria: (3) Acute hepatic encephalopathy: Suspect secondary to lack of bowel movements and missed lactulose doses as an outpatient he is ordered Lactulose 20gm QID and Rifaximin 550mg BID he admits to refusing to take all his Lactulose at [facility] ammonia down to 88 after lactulose enema on admission, mentation was clear, encephalopathy resolved on 06/04 06/05 ammonia up to 187, unclear why, he is not moving bowels frequently lactulose enema ordered q8 since he was not awake enough to take Lactulose PO ammonia down to 110 on 06/06, he is now taking Lactulose will give one more enema this morning, discussed with RN continue Lactulose to 30gm TID as he is fixated on taking it 3 times a day but not 4 times a day Aim 2-3 bowel movements daily. follow up ammonia in the morning plan to call [facility] today to discuss (4) Liver cirrhosis: No prior paracentesis. No prior ascites on CT taken here has h/o varices certainly it is advanced given his hyperammonia need to discuss with physician at [facility], unclear how we can help patient and keep him out of the hospital (5) Anemia: History of Present Illness Reason for Consultation: REDD/CKD Requesting Physician: Eduardo Hess DO Attending Physician: Eduardo Hess DO History of Present Illness Mr. Chicho Moreira is a 65-year-old male with hepatitis C cirrhosis and chronic kidney disease admitted with hepatic encephalopathy and REDD. He is an inmate at [facility]. Mr. Moreira was brought to the ER at [facility] on June 03 for evaluation of mental status changes. He was somnolent and nearly obtunded on admission. He is being treated for recurrent hepatic encephalopathy without any apparent infection. He has been receiving treatment with lactulose and rifaximin. There has been some improvement but he unfortunately remains notably altered and unable to provide a medical history. Chicho was not able to express complete understanding during my conversation with him today. He was awake and oriented to self but not place or time. He was able to provide details such as being recently admitted to the hospital but no specifics or context for the admission. He was doing some degree of confabulating. I discussed details of his admission with Dr. Hess this morning. I initially met Mr. Moreira when he was admitted to [facility] in early April. He was then transferred to [facility] in anticipation of potential need for a kidney biopsy and dialysis. Evaluation for his kidney disease obtained in April was notable for normal complement levels, SPEP/IF without monoclonal abnormality, negative HIV, and negative PLA2r. Hepatitis B antibody and antigen screening negative, including surface antibody. Kidney function stabilized with a creatinine of 3.7 mg/dL and he was discharged from [facility] with plans for close outpatient follow up. Chicho was then admitted to [facility] earlier this month with mental status changes attributed to recurrent hepatic encephalopathy. Creatinine stabilized at 4.5 mg/dL during this admission. Bumex was provided for fluid retention. Outpatient follow up to coordinate plans for dialysis were suggested at discharge. In April, there had been no prior history of hepatic encephalopathy reported. He has not had evidence of ascites. He does have a reported history of varices without bleed. Creatinine was 1.82 mg/dL in December. It was 2.9 mg/dL in February and 3.45 mg/dL in March. UA notable for 3+ protein, 1+ glucose, 2+ blood. Microscopy negative for WBC's, 5-10 RBC. He is hypoalbuminemic. Renal artery duplex negative for stenosis. Renal US obtained today demonstrates normal appearing kidneys without evidence of obstruction. Chicho has been non-oliguric since admission. He has been in a negative fluid balance. Oral intake is poor. He had no acute complaints at the time of my assessment. He is afebrile. In March, he started to develop issues with fluid retention including abdominal and lower extremity edema. Hemoglobin A1c was 5.1 in March. Diuretic therapy had included furosemide 160 mg daily which was switched to Bumex 2 mg twice daily at the end of March. Medical history is notable for hepatitis C for which Chicho was treated with Epclusa from February to April 2019. He has longstanding insulin dependent diabetes mellitus. He has anemia attributed to anemia of chronic disease for which he has been maintained on weekly epoetin. Chicho does not have a reported family history of kidney disease. When I met him in April, he did not have any background knowledge about dialysis but was receptive to education. I do not know what education regarding [employer] has been provided since that time. During our conversation today, he was not able to communicate an understanding. Current MELD score is 23. Allergies Allergy/AdvReac Type Severity Reaction Status Date / Time No Known Allergies Allergy Unverified 05/30/20 10:42 Home Medications Home Medications Medication Instructions Recorded Confirmed Type Novolin R Flexpen 0 unit SUBCUT UD PRN 04/28/20 06/03/20 History Vitron-C 1 tab PO QAM 04/28/20 06/03/20 History epoetin amy-epbx 10,000 unit SUBCUT TH 04/28/20 06/03/20 History nortriptyline 25 mg PO HS 04/28/20 06/03/20 History omeprazole 20 mg PO QAM 04/28/20 06/03/20 History lactulose 30 ml PO QID #1200 ml 04/30/20 06/03/20 Rx Novolin 70-30 FlexPen U-100 55 unit SUBCUT BID 05/24/20 06/03/20 History Xifaxan 550 mg PO BID 05/24/20 06/03/20 History aspirin 81 mg PO QAM 05/24/20 06/03/20 History bumetanide 2 mg PO QAM 05/24/20 06/03/20 History nadolol 40 mg PO BID 05/30/20 06/03/20 History spironolactone 50 mg PO BID 05/30/20 06/03/20 History amlodipine 10 mg PO QAM 06/03/20 06/03/20 History Patient History Medical History Acute hepatic encephalopathy Acute kidney injury Allergic rhinitis Anemia, unspecified Chronic kidney disease, unspecified Esophageal varices without bleeding Flatulence GERD (gastroesophageal reflux disease) HCV (hepatitis C virus) Treated Hyperlipidemia Hypertension Liver cirrhosis Low back pain Metabolic acidosis Microscopic hematuria Onychomycosis Partial small bowel obstruction Proteinuria Pruritus, unspecified Type 2 diabetes mellitus Umbilical hernia without obstruction or gangrene Social History Smoking Status: Former smoker Hx Alcohol Use: Yes Alcohol type: beer and hard liquor Hx Substance Use: Yes Preferred Language: Mohawk Communication Ability: Effective Clinical Laboratory Assistant Required: No Beliefs That Will Affect Care: None Current Living Situation: Other Current Living Situation Comment: Prisoner at [facility] Other Information That Helps Us Care for You: No Feels Safe at Home: Yes Assistive Devices: None Assistive Devices Comment: uses a wheelchair at [facility] Review of Systems Review of Systems: All systems reviewed & are unremarkable except as noted in HPI & below Physical Exam Constitutional: well developed; no acute distress Eyes: no scleral abnormality and no corneal abnormality ENMT: Mouth: + dry oral mucous membranes; no oral mucosal abnormality Neck: normal visual inspection and trachea midline Respiratory: normal respiratory effort Auscultation: lungs clear to auscultation bilaterally Cardiovascular: Rate/Rhythm: regular rate Heart Sounds: normal S1 and normal S2 Extremities: no edema Musculoskeletal: Extremities: no cyanosis and no clubbing Skin: normal turgor; no lesions Neurologic: Motor/Sensory: no tremor and no asterixis Psychiatric: Orientation: alert and oriented x 3 Results & Data ([facility]) Vital Signs (Past 12 Hours) Vital Signs Temp Pulse Pulse Resp BP BP Pulse Ox 06/07/20 12:12 36.4 C L 85 19 138/80 98 06/07/20 08:06 36.5 C 95 H 18 121/64 98 06/07/20 08:03 91 H Laboratory Results Laboratory Results - last 24 hr 06/06/20 06/07/20 06/07/20 19:41 07:36 07:50 WBC 6.18 RBC 3.31 L Hgb 10.5 L Hct 30.2 L MCV 91.2 MCH 31.7 MCHC 34.8 RDW Std Deviation 46.0 RDW Coeff of Kianna 14.1 Plt Count 126 L MPV 10.9 H Sodium Potassium Chloride Carbon Dioxide Anion Gap BUN Creatinine Est Cr Clr Drug Dosing Est GFR ( Amer) Est GFR (Non-Af Amer) BUN/Creatinine Ratio Glucose POC Glucose 141 H 195 H Calcium Ammonia 06/07/20 06/07/20 06/07/20 07:50 07:54 11:47 WBC RBC Hgb Hct MCV MCH MCHC RDW Std Deviation RDW Coeff of Kianna Plt Count MPV Sodium 135 L Potassium 3.8 Chloride 104 Carbon Dioxide 21 Anion Gap 10.0 BUN 69 H Creatinine 5.11 H* D Est Cr Clr Drug Dosing 15.8 Est GFR ( Amer) 12.6 Est GFR (Non-Af Amer) 10.9 BUN/Creatinine Ratio 13.7 Glucose 195 H POC Glucose 216 H Calcium 9.0 Ammonia 160.2 H 06/07/20 16:23 WBC RBC Hgb Hct MCV MCH MCHC RDW Std Deviation RDW Coeff of Kianna Plt Count MPV Sodium Potassium Chloride Carbon Dioxide Anion Gap BUN Creatinine Est Cr Clr Drug Dosing Est GFR ( Amer) Est GFR (Non-Af Amer) BUN/Creatinine Ratio Glucose POC Glucose 227 H Calcium Ammonia Diagnostic Findings Renal US: The right kidney measures 10.0 cm in length and is suboptimally visualized secondary to obscuring bowel gas. No right-sided renal calculi or hydronephrosis. The left kidney measures 11.4 cm in length and demonstrates no renal calculi or hydronephrosis. Finn catheter is noted within a decompressed urinary bladder. IMPRESSION: Unremarkable renal ultrasound. PG Care Time/CCT Total # of Minutes Spent Total Time Spent with Patient: Total time spent is greater than 50% in coordination of care (as documented) at patient's floor/unit and/or counseling patient: Coding Level of Care Code 00249 Inpt Consult Level 5 Diagnoses CKD (chronic kidney disease), stage IV N18.4 Nephrotic range proteinuria R80.9 Acute hepatic encephalopathy K72.00 Liver cirrhosis K74.60 Hepatic cirrhosis type: unspecified hepatic cirrhosis Ascites presence: without ascites Anemia D64.9 (1) Liver cirrhosis Hepatic cirrhosis type: unspecified hepatic cirrhosis Ascites presence: without ascites Qualified Code(s): K74.60 - Unspecified cirrhosis of liver
[2020-06-07] MEDS: NORMOSOL-R 1,000 ML IV SCH (17:40)
[2020-06-07] MEDS: NORTRIPTYLINE HCL 25 MG CAP PO SCH (20:30)
[2020-06-08 01:41] LABS: Appearance Urine Cloudy (Clear); Bacteria Urine Automated Negative (Negative); Bilirubin Urine Negative (Negative); Blood Urine 2+ (Negative); Color Urine Yellow; Epithelial Cell Urine Auto >30 /lpf (0-5); Glucose Urine UA Negative (Negative); Ketones Urine Negative (Negative); Leukocyte Esterase Urine 1+ (Negative); Nitrite Urine Negative (Negative); Protein Urine 3+ (Negative); RBC Urine Automated >30 /hpf (0-4); Specific Gravity Urine 1.017 (1.000-1.030); Urobilinogen Urine Negative (Negative); WBC Urine Automated >30 /hpf (0-5)
[2020-06-08 08:27] LABS: Albumin Globulin Ratio 0.4 (0.9-2); BUN Creatinine Ratio 14.1 (10-20); Bilirubin,Total 1.2 mg/dl (0.2-1); Calcium 8.6 mg/dl (8.5-10.1); Creatinine Clr Calc Pharmacy 17.2 ml/min; Est GFR (Non-African American) 12.1; Globulin 4.8 gm/dl (2.5-4.0); Potassium 3.9 mmol/L (3.5-5.1); Total Protein 6.8 gm/dl (6.4-8.2)
[2020-06-08] MEDS: NORMOSOL-R 1,000 ML IV SCH ×2 (08:58→19:05)
--- NOTE | 2020-06-08 08:58 | Hospitalist Progress Note ---
Date of Service June 08, 2020 Assessment & Plan (1) Acute hepatic encephalopathy: Suspect secondary to lack of bowel movements and missed lactulose doses as an outpatient he is ordered Lactulose 20gm QID and Rifaximin 550mg BID he admits to refusing to take all his Lactulose at [facility] ammonia down to 88 after lactulose enema on admission, mentation was clear, encephalopathy resolved on 06/04 06/05 ammonia up to 187, unclear why, he is not moving bowels frequently lactulose enema ordered q8 since he was not awake enough to take Lactulose PO ammonia down to 110 on 06/06 and then up to 160's on 06/07 today a little improved at 149 he is taking lactulose, will give lactulose enemas q8, d/w RN repeat tomorrow patient has a MELD score of 23 spoke with RN at [facility], he is non-compliant with taking Lactulose at [facility] reached out to [facility] for contact information for patient's family, need to discuss goals of care now with worsening renal function, he has liver failure and renal failure poor prognosis ultimately going on HD would not help his ammonia level (2) Hyperammonemia: down to 149 will continue Lactulose 30 TID, give lactulose enemas repeat level in the morning (3) Liver cirrhosis: No prior paracentesis. No prior ascites on CT taken here has h/o varices certainly it is advanced given his hyperammonia need to discuss with physician at [facility], unclear how we can help patient and keep him out of the hospital (4) GERD (gastroesophageal reflux disease): Switch omeprazole to pantoprazole as per hospital formulary. (5) Esophageal varices without bleeding: propranolol 20 mg 3 times daily as per last discharge (6) Normocytic anemia: Hgb stable on 06/05, no signs of bleeding (7) HCV (hepatitis C virus): Treated. Repeat viral loads taken at [facility]. Request results. (8) CKD (chronic kidney disease), stage IV: worsening renal function, Cr down to 4.6 hold Bumex as likely he is a little intravascularly dry, give Normosol 500cc appreciate consultation from Dr Arce continue to try to make contact with patient's family regarding poor prognosis and if they would want to pursue dialysis (9) Nephrotic range proteinuria: Follow-up outpatient as above (10) Hypomagnesemia: mg oxide 400 mg p.o. twice daily. (11) Type 2 diabetes mellitus: HbA1c inaccurate due to CKD, anemia and liver cirrhosis -therefore no need to repeat this. Hold outpatient Novolin 7030 regimen (55 units twice daily) Based on prior admission we will start NPH 10 to 20 units twice daily depending on BSG with NovoLog sliding scale correction and carb coverage. no hypoglycemic episodes (12) Hypertension: continue Norvasc continue Hydralazine 25mg TID (13) Hyperlipidemia: Noted history of this. Follow-up as outpatient. (14) Metabolic acidosis: Prior history of this. continue on sodium bicarbonate (15) DVT prophylaxis: SCD Admission and Anticipated Discharge Date Admission Date: June 03, 2020 Subjective patient alert today, but still confused Cr improved to 4.6, electrolytes stable ammonia down a little at 160 d/w RN, will give lactulose enemas today Review of Systems Review of Systems: Unobtainable due to cognitive status Physical Exam Constitutional: WD/WN, vitals as above Neck: trachea midline, no thyromegaly + thick neck Respiratory: normal respiratory effort, lungs clear to auscultation Cardiovascular: RRR, no murmur, no edema Gastrointestinal (Abdomen): Inspection/Auscultation: + abdomen distended and normal bowel sounds Percussion/Palpation: abdomen soft, + hernia (umbilical) and + ascites; abdomen nontender Musculoskeletal: no cyanosis or clubbing, extremities motor strength 5/5 Skin: no rashes, warm and dry Neurologic: PERRL, EOMI, accommodation nl, no face palsy, no dysarthria + confused Psychiatric: Orientation: oriented to person; + not alert, + not oriented to place and + not oriented to time Lymphatic: no cervical or axillary lymphadenopathy Results & Data Results & Data ([facility]) Vital Signs (Past 12 Hours) Vital Signs Temp Pulse Pulse Resp BP Pulse Ox 06/08/20 07:51 36.7 C 92 H 18 137/73 98 06/08/20 01:53 90 06/08/20 01:50 36.6 C 88 18 142/78 H 100 06/08/20 00:41 36.3 C L 87 18 131/76 97 Laboratory Results Laboratory Results - last 24 hr 06/07/20 06/07/20 06/07/20 11:47 16:23 20:17 Sodium Potassium Chloride Carbon Dioxide Anion Gap BUN Creatinine Est Cr Clr Drug Dosing Est GFR ( Amer) Est GFR (Non-Af Amer) BUN/Creatinine Ratio Glucose POC Glucose 216 H 227 H 148 H Calcium Total Bilirubin AST ALT Alkaline Phosphatase Ammonia Total Protein Albumin Globulin Albumin/Globulin Ratio Vitamin B12 Urine Color Urine Appearance Urine pH Ur Specific [place] Urine Protein Urine Glucose (UA) Urine Ketones Urine Blood Urine Nitrite Urine Bilirubin Urine Urobilinogen Ur Leukocyte Esterase Urine WBC (Auto) Urine RBC (Auto) U Hyaline Cast (Auto) U Epithel Cells (Auto) Urine Bacteria (Auto) Ur Renal Epithelial Cell Granular Casts Urine Yeast Ur Random Sodium 06/08/20 06/08/20 06/08/20 00:00 00:00 07:05 Sodium 138 Potassium 3.9 Chloride 105 Carbon Dioxide 21 Anion Gap 12.0 H BUN 66 H Creatinine 4.69 H* D Est Cr Clr Drug Dosing 17.2 Est GFR ( Amer) 14.0 Est GFR (Non-Af Amer) 12.1 BUN/Creatinine Ratio 14.1 Glucose 169 H POC Glucose Calcium 8.6 Total Bilirubin 1.2 H AST 68 H ALT 46 Alkaline Phosphatase 105 Ammonia Total Protein 6.8 Albumin 2.0 L Globulin 4.8 H Albumin/Globulin Ratio 0.4 L Vitamin B12 Urine Color Yellow Urine Appearance Cloudy A Urine pH 5.0 Ur Specific [place] 1.017 Urine Protein 3+ H Urine Glucose (UA) Negative Urine Ketones Negative Urine Blood 2+ H Urine Nitrite Negative Urine Bilirubin Negative Urine Urobilinogen Negative Ur Leukocyte Esterase 1+ H Urine WBC (Auto) >30 H Urine RBC (Auto) >30 H U Hyaline Cast (Auto) 10-30 H U Epithel Cells (Auto) >30 H Urine Bacteria (Auto) Negative Ur Renal Epithelial Cell Not Reportable Granular Casts 1-5 H Urine Yeast Not Reportable Ur Random Sodium 26 06/08/20 06/08/20 06/08/20 07:05 07:05 08:06 Sodium Potassium Chloride Carbon Dioxide Anion Gap BUN Creatinine Est Cr Clr Drug Dosing Est GFR ( Amer) Est GFR (Non-Af Amer) BUN/Creatinine Ratio Glucose POC Glucose 187 H Calcium Total Bilirubin AST ALT Alkaline Phosphatase Ammonia 149.9 H Total Protein Albumin Globulin Albumin/Globulin Ratio Vitamin B12 Pending Urine Color Urine Appearance Urine pH Ur Specific [place] Urine Protein Urine Glucose (UA) Urine Ketones Urine Blood Urine Nitrite Urine Bilirubin Urine Urobilinogen Ur Leukocyte Esterase Urine WBC (Auto) Urine RBC (Auto) U Hyaline Cast (Auto) U Epithel Cells (Auto) Urine Bacteria (Auto) Ur Renal Epithelial Cell Granular Casts Urine Yeast Ur Random Sodium Medications Administered Current Inpatient Medications Amlodipine Besylate (Amlodipine Besylate 5 Mg Tab) 10 mg PO QAM JENNIFER Stop: 07/04/20 08:59 Last Admin: 06/07/20 08:36 Dose: 10 mg Documented by: Lactulose 200 gm/ Sterile Water 700 ml/ BARCODE IDENTIFIER 1 ea 0 gm W[place] Q8H JENNIFER Stop: 07/08/20 08:59 Dextrose (Dextrose 50% 50 Ml Syringe) 25 - 50 ml IV UD PRN; Protocol PRN Reason: Hypoglycemia Protocol Stop: 07/03/20 23:21 Glucagon (Glucagon For Inj 1 Mg Vial) 1 mg SQ UD PRN; Protocol PRN Reason: Hypoglycemia Protocol Stop: 07/03/20 23:21 Glucose (Glucose 10 Tabs/Tube) 4 - 8 tabs PO UD PRN; Protocol PRN Reason: Hypoglycemia Protocol Stop: 07/03/20 23:21 Glucose (Glucose 40% Gel 15 Gm Tube) 15 - 30 gm PO UD PRN; Protocol PRN Reason: Hypoglycemia Protocol Stop: 07/03/20 23:21 Hydralazine HCl (Hydralazine Hcl 25 Mg Tab) 25 mg PO TID JENNIFER Stop: 07/06/20 13:59 Last Admin: 06/07/20 20:30 Dose: 25 mg Documented by: Parenteral Electrolytes (Normosol-R) 1,000 mls @ 100 mls/hr IV .Q10H JENNIFER Stop: 07/07/20 17:14 Last Admin: 06/07/20 17:40 Dose: 100 mls/hr Documented by: Insulin Aspart (Insulin Aspart 100 Units/Ml 3 Ml Pen) 0 units SC ACHS JENNIFER Stop: 07/04/20 07:29 Last Admin: 06/07/20 20:46 Dose: 1 units Documented by: Insulin Human NPH (Insulin Human Nph) 10 - 20 units SC BID JENNIFER Stop: 07/03/20 23:29 Last Admin: 06/07/20 20:46 Dose: 10 units Documented by: Lactulose (Lactulose Syrup 30 Gm/45 Ml Udp) 30 gm PO BID JENNIFER Stop: 07/04/20 20:59 Last Admin: 06/07/20 20:29 Dose: 30 gm Documented by: Miscellaneous (Carbohydrates For Hypoglycemia ) 15 - 30 gm PO UD PRN PRN Reason: Hypoglycemia Protocol Stop: 07/03/20 23:21 Nortriptyline HCl (Nortriptyline Hcl 25 Mg Cap) 25 mg PO HS [facility] Stop: 07/03/20 20:59 Last Admin: 06/07/20 20:30 Dose: 25 mg Documented by: Ondansetron HCl (Ondansetron Inj 2 Mg/Ml 2 Ml Vial) 4 mg IV Q6H PRN PRN Reason: Nausea Stop: 07/03/20 14:41 Pantoprazole Sodium (Pantoprazole 40 Mg Tab) 40 mg PO QAM [facility]; Protocol Stop: 07/04/20 08:59 Last Admin: 06/07/20 08:36 Dose: 40 mg Documented by: Propranolol HCl (Propranolol Hcl 20 Mg Tab) 20 mg PO TID [facility] Stop: 07/04/20 08:59 Last Admin: 06/07/20 20:29 Dose: 20 mg Documented by: Rifaximin (Rifaximin 550 Mg Tablet) 550 mg PO BID [facility] Stop: 07/03/20 20:59 Last Admin: 06/07/20 20:29 Dose: 550 mg Documented by: Sodium Bicarbonate (Sodium Bicarbonate 650 Mg Tab) 650 mg PO QAM [facility] Stop: 07/04/20 08:59 Last Admin: 06/07/20 08:37 Dose: 650 mg Documented by: PG Care Time/CCT Total # of Minutes Spent Total Time Spent with Patient: Total time spent is greater than 50% in coordination of care (as documented) at patient's floor/unit and/or counseling patient: Coding Level of Care Code 95337 Subseq Hosp Care Lvl 2 Diagnoses Acute hepatic encephalopathy K72.00 Hyperammonemia E72.20 Liver cirrhosis K74.60 Hepatic cirrhosis type: unspecified hepatic cirrhosis Ascites presence: without ascites GERD (gastroesophageal reflux disease) K21.9 Esophageal varices without bleeding I85.00 Normocytic anemia D64.9 HCV (hepatitis C virus) B19.20 CKD (chronic kidney disease), stage IV N18.4 Nephrotic range proteinuria R80.9 Hypomagnesemia E83.42 Type 2 diabetes mellitus E11.9 Hypertension I10 Hyperlipidemia E78.5 Metabolic acidosis E87.2 DVT prophylaxis Z29.9 (1) Liver cirrhosis Hepatic cirrhosis type: unspecified hepatic cirrhosis Ascites presence: without ascites Qualified Code(s): K74.60 - Unspecified cirrhosis of liver
[2020-06-08] MEDS: PANTOprazole 40 MG TAB PO SCH (09:01)
[2020-06-08] MEDS: PROPRANOLOL HCL 20 MG TAB PO SCH ×3 (09:01→21:22)
[2020-06-08] MEDS: SODIUM BICARBONATE 650 MG TAB PO SCH (09:01)
[2020-06-08] MEDS: rifAXIMin 550 MG TABLET PO SCH ×2 (09:01→21:22)
[2020-06-08] MEDS: hydrALAZINE HCL 25 MG TAB PO SCH ×3 (09:01→21:22)
[2020-06-08] MEDS: amLODIPine BESYLATE 5 MG TAB PO SCH (09:01)
[2020-06-08] MEDS: LACTULOSE SYRUP 30 GM/45 ML UDP PO SCH ×2 (09:01→21:24)
[2020-06-08] MEDS: INSULIN ASPART 100 UNITS/ML 3 ML PEN SC SCH ×4 (09:01→21:28)
[2020-06-08] MEDS: LACTULOSE 200 GM, WATER, STERILE IRRIG 700 ML, BARCODE IDENTIFIER 1 EA PR SCH ×2 (09:14→18:28)
[2020-06-08] MEDS: INSULIN HUMAN NPH SC SCH ×2 (09:32→21:29)
--- NOTE | 2020-06-08 10:59 | Nephrology Progress Note ---
Date of Service June 08, 2020 Assessment & Plan (1) Acute kidney injury: * Suspect ATN related to dehydration * Renal US 06/07: ~ 11 cm kidneys, negative for obstruction * No acute indication for CEO AND CO FOUNDER at this time. Will provide gentle hydration and monitor response * Continue NaHCO3 650 mg po BID * Monitor PRP (2) CKD (chronic kidney disease), stage IV: * Baseline Cr has been 4 - 4.5 w/ EGFR 13 cc/min. Patient is nearing need for CEO AND CO FOUNDER * Nephrotic range proteinuria likely related to diabetic nephropathy * Urinalysis w/ 5 - 10 rbc/hpf. Serology studies including PLA2, HIV, Hep B, c3/c4/CH50 have all been normal/negative (3) Anemia: * Anemia of chronic disease * Patient had been on SQ CECY at [facility] * Hgb currently acceptable. Will monitor (4) Hypertension: * BP is currently acceptable * Continue amlodipine, propranolol and hydralazine (5) Acute hepatic encephalopathy: * Was not taking lactulose while at [facility] * Lacutlose enemas ordered by primary service (6) Liver cirrhosis: * Hep C + treated w/ Epclusa * Advanced cirrhosis given recurrent hyperammonemia and hepatic encephalopathy Admission and Anticipated Discharge Date Admission Date: June 03, 2020 Subjective Mr. Moreira was seen & examined in his hospital room this morning. He was alert but oriented to self only. He was requesting a meal tray Review of Systems Review of Systems: Unobtainable due to cognitive status Physical Exam Constitutional: not in distress Eyes: PERRL, conjunctivae normal, anicteric sclerae ENMT: dry mucous membranes Neck: trachea midline, no thyromegaly Respiratory: normal respiratory effort, lungs clear to auscultation Cardiovascular: RRR, no murmur, no edema Gastrointestinal (Abdomen): normal bowel sounds, soft, nontender, no hepatosplenomegaly Musculoskeletal: Extremities: no cyanosis Skin: no rashes, warm and dry Neurologic: awake and + confused (oriented to self only) Results & Data ([facility]) Vital Signs (Past 12 Hours) Vital Signs Temp Pulse Pulse Resp BP Pulse Ox 06/08/20 07:51 36.7 C 92 H 18 137/73 98 06/08/20 01:53 90 06/08/20 01:50 36.6 C 88 18 142/78 H 100 06/08/20 00:41 36.3 C L 87 18 131/76 97 Laboratory Results Laboratory Tests 06/08/20 06/08/20 06/08/20 07:05 07:05 07:05 Sodium 138 Potassium 3.9 Chloride 105 Carbon Dioxide 21 BUN 66 H Creatinine 4.69 H* D Glucose 169 H Calcium 8.6 Ammonia 149.9 H Vitamin B12 > 2000 H PG Care Time/CCT Total # of Minutes Spent Total Time Spent with Patient: Total time spent is greater than 50% in coordination of care (as documented) at patient's floor/unit and/or counseling patient: Coding Level of Care Code 58395 Subseq Hosp Care Lvl 3 Diagnoses Acute kidney injury N17.9 CKD (chronic kidney disease), stage IV N18.4 Anemia D64.9 Hypertension I10 Acute hepatic encephalopathy K72.00 Liver cirrhosis K74.60 Hepatic cirrhosis type: unspecified hepatic cirrhosis Ascites presence: without ascites (1) Liver cirrhosis Hepatic cirrhosis type: unspecified hepatic cirrhosis Ascites presence: without ascites Qualified Code(s): K74.60 - Unspecified cirrhosis of liver
[2020-06-08] MEDS: UNIT DOSE COMPOUND PR SCH (18:29)
[2020-06-08] MEDS: NORTRIPTYLINE HCL 25 MG CAP PO SCH (21:22)
[2020-06-09] MEDS: NORMOSOL-R 1,000 ML IV SCH ×3 (00:08→17:28)
[2020-06-09] MEDS: LACTULOSE 200 GM, WATER, STERILE IRRIG 700 ML, BARCODE IDENTIFIER 1 EA PR SCH ×3 (00:59→17:30)
[2020-06-09] MEDS: UNIT DOSE COMPOUND PR SCH ×3 (00:59→17:29)
[2020-06-09 05:53] LABS: Hematocrit (blood only) 28.8 % (42-52); Hemoglobin 10.3 g/dL (14.0-18.0); Mean Corpuscular Hemoglobin 32.8 pg (25-34); Mean Corpuscular Hgb Conc 35.8 g/dL (32-36); Mean Corpuscular Volume 91.7 fL (80-100); Mean Platelet Volume 10.5 fL (7.4-10.4); Platelet Count 119 K/uL (130-400); RDW Coefficient of Variation 14.4 % (11.5-14.5); RDW Standard Deviation 47.3 fL (36.4-46.3); Red Blood Count 3.14 M/uL (4.7-6.1); White Blood Count 5.68 K/uL (4.8-10.8)
[2020-06-09 06:08] LABS: BUN Creatinine Ratio 14.7 (10-20); Calcium 8.6 mg/dl (8.5-10.1); Est GFR (African American) 14.7; Est GFR (Non-African American) 12.7; Potassium 3.6 mmol/L (3.5-5.1)
[2020-06-09 06:11] LABS: Albumin Globulin Ratio 0.4 (0.9-2); Bilirubin,Total 1.1 mg/dl (0.2-1); Globulin 4.6 gm/dl (2.5-4.0); Total Protein 6.6 gm/dl (6.4-8.2)
[2020-06-09] MEDS: PROPRANOLOL HCL 20 MG TAB PO SCH ×4 (08:11→21:52)
[2020-06-09] MEDS: hydrALAZINE HCL 25 MG TAB PO SCH ×4 (08:11→21:50)
[2020-06-09] MEDS: LACTULOSE SYRUP 30 GM/45 ML UDP PO SCH ×5 (08:12→21:52)
[2020-06-09] MEDS: rifAXIMin 550 MG TABLET PO SCH ×3 (08:12→21:52)
[2020-06-09] MEDS: SODIUM BICARBONATE 650 MG TAB PO SCH (08:14)
[2020-06-09] MEDS: PANTOprazole 40 MG TAB PO SCH (08:14)
[2020-06-09] MEDS: amLODIPine BESYLATE 5 MG TAB PO SCH (08:15)
[2020-06-09] MEDS: INSULIN HUMAN NPH SC SCH ×2 (08:16→21:33)
[2020-06-09] MEDS: INSULIN ASPART 100 UNITS/ML 3 ML PEN SC SCH ×4 (08:26→21:34)
--- NOTE | 2020-06-09 10:45 | Nephrology Progress Note ---
Date of Service June 09, 2020 Assessment & Plan (1) Acute kidney injury: * Suspect ATN related to dehydration. Cr is trending down w/ IV hydration (Cr 5.11 --> 4.5) * Renal US 06/07: ~ 11 cm kidneys, negative for obstruction * Electrolyte balance remains acceptable. No acute indication for PLUMBER AND TINNER at this time * Will provide gentle hydration and monitor renal response * Continue NaHCO3 650 mg po BID * Monitor PRP (2) CKD (chronic kidney disease), stage IV: * Baseline Cr has been 4 - 4.5 w/ EGFR 13 cc/min. Patient is nearing need for PLUMBER AND TINNER * Nephrotic range proteinuria likely related to diabetic nephropathy (DM > 10 years, + retinopathy) * Urinalysis w/ 5 - 10 rbc/hpf (Finn sample). Serology studies including PLA2, HIV, Hep B, C3/C4/CH50 have all been normal/negative (3) Anemia: * Anemia of chronic disease * Patient had been on SQ Retacrit at [facility] * Hgb currently acceptable. Will monitor (4) Hypertension: * BP is currently acceptable * Continue amlodipine, propranolol and hydralazine (5) Acute hepatic encephalopathy: * Was not taking lactulose while at [facility] * On oral lactulose and rifamixin * Lacutlose enemas have also been ordered by primary service * Ammonia level remains elevated (158 umol/L today) (6) Liver cirrhosis: * Hep C + treated w/ Epclusa * Advanced cirrhosis given recurrent hyperammonemia and hepatic encephalopathy Admission and Anticipated Discharge Date Admission Date: June 03, 2020 Subjective Mr. Moreira was seen & examined in his hospital room this morning. He was sitting up eating breakfast this morning. Mr. Moreira was alert and oriented to self and place only. He voiced no new medical concerns. Review of Systems Constitutional: + weakness; no fever Eyes: no problem reported Ear, Nose, Mouth, Throat: no problem reported Respiratory: no dyspnea Cardiovascular: no chest pain and no edema Gastrointestinal: no abdominal pain, no vomiting and no diarrhea/loose stools Genitourinary: no dysuria, no urinary hesitancy and no hematuria Musculoskeletal: no back pain Integumentary: no rash Physical Exam Constitutional: not in distress Eyes: PERRL, conjunctivae normal, anicteric sclerae Neck: trachea midline, no thyromegaly Respiratory: normal respiratory effort, lungs clear to auscultation Cardiovascular: RRR, no murmur, no edema Gastrointestinal (Abdomen): normal bowel sounds, soft, nontender, no hepatosplenomegaly Musculoskeletal: Extremities: no cyanosis Skin: no rashes, warm and dry Neurologic: awake and + confused (oriented to self and place only) Genitourinary: Finn catheter in place draining clear yellow urine Results & Data ([facility]) Vital Signs (Past 12 Hours) Vital Signs Temp Pulse Resp BP Pulse Ox 06/09/20 07:18 36.4 C L 88 18 135/71 97 Laboratory Results Laboratory Tests 06/09/20 06/09/20 06/09/20 05:33 05:33 05:33 WBC 5.68 Hgb 10.3 L Hct 28.8 L Plt Count 119 L Sodium 140 Potassium 3.6 Chloride 106 Carbon Dioxide 23 BUN 66 H Creatinine 4.49 H Ammonia 158.0 H PG Care Time/CCT Total # of Minutes Spent Total Time Spent with Patient: Total time spent is greater than 50% in coordination of care (as documented) at patient's floor/unit and/or counseling patient: Coding Level of Care Code 72205 Subseq Hosp Care Lvl 3 Diagnoses Acute kidney injury N17.9 CKD (chronic kidney disease), stage IV N18.4 Anemia D64.9 Hypertension I10 Acute hepatic encephalopathy K72.00 Liver cirrhosis K74.60 Hepatic cirrhosis type: unspecified hepatic cirrhosis Ascites presence: without ascites (1) Liver cirrhosis Hepatic cirrhosis type: unspecified hepatic cirrhosis Ascites presence: without ascites Qualified Code(s): K74.60 - Unspecified cirrhosis of liver
--- NOTE | 2020-06-09 17:53 | Hospitalist Progress Note ---
Date of Service June 09, 2020 Assessment & Plan (1) Acute hepatic encephalopathy: Suspect secondary to lack of bowel movements and missed lactulose doses as an outpatient he is ordered Lactulose 20gm QID and Rifaximin 550mg BID at [facility] he admits to refusing to take all his Lactulose at [facility] ammonia down to 88 after lactulose enema on admission, mentation was clear, encephalopathy resolved on 06/04 06/05 ammonia up to 187, unclear why, he is not moving bowels frequently lactulose enema ordered q8 since he was not awake enough to take Lactulose PO ammonia down to 110 on 06/06 and then up to 160's on 06/07 improved to 149 and then back up to 158 today, 06/09 currently ordered Lactulose 30gm TID and lactulose enema q8 patient has a MELD score of 23 spoke with [facility], he is non-compliant with taking Lactulose at [facility] reached out to [facility] for contact information for patient's family, need to discuss goals of care contact is Tramaine Moreira, number is [phone] I called him today, no answer, generic voicemail that did not state that it was his phone left a basic message for him to call the hospital, provided the number for main line please try calling this number again tomorrow the custodial policy for patient's who cannot make decisions and are reaching a point for palliative care is two fold - attempt to speak with family so that they can offer guidance, make a decision - if no family members can be reached then two physicians can determine that the patient is palliative I spoke with Dr. Thomas today, other than Rifaximin and Lactulose there is nothing else to provide for hepatic encephalopathy he has a clear history of non-compliance with the Lactulose at [facility], physician and several nurses confirmed this over the phone in my opinion the patient needs palliative care as he has no quality of life, lays in bed confused and has diarrhea all day he has advancing renal failure, close to needing dialysis in my opinion he should be on hospice, he would pass away relatively quickly if we did not force him to take lactulose and give lactulose enemas (2) Hyperammonemia: up to 158 will continue Lactulose 30 TID, give lactulose enemas repeat level in the morning see discussion above (3) Liver cirrhosis: No prior paracentesis. No prior ascites on CT taken here has h/o varices certainly it is advanced given his hyperammonia needs palliative care, see above will place palliative care consult for tomorrow (4) GERD (gastroesophageal reflux disease): Switch omeprazole to pantoprazole as per hospital formulary. (5) Esophageal varices without bleeding: propranolol 20 mg 3 times daily as per last discharge (6) Normocytic anemia: Hgb stable on 06/05, no signs of bleeding (7) HCV (hepatitis C virus): Treated. Repeat viral loads taken at [facility]. Request results. (8) CKD (chronic kidney disease), stage IV: Cr is down to 4.4 today, better UO via [place] hold Bumex as likely he is a little intravascularly dry, continue Normosol appreciate consultation from Dr Arce/Nickie continue to try to make contact with patient's family regarding poor prognosis and if they would want to pursue dialysis at this point he does not need HD consult palliative care (9) Nephrotic range proteinuria: Follow-up outpatient as above (10) Hypomagnesemia: mg oxide 400 mg p.o. twice daily. (11) Type 2 diabetes mellitus: HbA1c inaccurate due to CKD, anemia and liver cirrhosis -therefore no need to repeat this. Hold outpatient Novolin 7030 regimen (55 units twice daily) Based on prior admission we will start NPH 10 to 20 units twice daily depending on BSG with NovoLog sliding scale correction and carb coverage. no hypoglycemic episodes (12) Hypertension: continue Norvasc continue Hydralazine 25mg TID (13) Hyperlipidemia: Noted history of this. Follow-up as outpatient. (14) Metabolic acidosis: Prior history of this. continue on sodium bicarbonate (15) DVT prophylaxis: SCD Admission and Anticipated Discharge Date Admission Date: June 03, 2020 Subjective patient still confused at my visit he is lethargic, minimally conversive oral intake is poor, basically force him to drink Lactulose TID very poor to no quality of life reviewed labs, ammonia still high at 158 Cr is down to 4.4, electrolytes stable on the Normosol appreciate nephrology input spoke with GI over the phone, asked if we can do anything else for ammonia other than Rifaximin 550mg BID and lactulose PO there are no other options patient is forced to drink the lactulose here and give him enemas, the ammonia is still high basically this is a palliative situation did get in contact with [facility] and they gave me a family contact patient's brother is Tramaine Moreira, his number is [phone] I attempted to call him but no answer, I left a general message that I was calling about his brother and to please call the hospital he still has not called back today discussed with custodial system, if we cannot get a hold of family despite repeated attempts then a two physician decision can be made for palliative care Review of Systems Review of Systems: Unobtainable due to reduced consciousness Physical Exam Constitutional: WD/WN, vitals as above Neck: trachea midline, no thyromegaly + thick neck Respiratory: normal respiratory effort, lungs clear to auscultation Cardiovascular: RRR, no murmur, no edema Gastrointestinal (Abdomen): Inspection/Auscultation: + abdomen distended and normal bowel sounds Percussion/Palpation: abdomen soft, + hernia (umbilical) and + ascites; abdomen nontender Musculoskeletal: no cyanosis or clubbing, extremities motor strength 5/5 Skin: no rashes, warm and dry Neurologic: PERRL, EOMI, accommodation nl, no face palsy, no dysarthria + confused Psychiatric: Orientation: oriented to person; + not alert, + not oriented to place and + not oriented to time Lymphatic: no cervical or axillary lymphadenopathy Results & Data Results & Data ([facility]) Vital Signs (Past 12 Hours) Vital Signs Temp Pulse Resp BP Pulse Ox 06/09/20 15:47 36.4 C L 83 18 137/72 99 06/09/20 07:18 36.4 C L 88 18 135/71 97 Laboratory Results Laboratory Results - last 24 hr 06/08/20 06/09/20 06/09/20 21:01 05:33 05:33 WBC 5.68 RBC 3.14 L Hgb 10.3 L Hct 28.8 L MCV 91.7 MCH 32.8 MCHC 35.8 RDW Std Deviation 47.3 H RDW Coeff of Kianna 14.4 Plt Count 119 L MPV 10.5 H Sodium 140 Potassium 3.6 Chloride 106 Carbon Dioxide 23 Anion Gap 11.0 BUN 66 H Creatinine 4.49 H Est Cr Clr Drug Dosing 18.0 Est GFR ( Amer) 14.7 Est GFR (Non-Af Amer) 12.7 BUN/Creatinine Ratio 14.7 Glucose 115 H POC Glucose 170 H Calcium 8.6 Total Bilirubin 1.1 H AST 58 H ALT 42 Alkaline Phosphatase 99 Ammonia Total Protein 6.6 Albumin 2.0 L Globulin 4.6 H Albumin/Globulin Ratio 0.4 L 06/09/20 06/09/20 06/09/20 05:33 08:11 12:02 WBC RBC Hgb Hct MCV MCH MCHC RDW Std Deviation RDW Coeff of Kianna Plt Count MPV Sodium Potassium Chloride Carbon Dioxide Anion Gap BUN Creatinine Est Cr Clr Drug Dosing Est GFR ( Amer) Est GFR (Non-Af Amer) BUN/Creatinine Ratio Glucose POC Glucose 134 H 197 H Calcium Total Bilirubin AST ALT Alkaline Phosphatase Ammonia 158.0 H Total Protein Albumin Globulin Albumin/Globulin Ratio 06/09/20 17:20 WBC RBC Hgb Hct MCV MCH MCHC RDW Std Deviation RDW Coeff of Kianna Plt Count MPV Sodium Potassium Chloride Carbon Dioxide Anion Gap BUN Creatinine Est Cr Clr Drug Dosing Est GFR ( Amer) Est GFR (Non-Af Amer) BUN/Creatinine Ratio Glucose POC Glucose 176 H Calcium Total Bilirubin AST ALT Alkaline Phosphatase Ammonia Total Protein Albumin Globulin Albumin/Globulin Ratio Medications Administered Current Inpatient Medications Amlodipine Besylate (Amlodipine Besylate 5 Mg Tab) 10 mg PO QAM JENNIFER Stop: 07/04/20 08:59 Last Admin: 06/09/20 08:15 Dose: 10 mg Documented by: Lactulose 200 gm/ Sterile Water 700 ml/ BARCODE IDENTIFIER 1 ea 0 gm MO Q8H JENNIFER Stop: 07/08/20 08:59 Last Admin: 06/09/20 17:30 Dose: Not Given Documented by: Dextrose (Dextrose 50% 50 Ml Syringe) 25 - 50 ml IV UD PRN; Protocol PRN Reason: Hypoglycemia Protocol Stop: 07/03/20 23:21 Glucagon (Glucagon For Inj 1 Mg Vial) 1 mg SQ UD PRN; Protocol PRN Reason: Hypoglycemia Protocol Stop: 07/03/20 23:21 Glucose (Glucose 10 Tabs/Tube) 4 - 8 tabs PO UD PRN; Protocol PRN Reason: Hypoglycemia Protocol Stop: 07/03/20 23:21 Glucose (Glucose 40% Gel 15 Gm Tube) 15 - 30 gm PO UD PRN; Protocol PRN Reason: Hypoglycemia Protocol Stop: 07/03/20 23:21 Hydralazine HCl (Hydralazine Hcl 25 Mg Tab) 25 mg PO TID JENNIFER Stop: 07/06/20 13:59 Last Admin: 06/09/20 14:02 Dose: 25 mg Documented by: Parenteral Electrolytes (Normosol-R) 1,000 mls @ 100 mls/hr IV .Q10H [facility] Stop: 07/07/20 17:14 Last Admin: 06/09/20 17:28 Dose: 100 mls/hr Documented by: Insulin Aspart (Insulin Aspart 100 Units/Ml 3 Ml Pen) 0 units SC ACHS [facility] Stop: 07/04/20 07:29 Last Admin: 06/09/20 17:22 Dose: 14 units Documented by: Insulin Human NPH (Insulin Human Nph) 10 - 20 units SC BID [facility] Stop: 07/03/20 23:29 Last Admin: 06/09/20 08:16 Dose: 10 units Documented by: Lactulose (Lactulose Syrup 30 Gm/45 Ml Udp) 30 gm PO TID [facility] Stop: 07/09/20 08:59 Last Admin: 06/09/20 14:02 Dose: 30 gm Documented by: Miscellaneous (Carbohydrates For Hypoglycemia ) 15 - 30 gm PO UD PRN PRN Reason: Hypoglycemia Protocol Stop: 07/03/20 23:21 Miscellaneous (Unit Dose Compound) 1 ea MO Q8H [facility] Stop: 07/08/20 16:59 Last Admin: 06/09/20 17:29 Dose: Not Given Documented by: Nortriptyline HCl (Nortriptyline Hcl 25 Mg Cap) 25 mg PO HS [facility] Stop: 07/03/20 20:59 Last Admin: 06/08/20 21:22 Dose: 25 mg Documented by: Ondansetron HCl (Ondansetron Inj 2 Mg/Ml 2 Ml Vial) 4 mg IV Q6H PRN PRN Reason: Nausea Stop: 07/03/20 14:41 Pantoprazole Sodium (Pantoprazole 40 Mg Tab) 40 mg PO QAM [facility]; Protocol Stop: 07/04/20 08:59 Last Admin: 06/09/20 08:14 Dose: 40 mg Documented by: Propranolol HCl (Propranolol Hcl 20 Mg Tab) 20 mg PO TID [facility] Stop: 07/04/20 08:59 Last Admin: 06/09/20 14:02 Dose: 20 mg Documented by: Rifaximin (Rifaximin 550 Mg Tablet) 550 mg PO BID [facility] Stop: 07/03/20 20:59 Last Admin: 06/09/20 08:12 Dose: 550 mg Documented by: Sodium Bicarbonate (Sodium Bicarbonate 650 Mg Tab) 650 mg PO QAM [facility] Stop: 07/04/20 08:59 Last Admin: 06/09/20 08:14 Dose: 650 mg Documented by: PG Care Time/CCT Total # of Minutes Spent Total Time Spent: 35 Total Time Spent with Patient: Total time spent is greater than 50% in coordination of care (as documented) at patient's floor/unit and/or counseling patient: Coding Level of Care Code 73262 Subseq Hosp Care Lvl 3 Diagnoses Acute hepatic encephalopathy K72.00 Hyperammonemia E72.20 Liver cirrhosis K74.60 Hepatic cirrhosis type: unspecified hepatic cirrhosis Ascites presence: without ascites GERD (gastroesophageal reflux disease) K21.9 Esophageal varices without bleeding I85.00 Normocytic anemia D64.9 HCV (hepatitis C virus) B19.20 CKD (chronic kidney disease), stage IV N18.4 Nephrotic range proteinuria R80.9 Hypomagnesemia E83.42 Type 2 diabetes mellitus E11.9 Hypertension I10 Hyperlipidemia E78.5 Metabolic acidosis E87.2 DVT prophylaxis Z29.9 (1) Liver cirrhosis Hepatic cirrhosis type: unspecified hepatic cirrhosis Ascites presence: without ascites Qualified Code(s): K74.60 - Unspecified cirrhosis of liver
[2020-06-09] MEDS: NORTRIPTYLINE HCL 25 MG CAP PO SCH ×2 (21:35→21:52)
[2020-06-10] MEDS: UNIT DOSE COMPOUND PR SCH ×3 (01:52→18:24)
[2020-06-10] MEDS: LACTULOSE 200 GM, WATER, STERILE IRRIG 700 ML, BARCODE IDENTIFIER 1 EA PR SCH ×3 (01:52→18:24)
[2020-06-10] MEDS: NORMOSOL-R 1,000 ML IV SCH ×3 (02:51→23:00)
[2020-06-10 09:04] LABS: Est GFR (African American) 15.2; Est GFR (Non-African American) 13.1; Potassium 3.5 mmol/L (3.5-5.1)
[2020-06-10 09:05] LABS: BUN Creatinine Ratio 15.6 (10-20); Creatinine Clr Calc Pharmacy 18.5 ml/min
[2020-06-10] MEDS: amLODIPine BESYLATE 5 MG TAB PO SCH (09:18)
[2020-06-10] MEDS: SODIUM BICARBONATE 650 MG TAB PO SCH (09:18)
[2020-06-10] MEDS: PROPRANOLOL HCL 20 MG TAB PO SCH ×3 (09:18→21:21)
[2020-06-10] MEDS: PANTOprazole 40 MG TAB PO SCH (09:18)
[2020-06-10] MEDS: rifAXIMin 550 MG TABLET PO SCH ×2 (09:18→21:21)
[2020-06-10] MEDS: LACTULOSE SYRUP 30 GM/45 ML UDP PO SCH ×3 (09:19→21:22)
[2020-06-10] MEDS: hydrALAZINE HCL 25 MG TAB PO SCH ×3 (09:19→21:21)
[2020-06-10] MEDS: INSULIN ASPART 100 UNITS/ML 3 ML PEN SC SCH ×4 (09:31→21:34)
[2020-06-10] MEDS: INSULIN HUMAN NPH SC SCH ×2 (09:32→21:33)
--- NOTE | 2020-06-10 09:45 | Nephrology Progress Note ---
Date of Service June 10, 2020 Assessment & Plan (1) Acute kidney injury: * Suspect ATN related to dehydration. Cr is trending down w/ IV hydration (Cr 5.11 --> 4.4) * Renal US 06/07: ~ 11 cm kidneys, negative for obstruction * Electrolyte balance remains acceptable. No acute indication for SCIENCE LIAISON at this time * Continue gentle hydration and monitor renal response * Continue NaHCO3 650 mg po BID * Monitor PRP (2) CKD (chronic kidney disease), stage IV: * Baseline Cr has been 4 - 4.5 w/ EGFR 13 cc/min. Patient is nearing need for SCIENCE LIAISON * Nephrotic range proteinuria likely related to diabetic nephropathy (DM > 10 years, + retinopathy) * Urinalysis w/ 5 - 10 rbc/hpf (Finn sample). Serology studies including PLA2, HIV, Hep B, C3/C4/CH50 have all been normal/negative (3) Anemia: * Anemia of chronic disease * Patient had been on SQ Retacrit at [facility] * Hgb currently acceptable. Will monitor (4) Hypertension: * BP is currently acceptable * Continue amlodipine, propranolol and hydralazine (5) Acute hepatic encephalopathy: * Was not taking lactulose while at [facility] * On oral lactulose and rifamixin * Lacutlose enemas have also been ordered by primary service * Ammonia level remains elevated (158 umol/L today) (6) Liver cirrhosis: * Hep C + treated w/ Epclusa * Advanced cirrhosis w/ recurrent hyperammonemia and hepatic encephalopathy * Prognosis appears poor. Primary service/GI to consider palliative care Admission and Anticipated Discharge Date Admission Date: June 03, 2020 Subjective Alert, speaks name but not oriented to place or month. staff radiographer reports that patient was able to drink his lactulose this morning. Review of Systems Constitutional: + weakness; no fever Eyes: no problem reported Ear, Nose, Mouth, Throat: no problem reported Respiratory: no dyspnea Cardiovascular: no chest pain Gastrointestinal: no abdominal pain, no nausea and no diarrhea/loose stools Genitourinary: no dysuria, no urinary hesitancy and no hematuria Neurologic: + confusion Physical Exam Constitutional: not in distress Eyes: PERRL, conjunctivae normal, anicteric sclerae Neck: trachea midline, no thyromegaly Respiratory: normal respiratory effort, lungs clear to auscultation Cardiovascular: RRR, no murmur, no edema Gastrointestinal (Abdomen): normal bowel sounds, soft, nontender, no hepatosplenomegaly Musculoskeletal: Extremities: no cyanosis Skin: no rashes, warm and dry Neurologic: awake and + confused (oriented to self only) Results & Data ([facility]) Vital Signs (Past 12 Hours) Vital Signs Temp Pulse Resp BP Pulse Ox 06/10/20 08:00 36.4 C L 87 18 139/72 96 06/09/20 23:33 36.4 C L 87 18 126/79 98 Laboratory Results Laboratory Tests 06/09/20 06/10/20 05:33 08:21 Sodium 141 Potassium 3.5 Chloride 107 Carbon Dioxide 24 BUN 68 H Creatinine 4.38 H Ammonia 158.0 H PG Care Time/CCT Total # of Minutes Spent Total Time Spent with Patient: Total time spent is greater than 50% in coordination of care (as documented) at patient's floor/unit and/or counseling patient: Coding Level of Care Code 81465 Subseq Hosp Care Lvl 3 Diagnoses Acute kidney injury N17.9 CKD (chronic kidney disease), stage IV N18.4 Anemia D64.9 Hypertension I10 Acute hepatic encephalopathy K72.00 Liver cirrhosis K74.60 Hepatic cirrhosis type: unspecified hepatic cirrhosis Ascites presence: without ascites (1) Liver cirrhosis Hepatic cirrhosis type: unspecified hepatic cirrhosis Ascites presence: without ascites Qualified Code(s): K74.60 - Unspecified cirrhosis of liver
--- NOTE | 2020-06-10 15:19 | Hospitalist Progress Note ---
Date of Service June 10, 2020 Assessment & Plan (1) Acute hepatic encephalopathy: Suspect secondary to lack of bowel movements and missed lactulose doses as an outpatient he is ordered Lactulose 20gm QID and Rifaximin 550mg BID at [facility] he admits to refusing to take all his Lactulose at [facility] ammonia down to 88 after lactulose enema on admission, mentation was clear, encephalopathy resolved on 06/04 06/05 ammonia up to 187, unclear why, he is not moving bowels frequently lactulose enema ordered q8 since he was not awake enough to take Lactulose PO ammonia down to 110 on 06/06 and then up to 160's on 06/07 improved to 149 and then back up to 158 on 06/09 currently ordered Lactulose 30gm TID and lactulose enema q8 which he is intermittently refusing patient has a MELD score of 23 Previous hospitalist spoke with RN at [facility], he is non-compliant with taking Lactulose at [facility] reached out to [facility] for contact information for patient's family, need to discuss goals of care contact is Tramaine Moreira, number is [phone] Previous hospitalist called him on 06/09 no answer, generic voicemail that did not state that it was his phone left a basic message for him to call the hospital, provided the number for main line Will try calling this number again today Discussed care with Dr. Rm of [facility] who is in agreement with plan to reach out to family for decision on HD and CODE status, Palliative Care and if no response then would have 2 physician decision the senior care policy for patient's who cannot make decisions and are reaching a point for palliative care is two fold - attempt to speak with family so that they can offer guidance, make a decision - if no family members can be reached then two physicians can determine that the patient is palliative Previous hospitalist spoke with Dr. Thomas of GI- other than Rifaximin and Lactulose there is nothing else to provide for hepatic encephalopathy-will formally consult he has a clear history of non-compliance with the Lactulose at [facility], physician and several nurses confirmed this over the phone in my opinion the patient needs palliative care as he has no quality of life, lays in bed confused and has diarrhea all day he has advancing renal failure, close to needing dialysis in my opinion he should be on hospice, he would pass away relatively quickly if we did not force him to take lactulose and give lactulose enemas (2) Hyperammonemia: up to 158 will continue Lactulose 30 TID, give lactulose enemas repeat level in the morning see discussion above (3) Liver cirrhosis: No prior paracentesis. No prior ascites on CT taken here has h/o varices certainly it is advanced given his hyperammonia needs palliative care, see above Awaiting palliative care consult (4) GERD (gastroesophageal reflux disease): Switch omeprazole to pantoprazole as per hospital formulary. (5) Esophageal varices without bleeding: propranolol 20 mg 3 times daily as per last discharge (6) Normocytic anemia: Hgb stable on 06/05, no signs of bleeding (7) HCV (hepatitis C virus): Treated. Repeat viral loads taken at [facility]. Request results. (8) CKD (chronic kidney disease), stage IV: Cr is down to 4.38 today, better UO via [place] Continue to hold Bumex as likely he is a little intravascularly dry, continue Normosol appreciate consultation from Nephrology continue to try to make contact with patient's family regarding poor prognosis and if they would want to pursue dialysis at this point he does not need HD consult palliative care (9) Nephrotic range proteinuria: Follow-up outpatient as above (10) Hypomagnesemia: mg oxide 400 mg p.o. twice daily. (11) Type 2 diabetes mellitus: HbA1c inaccurate due to CKD, anemia and liver cirrhosis -therefore no need to repeat this. Hold outpatient Novolin 7030 regimen (55 units twice daily) Based on prior admission we will start NPH 10 to 20 units twice daily depending on BSG with NovoLog sliding scale correction and carb coverage. no hypoglycemic episodes (12) Hypertension: continue Norvasc continue Hydralazine 25mg TID (13) Hyperlipidemia: Noted history of this. Follow-up as outpatient. (14) Metabolic acidosis: Prior history of this. continue on sodium bicarbonate (15) DVT prophylaxis: SCD Add on heparin SQ given prolonged hospitalization Admission and Anticipated Discharge Date Admission Date: June 03, 2020 Subjective Pt confused, the only question he answers for me other than stating his name is if he knows where he is and he stated "I'm in [place]!" He cannot tell me the year and then states "It ain't even done yet!" He then says he has to go to the bathroom. Discussed his care with Nephrology Review of Systems Review of Systems: Unobtainable due to cognitive status Physical Exam Constitutional: WD/WN, vitals as above Eyes: + anicteric sclerae Neck: trachea midline, no thyromegaly Respiratory: normal respiratory effort, lungs clear to auscultation Cardiovascular: RRR, no murmur, no edema Chest (Breasts): Chest: normal inspection of chest Gastrointestinal (Abdomen): Inspection/Auscultation: + abdomen distended (mild) and normal bowel sounds Percussion/Palpation: abdomen soft; abdomen nontender and no guarding Musculoskeletal: Extremities: extremities normal to inspection; no cyanosis and no clubbing Skin: no rashes, warm and dry Neurologic: moves all extremities and awake; no focal motor deficits Motor/Sensory: + abnormal movement (occasionally jerks his head to the left seemingly uncontrollably); no tremor Psychiatric: Orientation: alert and oriented to person; + not oriented to place, + not oriented to time and + uncooperative Cognition: + recent memory not intact and + attention not intact Insight: + severely impaired insight Judgement: + severely impaired judgement Lymphatic: no lymphedema Results & Data Results & Data ([facility]) Vital Signs (Past 12 Hours) Vital Signs Temp Pulse Resp BP Pulse Ox 06/10/20 13:57 81 144/75 H 06/10/20 08:00 36.4 C L 87 18 139/72 96 Laboratory Results 06/10/20 06/10/20 06/10/20 Range/Units 12:14 08:21 08:15 Sodium 141 (136-145) mmol/L Potassium 3.5 (3.5-5.1) mmol/L Chloride 107 (98-107) mmol/L Carbon Dioxide 24 (21-32) mmol/L Anion Gap 10.0 (3-11) BUN 68 H (7-18) mg/dl Creatinine 4.38 H (0.6-1.4) mg/dl Est Cr Clr Drug Dosing 18.5 ml/min Est GFR ( Amer) 15.2 Est GFR (Non-Af Amer) 13.1 BUN/Creatinine Ratio 15.6 (10-20) Glucose 73 (70-99) mg/dl POC Glucose 152 H 73 (70-99) mg/dl Calcium 9.0 (8.5-10.1) mg/dl 06/09/20 06/09/20 Range/Units 20:17 17:20 Sodium (136-145) mmol/L Potassium (3.5-5.1) mmol/L Chloride (98-107) mmol/L Carbon Dioxide (21-32) mmol/L Anion Gap (3-11) BUN (7-18) mg/dl Creatinine (0.6-1.4) mg/dl Est Cr Clr Drug Dosing ml/min Est GFR ( Amer) Est GFR (Non-Af Amer) BUN/Creatinine Ratio (10-20) Glucose (70-99) mg/dl POC Glucose 117 H 176 H (70-99) mg/dl Calcium (8.5-10.1) mg/dl PG Care Time/CCT Total # of Minutes Spent Total Time Spent with Patient: Total time spent is greater than 50% in coordination of care (as documented) at patient's floor/unit and/or counseling patient: Coding Level of Care Code 58559 Subseq Hosp Care Lvl 2 Diagnoses Acute hepatic encephalopathy K72.00 Hyperammonemia E72.20 Liver cirrhosis K74.60 Ascites presence: without ascites Hepatic cirrhosis type: unspecified hepatic cirrhosis GERD (gastroesophageal reflux disease) K21.9 Esophageal varices without bleeding I85.00 Normocytic anemia D64.9 HCV (hepatitis C virus) B19.20 CKD (chronic kidney disease), stage IV N18.4 Nephrotic range proteinuria R80.9 Hypomagnesemia E83.42 Type 2 diabetes mellitus E11.9 Hypertension I10 Hyperlipidemia E78.5 Metabolic acidosis E87.2 DVT prophylaxis Z29.9 (1) Liver cirrhosis Ascites presence: without ascites Hepatic cirrhosis type: unspecified hepatic cirrhosis Qualified Code(s): K74.60 - Unspecified cirrhosis of liver
--- NOTE | 2020-06-10 19:03 | Palliative Care Consultation ---
Date of Consultation June 10, 2020 Assessment & Plan (1) Palliative care encounter: This is a 65 year old male, a permanent resident at [facility], who presented to the [facility] with altered mental status and lethargy. This patient has Stage IV Chronic Kidney Disease and liver cirrhosis secondary to Hepatitis C. The patient has had a recent inpatient hospitalization in early April and was transferred to [facility] for further work up as they were considering pursuing hemodialysis. He was stabilized and his hepatic encephalopathy improved with Lactulose. An additional hospitalization occurred May 24 - 2019 with similar symptoms. During that admission he was diagnosed with acute hepatic encephalopathy. Upon discharge, it was noted that he was refusing medications, including his Lactulose on multiple occasions over the past few weeks. The patient has a high MELD score of 23. This admission, his Ammonia levels are above 175. His renal function is trending down from 5.11 --> 4.4. Overall, this patient does require hemodialysis, but his overall condition is guarded with an un-liklihood that he will be compliant with medications and hemodialysis, even if pursued. During this hospitalization, he has been intermittently refusing medications, including Lactulose. The Hospitalists have reached out to [facility] to obtain contact information for the patients family. Dr. Rm provided the contact information of Tramaine Moreira . The hospitalists have attempted to reach this person twice to date with no positive contact. The voicemail was a generic message as well, no details left on recording. Palliative Care was consulted to assist with discussion regarding goals of care/ethical consideration with this patient as an inmate with a chronic illness and poor prognosis. -I met with this patient in room 358. There were two halfway guards present. -The patient did look at me when I approached him and was able to tell me his name and birthday.He was unable to tell me why he was in the hospital and furthermore could not provide details regarding his chronic illness. -The patient did deny pain. -Ultimately, while quality of life is individualized, this patient has remarkable history of being non-compliant with overall worsening mental status and chronic diarrhea from the medications required to improve his mental status. -alf, if this patient did pursue hemodialysis, it would be chronic and life-prolonging, with quite possible, little to no improvement of his overall condition. -In order for this patient to have a DNR/DNI placed, documentation would be necessary from two physicians indicating that CPR and intubation would be futile for the patient with no real chance of a meaningful recovery. -Dr. Rm, the rn medical surgical at [facility] is in support of a 2 MD DNR. -Multiple attempts have been made to reach the patients family, with no success. I would suggest one more attempt, equalling three phone attempts prior to making the full transition to DNR/DNI. -With regards to aggressive treatment measures, including hemodialysis, documentation from a two physicians, presumably one being a Regroover, would be helpful in elaboration of the futile state and poor quality of life associated with treatment. As this individual can not participate in a goals of care conversation, documentation with two physicians would be supported since no contact with family has been made. For now, pt remains full code. One more attempt to reach family tomorrow, 06/11. -This patient would benefit overall with hospice services upon return to [facility]. -PPS: 20% (2) HCV (hepatitis C virus): (3) Esophageal varices without bleeding: (4) CKD (chronic kidney disease), stage IV: (5) Hyperammonemia: (6) Acute confusion: History of Present Illness Reason for Consultation: Goals of Care Requesting Physician: Dr. Hess Attending Physician: Tali Crooks MD History of Present Illness This is a 65 year old male, a permanent resident at [facility], who presented to the [facility] with altered mental status and lethargy. This patient has Stage IV Chronic Kidney Disease and liver cirrhosis secondary to Hepatitis C. The patient has had a recent inpatient hospitalization in early April and was transferred to [facility] for further work up as they were considering pursuing hemodialysis. He was stabilized and his hepatic encephalopathy improved with Lactulose. An additional hospitalization occurred May 24 - 2019 with similar symptoms. During that admission he was diagnosed with acute hepatic encephalopathy. Upon discharge, it was noted that he was refusing medications, including his Lactulose on multiple occasions over the past few weeks. The patient has a high MELD score of 23. This admission, his Ammonia levels are above 175. His renal function is trending down from 5.11 --> 4.4. Overall, this patient does require hemodialysis, but his overall condition is guarded with an un-liklihood that he will be compliant with medications and hemodialysis, even if pursued. During this hospitalization, he has been intermittently refusing medications, including Lactulose. The Hospitalists have reached out to [facility] to obtain contact information for the patients family. Dr. Rm provided the contact information of Tramaine Moreira . The hospitalists have attempted to reach this person twice to date with no positive contact. The voicemail was a generic message as well, no details left on recording. Palliative Care was consulted to assist with discussion regarding goals of care/ethical consideration with this patient as an inmate with a chronic illness and poor prognosis. Please see A/P for further details. Thank you for involving the palliative care consultation service with this patient. Allergies Allergy/AdvReac Type Severity Reaction Status Date / Time No Known Allergies Allergy Unverified 05/30/20 10:42 Home Medications Home Medications Medication Instructions Recorded Confirmed Type Novolin R Flexpen 0 unit SUBCUT UD PRN 04/28/20 06/03/20 History Vitron-C 1 tab PO QAM 04/28/20 06/03/20 History epoetin amy-epbx 10,000 unit SUBCUT TH 04/28/20 06/03/20 History nortriptyline 25 mg PO HS 04/28/20 06/03/20 History omeprazole 20 mg PO QAM 04/28/20 06/03/20 History lactulose 30 ml PO QID #1200 ml 04/30/20 06/03/20 Rx Novolin 70-30 FlexPen U-100 55 unit SUBCUT BID 05/24/20 06/03/20 History Xifaxan 550 mg PO BID 05/24/20 06/03/20 History aspirin 81 mg PO QAM 05/24/20 06/03/20 History bumetanide 2 mg PO QAM 05/24/20 06/03/20 History nadolol 40 mg PO BID 05/30/20 06/03/20 History spironolactone 50 mg PO BID 05/30/20 06/03/20 History amlodipine 10 mg PO QAM 06/03/20 06/03/20 History Patient History Medical History Acute hepatic encephalopathy Acute kidney injury Allergic rhinitis Anemia, unspecified Chronic kidney disease, unspecified Esophageal varices without bleeding Flatulence GERD (gastroesophageal reflux disease) HCV (hepatitis C virus) Treated Hyperlipidemia Hypertension Liver cirrhosis Low back pain Metabolic acidosis Microscopic hematuria Onychomycosis Partial small bowel obstruction Proteinuria Pruritus, unspecified Type 2 diabetes mellitus Umbilical hernia without obstruction or gangrene Social History Smoking Status: Former smoker Hx Alcohol Use: Yes Alcohol type: beer and hard liquor Hx Substance Use: Yes Preferred Language: Armenian Communication Ability: Effective Education Department Chair Required: No Beliefs That Will Affect Care: None Current Living Situation: Other Current Living Situation Comment: Prisoner at [facility] Other Information That Helps Us Care for You: No Feels Safe at Home: Yes Assistive Devices: None Assistive Devices Comment: uses a wheelchair at [facility] Review of Systems 2 Review of Systems: Unobtainable due to cognitive status Physical Exam Constitutional: + ill appearing, + frail appearing, + lethargic and + malnourished ENMT: external ear and nose normal, oropharynx normal Neck: trachea midline, no thyromegaly Respiratory: normal respiratory effort, lungs clear to auscultation Auscultation: + diminished lung sounds Cardiovascular: Rate/Rhythm: regular rate and regular rhythm Heart Sounds: normal S1 and normal S2; no murmur Extremities: normal capillary refill and + edema Gastrointestinal (Abdomen): normal bowel sounds, soft, nontender, no hepatosplenomegaly Skin: no rashes, warm and dry Psychiatric: Orientation: alert and oriented to person Eye Contact: + poor eye contact Insight: + impaired insight Judgement: + impaired judgement Results & Data ([facility]) Vital Signs (Past 12 Hours) Vital Signs Temp Pulse Resp BP BP Pulse Ox 06/10/20 15:47 36.6 C 81 18 137/76 98 06/10/20 13:57 81 144/75 H 06/10/20 08:00 36.4 C L 87 18 139/72 96 PG Care Time/CCT Total # of Minutes Spent Total Time Spent with Patient: Total time spent is greater than 50% in coordination of care (as documented) at patient's floor/unit and/or counseling patient: 70 Coding Level of Care Code 32897 Inpt Consult Level 3 Diagnoses Palliative care encounter Z51.5 HCV (hepatitis C virus) B19.20 Esophageal varices without bleeding I85.00 CKD (chronic kidney disease), stage IV N18.4 Hyperammonemia E72.20 Acute confusion R41.0 Time Spent (min) 70 Time Spent Midlevel Total time spent 70 minutes with > 50% of that time spent assessing the patient and discussing goals of care with IDT.
[2020-06-10] MEDS: NORTRIPTYLINE HCL 25 MG CAP PO SCH (21:22)
[2020-06-10] MEDS: HEPARIN SOD 5,000 UNIT/0.5 ML VIAL SQ SCH (21:33)
[2020-06-11] MEDS: UNIT DOSE COMPOUND PR SCH ×3 (02:03→17:30)
[2020-06-11] MEDS: LACTULOSE 200 GM, WATER, STERILE IRRIG 700 ML, BARCODE IDENTIFIER 1 EA PR SCH ×3 (02:03→17:30)
[2020-06-11] MEDS: INSULIN ASPART 100 UNITS/ML 3 ML PEN SC SCH ×4 (08:56→20:48)
[2020-06-11] MEDS: HEPARIN SOD 5,000 UNIT/0.5 ML VIAL SQ SCH ×2 (08:56→20:45)
[2020-06-11] MEDS: INSULIN HUMAN NPH SC SCH ×2 (08:57→20:50)
[2020-06-11] MEDS: PROPRANOLOL HCL 20 MG TAB PO SCH ×3 (08:58→20:45)
[2020-06-11] MEDS: amLODIPine BESYLATE 5 MG TAB PO SCH (08:58)
[2020-06-11] MEDS: hydrALAZINE HCL 25 MG TAB PO SCH ×3 (08:59→20:45)
[2020-06-11] MEDS: PANTOprazole 40 MG TAB PO SCH (08:59)
[2020-06-11] MEDS: rifAXIMin 550 MG TABLET PO SCH ×2 (08:59→20:45)
[2020-06-11] MEDS: SODIUM BICARBONATE 650 MG TAB PO SCH (08:59)
[2020-06-11] MEDS: LACTULOSE SYRUP 30 GM/45 ML UDP PO SCH ×3 (08:59→20:46)
[2020-06-11 09:05] LABS: BUN Creatinine Ratio 14.9 (10-20); Calcium 8.7 mg/dl (8.5-10.1); Est GFR (African American) 15.7; Est GFR (Non-African American) 13.6; Potassium 3.6 mmol/L (3.5-5.1)
[2020-06-11] MEDS: NORMOSOL-R 1,000 ML IV SCH ×3 (09:10→23:49)
--- NOTE | 2020-06-11 09:34 | Gastrointestinal Consultation ---
Date of Consultation June 11, 2020 Assessment & Plan (1) Liver cirrhosis: 65 year old male w/ reported HCV cirrhosis treated w/ report of eso varices on BB, CKD and other comorbidities admitted w/ encephalopathy and reported missed doses of lactulose as OP. He is awake, but only oriented to self. He denies abd pain, black/bloody stools/emesis Daily MELD labs Recommend KUB for stool burden Full liver serology Low NA diet as tolerated Xifaxan 550 BID Lactulose titrated to 2/3 BM daily Appreciate nephrology input Avoid hepato/renal toxins Daily I/O Less than 2G tylenol No ETOH Thank you for allowing us to participate in the care of this patient. Please call with any acute changes, questions or concerns. Please see addendum below with additional recommendation from my supervising physician. Supervising Physician Co-Signing Physician Notes I saw and evaluated the patient. We were consulted due to refractory hepatic encephalopathy. Based on available notes it appears that the patient has been somewhat resistant to medical therapies as previously recommended. The patient does have underlying renal insufficiency and I wonder if this could be related to underlying hepatorenal syndrome. Agree with continued nephrology follow-up. Should the patient have HRS he may need referral to a tertiary center for further evaluation Recommendations Restart rifaximin 550 mg twice daily Consider use of lactulose enemas History of Present Illness Reason for Consultation: HE Requesting Physician: Valeriy Attending Physician: Tali Crooks MD History of Present Illness 65 year old inmate w/ history of diabetes, worsening renal failure, hypertension, hyperlipidemia, GERD, suspected HCV (treated) cirrhosis w/ history of varices and is on beta blockers who is admitted through the ED w/ alternated mental status 06/03 - GI asked to evaluate today for ongoing mental status changes. Pt was seen and evaluated, two guards at bedside. He is awake and orietned to self. Unable to tell me location, date etc. He denies any abd pain. No nausea/vomiting. He tells me he is moving his bowels but unsure of color - per chart stool documented 06/09 as brown. No black or bloody stools. MELD 22 which is creat driven CTAP 05/24/2020: Question an early/developing or partial small bowel obstruction as above with a transition point seen in the central pelvis. No intraperitoneal free air is identified and there is no abdominal ascites.No focally thick walled bowel loops are identified. There is no pneumatosis intestinalis or portal venous gas.Cirrhotic liver morphology.Cholelithiasis. Nonspecific bilateral perinephric stranding is similar to previous. Correlation with clinical findings and urinalysis will be required.Cardiomegaly and small hiatal hernia. Moderate constipation. Allergies Allergy/AdvReac Type Severity Reaction Status Date / Time No Known Allergies Allergy Unverified 05/30/20 10:42 Home Medications Home Medications Medication Instructions Recorded Confirmed Type Novolin R Flexpen 0 unit SUBCUT UD PRN 04/28/20 06/03/20 History Vitron-C 1 tab PO QAM 04/28/20 06/03/20 History epoetin amy-epbx 10,000 unit SUBCUT TH 04/28/20 06/03/20 History nortriptyline 25 mg PO HS 04/28/20 06/03/20 History omeprazole 20 mg PO QAM 04/28/20 06/03/20 History lactulose 30 ml PO QID #1200 ml 04/30/20 06/03/20 Rx Novolin 70-30 FlexPen U-100 55 unit SUBCUT BID 05/24/20 06/03/20 History Xifaxan 550 mg PO BID 05/24/20 06/03/20 History aspirin 81 mg PO QAM 05/24/20 06/03/20 History bumetanide 2 mg PO QAM 05/24/20 06/03/20 History nadolol 40 mg PO BID 05/30/20 06/03/20 History spironolactone 50 mg PO BID 05/30/20 06/03/20 History amlodipine 10 mg PO QAM 06/03/20 06/03/20 History Patient History Medical History (Updated 06/10/20 @ 22:23 by NERI Villar) Acute hepatic encephalopathy Acute kidney injury Allergic rhinitis Anemia, unspecified Chronic kidney disease, unspecified Esophageal varices without bleeding Flatulence GERD (gastroesophageal reflux disease) HCV (hepatitis C virus) Treated Hyperlipidemia Hypertension Liver cirrhosis Low back pain Metabolic acidosis Microscopic hematuria Onychomycosis Palliative care encounter Partial small bowel obstruction Proteinuria Pruritus, unspecified Type 2 diabetes mellitus Umbilical hernia without obstruction or gangrene Social History Smoking Status: Former smoker Hx Alcohol Use: Yes Alcohol type: beer and hard liquor Hx Substance Use: Yes Preferred Language: Yemeni Communication Ability: Effective Ballet Professor Required: No Beliefs That Will Affect Care: None Current Living Situation: Other Current Living Situation Comment: Prisoner at [facility] Other Information That Helps Us Care for You: No Feels Safe at Home: Yes Assistive Devices: Walker Assistive Devices Comment: uses a wheelchair at [facility] Review of Systems Review of Systems: Unobtainable due to cognitive status Physical Exam Constitutional: well developed, well nourished and + ill appearing (chronically ill appearing); no acute distress Neck: trachea midline Respiratory: normal respiratory effort Gastrointestinal (Abdomen): Percussion/Palpation: abdomen soft; abdomen nontender Skin: no rashes, warm and dry Results & Data ([facility]) Vital Signs (Past 12 Hours) Vital Signs Temp Pulse Pulse Resp BP Pulse Ox 06/11/20 07:30 36.4 C L 87 18 137/71 99 06/10/20 23:45 36.6 C 83 20 164/74 H 97 Laboratory Results 06/11/20 06/11/20 06/11/20 Range/Units 08:35 08:35 08:35 Sodium 138 (136-145) mmol/L Potassium 3.6 (3.5-5.1) mmol/L Chloride 105 (98-107) mmol/L Carbon Dioxide 24 (21-32) mmol/L Anion Gap 9.0 (3-11) BUN 64 H (7-18) mg/dl Creatinine 4.25 H (0.6-1.4) mg/dl Est Cr Clr Drug Dosing 19.0 ml/min Est GFR ( Amer) 15.7 Est GFR (Non-Af Amer) 13.6 BUN/Creatinine Ratio 14.9 (10-20) Glucose 150 H (70-99) mg/dl POC Glucose 149 H (70-99) mg/dl Calcium 8.7 (8.5-10.1) mg/dl Ammonia 140.9 H (11-32) umol/L 06/10/20 06/10/20 06/10/20 Range/Units 20:41 17:13 12:14 Sodium (136-145) mmol/L Potassium (3.5-5.1) mmol/L Chloride (98-107) mmol/L Carbon Dioxide (21-32) mmol/L Anion Gap (3-11) BUN (7-18) mg/dl Creatinine (0.6-1.4) mg/dl Est Cr Clr Drug Dosing ml/min Est GFR ( Amer) Est GFR (Non-Af Amer) BUN/Creatinine Ratio (10-20) Glucose (70-99) mg/dl POC Glucose 177 H 194 H 152 H (70-99) mg/dl Calcium (8.5-10.1) mg/dl Ammonia (11-32) umol/L (1) Liver cirrhosis Ascites presence: without ascites Hepatic cirrhosis type: unspecified hepatic cirrhosis Qualified Code(s): K74.60 - Unspecified cirrhosis of liver
[2020-06-11] MEDS ORDERED: LACTULOSE 200 GM, WATER, STERILE IRRIG 700 ML, BARCODE IDENTIFIER 1 EA PR SCH (09:50)
--- NOTE | 2020-06-11 10:36 | Nephrology Progress Note ---
Date of Service June 11, 2020 Assessment & Plan (1) Acute kidney injury: * Suspect ATN related to dehydration. Cr is trending down w/ IV hydration (Cr 5.11 --> 4.2) * Renal US 06/07: ~ 11 cm kidneys, negative for obstruction * Electrolyte balance remains acceptable. No acute indication for FAST FOOD SHIFT SUPERVISOR at this time * Continue gentle hydration and monitor renal response * Continue NaHCO3 650 mg po BID * Monitor PRP (2) CKD (chronic kidney disease), stage IV: * Baseline Cr has been 4 - 4.5 w/ EGFR 13 cc/min. Patient has advanced renal impairment and is nearing need for FAST FOOD SHIFT SUPERVISOR. He is a poor dialysis candidate due to recurrent hepatic encephalopathy. Encephalopathy impairs his cognition and ability to consent/cooperate with medical treatments such as dialysis. If encephalopathy cannot be reliably corrected, dialysis will not provide him with quality of life and should not be pursued. 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 Serology studies including PLA2, HIV, Hep B, C3/C4/CH50 have all been normal/negative (3) Anemia: * Anemia of chronic disease * Patient had been on SQ Retacrit at [facility] * Hgb currently acceptable. Will monitor (4) Hypertension: * BP is currently acceptable * Continue amlodipine, propranolol and hydralazine (5) Acute hepatic encephalopathy: * Was not taking lactulose while at [facility] * On oral lactulose and rifamixin * Lacutlose enemas have also been ordered by primary service * Ammonia level remains elevated (158 umol/L today) (6) Liver cirrhosis: * Hep C + treated w/ Epclusa * Advanced cirrhosis w/ recurrent hyperammonemia and hepatic encephalopathy * Prognosis appears poor. Primary service/GI to consider palliative care Admission and Anticipated Discharge Date Admission Date: June 03, 2020 Subjective Alert, speaks name but not oriented to place or month Review of Systems Constitutional: + weakness; no fever Eyes: no problem reported Ear, Nose, Mouth, Throat: no problem reported Respiratory: no dyspnea Cardiovascular: no chest pain and no edema Gastrointestinal: no abdominal pain, no vomiting and no diarrhea/loose stools Genitourinary: no dysuria, no urinary hesitancy and no hematuria Musculoskeletal: no back pain Integumentary: no rash Neurologic: + confusion Physical Exam Constitutional: not in distress Eyes: PERRL, conjunctivae normal, anicteric sclerae Neck: trachea midline, no thyromegaly Respiratory: normal respiratory effort, lungs clear to auscultation Cardiovascular: RRR, no murmur, no edema Gastrointestinal (Abdomen): normal bowel sounds, soft, nontender, no hepatosplenomegaly Musculoskeletal: Extremities: no cyanosis Skin: no rashes, warm and dry Neurologic: awake and + confused (oriented to self only) Results & Data ([facility]) Vital Signs (Past 12 Hours) Vital Signs Temp Pulse Pulse Resp BP Pulse Ox 06/11/20 07:30 36.4 C L 87 18 137/71 99 06/10/20 23:45 36.6 C 83 20 164/74 H 97 Laboratory Results Laboratory Tests 06/11/20 06/11/20 08:35 08:35 Sodium 138 Potassium 3.6 Chloride 105 Carbon Dioxide 24 BUN 64 H Creatinine 4.25 H Glucose 150 H Ammonia 140.9 H PG Care Time/CCT Total # of Minutes Spent Total Time Spent with Patient: Total time spent is greater than 50% in coordination of care (as documented) at patient's floor/unit and/or counseling patient: Coding Level of Care Code 16081 Subseq Hosp Care Lvl 3 Diagnoses Acute kidney injury N17.9 CKD (chronic kidney disease), stage IV N18.4 Anemia D64.9 Hypertension I10 Acute hepatic encephalopathy K72.00 Liver cirrhosis K74.60 Hepatic cirrhosis type: unspecified hepatic cirrhosis Ascites presence: without ascites (1) Liver cirrhosis Hepatic cirrhosis type: unspecified hepatic cirrhosis Ascites presence: without ascites Qualified Code(s): K74.60 - Unspecified cirrhosis of liver
[2020-06-11] MEDS ORDERED: LACTULOSE 200 GM, WATER, STERILE IRRIG 700 ML, BARCODE IDENTIFIER 1 EA PR PRN (18:06)
[2020-06-11] MEDS ORDERED: UNIT DOSE COMPOUND PR PRN (18:30)
--- NOTE | 2020-06-11 19:58 | Hospitalist Progress Note ---
Date of Service June 11, 2020 Assessment & Plan (1) Acute hepatic encephalopathy: Suspect secondary to lack of bowel movements and missed lactulose doses as an outpatient Ammonia levels remain quite elevated despite use of lactulose 30gm TID and Rifaximin 550mg BID Nursing reports from the long-term are that he frequently refuses to take all his Lactulose Initially, his ammonia down to 88 after lactulose enema on admission, mentation was clear, encephalopathy resolved on 06/04 06/05 ammonia up to 187, unclear why,-at that point he was ordered lactulose enemas ammonia down to 110 on 06/06 and then up to 160's on 06/07 improved to 149 and then back up to 158 on 06/09 and down to 140 on 06/11 with persistent encephalopathy on examination -He is a little bit more alert today but remains quite confused, however he is agreeable to taking all of his medications for last 24 hours patient has a MELD score of 23 Appreciate GI consultation for refractory hepatic encephalopathy with recommendations as follows: Daily MELD labs Recommend KUB for stool burden Full liver serology Low NA diet as tolerated Xifaxan 550 BID Lactulose titrated to 2/3 BM daily Appreciate nephrology input Avoid hepato/renal toxins Daily I/O Less than 2G tylenol No ETOH -GI suspected hepatorenal syndrome and recommended tertiary care transfer if not improving. Nephrology said that this patient would not be a good candidate for dialysis if he is noncompliant with his medications to prevent hepatic encep halopathy. I reached out to [facility] for contact information for patient's family, need to discuss goals of care contact is Tramaine Moreira (the patient's brother), number is [phone] Previous hospitalist called him on 06/09 no answer, generic voicemail that did not state that it was his phone and left a basic message for him to call the hospital, provided the number for main line I called on 06/10 again with no answer and left a voicemail on the generic voicemail I called on 06/11 and did speak with Tramaine Moreira' who seemed genuinely concerned about the patient and said she would have her call the [facility] main phone number which I gave to her to discuss his condition with me -As of 8:06 PM on 06/11/2020, I still have not heard back from the brother Discussed care with Dr. Rm of [facility] who is in agreement with plan to reach out to family for decision on HD and CODE status, Palliative Care and if no response then would have 2 physician decision the long-term policy for patient's who cannot make decisions and are reaching a point for palliative care is two fold - attempt to speak with family so that they can offer guidance, make a decision - if no family members can be reached then two physicians can determine that the patient is palliative he has a clear history of non-compliance with the Lactulose at [facility], physician and several nurses confirmed this over the phone in my opinion the patient needs palliative care as he has no quality of life, lays in bed confused and has diarrhea all day he has advancing renal failure, close to needing dialysis in my opinion he should be on hospice, he would pass away relatively quickly if we did not force him to take lactulose and give lactulose enemas (2) Hyperammonemia: As above (3) Liver cirrhosis: No prior paracentesis. No prior ascites on CT taken here has h/o varices certainly it is advanced given his hyperammonia Appreciate palliative care consultation (4) GERD (gastroesophageal reflux disease): Switch omeprazole to pantoprazole as per hospital formulary. (5) Esophageal varices without bleeding: propranolol 20 mg 3 times daily as per last discharge (6) Normocytic anemia: Hgb stable on 06/05, no signs of bleeding (7) HCV (hepatitis C virus): Treated. Repeat viral loads taken at [facility]. Request results. (8) CKD (chronic kidney disease), stage IV: Cr is down to 4.24 today, better UO via [place] Continue to hold Bumex as likely he is a little intravascularly dry, continue Normosol appreciate consultation from Nephrology continue to try to make contact with patient's family regarding poor prognosis and if they would want to pursue dialysis at this point he does not need HD but is approaching the need but would not be a good candidate if cannot reliably take his medications to prevent hepatic encephalopathy as above consult palliative care (9) Nephrotic range proteinuria: Follow-up outpatient as above (10) Hypomagnesemia: mg oxide 400 mg p.o. twice daily. (11) Type 2 diabetes mellitus: HbA1c inaccurate due to CKD, anemia and liver cirrhosis -therefore no need to repeat this. Hold outpatient Novolin 7030 regimen (55 units twice daily) Based on prior admission we will start NPH 10 to 20 units twice daily depending on BSG with NovoLog sliding scale correction and carb coverage. no hypoglycemic episodes (12) Hypertension: continue Norvasc continue Hydralazine 25mg TID (13) Hyperlipidemia: Noted history of this. Follow-up as outpatient. (14) Metabolic acidosis: Prior history of this. continue on sodium bicarbonate (15) DVT prophylaxis: SCD Heparin SQ Disposition-continued stay, poor overall prognosis We will continue to try to reach out to family member 1 more time on 06/12 Appreciate palliative care consultation Admission and Anticipated Discharge Date Admission Date: June 03, 2020 Subjective Patient remains quite confused. He will not interact with me but just looks at me. At one point he yells out something nonsensical. When asked if he has any pain, he does not answer. He then spit a large amount of sputum directly onto the right side of his chest in my direction and then looked at me. His long-term guards at the bedside do report they think he is a little bit more alert and interactive today than previous day. Review of Systems Review of Systems: Unobtainable due to cognitive status Physical Exam Constitutional: WD/WN, vitals as above Eyes: + anicteric sclerae Neck: trachea midline, no thyromegaly Respiratory: normal respiratory effort, lungs clear to auscultation Cardiovascular: RRR, no murmur, no edema Chest (Breasts): Chest: normal inspection of chest Gastrointestinal (Abdomen): Inspection/Auscultation: + abdomen distended (mild) and normal bowel sounds Percussion/Palpation: abdomen soft; abdomen nontender and no guarding Musculoskeletal: Extremities: extremities normal to inspection; no cyanosis and no clubbing Skin: no rashes, warm and dry Neurologic: moves all extremities and awake; no focal motor deficits Motor/Sensory: no tremor Psychiatric: Orientation: alert; + not oriented to place, + not oriented to time and + uncooperative Cognition: + recent memory not intact and + attention not intact Insight: + severely impaired insight Judgement: + severely impaired judgement Lymphatic: no lymphedema Results & Data Results & Data ([facility]) Vital Signs (Past 12 Hours) Vital Signs Temp Pulse Resp BP Pulse Ox 06/11/20 15:41 36.3 C L 88 20 129/67 97 Laboratory Results 06/11/20 06/11/20 06/11/20 Range/Units 17:08 12:22 08:35 Sodium (136-145) mmol/L Potassium (3.5-5.1) mmol/L Chloride (98-107) mmol/L Carbon Dioxide (21-32) mmol/L Anion Gap (3-11) BUN (7-18) mg/dl Creatinine (0.6-1.4) mg/dl Est Cr Clr Drug Dosing ml/min Est GFR ( Amer) Est GFR (Non-Af Amer) BUN/Creatinine Ratio (10-20) Glucose (70-99) mg/dl POC Glucose 129 H 127 H 149 H (70-99) mg/dl Calcium (8.5-10.1) mg/dl Ammonia (11-32) umol/L 06/11/20 06/11/20 06/10/20 Range/Units 08:35 08:35 20:41 Sodium 138 (136-145) mmol/L Potassium 3.6 (3.5-5.1) mmol/L Chloride 105 (98-107) mmol/L Carbon Dioxide 24 (21-32) mmol/L Anion Gap 9.0 (3-11) BUN 64 H (7-18) mg/dl Creatinine 4.25 H (0.6-1.4) mg/dl Est Cr Clr Drug Dosing 19.0 ml/min Est GFR ( Amer) 15.7 Est GFR (Non-Af Amer) 13.6 BUN/Creatinine Ratio 14.9 (10-20) Glucose 150 H (70-99) mg/dl POC Glucose 177 H (70-99) mg/dl Calcium 8.7 (8.5-10.1) mg/dl Ammonia 140.9 H (11-32) umol/L PG Care Time/CCT Total # of Minutes Spent Total Time Spent with Patient: Total time spent is greater than 50% in coordination of care (as documented) at patient's floor/unit and/or counseling patient: Coding Level of Care Code 33301 Subseq Hosp Care Lvl 2 Diagnoses Acute hepatic encephalopathy K72.00 Hyperammonemia E72.20 Liver cirrhosis K74.60 Hepatic cirrhosis type: unspecified hepatic cirrhosis Ascites presence: without ascites GERD (gastroesophageal reflux disease) K21.9 Esophageal varices without bleeding I85.00 Normocytic anemia D64.9 HCV (hepatitis C virus) B19.20 CKD (chronic kidney disease), stage IV N18.4 Nephrotic range proteinuria R80.9 Hypomagnesemia E83.42 Type 2 diabetes mellitus E11.9 Hypertension I10 Hyperlipidemia E78.5 Metabolic acidosis E87.2 DVT prophylaxis Z29.9 (1) Liver cirrhosis Hepatic cirrhosis type: unspecified hepatic cirrhosis Ascites presence: without ascites Qualified Code(s): K74.60 - Unspecified cirrhosis of liver
--- NOTE | 2020-06-11 20:35 | XRay Report ---
KUB HISTORY: Acute generalized abdominal pain with constipation assess stool burden COMPARISON: CT abdomen and pelvis 2019 FINDINGS: Nonobstructive bowel gas pattern. Moderate to extensive fecal retention with mild gaseous d istention of the colon. No renal calculi. No ureteral calculi. No pneumoperitoneum or pneumatosis. N o fracture. IMPRESSION: 1. Nonobstructive bowel gas pattern. 2. Moderate to extensive fecal retention with mild colonic gaseous distention. ACT 112: Negative or not required by law. The above report was generated using voice recognition software. It may contain grammatical, syntax o r spelling errors. Electronically signed by: Martin Tirado M.D. 06/11/2020 8:33 PM
[2020-06-11] MEDS: NORTRIPTYLINE HCL 25 MG CAP PO SCH (20:45)
[2020-06-12 06:37] LABS: Hematocrit (blood only) 27.3 % (42-52); Hemoglobin 9.6 g/dL (14.0-18.0); Mean Corpuscular Hemoglobin 32.7 pg (25-34); Mean Corpuscular Hgb Conc 35.2 g/dL (32-36); Mean Corpuscular Volume 92.9 fL (80-100); RDW Coefficient of Variation 14.7 % (11.5-14.5); RDW Standard Deviation 48.5 fL (36.4-46.3); Red Blood Count 2.94 M/uL (4.7-6.1)
[2020-06-12 06:41] LABS: INR 1.2 (0.9-1.1); Prothrombin Time 12.8 Seconds (9.0-12.0)
[2020-06-12 07:04] LABS: Albumin Level 1.9 gm/dl (3.4-5.0); BUN Creatinine Ratio 14.1 (10-20); Bilirubin Direct 0.4 mg/dl (0-0.2); Calcium 8.7 mg/dl (8.5-10.1); Creatinine Clr Calc Pharmacy 18.5 ml/min; Est GFR (African American) 15.2; Est GFR (Non-African American) 13.1; Potassium 3.6 mmol/L (3.5-5.1)
[2020-06-12 07:07] LABS: Bilirubin,Total 1.2 mg/dl (0.2-1); Total Protein 6.4 gm/dl (6.4-8.2)
[2020-06-12 07:19] LABS: Mean Platelet Volume 10.3 fL (7.4-10.4); Platelet Count 95 K/uL (130-400)
[2020-06-12 07:20] LABS: Basophils # (auto) 0.01 K/uL (0-0.2); Basophils % (auto) 0.2 %; Eosinophils # (auto) 0.04 K/uL (0-0.5); Eosinophils % (auto) 0.8 %; Immature Granulocytes # (auto) 0.01 K/uL (0.00-0.02); Immature Granulocytes % (auto) 0.2 %; Lymphocytes # (auto) 1.18 K/uL (1.2-3.4); Lymphocytes % (auto) 23.1 %; Monocytes # (auto) 1.07 K/uL (0.11-0.59); Neutrophils # (auto) 2.79 K/uL (1.4-6.5); Neutrophils % (auto) 54.7 %; Platelet Estimate Decreased (Normal)
[2020-06-12] MEDS: NORMOSOL-R 1,000 ML IV SCH ×2 (10:01→19:29)
[2020-06-12] MEDS: INSULIN ASPART 100 UNITS/ML 3 ML PEN SC SCH ×4 (10:02→21:31)
[2020-06-12] MEDS: amLODIPine BESYLATE 5 MG TAB PO SCH (10:05)
[2020-06-12] MEDS: INSULIN HUMAN NPH SC SCH ×2 (10:05→21:30)
[2020-06-12] MEDS: PROPRANOLOL HCL 20 MG TAB PO SCH ×3 (10:06→21:25)
[2020-06-12] MEDS: PANTOprazole 40 MG TAB PO SCH (10:06)
[2020-06-12] MEDS: rifAXIMin 550 MG TABLET PO SCH ×2 (10:06→21:25)
[2020-06-12] MEDS: SODIUM BICARBONATE 650 MG TAB PO SCH (10:06)
[2020-06-12] MEDS: LACTULOSE SYRUP 30 GM/45 ML UDP PO SCH ×3 (10:07→21:25)
[2020-06-12] MEDS: HEPARIN SOD 5,000 UNIT/0.5 ML VIAL SQ SCH ×2 (10:07→21:29)
[2020-06-12] MEDS: hydrALAZINE HCL 25 MG TAB PO SCH ×3 (10:07→21:25)
--- NOTE | 2020-06-12 11:28 | Gastroenterology Progress Note ---
Date of Service June 12, 2020 Assessment & Plan (1) Liver cirrhosis: 65 year old male w/ reported HCV cirrhosis treated w/ report of eso varices on BB, CKD and other comorbidities admitted w/ encephalopathy and reported missed doses of lactulose as OP. He is awake, able to answer some que stions such as name, , where he was born but does not answer other questions. Affect is very dull. Motions are very slow. Seems generally weak. Kidney labs are slightly worse today. 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 Enc pt to take lactulose enemas. Consider referral to tertiary care center - worsening renal status. Thank you for allowing us to participate in the care of this patient. Please call with any acute changes, questions or concerns. Please see addendum below with additional recommendation from my supervising physician. Admission and Anticipated Discharge Date Admission Date: June 03, 2020 Supervising Physician Co-Signing Physician Notes I saw and evaluated the patient. His mentation does seem to be somewhat better today although he is still slow to answer questions. Recommendations Continue with lactulose enemas Continue with rifaximin twice daily Consider referral to a tertiary center given his renal failure Subjective Mr. Chicho Moreira is a 65 yr old admitted on 06/03 for cirrhosis with hepatic encephalopathy. Report that he refuses medications at [facility] is likely the trigger for this episode. Today: pt is able to tell me his full name, that this is 2020 and that he was born in [place]. However, he seems dull, weak, and is minimally motivated to take meds, often refusing. At the time that I saw him this morning, he had refused po Meds and enema, but his RN and I were able to college sports coach him to drink one dose of lactulose. Rifaximin also ordered but again often refuses. Most recent ammonia yesterday: 140. BUN/Cr today:62/4.38, nephrology following. Review of Systems Constitutional: + fatigue and + weakness; no fever Ear, Nose, Mouth, Throat: denies issues Respiratory: no cough, no dyspnea and no wheezing Cardiovascular: no chest pain and no palpitations Additional Comments: slight bilat lower leg edema Gastrointestinal: no abdominal pain and no vomiting Genitourinary: no dysuria Musculoskeletal: no problem reported Integumentary: no rash and no lesions no skin color changes Neurologic: + tremor(s) (mild) and + confusion Psychiatric: + change in appetite (decreased) Hematologic / Lymphatic: no easy bleeding and no easy bruising Physical Exam Constitutional: WD/WN, vitals as above + ill appearing, + obese (mildly) and + altered mental status (dull, slow mumbled speech, ) Eyes: PERRL no icterus ENMT: external ear and nose normal, oropharynx normal Neck: trachea midline, no thyromegaly Respiratory: normal respiratory effort, lungs clear to auscultation Cardiovascular: Rate/Rhythm: regular rate and regular rhythm Extremities: + edema (1+ bilat lower leg edema) Gastrointestinal (Abdomen): Inspection/Auscultation: normal bowel sounds; abdomen not distended Percussion/Palpation: abdomen soft Skin: no rashes, warm and dry Neurologic: PERRL, EOMI, accommodation nl, no face palsy, no dysarthria moves all extremities Speech / Cognition: + abnormal speech (slow, mumbled) Motor/Sensory: + tremor (mild with trying to lift his water; unable to elicit asterix) Psychiatric: oriented to person, place; able to deny discomfort; some adjunct faculty for medical terminology memory intact but not answering any other specific questions. Lymphatic: no cervical or axillary lymphadenopathy Results & Data ([facility]) Vital Signs (Past 12 Hours) Vital Signs Temp Pulse Resp BP Pulse Ox 06/12/20 08:35 36.6 C 89 18 132/68 98 Laboratory Results WBC 2.9, Hb 9.6, Hct 27.3, Platlets 95, Na 135, K 3.6, BUN 62, Cr 4.38, platelets 154. (1) Liver cirrhosis Ascites presence: without ascites Hepatic cirrhosis type: unspecified hepatic cirrhosis Qualified Code(s): K74.60 - Unspecified cirrhosis of liver
--- NOTE | 2020-06-12 13:31 | Nephrology Progress Note ---
Date of Service June 12, 2020 Assessment & Plan (1) Acute kidney injury: * Suspect ATN related to dehydration. Cr is trending down w/ IV hydration (Cr 5.11 --> 4.3) * Renal US 06/07: ~ 11 cm kidneys, negative for obstruction * Electrolyte balance remains acceptable. No acute indication for PROFESSOR OF ENGLISH at this time * Continue gentle hydration and monitor renal response * Continue NaHCO3 650 mg po BID * Monitor PRP (2) CKD (chronic kidney disease), stage IV: * Baseline Cr has been 4 - 4.5 w/ EGFR 13 cc/min. Patient has advanced renal impairment and is nearing need for PROFESSOR OF ENGLISH. He is a poor dialysis candidate due to recurrent hepatic encephalopathy. Encephalopathy impairs his cognition and ability to consent/cooperate with medical treatments such as dialysis. If encephalopathy cannot be reliably corrected, dialysis will not provide him with quality of life and should not be pursued. 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 Serology studies including PLA2, HIV, Hep B, C3/C4/CH50 have all been normal/negative (3) Anemia: * Anemia of chronic disease * Patient had been on SQ Retacrit at [facility] * Hgb trending down. Will provide one dose CECY today (4) Hypertension: * BP is currently acceptable * Continue amlodipine, propranolol and hydralazine (5) Acute hepatic encephalopathy: * Was not taking lactulose while at [facility] * On oral lactulose and rifamixin * Lacutlose enemas have also been ordered by primary service * Ammonia level remains elevated (158 umol/L today) (6) Liver cirrhosis: * Hep C + treated w/ Epclusa * Advanced cirrhosis w/ recurrent hyperammonemia and hepatic encephalopathy * Prognosis appears poor. Await further input from GI & palliative care Admission and Anticipated Discharge Date Admission Date: June 03, 2020 Subjective Mr. Moreira was seen & examined in his hospital room this morning. He was al ert but oriented to self only. He voiced no new medical concerns. Review of Systems Constitutional: + weakness; no fever Eyes: no problem reported Ear, Nose, Mouth, Throat: no problem reported Respiratory: no dyspnea Cardiovascular: no chest pain, no palpitations and no edema Gastrointestinal: no abdominal pain, no nausea, no vomiting and no diarrhea/loose stools Genitourinary: no hematuria Musculoskeletal: no back pain Integumentary: no rash Neurologic: + confusion Physical Exam Constitutional: not in distress Eyes: PERRL, conjunctivae normal, anicteric sclerae Neck: trachea midline, no thyromegaly Respiratory: normal respiratory effort, lungs clear to auscultation Cardiovascular: RRR, no murmur, no edema Gastrointestinal (Abdomen): normal bowel sounds, soft, nontender, no hepatosplenomegaly Musculoskeletal: Extremities: no cyanosis Skin: no rashes, warm and dry Neurologic: awake and + confused (oriented to self only) Results & Data ([facility]) Vital Signs (Past 12 Hours) Vital Signs Temp Pulse Resp BP Pulse Ox 06/12/20 08:35 36.6 C 89 18 132/68 98 Laboratory Tests 06/12/20 06/12/20 06:11 06:11 WBC 5.10 Hgb 9.6 L Hct 27.3 L Plt Count 95 L Sodium 139 Potassium 3.6 Chloride 105 Carbon Dioxide 23 BUN 62 H Creatinine 4.38 H PG Care Time/CCT Total # of Minutes Spent Total Time Spent with Patient: Total time spent is greater than 50% in coordination of care (as documented) at patient's floor/unit and/or counseling patient: Coding Level of Care Code 51289 Subseq Hosp Care Lvl 3 Diagnoses Acute kidney injury N17.9 CKD (chronic kidney disease), stage IV N18.4 Anemia D64.9 Hypertension I10 Acute hepatic encephalopathy K72.00 Liver cirrhosis K74.60 Hepatic cirrhosis type: unspecified hepatic cirrhosis Ascites presence: without ascites (1) Liver cirrhosis Hepatic cirrhosis type: unspecified hepatic cirrhosis Ascites presence: without ascites Qualified Code(s): K74.60 - Unspecified cirrhosis of liver
[2020-06-12] MEDS ORDERED: EPOETIN ALFA 10,000 UNITS/ML VIAL SQ ONE (15:00)
--- NOTE | 2020-06-12 15:40 | Palliative Care Progress Note ---
Date of Service June 12, 2020 Assessment & Plan (1) Palliative care encounter: -I met with this patient in room 358. There were two assisted guards present. -The patient was able to look at me, but had garbled speech throughout my visit. Per nursing, he was compliant with his Lactulose today. Ammonia levels are in the 160's. -Ultimately, while quality of life is individualized, this patient has remarkable history of being non-compliant with overall worsening mental status and chronic diarrhea from the medications required to improve his mental status. -senior living, if this patient did pursue hemodialysis, it would be chronic and life-prolonging, with quite possible, little to no improvement of his overall condition. His current creatinine is 4.61 - I did talk with the nurse navigator, Machelle, who said that Jolene at [facility] had an additional contact # for family. -I spoke with Jolene at [facility] who stated that she reached out to the patients niece, Tennille, and her brother, Tramaine. New phone number . - I phoned that number directly and spoke initially to Tennille who passed the phone to her father, Tramaine, who is inpatient at a hospital in [facility], near [place]. -We talked at length about his condition. He said he talked last with him 3 weeks ago. He said 'if he takes his meds, he will be fine." -I was pretty blunt regarding his condition and brought up code status. No definitive change was made. I am not confident that he will be able to make a sound medical decision, but said that we can readdress tomorrow with a phone call and hopefully answer some additional questions. Should we feel that the patients brother is unable to make a decision regarding code status, we could discuss further with his niece, Tennille. -In order for this patient to have a DNR/DNI placed, documentation would be necessary from two physicians indicating that CPR and intubation would be futile for the patient with no real chance of a meaningful recovery. -Dr. Rm, the medical chemist at [facility] is in support of a 2 MD DNR. -With regards to aggressive treatment measures, including hemodialysis, documentation from a two physicians, presumably one being a Air Bag Curer, would be helpful in elaboration of the futile state and poor quality of life associated with treatment. As this individual can not participate in a goals of care conversation, documentation with two physicians would be supported since no contact with family has been made. For now, pt remains full code. -This patient would benefit overall with hospice services upon return to [facility]. -PPS: 20% (2) HCV (hepatitis C virus): (3) Esophageal varices without bleeding: (4) CKD (chronic kidney disease), stage IV: (5) Hyperammonemia: (6) Acute confusion: Admission and Anticipated Discharge Date Admission Date: June 03, 2020 Physical Exam Constitutional: + ill appearing, + frail appearing, + lethargic and + malnourished ENMT: external ear and nose normal, oropharynx normal Neck: trachea midline, no thyromegaly Respiratory: normal respiratory effort, lungs clear to auscultation Auscultation: + diminished lung sounds Cardiovascular: Rate/Rhythm: regular rate and regular rhythm Heart Sounds: normal S1 and normal S2; no murmur Extremities: normal capillary refill and + edema Gastrointestinal (Abdomen): normal bowel sounds, soft, nontender, no hepatosplenomegaly Skin: no rashes, warm and dry Psychiatric: Orientation: alert and oriented to person Eye Contact: + poor eye contact Insight: + impaired insight Judgement: + impaired judgement Results & Data ([facility]) Vital Signs (Past 12 Hours) Vital Signs Temp Pulse Resp BP Pulse Ox 06/12/20 08:35 36.6 C 89 18 132/68 98 PG Care Time/CCT Total # of Minutes Spent Total Time Spent with Patient: Total time spent is greater than 50% in coordination of care (as documented) at patient's floor/unit and/or counseling patient: 45 Coding Level of Care Code 25352 Subseq Hosp Care Lvl 3 Diagnoses Palliative care encounter Z51.5 HCV (hepatitis C virus) B19.20 Esophageal varices without bleeding I85.00 CKD (chronic kidney disease), stage IV N18.4 Hyperammonemia E72.20 Acute confusion R41.0 Time Spent (min) 45 Time Spent Midlevel Total time spent 45 minutes with > 50% of that time spent assessing the patient, discussing goals of care with [facility] Ira[facility] and family, while collaborating with the IDT
--- NOTE | 2020-06-12 19:18 | Hospitalist Progress Note ---
Date of Service June 12, 2020 Assessment & Plan (1) Acute hepatic encephalopathy: Suspect secondary to lack of bowel movements and missed lactulose doses as an outpatient Ammonia levels remain quite elevated despite use of lactulose 30gm TID and Rifaximin 550mg BID [facility] are that he frequently refuses to take all his Lactulose Initially, his ammonia down to 88 after lactulose enema on admission, mentation was clear, encephalopathy resolved on 06/04 06/05 ammonia up to 187, unclear why,-at that point he was ordered lactulose enemas ammonia down to 110 on 06/06 and then up to 160's on 06/07 improved to 149 and then back up to 158 on 06/09 and down to 140 on 06/11 with persistent encephalopathy on examination Much more awake and conversational although still confused, oriented x 1 on 06/12 patient has a MELD score of 23 Appreciate GI consultation for refractory hepatic encephalopathy with recommendations as follows: Daily MELD labs Recommend KUB for stool burden-still significant stool burden Full liver serology-pending Low NA diet as tolerated Xifaxan 550 BID Lactulose titrated to 2/3 BM daily Appreciate nephrology input Avoid hepato/renal toxins Daily I/O Less than 2G tylenol No ETOH -GI suspected hepatorenal syndrome and recommended tertiary care transfer if not improving. Nephrology said that this patient would not be a good candidate for dialysis if he is noncompliant with his medications to prevent hepatic encephalopathy. I reached out to [facility] for contact information for patient's family, need to discuss goals of care contact is Tramaine Moreira (the patient's brother), number is [phone] Previous hospitalist called him on 06/09 no answer, generic voicemail that did not state that it was his phone and left a basic message for him to call the hospital, provided the number for main line I called on 06/10 again with no answer and left a voicemail on the generic voicemail I called on 06/11 and did speak with Tramaine Moreira' who seemed genuinely concerned about the patient and said she would have her call the [facility] main phone number which I gave to her to discuss his condition with me Palliative Care was able to speak to Tramaine and his daughter, Tennille, on 06/12- they are unsure about how to proceed at this time and are processing all of the information given Will call again in 1-2 days Discussed care with Dr. Rm of [facility] Irais who is in agreement with plan to reach out to family for decision on HD and CODE status, Palliative Care and if no response then would have 2 physician decision the [facility] policy for patient's who cannot make decisions and are reaching a point for palliative care is two fold - attempt to speak with family so that they can offer guidance, make a decision - if no family members can be reached then two physicians can determine that the patient is palliative he has a clear history of non-compliance with the Lactulose at [facility], physician and several nurses confirmed this over the phone in my opinion the patient needs palliative care as he has no quality of life, lays in bed confused and has diarrhea all day he has advancing renal failure, close to needing dialysis in my opinion he should be on hospice, he would pass away relatively quickly if we did not force him to take lactulose and give lactulose enemas (2) Hyperammonemia: As above (3) Liver cirrhosis: No prior paracentesis. 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 Repeat viral loads taken at [facility]. Request results. (8) CKD (chronic kidney disease), stage IV: Cr is down to 4.24 today, better UO via [place] Continue to hold Bumex as likely he is a little intravascularly dry, continue Normosol appreciate consultation from Nephrology continue to try to make contact with patient's family regarding poor prognosis and if they would want to pursue dialysis at this point he does not need HD but is approaching the need but would not be a good candidate if cannot reliably take his medications to prevent hepatic encephalopathy as above consult palliative care (9) Nephrotic range proteinuria: Follow-up outpatient as above (10) Hypomagnesemia: resolved (11) Type 2 diabetes mellitus: HbA1c inaccurate due to CKD, anemia and liver cirrhosis -therefore no need to repeat this. Hold outpatient Novolin 7030 regimen (55 units twice daily) continue NPH 10 to 20 units twice daily depending on BSG with NovoLog sliding scale correction and carb coverage. no hypoglycemic episodes (12) Hypertension: controlled continue Norvasc continue Hydralazine 25mg TID (13) Hyperlipidemia: Noted history of this. Follow-up as outpatient. (14) Metabolic acidosis: Prior history of this. continue on sodium bicarbonate (15) DVT prophylaxis: SCD Heparin SQ Disposition-continued stay, poor overall prognosis We will continue to try to reach out to family member Appreciate palliative care consultation Admission and Anticipated Discharge Date Admission Date: June 03, 2020 Subjective More mentally clear and conversive today. Still only oriented to person but answered more wuestions. Is eating a little bit, making urine in [place], still no BM. Denies pain. When asked if he knows what dialysis is, he states "it's a tube that takes blood and puts blood back in" but could not elaborate further. I told him that our Palliative Care CEMENTING BULK MATERIAL OPERATOR talked to his brother and niece and he smiled. Review of Systems Review of Systems: Unobtainable due to cognitive status Physical Exam Constitutional: WD/WN, vitals as above Eyes: + anicteric sclerae Neck: trachea midline, no thyromegaly Respiratory: normal respiratory effort, lungs clear to auscultation Cardiovascular: RRR, no murmur, no edema Chest (Breasts): Chest: normal inspection of chest Gastrointestinal (Abdomen): Inspection/Auscultation: + abdomen distended (mild) and normal bowel sounds Percussion/Palpation: abdomen soft; abdomen nontender and no guarding Musculoskeletal: Extremities: extremities normal to inspection; no cyanosis and no clubbing Skin: no rashes, warm and dry Neurologic: moves all extremities and awake; no focal motor deficits Motor/Sensory: no tremor Psychiatric: Orientation: alert; + not oriented to place and + not oriented to time Cognition: + recent memory not intact Insight: + severely impaired insight Judgement: + severely impaired judgement Lymphatic: no lymphedema Results & Data Results & Data ([facility]) Vital Signs (Past 12 Hours) Vital Signs Temp Pulse Pulse Resp BP BP Pulse Ox 06/12/20 16:15 36.5 C 82 17 146/74 H 97 06/12/20 08:35 36.6 C 89 18 132/68 98 Laboratory Results labs reviewed PG Care Time/CCT Total # of Minutes Spent Total Time Spent with Patient: Total time spent is greater than 50% in coordination of care (as documented) at patient's floor/unit and/or counseling patient: Coding Level of Care Code 07885 Subseq Hosp Care Lvl 2 Diagnoses Acute hepatic encephalopathy K72.00 Hyperammonemia E72.20 Liver cirrhosis K74.60 Ascites presence: without ascites Hepatic cirrhosis type: unspecified hepatic cirrhosis GERD (gastroesophageal reflux disease) K21.9 Esophageal varices without bleeding I85.00 Normocytic anemia D64.9 HCV (hepatitis C virus) B19.20 CKD (chronic kidney disease), stage IV N18.4 Nephrotic range proteinuria R80.9 Hypomagnesemia E83.42 Type 2 diabetes mellitus E11.9 Hypertension I10 Hyperlipidemia E78.5 Metabolic acidosis E87.2 DVT prophylaxis Z29.9 (1) Liver cirrhosis Ascites presence: without ascites Hepatic cirrhosis type: unspecified hepatic cirrhosis Qualified Code(s): K74.60 - Unspecified cirrhosis of liver
[2020-06-12] MEDS: NORTRIPTYLINE HCL 25 MG CAP PO SCH (21:25)
[2020-06-13] MEDS: NORMOSOL-R 1,000 ML IV SCH (05:24)
[2020-06-13 08:30] LABS: Hematocrit (blood only) 27.6 % (42-52); Hemoglobin 9.3 g/dL (14.0-18.0); Mean Corpuscular Hemoglobin 31.6 pg (25-34); Mean Corpuscular Hgb Conc 33.7 g/dL (32-36); Mean Corpuscular Volume 93.9 fL (80-100); RDW Coefficient of Variation 14.5 % (11.5-14.5); RDW Standard Deviation 49.8 fL (36.4-46.3); Red Blood Count 2.94 M/uL (4.7-6.1); White Blood Count 4.57 K/uL (4.8-10.8)
[2020-06-13 08:38] LABS: Mean Platelet Volume 10.2 fL (7.4-10.4); Platelet Count 92 K/uL (130-400)
[2020-06-13 08:57] LABS: Albumin Level 1.9 gm/dl (3.4-5.0); BUN Creatinine Ratio 13.6 (10-20); Bilirubin Direct 0.4 mg/dl (0-0.2); Calcium 8.2 mg/dl (8.5-10.1); Creatinine Clr Calc Pharmacy 19.5 ml/min; Est GFR (African American) 16.2; Potassium 3.4 mmol/L (3.5-5.1)
[2020-06-13 08:59] LABS: Bilirubin,Total 1.2 mg/dl (0.2-1); Total Protein 6.1 gm/dl (6.4-8.2)
[2020-06-13] MEDS: rifAXIMin 550 MG TABLET PO SCH ×2 (09:01→21:42)
[2020-06-13] MEDS: LACTULOSE SYRUP 30 GM/45 ML UDP PO SCH ×3 (09:01→21:43)
[2020-06-13] MEDS: PROPRANOLOL HCL 20 MG TAB PO SCH ×3 (09:02→21:40)
[2020-06-13] MEDS: amLODIPine BESYLATE 5 MG TAB PO SCH (09:03)
[2020-06-13] MEDS: SODIUM BICARBONATE 650 MG TAB PO SCH (09:03)
[2020-06-13] MEDS: PANTOprazole 40 MG TAB PO SCH (09:03)
[2020-06-13] MEDS: HEPARIN SOD 5,000 UNIT/0.5 ML VIAL SQ SCH ×2 (09:04→21:46)
[2020-06-13] MEDS: hydrALAZINE HCL 25 MG TAB PO SCH ×3 (09:05→21:44)
[2020-06-13] MEDS: INSULIN ASPART 100 UNITS/ML 3 ML PEN SC SCH ×4 (09:07→22:10)
[2020-06-13 09:10] LABS: Platelet Estimate Decreased (Normal)
[2020-06-13] MEDS: INSULIN HUMAN NPH SC SCH ×2 (09:10→22:18)
--- NOTE | 2020-06-13 11:11 | Nephrology Progress Note ---
Date of Service June 13, 2020 Assessment & Plan (1) Acute kidney injury: * Suspect ATN related to dehydration. Cr is trending down w/ IV hydration (Cr 5.11 --> 4.15) * Renal US 06/07: ~ 11 cm kidneys, negative for obstruction * Electrolyte balance remains acceptable. No acute indication for HOGSHEAD COOPER at this time * Heplock IV, encourage oral hydration * Continue NaHCO3 650 mg po BID * Kidney function has returned to baseline. No further Nephrology evaluation indicated at this time. Will sign off. Please call if further assistance is needed (2) CKD (chronic kidney disease), stage IV: * Baseline Cr has been 4 - 4.5 w/ EGFR 13 cc/min. Patient has advanced renal impairment and is nearing need for HOGSHEAD COOPER. He is a poor dialysis candidate due to recurrent hepatic encephalopathy. Encephalopathy impairs his cognition and ability to consent/cooperate with medical treatments such as dialysis. If encephalopathy cannot be reliably corrected, dialysis will not provide him with quality of life and should not be pursued. 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 Serology studies including PLA2, HIV, Hep B, C3/C4/CH50 have all been normal/negative (3) Anemia: * Anemia of chronic disease * Patient had been on SQ Retacrit at [facility] * Epogen redosed 06/12/20 (4) Hypertension: * BP is currently acceptable * Continue amlodipine, propranolol and hydralazine (5) Acute hepatic encephalopathy: * Was not taking lactulose while at [facility] * On oral lactulose and rifamixin. Occasionally refuses lactulose while in hospital * Ammonia level remains elevated (140 umol/L today) (6) Liver cirrhosis: * Hep C + treated w/ Epclusa * Advanced cirrhosis w/ recurrent hyperammonemia and hepatic encephalopathy * Prognosis appears poor Admission and Anticipated Discharge Date Admission Date: June 03, 2020 Subjective Mr. Moreira was seen & examined in his hospital room this morning. He was alert but oriented to self only. He indicated that he does not like taking the lactulose. RN notes indicate that he refused one dose yesterday. Review of Systems Constitutional: + weakness; no fever Eyes: no problem reported Ear, Nose, Mouth, Throat: no problem reported Respiratory: no dyspnea Cardiovascular: no chest pain Gastrointestinal: no abdominal pain and no vomiting Genitourinary: no urinary hesitancy and no hematuria Musculoskeletal: no back pain Integumentary: no rash Neurologic: + confusion Physical Exam Constitutional: not in distress Eyes: PERRL, conjunctivae normal, anicteric sclerae Neck: trachea midline, no thyromegaly Respiratory: normal respiratory effort, lungs clear to auscultation Cardiovascular: RRR, no murmur, no edema Gastrointestinal (Abdomen): normal bowel sounds, soft, nontender, no hepatosplenomegaly Musculoskeletal: Extremities: no cyanosis Skin: no rashes, warm and dry Neurologic: awake and + confused (oriented to self only) Results & Data ([facility]) Vital Signs (Past 12 Hours) Vital Signs Temp Pulse Resp BP Pulse Ox 06/13/20 08:51 36.8 C 89 16 147/70 H 96 Laboratory Tests 06/13/20 07:55 WBC 4.57 L Hgb 9.3 L Hct 27.6 L Laboratory Tests 06/13/20 06/13/20 07:55 08:37 Sodium 139 Potassium 3.4 L Chloride 105 Carbon Dioxide 24 BUN 56 H Creatinine 4.15 H Glucose 130 H Calcium 8.2 L Ammonia 140.4 H PG Care Time/CCT Total # of Minutes Spent Total Time Spent with Patient: Total time spent is greater than 50% in coordination of care (as documented) at patient's floor/unit and/or counseling patient: Coding Level of Care Code 33225 Subseq Hosp Care Lvl 3 Diagnoses Acute kidney injury N17.9 CKD (chronic kidney disease), stage IV N18.4 Anemia D64.9 Hypertension I10 Acute hepatic encephalopathy K72.00 Liver cirrhosis K74.60 Hepatic cirrhosis type: unspecified hepatic cirrhosis Ascites presence: without ascites (1) Liver cirrhosis Hepatic cirrhosis type: unspecified hepatic cirrhosis Ascites presence: without ascites Qualified Code(s): K74.60 - Unspecified cirrhosis of liver
[2020-06-13] MEDS ORDERED: bisacodyL 10 MG SUPP PR STA (18:56)
--- NOTE | 2020-06-13 18:57 | Hospitalist Progress Note ---
Date of Service June 13, 2020 Assessment & Plan (1) Acute hepatic encephalopathy: Suspect secondary to lack of bowel movements and missed lactulose doses as an outpatient Ammonia levels remain quite elevated despite use of lactulose 30gm TID and Rifaximin 550mg BID Nursing reports from the care home are that he frequently refuses to take all his Lactulose Initially, his ammonia down to 88 after lactulose enema on admission, mentation was clear, encephalopathy resolved on 06/04 06/05 ammonia up to 187, unclear why,-at that point he was ordered lactulose enemas ammonia down to 110 on 06/06 and then up to 160's on 06/07 improved to 149 and then back up to 158 on 06/09 and down to 140 on 06/11 with persistent encephalopathy on examination Much more awake and conversational although still confused, oriented x 2 on 06/13 patient has a MELD score of 23 Appreciate GI consultation for refractory hepatic encephalopathy with recommendations as follows: Daily MELD labs Recommend KUB for stool burden-still significant stool burden Full liver serology-pending Low NA diet as tolerated Xifaxan 550 BID Lactulose titrated to 2/3 BM daily Appreciate nephrology input Avoid hepato/renal toxins Daily I/O Less than 2G tylenol No ETOH -GI suspected hepatorenal syndrome and recommended tertiary care transfer if not improving. Nephrology said that this patient would not be a good candidate for dialysis if he is noncompliant with his medications to prevent hepatic encephalopathy. I reached out to [facility] for contact information for patient's family, need to discuss goals of care contact is Tramaine Moreira (the patient's brother), number is [phone] Previous hospitalist called him on 06/09 no answer, generic voicemail that did not state that it was his phone and left a basic message for him to call the hospital, provided the number for main line I called on 06/10 again with no answer and left a voicemail on the generic voicemail I called on 06/11 and did speak with Tramaine Moreira' who seemed genuinely concerned about the patient and said she would have her call the [facility] main phone number which I gave to her to discuss his condition with me Palliative Care was able to speak to Tramaine and his daughter, Tennille, on 06/12- they are unsure about how to proceed at this time and are processing all of the information given Will call again if worsens Discussed care with Dr. Rm of [facility] Irais who is in agreement with plan to reach out to family for decision on HD and CODE status, Palliative Care and if no response then would have 2 physician decision the care home policy for patient's who cannot make decisions and are reaching a point for palliative care is two fold - attempt to speak with family so that they can offer guidance, make a decision - if no family members can be reached then two physicians can determine that the patient is palliative he has a clear history of non-compliance with the Lactulose at [facility], physician and several nurses confirmed this over the phone in my opinion the patient needs palliative care as he has no quality of life, lays in bed confused and has diarrhea all day he has advancing renal failure, close to needing dialysis in my opinion he should be on hospice, he would pass away relatively quickly if we did not force him to take lactulose and give lactulose enemas (2) Hyperammonemia: As above (3) Liver cirrhosis: No prior paracentesis. 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 (8) CKD (chronic kidney disease), stage IV: Cr is down to 4.1 today, better UO via [place] Continue to hold Bumex as likely he is a little intravascularly dry, getting edematous--> discontinue Normosol appreciate consultation from Nephrology continue to try to make contact with patient's family regarding poor prognosis and if they would want to pursue dialysis at this point he does not need HD but is approaching the need but would not be a good candidate if cannot reliably take his medications to prevent hepatic encephalopathy as above consult palliative care (9) Nephrotic range proteinuria: Follow-up outpatient as above (10) Hypomagnesemia: resolved (11) Type 2 diabetes mellitus: HbA1c inaccurate due to CKD, anemia and liver cirrhosis -therefore no need to repeat this. Hold outpatient Novolin 7030 regimen (55 units twice daily) continue NPH 10 to 20 units twice daily depending on BSG with NovoLog sliding scale correction and carb coverage. no hypoglycemic episodes (12) Hypertension: controlled continue Norvasc continue Hydralazine 25mg TID (13) Hyperlipidemia: Noted history of this. Follow-up as outpatient. (14) Metabolic acidosis: Prior history of this. continue on sodium bicarbonate (15) Constipation: SIgnificant, has not had a BM in 4-5 days, distended abdomen Give bisacodyl suppository, continue lactulose and increase to qid follow (16) DVT prophylaxis: SCD Heparin SQ Disposition-continued stay, poor overall prognosis We will continue to try to reach out to family member if worsens tomorrow Appreciate palliative care consultation Admission and Anticipated Discharge Date Admission Date: June 03, 2020 Subjective More alert and convernsive, oriented to person but no tplace. He knew the year and month and who the President was. No abd pain. Still no BM. Eating very minimally Discussed case with Nephrology who said would be a very poor dialysis candidate Review of Systems Review of Systems: Unobtainable due to cognitive status Physical Exam Constitutional: WD/WN, vitals as above Eyes: + anicteric sclerae Neck: trachea midline, no thyromegaly Respiratory: normal respiratory effort, lungs clear to auscultation Cardiovascular: Rate/Rhythm: regular rate and regular rhythm Extremities: + edema (1+ pitting edema legs and arms) Chest (Breasts): Chest: normal inspection of chest Gastrointestinal (Abdomen): Inspection/Auscultation: + abdomen distended (mild) and normal bowel sounds Percussion/Palpation: abdomen soft; abdomen nontender and no guarding Musculoskeletal: Extremities: extremities normal to inspection; no cyanosis and no clubbing Skin: no rashes, warm and dry Neurologic: moves all extremities and awake; no focal motor deficits Motor/Sensory: no tremor Psychiatric: Orientation: alert, oriented to person, oriented to time and cooperative; + not oriented to place Cognition: + recent memory not intact Insight: + severely impaired insight Judgement: + severely impaired judgement Results & Data Results & Data ([facility]) Vital Signs (Past 12 Hours) Vital Signs Temp Pulse Pulse Resp BP Pulse Ox 06/13/20 15:23 36.8 C 85 18 128/77 96 06/13/20 08:51 36.8 C 89 16 147/70 H 96 Laboratory Results 06/14/20 06/14/20 06/14/20 Range/Units 17:19 12:35 08:44 WBC (4.8-10.8) K/uL RBC (4.7-6.1) M/uL Hgb (14.0-18.0) g/dL Hct (42-52) % MCV (80-100) fL MCH (25-34) pg MCHC (32-36) g/dL RDW Std Deviation (36.4-46.3) fL RDW Coeff of Kianna (11.5-14.5) % Plt Count (130-400) K/uL MPV (7.4-10.4) fL Immature Gran % (Auto) % Neut % (Auto) % Lymph % (Auto) % [place] % (Auto) % Eos % (Auto) % Baso % (Auto) % Neut # (Auto) (1.4-6.5) K/uL Lymph # (Auto) (1.2-3.4) K/uL [place] # (Auto) (0.11-0.59) K/uL Eos # (Auto) (0-0.5) K/uL Baso # (Auto) (0-0.2) K/uL Immature Gran # (Auto) (0.00-0.02) K/uL Platelet Estimate (Normal) Echinocytes Sodium (136-145) mmol/L Potassium (3.5-5.1) mmol/L Chloride (98-107) mmol/L Carbon Dioxide (21-32) mmol/L Anion Gap (3-11) BUN (7-18) mg/dl Creatinine (0.6-1.4) mg/dl Est Cr Clr Drug Dosing ml/min Est GFR ( Amer) Est GFR (Non-Af Amer) BUN/Creatinine Ratio (10-20) Glucose (70-99) mg/dl POC Glucose 126 H 205 H 153 H (70-99) mg/dl Calcium (8.5-10.1) mg/dl Total Bilirubin (0.2-1) mg/dl Direct Bilirubin (0-0.2) mg/dl AST (15-37) U/L ALT (12-78) U/L Alkaline Phosphatase (45-117) U/L Ammonia (11-32) umol/L Total Protein (6.4-8.2) gm/dl Albumin (3.4-5.0) gm/dl 06/14/20 06/14/20 06/14/20 Range/Units 07:25 07:25 07:25 WBC 4.75 L (4.8-10.8) K/uL RBC 3.04 L (4.7-6.1) M/uL Hgb 9.8 L (14.0-18.0) g/dL Hct 28.0 L (42-52) % MCV 92.1 (80-100) fL MCH 32.2 (25-34) pg MCHC 35.0 (32-36) g/dL RDW Std Deviation 47.8 H (36.4-46.3) fL RDW Coeff of Kianna 14.3 (11.5-14.5) % Plt Count 95 L (130-400) K/uL MPV 10.5 H (7.4-10.4) fL Immature Gran % (Auto) 0.2 % Neut % (Auto) 50.9 % Lymph % (Auto) 25.7 % [place] % (Auto) 21.5 % Eos % (Auto) 1.7 % Baso % (Auto) 0.0 % Neut # (Auto) 2.42 (1.4-6.5) K/uL Lymph # (Auto) 1.22 (1.2-3.4) K/uL [place] # (Auto) 1.02 H (0.11-0.59) K/uL Eos # (Auto) 0.08 (0-0.5) K/uL Baso # (Auto) 0.00 (0-0.2) K/uL Immature Gran # (Auto) 0.01 (0.00-0.02) K/uL Platelet Estimate Decreased L (Normal) Echinocytes 1+ Sodium 139 (136-145) mmol/L Potassium 3.3 L (3.5-5.1) mmol/L Chloride 105 (98-107) mmol/L Carbon Dioxide 25 (21-32) mmol/L Anion Gap 9.0 (3-11) BUN 56 H (7-18) mg/dl Creatinine 4.08 H (0.6-1.4) mg/dl Est Cr Clr Drug Dosing 19.8 ml/min Est GFR ( Amer) 16.5 Est GFR (Non-Af Amer) 14.3 BUN/Creatinine Ratio 13.7 (10-20) Glucose 146 H (70-99) mg/dl POC Glucose (70-99) mg/dl Calcium 8.2 L (8.5-10.1) mg/dl Total Bilirubin 1.3 H (0.2-1) mg/dl Direct Bilirubin 0.5 H (0-0.2) mg/dl AST 40 H (15-37) U/L ALT 29 (12-78) U/L Alkaline Phosphatase 95 (45-117) U/L Ammonia 161.1 H (11-32) umol/L Total Protein 6.7 (6.4-8.2) gm/dl Albumin 1.9 L (3.4-5.0) gm/dl 06/13/20 Range/Units 21:06 WBC (4.8-10.8) K/uL RBC (4.7-6.1) M/uL Hgb (14.0-18.0) g/dL Hct (42-52) % MCV (80-100) fL MCH (25-34) pg MCHC (32-36) g/dL RDW Std Deviation (36.4-46.3) fL RDW Coeff of Kianna (11.5-14.5) % Plt Count (130-400) K/uL MPV (7.4-10.4) fL Immature Gran % (Auto) % Neut % (Auto) % Lymph % (Auto) % [place] % (Auto) % Eos % (Auto) % Baso % (Auto) % Neut # (Auto) (1.4-6.5) K/uL Lymph # (Auto) (1.2-3.4) K/uL [place] # (Auto) (0.11-0.59) K/uL Eos # (Auto) (0-0.5) K/uL Baso # (Auto) (0-0.2) K/uL Immature Gran # (Auto) (0.00-0.02) K/uL Platelet Estimate (Normal) Echinocytes Sodium (136-145) mmol/L Potassium (3.5-5.1) mmol/L Chloride (98-107) mmol/L Carbon Dioxide (21-32) mmol/L Anion Gap (3-11) BUN (7-18) mg/dl Creatinine (0.6-1.4) mg/dl Est Cr Clr Drug Dosing ml/min Est GFR ( Amer) Est GFR (Non-Af Amer) BUN/Creatinine Ratio (10-20) Glucose (70-99) mg/dl POC Glucose 175 H (70-99) mg/dl Calcium (8.5-10.1) mg/dl Total Bilirubin (0.2-1) mg/dl Direct Bilirubin (0-0.2) mg/dl AST (15-37) U/L ALT (12-78) U/L Alkaline Phosphatase (45-117) U/L Ammonia (11-32) umol/L Total Protein (6.4-8.2) gm/dl Albumin (3.4-5.0) gm/dl PG Care Time/CCT Total # of Minutes Spent Total Time Spent with Patient: Total time spent is greater than 50% in coordination of care (as documented) at patient's floor/unit and/or counseling patient: Coding Level of Care Code 98788 Subseq Hosp Care Lvl 2 Diagnoses Acute hepatic encephalopathy K72.00 Hyperammonemia E72.20 Liver cirrhosis K74.60 Ascites presence: without ascites Hepatic cirrhosis type: unspecified hepatic cirrhosis GERD (gastroesophageal reflux disease) K21.9 Esophageal varices without bleeding I85.00 Normocytic anemia D64.9 HCV (hepatitis C virus) B19.20 CKD (chronic kidney disease), stage IV N18.4 Nephrotic range proteinuria R80.9 Hypomagnesemia E83.42 Type 2 diabetes mellitus E11.9 Hypertension I10 Hyperlipidemia E78.5 Metabolic acidosis E87.2 Constipation K59.00 DVT prophylaxis Z29.9 (1) Liver cirrhosis Ascites presence: without ascites Hepatic cirrhosis type: unspecified hepatic cirrhosis Qualified Code(s): K74.60 - Unspecified cirrhosis of liver
[2020-06-13] MEDS: DOCUSATE SODIUM/SENNA 50/8.6MG TAB PO SCH (22:08)
[2020-06-14 07:42] LABS: Hemoglobin 9.8 g/dL (14.0-18.0); Mean Corpuscular Hemoglobin 32.2 pg (25-34); Mean Corpuscular Volume 92.1 fL (80-100); RDW Coefficient of Variation 14.3 % (11.5-14.5); RDW Standard Deviation 47.8 fL (36.4-46.3); Red Blood Count 3.04 M/uL (4.7-6.1); White Blood Count 4.75 K/uL (4.8-10.8)
[2020-06-14 07:51] LABS: Mean Platelet Volume 10.5 fL (7.4-10.4); Platelet Count 95 K/uL (130-400)
[2020-06-14 08:13] LABS: Albumin Level 1.9 gm/dl (3.4-5.0); BUN Creatinine Ratio 13.7 (10-20); Bilirubin Direct 0.5 mg/dl (0-0.2); Calcium 8.2 mg/dl (8.5-10.1); Creatinine Clr Calc Pharmacy 19.8 ml/min; Est GFR (African American) 16.5; Est GFR (Non-African American) 14.3; Potassium 3.3 mmol/L (3.5-5.1)
[2020-06-14 08:16] LABS: Bilirubin,Total 1.3 mg/dl (0.2-1); Total Protein 6.7 gm/dl (6.4-8.2)
[2020-06-14 08:40] LABS: Echinocytes 1+; Eosinophils # (auto) 0.08 K/uL (0-0.5); Eosinophils % (auto) 1.7 %; Immature Granulocytes # (auto) 0.01 K/uL (0.00-0.02); Immature Granulocytes % (auto) 0.2 %; Lymphocytes # (auto) 1.22 K/uL (1.2-3.4); Lymphocytes % (auto) 25.7 %; Monocytes # (auto) 1.02 K/uL (0.11-0.59); Monocytes % (auto) 21.5 %; Neutrophils # (auto) 2.42 K/uL (1.4-6.5); Neutrophils % (auto) 50.9 %; Platelet Estimate Decreased (Normal)
--- NOTE | 2020-06-14 10:00 | XRay Report ---
KUB HISTORY: Follow up study in a patient with constipation access fecal load COMPARISON: KUB 06/11/2020 FINDINGS: Bowel gas pattern is nonobstructive. Diffuse fecal retention is redemonstrated which appear s at least moderate to severe throughout with minimal evacuation of the descending colon.. Distended loops of large bowel measuring up to 7.6 cm transversely. No small bowel obstruction. No renal calcu li. No ureteral calculi. No pneumoperitoneum or pneumatosis. No fracture. IMPRESSION: 1. No small bowel obstruction. 2. Distended large bowel with at least moderate to extensive fecal retention. There is mild interval evacuation of stool within the descending colon. ACT 112: Negative or not required by law. The above report was generated using voice recognition software. It may contain grammatical, syntax o r spelling errors. Electronically signed by: Martin Tirado M.D. 06/14/2020 9:59 AM
[2020-06-14] MEDS: INSULIN ASPART 100 UNITS/ML 3 ML PEN SC SCH ×4 (10:04→21:55)
[2020-06-14] MEDS: rifAXIMin 550 MG TABLET PO SCH ×2 (10:06→21:52)
[2020-06-14] MEDS: PROPRANOLOL HCL 20 MG TAB PO SCH ×3 (10:06→21:52)
[2020-06-14] MEDS: HEPARIN SOD 5,000 UNIT/0.5 ML VIAL SQ SCH ×2 (10:06→21:55)
[2020-06-14] MEDS: LACTULOSE SYRUP 30 GM/45 ML UDP PO SCH ×3 (10:07→16:49)
[2020-06-14] MEDS: hydrALAZINE HCL 25 MG TAB PO SCH ×3 (10:07→21:52)
[2020-06-14] MEDS: SODIUM BICARBONATE 650 MG TAB PO SCH (10:07)
[2020-06-14] MEDS: INSULIN HUMAN NPH SC SCH ×2 (10:08→21:55)
[2020-06-14] MEDS: PANTOprazole 40 MG TAB PO SCH (10:10)
[2020-06-14] MEDS: DOCUSATE SODIUM/SENNA 50/8.6MG TAB PO SCH ×2 (10:10→21:52)
[2020-06-14] MEDS ORDERED: LAVAGE SOLUTION 4000ML PO SCH ×2 (11:00)
[2020-06-14] MEDS: amLODIPine BESYLATE 5 MG TAB PO SCH (11:33)
--- NOTE | 2020-06-14 13:13 | Gastroenterology Progress Note ---
Date of Service June 14, 2020 Assessment & Plan (1) Liver cirrhosis: 65 year old male w/ reported HCV cirrhosis treated w/ report of eso varices on BB, CKD and other comorbidities admitted w/ encephalopathy and reported missed doses of lactulose as OP. He is more awake today than yesterday though still not verbally interactive, oriented only to person. Kidney labs are stable, according to nephrology at baseline CKD levels. Continue Low NA diet with aspiration precautions, Continue to scrum coach pt to take meds, continuing: Xifaxan 550 BID, Unfortunately, we will need to decrease po Lactulose as likely causing abdominal distention. Will need to tx hep enceph with once daily lactulose plus BID Rifaximin. If does not take lactulose po, then try lactulose enemas. Thank you for allowing us to participate in the care of this patient. Please call with any acute changes, questions or concerns. Please see addendum below with additional recommendation from my supervising physician. Admission and Anticipated Discharge Date Admission Date: June 03, 2020 Supervising Physician Co-Signing Physician Notes I saw and evaluated the patient. He does continue to remain somnolent despite discontinuation of his tricyclic. Given this and his lack of improvement with interventions such as rifaximin twice daily and lactulose I wonder if he would be best served at a tertiary center with expertise in severe liver disease. Recommendations Continue zinc supplementation Decrease lactulose to 1 time daily due to distention Continue rifaximin 550 mg twice daily Suggest referral to a tertiary care center with transplant expertise Subjective 65 yr old male admitted with HCV cirrhosis with encephalopathy secondary to med refusal at [facility]. Slightly more awake today. Oriented to self. Not able to tell me place, date or answer other questions. Review of Systems Review of Systems: Unable to obtain ROS from patient. Constitutional: no fever Ear, Nose, Mouth, Throat: denies issues Physical Exam Constitutional: WD/WN, vitals as above + ill appearing, + obese (mildly) and + altered mental status (dull, slow mumbled speech, ) somewhat agitated today; as evidence by seemingly angry when I touch and tried to open his left hand - he jerked and said something garbled that sounded as though he were alarmed. Eyes: PERRL ENMT: external ear and nose normal, oropharynx normal Neck: trachea midline, no thyromegaly Respiratory: normal respiratory effort, lungs clear to auscultation Cardiovascular: Rate/Rhythm: regular rate and regular rhythm Extremities: + edema (1+ bilat lower leg edema) Gastrointestinal (Abdomen): Inspection/Auscultation: + abdomen distended (moderately distended today) and normal bowel sounds Percussion/Palpation: abdomen soft Skin: no rashes, warm and dry Neurologic: PERRL, EOMI, accommodation nl, no face palsy, no dysarthria moves all extremities Speech / Cognition: + abnormal speech (slow, mumbled, garbled) Motor/Sensory: + tremor (mild with trying to lift his water; unable to elicit asterix) Lymphatic: no cervical or axillary lymphadenopathy Results & Data ([facility]) Vital Signs (Past 12 Hours) Vital Signs Temp Pulse Resp BP Pulse Ox 06/14/20 08:09 36.8 C 83 16 134/75 96 (1) Liver cirrhosis Ascites presence: without ascites Hepatic cirrhosis type: unspecified hepatic cirrhosis Qualified Code(s): K74.60 - Unspecified cirrhosis of liver
[2020-06-14] MEDS ORDERED: bisacodyL 10 MG SUPP PR STA (18:39)
--- NOTE | 2020-06-14 22:07 | Hospitalist Progress Note ---
Date of Service June 14, 2020 Assessment & Plan (1) Acute hepatic encephalopathy: Suspect secondary to lack of bowel movements and missed lactulose doses as an outpatient Ammonia levels remain quite elevated despite use of lactulose 30gm TID and Rifaximin 550mg BID Nursing reports from the [facility] are that he frequently refuses to take all his Lactulose Initially, his ammonia down to 88 after lactulose enema on admission, mentation was clear, encephalopathy resolved on 06/04 06/05 ammonia up to 187, unclear why,-at that point he was ordered lactulose enemas ammonia down to 110 on 06/06 and then up to 160's on 06/07 improved to 149 and then back up to 158 on 06/09 and down to 140 on 06/11 with persistent encephalopathy on examination Much more awake and conversational although still confused, oriented x 2 on 06/13 On 06/14, has seem to take a sudden turn for the worse and ammonia is up to 160 He still has not moved his bowels in 5 days except for a few small bits today after a milk of molasses enema and some GoLYTELY this morning patient has a MELD score of 23 which gives him a 19.6% risk of mortality in the next 3 months Appreciate GI consultation for refractory hepatic encephalopathy with recommendations as follows: Daily MELD labs Recommend KUB for stool burden-still significant stool burden and worsening colon distention on KUB 06/14 Full liver serology-pending Low NA diet as tolerated Xifaxan 550 BID -We will now decrease lactulose to once daily given significant distention Appreciate nephrology input Avoid hepato/renal toxins Daily I/O Less than 2G tylenol No ETOH -GI suspected hepatorenal syndrome and recommended tertiary care transfer if not improving. Nephrology said that this patient would not be a good candidate for dialysis if he is noncompliant with his medications to prevent hepatic encephalopathy. GI recommends transfer to tertiary care center for liver transplant evaluation- however, he does not seem like a liver transplant candidate at all given his history of noncompliance when he is mentating well. He is also with renal failure. Nonetheless, I will reach out to liver transplant center tomorrow during the daytime to confirm this. I reached out to [facility] for contact information for patient's family, need to discuss goals of care contact is Tramaine Moreira (the patient's brother), number is [phone]. I have now discussed his care in depth with Tramaine on 06/14 who understands the overall poor prognosis. Goals of care now include continued attempts to improve his encephalopathy with medication, and consultation with liver transplant center at tertiary care facility. However, if no transfer to tertiary care facility is indicated, will then discuss with Tramaine about transitioning to comfort care if no improvement. The [facility] policy for patient's who cannot make decisions and are reaching a point for palliative care is two fold - attempt to speak with family so that they can offer guidance, make a decision - if no family members can be reached then two physicians can determine that the patient is palliative He has a clear history of non-compliance with the Lactulose at [facility], physician and several nurses confirmed this over the phone in my opinion the patient needs palliative care as he has no quality of life, lays in bed confused he has advancing renal failure, close to needing dialysis in my opinion he should be on hospice, he would pass away relatively quickly if we did not force him to take lactulose and give lactulose enemas -We will make n.p.o. for now as he is extremely lethargic and is at risk for aspiration -Would not put NG tube down as he has a history of esophageal varices (2) Hyperammonemia: As above (3) Liver cirrhosis: No prior paracentesis. No prior ascites on CT taken here has h/o varices certainly it is advanced given his hyperammonia Appreciate palliative care consultation (4) GERD (gastroesophageal reflux disease): continue PPI (5) Esophageal varices without bleeding: propranolol 20 mg 3 times daily (6) Normocytic anemia: Hgb stable, no signs of bleeding (7) HCV (hepatitis C virus): Treated. (8) CKD (chronic kidney disease), stage IV: Acute kidney injury in the setting of CKD stage IV Cr is down to 4.08 today, better UO via [place] Continue to hold Bumex as likely he is a little intravascularly dry, getting edematous--> discontinued Normosol on 06/13 Getting edematous/anasarca appreciate consultation from Nephrology Discussed his renal failure along with liver failure with his point of contact, his brother Tramaine on the phone on 06/14. He understands that the patient would not be a good candidate for dialysis if encephalopathy persists. At this point he does not need HD but is approaching the need but would not be a good candidate if cannot reliably take his medications to prevent hepatic encephalopathy as above consult palliative care appreciated (9) Nephrotic range proteinuria: (10) Hypomagnesemia: resolved (11) Type 2 diabetes mellitus: HbA1c inaccurate due to CKD, anemia and liver cirrhosis -therefore no need to repeat this. Hold outpatient Novolin 7030 regimen (55 units twice daily) continue NPH 10 to 20 units twice daily depending on BSG with NovoLog sliding scale correction and carb coverage. no hypoglycemic episodes (12) Hypertension: controlled continue Norvasc continue Hydralazine 25mg TID if can take oral pills Otherwise can give IV hydralazine as needed (13) Metabolic acidosis: Prior history of this. continue on sodium bicarbonate (14) Constipation: Severe, with worsening abdominal distention. KUB with colonic distended loops of bowel and significant stool burden Only had a couple small pieces of stool passed with milk of molasses enema and bisacodyl suppository in the last 24 hours along with lactulose audible times a day. GI recommends discontinuing or reducing lactulose down to once daily Will give another bisacodyl suppository today Attempted GoLYTELY this morning but he is too lethargic to drink it follow (15) DVT prophylaxis: SCD Heparin SQ Disposition-continued stay, poor overall prognosis with significant worsening of mental status on 06/14 After discussion with his point of contact on 06/14 decision made to pursue DNR/DNI We will continue current care and reach out to tertiary care facility on Wednesday to see if he is a candidate for transfer, but highly doubt this. Palliative care consultation appreciated Most likely would recommend transition to comfort measures only if family members agreeable and patient continues to worsen Admission and Anticipated Discharge Date Admission Date: June 03, 2020 Subjective Patient quite lethargic today and would only grunt when I shouted his name. He did open up his eyes at times throughout the day with nursing during turns and with hygiene. Guards at the bedside said he barely ate any food today. No bowel movement in 6 days and abdomen remains quite distended. Discussed the case with the GI nurse practitioner. I also got through to his brother, Tramaine, on the phone and discussed his poor prognosis and worsening condition. His brother feels that it would be best to make him a DNR/DNI at this time given poor prognosis. Review of Systems Review of Systems: Unobtainable due to cognitive status Physical Exam Constitutional: WD/WN, vitals as above + lethargic Eyes: + anicteric sclerae Neck: trachea midline, no thyromegaly Respiratory: normal respiratory effort, lungs clear to auscultation Cardiovascular: Rate/Rhythm: regular rate and regular rhythm Extremities: + edema (1+ pitting edema legs and arms) Chest (Breasts): Chest: normal inspection of chest Gastrointestinal (Abdomen): Inspection/Auscultation: + abdomen distended (moderate) and normal bowel sounds Percussion/Palpation: abdomen nontender and no guarding Musculoskeletal: Extremities: no cyanosis and no clubbing Skin: no rashes, warm and dry Neurologic: Speech / Cognition: + abnormal cognition Motor/Sensory: + abn ormal movement (At times, he tries to lift his right arm up when I talk to him and has some asterixis); no tremor Psychiatric: Orientation: + not alert Results & Data Results & Data ([facility]) Vital Signs (Past 12 Hours) Vital Signs Temp Pulse Resp BP Pulse Ox 06/14/20 15:53 36.3 C L 79 18 104/71 99 Laboratory Results 06/14/20 06/14/20 06/14/20 Range/Units 20:51 17:19 12:35 WBC (4.8-10.8) K/uL RBC (4.7-6.1) M/uL Hgb (14.0-18.0) g/dL Hct (42-52) % MCV (80-100) fL MCH (25-34) pg MCHC (32-36) g/dL RDW Std Deviation (36.4-46.3) fL RDW Coeff of Kianna (11.5-14.5) % Plt Count (130-400) K/uL MPV (7.4-10.4) fL Immature Gran % (Auto) % Neut % (Auto) % Lymph % (Auto) % [place] % (Auto) % Eos % (Auto) % Baso % (Auto) % Neut # (Auto) (1.4-6.5) K/uL Lymph # (Auto) (1.2-3.4) K/uL [place] # (Auto) (0.11-0.59) K/uL Eos # (Auto) (0-0.5) K/uL Baso # (Auto) (0-0.2) K/uL Immature Gran # (Auto) (0.00-0.02) K/uL Platelet Estimate (Normal) Echinocytes Sodium (136-145) mmol/L Potassium (3.5-5.1) mmol/L Chloride (98-107) mmol/L Carbon Dioxide (21-32) mmol/L Anion Gap (3-11) BUN (7-18) mg/dl Creatinine (0.6-1.4) mg/dl Est Cr Clr Drug Dosing ml/min Est GFR ( Amer) Est GFR (Non-Af Amer) BUN/Creatinine Ratio (10-20) Glucose (70-99) mg/dl POC Glucose 210 H 126 H 205 H (70-99) mg/dl Calcium (8.5-10.1) mg/dl Total Bilirubin (0.2-1) mg/dl Direct Bilirubin (0-0.2) mg/dl AST (15-37) U/L ALT (12-78) U/L Alkaline Phosphatase (45-117) U/L Ammonia (11-32) umol/L Total Protein (6.4-8.2) gm/dl Albumin (3.4-5.0) gm/dl 06/14/20 06/14/20 06/14/20 Range/Units 08:44 07:25 07:25 WBC (4.8-10.8) K/uL RBC (4.7-6.1) M/uL Hgb (14.0-18.0) g/dL Hct (42-52) % MCV (80-100) fL MCH (25-34) pg MCHC (32-36) g/dL RDW Std Deviation (36.4-46.3) fL RDW Coeff of Kianna (11.5-14.5) % Plt Count (130-400) K/uL MPV (7.4-10.4) fL Immature Gran % (Auto) % Neut % (Auto) % Lymph % (Auto) % [place] % (Auto) % Eos % (Auto) % Baso % (Auto) % Neut # (Auto) (1.4-6.5) K/uL Lymph # (Auto) (1.2-3.4) K/uL [place] # (Auto) (0.11-0.59) K/uL Eos # (Auto) (0-0.5) K/uL Baso # (Auto) (0-0.2) K/uL Immature Gran # (Auto) (0.00-0.02) K/uL Platelet Estimate (Normal) Echinocytes Sodium 139 (136-145) mmol/L Potassium 3.3 L (3.5-5.1) mmol/L Chloride 105 (98-107) mmol/L Carbon Dioxide 25 (21-32) mmol/L Anion Gap 9.0 (3-11) BUN 56 H (7-18) mg/dl Creatinine 4.08 H (0.6-1.4) mg/dl Est Cr Clr Drug Dosing 19.8 ml/min Est GFR ( Amer) 16.5 Est GFR (Non-Af Amer) 14.3 BUN/Creatinine Ratio 13.7 (10-20) Glucose 146 H (70-99) mg/dl POC Glucose 153 H (70-99) mg/dl Calcium 8.2 L (8.5-10.1) mg/dl Total Bilirubin 1.3 H (0.2-1) mg/dl Direct Bilirubin 0.5 H (0-0.2) mg/dl AST 40 H (15-37) U/L ALT 29 (12-78) U/L Alkaline Phosphatase 95 (45-117) U/L Ammonia 161.1 H (11-32) umol/L Total Protein 6.7 (6.4-8.2) gm/dl Albumin 1.9 L (3.4-5.0) gm/dl 06/14/20 Range/Units 07:25 WBC 4.75 L (4.8-10.8) K/uL RBC 3.04 L (4.7-6.1) M/uL Hgb 9.8 L (14.0-18.0) g/dL Hct 28.0 L (42-52) % MCV 92.1 (80-100) fL MCH 32.2 (25-34) pg MCHC 35.0 (32-36) g/dL RDW Std Deviation 47.8 H (36.4-46.3) fL RDW Coeff of Kianna 14.3 (11.5-14.5) % Plt Count 95 L (130-400) K/uL MPV 10.5 H (7.4-10.4) fL Immature Gran % (Auto) 0.2 % Neut % (Auto) 50.9 % Lymph % (Auto) 25.7 % [place] % (Auto) 21.5 % Eos % (Auto) 1.7 % Baso % (Auto) 0.0 % Neut # (Auto) 2.42 (1.4-6.5) K/uL Lymph # (Auto) 1.22 (1.2-3.4) K/uL [place] # (Auto) 1.02 H (0.11-0.59) K/uL Eos # (Auto) 0.08 (0-0.5) K/uL Baso # (Auto) 0.00 (0-0.2) K/uL Immature Gran # (Auto) 0.01 (0.00-0.02) K/uL Platelet Estimate Decreased L (Normal) Echinocytes 1+ Sodium (136-145) mmol/L Potassium (3.5-5.1) mmol/L Chloride (98-107) mmol/L Carbon Dioxide (21-32) mmol/L Anion Gap (3-11) BUN (7-18) mg/dl Creatinine (0.6-1.4) mg/dl Est Cr Clr Drug Dosing ml/min Est GFR ( Amer) Est GFR (Non-Af Amer) BUN/Creatinine Ratio (10-20) Glucose (70-99) mg/dl POC Glucose (70-99) mg/dl Calcium (8.5-10.1) mg/dl Total Bilirubin (0.2-1) mg/dl Direct Bilirubin (0-0.2) mg/dl AST (15-37) U/L ALT (12-78) U/L Alkaline Phosphatase (45-117) U/L Ammonia (11-32) umol/L Total Protein (6.4-8.2) gm/dl Albumin (3.4-5.0) gm/dl PG Care Time/CCT Total # of Minutes Spent Total Time Spent with Patient: Total time spent is greater than 50% in coordination of care (as documented) at patient's floor/unit and/or counseling patient: Coding Level of Care Code 85476 Subseq Hosp Care Lvl 3 Diagnoses Acute hepatic encephalopathy K72.00 Hyperammonemia E72.20 Liver cirrhosis K74.60 Hepatic cirrhosis type: unspecified hepatic cirrhosis Ascites presence: without ascites GERD (gastroesophageal reflux disease) K21.9 Esophageal varices without bleeding I85.00 Normocytic anemia D64.9 HCV (hepatitis C virus) B19.20 CKD (chronic kidney disease), stage IV N18.4 Nephrotic range proteinuria R80.9 Hypomagnesemia E83.42 Type 2 diabetes mellitus E11.9 Hypertension I10 Metabolic acidosis E87.2 Constipation K59.00 DVT prophylaxis Z29.9 (1) Liver cirrhosis Hepatic cirrhosis type: unspecified hepatic cirrhosis Ascites presence: without ascites Qualified Code(s): K74.60 - Unspecified cirrhosis of liver
[2020-06-15] MEDS ORDERED: MoRPHine SULFATE 2 MG/ML CARP IV PRN (01:19)
[2020-06-15] MEDS ORDERED: ATROPINE SULFATE 1% OP SOLN 2 ML BTL SL PRN (01:19)
[2020-06-15] MEDS ORDERED: Nursing to Pharmacy Communication SCH ×3 (07:30→22:15)
[2020-06-15] MEDS: INSULIN ASPART 100 UNITS/ML 3 ML PEN SC SCH ×4 (08:39→22:15)
[2020-06-15] MEDS: hydrALAZINE HCL 25 MG TAB PO SCH ×3 (09:06→22:07)
[2020-06-15] MEDS: amLODIPine BESYLATE 5 MG TAB PO SCH (09:06)
[2020-06-15] MEDS: LACTULOSE SYRUP 30 GM/45 ML UDP PO SCH (09:06)
[2020-06-15] MEDS: PROPRANOLOL HCL 20 MG TAB PO SCH ×3 (09:06→22:07)
[2020-06-15] MEDS: SODIUM BICARBONATE 650 MG TAB PO SCH (09:07)
[2020-06-15] MEDS: PANTOprazole 40 MG TAB PO SCH (09:07)
[2020-06-15] MEDS: rifAXIMin 550 MG TABLET PO SCH ×2 (09:07→22:07)
[2020-06-15] MEDS: DOCUSATE SODIUM/SENNA 50/8.6MG TAB PO SCH ×2 (09:07→22:07)
[2020-06-15] MEDS: HEPARIN SOD 5,000 UNIT/0.5 ML VIAL SQ SCH ×2 (09:19→22:06)
[2020-06-15] MEDS: INSULIN HUMAN NPH SC SCH (09:20)
[2020-06-15 09:28] LABS: Hematocrit (blood only) 28.4 % (42-52); Hemoglobin 9.7 g/dL (14.0-18.0); Mean Corpuscular Hgb Conc 34.2 g/dL (32-36); Mean Corpuscular Volume 93.7 fL (80-100); RDW Coefficient of Variation 14.4 % (11.5-14.5); RDW Standard Deviation 49.4 fL (36.4-46.3); Red Blood Count 3.03 M/uL (4.7-6.1); White Blood Count 4.83 K/uL (4.8-10.8)
[2020-06-15 09:41] LABS: INR 1.2 (0.9-1.1); Prothrombin Time 12.9 Seconds (9.0-12.0)
[2020-06-15 09:55] LABS: Albumin Level 1.8 gm/dl (3.4-5.0); BUN Creatinine Ratio 12.7 (10-20); Bilirubin Direct 0.4 mg/dl (0-0.2); Calcium 8.1 mg/dl (8.5-10.1); Creatinine Clr Calc Pharmacy 19.2 ml/min; Est GFR (African American) 15.9; Est GFR (Non-African American) 13.7; Magnesium 3.2 mg/dl (1.8-2.4); Potassium 3.4 mmol/L (3.5-5.1)
[2020-06-15 09:56] LABS: Platelet Count 94 K/uL (130-400)
[2020-06-15 09:58] LABS: Basophils # (auto) 0.01 K/uL (0-0.2); Basophils % (auto) 0.2 %; Bilirubin,Total 1.2 mg/dl (0.2-1); Eosinophils # (auto) 0.12 K/uL (0-0.5); Eosinophils % (auto) 2.5 %; Lymphocytes # (auto) 1.49 K/uL (1.2-3.4); Lymphocytes % (auto) 30.8 %; Monocytes # (auto) 0.86 K/uL (0.11-0.59); Monocytes % (auto) 17.8 %; Neutrophils # (auto) 2.35 K/uL (1.4-6.5); Neutrophils % (auto) 48.7 %; Total Protein 6.5 gm/dl (6.4-8.2)
--- NOTE | 2020-06-15 11:09 | Gastroenterology Progress Note ---
Date of Service June 15, 2020 Assessment & Plan Admission and Anticipated Discharge Date Admission Date: June 03, 2020 Subjective Patient was seen and examined today, he remains with AMS. No events overnight. Ongoing discussions about goals of care with family and alf's medical team regarding palliative care vs Tertiary care center. On exam abdomen is soft but slightly distended, nontender. Labs reviewed. CT scan with fecal retention. Recommend: Lactulose enema if not able to take PO Lactulose. May also use tap water enema. Recall GI if needed. Results & Data ([facility]) Vital Signs (Past 12 Hours) Vital Signs Temp Pulse Pulse Resp BP Pulse Ox 06/15/20 07:44 36.8 C 90 20 148/67 H 96 06/14/20 23:53 36.7 C 94 H 18 132/74 97
--- NOTE | 2020-06-15 13:22 | Hospitalist Progress Note ---
Date of Service June 15, 2020 Assessment & Plan (1) Acute hepatic encephalopathy: Suspect secondary to lack of bowel movements and missed lactulose doses as an outpatient due to noncompliance as per skilled nursing nurses Ammonia levels remain severely elevated despite use of lactulose 30gm TID and Rifaximin 550mg BID Nursing reports from the skilled nursing are that he frequently refuses to take all his Lactulose Initially, his ammonia down to 88 after lactulose enema on admission, mentation was clear, encephalopathy resolved on 06/04 06/05 ammonia up to 187, unclear why,-at that point he was ordered lactulose enemas ammonia down to 110 on 06/06 and then up to 160's on 06/07 improved to 149 and then back up to 158 on 06/09 and down to 140 on 06/11 with persistent encephalopathy on examination Much more awake and conversational although still confused, oriented x 2 on 06/13 On 06/14, has seem to take a sudden turn for the worse and ammonia is up to 160 On 06/15, was significantly lethargic and encephalopathic, not responding to verbal and tactile stimulus but had his eyes open and was staring Finally had a small bowel movement after milk of molasses enema in the morning followed by tapwater enema in the afternoon. 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 Nephrology said that this patient would not be a good candidate for dialysis if he is noncompliant with his medications to prevent hepatic encephalopathy. As per my discussion with GI today, he is certainly not a liver transplant candidate given his history of noncompliance, his renal failure, and overall significantly poor prognosis. Patient's contact, his brother Tramaine, was made aware of his worsening condition and is in agreement with continuing to improve encephalopathy with enemas/bowel regimen, but if develops shortness of breath, pain, agrees to transition to comfort measures only at this time. Contact is TramaineRiggs (the patient's brother), number is [phone]. I have now discussed his care in depth with Tramaine on 06/14 as well as again on 06/15 who understands the overall poor prognosis. He has a clear history of non-compliance with the Lactulose at [facility], physician and several nurses confirmed this over the phone in my opinion the patient needs palliative care as he has no quality of life, lays in bed confused he has advancing renal failure, close to needing dialysis in my opinion he should be on hospice, he would pass away relatively quickly if we did not force him to take lactulose and give lactulose enemas -Okay to advance diet as tolerated if mental status improves -Would not put NG tube down as he has a history of esophageal varices (2) Hyperammonemia: As above (3) Liver cirrhosis: No prior paracentesis. No prior ascites on CT taken here has h/o varices certainly it is advanced given his hyperammonia Appreciate palliative care consultation (4) GERD (gastroesophageal reflux disease): continue PPI if can take p.o. (5) Esophageal varices without bleeding: propranolol 20 mg 3 times daily if can take p.o. (6) Normocytic anemia: Hgb stable, no signs of bleeding (7) HCV (hepatitis C virus): Treated. (8) CKD (chronic kidney disease), stage IV: Acute kidney injury in the setting of CKD stage IV Cr was down to 4.08 but now worsening again to 4.22 He has anasarca and IV fluids were discontinued on 06/13 Continue to hold Bumex Urine output is diminished Has severe hypoalbuminemia Getting edematous/anasarca appreciate consultation from Nephrology Discussed his renal failure along with liver failure with his point of contact, his brother Tramaine on the phone on 06/14 and 06/15. He understands that the patient would not be a good candidate for dialysis if encephalopathy persists. At this point he does not need HD but is approaching the need but would not be a good candidate if cannot reliably take his medications to prevent hepatic encephalopathy as above consult palliative care appreciated (9) Nephrotic range proteinuria: Follow-up outpatient as above (10) Hypomagnesemia: resolved (11) Type 2 diabetes mellitus: HbA1c inaccurate due to CKD, anemia and liver cirrhosis -therefore no need to repeat this. Hold outpatient Novolin 7030 regimen (55 units twice daily) continue NPH 10 to 20 units twice daily depending on BSG with NovoLog sliding scale correction and carb coverage. Hold NPH if not taking p.o. and blood sugars less than 150 (12) Hypertension: controlled continue Norvasc if can take p.o. continue Hydralazine 25mg TID if can take oral pills Otherwise can give IV hydralazine as needed (13) Metabolic acidosis: Prior history of this. continue on sodium bicarbonate if can take p.o. (14) Constipation: Severe, with worsening abdominal distention on 06/14. KUB with colonic distended loops of bowel and significant stool burden Only had a couple small pieces of stool passed with milk of molasses enema and bisacodyl suppository Was on lactulose 3-4 times daily for many days on and which was probably worsening the distention GI recommends discontinuing or reducing lactulose down to once daily Now status post milk of molasses enema x2, tapwater enema today finally resulted in small bowel movement Lactulose enema to be given x1 this evening We will give another tapwater enema in the morning (15) DVT prophylaxis: SCD Heparin SQ Disposition-continued stay, poor overall prognosis with significant worsening of mental status on 06/14 into 06/15 After discussion with his point of contact on 06/14 decision made to pursue DNR/DNI Would transition to comfort measures only if continues to deteriorate, but in the meantime we will continue to work on bowel regimen and improving encephalopathy Could return to the skilled nursing on comfort measures only at that point Palliative care consultation appreciated Admission and Anticipated Discharge Date Admission Date: June 03, 2020 Subjective Patient was extremely lethargic when I saw him in the middle of the day but he did have his eyes open. He would not answer any of my questions and just stared ahead. Guards report that he has been like that all day. I discussed his care with the GI doctor on-call today who agreed with me that he is certainly not a candidate for liver transplant and there is no sense in calling to tertiary care facility for transfer. I discussed his care with his brother/point of contact, Tramaine Moreira, on the phone at length again today about his poor condition. He is in agreement to continue to try to get his bowels to move, but otherwise no aggressive treatment to include NG tube or artificial support. If he develops shortness of breath or symptoms or signs of pain, he is in agreement to transition to comfort measures only at that point using morphine and Ativan. I also called the on-call nurse practitioner, Anuradha, from the skilled nursing and updated her on his status and the decision/conversation had with the patient's brother today. She did say that it is possible to transfer him back to the skilled nursing on comfort measures but it would take a couple of days to order in any necessary comfort medications such as morphine. He was given a tap water enema and a lactulose enema throughout the day and had a small bowel movement as per nursing. Later in the evening, he apparently was more awake and sat up and did tell the nurse that he was thirsty, but then later refused to drink or eat when offered food and water. Review of Systems Review of Systems: Unobtainable due to cognitive status and Unobtainable due to reduced consciousness Physical Exam Constitutional: + ill appearing and + lethargic Staring ahead Eyes: + anicteric sclerae Neck: trachea midline, no thyromegaly Respiratory: normal respiratory effort, lungs clear to auscultation Cardiovascular: Rate/Rhythm: regular rate and regular rhythm Extremities: + edema (2+ pitting edema legs and arms) Chest (Breasts): Chest: normal inspection of chest Gastrointestinal (Abdomen): Inspection/Auscultation: + abdomen distended (Mild and improved from yesterday) and normal bowel sounds Percussion/Palpation: abdomen nontender and no guarding Musculoskeletal: Extremities: no cyanosis and no clubbing Skin: no rashes, warm and dry Neurologic: Speech / Cognition: + abnormal cognition Motor/Sensory: no tremor Psychiatric: Orientation: + not alert Cognition: + recent memory not intact Insight: + severely impaired insight Judgement: + severely impaired judgement Genitourinary: Finn catheter in place Results & Data Results & Data ([facility]) Vital Signs (Past 12 Hours) Vital Signs Temp Pulse Resp BP Pulse Ox 06/15/20 07:44 36.8 C 90 20 148/67 H 96 Laboratory Results 06/15/20 06/15/20 06/15/20 Range/Units 20:59 17:50 12:12 WBC (4.8-10.8) K/uL RBC (4.7-6.1) M/uL Hgb (14.0-18.0) g/dL Hct (42-52) % MCV (80-100) fL MCH (25-34) pg MCHC (32-36) g/dL RDW Std Deviation (36.4-46.3) fL RDW Coeff of Kianna (11.5-14.5) % Plt Count (130-400) K/uL MPV (7.4-10.4) fL Immature Gran % (Auto) % Neut % (Auto) % Lymph % (Auto) % [place] % (Auto) % Eos % (Auto) % Baso % (Auto) % Neut # (Auto) (1.4-6.5) K/uL Lymph # (Auto) (1.2-3.4) K/uL [place] # (Auto) (0.11-0.59) K/uL Eos # (Auto) (0-0.5) K/uL Baso # (Auto) (0-0.2) K/uL Immature Gran # (Auto) (0.00-0.02) K/uL PT (9.0-12.0) Seconds INR (0.9-1.1) Sodium (136-145) mmol/L Potassium (3.5-5.1) mmol/L Chloride (98-107) mmol/L Carbon Dioxide (21-32) mmol/L Anion Gap (3-11) BUN (7-18) mg/dl Creatinine (0.6-1.4) mg/dl Est Cr Clr Drug Dosing ml/min Est GFR ( Amer) Est GFR (Non-Af Amer) BUN/Creatinine Ratio (10-20) Glucose (70-99) mg/dl POC Glucose 162 H 208 H 152 H (70-99) mg/dl Calcium (8.5-10.1) mg/dl Magnesium (1.8-2.4) mg/dl Total Bilirubin (0.2-1) mg/dl Direct Bilirubin (0-0.2) mg/dl AST (15-37) U/L ALT (12-78) U/L Alkaline Phosphatase (45-117) U/L Total Protein (6.4-8.2) gm/dl Albumin (3.4-5.0) gm/dl 06/15/20 06/15/20 06/15/20 Range/Units 09:14 09:14 09:14 WBC 4.83 (4.8-10.8) K/uL RBC 3.03 L (4.7-6.1) M/uL Hgb 9.7 L (14.0-18.0) g/dL Hct 28.4 L (42-52) % MCV 93.7 (80-100) fL MCH 32.0 (25-34) pg MCHC 34.2 (32-36) g/dL RDW Std Deviation 49.4 H (36.4-46.3) fL RDW Coeff of Kianna 14.4 (11.5-14.5) % Plt Count 94 L (130-400) K/uL MPV 11.0 H (7.4-10.4) fL Immature Gran % (Auto) 0.0 % Neut % (Auto) 48.7 % Lymph % (Auto) 30.8 % Galax % (Auto) 17.8 % Eos % (Auto) 2.5 % Baso % (Auto) 0.2 % Neut # (Auto) 2.35 (1.4-6.5) K/uL Lymph # (Auto) 1.49 (1.2-3.4) K/uL Galax # (Auto) 0.86 H (0.11-0.59) K/uL Eos # (Auto) 0.12 (0-0.5) K/uL Baso # (Auto) 0.01 (0-0.2) K/uL Immature Gran # (Auto) 0.00 (0.00-0.02) K/uL PT 12.9 H (9.0-12.0) Seconds INR 1.2 H (0.9-1.1) Sodium 141 (136-145) mmol/L Potassium 3.4 L (3.5-5.1) mmol/L Chloride 107 (98-107) mmol/L Carbon Dioxide 25 (21-32) mmol/L Anion Gap 8.0 (3-11) BUN 54 H (7-18) mg/dl Creatinine 4.22 H (0.6-1.4) mg/dl Est Cr Clr Drug Dosing 19.2 ml/min Est GFR ( Amer) 15.9 Est GFR (Non-Af Amer) 13.7 BUN/Creatinine Ratio 12.7 (10-20) Glucose 136 H (70-99) mg/dl POC Glucose (70-99) mg/dl Calcium 8.1 L (8.5-10.1) mg/dl Magnesium 3.2 H (1.8-2.4) mg/dl Total Bilirubin 1.2 H (0.2-1) mg/dl Direct Bilirubin 0.4 H (0-0.2) mg/dl AST 38 H (15-37) U/L ALT 27 (12-78) U/L Alkaline Phosphatase 95 (45-117) U/L Total Protein 6.5 (6.4-8.2) gm/dl Albumin 1.8 L (3.4-5.0) gm/dl 06/15/20 Range/Units 05:59 WBC (4.8-10.8) K/uL RBC (4.7-6.1) M/uL Hgb (14.0-18.0) g/dL Hct (42-52) % MCV (80-100) fL MCH (25-34) pg MCHC (32-36) g/dL RDW Std Deviation (36.4-46.3) fL RDW Coeff of Kianna (11.5-14.5) % Plt Count (130-400) K/uL MPV (7.4-10.4) fL Immature Gran % (Auto) % Neut % (Auto) % Lymph % (Auto) % [place] % (Auto) % Eos % (Auto) % Baso % (Auto) % Neut # (Auto) (1.4-6.5) K/uL Lymph # (Auto) (1.2-3.4) K/uL [place] # (Auto) (0.11-0.59) K/uL Eos # (Auto) (0-0.5) K/uL Baso # (Auto) (0-0.2) K/uL Immature Gran # (Auto) (0.00-0.02) K/uL PT (9.0-12.0) Seconds INR (0.9-1.1) Sodium (136-145) mmol/L Potassium (3.5-5.1) mmol/L Chloride (98-107) mmol/L Carbon Dioxide (21-32) mmol/L Anion Gap (3-11) BUN (7-18) mg/dl Creatinine (0.6-1.4) mg/dl Est Cr Clr Drug Dosing ml/min Est GFR ( Amer) Est GFR (Non-Af Amer) BUN/Creatinine Ratio (10-20) Glucose (70-99) mg/dl POC Glucose 141 H (70-99) mg/dl Calcium (8.5-10.1) mg/dl Magnesium (1.8-2.4) mg/dl Total Bilirubin (0.2-1) mg/dl Direct Bilirubin (0-0.2) mg/dl AST (15-37) U/L ALT (12-78) U/L Alkaline Phosphatase (45-117) U/L Total Protein (6.4-8.2) gm/dl Albumin (3.4-5.0) gm/dl Diagnostic Findings KUB image personally reviewed by me and agree with the following report: KUB CLINICAL HISTORY: assess for obstruction COMPARISON STUDY: CT of the abdomen and pelvis May 24, 2020. KUB June 14, 2020. FINDINGS: Colonic dilatation has improved since exam of June 14, 2020. There is no evidence for a small bowel obstruction. A moderate amount stool within the colon is noted. This has decreased since prior exam. A 1.1 cm round calcification within the right upper quadrant corresponds to a gallstone within the gallbladder on prior CT. IMPRESSION: 1. No evidence for a bowel obstruction. 2. Interval decrease in colonic dilatation. Moderate amount of stool, decreased since prior exam. 3. Cholelithiasis. PG Care Time/CCT Total # of Minutes Spent Total Time Spent with Patient: Total time spent is greater than 50% in coordina tion of care (as documented) at patient's floor/unit and/or counseling patient: Coding Level of Care Code 96103 Subseq Hosp Care Lvl 3 Diagnoses Acute hepatic encephalopathy K72.00 Hyperammonemia E72.20 Liver cirrhosis K74.60 Ascites presence: without ascites Hepatic cirrhosis type: unspecified hepatic cirrhosis GERD (gastroesophageal reflux disease) K21.9 Esophageal varices without bleeding I85.00 Normocytic anemia D64.9 HCV (hepatitis C virus) B19.20 CKD (chronic kidney disease), stage IV N18.4 Nephrotic range proteinuria R80.9 Hypomagnesemia E83.42 Type 2 diabetes mellitus E11.9 Hypertension I10 Metabolic acidosis E87.2 Constipation K59.00 DVT prophylaxis Z29.9 (1) Liver cirrhosis Ascites presence: without ascites Hepatic cirrhosis type: unspecified hepatic cirrhosis Qualified Code(s): K74.60 - Unspecified cirrhosis of liver
--- NOTE | 2020-06-15 14:34 | XRay Report ---
KUB CLINICAL HISTORY: assess for obstruction COMPARISON STUDY: CT of the abdomen and pelvis May 24, 2020. KUB June 14, 2020. FINDINGS: Colonic dilatation has improved since exam of June 14, 2020. There is no evidence for a small bowel obstruction. A moderate amount stool within the colon is noted. This has decreased since prior exam. A 1.1 cm round calcification within the right upper quadrant corresponds to a gallstone w ithin the gallbladder on prior CT. IMPRESSION: 1. No evidence for a bowel obstruction. 2. Interval decrease in colonic dilatation. Moderate amount of stool, decreased since prior exam. 3. Cholelithiasis. ACT 112: Negative or not required by law. Electronically signed by: Polo Banegas M.D. 06/15/2020 2:33 PM
--- NOTE | 2020-06-15 22:27 | Communication Note ---
Date of Service: June 15, 2020 Notified overnight that pt has not been eating or drinking much over the last day or so. Home NPH discontinued. Has ISS ordered. Resident Activity Tracking Resident Involvement: Sight Mounter Coverage Note Care Provided: Adult Hospital Medicine
--- NOTE | 2020-06-15 22:33 | Communication Note ---
Date of Service: June 15, 2020 Given the high glucose levels despite being NPO with renal failure, basal insulin glargine 5U BID was ordered. 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
[2020-06-16 08:16] LABS: Hematocrit (blood only) 29.4 % (42-52); Hemoglobin 10.2 g/dL (14.0-18.0); Mean Corpuscular Hemoglobin 32.5 pg (25-34); Mean Corpuscular Hgb Conc 34.7 g/dL (32-36); Mean Corpuscular Volume 93.6 fL (80-100); RDW Coefficient of Variation 14.5 % (11.5-14.5); RDW Standard Deviation 49.4 fL (36.4-46.3); Red Blood Count 3.14 M/uL (4.7-6.1); White Blood Count 4.24 K/uL (4.8-10.8)
[2020-06-16 08:19] LABS: Basophils # (auto) 0.01 K/uL (0-0.2); Basophils % (auto) 0.2 %; Eosinophils # (auto) 0.13 K/uL (0-0.5); Eosinophils % (auto) 3.1 %; Lymphocytes # (auto) 1.41 K/uL (1.2-3.4); Lymphocytes % (auto) 33.3 %; Mean Platelet Volume 10.2 fL (7.4-10.4); Monocytes # (auto) 0.84 K/uL (0.11-0.59); Monocytes % (auto) 19.8 %; Neutrophils # (auto) 1.85 K/uL (1.4-6.5); Neutrophils % (auto) 43.6 %; Platelet Count 81 K/uL (130-400)
[2020-06-16 08:24] LABS: INR 1.2 (0.9-1.1); Prothrombin Time 12.8 Seconds (9.0-12.0)
[2020-06-16 08:43] LABS: Albumin Level 1.7 gm/dl (3.4-5.0); BUN Creatinine Ratio 13.1 (10-20); Bilirubin Direct 0.4 mg/dl (0-0.2); Calcium 8.1 mg/dl (8.5-10.1); Creatinine Clr Calc Pharmacy 20.8 ml/min; Est GFR (African American) 17.6; Est GFR (Non-African American) 15.2; Magnesium 2.8 mg/dl (1.8-2.4); Potassium 3.3 mmol/L (3.5-5.1)
[2020-06-16 08:46] LABS: Bilirubin,Total 1.1 mg/dl (0.2-1); Phosphorus 3.4 mg/dl (2.5-4.9); Total Protein 6.4 gm/dl (6.4-8.2)
[2020-06-16] MEDS ORDERED: INSULIN GLARGINE SOLOSTAR 100 UNITS/ML 3 ML PEN SC SCH (09:00)
[2020-06-16] MEDS: PANTOprazole 40 MG TAB PO SCH (09:11)
[2020-06-16] MEDS: PROPRANOLOL HCL 20 MG TAB PO SCH ×3 (09:11→21:11)
[2020-06-16] MEDS: rifAXIMin 550 MG TABLET PO SCH ×2 (09:11→21:11)
[2020-06-16] MEDS: amLODIPine BESYLATE 5 MG TAB PO SCH (09:12)
[2020-06-16] MEDS: hydrALAZINE HCL 25 MG TAB PO SCH ×3 (09:12→21:11)
[2020-06-16] MEDS: DOCUSATE SODIUM/SENNA 50/8.6MG TAB PO SCH ×2 (09:12→21:11)
[2020-06-16] MEDS: SODIUM BICARBONATE 650 MG TAB PO SCH (09:12)
[2020-06-16] MEDS: LACTULOSE SYRUP 30 GM/45 ML UDP PO SCH (09:14)
[2020-06-16] MEDS: INSULIN ASPART 100 UNITS/ML 3 ML PEN SC SCH ×4 (09:15→21:16)
[2020-06-16] MEDS: HEPARIN SOD 5,000 UNIT/0.5 ML VIAL SQ SCH ×2 (09:18→21:17)
[2020-06-16] MEDS: INSULIN GLARGINE SOLOSTAR 100 UNITS/ML 3 ML PEN SC SCH ×2 (10:32→21:16)
--- NOTE | 2020-06-17 00:03 | Hospitalist Progress Note ---
Date of Service June 16, 2020 Assessment & Plan (1) Acute hepatic encephalopathy: Suspect secondary to lack of bowel movements and missed lactulose doses as an outpatient due to noncompliance as per care home nurses Ammonia levels remained severely elevated despite use of lactulose 30gm TID and Rifaximin 550mg BID Nursing reports from the care home are that he frequently refuses to take all his Lactulose Initially, his ammonia down to 88 after lactulose enema on admission, mentation was clear, encephalopathy resolved on 06/04 06/05 ammonia up to 187, unclear why,-at that point he was ordered lactulose enemas ammonia down to 110 on 06/06 and then up to 160's on 06/07 improved to 149 and then back up to 158 on 06/09 and down to 140 on 06/11 with persistent encephalopathy on examination Much more awake and conversational although still confused, oriented x 2 on 06/13 On 06/14, has seem to take a sudden turn for the worse and ammonia is up to 160 On 06/15, was significantly lethargic and encephalopathic, not responding to verbal and tactile stimulus but had his eyes open and was staring Finally had a small bowel movement after milk of molasses enema in the morning followed by tapwater enema in the afternoon. This was followed up by lactulose enema On 06/16, patient was remarkably improved and ammonia is down to 103 after having several bowel movements in the last 24 hours. He was conversive and eating and drinking again. patient has a MELD score of 23 which gives him a 19.6% risk of mortality in the next 3 months Appreciate GI consultation for refractory hepatic encephalopathy -GI suspected hepatorenal syndrome and initially recommended tertiary care transfer if not improving. Nephrology said that this patient would not be a good candidate for dialysis if he is noncompliant with his medications to prevent hepatic encephalopathy. As per my discussion with GI on 06/15, he is certainly not a liver transplant candidate given his history of noncompliance, his renal failure, and overall significantly poor prognosis. Patient's contact, his brother Tramaine, was made aware of his worsening condition and is in agreement with continuing to improve encephalopathy with enemas/bowel regimen, but if develops shortness of breath, pain, agrees to transition to comfort measures only at this time. Contact is Tramaine Moreira (the patient's brother), number is [phone]. I have now discussed his care in depth with Tramaine on 06/14 as well as again on 06/15 who understands the overall poor prognosis. Despite the fact that he continues to wax and wane, ultimately his encephalopathy will likely return with noncompliance with medications. His uremia is also likely contributing to his encephalopathy but that has improved today to. He has a clear history of non-compliance with the Lactulose at [facility], physician and several nurses confirmed this over the phone in my opinion the patient needs palliative care as he has no quality of life, lays in bed confused he has advancing renal failure, close to needing dialysis in my opinion he should be on hospice, he would pass away relatively quickly if we did not force him to take lactulose and give lactulose enemas -Would not put NG tube down if becomes unresponsive again as he has a history of esophageal varices (2) Hyperammonemia: As above (3) Liver cirrhosis: No prior paracentesis. No prior ascites on CT taken here has h/o varices certainly it is advanced given his hyperammonia Appreciate palliative care consultation (4) GERD (gastroesophageal reflux disease): continue PPI if can take p.o. (5) Esophageal varices without bleeding: propranolol 20 mg 3 times daily if can take p.o. (6) Normocytic anemia: Hgb stable, no signs of bleeding (7) HCV (hepatitis C virus): Treated. (8) CKD (chronic kidney disease), stage IV: Acute kidney injury in the setting of CKD stage IV Cr was slightly improved but then was worsening again to 4.22 on 06/15. Now significantly improved to 3.88 on 06/16 He has anasarca and IV fluids were discontinued on 06/13 Continue to hold Bumex Urine output is diminished Has severe hypoalbuminemia appreciate consultation from Nephrology Discussed his renal failure along with liver failure with his point of contact, his brother Tramaine on the phone on 06/14 and 06/15. He understands that the patient would not be a good candidate for dialysis if encephalopathy persists. At this point he does not need HD but is approaching the need but would not be a good candidate if cannot reliably take his medications to prevent hepatic encephalopathy as above consult palliative care appreciated (9) Nephrotic range proteinuria: Follow-up outpatient as above (10) Hypomagnesemia: resolved (11) Type 2 diabetes mellitus: HbA1c inaccurate due to CKD, anemia and liver cirrhosis -therefore no need to repeat this. Hold outpatient Novolin 7030 regimen (55 units twice daily) Discontinued NPH when he was lethargic and not eating Lantus 8 units twice daily has since been restarted now that he is awake and eating again (12) Hypertension: controlled continue Norvasc if can take p.o. continue Hydralazine 25mg TID if can take oral pills Otherwise can give IV hydralazine as needed (13) Metabolic acidosis: Prior history of this. continue on sodium bicarbonate if can take p.o. (14) Constipation: Severe, with worsening abdominal distention on 06/14. KUB with colonic distended loops of bowel and significant stool burden Only had a couple small pieces of stool passed with milk of molasses enema and bisacodyl suppository on that day Was on lactulose 3-4 times daily for many days on and which was probably worsening the distention GI recommends discontinuing or reducing lactulose down to once daily Now status post milk of molasses enema x2, tapwater enema x2 which finally resulted in several bowel movements now and his mental status has remarkably improved as above -Tap water enemas seem to work best for him if needed in the future -For now we will increase lactulose back to twice daily, continue senna/docusate twice daily (15) DVT prophylaxis: SCD Heparin SQ Disposition-continued stay, poor overall prognosis with waxing and waning significant encephalopathy After discussion with his point of contact on 06/14 decision made to pursue DNR/DNI After discussion with Tramaine/point of contact on 06/15, decision was made that the patient would transition to comfort measures only if continues to deteriorate, but in the meantime we will continue to work on bowel regimen and improving encephalopathy Could return to the care home on comfort measures only at that point For now, seems to be slightly improved and will continue current care Palliative care consultation appreciated Admission and Anticipated Discharge Date Admission Date: June 03, 2020 Subjective Patient is remarkably improved today. He is awake and much more alert, conve rsive. The guards report that he ate several meals today and has been drinking plenty of water. He does remain confused at times. He had another large bowel movement today. Review of Systems Review of Systems: All systems reviewed & are unremarkable except as noted in HPI & below Physical Exam Constitutional: WD/WN, vitals as above cooperative; not lethargic Eyes: + anicteric sclerae Neck: trachea midline, no thyromegaly Respiratory: normal respiratory effort, lungs clear to auscultation Cardiovascular: Rate/Rhythm: regular rate and regular rhythm Extremities: + edema (2+ pitting edema legs and arms) Chest (Breasts): Chest: normal inspection of chest Gastrointestinal (Abdomen): Inspection/Auscultation: + abdomen distended (Mild and improved from yesterday) and normal bowel sounds Percussion/Palpation: abdomen nontender and no guarding Musculoskeletal: Extremities: no cyanosis and no clubbing Skin: no rashes, warm and dry Neurologic: moves all extremities and awake; no focal motor deficits (But is generally weak all over, cannot even sit himself forward in the bed on his own) Motor/Sensory: no tremor Psychiatric: Cognition: + recent memory not intact Genitourinary: Finn catheter in place with dark yellow urine Results & Data Results & Data ([facility]) Vital Signs (Past 12 Hours) Vital Signs Temp Pulse Resp BP BP Pulse Ox 06/16/20 23:01 36.9 C 88 18 148/73 H 98 06/16/20 17:31 36.9 C 87 18 147/70 H 98 Laboratory Results 06/16/20 06/16/20 06/16/20 Range/Units 21:08 17:28 11:44 WBC (4.8-10.8) K/uL RBC (4.7-6.1) M/uL Hgb (14.0-18.0) g/dL Hct (42-52) % MCV (80-100) fL MCH (25-34) pg MCHC (32-36) g/dL RDW Std Deviation (36.4-46.3) fL RDW Coeff of Kianna (11.5-14.5) % Plt Count (130-400) K/uL MPV (7.4-10.4) fL Immature Gran % (Auto) % Neut % (Auto) % Lymph % (Auto) % [place] % (Auto) % Eos % (Auto) % Baso % (Auto) % Neut # (Auto) (1.4-6.5) K/uL Lymph # (Auto) (1.2-3.4) K/uL [place] # (Auto) (0.11-0.59) K/uL Eos # (Auto) (0-0.5) K/uL Baso # (Auto) (0-0.2) K/uL Immature Gran # (Auto) (0.00-0.02) K/uL PT (9.0-12.0) Seconds INR (0.9-1.1) Sodium (136-145) mmol/L Potassium (3.5-5.1) mmol/L Chloride (98-107) mmol/L Carbon Dioxide (21-32) mmol/L Anion Gap (3-11) BUN (7-18) mg/dl Creatinine (0.6-1.4) mg/dl Est Cr Clr Drug Dosing ml/min Est GFR ( Amer) Est GFR (Non-Af Amer) BUN/Creatinine Ratio (10-20) Glucose (70-99) mg/dl POC Glucose 180 H 196 H 193 H (70-99) mg/dl Calcium (8.5-10.1) mg/dl Phosphorus (2.5-4.9) mg/dl Magnesium (1.8-2.4) mg/dl Total Bilirubin (0.2-1) mg/dl Direct Bilirubin (0-0.2) mg/dl AST (15-37) U/L ALT (12-78) U/L Alkaline Phosphatase (45-117) U/L Ammonia (11-32) umol/L Total Protein (6.4-8.2) gm/dl Albumin (3.4-5.0) gm/dl 06/16/20 06/16/20 06/16/20 Range/Units 08:19 08:02 08:02 WBC (4.8-10.8) K/uL RBC (4.7-6.1) M/uL Hgb (14.0-18.0) g/dL Hct (42-52) % MCV (80-100) fL MCH (25-34) pg MCHC (32-36) g/dL RDW Std Deviation (36.4-46.3) fL RDW Coeff of Kianna (11.5-14.5) % Plt Count (130-400) K/uL MPV (7.4-10.4) fL Immature Gran % (Auto) % Neut % (Auto) % Lymph % (Auto) % [place] % (Auto) % Eos % (Auto) % Baso % (Auto) % Neut # (Auto) (1.4-6.5) K/uL Lymph # (Auto) (1.2-3.4) K/uL [place] # (Auto) (0.11-0.59) K/uL Eos # (Auto) (0-0.5) K/uL Baso # (Auto) (0-0.2) K/uL Immature Gran # (Auto) (0.00-0.02) K/uL PT (9.0-12.0) Seconds INR (0.9-1.1) Sodium 141 (136-145) mmol/L Potassium 3.3 L (3.5-5.1) mmol/L Chloride 108 H (98-107) mmol/L Carbon Dioxide 25 (21-32) mmol/L Anion Gap 8.0 (3-11) BUN 51 H (7-18) mg/dl Creatinine 3.88 H D (0.6-1.4) mg/dl Est Cr Clr Drug Dosing 20.8 ml/min Est GFR ( Amer) 17.6 Est GFR (Non-Af Amer) 15.2 BUN/Creatinine Ratio 13.1 (10-20) Glucose 141 H (70-99) mg/dl POC Glucose 144 H (70-99) mg/dl Calcium 8.1 L (8.5-10.1) mg/dl Phosphorus 3.4 (2.5-4.9) mg/dl Magnesium 2.8 H (1.8-2.4) mg/dl Total Bilirubin 1.1 H (0.2-1) mg/dl Direct Bilirubin 0.4 H (0-0.2) mg/dl AST 36 (15-37) U/L ALT 25 (12-78) U/L Alkaline Phosphatase 92 (45-117) U/L Ammonia 103.2 H (11-32) umol/L Total Protein 6.4 (6.4-8.2) gm/dl Albumin 1.7 L (3.4-5.0) gm/dl 06/16/20 06/16/20 Range/Units 08:02 08:02 WBC 4.24 L (4.8-10.8) K/uL RBC 3.14 L (4.7-6.1) M/uL Hgb 10.2 L (14.0-18.0) g/dL Hct 29.4 L (42-52) % MCV 93.6 (80-100) fL MCH 32.5 (25-34) pg MCHC 34.7 (32-36) g/dL RDW Std Deviation 49.4 H (36.4-46.3) fL RDW Coeff of Kianna 14.5 (11.5-14.5) % Plt Count 81 L (130-400) K/uL MPV 10.2 (7.4-10.4) fL Immature Gran % (Auto) 0.0 % Neut % (Auto) 43.6 % Lymph % (Auto) 33.3 % [place] % (Auto) 19.8 % Eos % (Auto) 3.1 % Baso % (Auto) 0.2 % Neut # (Auto) 1.85 (1.4-6.5) K/uL Lymph # (Auto) 1.41 (1.2-3.4) K/uL [place] # (Auto) 0.84 H (0.11-0.59) K/uL Eos # (Auto) 0.13 (0-0.5) K/uL Baso # (Auto) 0.01 (0-0.2) K/uL Immature Gran # (Auto) 0.00 (0.00-0.02) K/uL PT 12.8 H (9.0-12.0) Seconds INR 1.2 H (0.9-1.1) Sodium (136-145) mmol/L Potassium (3.5-5.1) mmol/L Chloride (98-107) mmol/L Carbon Dioxide (21-32) mmol/L Anion Gap (3-11) BUN (7-18) mg/dl Creatinine (0.6-1.4) mg/dl Est Cr Clr Drug Dosing ml/min Est GFR ( Amer) Est GFR (Non-Af Amer) BUN/Creatinine Ratio (10-20) Glucose (70-99) mg/dl POC Glucose (70-99) mg/dl Calcium (8.5-10.1) mg/dl Phosphorus (2.5-4.9) mg/dl Magnesium (1.8-2.4) mg/dl Total Bilirubin (0.2-1) mg/dl Direct Bilirubin (0-0.2) mg/dl AST (15-37) U/L ALT (12-78) U/L Alkaline Phosphatase (45-117) U/L Ammonia (11-32) umol/L Total Protein (6.4-8.2) gm/dl Albumin (3.4-5.0) gm/dl PG Care Time/CCT Total # of Minutes Spent Total Time Spent with Patient: Total time spent is greater than 50% in coordination of care (as documented) at patient's floor/unit and/or counseling patient: Coding Level of Care Code 48575 Subseq Hosp Care Lvl 2 Diagnoses Acute hepatic encephalopathy K72.00 Hyperammonemia E72.20 Liver cirrhosis K74.60 Ascites presence: without ascites Hepatic cirrhosis type: unspecified hepatic cirrhosis GERD (gastroesophageal reflux disease) K21.9 Esophageal varices without bleeding I85.00 Normocytic anemia D64.9 HCV (hepatitis C virus) B19.20 CKD (chronic kidney disease), stage IV N18.4 Nephrotic range proteinuria R80.9 Hypomagnesemia E83.42 Type 2 diabetes mellitus E11.9 Hypertension I10 Metabolic acidosis E87.2 Constipation K59.00 DVT prophylaxis Z29.9 (1) Liver cirrhosis Ascites presence: without ascites Hepatic cirrhosis type: unspecified hepatic cirrhosis Qualified Code(s): K74.60 - Unspecified cirrhosis of liver
[2020-06-17 06:22] LABS: Hematocrit (blood only) 30.6 % (42-52); Hemoglobin 10.2 g/dL (14.0-18.0); Mean Corpuscular Hemoglobin 31.6 pg (25-34); Mean Corpuscular Hgb Conc 33.3 g/dL (32-36); Mean Corpuscular Volume 94.7 fL (80-100); RDW Coefficient of Variation 14.4 % (11.5-14.5); RDW Standard Deviation 49.6 fL (36.4-46.3); Red Blood Count 3.23 M/uL (4.7-6.1); White Blood Count 4.95 K/uL (4.8-10.8)
[2020-06-17 06:26] LABS: Mean Platelet Volume 10.7 fL (7.4-10.4); Platelet Count 70 K/uL (130-400)
[2020-06-17 06:39] LABS: Albumin Level 1.9 gm/dl (3.4-5.0); BUN Creatinine Ratio 13.4 (10-20); Bilirubin Direct 0.4 mg/dl (0-0.2); Calcium 8.1 mg/dl (8.5-10.1); Creatinine Clr Calc Pharmacy 21.2 ml/min; Est GFR (African American) 17.9; Est GFR (Non-African American) 15.4; Potassium 3.6 mmol/L (3.5-5.1)
[2020-06-17 06:42] LABS: Bilirubin,Total 1.4 mg/dl (0.2-1); Total Protein 6.9 gm/dl (6.4-8.2)
[2020-06-17 07:00] LABS: Eosinophils # (auto) 0.15 K/uL (0-0.5); Immature Granulocytes # (auto) 0.01 K/uL (0.00-0.02); Immature Granulocytes % (auto) 0.2 %; Lymphocytes # (auto) 0.93 K/uL (1.2-3.4); Lymphocytes % (auto) 18.8 %; Monocytes # (auto) 0.88 K/uL (0.11-0.59); Monocytes % (auto) 17.8 %; Neutrophils # (auto) 2.98 K/uL (1.4-6.5); Neutrophils % (auto) 60.2 %
--- NOTE | 2020-06-17 07:08 | Communication Note ---
Date of Service: June 17, 2020 Notified by nursing that pt has increasing lethargy. Ammonia level this AM has increased to >200. Consider a lactulose enema given the pt's inability to take PO meds due to lethargy? 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
[2020-06-17] MEDS: INSULIN ASPART 100 UNITS/ML 3 ML PEN SC SCH ×2 (08:34→18:43)
[2020-06-17] MEDS: HEPARIN SOD 5,000 UNIT/0.5 ML VIAL SQ SCH (08:35)
[2020-06-17] MEDS: hydrALAZINE HCL 25 MG TAB PO SCH (08:38)
[2020-06-17] MEDS: PROPRANOLOL HCL 20 MG TAB PO SCH (08:38)
[2020-06-17] MEDS: DOCUSATE SODIUM/SENNA 50/8.6MG TAB PO SCH (08:39)
[2020-06-17] MEDS: PANTOprazole 40 MG TAB PO SCH (08:39)
[2020-06-17] MEDS: SODIUM BICARBONATE 650 MG TAB PO SCH (08:39)
[2020-06-17] MEDS: amLODIPine BESYLATE 5 MG TAB PO SCH (08:39)
[2020-06-17] MEDS: rifAXIMin 550 MG TABLET PO SCH (08:39)
[2020-06-17] MEDS ORDERED: LACTULOSE SYRUP 30 GM/45 ML UDP PO SCH (09:00)
[2020-06-17] MEDS ORDERED: INSULIN GLARGINE SOLOSTAR 100 UNITS/ML 3 ML PEN SC SCH (09:00)
--- NOTE | 2020-06-17 09:05 | Palliative Care Progress Note ---
Date of Service June 17, 2020 Assessment & Plan (1) Palliative care encounter: -I met with this patient in room 358. There were two alf guards present. The patient was showing minimal improvement over the past 4 days. He was intermittently taking his Lactulose and his Ammonia levels were as low as 100 up until yesterday. -Yesterday, his Ammonia level doubled and was over 200. -On assessment, the patient is obtunded and was unresponsive to a sternal rub. As previously stated, the pt. has remarkable history of being non-compliant with overall worsening mental status and chronic diarrhea from the medications required to improve his mental status. -Lengthy conversation held with his brother Tramaine over the phone. We had talked previously and he supported his transition to DNR/DNI. -At this time, I do not feel there is benefit to adding rectal Lactulose enema's and do not feel it will alter his course progress. I did express to the brother that I feel that his body is trying to and we would like to keep him comfortable through the process. Tramaine responded by saying "If there is nothing you can do to bring him back, let him go". I explained what comfort measures included and he was understanding. -I phoned Jolene, one of the nurse managers at [facility] and asked if the patients brother could have a phone conversation with him. She escalated this to the [place] at [facility] who approved this. I informed the two guards and the patients brother, Tramaine, was placed on speakerphone at [facility]'s bedside. He said he loved him and 'good-bye'. -All non-essential medications, blood draws and vital signs were discontinued. Comfort medications, including Morphine IV, Robinul IV, and Ativan were ordered. Discussed with nursing when to administer comfort medications, including when the patient grimaces, uses accessory muscles for breathing or appears uncomfortable. -Anticipate patient will likely pass over the next hours to day or two. I do not feel patient is stable enough for transfer back to [facility] as he is obtunded, has significant abdominal distension. Pt is not a GIP candidate as it is anticipated that his symptoms can be controlled. We will continue to provide support throughout this process. -PPS: 10% (2) HCV (hepatitis C virus): (3) Esophageal varices without bleeding: (4) CKD (chronic kidney disease), stage IV: Admission and Anticipated Discharge Date Admission Date: June 03, 2020 Review of Systems Review of Systems: Unobtainable due to reduced consciousness Physical Exam Constitutional: + ill appearing, + frail appearing, + lethargic and + malnourished ENMT: external ear and nose normal, oropharynx normal Neck: trachea midline, no thyromegaly Respiratory: + labored breathing Auscultation: + diminished lung sounds Cardiovascular: Rate/Rhythm: regular rate and regular rhythm Heart Sounds: normal S1 and normal S2; no murmur Extremities: normal capillary refill and + edema Gastrointestinal (Abdomen): normal bowel sounds, soft, nontender, no hepatosplenomegaly Skin: no rashes, warm and dry Psychiatric: Orientation: + not alert and + not oriented to person Insight: + severely impaired insight Judgement: + severely impaired judgement Results & Data ([facility]) Vital Signs (Past 12 Hours) Vital Signs Temp Pulse Pulse Resp BP Pulse Ox 06/17/20 05:57 82 157/80 H 99 06/16/20 23:01 36.9 C 88 18 148/73 H 98 PG Care Time/CCT Total # of Minutes Spent Total Time Spent with Patient: Total time spent is greater than 50% in coordination of care (as documented) at patient's floor/unit and/or counseling patient: 65 Coding Level of Care Code 74717 Subseq Hosp Care Lvl 3 Diagnoses Palliative care encounter Z51.5 HCV (hepatitis C virus) B19.20 Esophageal varices without bleeding I85.00 CKD (chronic kidney disease), stage IV N18.4 Time Spent (min) 65 Time Spent Midlevel total time spent 65 minutes with > 50% of that time spent assessing the patient, discussing goals of care with the patients brother, [facility] and [facility]
[2020-06-17] MEDS ORDERED: LORazepam 0.5 MG TAB PO PRN (11:42)
[2020-06-17] MEDS ORDERED: ONDANSETRON 4 MG OD TAB SL PRN (11:42)
[2020-06-17] MEDS ORDERED: ATROPINE SULFATE 1% OP SOLN 2 ML BTL SL PRN (11:42)
[2020-06-17] MEDS ORDERED: LORazepam 0.5 MG/1 ML VIAL IV PRN (11:42)
[2020-06-17] MEDS ORDERED: ONDANSETRON INJ 2 MG/ML 2 ML VIAL IV PRN (11:42)
--- NOTE | 2020-06-17 15:27 | Hospitalist Progress Note ---
Date of Service June 17, 2020 Assessment & Plan (1) Comfort measures only status: Per palliative discussion with family 06/17 given patient's poor prognosis. Will discontinue any interventions except those meant to keep the patient comfortable. Prior to this the following plan was implemented: (2) Acute hepatic encephalopathy: Suspect secondary to lack of bowel movements and missed lactulose doses as an outpatient due to noncompliance as per [facility] nurses Ammonia levels remained severely elevated despite use of lactulose 30gm TID and Rifaximin 550mg BID Nursing reports from the [facility] are that he frequently refuses to take all his Lactulose Patient with cycles of elevated ammonia and periods of altered mental status with intervals of more lucidity. 06/16 with ammonia level 258 and obtundation. patient has a MELD score of 23 which gives him a 19.6% risk of mortality in the next 3 months Appreciate GI consultation for refractory hepatic encephalopathy -GI suspected hepatorenal syndrome and initially recommended tertiary care [facility] if not improving. Nephrology said that this patient would not be a good candidate for dialysis if he is noncompliant with his medications to prevent hepatic encephalopathy. As per Dr. Crooks's discussion with GI on 06/15, he is certainly not a liver transplant candidate given his history of noncompliance, his renal failure, and overall significantly poor prognosis. Patient's contact, his brother Tramaine, was made aware of his worsening condition and is in agreement with continuing to improve encephalopathy with enemas/bowel regimen, but if develops shortness of breath, pain, agrees to transition to comfort measures only at this time. Despite the fact that he continues to wax and wane, ultimately his encephalopathy will likely return with noncompliance with medications. His urem ia is also likely contributing to his encephalopathy He has a clear history of non-compliance with the Lactulose at [facility], physician and several nurses confirmed this over the phone he has advancing renal failure, close to needing dialysis Palliative has been involved and patient was made comfort measures only as above (3) Hyperammonemia: As above (4) Liver cirrhosis: No prior paracentesis. No prior ascites on CT taken here has h/o varices certainly it is advanced given his hyperammonia Appreciate palliative care consultation (5) GERD (gastroesophageal reflux disease): maintained on ppi (6) Esophageal varices without bleeding: propranolol 20 mg 3 times daily (7) Normocytic anemia: Hgb stable, no signs of bleeding (8) HCV (hepatitis C virus): Treated. (9) CKD (chronic kidney disease), stage IV: Acute kidney injury in the setting of CKD stage IV Urine output is diminished Has severe hypoalbuminemia appreciate consultation from Nephrology Discussed his renal failure along with liver failure with his point of contact, his brother Tramaine on the phone on 06/14 and 06/15. He understands that the patient would not be a good candidate for dialysis if encephalopathy persists. At this point he does not need HD but is approaching the need but would not be a good candidate if cannot reliably take his medications to prevent hepatic encephalopathy as above consult palliative care appreciated (10) Nephrotic range proteinuria: Follow-up outpatient as above (11) Hypomagnesemia: resolved (12) Type 2 diabetes mellitus: HbA1c inaccurate due to CKD, anemia and liver cirrhosis -therefore no need to repeat this. Hold outpatient Novolin 7030 regimen (55 units twice daily) Discontinued NPH when he was lethargic and not eating Lantus 8 units twice daily (13) Hypertension: controlled Norvasc, Hydralazine 25mg TID (14) Metabolic acidosis: Prior history of this - sodium bicarbonate (15) Constipation: Severe, with worsening abdominal distention on 06/14. KUB with colonic distended loops of bowel and significant stool burden Only had a couple small pieces of stool passed with milk of molasses enema and bisacodyl suppository on that day Was on lactulose 3-4 times daily for many days on and which was probably worsening the distention GI recommends discontinuing or reducing lactulose down to once daily Now status post milk of molasses enema x2, tapwater enema x2 which finally resulted in several bowel movements now and his mental status has remarkably improved as above -Tap water enemas seem to work best for him if needed in the future -For now we will increase lactulose back to twice daily, continue senna/docusate twice daily (16) DVT prophylaxis: SCD Disposition-continued stay, comfort measures only Admission and Anticipated Discharge Date Admission Date: June 03, 2020 Subjective Mr. Moreira is obtunded and does not awaken to sternal rub or pressure to his nailbed. Physical Exam Physical Exam: General: no distress Eyes: normal inspection, PERLL Respiratory: chest non tender, clear to auscultation, normal breath sounds, no respiratory distress, no accessory muscle use Cardiac: regular rate and rhythm, no rub or gallop, no murmur, no edema, no jvd GI/: active bowel sounds, no abd pain or tenderness, soft, non distended Extremities: cannot assess due to obtunded state Neuro/Psych: obtunded Skin: normal color, dry Results & Data Results & Data ([facility]) Vital Signs (Past 12 Hours) Vital Signs Temp Pulse Pulse Resp BP BP Pulse Ox 06/17/20 10:19 89 149/79 H 97 06/17/20 08:00 36.5 C 85 18 143/80 H 99 06/17/20 05:57 82 157/80 H 99 PG Care Time/CCT Total # of Minutes Spent Total Time Spent with Patient: Total time spent is greater than 50% in coordination of care (as documented) at patient's floor/unit and/or counseling patient: Coding Level of Care Code 18454 Subseq Hosp Care Lvl 2 Diagnoses Comfort measures only status Z51.5 Acute hepatic encephalopathy K72.00 Hyperammonemia E72.20 Liver cirrhosis K74.60 Ascites presence: without ascites Hepatic cirrhosis type: unspecified hepatic cirrhosis GERD (gastroesophageal reflux disease) K21.9 Esophageal varices without bleeding I85.00 Normocytic anemia D64.9 HCV (hepatitis C virus) B19.20 CKD (chronic kidney disease), stage IV N18.4 Nephrotic range proteinuria R80.9 Hypomagnesemia E83.42 Type 2 diabetes mellitus E11.9 Hypertension I10 Metabolic acidosis E87.2 Constipation K59.00 DVT prophylaxis Z29.9 (1) Liver cirrhosis Ascites presence: without ascites Hepatic cirrhosis type: unspecified hepatic cirrhosis Qualified Code(s): K74.60 - Unspecified cirrhosis of liver
[2020-06-17] MEDS ORDERED: GLYCOPYRROLATE 0.2 MG/ML VIAL IV PRN (18:21)
[2020-06-17] MEDS: INSULIN HUMAN NPH SC SCH (23:33)
--- NOTE | 2020-06-18 17:36 | Hospitalist Progress Note ---
Date of Service June 18, 2020 Assessment & Plan (1) Comfort measures only status: Per palliative discussion with family 06/17 given patient's poor prognosis. Will discontinue any interventions except those meant to keep the patient comfortable. Given his stability and improvement in mentation, [facility] this will take a day or two for them to get his medications. Prior to this the following plan was implemented: (2) Acute hepatic encephalopathy: Suspect secondary to lack of bowel movements and missed lactulose doses as an outpatient due to noncompliance [facility] Ammonia levels remained severely elevated despite use of lactulose 30gm TID and Rifaximin 550mg BID [facility] reports [facility] are that he frequently refuses to take all his Lactulose Patient with cycles of elevated ammonia and periods of altered mental status with intervals of more lucidity. 06/16 with ammonia level 258 and obtundation. patient has a MELD score of 23 which gives him a 19.6% risk of mortality in the next 3 months Appreciate GI consultation for refractory hepatic encephalopathy -GI suspected hepatorenal syndrome and initially recommended tertiary care transfer if not improving. Nephrology said that this patient would not be a good candidate for dialysis if he is noncompliant with his medications to prevent hepatic encephalopathy. As per Dr. Crooks's discussion with GI on 06/15, he is certainly not a liver transplant candidate given his history of noncompliance, his renal failure, and overall significantly poor prognosis. Patient's contact, his brother Tramaine, was made aware of his worsening condition and is in agreement with continuing to improve encephalopathy with enemas/bowel regimen, but if develops shortness of breath, pain, agrees to transition to comfort measures only at this time. Despite the fact that he continues to wax and wane, ultimately his encephalopathy will likely return with noncompliance with medications. His uremia is also likely contributing to his encephalopathy He has a clear history of non-compliance with the Lactulose at [facility], physician and several nurses confirmed this over the phone he has advancing renal failure, close to needing dialysis Palliative has been involved and patient was made comfort measures only as above (3) Hyperammonemia: As above (4) Liver cirrhosis: No prior paracentesis. No prior ascites on CT taken here has h/o varices certainly it is advanced given his hyperammonia Appreciate palliative care consultation (5) GERD (gastroesophageal reflux disease): maintained on ppi (6) Esophageal varices without bleeding: propranolol 20 mg 3 times daily (7) Normocytic anemia: Hgb stable, no signs of bleeding (8) HCV (hepatitis C virus): Treated. (9) CKD (chronic kidney disease), stage IV: Acute kidney injury in the setting of CKD stage IV Urine output is diminished Has severe hypoalbuminemia appreciate consultation from Nephrology Discussed his renal failure along with liver failure with his point of contact, his brother Tramaine on the phone on 06/14 and 06/15. He understands that the patient would not be a good candidate for dialysis if encephalopathy persists. At this point he does not need HD but is approaching the need but would not be a good candidate if cannot reliably take his medications to prevent hepatic encephalopathy as above consult palliative care appreciated (10) Nephrotic range proteinuria: Follow-up outpatient as above (11) Hypomagnesemia: resolved (12) Type 2 diabetes mellitus: HbA1c inaccurate due to CKD, anemia and liver cirrhosis -therefore no need to repeat this. Hold outpatient Novolin 7030 regimen (55 units twice daily) Discontinued NPH when he was lethargic and not eating Lantus 8 units twice daily (13) Hypertension: controlled Norvasc, Hydralazine 25mg TID (14) Metabolic acidosis: Prior history of this - sodium bicarbonate (15) Constipation: Severe, with worsening abdominal distention on 06/14. KUB with colonic distended loops of bowel and significant stool burden Only had a couple small pieces of stool passed with milk of molasses enema and bisacodyl suppository on that day Was on lactulose 3-4 times daily for many days on and which was probably worsening the distention GI recommends discontinuing or reducing lactulose down to once daily Now status post milk of molasses enema x2, tapwater enema x2 which finally resulted in several bowel movements now and his mental status has remarkably improved as above -Tap water enemas seem to work best for him if needed in the future -For now we will increase lactulose back to twice daily, continue senna/docusate twice daily (16) DVT prophylaxis: SCD Disposition-continued stay, comfort measures only Admission and Anticipated Discharge Date Admission Date: June 03, 2020 Subjective Mr. Moreira is much more alert today though confused, believes he is in [place]. Unable to answer my questions sensibly Physical Exam Physical Exam: General: no distress Eyes: normal inspection, PERLL Respiratory: chest non tender, clear to auscultation, normal breath sounds, no respiratory distress, no accessory muscle use Cardiac: regular rate and rhythm, no rub or gallop, no murmur, no edema, no jvd GI/: active bowel sounds, no abd pain or tenderness, soft, non distended Extremities: normal range of motion, normal strength, non tender Neuro/Psych: alert and oriented to person, normal mood and affect Skin: normal color, dry PG Care Time/CCT Total # of Minutes Spent Total Time Spent with Patient: Total time spent is greater than 50% in coordination of care (as documented) at patient's floor/unit and/or counseling patient: Coding Level of Care Code 69323 Subseq Hosp Care Lvl 2 Diagnoses Comfort measures only status Z51.5 Acute hepatic encephalopathy K72.00 Hyperammonemia E72.20 Liver cirrhosis K74.60 Hepatic cirrhosis type: unspecified hepatic cirrhosis Ascites presence: without ascites GERD (gastroesophageal reflux disease) K21.9 Esophageal varices without bleeding I85.00 Normocytic anemia D64.9 HCV (hepatitis C virus) B19.20 CKD (chronic kidney disease), stage IV N18.4 Nephrotic range proteinuria R80.9 Hypomagnesemia E83.42 Type 2 diabetes mellitus E11.9 Hypertension I10 Metabolic acidosis E87.2 Constipation K59.00 DVT prophylaxis Z29.9 (1) Liver cirrhosis Hepatic cirrhosis type: unspecified hepatic cirrhosis Ascites presence: without ascites Qualified Code(s): K74.60 - Unspecified cirrhosis of liver
[2020-06-18 19:27] LABS: Alpha 1 Antitrypsin 157 mg/dL (83-199); Anti Nuclear Antibody Screen NEGATIVE (NEGATIVE); Ceruloplasmin 40 mg/dL (18-36); Hepatitis C Genotype Not Detected
[2020-06-19 07:53] LABS: Hemoglobin 9.5 g/dL (14.0-18.0); Mean Corpuscular Hemoglobin 31.8 pg (25-34); Mean Corpuscular Hgb Conc 33.9 g/dL (32-36); Mean Corpuscular Volume 93.6 fL (80-100); RDW Coefficient of Variation 14.3 % (11.5-14.5); RDW Standard Deviation 48.4 fL (36.4-46.3); Red Blood Count 2.99 M/uL (4.7-6.1); White Blood Count 4.33 K/uL (4.8-10.8)
[2020-06-19 08:08] LABS: Mean Platelet Volume 10.4 fL (7.4-10.4); Platelet Count 86 K/uL (130-400)
--- NOTE | 2020-06-19 12:54 | Hospitalist Progress Note ---
Date of Service June 19, 2020 Assessment & Plan (1) Comfort measures only status: Per palliative discussion with family 06/17 given patient's poor prognosis. Will discontinue any interventions except those meant to keep the patient comfortable. Given his stability and improvement in mentation, will try to discharge him [facility] but this will take a day or two for them to get his medications. Prior to this the following plan was implemented: (2) Acute hepatic encephalopathy: Suspect secondary to lack of bowel movements and missed lactulose doses as an outpatient due to noncompliance as per long term nurses Ammonia levels remained severely elevated despite use of lactulose 30gm TID and Rifaximin 550mg BID Nursing reports from the long term are that he frequently refuses to take all his Lactulose Patient with cycles of elevated ammonia and periods of altered mental status with intervals of more lucidity. 06/16 with ammonia level 258 and obtundation. patient has a MELD score of 23 which gives him a 19.6% risk of mortality in the next 3 months Appreciate GI consultation for refractory hepatic encephalopathy -GI suspected hepatorenal syndrome and initially recommended tertiary care transfer if not improving. Nephrology said that this patient would not be a good candidate for dialysis if he is noncompliant with his medications to prevent hepatic encephalopathy. As per Dr. Crooks's discussion with GI on 06/15, he is certainly not a liver transplant candidate given his history of noncompliance, his renal failure, and overall significantly poor prognosis. Patient's contact, his brother Tramaine, was made aware of his worsening condition and is in agreement with continuing to improve encephalopathy with enemas/bowel regimen, but if develops shortness of breath, pain, agrees to transition to comfort measures only at this time. Despite the fact that he continues to wax and wane, ultimately his encephalopathy will likely return with noncompliance with medications. His uremia is also likely contributing to his encephalopathy He has a clear history of non-compliance with the [facility]actulose at [facility], physician and several nurses confirmed this over the phone he has advancing renal failure, close to needing dialysis Palliative has been involved and patient was made comfort measures only as above (3) Hyperammonemia: As above (4) Liver cirrhosis: No prior paracentesis. No prior ascites on CT taken here has h/o varices certainly it is advanced given his hyperammonia Appreciate palliative care consultation (5) GERD (gastroesophageal reflux disease): maintained on ppi (6) Esophageal varices without bleeding: propranolol 20 mg 3 times daily (7) Normocytic anemia: Hgb stable, no signs of bleeding (8) HCV (hepatitis C virus): Treated. (9) CKD (chronic kidney disease), stage IV: Acute kidney injury in the setting of CKD stage IV Urine output is diminished Has severe hypoalbuminemia appreciate consultation from Nephrology Discussed his renal failure along with liver failure with his point of contact, his brother Tramaine on the phone on 06/14 and 06/15. He understands that the patient would not be a good candidate for dialysis if encephalopathy persists. At this point he does not need HD but is approaching the need but would not be a good candidate if cannot reliably take his medications to prevent hepatic encephalopathy as above consult palliative care appreciated (10) Nephrotic range proteinuria: Follow-up outpatient as above (11) Hypomagnesemia: resolved (12) Type 2 diabetes mellitus: HbA1c inaccurate due to CKD, anemia and liver cirrhosis -therefore no need to repeat this. Hold outpatient Novolin 7030 regimen (55 units twice daily) Discontinued NPH when he was lethargic and not eating Lantus 8 units twice daily (13) Hypertension: controlled Norvasc, Hydralazine 25mg TID (14) Metabolic acidosis: Prior history of this - sodium bicarbonate (15) Constipation: Severe, with worsening abdominal distention on 06/14. KUB with colonic distended loops of bowel and significant stool burden Only had a couple small pieces of stool passed with milk of molasses enema and bisacodyl suppository on that day Was on lactulose 3-4 times daily for many days on and which was probably worsening the distention GI recommends discontinuing or reducing lactulose down to once daily Now status post milk of molasses enema x2, tapwater enema x2 which finally resulted in several bowel movements now and his mental status has remarkably improved as above -Tap water enemas seem to work best for him if needed in the future -For now we will increase lactulose back to twice daily, continue senna/docusate twice daily (16) DVT prophylaxis: SCD Disposition-continued stay, comfort measures only. Discharge instructions were faxed to the long term. They will need 24-48 hours to obtain patient's medications before he can be transferred back. Admission and Anticipated Discharge Date Admission Date: June 03, 2020 Subjective Mr. Moreira continues to be awake and alert today, oriented to person only. Appears comfortable, denies any pain. Physical Exam Physical Exam: General: no distress Eyes: normal inspection, PERLL Respiratory: chest non tender, clear to auscultation, normal breath sounds, no respiratory distress, no accessory muscle use Cardiac: regular rate and rhythm, no rub or gallop, no murmur, no edema, no jvd GI/: active bowel sounds, no abd pain or tenderness, firm, distended Extremities: normal range of motion, normal strength, non tender Neuro/Psych: alert and oriented to person, normal mood and affect Skin: normal color, dry PG Care Time/CCT Total # of Minutes Spent Total Time Spent with Patient: Total time spent is greater than 50% in coordination of care (as documented) at patient's floor/unit and/or counseling patient: Coding Level of Care Code 99399 Subseq Hosp Care Lvl 2 Diagnoses Comfort measures only status Z51.5 Acute hepatic encephalopathy K72.00 Hyperammonemia E72.20 Liver cirrhosis K74.60 Hepatic cirrhosis type: unspecified hepatic cirrhosis Ascites presence: without ascites GERD (gastroesophageal reflux disease) K21.9 Esophageal varices without bleeding I85.00 Normocytic anemia D64.9 HCV (hepatitis C virus) B19.20 CKD (chronic kidney disease), stage IV N18.4 Nephrotic range proteinuria R80.9 Hypomagnesemia E83.42 Type 2 diabetes mellitus E11.9 Hypertension I10 Metabolic acidosis E87.2 Constipation K59.00 DVT prophylaxis Z29.9 (1) Liver cirrhosis Hepatic cirrhosis type: unspecified hepatic cirrhosis Ascites presence: without ascites Qualified Code(s): K74.60 - Unspecified cirrhosis of liver
--- NOTE | 2020-06-19 16:22 | Palliative Care Progress Note ---
Date of Service June 19, 2020 Assessment & Plan (1) Palliative care encounter: Goal for care is comfort directed. He has not required medication for pain, dyspnea, anxiety. His mental status waxes and wanes. Plan for return to [facility] with hospice care. (2) Acute hepatic encephalopathy: (3) CKD (chronic kidney disease), stage IV: Admission and Anticipated Discharge Date Admission Date: June 03, 2020 Subjective Per RN, patient was awake and interactive today. His brother was in to visit briefly with him. He is less interactive at this time but opens eyes and res ponds to questions. He denies pain or discomfort. He denies shortness of breath. He has been eating small amounts at meals. Review of Systems Review of Systems: Unobtainable due to reduced consciousness (other than listed in HPI) Physical Exam Constitutional: + disheveled and + lethargic (but arousable) Respiratory: normal respiratory effort; no labored breathing Gastrointestinal (Abdomen): Inspection/Auscultation: abdomen not distended Musculoskeletal: moving all extremities Skin: warm and dry PG Care Time/CCT Total # of Minutes Spent Total Time Spent with Patient: Total time spent is greater than 50% in coordination of care (as documented) at patient's floor/unit and/or counseling patient: Coding Level of Care Code 43803 Subseq Hosp Care Lvl 2 Diagnoses Palliative care encounter Z51.5 Acute hepatic encephalopathy K72.00 CKD (chronic kidney disease), stage IV N18.4 Time Spent (min) 26
[2020-06-20] MEDS ORDERED: LACTULOSE SYRUP 30 GM/45 ML UDP PO SCH (09:00)
--- NOTE | 2020-06-20 13:38 | Discharge Summary ---
Date of Service June 20, 2020 Admission HPI Per Admitting Provider Chicho Moreira is a 65 year old male resident at [facility] with chronic kidney disease stage IV/V and liver cirrhosis secondary to treated hepatitis C who presents to the ER due to altered mental state. Concern for altered mental state and lethargy per correction staff today. The patient is unable to give any history. He is alert but disorientated/non-cooperative. Denies any pain, nausea, vomiting. Unable to tell me when his last bowel movement was. I remember the patient from his admission in early April. At that time he was alert and orientated but reported to be more lethargic at that time. He is currently further off that baseline. He was admitted from April 28-2019 and subsequently transferred to [facility] for further work-up due to concern he may need hemodialysis at that time. He was significantly dry on admission likely from overdiuresis. He was admitted at [facility] from May 01-2019 and stabilized renal function and encephalopathy improved with lactulose. Recommended outpatient follow-up including renal biopsy. Nephrotic range proteinuria with subsequent serum immunofixation normal. He was readmitted at [facility] from May 24-2019 with similar lethargy and altered mental state concerns. At that time he he was diagnosed with acute hepatic encephalopathy but was also hypoglycemic and hypokalemic with concern for partial small bowel obstruction on CT. Ultimately discharged with holding his spironolactone, switching nadolol to propranolol and starting hydralazine 25mg PO TID although none of these changes were noted on his recent correction medications. Per correction medication records he refused the lactulose on three occasions 1-2 days ago. Xifaxan held 2 days ago for 1 dose for unknown reason. Principal Diagnosis Hepatic encephalopathy Discharge Exam Constitutional + ill appearing Respiratory normal respiratory effort, lungs clear to auscultation Cardiovascular RRR, no murmur, no edema Gastrointestinal (Abdomen) Inspection/Auscultation: + abdomen distended Percussion/Palpation: + abdomen firm; abdomen nontender Musculoskeletal no cyanosis or clubbing, extremities motor strength 5/5 Skin no rashes, warm and dry Neurologic moves all extremities and awake Psychiatric Orientation: alert and oriented to person Discharge Data Allergies Allergy/AdvReac Type Severity Reaction Status Date / Time No Known Allergies Allergy Unverified 05/30/20 10:42 Consultations 06/03/20 12:25 ED Decision to Admit Stat 06/09/20 17:53 Consult Palliative Care Routine 06/10/20 15:21 Consult Gastroenterology Routine 06/17/20 11:42 Consult Case Management - Discharge Planning Routine Consult Palliative Care Routine Ordered Studies 06/03/20 10:42 CT head/brain wo con Stat 06/07/20 13:30 US renal/blad retro comp Routine Hospital Course (1) Comfort measures only status: Per palliative discussion with family 06/17 given patient's poor prognosis. Will discontinue any interventions except those meant to keep the patient comfortable. Given his stability and improvement in mentation, will try to discharge him to comfort care at the correction but this will take a day or two for them to get his medications. Prior to this the following plan was implemented: (2) Acute hepatic encephalopathy: Suspect secondary to lack of bowel movements and missed lactulose doses as an outpatient due to noncompliance as per correction nurses Ammonia levels remained severely elevated despite use of lactulose 30gm TID and Rifaximin 550mg BID Nursing reports from the correction are that he frequently refuses to take all his Lactulose Patient with cycles of elevated ammonia and periods of altered mental status with intervals of more lucidity. 06/16 with ammonia level 258 and obtundation. patient has a MELD score of 23 which gives him a 19.6% risk of mortality in the next 3 months Appreciate GI consultation for refractory hepatic encephalopathy -GI suspected hepatorenal syndrome and initially recommended tertiary care transfer if not improving. Nephrology said that this patient would not be a good candidate for dialysis if he is noncompliant with his medications to prevent hepatic encephalopathy. As per Dr. Crooks's discussion with GI on 06/15, he is certainly not a liver transplant candidate given his history of noncompliance, his renal failure, and overall significantly poor prognosis. Patient's contact, his brother Tramaine, was made aware of his worsening condition and is in agreement with continuing to improve encephalopathy with enemas/bowel regimen, but if develops shortness of breath, pain, agrees to transition to comfort measures only at this time. Despite the fact that he continues to wax and wane, ultimately his encephalopathy will likely return with noncompliance with medications. His uremia is also likely contributing to his encephalopathy He has a clear history of non-compliance with the Lactulose at [facility], physician and several nurses confirmed this over the phone he has advancing renal failure, close to needing dialysis Palliative has been involved and patient was made comfort measures only as above (3) Liver cirrhosis: No prior paracentesis. No prior ascites on CT taken here has h/o varices certainly it is advanced given his hyperammonia Appreciate palliative care consultation (4) GERD (gastroesophageal reflux disease): maintained on ppi (5) Esophageal varices without bleeding: propranolol 20 mg 3 times daily (6) Normocytic anemia: Hgb stable, no signs of bleeding (7) HCV (hepatitis C virus): Treated. (8) CKD (chronic kidney disease), stage IV: Acute kidney injury in the setting of CKD stage IV Urine output is diminished Has severe hypoalbuminemia appreciate consultation from Nephrology Discussed his renal failure along with liver failure with his point of contact, his brother Tramaine on the phone on 06/14 and 06/15. He understands that the patient would not be a good candidate for dialysis if encephalopathy persists. At this point he does not need HD but is approaching the need but would not be a good candidate if cannot reliably take his medications to prevent hepatic encephalopathy as above consult palliative care appreciated (9) Nephrotic range proteinuria: Follow-up outpatient as above (10) Type 2 diabetes mellitus: HbA1c inaccurate due to CKD, anemia and liver cirrhosis -therefore no need to repeat this. Hold outpatient Novolin 7030 regimen (55 units twice daily) Discontinued NPH when he was lethargic and not eating Lantus 8 units twice daily (11) Hypertension: controlled Norvasc, Hydralazine 25mg TID (12) Metabolic acidosis: Prior history of this - sodium bicarbonate (13) Constipation: Severe, with worsening abdominal distention on 06/14. KUB with colonic distended loops of bowel and significant stool burden Only had a couple small pieces of stool passed with milk of molasses enema and bisacodyl suppository on that day Was on lactulose 3-4 times daily for many days on and which was probably worsening the distention GI recommends discontinuing or reducing lactulose down to once daily Now status post milk of molasses enema x2, tapwater enema x2 which finally resulted in several bowel movements now and his mental status has remarkably improved as above -Tap water enemas seem to work best for him if needed in the future -For now we will increase lactulose back to twice daily, continue senna/docusate twice daily (14) DVT prophylaxis: SCD Disposition- back to correction on comfort measures Total Time Total Time Spent Total Time Spent (In Minutes): greater than 30 minutes Discharge Plan Discharge Items Patient Disposition: [facility] Facility Reason For Visit: ACUTE HEPATIC ENCEPHALOPATHY Discharge Diagnosis: Hepatic encephalopathy Activity: Resume your previous activity Non-emergency contact: Primary Care Provider Call non-emergency contact if: you have any medication questions Follow-up/Referrals: Irais POE [Primary Care Provider] - Diet: Regular Addtl Attending Provider Instructions: Mr. Moreira will return to correction on hospice. (2) Acute hepatic encephalopathy: Suspect secondary to lack of bowel movements and missed lactulose doses as an outpatient due to noncompliance as per correction nurses Ammonia levels remained severely elevated despite use of lactulose 30gm TID and Rifaximin 550mg BID Nursing reports from the correction are that he frequently refuses to take all his Lactulose Patient with cycles of elevated ammonia and periods of altered mental status with intervals of more lucidity. 06/16 with ammonia level 258 and obtundation but then more alert on 06/18 patient has a MELD score of 23 which gives him a 19.6% risk of mortality in the next 3 months -GI suspected hepatorenal syndrome and initially recommended tertiary care transfer if not improving. Nephrology said that this patient would not be a good candidate for dialysis if he is noncompliant with his medications to prevent hepatic encephalopathy. As per discussion with GI on 06/15, he is certainly not a liver transplant candidate given his history of noncompliance, his renal failure, and overall significantly poor prognosis. Patient's contact, his brother Tramaine, was made aware of his worsening condition and is in agreement with continuing to improve encephalopathy with enemas/bowel regimen, but if develops shortness of breath, pain, agrees to transition to comfort measures only at this time. Despite the fact that he continues to wax and wane, ultimately his encephalopathy will likely return with noncompliance with medications. His uremia is also likely contributing to his encephalopathy He has a clear history of non-compliance with the Lactulose at [facility], physician and several nurses confirmed this over the phone he has advancing renal failure, close to needing dialysis Palliative has been involved and patient was made comfort measures only on 06/17 after discussion with family Recommend daily 30 mg po lactulose and senna plus docusate for bowels. (3) Hyperammonemia: As above (4) Liver cirrhosis: No prior paracentesis. No prior ascites on CT taken here has h/o varices certainly it is advanced given his hyperammonia (5) GERD (gastroesophageal reflux disease): maintained on ppi - discontinued for comfort measures (6) Esophageal varices without bleeding: propranolol 20 mg 3 times daily - discontinued for comfort measures (7) Normocytic anemia: Hgb stable, no signs of bleeding (8) HCV (hepatitis C virus): Treated. (9) CKD (chronic kidney disease), stage IV: Acute kidney injury in the setting of CKD stage IV Urine output is diminished Has severe hypoalbuminemia See above discussion concerning patient not being a good candidate for dialysis (10) Nephrotic range proteinuria: Follow-up outpatient as above (11) Hypomagnesemia: resolved (12) Type 2 diabetes mellitus: Hold outpatient Novolin 7030 regimen (55 units twice daily) Discontinued NPH when he was lethargic and not eating Lantus 8 units twice daily prior to comfort measures at which point it was discontinued (13) Hypertension: antihypertensives discontinued for comfort measures (14) Metabolic acidosis: Prior history of this - sodium bicarbonate held for comfort measures (15) Constipation: Severe, with worsening abdominal distention on 06/14. KUB with colonic distended loops of bowel and significant stool burden Only had a couple small pieces of stool passed with milk of molasses enema and bisacodyl suppository on that day Was on lactulose 3-4 times daily for many days on and which was probably worsening the distention Could continue lactulose and senna/docusate twice daily if he is agreeable to keep bowels moving for his comfort. Pending Studies at Discharge: No Stand-Alone Forms: My [facility] Skilled Items Patient informed of condition?: Yes (confused, does not comprehend well ) Discharge Level of Care: Other Communicable Disease: No Discharge Prognosis: Deteriorating Lines: None Urinary Catheter: No Medications and DC Order Prescriptions: New glycopyrrolate 0.2 mg/mL Solution 0.2 mg IV Q3H PRN (Reason: secretions) Qty: 1 RF: 0 atropine 1 % Drops 4 drp sublingual Q1H PRN (Reason: secretions) Qty: 1 RF: 0 lorazepam 0.5 mg tablet 0.5 mg PO Q4H PRN (Reason: anxiety) Qty: 20 RF: 0 morphine 20 mg/5 mL (4 mg/mL) solution 2.5 mg PO Q6H PRN (Reason: dyspnea) Qty: 100 RF: 0 Discontinued nortriptyline 25 mg Capsule 25 mg PO HS RF: 0 omeprazole 20 mg Capsule,Delayed Release(Dr/Ec) 20 mg PO QAM RF: 0 Novolin R Flexpen 100 unit/mL (3 mL) Insulin Pen 0 unit SUBCUT UD PRN (Reason: Blood sugar) RF: 0 Vitron-C 65 mg iron- 125 mg Tablet,Delayed Release (Dr/Ec) 1 tab PO QAM RF: 0 epoetin amy-epbx 10,000 unit/mL Solution 10,000 unit subcut TH RF: 0 lactulose 20 gram/30 mL Solution 30 ml PO QID Qty: 1200 RF: 0 amlodipine 10 mg tablet 10 mg PO QAM RF: 0 bumetanide 2 mg Tablet 2 mg PO QAM RF: 0 aspirin 81 mg Tablet,Delayed Release (Dr/Ec) 81 mg PO QAM RF: 0 Novolin 70-30 FlexPen U-100 100 unit/mL (70-30) Insulin Pen 55 unit SUBCUT BID RF: 0 Xifaxan 550 mg Tablet 550 mg PO BID RF: 0 spironolactone 25 mg Tablet 50 mg PO BID RF: 0 nadolol 40 mg Tablet 40 mg PO BID RF: 0 Discharge Orders: Discharge Order (Routine); Ordered 06/18/20 Ordered By: Jaci Yun Admission Data Admit Date/Time: 06/03/20 13:47 Attending Provider: Eduardo Hess Admit Provider: Trevon Asif Primary Care Provider: Irais POE Other Providers: Trevon Asif ; Chandni Dawson ; Blake Thomas ; Ying Rivera Other Interventions: Discharge Summary Assessment (RN) Last Done: 06/20/20 12:19 Supervising Physician Co-Signing Physician Notes Patient seen and examined on the day of discharge. I agree with the discharge summary by Jaci HE. I have reviewed the chart including labs, imaging and plans for discharge. patient is calm, disoriented, no distress at all, plan for palliative care back at [facility] - Hepatic encephalopathy resistant to high doses of Lactulose, Rifaximin complicated by advanced renal failure, stage IV, borderline stage V not appropriate for dialysis as he is non-compliant with lactulose with encephalopathy 2 physician decision made to make patient palliative care meat trimmer, tar heel, hospitalist and physician at [facility] are all in agreement with plan patient's family was contacted with permission of [facility], they are aware of his terminal state Coding Level of Care Code D/C Day Management <30 mins Diagnoses Comfort measures only status Z51.5 Acute hepatic encephalopathy K72.00 Liver cirrhosis K74.60 Ascites presence: without ascites Hepatic cirrhosis type: unspecified hepatic cirrhosis GERD (gastroesophageal reflux disease) K21.9 Esophageal varices without bleeding I85.00 Normocytic anemia D64.9 HCV (hepatitis C virus) B19.20 CKD (chronic kidney disease), stage IV N18.4 Nephrotic range proteinuria R80.9 Type 2 diabetes mellitus E11.9 Hypertension I10 Metabolic acidosis E87.2 Constipation K59.00 DVT prophylaxis Z29.9
== END 2020-06-20 14:22 | DRG 441 ==
LOC: ED 09:55 → 2S 13:47 → SUATTDRO 13:47 → 2S 14:20 → 3W 06-07 23:35 → 3E 06-17 14:41 → UNDODISIN 06-19 16:40

== ENCOUNTER 2020-07-21 10:16 | Inpatient (IN) ==
--- NOTE | 2020-07-21 10:51 | Emergency Department Note ---
History of Present Illness General Chief complaint: Shortness of Breath/Dyspnea Stated complaint: SOB Time Seen by Provider: 07/21/20 10:29 History of Present Illness This is a 65-year-old male that presents to the emergency department via special skills officer escort with complaints of "shortness of breath, kidney issues". Patient has a past medical history significant for that of hepatic encephalopathy, HCV, liver cirrhosis, end-stage liver disease, chronic kidney disease, type 2 diabetes among others. Per report, the patient was here about a month and a half ago and at that time appeared to have poor prognosis and was discharged to [facility] with palliative care/comfort measures. Patient seemed to improve and now is mentating quite well. Over the past few days they note that he has had increased lower extremity edema. This has progressed now to the scrotum. Patient also feels short of breath when he lies flat. He denies any chest pain at this time. The patient is currently incarcerated at [facility]. Home Medications Medication Instructions Recorded Confirmed Type acetaminophen [Tylenol] 650 mg PO Q8H PRN 06/28/20 07/21/20 History insulin NPH and regular human 30 unit SUBCUT QAM 06/28/20 07/21/20 History [Novolin 70-30 FlexPen U-100] insulin regular human [Novolin R 0 unit SUBCUT .SLIDINGSCALE PRN 06/28/20 07/21/20 History Flexpen] lactulose 20 g PO TID PRN 06/28/20 07/21/20 History rifaximin [Xifaxan] 550 mg PO BID 06/28/20 07/21/20 History morphine 10 mg PO QAM 07/21/20 07/21/20 History nadolol 40 mg PO BID 07/21/20 07/21/20 History spironolactone 25 mg PO BID 07/21/20 07/21/20 History Allergies Allergy/AdvReac Type Severity Reaction Status Date / Time No Known Drug Allergies Allergy NKDA Unverified 07/21/20 10:59 Past Med/Surg History Medical History Acute hepatic encephalopathy Acute kidney injury Allergic rhinitis Anemia, unspecified Chronic kidney disease, unspecified Esophageal varices without bleeding Flatulence GERD (gastroesophageal reflux disease) HCV (hepatitis C virus) Treated Hyperlipidemia Hypertension Liver cirrhosis Low back pain Metabolic acidosis Microscopic hematuria Onychomycosis Palliative care encounter Partial small bowel obstruction Proteinuria Pruritus, unspecified Type 2 diabetes mellitus Umbilical hernia without obstruction or gangrene Social History Smoking Status: Former smoker Hx Alcohol Use: Yes Alcohol type: beer and hard liquor Hx Substance Use: Yes Preferred Language: Hebrew Communication Ability: Effective Color Corrector Required: No Beliefs That Will Affect Care: None Current Living Situation: Other Current Living Situation Comment: Prisoner at [facility] Feels Safe at Home: Yes Assistive Devices: None Review of Systems A total of 10 systems reviewed and were otherwise negative Physical Exam Vital Signs Vital Signs - 24 hr 07/21/20 10:17 07/21/20 10:28 07/21/20 11:05 Temperature 36.7 C Temperature Source Temporal Artery Scan Pulse Rate 68 Pulse Rate [Apical] Pulse Rhythm [Apical] Respiratory Rate 17 Respiratory Effort / Characteristics Short of Breath Non-Labored Respiratory Depth Normal Respiratory Pattern Regular Regular Blood Pressure 173/81 H Blood Pressure [Left Arm] Blood Pressure Mean 111 Blood Pressure Mean [Left Arm] Blood Pressure Position Sitting Pulse Oximetry 100 95 Oxygen Delivery Method Room Air Room Air Sepsis Recent Fever Within 48 Hours No Sepsis New/Unexplained Change in Mental Status No Sepsis Action Taken by Nursing No Action Required 07/21/20 12:28 07/21/20 13:05 07/21/20 13:31 Temperature Temperature Source Pulse Rate 72 71 Pulse Rate [Apical] 89 Pulse Rhythm [Apical] Regular Respiratory Rate 25 H 20 19 Respiratory Effort / Characteristics Short of Breath Respiratory Depth Respiratory Pattern Blood Pressure 176/101 H 151/73 H Blood Pressure [Left Arm] 176/101 H Blood Pressure Mean 118 118 Blood Pressure Mean [Left Arm] 126 Blood Pressure Position Pulse Oximetry 100 96 95 Oxygen Delivery Method Room Air Sepsis Recent Fever Within 48 Hours Sepsis New/Unexplained Change in Mental Status Sepsis Action Taken by Nursing 07/21/20 14:02 07/21/20 16:10 07/21/20 17:10 Temperature Temperature Source Pulse Rate 70 Pulse Rate [Apical] 71 Pulse Rhythm [Apical] Regular Respiratory Rate 18 20 17 Respiratory Effort / Characteristics Respiratory Depth Respiratory Pattern Regular Blood Pressure 141/65 H Blood Pressure [Left Arm] 152/66 H Blood Pressure Mean 87 Blood Pressure Mean [Left Arm] 94 Blood Pressure Position Pulse Oximetry 95 98 97 Oxygen Delivery Method Room Air Room Air Sepsis Recent Fever Within 48 Hours Sepsis New/Unexplained Change in Mental Status Sepsis Action Taken by Nursing 07/21/20 17:34 Temperature Temperature Source Pulse Rate Pulse Rate [Apical] 73 Pulse Rhythm [Apical] Regular Respiratory Rate 21 Respiratory Effort / Characteristics Spontaneous Respiratory Depth Respiratory Pattern Blood Pressure Blood Pressure [Left Arm] 153/91 H Blood Pressure Mean Blood Pressure Mean [Left Arm] 111 Blood Pressure Position Pulse Oximetry 96 Oxygen Delivery Method Room Air Sepsis Recent Fever Within 48 Hours Sepsis New/Unexplained Change in Mental Status Sepsis Action Taken by Nursing VITAL SIGNS - Vital signs and nursing notes were reviewed. Stable and afebrile. GENERAL - 65-year-old male appearing his stated age who is in no acute distress. Communicates well with provider and answers questions appropriately. SKIN - Without rashes. There is diffuse, bilateral lower extremity edema that does extend superiorly to involve the scrotum. No evidence of Huong gangrene. HEAD - NC/AT. MOUTH/OROPHARYNX - Without perioral cyanosis. NECK - Neck with FROM. No nuchal rigidity. LUNGS - Chest wall symmetric without accessory muscle use, intercostals retractions, or central cyanosis. Normal vesicular breath sounds CTA B/L. No wheezes, rales, or rhonchi appreciated. CARDIAC - RRR with S1/S2. No murmur, rubs, or gallops appreciated. ABDOMEN -the abdomen is distended. It is nontender. EXTREMITIES -bilateral lower extremity pitting edema noted. No break in the integument. No erythema. +5/5 strength noted in UE/LE bilaterally. NEUROLOGIC - Cranial nerves II through XII grossly intact. PSYCH - A&Ox3 and cooperates fully with examiner. Pt is very pleasant and interacts well with examiner. Course Administered Medications Sodium Bicarbonate 150 meq/ (Dextrose) 1,150 mls @ 125 mls/hr IV .[id number] JENNIFER Stop: 08/20/20 16:44 Last Admin: 07/21/20 17:33 Dose: 125 mls/hr Documented by: [id number] Discontinued Medications Albuterol (Albuterol 0.083% Nebu Soln 3 Ml Vial) 10 mg NEB NOW STA Stop: 07/21/20 16:33 Last Admin: 07/21/20 17:10 Dose: 10 mg Documented by: [id number] Dextrose (Dextrose 50% 50 Ml Syringe) 50 ml IV NOW ONE Stop: 07/21/20 16:33 Last Admin: 07/21/20 16:57 Dose: 50 ml Documented by: [id number] Furosemide (Furosemide 40 Mg/4 Ml Vial) 80 mg IV NOW STA Stop: 07/21/20 16:33 Last Admin: 07/21/20 16:58 Dose: 80 mg Documented by: [id number] Sodium Chloride (Nss) 500 mls @ 125 mls/hr IV .Q4H JENNIFER Stop: 08/20/20 13:59 Last Admin: 07/21/20 14:33 Dose: Not Given Documented by: [id number] Calcium Gluconate 2,000 mg/ (Sodium Chloride) 70 mls @ 280 mls/hr IV NOW STA Stop: 07/21/20 17:32 Last Infusion: 07/21/20 18:25 Dose: 0 mls/hr Documented by: [id number] Admin: 07/21/20 17:32 Dose: 280 mls/hr Documented by: [id number] Insulin Human Regular (Novolin-R Insulin Per Unit Charge) 10 units IV NOW STA Stop: 07/21/20 16:33 Last Admin: 07/21/20 16:58 Dose: 10 units Documented by: [id number] Cosigned by: [id number] Miscellaneous (Stat Iv) 1 ea N/A NOW STA Stop: 07/21/20 16:33 Last Admin: 07/21/20 17:33 Dose: Not Given Documented by: [id number] Medical Decision Making Laboratory Data Result diagrams: 07/21/20 12:57 07/21/20 17:05 Lab Results 07/21/20 07/21/20 07/21/20 Range/Units 12:08 12:08 12:08 WBC (4.8-10.8) K/uL RBC (4.7-6.1) M/uL Hgb (14.0-18.0) g/dL POC Hgb (14.0-18.0) g/dl Hct (42-52) % POC Hct (42-52) % MCV (80-100) fL MCH (25-34) pg MCHC (32-36) g/dL RDW Std Deviation (36.4-46.3) fL RDW Coeff of Kianna (11.5-14.5) % Plt Count (130-400) K/uL MPV (7.4-10.4) fL Immature Gran % (Auto) % Neut % (Auto) % Lymph % (Auto) % Bladen % (Auto) % Eos % (Auto) % Baso % (Auto) % Neut # (Auto) (1.4-6.5) K/uL Lymph # (Auto) (1.2-3.4) K/uL Bladen # (Auto) (0.11-0.59) K/uL Eos # (Auto) (0-0.5) K/uL Baso # (Auto) (0-0.2) K/uL Immature Gran # (Auto) (0.00-0.02) K/uL PT Cancelled INR Cancelled APTT Cancelled PTT Ratio Cancelled POC Sodium (135-144) mmol/L Sodium 137 (136-145) mmol/L POC Potassium (3.3-5.0) mmol/L Potassium 6.2 H* (3.5-5.1) mmol/L POC Chloride (101-112) mmol/L Chloride 112 H (98-107) mmol/L Carbon Dioxide 18 L (21-32) mmol/L POC Total CO2 (24-31) mmol/L Anion Gap 7.0 (3-11) POC Anion Gap (16-25) mmol/L POC BUN (7-18) mg/dl BUN 70 H (7-18) mg/dl Creatinine 3.78 H (0.6-1.4) mg/dl POC Creatinine (0.6-1.3) mg/dl Est Cr Clr Drug Dosing 23.4 ml/min Est GFR ( Amer) 18.1 Est GFR (Non-Af Amer) 15.6 BUN/Creatinine Ratio 18.6 (10-20) Glucose 161 H (70-99) mg/dl POC Glucose (other) (70-99) mg/dl Calcium 8.1 L (8.5-10.1) mg/dl POC Ioniz Calcium Sofia (1.12-1.32) mmol/l Magnesium 2.3 (1.8-2.4) mg/dl Total Bilirubin 0.9 (0.2-1) mg/dl AST 35 (15-37) U/L ALT 23 (12-78) U/L Alkaline Phosphatase 213 H (45-117) U/L Ammonia (11-32) umol/L Troponin I 0.024 (0-0.045) ng/ml Total Protein 7.2 (6.4-8.2) gm/dl Albumin 1.9 L (3.4-5.0) gm/dl Globulin 5.3 H (2.5-4.0) gm/dl Albumin/Globulin Ratio 0.4 L (0.9-2) Urine Color Urine Appearance (Clear) Urine pH (4.5-7.5) Ur Specific [place] (1.000-1.030) Urine Protein (Negative) Urine Glucose (UA) (Negative) Urine Ketones (Negative) Urine Blood (Negative) Urine Nitrite (Negative) Urine Bilirubin (Negative) Urine Urobilinogen (Negative) Ur Leukocyte Esterase (Negative) Urine WBC (Auto) (0-5) /hpf Urine RBC (Auto) (0-4) /hpf U Hyaline Cast (Auto) (0-5) /lpf U Epithel Cells (Auto) (0-5) /lpf Urine Bacteria (Auto) (Negative) SARS-CoV-2 Ag (Rapid) (Negative) Blood Type Antibody Screen 07/21/20 07/21/20 07/21/20 Range/Units 12:57 12:57 12:57 WBC 5.78 (4.8-10.8) K/uL RBC 2.56 L (4.7-6.1) M/uL Hgb 8.2 L (14.0-18.0) g/dL POC Hgb (14.0-18.0) g/dl Hct 25.1 L (42-52) % POC Hct (42-52) % MCV 98.0 (80-100) fL MCH 32.0 (25-34) pg MCHC 32.7 (32-36) g/dL RDW Std Deviation 54.9 H (36.4-46.3) fL RDW Coeff of Kianna 15.4 H (11.5-14.5) % Plt Count 135 (130-400) K/uL MPV 10.8 H (7.4-10.4) fL Immature Gran % (Auto) 0.0 % Neut % (Auto) 68.1 % Lymph % (Auto) 15.4 % Bladen % (Auto) 14.4 % Eos % (Auto) 1.9 % Baso % (Auto) 0.2 % Neut # (Auto) 3.94 (1.4-6.5) K/uL Lymph # (Auto) 0.89 L (1.2-3.4) K/uL Bladen # (Auto) 0.83 H (0.11-0.59) K/uL Eos # (Auto) 0.11 (0-0.5) K/uL Baso # (Auto) 0.01 (0-0.2) K/uL Immature Gran # (Auto) 0.00 (0.00-0.02) K/uL PT 13.5 H INR 1.3 H APTT 33.2 H PTT Ratio 1.2 POC Sodium (135-144) mmol/L Sodium (136-145) mmol/L POC Potassium (3.3-5.0) mmol/L Potassium (3.5-5.1) mmol/L POC Chloride (101-112) mmol/L Chloride (98-107) mmol/L Carbon Dioxide (21-32) mmol/L POC Total CO2 (24-31) mmol/L Anion Gap (3-11) POC Anion Gap (16-25) mmol/L POC BUN (7-18) mg/dl BUN (7-18) mg/dl Creatinine (0.6-1.4) mg/dl POC Creatinine (0.6-1.3) mg/dl Est Cr Clr Drug Dosing ml/min Est GFR ( Amer) Est GFR (Non-Af Amer) BUN/Creatinine Ratio (10-20) Glucose (70-99) mg/dl POC Glucose (other) (70-99) mg/dl Calcium (8.5-10.1) mg/dl POC Ioniz Calcium Sofia (1.12-1.32) mmol/l Magnesium (1.8-2.4) mg/dl Total Bilirubin (0.2-1) mg/dl AST (15-37) U/L ALT (12-78) U/L Alkaline Phosphatase (45-117) U/L Ammonia (11-32) umol/L Troponin I (0-0.045) ng/ml Total Protein (6.4-8.2) gm/dl Albumin (3.4-5.0) gm/dl Globulin (2.5-4.0) gm/dl Albumin/Globulin Ratio (0.9-2) Urine Color Urine Appearance (Clear) Urine pH (4.5-7.5) Ur Specific [place] (1.000-1.030) Urine Protein (Negative) Urine Glucose (UA) (Negative) Urine Ketones (Negative) Urine Blood (Negative) Urine Nitrite (Negative) Urine Bilirubin (Negative) Urine Urobilinogen (Negative) Ur Leukocyte Esterase (Negative) Urine WBC (Auto) (0-5) /hpf Urine RBC (Auto) (0-4) /hpf U Hyaline Cast (Auto) (0-5) /lpf U Epithel Cells (Auto) (0-5) /lpf Urine Bacteria (Auto) (Negative) SARS-CoV-2 Ag (Rapid) (Negative) Blood Type O Positive Antibody Screen NEGATIVE 07/21/20 07/21/20 07/21/20 Range/Units 13:13 14:21 17:05 WBC (4.8-10.8) K/uL RBC (4.7-6.1) M/uL Hgb (14.0-18.0) g/dL POC Hgb (14.0-18.0) g/dl Hct (42-52) % POC Hct (42-52) % MCV (80-100) fL MCH (25-34) pg MCHC (32-36) g/dL RDW Std Deviation (36.4-46.3) fL RDW Coeff of Kianna (11.5-14.5) % Plt Count (130-400) K/uL MPV (7.4-10.4) fL Immature Gran % (Auto) % Neut % (Auto) % Lymph % (Auto) % Bladen % (Auto) % Eos % (Auto) % Baso % (Auto) % Neut # (Auto) (1.4-6.5) K/uL Lymph # (Auto) (1.2-3.4) K/uL Bladen # (Auto) (0.11-0.59) K/uL Eos # (Auto) (0-0.5) K/uL Baso # (Auto) (0-0.2) K/uL Immature Gran # (Auto) (0.00-0.02) K/uL PT INR APTT PTT Ratio POC Sodium (135-144) mmol/L Sodium 138 (136-145) mmol/L POC Potassium (3.3-5.0) mmol/L Potassium 5.9 H (3.5-5.1) mmol/L POC Chloride (101-112) mmol/L Chloride 112 H (98-107) mmol/L Carbon Dioxide 18 L (21-32) mmol/L POC Total CO2 (24-31) mmol/L Anion Gap 8.0 (3-11) POC Anion Gap (16-25) mmol/L POC BUN (7-18) mg/dl BUN 73 H (7-18) mg/dl Creatinine 3.88 H (0.6-1.4) mg/dl POC Creatinine (0.6-1.3) mg/dl Est Cr Clr Drug Dosing 22.8 ml/min Est GFR ( Amer) 17.6 Est GFR (Non-Af Amer) 15.2 BUN/Creatinine Ratio 18.9 (10-20) Glucose 162 H (70-99) mg/dl POC Glucose (other) (70-99) mg/dl Calcium 8.2 L (8.5-10.1) mg/dl POC Ioniz Calcium Sofia (1.12-1.32) mmol/l Magnesium (1.8-2.4) mg/dl Total Bilirubin (0.2-1) mg/dl AST (15-37) U/L ALT (12-78) U/L Alkaline Phosphatase (45-117) U/L Ammonia 29.3 (11-32) umol/L Troponin I (0-0.045) ng/ml Total Protein (6.4-8.2) gm/dl Albumin (3.4-5.0) gm/dl Globulin (2.5-4.0) gm/dl Albumin/Globulin Ratio (0.9-2) Urine Color Yellow Urine Appearance Clear (Clear) Urine pH 5.0 (4.5-7.5) Ur Specific [place] 1.019 (1.000-1.030) Urine Protein 3+ H (Negative) Urine Glucose (UA) Trace H (Negative) Urine Ketones Trace H (Negative) Urine Blood 1+ H (Negative) Urine Nitrite Negative (Negative) Urine Bilirubin Negative (Negative) Urine Urobilinogen Negative (Negative) Ur Leukocyte Esterase Negative (Negative) Urine WBC (Auto) 1-5 (0-5) /hpf Urine RBC (Auto) 0-4 (0-4) /hpf U Hyaline Cast (Auto) 5-10 H (0-5) /lpf U Epithel Cells (Auto) 10-20 H (0-5) /lpf Urine Bacteria (Auto) Negative (Negative) SARS-CoV-2 Ag (Rapid) (Negative) Blood Type Antibody Screen 07/21/20 07/21/20 Range/Units 17:14 Unknown WBC (4.8-10.8) K/uL RBC (4.7-6.1) M/uL Hgb (14.0-18.0) g/dL POC Hgb 8.2 L (14.0-18.0) g/dl Hct (42-52) % POC Hct 24 L (42-52) % MCV (80-100) fL MCH (25-34) pg MCHC (32-36) g/dL RDW Std Deviation (36.4-46.3) fL RDW Coeff of Kianna (11.5-14.5) % Plt Count (130-400) K/uL MPV (7.4-10.4) fL Immature Gran % (Auto) % Neut % (Auto) % Lymph % (Auto) % Bladen % (Auto) % Eos % (Auto) % Baso % (Auto) % Neut # (Auto) (1.4-6.5) K/uL Lymph # (Auto) (1.2-3.4) K/uL Bladen # (Auto) (0.11-0.59) K/uL Eos # (Auto) (0-0.5) K/uL Baso # (Auto) (0-0.2) K/uL Immature Gran # (Auto) (0.00-0.02) K/uL PT INR APTT PTT Ratio POC Sodium 139 (135-144) mmol/L Sodium (136-145) mmol/L POC Potassium 5.9 H (3.3-5.0) mmol/L Potassium (3.5-5.1) mmol/L POC Chloride 114 H (101-112) mmol/L Chloride (98-107) mmol/L Carbon Dioxide (21-32) mmol/L POC Total CO2 17 L (24-31) mmol/L Anion Gap (3-11) POC Anion Gap 15.0 L (16-25) mmol/L POC BUN 70 H (7-18) mg/dl BUN (7-18) mg/dl Creatinine (0.6-1.4) mg/dl POC Creatinine 4.1 H (0.6-1.3) mg/dl Est Cr Clr Drug Dosing ml/min Est GFR ( Amer) Est GFR (Non-Af Amer) BUN/Creatinine Ratio (10-20) Glucose (70-99) mg/dl POC Glucose (other) 158 H (70-99) mg/dl Calcium (8.5-10.1) mg/dl POC Ioniz Calcium Sofia 1.16 (1.12-1.32) mmol/l Magnesium (1.8-2.4) mg/dl Total Bilirubin (0.2-1) mg/dl AST (15-37) U/L ALT (12-78) U/L Alkaline Phosphatase (45-117) U/L Ammonia (11-32) umol/L Troponin I (0-0.045) ng/ml Total Protein (6.4-8.2) gm/dl Albumin (3.4-5.0) gm/dl Globulin (2.5-4.0) gm/dl Albumin/Globulin Ratio (0.9-2) Urine Color Urine Appearance (Clear) Urine pH (4.5-7.5) Ur Specific [place] (1.000-1.030) Urine Protein (Negative) Urine Glucose (UA) (Negative) Urine Ketones (Negative) Urine Blood (Negative) Urine Nitrite (Negative) Urine Bilirubin (Negative) Urine Urobilinogen (Negative) Ur Leukocyte Esterase (Negative) Urine WBC (Auto) (0-5) /hpf Urine RBC (Auto) (0-4) /hpf U Hyaline Cast (Auto) (0-5) /lpf U Epithel Cells (Auto) (0-5) /lpf Urine Bacteria (Auto) (Negative) SARS-CoV-2 Ag (Rapid) Negative (Negative) Blood Type Antibody Screen Imaging Data Radiologist's Impression: SINGLE VIEW CHEST CLINICAL HISTORY: Dyspnea. Edema. FINDINGS: An AP, portable, upright chest radiograph is compared to study dated 06/28/2020. The heart appears enlarged. There is prominence of the pulmonary vasculature. No airspace consolidation, large pleural effusion, or pneumothorax is identified. The skeletal structures appear osteopenic. The bony thorax is grossly intact. IMPRESSION: The heart appears enlarged and there is prominence of the pulmonary vasculature. Correlate clinically for evidence of mild congestive failure. ACT 112: Negative or not required by law. Electronically signed by: Juan Antonio Gibbs M.D. 07/21/2020 11:31 AM MDM Narrative Patient was seen and evaluated as above in room C5. Review was performed of nursing notes and vital signs. I did review pertinent previous visits and patient history. After obtaining a thorough history and physical examination the above work up was performed. Patient presents to us today with an extensive past medical history now with bilateral lower extremity edema to involve the scrotum. He also feels short of breath when he lies flat. This is new for him. He is nontoxic on examination has stable vital signs. When asked what his wishes are he notes that he would like to see his daughter before he passes away. The patient does appear to be alert and oriented. IV access was e stablished. Labs were drawn. No leukocytosis. Anemia noted. INR 1.3. Patient's potassium is elevated at 6.2. Creatinine is elevated at 3.78. Urinalysis does not suggest infection. Type and screen initiated. Covid testing negative. Chest x-ray does show enlargement of the heart and prominence of the pulmonary vasculature. The edema is likely secondary to the patient's underlying chronic comorbidities. I did discuss this with the [facility]. It was felt that further evaluation here would be reasonable. It does appear that the patient would like more than just comfort measures at this point. I discussed this with the hospitalist. I was then asked to consider transfer and discussed this with [facility]. I was also asked by the medicine team here to begin medicinal correction of the potassium. In speaking with them, secondary to high volume and acuity with COVID-19 they likely would not have a bed available until tomorrow. It was recommended to discuss this with our in-house metallurgist process to see if they would be able to see what options would be available here. I discussed this with of nephrology. We reviewed the case. Lasix was recommended, as well as utilizing insulin and dextrose to help decrease potassium. It is not felt that emergent dialysis is needed. I discussed this with the hospitalist team. Please refer to further documentation regarding his stay. Case was discussed with the attending physician. EKG was reviewed by myself and found to be Normal Sinus Rhythm at a rate of 70 beats per minute and per my interpretation reveals normal sinus rhythm with QTC at 477. No ST elevation. An order was placed for continuous cardiac monitoring. The monitor shows a rate of 70 with sinus rhythm. GCS: 15 In the evaluation and treatment of this patient the following differential diagnoses were entertained: Renal failure, liver failure, hepatorenal syndrome, infection, sepsis, LA, PE, CHF, Covid, among others. Impression & Plan Acute on chronic kidney failure, Bilateral edema of lower extremity, Acute hyperkalemia Discharge Plan Visit Data Chief Complaint: Shortness of Breath/Dyspnea Stated Complaint: SOB ED Provider: [facility] ED Midlevel Provider: Sarwat Monroy Discharge Problem: Acute on chronic kidney failure, Bilateral edema of lower extremity, Acute hyperkalemia Patient Disposition: Admitted As Inpatient Condition: Fair Discharge Instructions Interventions: ED Discharge Assessment Last Done: 07/21/20 18:34 Forms Stand Alone Forms: [facility], [facility] Emergency Department, [facility] Visit Information Prescriptions Prescriptions: No Action acetaminophen [Tylenol] 325 mg Tablet 650 mg PO Q8H PRN (Reason: Pain) RF: 0 Novolin R Flexpen 100 unit/mL (3 mL) Insulin Pen 0 unit SUBCUT .SLIDINGSCALE PRN (Reason: See rx directions) RF: 0 lactulose 10 gram/15 mL Solution 20 g PO TID PRN (Reason: Constipation) RF: 0 Novolin 70-30 FlexPen U-100 100 unit/mL (70-30) Insulin Pen 30 unit SUBCUT QAM RF: 0 Xifaxan 550 mg Tablet 550 mg PO BID RF: 0 spironolactone 25 mg Tablet 25 mg PO BID RF: 0 nadolol 40 mg Tablet 40 mg PO BID RF: 0 morphine 10 mg Capsule,Extend.Release Pellets 10 mg PO QAM RF: 0 Referrals Referrals: Irais POE [Primary Care Provider] -
--- NOTE | 2020-07-21 11:32 | XRay Report ---
SINGLE VIEW CHEST CLINICAL HISTORY: Dyspnea. Edema. FINDINGS: An AP, portable, upright chest radiograph is compared to study dated 06/28/2020. The heart a ppears enlarged. There is prominence of the pulmonary vasculature. No airspace consolidation, large p leural effusion, or pneumothorax is identified. The skeletal structures appear osteopenic. The bony t horax is grossly intact. IMPRESSION: The heart appears enlarged and there is prominence of the pulmonary vasculature. Correlat e clinically for evidence of mild congestive failure. ACT 112: Negative or not required by law. Electronically signed by: Juan Antonio Gibbs M.D. 07/21/2020 11:31 AM
--- NOTE | 2020-07-21 12:36 | Emergency Department Note ---
ED Visit Note I have seen and examined this patient in conjunction with Sarwat Monroy. Patient was a DNR when left [facility] however upon my conversation with the [place] nurse the patient was never made a DNR upon return to [place]. After discussing patient's case with the patient patient states he wishes to live long enough to see his daughter again. The case was discussed with the hospitalist service who agreed admit the patient. .
[2020-07-21 13:08] LABS: Albumin Globulin Ratio 0.4 (0.9-2); Albumin Level 1.9 gm/dl (3.4-5.0); BUN Creatinine Ratio 18.6 (10-20); Bilirubin,Total 0.9 mg/dl (0.2-1); Calcium 8.1 mg/dl (8.5-10.1); Creatinine Clr Calc Pharmacy 23.4 ml/min; Est GFR (African American) 18.1; Est GFR (Non-African American) 15.6; Globulin 5.3 gm/dl (2.5-4.0); Magnesium 2.3 mg/dl (1.8-2.4); Potassium 6.2 mmol/L (3.5-5.1); Total Protein 7.2 gm/dl (6.4-8.2); Troponin I 0.024 ng/ml (0-0.045)
[2020-07-21 13:12] LABS: Basophils # (auto) 0.01 K/uL (0-0.2); Basophils % (auto) 0.2 %; Eosinophils # (auto) 0.11 K/uL (0-0.5); Eosinophils % (auto) 1.9 %; Hematocrit (blood only) 25.1 % (42-52); Hemoglobin 8.2 g/dL (14.0-18.0); Lymphocytes # (auto) 0.89 K/uL (1.2-3.4); Lymphocytes % (auto) 15.4 %; Mean Corpuscular Hgb Conc 32.7 g/dL (32-36); Mean Platelet Volume 10.8 fL (7.4-10.4); Monocytes # (auto) 0.83 K/uL (0.11-0.59); Monocytes % (auto) 14.4 %; Neutrophils # (auto) 3.94 K/uL (1.4-6.5); Neutrophils % (auto) 68.1 %; Platelet Count 135 K/uL (130-400); RDW Coefficient of Variation 15.4 % (11.5-14.5); RDW Standard Deviation 54.9 fL (36.4-46.3); Red Blood Count 2.56 M/uL (4.7-6.1); White Blood Count 5.78 K/uL (4.8-10.8)
[2020-07-21 13:23] LABS: INR 1.3 (0.9-1.1); Partial Thromboplastin Ratio 1.2; Partial Thromboplastin Time 33.2 Seconds (21.0-31.0); Prothrombin Time 13.5 Seconds (9.0-12.0)
[2020-07-21 13:40] LABS: Appearance Urine Clear (Clear); Bacteria Urine Automated Negative (Negative); Bilirubin Urine Negative (Negative); Blood Urine 1+ (Negative); Color Urine Yellow; Glucose Urine UA Trace (Negative); Ketones Urine Trace (Negative); Leukocyte Esterase Urine Negative (Negative); Nitrite Urine Negative (Negative); Protein Urine 3+ (Negative); RBC Urine Automated 0-4 /hpf (0-4); Specific Gravity Urine 1.019 (1.000-1.030); Urobilinogen Urine Negative (Negative)
[2020-07-21] MEDS ORDERED: SODIUM CHLORIDE 0.9% 500 ML IV SCH (14:00)
[2020-07-21] MEDS ORDERED: ALBUTEROL 0.083% NEBU SOLN 3 ML VIAL NEB STA (16:32)
[2020-07-21] MEDS ORDERED: CALCIUM GLUCONATE 10% 10 ML VIAL IV STA (16:32)
[2020-07-21] MEDS ORDERED: DEXTROSE 50% 50 ML SYRINGE IV ONE (16:32)
[2020-07-21] MEDS ORDERED: FUROSEMIDE 40 MG/4 ML VIAL IV STA (16:32)
[2020-07-21] MEDS ORDERED: STAT IV STA (16:32)
[2020-07-21] MEDS ORDERED: NovoLIN-R INSULIN PER UNIT CHARGE IV STA (16:32)
[2020-07-21] MEDS ORDERED: SODIUM BICARBONATE 8.4% 150 MEQ in DEXTROSE 5% 1,000 ML IV SCH (16:45)
[2020-07-21] MEDS ORDERED: CALCIUM GLUCONATE 10% 2,000 MG in SODIUM CHLORIDE 0.9% 50 ML IV STA (17:18)
[2020-07-21 17:28] LABS: iSTAT Creatinine 4.1 mg/dl (0.6-1.3); iSTAT Hemoglobin 8.2 g/dl (14.0-18.0); iSTAT Ionized Calcium 1.16 mmol/l (1.12-1.32); iSTAT Potassium 5.9 mmol/L (3.3-5.0)
[2020-07-21 17:36] LABS: BUN Creatinine Ratio 18.9 (10-20); Calcium 8.2 mg/dl (8.5-10.1); Creatinine Clr Calc Pharmacy 22.8 ml/min; Est GFR (African American) 17.6; Est GFR (Non-African American) 15.2; Potassium 5.9 mmol/L (3.5-5.1)
--- NOTE | 2020-07-21 18:06 | History & Physical Report ---
Date of Service July 21, 2020 Assessment & Plan (1) Hyperkalemia: Admit telemetry Given 80 mg furosemide in the ED, dextrose 50 mls and regular insulin 10 units - Potassium 5.9 on recheck in ED. Prp q4h Veltessa 8.4 mg per nephrology rec (2) CKD (chronic kidney disease), stage IV: Baseline creatinine is 4-4.5 with GFR 13 at last discharge - today creat 3.88 with GFR 17.6. Per previous nephrology notes from last admission in May, patient would be a poor dialysis candidate due to recurrent hepatic encephalopathy and ability to comply with medical treatments and dialysis. If encephalopathy cannot be reliably corrected, dialysis will not provide him with quality of life and should not be pursued. Patient has nephrotic range proteinuria Anion gap 15 Discussed case with nephrology and they will see him tomorrow Palliative care consult (3) Metabolic acidosis: Bicarb po 650 mg bid Bicarb currently 18 prp q4h (4) Esophageal varices without bleeding: Continue nadolol (5) Type 2 diabetes mellitus: pharmacy glycemic consult (6) Liver cirrhosis: History of Hep C treated with Epclusa History of frequent hyperammonemia and non compliance with lactulose. Per [facility], patient has been more compliant lately and in the ED today, ammonia was 29 Previously seen by Stephanie DICKINSON during May admission. They had recommended transfer to tertiary care at that point due to worsening kidney and liver function however patient was not transferred as it was not felt he'd be a good dialysis candidate. With his improvement in mentation this visit, Debi Iyer was called by the ED for transfer but they felt he could be cared for here and if not we should reach out again. (7) DVT prophylaxis: heparin subq History of Present Illness Primary Care Provider: DEEPIKA Braxton Mr. Moreira presents today from [facility] due to fluid overload. He had previously been discharged on comfort care to the [place] [facility] on 06/20. He has been more compliant with his lacutulose regimen and is mentating well enough to request further treatment rather than comfort care. He presents due to significant fluid overload and feeling he is having a difficult time speaking. He is somewhat short of breath, no chest pain, no aches, chills, fever, n/v/d/, no dysuria though he is incontinent due to significant swelling in his penis and scrotum. Allergies Allergy/AdvReac Type Severity Reaction Status Date / Time No Known Drug Allergies Allergy NKDA Unverified 07/21/20 10:59 Home Medications Medication Instructions Recorded Confirmed Type acetaminophen [Tylenol] 650 mg PO Q8H PRN 06/28/20 07/21/20 History insulin NPH and regular human 30 unit SUBCUT QAM 06/28/20 07/21/20 History [Novolin 70-30 FlexPen U-100] insulin regular human [Novolin R 0 unit SUBCUT .SLIDINGSCALE PRN 06/28/20 07/21/20 History Flexpen] lactulose 20 g PO TID PRN 06/28/20 07/21/20 History rifaximin [Xifaxan] 550 mg PO BID 06/28/20 07/21/20 History morphine 10 mg PO QAM 07/21/20 07/21/20 History nadolol 40 mg PO BID 07/21/20 07/21/20 History spironolactone 25 mg PO BID 07/21/20 07/21/20 History Past Med/Surg History Medical History (Updated 07/22/20 @ 09:18 by NERI Villar) Acute hepatic encephalopathy Acute kidney injury Allergic rhinitis Anemia, unspecified Chronic kidney disease, unspecified Confusion Esophageal varices without bleeding Flatulence GERD (gastroesophageal reflux disease) HCV (hepatitis C virus) Treated Hyperlipidemia Hypertension Liver cirrhosis Low back pain Metabolic acidosis Microscopic hematuria Onychomycosis Palliative care encounter Partial small bowel obstruction Proteinuria Pruritus, unspecified Type 2 diabetes mellitus Umbilical hernia without obstruction or gangrene Social History Smoking Status: Never smoker Hx Alcohol Use: No Hx Substance Use: No Preferred Language: Malian Communication Ability: Effective Corporate Travel Counselor Required: No Beliefs That Will Affect Care: None Current Living Situation: Other Current Living Situation Comment: [facility] Other Information That Helps Us Care for You: No Feels Safe at Home: Yes Safety Concerns: Feels Safe At This Time Assistive Devices: None Review of Systems Review of Systems: All systems reviewed & are unremarkable except as noted in HPI & below Physical Exam Physical Exam: General: no distress Eyes: normal inspection, PERLL Respiratory: chest non tender, clear to auscultation, normal breath sounds, no respiratory distress, no accessory muscle use Cardiac: regular rate and rhythm, no rub or gallop, no murmur, +1 pitting generalized edema GI/: active bowel sounds, no abd pain or tenderness, soft, non distended Extremities: normal range of motion, normal strength, non tender Neuro/Psych: alert and oriented x 3, garbled speech, normal mood and affect Skin: normal color, dry Results & Data Results & Data ([facility]) Vital Signs (Past 12 Hours) Vital Signs Temp Pulse Pulse Resp BP BP Pulse Ox 07/21/20 17:34 73 21 153/91 H 96 07/21/20 17:10 17 97 07/21/20 16:10 71 20 152/66 H 98 07/21/20 14:02 70 18 141/65 H 95 07/21/20 13:31 71 19 151/73 H 95 07/21/20 13:05 72 20 176/101 H 96 07/21/20 12:28 89 25 H 176/101 H 100 07/21/20 11:05 95 07/21/20 10:28 36.7 C 68 17 173/81 H 100 Supervising Physician Co-Signing Physician Notes I personally saw and examined the patient. I verified all avelar points and agree with JODIE Yun with the following exceptions and/or additions: 65 year old with liver cirrhosis and CKD discharged previously on comfort care as he was refusing lactulose with very high ammonia levels and altered mental status On discharge to the [place] [facility] appartently his lactulose was reordered and he started taking this again and no knowledge of further discussion of resuscitation status took place. Per RN @ [facility] he is for full resuscitation. The patient currently wants everything possible done including resuscitation but really lacks capacity (unable to tell me anything about his chronic medical conditions). I did discuss with his brother Tramaine but he was also unable to give me any details on Chicho's chronic illnesses and am also concerned about his decision making capacity. Therefore will actively treat as full resuscitation overnight and involve palliative care in AM. O/E 3+ generalized edema or arms, abdomen and leg. A/P Advanced liver cirrhosis and CKD - palliative care, continue lactulose/nadolol. Hyperkalemia - EKG unremarkable. stop spironolactone (unfortunately he did receive one dose prior to me stopping this). Hyperkalemia should improve with stopping spironolactone and lasix use alone but agree to start valtessa in addition. Consult nephrology Hypervolemia secondary to CKD - Lasix 80mg IV given in ER. Will continue 40mg IV BID Otherwise as above PG Care Time/CCT Total # of Minutes Spent Total Time Spent with Patient: Total time spent is greater than 50% in coordination of care (as documented) at patient's floor/unit and/or counseling patient: Coding Level of Care Code 30085 Initial Inpt Care Lvl 3 Diagnoses Hyperkalemia E87.5 CKD (chronic kidney disease), stage IV N18.4 Metabolic acidosis E87.2 Esophageal varices without bleeding I85.00 Type 2 diabetes mellitus E11.9 Liver cirrhosis K74.60 Ascites presence: without ascites Hepatic cirrhosis type: unspecified hepatic cirrhosis DVT prophylaxis Z29.9 (1) Liver cirrhosis Ascites presence: without ascites Hepatic cirrhosis type: unspecified hepatic cirrhosis Qualified Code(s): K74.60 - Unspecified cirrhosis of liver
--- NOTE | 2020-07-21 18:22 | Electrocardiogram Report ---
Test Reason : Blood Pressure : / mmHG Vent. Rate : 070 BPM Atrial Rate : 070 BPM P-R Int : 118 ms QRS Dur : 078 ms QT Int : 442 ms P-R-T Axes : 041 025 032 degrees QTc Int : 477 ms Normal sinus rhythm Low voltage QRS Borderline ECG When compared with ECG of 28-JUN-2020 08:36, Vent. rate has decreased BY [address] abnormality no longer present Confirmed by Russell Acosta ([id number]) on 07/21/2020 6:22:23 PM Referred By: [facility] Confirmed By:Russell Acosta
--- NOTE | 2020-07-21 18:35 | Emergency Department Note ---
ED Visit Note Impression: Acute renal failure As discussed your potassium was somewhat elevated at greater than 5. Please call your primary care physician's office tomorrow for repeat blood work including kidney function and a potassium within the next 1-2 weeks. Please avoid foods or supplements with potassium including potatoes and bananas. Please avoid any NSAIDs until after speaking with your primary care physician. I was involved in the patient's care and was notified by the physician's housing assistant property manager Sarwat Monroy PA-C. The patient does have a known history of liver and renal issues and there was initially thought the patient was deemed for palliative care but the patient did want things like dialysis and treatment completed. Patient was noted to be hyperkalemic at greater than 6.2. Patient was ordered repeat [id number] and lab BMPs to check for potassium. The patient was ordered for albuterol, calcium, insulin and dextrose. Will order to bicarb drip. Patient was also ordered 80 of Lasix. Mr. Monroy did call the transfer center and unfortunately was bed locked and unable to take the patient until tomorrow. He subsequently did speak with [facility] nephrology Dr. Chin who recommended what had already been ordered. Patient subsequently was admitted by Dr. Asif. EKG Sinus rhythm with short CO, rate of 71, normal QRS, prolonged QT, normal axis, no ST changes or T WI. Critical Care: I have personally spent 46 minutes of critical care time in direct management of this patient. This includes bedside care, interpretation of diagnostic studies, and testing, discussion with consultants, patient, and family members, and other require inpatient management activities. This 46 minutes is in excess of all separately billable procedures. .
[2020-07-21] MEDS ORDERED: ACETAMINOPHEN 325 MG TAB PO PRN (20:15)
[2020-07-21] MEDS ORDERED: NON-FORMULARY MEDICATION (Insulin Regular Human [Novolin R Flexpen] 100 unit/mL (3 mL) Ins SQ PRN (20:15)
[2020-07-21] MEDS ORDERED: LACTULOSE PO PRN (20:15)
[2020-07-21] MEDS ORDERED: LACTULOSE SYRUP 20 GM/30 ML UDC PO PRN (20:20)
[2020-07-21] MEDS ORDERED: PHARMACY GLYCEMIC MGMT CONSULT PRN (20:28)
[2020-07-21] MEDS ORDERED: GLUCAGON FOR INJ 1 MG VIAL IM PRN (20:45)
[2020-07-21] MEDS ORDERED: GLUCOSE 10 TABS/TUBE PO PRN (20:45)
[2020-07-21] MEDS ORDERED: CARBOHYDRATES FOR HYPOGLYCEMIA PO PRN (20:45)
[2020-07-21] MEDS ORDERED: DEXTROSE 50% 50 ML SYRINGE IV PRN (20:45)
[2020-07-21] MEDS ORDERED: GLUCOSE 40% GEL 15 GM TUBE PO PRN (20:45)
[2020-07-21] MEDS: INSULIN ASPART 100 UNITS/ML 3 ML PEN SC SCH (20:54)
[2020-07-21] MEDS: LACTULOSE SYRUP 20 GM/30 ML UDC PO SCH (20:57)
[2020-07-21] MEDS: SODIUM BICARBONATE 650 MG TAB PO SCH (20:58)
[2020-07-21] MEDS: HEPARIN SOD 5,000 UNIT/0.5 ML VIAL SQ SCH (20:58)
[2020-07-21] MEDS: rifAXIMin 550 MG TABLET PO SCH (20:58)
[2020-07-21] MEDS: nadoloL 40 MG TAB PO SCH (20:58)
[2020-07-21] MEDS ORDERED: SPIRONOLACTONE 25 MG TAB PO SCH (21:00)
[2020-07-21 21:43] LABS: BUN Creatinine Ratio 18.4 (10-20); Calcium 8.8 mg/dl (8.5-10.1); Creatinine Clr Calc Pharmacy 22.3 ml/min; Est GFR (African American) 17.6; Est GFR (Non-African American) 15.2; Potassium 5.6 mmol/L (3.5-5.1)
[2020-07-22 01:02] LABS: BUN Creatinine Ratio 18.9 (10-20); Calcium 8.2 mg/dl (8.5-10.1); Creatinine Clr Calc Pharmacy 22.7 ml/min; Est GFR (Non-African American) 15.5; Potassium 5.8 mmol/L (3.5-5.1)
[2020-07-22 04:41] LABS: Hematocrit (blood only) 24.6 % (42-52); Mean Corpuscular Hemoglobin 31.7 pg (25-34); Mean Corpuscular Hgb Conc 32.5 g/dL (32-36); Mean Corpuscular Volume 97.6 fL (80-100); Platelet Count 141 K/uL (130-400); RDW Coefficient of Variation 15.4 % (11.5-14.5); RDW Standard Deviation 53.9 fL (36.4-46.3); Red Blood Count 2.52 M/uL (4.7-6.1); White Blood Count 5.74 K/uL (4.8-10.8)
[2020-07-22 04:59] LABS: BUN Creatinine Ratio 18.8 (10-20); Calcium 8.1 mg/dl (8.5-10.1); Creatinine Clr Calc Pharmacy 22.5 ml/min; Est GFR (African American) 17.8; Est GFR (Non-African American) 15.4; Potassium 5.6 mmol/L (3.5-5.1)
[2020-07-22 06:48] LABS: Estimated Average Glucose 108 mg/dl; Hemoglobin A1C 5.4 % (4.5-5.6)
[2020-07-22] MEDS: nadoloL 40 MG TAB PO SCH ×2 (07:35→21:22)
[2020-07-22] MEDS: SODIUM BICARBONATE 650 MG TAB PO SCH ×2 (07:35→21:24)
[2020-07-22] MEDS: rifAXIMin 550 MG TABLET PO SCH ×2 (07:35→21:25)
[2020-07-22] MEDS: LACTULOSE SYRUP 20 GM/30 ML UDC PO SCH ×2 (07:35→21:22)
[2020-07-22] MEDS: HEPARIN SOD 5,000 UNIT/0.5 ML VIAL SQ SCH ×2 (07:37→21:23)
[2020-07-22] MEDS: PATIROMER CALCIUM SORBITEX 8.4 GM PACK PO SCH (07:39)
[2020-07-22] MEDS ORDERED: NovoLIN-N (NPH) PER UNIT CHARGE SQ SCH (08:00)
[2020-07-22] MEDS: INSULIN ASPART 100 UNITS/ML 3 ML PEN SC SCH ×4 (08:22→21:26)
[2020-07-22] MEDS: MoRPHine SULFATE CR 15 MG TABCR PO SCH (08:22)
[2020-07-22] MEDS ORDERED: FUROSEMIDE 40 MG in SYRINGE 0 ML IV SCH (09:00)
--- NOTE | 2020-07-22 09:19 | Palliative Care Consultation ---
Date of Consultation July 22, 2020 Assessment & Plan (1) Palliative care encounter: This is a 65 year old male, a permanent resident at [facility], who presented to the [facility] with fluid overload. This patient has Stage IV Chronic Kidney Disease and liver cirrhosis secondary to Hepatitis C. The patient has had a recent inpatient hospitalization in early April. In April he was transferred to [facility] for further work up as they were considering pursuing hemodialysis. He was stabilized and his hepatic encephalopathy improved with Lactulose. An additional hospitalization occurred May 24 - 2019 with similar symptoms. During that admission he was diagnosed with acute hepatic encephalopathy. Upon discharge, it was noted that he was refusing medications, including his Lactulose on multiple occasions over the past few weeks. The patient has a high MELD score of 23. He most recently was discharged on June 20 on comfort measures. This admission, he was admitted for volume overload with extensive scrotal and penile anasarca. Palliative Care was consulted to assist with discussion regarding goals of care/ethical consideration with this patient as an inmate with a chronic illness and poor prognosis. -I met with the patient in room 107. He is telemetry status. One border guard was present. -The patient did look at me when I approached him and was able to tell me his name and birthday; however, with garbled speech, which appears to be his baseline from previous admissions. He was also able to verbalize his brothers name, Tramaine. He was unable to tell me why he was in the hospital and furthermore could not provide details regarding his chronic illness. -We did discuss his code status and when I talked with him about CPR, he seemed to understand what I was explaining and said "try it and if it works, great, if it does'nt, that's ok'. I am not sure if he understands the complexity of his illness. -We have received contact information of Tramaine Moreira . I did reach out to him; I did not leave a voicemail because it was a generic voicemail. -Ultimately, this individual is more awake than in historic visits. The big question here is how aggressive does the patient want to be. When focusing on quality of life, need to consider whether or not short term hemodialysis would benefit this individual to promote a better overall quality of life. Pt creatinine is 3.88 and K+ is 5.6. -While short term dialysis may help, we do need to consider the underlying chronic illness that is not curable at this time. -Would be curious what Nephrology input would be. Of course, this individual would qualify for hospice services, but can also support dialysis if this does indeed help with his overall quality of life. -Moving forward, with regards to aggressive treatment measures, including hemodialysis, documentation from a two physicians, presumably one being a Commercial Administrator, would be helpful in elaboration of the futile state and poor quality of life associated with treatment, if he would become obtunded and not able to make medical decisions. Historically, his brother did support the patient being a DNR/DNI. -For now, as we were able to have a conversation with him indicating that he would want CPR, will keep him a full code for now and monitor how this patient progresses over the next few days. We will continue to reach out to family as well. -PPS: 30% (2) CKD (chronic kidney disease), stage IV: creatinine 3.88 await input from Nephrology regarding pursuing short term hemodialysis (3) Liver cirrhosis: Ascites presence: without ascites Hepatic cirrhosis type: unspecified hepatic cirrhosis Qualified Code(s): K74.60 - Unspecified cirrhosis of liver (4) Confusion: waces and wanes been compliant with meds at [facility] History of Present Illness Reason for Consultation: Goals of care Requesting Physician: Jaci HE Attending Physician: Maximo Perez DO History of Present Illness This is a 65 year old male, a permanent resident at [facility], who presented to the [facility] with fluid overload. This patient has Stage IV Chronic Kidney Disease and liver cirrhosis secondary to Hepatitis C. The patient has had a recent inpatient hospitalization in early April. In April he was transferred to [facility] for further work up as they were considering pursuing hemodialysis. He was stabilized and his hepatic encephalopathy improved with Lactulose. An additional hospitalization occurred May 24 - 2019 with similar symptoms. During that admission he was diagnosed with acute hepatic encephalopathy. Upon discharge, it was noted that he was refusing medications, including his Lactulose on multiple occasions over the past few weeks. The patient has a high MELD score of 23. He most recently was discharged on June 20 on comfort measures. This admission, he was admitted for volume overload with extensive scrotal and penile anasarca. Palliative Care was consulted to assist with discussion regarding goals of care/ethical consideration with this patient as an inmate with a chronic illness and poor prognosis. Thank you for re-involving Palliative Care with this individual. Allergies Allergy/AdvReac Type Severity Reaction Status Date / Time No Known Drug Allergies Allergy NKDA Unverified 07/21/20 10:59 Home Medications Medication Instructions Recorded Confirmed Type acetaminophen [Tylenol] 650 mg PO Q8H PRN 06/28/20 07/21/20 History insulin NPH and regular human 30 unit SUBCUT QAM 06/28/20 07/21/20 History [Novolin 70-30 FlexPen U-100] insulin regular human [Novolin R 0 unit SUBCUT .SLIDINGSCALE PRN 06/28/20 07/21/20 History Flexpen] lactulose 20 g PO TID PRN 06/28/20 07/21/20 History rifaximin [Xifaxan] 550 mg PO BID 06/28/20 07/21/20 History morphine 10 mg PO QAM 07/21/20 07/21/20 History nadolol 40 mg PO BID 07/21/20 07/21/20 History spironolactone 25 mg PO BID 07/21/20 07/21/20 History Patient History Medical History (Updated 07/22/20 @ 09:18 by NERI Villar) Acute hepatic encephalopathy Acute kidney injury Allergic rhinitis Anemia, unspecified Chronic kidney disease, unspecified Confusion Esophageal varices without bleeding Flatulence GERD (gastroesophageal reflux disease) HCV (hepatitis C virus) Treated Hyperlipidemia Hypertension Liver cirrhosis Low back pain Metabolic acidosis Microscopic hematuria Onychomycosis Palliative care encounter Partial small bowel obstruction Proteinuria Pruritus, unspecified Type 2 diabetes mellitus Umbilical hernia without obstruction or gangrene Social History Smoking Status: Never smoker Hx Alcohol Use: No Hx Substance Use: No Preferred Language: Pakistani Communication Ability: Effective Breaker Unit Assembler Required: No Beliefs That Will Affect Care: None Current Living Situation: Other Current Living Situation Comment: [facility] Other Information That Helps Us Care for You: No Feels Safe at Home: Yes Safety Concerns: Feels Safe At This Time Assistive Devices: None Physical Exam Constitutional: + ill appearing, + frail appearing, + disheveled and cooperative Respiratory: normal respiratory effort Auscultation: + diminished lung sounds and + crackles Cardiovascular: Heart Sounds: normal S1 and normal S2 Vessels: dorsalis pedis pulses present and radial pulses present Extremities: + edema Gastrointestinal (Abdomen): normal bowel sounds, soft, nontender, no hepatosplenomegaly Inspection/Auscultation: + abdomen distended and + abdominal edema Percussion/Palpation: abdomen soft Psychiatric: Apperance: + disheveled Affect: + flat affect Insight: + limited insight Judgement: + limited judgement Genitourinary: + penile swelling and + scrotal swelling Results & Data ([facility]) Vital Signs (Past 12 Hours) Vital Signs Temp Pulse Pulse Resp BP BP Pulse Ox 07/22/20 08:39 72 17 180/78 H 99 07/22/20 08:00 36.8 C 72 15 98 07/22/20 07:00 72 21 98 07/22/20 04:06 36.7 C 70 18 140/63 99 07/21/20 23:26 36.7 C 69 19 173/94 H 99 PG Care Time/CCT Total # of Minutes Spent Total Time Spent with Patient: Total time spent is greater than 50% in coordination of care (as documented) at patient's floor/unit and/or counseling patient: 70 Coding Level of Care Code 07948 Inpt Consult Level 3 Diagnoses Palliative care encounter Z51.5 CKD (chronic kidney disease), stage IV N18.4 Liver cirrhosis K74.60 Ascites presence: without ascites Hepatic cirrhosis type: unspecified hepatic cirrhosis Confusion R41.0 Time Spent (min) 70 Time Spent Midlevel Total time spent 70 minutes with > 50% of that time spent assessing the patient, discussing goals of care and discussing with IDT
--- NOTE | 2020-07-22 09:33 | Hospitalist Progress Note ---
Date of Service July 22, 2020 Assessment & Plan (1) Liver cirrhosis: Mr. Moreira is a 65 yo M prisoner with a PMHx of liver cirrhosis and Stage IV CKD who was admitted for volume overload, thought to be exacerbation of hepatorenal syndrome. Patient was recently admitted to [facility] for the same pathophysiology in May and was discharged back to prisoner on comfort care. He returned with request for further intervention. Nephrology was consulted and feels as though patient is a poor candidate for dialysis therapy. Patient was started on IV albumin and IV lasix. Palliative consulted. Liver cirrhosis: - secondary to previous Hep C infection, treated with Epclusa - History of frequent hyperammonemia and non-adherence with lactulose. - Per [facility], patient has been more adherent lately, ammonia level normal on admission - Previously seen by Stephanie DICKINSON during May admission. They had recommended transfer to tertiary care due to worsening kidney and liver function, however patient was not transferred due to being a poor dialysis candidate. - With his improvement in mentation this visit, Debi Iyer was called by the ED for transfer -- > recommend continued care at our facility - MELD score 22, which carries a 20% 3 month mortality rate - continue home rifampin CKD (chronic kidney disease), stage IV: - Baseline creatinine is 4-4.5 with GFR 13 at last discharge - creat 3.88 on admission with GFR 17.6. - patient has been deemed a poor dialysis candidate in the past due to recurrent hepatic encephalopathy and inability to adhere with medical treatments - nephrology consulted, again recommending no dialysis despite improved mentation Hyperkalemia: - K 5.9 on admission, down to 5.6 - EKG without changes - given 80mg lasix, 10 units of regular insulin in ED - continue Veltassa per nephrology - trend BMP Metabolic acidosis: - Bicarb low at 18 - continue NaBicarb po 650 mg bid per nephrology - trend BMP 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 - Continue nadolol Type 2 diabetes mellitus: - pharmacy glycemic consult - cause of nephropathy - A1c 5.4 on admission (however unclear if this is altered due to acute liver failure) Dispo: PCU Diet: low Na, low K, fluid restrict 1200ml DVT ppx: heparin Code: Full Admission and Anticipated Discharge Date Admission Date: July 21, 2020 Supervising Physician Co-Signing Physician Notes Patient seen and examined with PGY-2 Dr. Adames and PGY-3 Dr. Olea. Agree with history, exam findings, assessment and plan of care as outlined with the following updates/changes: In brief, Mr. Moreira is a 65 year old male with history of CKD, cirrhosis with hepatic encephalopathy, and DM admitted with hyperkalemia and generalized anasarca. Denies chest pain, palpitations, shortness of breath today. Does endorse some generalized abdominal pain. Vital signs and nursing notes reviewed. On exam, he has pitting edema to the hips and pitting edema over the abdominal wall. +reducible but tender umbilical hernia. Generalized abdominal tenderness. +pitting edema over the hands and forearms bilaterally. Labs and imaging reviewed. 1. hyperkalemia. improving. continue tele. Continue veltessa 8.4mg daily. 2. CKD stage IV with metabolic acidosis. eGFR 17. Appreciate nephrology recommendations. Continue with bicarb. Poor dialysis candidate due to historical non-adherence with lactulose precipitating worsening hepatic encephalopathy. 3. cirrhosis (Secondary to hepatitis C s/p treatment), hepatic encephalopathy, esophageal varices. No bleeding. Clear sensorium today on exam. Continue home nadalol. Goal HR should be in the 60s. 4. Anasarca. Secondary to fluid overload from CKD and cirrhosis. Lasix 40mg IV q8h + albumin. Monitor I/O's. 5. DM. glycemic consult. Appreciate recommendations. 6. Anemia. chronic. baseline hgb 9-10 in the past. hgb 8.0 today. no signs of bleeding. If hemoglobin continues to downtrend, will initiate further work up. Appreciate palliative recommendations. At this point, Mr. Moreira does not wish to pursue comfort care. I am unsure if he would be able to be maintained on oral medications in terms of fluid and electrolyte balance. Dispo: pending clinical improvement. Subjective patient is conversant on exam today - he expresses a desire to be able to be with his family members. Review of Systems Review of Systems: All systems reviewed & are unremarkable except as noted in HPI & below Physical Exam Constitutional: + ill appearing and cooperative Eyes: + anicteric sclerae ENMT: external ear and nose normal, oropharynx normal Neck: normal visual inspection and trachea midline Respiratory: normal respiratory effort; no respiratory distress and no cough Cardiovascular: RRR, no murmur, no edema Heart Sounds: normal S1 and normal S2 Extremities: + pedal edema Gastrointestinal (Abdomen): Inspection/Auscultation: + abdomen distended, normal bowel sounds and + abdominal edema Percussion/Palpation: + abdomen tender (diffusely ) and abdomen soft; no guarding umbilical hernia Skin: no rashes, warm and dry Psychiatric: Orientation: alert and oriented x 3 Genitourinary: Finn catheter in place, draining yellow urine without visible blood clots Results & Data Results & Data ([facility]) Vital Signs (Past 12 Hours) Vital Signs Temp Pulse Pulse Resp BP BP Pulse Ox 07/22/20 08:39 72 17 180/78 H 99 07/22/20 08:00 36.8 C 72 15 98 07/22/20 07:00 72 21 98 07/22/20 04:06 36.7 C 70 18 140/63 99 07/21/20 23:26 36.7 C 69 19 173/94 H 99 Resident Activity Tracking Resident Involvement: Resident Care Provided Care Provided: Adult Hospital Medicine (1) Liver cirrhosis Ascites presence: without ascites Hepatic cirrhosis type: unspecified hepatic cirrhosis Qualified Code(s): K74.60 - Unspecified cirrhosis of liver
--- NOTE | 2020-07-22 11:00 | Electrocardiogram Report ---
Test Reason : Blood Pressure : / mmHG Vent. Rate : 071 BPM Atrial Rate : 071 BPM P-R Int : 100 ms QRS Dur : 080 ms QT Int : 400 ms P-R-T Axes : 016 019 -01 degrees QTc Int : 435 ms Sinus rhythm with short NM Low voltage QRS Abnormal ECG When compared with ECG of 21-JUL-2020 11:04, No significant change was found Confirmed by Benito Ahmadi ([id number]) on 07/22/2020 11:00:19 AM Referred By: Irais POE Confirmed By:Dominick Ahmadi
--- NOTE | 2020-07-22 11:11 | Electrocardiogram Report ---
Test Reason : Blood Pressure : / mmHG Vent. Rate : 070 BPM Atrial Rate : 070 BPM P-R Int : 100 ms QRS Dur : 080 ms QT Int : 400 ms P-R-T Axes : 036 024 016 degrees QTc Int : 432 ms Sinus rhythm Nonspecific T wave abnormality Abnormal ECG When compared with ECG of 21-JUL-2020 17:08, (unconfirmed) Nonspecific T wave abnormality, worse in Inferior leads Nonspecific T wave abnormality now evident in Lateral leads Confirmed by Benito Ahmadi ([id number]) on 07/22/2020 11:10:33 AM Referred By: Irais SCI Confirmed By:Dominick Ahmadi
--- NOTE | 2020-07-22 13:07 | Pharmacy Report ---
Pharmacy Glycemic Short Note 2 - Date of Service July 22, 2020 - Glycemic Short BSG Results (Last 24 hours): 07/21/20 07/21/20 07/21/20 12:08 17:05 17:14 Glucose 161 H 162 H POC Glucose POC Glucose (other) 158 H 07/21/20 07/21/20 07/22/20 20:31 21:16 00:32 Glucose 122 H 128 H POC Glucose 122 H POC Glucose (other) 07/22/20 07/22/20 07/22/20 04:23 07:28 11:12 Glucose 125 H POC Glucose 133 H 157 H POC Glucose (other) OUTPATIENT ANTIDIABETIC REGIMEN: * 70/30 30 units qAM + loose regular sliding scale * A1c 5.4% 07/22/20 ASSESSMENT: * Mr. Moreira has a complicated PMH including CKD and hep C. Patient's SCr elevated and patient admitted with hyperkalemia, fluid overload. Patient previously assessed by nephrology and thought to be a poor candidate for dialysis. Patient is currently incarcerated. * Outpatient A1c indicates good control with current regimen as long as patient not having frequency hypoglycemic episodes. * Patient has been well controlled on novolog with weight based stress of 2 parameters. Will continue for now. * Did give patient 10 units of NPH with breakfast equivalent ~half of home dose. Will re-eval need tomorrow morning. PLAN FOR INPATIENT GLYCEMIC CONTROL: * Hold outpatient oral diabetes medications * Basal insulin * NPH 10 units x 1 with breakfast * Bolus insulin * NovoLog per scale ACHS or Q6hrs while NPO * Goal Range: Low 110 mg/dL - High 140 mg/dL * Correction Factor: 20 mg/dL/unit * Nutritional / Prandial insulin per carb ratio of 1 unit per 7 grams CHO consumed PLAN FOR DISCHARGE: * Patient's a1c indicates good outpatient control and is at goal. Patient can likely resume outpatient regimen as long as patient not experiencing frequent hypoglycemic events.
[2020-07-22] MEDS: ALBUMIN 25% 12.5 GM/50 ML VIAL IV SCH ×4 (13:52→22:29)
[2020-07-22] MEDS: FUROSEMIDE 40 MG in SYRINGE 0 ML IV SCH ×2 (13:53→21:24)
[2020-07-22] MEDS ORDERED: ALBUMIN 25% 12.5 GM/50 ML VIAL IV SCH (14:30)
--- NOTE | 2020-07-22 15:38 | Nephrology Consultation ---
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 (DM > 10 years, + retinopathy) * Serology studies including PLA2, HIV, Hep B, C3/C4/CH50 have all been normal/negative * Poor dialysis candidate due to recurrent hepatic encephalopathy (2) Anasarca: * Albumin 1.9 due to both hepatic and renal disease * Will provide SPA 25g IV q8 hours * Start Furosemide 40 mg IV q8 hours (3) Hyperkalemia: * Diuretic therapy started as outlined above * Continue oral NaHCO3 to correct metabolic acidosis * Monitor PRP (4) Anemia: * Will check iron stores and provide SQ CECY * Had been on Retacrit as SCI (5) Liver cirrhosis: History of Present Illness Reason for Consultation: CKD/anasarca Attending Physician: Maximo Perez DO History of Present Illness Mr. Moreira is a 65 year old SCI inmate who is seen at the request of NERI Pierson for evaluation of CKD/anasarca. Medical records in the EMR were reviewed today and are summarized as follows: Mr. Moreira has hepatitis C associated cirrhosis. He has completed treatment w/ Epclusa. Unfortunately he has had repeated hospitalizations for hepatic encephalopathy due to medical nonadherence with lactulose and rifaximin therapy. Mr. Moreira medical history is also significant for DM > 10 years complicated by retinopathy, CKD w/ baseline Cr 3.5 - 4.0, and HTN. Previous Nephrology evaluation 05/12 revealed normal complement, SPEP negative for monoclonal band, negative HIV, Hepatitis B negative, negative PLA2r. He was transferred to [facility] for inaja kidney biopsy. The procedure was withheld due to his advanced renal impairment and negative serologic testing. Outpatient follow up was suggested. Mr. Moreira was last hospitalized 06/11 due to hepatic encephalopathy. Cr was stable at 4.0. Plan of care was discussed w/ hospitalist group, Gastroenterology and palliative care. Patient was not felt to be a liver transplant candidate due to his medical noncompliance. Preparation for dialysis was not pursued due to patients recurrent hepatic encephalopathy/impaired cognition. Palliative care arranged for comfort measures at the halfway system. Mr. Moreira now presents for evaluation of anasarca and genital edema. Allergies Allergy/AdvReac Type Severity Reaction Status Date / Time No Known Drug Allergies Allergy NKDA Unverified 07/21/20 10:59 Home Medications Medication Instructions Recorded Confirmed Type acetaminophen [Tylenol] 650 mg PO Q8H PRN 06/28/20 07/21/20 History insulin NPH and regular human 30 unit SUBCUT QAM 06/28/20 07/21/20 History [Novolin 70-30 FlexPen U-100] insulin regular human [Novolin R 0 unit SUBCUT .SLIDINGSCALE PRN 06/28/20 07/21/20 History Flexpen] lactulose 20 g PO TID PRN 06/28/20 07/21/20 History rifaximin [Xifaxan] 550 mg PO BID 06/28/20 07/21/20 History morphine 10 mg PO QAM 07/21/20 07/21/20 History nadolol 40 mg PO BID 07/21/20 07/21/20 History spironolactone 25 mg PO BID 07/21/20 07/21/20 History Patient History Medical History (Updated 07/22/20 @ 16:24 by Romel Fu MD) Acute hepatic encephalopathy Acute kidney injury Allergic rhinitis Anemia, unspecified Chronic kidney disease, unspecified Confusion Esophageal varices without bleeding Flatulence GERD (gastroesophageal reflux disease) HCV (hepatitis C virus) Treated Hyperlipidemia Hypertension Liver cirrhosis Low back pain Metabolic acidosis Microscopic hematuria Onychomycosis Palliative care encounter Partial small bowel obstruction Proteinuria Pruritus, unspecified Type 2 diabetes mellitus Umbilical hernia without obstruction or gangrene Social History Smoking Status: Never smoker Hx Alcohol Use: No Hx Substance Use: No Preferred Language: Latvian Communication Ability: Effective Patient Transport Orderly Required: No Beliefs That Will Affect Care: None Current Living Situation: Other Current Living Situation Comment: [facility]is Other Information That Helps Us Care for You: No Feels Safe at Home: Yes Safety Concerns: Feels Safe At This Time Assistive Devices: None Review of Systems Review of Systems: Unobtainable due to cognitive status Physical Exam Constitutional: not in distress Eyes: PERRL, conjunctivae normal, anicteric sclerae Neck: Thyroid: no thyromegaly Respiratory: normal respiratory effort, lungs clear to auscultation Cardiovascular: Rate/Rhythm: regular rate and regular rhythm Extremities: + edema (3+ dependent edema) Gastrointestinal (Abdomen): Inspection/Auscultation: + abdomen distended and + hypoactive bowel sounds Percussion/Palpation: + dullness to percussion and + fluid wave Neurologic: awake (oriented to self only) Results & Data ([facility]) Vital Signs (Past 12 Hours) Vital Signs Temp Pulse Pulse Resp BP BP Pulse Ox 07/22/20 08:39 72 17 180/78 H 99 07/22/20 08:00 36.8 C 72 15 98 07/22/20 07:00 72 21 98 07/22/20 04:06 36.7 C 70 18 140/63 99 PG Care Time/CCT Total # of Minutes Spent Total Time Spent with Patient: Total time spent is greater than 50% in coordination of care (as documented) at patient's floor/unit and/or counseling patient: Coding Level of Care Code 69394 Inpt Consult Level 5 Diagnoses CKD (chronic kidney disease), stage IV N18.4 Anasarca R60.1 Hyperkalemia E87.5 Anemia D64.9 Liver cirrhosis K74.60 Hepatic cirrhosis type: unspecified hepatic cirrhosis Ascites presence: without ascites (1) Liver cirrhosis Hepatic cirrhosis type: unspecified hepatic cirrhosis Ascites presence: without ascites Qualified Code(s): K74.60 - Unspecified cirrhosis of liver
[2020-07-22] MEDS ORDERED: EPOETIN ALFA 10,000 UNITS/ML VIAL SQ ONE (21:00)
[2020-07-23] MEDS ORDERED: hydrALAZINE HCL 20 MG/ML VIAL IV PRN (05:25)
[2020-07-23 05:57] LABS: BUN Creatinine Ratio 18.7 (10-20); Calcium 8.2 mg/dl (8.5-10.1); Creatinine Clr Calc Pharmacy 21.8 ml/min; Est GFR (African American) 17.2; Est GFR (Non-African American) 14.9; Potassium 5.4 mmol/L (3.5-5.1)
[2020-07-23 06:02] LABS: Ferritin 150.8 ng/ml (8-388)
[2020-07-23] MEDS: nadoloL 40 MG TAB PO SCH ×2 (08:36→20:11)
[2020-07-23] MEDS: LACTULOSE SYRUP 20 GM/30 ML UDC PO SCH ×3 (08:36→20:09)
[2020-07-23] MEDS: FUROSEMIDE 40 MG in SYRINGE 0 ML IV SCH (08:36)
[2020-07-23] MEDS: HEPARIN SOD 5,000 UNIT/0.5 ML VIAL SQ SCH ×2 (08:37→20:11)
[2020-07-23] MEDS: SODIUM BICARBONATE 650 MG TAB PO SCH (08:38)
[2020-07-23] MEDS: PATIROMER CALCIUM SORBITEX 8.4 GM PACK PO SCH (08:38)
[2020-07-23] MEDS: rifAXIMin 550 MG TABLET PO SCH ×2 (08:38→20:12)
[2020-07-23] MEDS: INSULIN HUMAN NPH SQ SCH (08:39)
[2020-07-23] MEDS: INSULIN ASPART 100 UNITS/ML 3 ML PEN SC SCH ×4 (08:40→20:10)
[2020-07-23] MEDS: MoRPHine SULFATE CR 15 MG TABCR PO SCH (08:44)
[2020-07-23] MEDS: ALBUMIN 25% 12.5 GM/50 ML VIAL IV SCH ×6 (08:45→20:32)
--- NOTE | 2020-07-23 09:34 | Nephrology Progress Note ---
Date of Service July 23, 2020 Assessment & Plan (1) CKD (chronic kidney disease), stage IV: * Baseline Cr has been 3.5 - 4.0 w/ EGFR ~ 15 cc/min. Kidney function remains stable at this time * Nephrotic range proteinuria likely related to diabetic nephropathy (DM > 10 years, + retinopathy) * Serology studies including PLA2, HIV, Hep B, C3/C4/CH50 have all been normal/negative * No acute indication for [employer] at this time. Patient does appear to be responding to medical management. He is a poor dialysis candidate due to recurrent hepatic encephalopathy, medical nonadherence. If it becomes necessary, dialysis may briefly prolong his life but will not improve quality of life due to recurrent hospitalization for encephalopathy (2) Anasarca: * Albumin 1.9 due to both hepatic and renal disease * Will continue SPA 25g IV q8 hours * Increase Furosemide to 80 mg IV q8 hours (3) Hyperkalemia: * Serum potassium trending down * Titrate diuretic therapy started as outlined above * Reduce oral NaHCO3 to once daily * Monitor PRP (4) Anemia: * Iron deficiency (iron sat 13%, ferritin 150) * Will schedule Venofer 200 mg IV daily x 5 doses * SQ Epogen administered 07/22/20 (5) Liver cirrhosis: * Refused lactulose this morning Admission and Anticipated Discharge Date Admission Date: July 21, 2020 Subjective Mr. Moreira was seen & examined in his hospital room. He denied angina, dyspnea or uremic symptoms. staff toxicologist reports that he refused his lactulose this morning. Patient is net 1500 cc volume negative overnight. Review of Systems Constitutional: no fever Eyes: no problem reported Respiratory: no dyspnea Cardiovascular: + edema; no chest pain Gastrointestinal: no abdominal pain, no nausea and no diarrhea/loose stools Musculoskeletal: no back pain Neurologic: no dizziness Physical Exam Constitutional: not in distress Eyes: PERRL, conjunctivae normal, anicteric sclerae Neck: Thyroid: no thyromegaly Respiratory: normal respiratory effort, lungs clear to auscultation Cardiovascular: Rate/Rhythm: regular rate and regular rhythm Extremities: + edema (3+ dependent edema) Gastrointestinal (Abdomen): Inspection/Auscultation: + abdomen distended and + hypoactive bowel sounds Percussion/Palpation: + dullness to percussion and + fluid wave Neurologic: awake (oriented to self only) Genitourinary: shelton catheter in place Results & Data ([facility]) Vital Signs (Past 12 Hours) Vital Signs Temp Pulse Pulse Resp BP BP Pulse Ox 07/23/20 09:05 71 22 145/101 H 99 07/23/20 09:00 71 23 98 07/23/20 08:35 72 18 153/97 H 98 07/23/20 08:00 36.6 C 70 14 07/23/20 07:00 71 19 07/23/20 06:04 146/64 H 07/23/20 04:41 36.5 C 73 24 175/97 H 97 07/23/20 00:00 36.5 C 73 24 162/86 H 97 Laboratory Tests 07/22/20 07/22/20 07/23/20 04:23 04:23 05:01 WBC 5.74 Hgb 8.0 L Hct 24.6 L Plt Count 141 Sodium 138 139 Potassium 5.6 H 5.4 H Chloride 114 H 114 H Carbon Dioxide 18 L 20 L BUN 72 H 74 H Creatinine 3.83 H 3.94 H Glucose 125 H 134 H Calcium 8.1 L 8.2 L PG Care Time/CCT Total # of Minutes Spent Total Time Spent with Patient: Total time spent is greater than 50% in coordination of care (as documented) at patient's floor/unit and/or counseling patient: Coding Level of Care Code 01708 Subseq Hosp Care Lvl 3 Diagnoses CKD (chronic kidney disease), stage IV N18.4 Anasarca R60.1 Hyperkalemia E87.5 Anemia D64.9 Liver cirrhosis K74.60 Hepatic cirrhosis type: unspecified hepatic cirrhosis Ascites presence: without ascites (1) Liver cirrhosis Hepatic cirrhosis type: unspecified hepatic cirrhosis Ascites presence: without ascites Qualified Code(s): K74.60 - Unspecified cirrhosis of liver
[2020-07-23] MEDS: IRON SUCROSE 200 MG in 0.9 % SODIUM CHLORIDE 100 ML IV SCH (10:48)
--- NOTE | 2020-07-23 11:44 | Hospitalist Progress Note ---
Date of Service July 23, 2020 Assessment & Plan (1) Liver cirrhosis: Mr. Moreira is a 65 yo M prisoner with a PMHx of liver cirrhosis and Stage IV CKD who was admitted for volume overload, thought to be exacerbation of hepatorenal syndrome. Patient was recently admitted to [facility] for the same pathophysiology in May and was discharged back to prisoner on comfort care. He returned with request for further intervention. Nephrology was consulted and feels as though patient is a poor candidate for dialysis therapy, nor would it prolong or improve his quality of life. Patient was started on IV albumin and IV lasix. Palliative consulted - patient likely discharge with hospice back to [facility]. Liver cirrhosis: - secondary to previous Hep C infection, treated with Epclusa - History of frequent hyperammonemia and non compliance with lactulose. - Per [facility], patient has been more compliant lately, ammonia level normal on admission - Previously seen by Stephanie DICKINSON during May admission. They had recommended transfer to tertiary care due to worsening kidney and liver function, however patient was not transferred due to being a poor dialysis candidate. - With his improvement in mentation this visit, Stephanie Iyer was called by the ED for transfer -- > recommend continued care at our facility - MELD score 22, which carries a 20% 3 month mortality rate - continue home rifampin CKD (chronic kidney disease), stage IV: - Baseline creatinine is 4-4.5 with GFR 13 at last discharge - creat 3.88 on admission, up to 3.94 today - patient has been deemed a poor dialysis candidate in the past due to recurrent hepatic encephalopathy and inability to comply with medical treatments - nephrology consulted, again recommending against dialysis therapy (no acute indication, patient is an overall poor candidate, not likely to prolong life or improve quality). - Increase lasix from 40 to 80mg IV, continue IV albumin Hyperkalemia: - K 5.9 on admission, down to 5.4 - EKG without changes - given 80mg lasix, 10 units of regular insulin in ED on admission - continue Veltassa per nephrology - trend BMP Anemia - Hgb 8.0 - started on IV Venofer by nephrology - given Epogen on 07/22 Hypoalbuminemia - level low 1.9 - secondary both to hepatic and renal failure - contributory to anasarca Metabolic acidosis: - Bicarb increased from 18 to 20 today - continue NaBicarb po 650 mg, but reduce to once daily per nephrology - trend BMP 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 - Continue nadolol Type 2 diabetes mellitus: - pharmacy glycemic consult - cause of nephropathy - A1c 5.4 on admission (however unclear if this is altered due to acute liver failure) Dispo: PCU Diet: low Na, low K, fluid restrict 1200ml DVT ppx: heparin Code: Full Admission and Anticipated Discharge Date Admission Date: July 21, 2020 Supervising Physician Co-Signing Physician Notes Patient seen and examined independently of PGY-2 Dr Adames. Agree with history, exam findings, assessment and plan of care as outlined with the following updates/changes: In brief, Mr. Moreira is a 65 year old male with history of CKD, cirrhosis with hepatic encephalopathy, and DM admitted with hyperkalemia and generalized anasarca. Denies chest pain, palpitations, shortness of breath today. Does endorse some generalized abdominal pain. He tells me that he wants to live the best life possible. He is not sure what that looks like at this point. He is aware that dialysis and other invasive interventions would not change the underlying disease process or necessarily improve his quality of life. Vital signs and nursing notes reviewed. On exam, he has pitting edema to the hips and pitting edema over the abdominal wall. +reducible umbilical hernia. Generalized abdominal tenderness. +pitting edema over the hands and forearms bilaterally. Labs and imaging reviewed. 1. hyperkalemia. improving. continue tele. Continue veltessa 8.4mg daily. Continued IV Lasix as below will also likely be helpful. 2. CKD stage IV with metabolic acidosis. eGFR 17. Appreciate nephrology recommendations. Continue with bicarb. Poor dialysis candidate due to historical non-adherence with lactulose precipitating worsening hepatic encephalopathy. 3. cirrhosis (Secondary to hepatitis C s/p treatment), hepatic encephalopathy, esophageal varices. No bleeding. Clear sensorium today on exam. Continue home nadalol 40m BID. Goal HR should be in the 60s. 4. Anasarca. Secondary to fluid overload from CKD and cirrhosis. Lasix increased to 80mg IV q8h + albumin. Monitor I/O's. 5. DM. glycemic consult. Appreciate recommendations. 6. Anemia. chronic. baseline hgb 9-10 in the past. No signs of bleeding. Started on venofer, s/p epogen. Appreciate palliative recommendations and assistance with goals of care for Mr. Moreira. Our team plans to contact the [facility] physician to discuss the case as well. Dispo: pending clinical improvement. Subjective No acute events overnight. Patient states he feels about the same as yesterday. Per nursing, he refused his am lactulose. He states that he would like to be able to spend the remainder of his life surrounded by his family members. He clearly states he wants to be kept comfortable. Review of Systems Cardiovascular: + edema Physical Exam Constitutional: + ill appearing and cooperative Eyes: + anicteric sclerae ENMT: external ear and nose normal, oropharynx normal Neck: normal visual inspection and trachea midline Respiratory: normal respiratory effort; no respiratory distress and no cough Cardiovascular: RRR, no murmur, no edema Heart Sounds: normal S1 and normal S2 Extremities: + pedal edema Gastrointestinal (Abdomen): Inspection/Auscultation: + abdomen distended, normal bowel sounds and + abdominal edema Percussion/Palpation: + abdomen tender (diffusely ) and abdomen soft; no guarding Skin: no rashes, warm and dry Psychiatric: Orientation: alert and oriented x 3 Results & Data Results & Data ([facility]) Vital Signs (Past 12 Hours) Vital Signs Temp Pulse Pulse Resp BP BP Pulse Ox 07/23/20 09:05 71 22 145/101 H 99 07/23/20 09:00 71 23 98 07/23/20 08:35 72 18 153/97 H 98 07/23/20 08:00 36.6 C 70 14 07/23/20 07:00 71 19 07/23/20 06:04 146/64 H 07/23/20 04:41 36.5 C 73 24 175/97 H 97 07/23/20 00:00 36.5 C 73 24 162/86 H 97 Resident Activity Tracking Resident Involvement: Resident Care Provided Care Provided: Adult Hospital Medicine (1) Liver cirrhosis Ascites presence: without ascites Hepatic cirrhosis type: unspecified hepatic cirrhosis Qualified Code(s): K74.60 - Unspecified cirrhosis of liver
--- NOTE | 2020-07-23 13:00 | Pharmacy Report ---
Pharmacy Glycemic Short Note 2 - Date of Service July 23, 2020 - Glycemic Short BSG Results (Last 24 hours): 07/22/20 07/22/20 07/23/20 16:29 21:20 05:01 Glucose 134 H POC Glucose 161 H 145 H 07/23/20 07/23/20 08:19 11:06 Glucose POC Glucose 144 H 151 H OUTPATIENT ANTIDIABETIC REGIMEN: * 70/30 30 units qAM + loose regular sliding scale * A1c 5.4% 07/22/20- although may be unreliable in setting of CKD ASSESSMENT: 07/23 * Patient received 15 units of insulin yesterday, 10 units of NPH, 5 units of correctional/prandial * BSGs [phone] mg/dL- adequately controlled * Will continue same today 07/22 * Mr. Moreira has a complicated PMH including CKD and hep C. Patient's SCr elevated and patient admitted with hyperkalemia, fluid overload. Patient previously assessed by nephrology and thought to be a poor candidate for dialysis. Patient is currently incarcerated. * Outpatient A1c indicates good control, however may be altered as patient has CKD * Patient has been well controlled on novolog with weight based stress of 2 parameters. Will continue for now. * Did give patient 10 units of NPH with breakfast equivalent ~half of home dose. Will re-eval need tomorrow morning. PLAN FOR INPATIENT GLYCEMIC CONTROL: * Hold outpatient oral diabetes medications * Basal insulin * NPH 10 units with breakfast * Bolus insulin * NovoLog per scale ACHS or Q6hrs while NPO * Goal Range: Low 110 mg/dL - High 140 mg/dL * Correction Factor: 20 mg/dL/unit * Nutritional / Prandial insulin per carb ratio of 1 unit per 7 grams CHO consumed PLAN FOR DISCHARGE: * Patient's a1c indicates good outpatient control (although may be unreliable with CKD) and is at goal. Patient can likely resume outpatient regimen as long as patient not experiencing frequent hypoglycemic events.
[2020-07-23] MEDS: FUROSEMIDE 80 MG in SYRINGE 0 ML IV SCH ×2 (14:58→20:16)
[2020-07-24 05:17] LABS: Hematocrit (blood only) 24.6 % (42-52); Mean Corpuscular Hemoglobin 32.4 pg (25-34); Mean Corpuscular Hgb Conc 32.5 g/dL (32-36); Mean Corpuscular Volume 99.6 fL (80-100); Mean Platelet Volume 10.5 fL (7.4-10.4); Platelet Count 114 K/uL (130-400); RDW Coefficient of Variation 15.8 % (11.5-14.5); RDW Standard Deviation 57.3 fL (36.4-46.3); Red Blood Count 2.47 M/uL (4.7-6.1); White Blood Count 4.24 K/uL (4.8-10.8)
[2020-07-24 05:28] LABS: BUN Creatinine Ratio 18.6 (10-20); Calcium 8.6 mg/dl (8.5-10.1); Creatinine Clr Calc Pharmacy 22.3 ml/min; Est GFR (African American) 17.7; Est GFR (Non-African American) 15.3; Potassium 5.3 mmol/L (3.5-5.1)
[2020-07-24] MEDS: INSULIN ASPART 100 UNITS/ML 3 ML PEN SC SCH ×4 (07:59→21:34)
[2020-07-24] MEDS: INSULIN HUMAN NPH SQ SCH (08:02)
[2020-07-24] MEDS: LACTULOSE SYRUP 20 GM/30 ML UDC PO SCH ×2 (08:03→19:16)
[2020-07-24] MEDS: nadoloL 40 MG TAB PO SCH ×2 (08:06→19:16)
[2020-07-24] MEDS: SODIUM BICARBONATE 650 MG TAB PO SCH (08:06)
[2020-07-24] MEDS: HEPARIN SOD 5,000 UNIT/0.5 ML VIAL SQ SCH ×2 (08:06→19:16)
[2020-07-24] MEDS: rifAXIMin 550 MG TABLET PO SCH ×2 (08:07→19:16)
[2020-07-24] MEDS: MoRPHine SULFATE CR 15 MG TABCR PO SCH (08:11)
[2020-07-24] MEDS: FUROSEMIDE 80 MG in SYRINGE 0 ML IV SCH ×3 (08:11→21:06)
[2020-07-24] MEDS: ALBUMIN 25% 12.5 GM/50 ML VIAL IV SCH ×6 (08:12→21:58)
[2020-07-24] MEDS: IRON SUCROSE 200 MG in 0.9 % SODIUM CHLORIDE 100 ML IV SCH (08:17)
[2020-07-24] MEDS: PATIROMER CALCIUM SORBITEX 8.4 GM PACK PO SCH (08:18)
--- NOTE | 2020-07-24 10:21 | Nephrology Progress Note ---
Date of Service July 24, 2020 Assessment & Plan (1) CKD (chronic kidney disease), stage IV: * Baseline Cr has been 3.5 - 4.0 w/ EGFR ~ 15 cc/min. Kidney function remains stable at this time * Nephrotic range proteinuria likely related to diabetic nephropathy (DM > 10 years, + retinopathy) * Serology studies including PLA2, HIV, Hep B, C3/C4/CH50 have all been normal/negative * No acute indication for CONSTRUCTION CHECKER at this time. Patient does appear to be responding to medical management. He is a poor dialysis candidate due to recurrent hepatic encephalopathy, medical nonadherence. If it becomes necessary, dialysis may briefly prolong his life but will not improve quality of life due to recurrent hospitalization for encephalopathy (2) Anasarca: * Albumin 1.9 due to both hepatic and renal disease * Will continue SPA 25g IV q8 hours * Continue Furosemide 80 mg IV q8 hours (3) Hyperkalemia: * Serum potassium trending down * Continue diuretic therapy started as outlined above * Coninue oral NaHCO3 once daily * Monitor PRP (4) Anemia: * Iron deficiency (iron sat 13%, ferritin 150) * Day #2 of 5 IV Venofer * SQ Epogen administered 07/22/20 (5) Liver cirrhosis: Admission and Anticipated Discharge Date Admission Date: July 21, 2020 Subjective Mr. Moreira was seen & examined in his hospital room. He denied angina, dyspnea or uremic symptoms. Patient is net 1500 cc volume negative overnight. Review of Systems Constitutional: no fever Eyes: no problem reported Ear, Nose, Mouth, Throat: no problem reported Respiratory: no dyspnea Cardiovascular: + edema; no chest pain Gastrointestinal: no abdominal pain, no nausea and no diarrhea/loose stools Neurologic: no dizziness Physical Exam Constitutional: not in distress Eyes: PERRL, conjunctivae normal, anicteric sclerae Neck: Thyroid: no thyromegaly Respiratory: normal respiratory effort, lungs clear to auscultation Cardiovascular: Rate/Rhythm: regular rate and regular rhythm Extremities: + edema (3+ dependent edema) Gastrointestinal (Abdomen): Inspection/Auscultation: + abdomen distended and + hypoactive bowel sounds Percussion/Palpation: + dullness to percussion and + fluid wave Neurologic: awake (oriented to self only) Results & Data ([facility]) Vital Signs (Past 12 Hours) Vital Signs Temp Pulse Pulse Resp BP BP Pulse Ox 07/24/20 09:54 36.8 C 07/24/20 09:50 75 22 07/24/20 09:40 74 15 07/24/20 09:30 76 21 07/24/20 09:20 74 18 07/24/20 09:14 77 18 07/24/20 09:00 75 23 07/24/20 08:51 75 24 07/24/20 08:50 71 15 159/72 H 07/24/20 08:40 73 14 07/24/20 08:34 72 19 151/91 H 07/24/20 08:30 72 17 07/24/20 08:20 73 23 07/24/20 08:10 72 18 07/24/20 08:05 71 19 164/91 H 95 07/24/20 08:00 70 18 07/24/20 07:50 71 26 H 07/24/20 07:40 71 22 07/24/20 07:30 73 19 07/24/20 07:20 72 24 07/24/20 07:10 74 14 07/24/20 07:00 74 23 07/24/20 04:00 72 14 97 07/24/20 03:57 73 19 149/77 H 07/24/20 03:28 36.8 C 74 13 154/67 H 07/24/20 03:00 71 17 07/24/20 00:07 135/105 H 07/23/20 23:48 36.6 C 73 16 174/96 H 96 Laboratory Tests 07/24/20 07/24/20 07/24/20 04:59 04:59 04:59 WBC 4.24 L Hgb 8.0 L Hct 24.6 L Plt Count 114 L Sodium 142 Potassium 5.3 H Chloride 114 H Carbon Dioxide 21 BUN 72 H Creatinine 3.86 H Glucose 149 H Ammonia 34.0 H (1) Liver cirrhosis Hepatic cirrhosis type: unspecified hepatic cirrhosis Ascites presence: without ascites Qualified Code(s): K74.60 - Unspecified cirrhosis of liver
--- NOTE | 2020-07-24 15:39 | Hospitalist Progress Note ---
Date of Service July 24, 2020 Assessment & Plan (1) Liver cirrhosis: Mr. Moreira is a 65 yo M prisoner with a PMHx of liver cirrhosis and Stage IV CKD who was admitted for volume overload, thought to be exacerbation of hepatorenal syndrome. Patient was recently admitted to [facility] for the same pathophysiology in May and was discharged back to [facility] on comfort care. He returned with request for further intervention. Nephrology was consulted and feels as though patient is a poor candidate for dialysis therapy, nor would it prolong or improve his quality of life. Patient was started on IV albumin and IV lasix (currently requiring 80mg IV q8h, yet still edematous on exam). Palliative consulted - ongoing goals of care discussion with patient today. Patient's goals are to be able to be with family when he dies, however this is unrealistic (per [facility], family will not be able to come to infirmary, nor will patient likely be a candidate for a sympathic release from senior care, as he is sentenced to life). Patient is unable to reconcile medical prognosis with his legal realities. Detention contacted today - they are capable of giving both IV lasix and albumin, but need 48 hours for orders to be filled. Per [facility], Valtessa not on [facility] formulary. Liver cirrhosis: - secondary to previous Hep C infection, treated with Epclusa - History of frequent hyperammonemia and non compliance with lactulose. - Per [facility], patient has been more compliant lately, ammonia level normal on admission - Previously seen by Stephanie DICKINSON during May admission. They had recommended transfer to tertiary care due to worsening kidney and liver function, however patient was not transferred due to being a poor dialysis candidate. - With his improvement in mentation this visit, Stephanie Iyer was called by the ED for transfer -- > recommend continued care at our facility - MELD score 22, which carries a 20% 3 month mortality rate - continue home rifampin CKD (chronic kidney disease), stage IV: - Baseline creatinine is 4-4.5 with GFR 13 at last discharge - creat 3.88 on admission, up to 3.94 today - patient has been deemed a poor dialysis candidate in the past due to recurrent hepatic encephalopathy and inability to comply with medical treatments - nephrology consulted, again recommending against dialysis therapy (no acute indication, patient is an overall poor candidate, not likely to prolong life or improve quality). - continue lasix 80mg IV, continue IV albumin q8h Hyperkalemia: - K 5.9 on admission, down to 5.3 - EKG without changes - given 80mg lasix, 10 units of regular insulin in ED on admission - currently on IV Lasix, 80mg, q8h - continue Valtassa per nephrology (cannot get Valtassa in [facility], not on formulary) - trend BMP Anemia - Hgb 8.0 - started on IV Venofer by nephrology (currently day ) - given Epogen on 07/22 Hypoalbuminemia - level low 1.9 - secondary both to hepatic and renal failure - contributory to anasarca Metabolic acidosis: - Bicarb increased to 21 today - continue NaBicarb po 650 mg, but reduce to once daily per nephrology - trend BMP 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 - Continue nadolol Type 2 diabetes mellitus: - pharmacy glycemic consult - cause of nephropathy - A1c 5.4 on admission (however unclear if this is altered due to acute liver failure) Dispo: PCU Diet: low Na, low K, fluid restrict 1200ml DVT ppx: heparin Code: Full Admission and Anticipated Discharge Date Admission Date: July 21, 2020 Supervising Physician Co-Signing Physician Notes Patient seen and examined independently of PGY-2 Dr Adames. Agree with history, exam findings, assessment and plan of care as outlined with the following updates/changes: In brief, Mr. Moreira is a 65 year old male with history of CKD, cirrhosis with hepatic encephalopathy, and DM admitted with hyperkalemia and generalized anasarca. Denies chest pain, palpitations, shortness of breath today. Vital signs and nursing notes reviewed. On exam, he has pitting edema to the hips and pitting edema over the abdominal wall. +reducible umbilical hernia. Generalized abdominal tenderness. +pitting edema over the hands and forearms bilaterally. Labs and imaging reviewed. 1. hyperkalemia. improving. continue tele. Continue veltessa 8.4mg daily. Continued IV Lasix as below will also likely be helpful. Will need to get a recommendations from nephrology if there is an alternative agent to veltessa as this is not on formulary at the [facility]. 2. CKD stage IV with metabolic acidosis. eGFR 17. Acidosis improving. Appreciate nephrology recommendations. Continue with bicarb. Poor dialysis candidate due to historical non-adherence with lactulose precipitating worsening hepatic encephalopathy. 3. cirrhosis (Secondary to hepatitis C s/p treatment), hepatic encephalopathy, esophageal varices. No bleeding. Clear sensorium today on exam. Continue home nadalol 40m BID. Goal HR should be in the 60s. 4. Anasarca. Secondary to fluid overload from CKD and cirrhosis. Lasix increased to 80mg IV TID + albumin. Monitor I/O's. 5. DM. glycemic consult. Appreciate recommendations. 6. Anemia. chronic. baseline hgb 9-10 in the past. No signs of bleeding. Started on venofer, s/p epogen. Appreciate palliative recommendations and assistance with goals of care for Mr. Moreira. Our team plans to contact the [facility] physician to discuss the case as well. Dispo: Dr. Adames spoke with providers at the [facility]. They are able to do IV Lasix and albumin, but will need 2 days to order and receive the medication. Subjective no acute events overnight. Patient states he does not want to be in the hospital any longer. He expresses continued desire to see his family. Review of Systems Cardiovascular: + edema Physical Exam Constitutional: + ill appearing and cooperative Eyes: + anicteric sclerae ENMT: external ear and nose normal, oropharynx normal Neck: normal visual inspection and trachea midline Respiratory: normal respiratory effort; no respiratory distress and no cough Cardiovascular: RRR, no murmur, no edema Heart Sounds: normal S1 and normal S2 Extremities: + pedal edema Gastrointestinal (Abdomen): Inspection/Auscultation: + abdomen distended, normal bowel sounds and + abdominal edema Percussion/Palpation: + abdomen tender (diffusely ) and abdomen soft; no guarding Skin: no rashes, warm and dry Psychiatric: Orientation: alert and oriented x 3 Results & Data Results & Data ([facility]) Vital Signs (Past 12 Hours) Vital Signs Temp Pulse Resp BP Pulse Ox 07/24/20 15:14 36.9 C 98 07/24/20 15:11 74 16 07/24/20 15:09 73 17 153/106 H 07/24/20 15:00 72 14 07/24/20 14:50 72 30 H 07/24/20 14:40 73 16 98 07/24/20 14:39 71 18 94 12/02/20 14:20 72 22 07/24/20 14:10 72 22 07/24/20 14:00 72 32 H 07/24/20 13:50 73 31 H 07/24/20 13:40 72 17 07/24/20 13:30 72 21 07/24/20 13:20 72 20 87 L 07/24/20 13:10 75 14 98 07/24/20 13:09 75 25 H 96 07/24/20 12:50 75 22 07/24/20 12:40 76 24 07/24/20 12:30 77 15 07/24/20 12:20 77 18 07/24/20 12:10 36.9 C 75 16 07/24/20 12:00 74 17 07/24/20 11:50 75 22 07/24/20 11:40 76 23 07/24/20 11:30 75 32 H 07/24/20 11:20 74 24 07/24/20 11:10 75 17 07/24/20 11:02 75 20 07/24/20 11:01 75 32 H 166/95 H 07/24/20 11:00 75 18 07/24/20 10:50 75 20 07/24/20 10:40 75 14 07/24/20 10:30 75 19 07/24/20 10:20 75 13 07/24/20 10:10 75 17 07/24/20 10:00 76 22 07/24/20 09:54 36.8 C 07/24/20 09:50 75 22 07/24/20 09:40 74 15 07/24/20 09:30 76 21 07/24/20 09:20 74 18 07/24/20 09:14 77 18 07/24/20 09:00 75 23 07/24/20 08:51 75 24 07/24/20 08:50 71 15 159/72 H 07/24/20 08:40 73 14 07/24/20 08:34 72 19 151/91 H 07/24/20 08:30 72 17 07/24/20 08:20 73 23 07/24/20 08:10 72 18 07/24/20 08:05 71 19 164/91 H 95 07/24/20 08:00 70 18 07/24/20 07:50 71 26 H 07/24/20 07:40 71 22 07/24/20 07:30 73 19 12/02/20 07:20 72 24 07/24/20 07:10 74 14 07/24/20 07:00 74 23 07/24/20 04:00 72 14 97 07/24/20 03:57 73 19 149/77 H 07/24/20 03:28 36.8 C 74 13 154/67 H Resident Activity Tracking Resident Involvement: Resident Care Provided Care Provided: Adult Hospital Medicine (1) Liver cirrhosis Ascites presence: without ascites Hepatic cirrhosis type: unspecified hepatic cirrhosis Qualified Code(s): K74.60 - Unspecified cirrhosis of liver
--- NOTE | 2020-07-24 15:43 | Palliative Care Progress Note ---
Date of Service July 24, 2020 Assessment & Plan (1) Palliative care encounter: He has said multiple times that he desires comfort directed care. He talks about his dying time being when God is ready and not hastening his . He has expressed the desire to have his family with him at his dying time, though unfortunately that is not possible. His brother also suffers from chronic medical problems and has had the opportunity to visit with him on his last hospitalization. I reassured him that we are not in any way trying to hasten his but are focusing on his comfort per his wishes. He could return to [facility] with hospice care. It is not necessary for him to be DNR for hospice care and this could be adjusted as his condition changes in order to follow his wishes. It is clearly not in his best interest to pursue resuscitation given his renal and hepatic failure with poor prognosis. (2) Anasarca: (3) Liver cirrhosis: (4) CKD (chronic kidney disease), stage IV: Admission and Anticipated Discharge Date Admission Date: July 21, 2020 Subjective Awake and alert. Resting comfortably in bed. Review of Systems Review of Systems: [place] Symptom Assessment Scale Pain 0/3 Dyspnea 0/3 Nausea 0/3 Drowsiness 0/3 Anxiety 1/3 Palliative Performance Score 30% Physical Exam Constitutional: no acute distress Respiratory: normal respiratory effort; no labored breathing Cardiovascular: Extremities: + edema Musculoskeletal: Head/Neck/Chest: normocephalic and head atraumatic Skin: no diaphoresis Psychiatric: agitated Results & Data ([facility]) Vital Signs (Past 12 Hours) Vital Signs Temp Pulse Resp BP Pulse Ox 07/24/20 15:14 98.4 F 98 07/24/20 15:11 74 16 07/24/20 15:09 73 17 153/106 H 07/24/20 15:00 72 14 07/24/20 14:50 72 30 H 07/24/20 14:40 73 16 98 07/24/20 14:39 71 18 94 07/24/20 14:20 72 22 07/24/20 14:10 72 22 07/24/20 14:00 72 32 H 07/24/20 13:50 73 31 H 07/24/20 13:40 72 17 07/24/20 13:30 72 21 07/24/20 13:20 72 20 87 L 07/24/20 13:10 75 14 98 07/24/20 13:09 75 25 H 96 07/24/20 12:50 75 22 07/24/20 12:40 76 24 07/24/20 12:30 77 15 07/24/20 12:20 77 18 07/24/20 12:10 98.4 F 75 16 07/24/20 12:00 74 17 07/24/20 11:50 75 22 07/24/20 11:40 76 23 07/24/20 11:30 75 32 H 07/24/20 11:20 74 24 07/24/20 11:10 75 17 07/24/20 11:02 75 20 07/24/20 11:01 75 32 H 166/95 H 07/24/20 11:00 75 18 07/24/20 10:50 75 20 07/24/20 10:40 75 14 07/24/20 10:30 75 19 07/24/20 10:20 75 13 07/24/20 10:10 75 17 07/24/20 10:00 76 22 07/24/20 09:54 98.2 F 07/24/20 09:50 75 22 07/24/20 09:40 74 15 07/24/20 09:30 76 21 07/24/20 09:20 74 18 07/24/20 09:14 77 18 07/24/20 09:00 75 23 07/24/20 08:51 75 24 07/24/20 08:50 71 15 159/72 H 07/24/20 08:40 73 14 07/24/20 08:34 72 19 151/91 H 07/24/20 08:30 72 17 07/24/20 08:20 73 23 07/24/20 08:10 72 18 07/24/20 08:05 71 19 164/91 H 95 07/24/20 08:00 70 18 07/24/20 07:50 71 26 H 07/24/20 07:40 71 22 07/24/20 07:30 73 19 07/24/20 07:20 72 24 07/24/20 07:10 74 14 07/24/20 07:00 74 23 07/24/20 04:00 72 14 97 07/24/20 03:57 73 19 149/77 H PG Care Time/CCT Total # of Minutes Spent Total Time Spent with Patient: Total time spent is greater than 50% in coordination of care (as documented) at patient's floor/unit and/or counseling patient: Total time spent is 30 minutes with more than 50% of time spent on discussing goals and plan of care and coordination with hospitalist team. Coding Level of Care Code 03422 Subseq Hosp Care Lvl 2 Diagnoses Palliative care encounter Z51.5 Anasarca R60.1 Liver cirrhosis K74.60 Hepatic cirrhosis type: unspecified hepatic cirrhosis Ascites presence: without ascites CKD (chronic kidney disease), stage IV N18.4 (1) Liver cirrhosis Hepatic cirrhosis type: unspecified hepatic cirrhosis Ascites presence: without ascites Qualified Code(s): K74.60 - Unspecified cirrhosis of liver
--- NOTE | 2020-07-25 01:02 | Procedure Note ---
Procedure Note Date of Service July 25, 2020 I was asked by nursing staff to assess for placement of endurance catheter as the patient is agitated and requires ongoing intravenous access. Patient with volume overload and anasarca with edema to his extremities requiring difficulty with peripheral access. Patient is requiring albumin and IV Lasix dosing. Per brief evaluation of patient's chart, it appears as though the patient may be discharged back to the senior care system within the next 24 to 48 hours and will continue to receive albumin and Lasix as well. Given this understanding and need for long-term intravenous access, I agreed to assess the patient for endurance catheter which, theoretically, under sterile procedure, can be left in place for 30 days. Procedure: [employer] Indwelling Peripherally Inserted IV Catheter Placement Attending: Dr. Espinoza APC: Champ Werner PA-C Indication: Need for IV Access, Poor Vascular Access Anesthesia: None Verbal consent was obtained from patient prior to performing the procedure. A time-out was completed verifying correct patient, procedure, site, positioning, and implant(s) or special equipment if applicable. Utilizing bedside ultrasound, vascularity of the LEFT upper extremity was assessed. Vessel size was noted for appropriate catheter selection and skin was marked with gentle pressure. Patients LEFT upper extremity was prepped and draped in the usual sterile fashion utilizing chlorhexidine. Ultrasound guidance was used to aid needle placement. An 18 g Endurance Catheter was introduced into the Brachial vein under direct ultrasound guidance. Guide wire was easily deployed without resistance. Catheter was threaded over the guide wire without resistance and the entire apparatus was removed intact. Good venous blood return was noted in the catheter. The IV catheter was easily flushed with sterile saline flush. Sterile clave was attached to the end of the catheter and good blood return was again noted. Tourniquet was released. StatLock device and sterile dressing were applied. The patient tolerated the procedure well. Blood Loss: Minimal Complications: None Procedural Ultrasound Guidance: Procedure Date: 07/25/2020 Indication: Poor Vascular Access Attending: Dr. Espinoza APC: Champ Werner PA-C Artery/Veins Identified: YES Access confirmed in Vein with ultrasound: YES Complications: NONE Patient tolerated procedure: WELL Coding CPT Codes Tubes, Drains, and Vasc Access - Tubes, Drains, and Vasc Access: [id number] Venipuncture, Age 2/>Req phys skill, (sep proc), Dx/Tx (not rtn) ([id number]) [facility] Procedure Codes (Charges) Tubes, Drains, and Vasc Access Procedure 1: Tubes, Drains, and Vasc Access: [id number] Venipuncture, Age 2/>Req phys skill, (sep proc), Dx/Tx (not rtn)
[2020-07-25] MEDS ORDERED: hydrALAZINE HCL 20 MG/ML VIAL IV ONE (01:03)
[2020-07-25 06:00] LABS: Albumin Level 3.2 gm/dl (3.4-5.0); BUN Creatinine Ratio 18.3 (10-20); Calcium 8.6 mg/dl (8.5-10.1); Creatinine Clr Calc Pharmacy 20.9 ml/min; Est GFR (African American) 16.9; Est GFR (Non-African American) 14.6; Potassium 5.4 mmol/L (3.5-5.1)
[2020-07-25] MEDS: nadoloL 40 MG TAB PO SCH ×2 (08:23→20:36)
[2020-07-25] MEDS: rifAXIMin 550 MG TABLET PO SCH ×2 (08:23→20:38)
[2020-07-25] MEDS: ALBUMIN 25% 12.5 GM/50 ML VIAL IV SCH ×3 (08:23→09:24)
[2020-07-25] MEDS: SODIUM BICARBONATE 650 MG TAB PO SCH (08:23)
[2020-07-25] MEDS: LACTULOSE SYRUP 20 GM/30 ML UDC PO SCH ×2 (08:23→20:36)
[2020-07-25] MEDS: HEPARIN SOD 5,000 UNIT/0.5 ML VIAL SQ SCH ×2 (08:24→20:37)
[2020-07-25] MEDS: MoRPHine SULFATE CR 15 MG TABCR PO SCH (08:24)
[2020-07-25] MEDS: INSULIN ASPART 100 UNITS/ML 3 ML PEN SC SCH ×4 (08:25→20:38)
[2020-07-25] MEDS: PATIROMER CALCIUM SORBITEX 8.4 GM PACK PO SCH (08:26)
[2020-07-25] MEDS: IRON SUCROSE 200 MG in 0.9 % SODIUM CHLORIDE 100 ML IV SCH (08:26)
[2020-07-25] MEDS: INSULIN HUMAN NPH SQ SCH (09:12)
[2020-07-25] MEDS: FUROSEMIDE 80 MG in SYRINGE 0 ML IV SCH ×2 (09:17→20:37)
--- NOTE | 2020-07-25 09:36 | Dialysis Progress Note ---
Date of Service July 25, 2020 Assessment & Plan (1) CKD (chronic kidney disease), stage IV: * Baseline Cr has been 3.5 - 4.0 w/ EGFR ~ 15 cc/min. Kidney function remains stable at this time * Nephrotic range proteinuria likely related to diabetic nephropathy (DM > 10 years, + retinopathy) * Serology studies including PLA2, HIV, Hep B, C3/C4/CH50 have all been normal/negative * No acute indication for THOROUGH[employer]GER at this time. Patient does appear to be responding to medical management. He is a poor dialysis candidate due to recurrent hepatic encephalopathy, medical nonadherence. If it becomes necessary, dialysis may briefly prolong his life but will not improve quality of life due to recurrent hospitalization for encephalopathy (2) Anasarca: * Albumin 1.9 due to both hepatic and renal disease * Will stop SPA since serum albumin now 3.2 * Will reduce Furosemide to 80 mg IV q12 hours * Monitor I&O's. Target net 1000 - 1500 cc UF (3) Hyperkalemia: * Serum potassium trending down * Continue diuretic therapy started as outlined above * Coninue oral NaHCO3 once daily * Monitor PRP (4) Anemia: * Iron deficiency (iron sat 13%, ferritin 150) * Day #3 of 5 IV Venofer * SQ Epogen administered 07/22/20 (5) Liver cirrhosis: Admission and Anticipated Discharge Date Admission Date: July 21, 2020 Subjective Mr. Moreira was seen & examined in his hospital room this morning. He denied fever, angina, dyspnea or uremic symptoms Review of Systems Constitutional: + weakness; no fever Eyes: no problem reported Ear, Nose, Mouth, Throat: no problem reported Respiratory: no dyspnea Cardiovascular: + edema; no chest pain Gastrointestinal: no abdominal pain, no nausea and no diarrhea/loose stools Musculoskeletal: no back pain Integumentary: no rash Neurologic: no dizziness and no confusion Physical Exam Constitutional: not in distress Eyes: PERRL, conjunctivae normal, anicteric sclerae Neck: Thyroid: no thyromegaly Respiratory: normal respiratory effort, lungs clear to auscultation Cardiovascular: Rate/Rhythm: regular rate and regular rhythm Extremities: + edema (1+ pretibial pitting edema) Gastrointestinal (Abdomen): Inspection/Auscultation: + abdomen distended and + hypoactive bowel sounds Percussion/Palpation: + dullness to percussion and + fluid wave Neurologic: awake (oriented to self only) Genitourinary: + scrotal swelling (improved. Finn catheter remains in place) Results & Data ([facility]) Vital Signs (Past 12 Hours) Vital Signs Temp Pulse Resp BP Pulse Ox 07/25/20 08:00 72 07/25/20 06:11 72 21 157/83 H 97 07/25/20 03:52 36.8 C 07/25/20 03:50 74 19 169/82 H 96 07/25/20 03:49 74 21 159/110 H 95 07/25/20 03:09 74 18 158/105 H 96 07/25/20 01:52 77 19 173/87 H 96 07/25/20 01:10 77 23 147/91 H 96 07/25/20 00:55 76 16 180/87 H 95 07/25/20 00:01 78 14 186/86 H 94 07/25/20 00:00 36.8 C Coding Level of Care Code 95818 Subseq Hosp Care Lvl 3 Diagnoses CKD (chronic kidney disease), stage IV N18.4 Anasarca R60.1 Hyperkalemia E87.5 Anemia D64.9 Liver cirrhosis K74.60 Hepatic cirrhosis type: unspecified hepatic cirrhosis Ascites presence: without ascites (1) Liver cirrhosis Hepatic cirrhosis type: unspecified hepatic cirrhosis Ascites presence: without ascites Qualified Code(s): K74.60 - Unspecified cirrhosis of liver
--- NOTE | 2020-07-25 10:15 | Nephrology Progress Note ---
Date of Service July 25, 2020 Assessment & Plan (1) CKD (chronic kidney disease), stage IV: * Baseline Cr has been 3.5 - 4.0 w/ EGFR ~ 15 cc/min. Kidney function remains stable at this time * Nephrotic range proteinuria likely related to diabetic nephropathy (DM > 10 years, + retinopathy) * Serology studies including PLA2, HIV, Hep B, C3/C4/CH50 have all been normal/negative * No acute indication for METAL SPRAYER PROTECTIVE COATING at this time. Patient does appear to be responding to medical management. He is a poor dialysis candidate due to recurrent hepatic encephalopathy, medical nonadherence. If it becomes necessary, dialysis may briefly prolong his life but will not improve quality of life due to recurrent hospitalization for encephalopathy (2) Anasarca: * Albumin has risen to 3.2 with supplementation. Will stop SPA * Will reduce Furosemide to 80 mg IV q12 hours * Monitor I&O's. Target net 1000 - 1500 cc UF (3) Hyperkalemia: * Serum potassium trending down * Continue diuretic therapy started as outlined above * Coninue oral NaHCO3 once daily * Monitor PRP (4) Anemia: * Iron deficiency (iron sat 13%, ferritin 150) * Day #3 of 5 IV Venofer * SQ Epogen administered 07/22/20 (5) Liver cirrhosis: Admission and Anticipated Discharge Date Admission Date: July 21, 2020 Subjective Mr. Moreira was seen & examined in his hospital room this morning. He denied fever, angina or dyspnea Review of Systems Constitutional: no fever Eyes: no problem reported Ear, Nose, Mouth, Throat: no problem reported Respiratory: no dyspnea Cardiovascular: + edema; no chest pain Gastrointestinal: no abdominal pain, no nausea and no diarrhea/loose stools Neurologic: no dizziness Physical Exam Constitutional: not in distress Eyes: PERRL, conjunctivae normal, anicteric sclerae Neck: Thyroid: no thyromegaly Respiratory: normal respiratory effort, lungs clear to auscultation Cardiovascular: Rate/Rhythm: regular rate and regular rhythm Extremities: + edema (1+ pretibial pitting edema) Gastrointestinal (Abdomen): Inspection/Auscultation: + abdomen distended and + hypoactive bowel sounds Percussion/Palpation: + dullness to percussion and + fluid wave Neurologic: awake (oriented to self only) Genitourinary: + scrotal swelling (improved. Finn catheter remains in place) Results & Data ([facility]) Vital Signs (Past 12 Hours) Vital Signs Temp Pulse Resp BP Pulse Ox 07/25/20 08:00 72 07/25/20 06:11 72 21 157/83 H 97 07/25/20 03:52 36.8 C 07/25/20 03:50 74 19 169/82 H 96 07/25/20 03:49 74 21 159/110 H 95 07/25/20 03:09 74 18 158/105 H 96 07/25/20 01:52 77 19 173/87 H 96 07/25/20 01:10 77 23 147/91 H 96 07/25/20 00:55 76 16 180/87 H 95 07/25/20 00:01 78 14 186/86 H 94 07/25/20 00:00 36.8 C Laboratory Tests 07/24/20 07/25/20 04:59 04:43 WBC 4.24 L Hgb 8.0 L Hct 24.6 L Plt Count 114 L Sodium 143 Potassium 5.4 H Chloride 115 H Carbon Dioxide 21 BUN 73 H Creatinine 4.00 H Glucose 128 H Calcium 8.6 Albumin 3.2 L (1) Liver cirrhosis Hepatic cirrhosis type: unspecified hepatic cirrhosis Ascites presence: without ascites Qualified Code(s): K74.60 - Unspecified cirrhosis of liver
--- NOTE | 2020-07-25 11:51 | Pharmacy Report ---
Pharmacy Glycemic Sign Off Nt - Date of Service July 25, 2020 - Assessment & Plan ASSESSMENT: * Pharmacy was consulted by Kwaku Yun on 07/21 for glycemic control and to write orders per [facility] inpatient glycemic control protocol. * Patient has been receiving/requiring ~15-25 units of insulin per day for adequate glycemic control * BSGs ranging 104-190 mg/dl * Regimen has only required minor adjustments over the past 48hrs to achieve this level of control * Do not anticipate further changes in patient status that would quickly deteriorate glycemic control * Please see recommendations for outpatient antidiabetic regimen below. PLAN FOR INPATIENT GLYCEMIC CONTROL: No changes needed to current regimen. * Continue basal insulin with NPH 10 units QAM * Continue NovoLog per scale ACHS/Q6hrs while NPO * Goal range = 110-140 mg/dl * CF = 20 mg/dl/unit * CR = 1 unit for ever 6 g CHO consumed * Pharmacy is signing off of glycemic consult and will no longer be making adjustments to inpatient regimen. Please feel free to re-consult if needed. Thank you. DISCHARGE RECOMMENDATIONS: * A1c 5.4 % on 07/22- although unreliable in the setting of CKD. Patient will be returning to [facility] with hospice care. May continue outpatient regimen if not experiencing frequent lows or may transition to a looser regimen if desired by patient.
[2020-07-25] MEDS ORDERED: Nursing to Pharmacy Communication SCH (13:45)
--- NOTE | 2020-07-25 17:13 | Hospitalist Progress Note ---
Date of Service July 25, 2020 Assessment & Plan (1) Liver cirrhosis: Mr. Moreira is a 65 yo M prisoner with a PMHx of liver cirrhosis and Stage IV CKD who was admitted for volume overload, thought to be exacerbation of hepatorenal syndrome. Patient was recently admitted to [facility] for the same pathophysiology in May and was discharged back to jail on comfort care. He returned with request for further intervention. Nephrology was consulted and feels as though patient is a poor candidate for dialysis therapy, nor would it prolong or improve his quality of life. Patient was started on IV albumin and IV lasix (currently requiring 80mg IV q8h, yet still edematous on exam). Palliative consulted - ongoing goals of care discussion with patient today. Patient's goals are to be able to be with family when he dies, however this is unrealistic (per jail, family will not be able to come to infirmary, nor will patient likely be a candidate for a sympathic release from correction, as he is sentenced to life). Patient is unable to reconcile medical prognosis with his legal realities. [facility] contacted again today - nurse coordinator reported primary team was given misinformation by medical staff yesterday - jail cannot provide therapy with lasix and albumin. [facility] medical collector, Dr. Pierce returns tomorrow am - they plan to have a department meeting about Mr. Moreira. Primary team will call jail tomorrow mid-morning to touch base on plan. Liver cirrhosis: - secondary to previous Hep C infection, treated with Epclusa - History of frequent hyperammonemia and non compliance with lactulose. - Per jail, patient has been more compliant lately, ammonia level normal on admission - Previously seen by Stephanie DICKINSON during May admission. They had recommended transfer to tertiary care due to worsening kidney and liver function, however patient was not transferred due to being a poor dialysis candidate. - With his improvement in mentation this visit, Stephanie Iyer was called by the ED for transfer -- > recommend continued care at our facility - MELD score 22, which carries a 20% 3 month mortality rate - continue home rifampin CKD (chronic kidney disease), stage IV: - Baseline creatinine is 4-4.5 with GFR 13 at last discharge - creat 3.88 on admission, up to 3.94 today - patient has been deemed a poor dialysis candidate in the past due to recurrent hepatic encephalopathy and inability to comply with medical treatments - nephrology consulted, again recommending against dialysis therapy (no acute indication, patient is an overall poor candidate, not likely to prolong life or improve quality). - continue lasix 80mg IV, continue IV albumin q8h Hyperkalemia: - K 5.9 on admission, down to 5.4 - EKG without changes - given 80mg lasix, 10 units of regular insulin in ED on admission - currently on IV Lasix, 80mg, q8h - continue Valtassa per nephrology (cannot get Valtassa in jail, not on formulary) -- would appreciate recommendation from nephrology regarding alterna tive or whether we should eliminate this medication from his regimen going forward. - trend BMP Anemia - Hgb 8.0 - started on IV Venofer by nephrology (currently day 3 ) - given Epogen on 07/22 Hypoalbuminemia - level low 1.9 - secondary both to hepatic and renal failure - contributory to anasarca Metabolic acidosis: - Bicarb increased to 21 today - continue NaBicarb po 650 mg, but reduce to once daily per nephrology - trend BMP 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 - Continue nadolol Type 2 diabetes mellitus: - pharmacy glycemic consult - cause of nephropathy - A1c 5.4 on admission (however unclear if this is altered due to acute liver failure) Dispo: PCU Diet: low Na, low K, fluid restrict 1200ml DVT ppx: SQ heparin Code: Full Admission and Anticipated Discharge Date Admission Date: July 21, 2020 Supervising Physician Co-Signing Physician Notes Patient seen and examined with PGY-2 Dr Adames. Agree with history, exam findings, assessment and plan of care as outlined: In brief, Mr. Moreira is a 65 year old male with history of CKD, cirrhosis with hepatic encephalopathy, and DM admitted with hyperkalemia and generalized anasarca. Denies chest pain, palpitations, shortness of breath today. Vital signs and nursing notes reviewed. On exam, he has pitting edema to the hips and pitting edema over the abdominal wall, but slightly improved compared to yesterday. +reducible umbilical hernia. Generalized abdominal tenderness. +pitting edema over the hands and forearms bilaterally. Labs and imaging reviewed. 1. hyperkalemia. stabilized. continue tele. Continue veltessa 8.4mg daily. IV Lasix as below will also likely be helpful. Will need to get a recommendations from nephrology if there is an alternative agent to veltessa as this is not on formulary at the jail. 2. CKD stage IV with metabolic acidosis. eGFR 17. Acidosis improved. Appreciate nephrology recommendations. Continue with bicarb. Poor dialysis candidate due to historical non-adherence with lactulose precipitating worsening hepatic encephalopathy. 3. cirrhosis (Secondary to hepatitis C s/p treatment), hepatic encephalopathy, esophageal varices. No bleeding. Continue home nadalol 40m BID. Goal HR should be in the 60s. 4. Anasarca. Secondary to fluid overload from CKD and cirrhosis. Lasix 80mg IV BID + albumin. Monitor I/O's. 5. DM. glycemic consult. Appreciate recommendations. 6. Anemia. chronic. baseline hgb 9-10 in the past. No signs of bleeding. Started on venofer, s/p epogen. Appreciate palliative recommendations and assistance with goals of care for Mr. Moreira. Dispo: Dr. Adames spoke with providers at the jail again today. They are meeting as team tomorrow to discuss ability to do IV Lasix at the jail for Mr. Moreira. Hopeful they will be able to provide this care for him since he does not want to be in the hospital any longer. If not, will need to figure out if there is a facility where this can be done. They are not able to get Veltessa. We discussed care with Mr. Moreiraon the one hand, he does not want aggressive interventions, but tells us that if his heart stops, he would want CPR and if he were to need invasive respiratory support he would want that. Subjective Overnight ICU staff placed peripheral US guided IV. Patient seems to be less edematous overall today, but more comfortable and frustrated. He again clearly states he wants full resuscitation efforts if he were to code. Review of Systems Cardiovascular: + edema Physical Exam Constitutional: + ill appearing and cooperative Eyes: + anicteric sclerae ENMT: external ear and nose normal, oropharynx normal Neck: normal visual inspection and trachea midline Respiratory: normal respiratory effort; no respiratory distress and no cough Cardiovascular: RRR, no murmur, no edema Heart Sounds: normal S1 and normal S2 Extremities: + pedal edema Gastrointestinal (Abdomen): Inspection/Auscultation: + abdomen distended, normal bowel sounds and + abdominal edema (improved from yesterday) Percussion/Palpation: + abdomen tender (diffusely ) and abdomen soft; no guarding Skin: no rashes, warm and dry Psychiatric: Orientation: alert and oriented x 3 Results & Data Results & Data ([facility]) Vital Signs (Past 12 Hours) Vital Signs Temp Pulse Resp BP Pulse Ox 07/25/20 16:00 69 07/25/20 15:30 36.4 C L 07/25/20 15:28 69 14 165/94 H 07/25/20 15:13 68 15 170/94 H 96 07/25/20 08:00 72 07/25/20 07:30 36.3 C L 07/25/20 07:10 72 20 146/86 H 07/25/20 06:11 72 21 157/83 H 97 Resident Activity Tracking Resident Involvement: Resident Care Provided Care Provided: Adult Hospital Medicine (1) Liver cirrhosis Ascites presence: without ascites Hepatic cirrhosis type: unspecified hepatic cirrhosis Qualified Code(s): K74.60 - Unspecified cirrhosis of liver
[2020-07-26 05:49] LABS: BUN Creatinine Ratio 18.6 (10-20); Calcium 8.7 mg/dl (8.5-10.1); Creatinine Clr Calc Pharmacy 19.3 ml/min; Est GFR (African American) 15.6; Est GFR (Non-African American) 13.5
[2020-07-26] MEDS: INSULIN HUMAN NPH SQ SCH (08:22)
[2020-07-26] MEDS: INSULIN ASPART 100 UNITS/ML 3 ML PEN SC SCH ×3 (08:22→16:48)
[2020-07-26] MEDS: HEPARIN SOD 5,000 UNIT/0.5 ML VIAL SQ SCH (08:23)
[2020-07-26] MEDS: LACTULOSE SYRUP 20 GM/30 ML UDC PO SCH ×2 (08:23→20:46)
[2020-07-26] MEDS: nadoloL 40 MG TAB PO SCH (08:23)
[2020-07-26] MEDS: SODIUM BICARBONATE 650 MG TAB PO SCH (08:24)
[2020-07-26] MEDS: rifAXIMin 550 MG TABLET PO SCH (08:24)
[2020-07-26] MEDS: FUROSEMIDE 80 MG in SYRINGE 0 ML IV SCH (08:27)
[2020-07-26] MEDS: IRON SUCROSE 200 MG in 0.9 % SODIUM CHLORIDE 100 ML IV SCH (08:27)
[2020-07-26] MEDS: MoRPHine SULFATE CR 15 MG TABCR PO SCH (08:28)
[2020-07-26] MEDS: PATIROMER CALCIUM SORBITEX 8.4 GM PACK PO SCH (09:22)
--- NOTE | 2020-07-26 09:44 | Nephrology Progress Note ---
Date of Service July 26, 2020 Assessment & Plan (1) CKD (chronic kidney disease), stage IV: * Baseline Cr has been 3.5 - 4.0 w/ EGFR ~ 15 cc/min. Kidney function remains relatively stable at this time * Nephrotic range proteinuria likely related to diabetic nephropathy (DM > 10 years, + retinopathy) * Serology studies including PLA2, HIV, Hep B, C3/C4/CH50 have all been normal/negative * Volume status has corrected w/ albumin and IV diuretic therapy (Question reliability of I&O's, wt. Net -3 L since admission with 15 kg wt loss). Electrolyte balance is acceptable. No acute indication for BATCH UNIT TREATER at this time. Patient is a poor dialysis candidate due to recurrent hepatic encephalopathy, medical nonadherence. If dialysis becomes necessary, it may briefly prolong his life but will not improve the quality of his life due to recurrent hospitalization for encephalopathy and medical nonadherence (2) Anasarca: * Albumin has risen to 3.2 with supplementation. Albumin supplementation has been stopped * Volume status has greatly improved. Hold diuretics today * Monitor I&O's. Target net 1000 - 1500 cc UF (3) Hyperkalemia: * Serum potassium has corrected. Consider stopping Patiromer * Continue oral NaHCO3 once daily * Monitor PRP (4) Anemia: * Iron deficiency (iron sat 13%, ferritin 150) * Day #4 of 5 IV Venofer * SQ Epogen administered 07/22/20 (5) Liver cirrhosis: * Will check NH3 level * Await further input from Palliative Care (discussion w/ prision system today re: goals of care) Admission and Anticipated Discharge Date Admission Date: July 21, 2020 Subjective Mr. Moreira was seen & examined in his hospital room this morning. He was awake but confused. His speech is slurred and difficult to understand Review of Systems Review of Systems: Unobtainable due to cognitive status Physical Exam Constitutional: + ill appearing; not in distress Eyes: + anicteric sclerae ENMT: external ear and nose normal, oropharynx normal Neck: normal visual inspection and trachea midline Respiratory: normal respiratory effort; no respiratory distress and no cough Cardiovascular: Rate/Rhythm: regular rate and regular rhythm Extremities: no pedal edema Gastrointestinal (Abdomen): Inspection/Auscultation: normal bowel sounds; abdomen not distended Percussion/Palpation: no guarding Psychiatric: Orientation: + not oriented to place, + not oriented to time and + uncooperative Results & Data ([place]) Vital Signs (Past 12 Hours) Vital Signs Temp Pulse Pulse Resp BP BP Pulse Ox 07/26/20 08:14 36.7 C 67 21 151/77 H 07/26/20 08:00 67 17 07/26/20 07:00 68 21 07/26/20 04:00 36.5 C 68 14 143/84 H 99 Laboratory Tests 07/26/20 04:52 Sodium 144 Potassium 5.0 Chloride 115 H Carbon Dioxide 21 BUN 80 H Creatinine 4.27 H Glucose 120 H PG Care Time/CCT Total # of Minutes Spent Total Time Spent with Patient: Total time spent is greater than 50% in coordination of care (as documented) at patient's floor/unit and/or counseling patient: Coding Level of Care Code 96064 Subseq Hosp Care Lvl 3 Diagnoses CKD (chronic kidney disease), stage IV N18.4 Anasarca R60.1 Hyperkalemia E87.5 Anemia D64.9 Liver cirrhosis K74.60 Hepatic cirrhosis type: unspecified hepatic cirrhosis Ascites presence: without ascites (1) Liver cirrhosis Hepatic cirrhosis type: unspecified hepatic cirrhosis Ascites presence: without ascites Qualified Code(s): K74.60 - Unspecified cirrhosis of liver
--- NOTE | 2020-07-26 14:41 | Hospitalist Progress Note ---
Date of Service July 26, 2020 Assessment & Plan (1) Liver cirrhosis: Mr. Moreira is a 65 yo M prisoner with a PMHx of liver cirrhosis and Stage IV CKD who was admitted for volume overload, thought to be exacerbation of hepatorenal syndrome. Patient was recently admitted to [facility] for the same pathophysiology in May and was discharged back to group home on comfort care. He returned with request for further intervention. Nephrology was consulted and feels as though patient is a poor candidate for dialysis therapy, nor would it prolong or improve his quality of life. Patient was started on IV albumin and IV lasix (currently requiring 80mg IV q8h, yet still edematous on exam). Palliative consulted - ongoing goals of care discussion with patient today. Patient's goals are to be able to be with family when he dies, however this is unrealistic (per group home, family will not be able to come to infirmary, nor will patient likely be a candidate for a sympathic release from longterm, as he is sentenced to life). Patient is unable to reconcile medical prognosis with his legal realities. Shelter contacted again today - nurse coordinator reported primary team was given misinformation by medical staff yesterday - group home cannot provide therapy with lasix and albumin. Shelter medical assisting instructor, Dr. Pierce returns tomorrow am - they plan to have a department meeting about Mr. Moreira. Primary team will call group home tomorrow mid-morning to touch base on plan. Liver cirrhosis: - secondary to previous Hep C infection, treated with Epclusa - History of frequent hyperammonemia and non compliance with lactulose. - Per group home, patient has been more compliant lately, ammonia level normal on admission - Previously seen by Stephanie DICKINSON during May admission. They had recommended transfer to tertiary care due to worsening kidney and liver function, however patient was not transferred due to being a poor dialysis candidate. - With his improvement in mentation this visit, Stephanie Iyer was called by the ED for transfer -- > recommend continued care at our facility - MELD score 22, which carries a 20% 3 month mortality rate - continue home rifampin CKD (chronic kidney disease), stage IV: - Baseline creatinine is 4-4.5 with GFR 13 at last discharge - creat 3.88 on admission, up to 3.94 today - patient has been deemed a poor dialysis candidate in the past due to recurrent hepatic encephalopathy and inability to comply with medical treatments - nephrology consulted, again recommending against dialysis therapy (no acute indication, patient is an overall poor candidate, not likely to prolong life or improve quality). - continue lasix 80mg IV, continue IV albumin q8h Hyperkalemia: - K 5.9 on admission, down to 5.3 - EKG without changes - given 80mg lasix, 10 units of regular insulin in ED on admission - currently on IV Lasix, 80mg, q8h - continue Valtassa per nephrology (cannot get Valtassa in group home, not on formulary) - trend BMP Anemia - Hgb 8.0 - started on IV Venofer by nephrology (currently day 3 ) - given Epogen on 07/22 Hypoalbuminemia - level low 1.9 - secondary both to hepatic and renal failure - contributory to anasarca Metabolic acidosis: - Bicarb increased to 21 today - continue NaBicarb po 650 mg, but reduce to once daily per nephrology - trend BMP 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 - Continue nadolol Type 2 diabetes mellitus: - pharmacy glycemic consult - cause of nephropathy - A1c 5.4 on admission (however unclear if this is altered due to acute liver failure) Dispo: PCU Diet: low Na, low K, fluid restrict 1200ml DVT ppx: SQ heparin Code: Full Admission and Anticipated Discharge Date Admission Date: July 21, 2020 Physical Exam Constitutional: + ill appearing and cooperative Eyes: + anicteric sclerae ENMT: external ear and nose normal, oropharynx normal Neck: normal visual inspection and trachea midline Respiratory: normal respiratory effort; no respiratory distress and no cough Cardiovascular: RRR, no murmur, no edema Heart Sounds: normal S1 and normal S2 Extremities: + pedal edema Gastrointestinal (Abdomen): Inspection/Auscultation: + abdomen distended, normal bowel sounds and + abdominal edema (improved from yesterday) Percussion/Palpation: + abdomen tender (diffusely ) and abdomen soft; no guarding Skin: no rashes, warm and dry Psychiatric: Orientation: alert and oriented x 3 Results & Data Results & Data ([facility]) Vital Signs (Past 12 Hours) Vital Signs Temp Pulse Pulse Resp BP BP Pulse Ox 07/26/20 11:38 36.9 C 71 16 160/73 H 95 07/26/20 08:14 36.7 C 67 21 151/77 H 07/26/20 08:00 67 17 07/26/20 07:00 68 21 07/26/20 04:00 36.5 C 68 14 143/84 H 99 Resident Activity Tracking Resident Involvement: Resident Care Provided Care Provided: Adult Hospital Medicine (1) Liver cirrhosis Hepatic cirrhosis type: unspecified hepatic cirrhosis Ascites presence: without ascites Qualified Code(s): K74.60 - Unspecified cirrhosis of liver
--- NOTE | 2020-07-26 16:53 | Hospitalist Progress Note ---
Date of Service July 26, 2020 Assessment & Plan (1) Liver cirrhosis: Mr. Moreira is a 65 yo M prisoner with a PMHx of liver cirrhosis and Stage IV CKD who was admitted for volume overload, thought to be exacerbation of hepatorenal syndrome. Patient was recently admitted to [facility] for the same pathophysiology in May and was discharged back to [facility] on comfort care. He returned with request for further intervention. Nephrology was consulted and feels as though patient is a poor candidate for dialysis therapy, nor would it prolong or improve his quality of life. Patient was started on IV albumin and IV lasix (currently requiring 80mg IV q8h, yet still edematous on exam). Palliative consulted - ongoing goals of care discussion with patient today. Patient's goals are to be able to be with family when he dies, however this is unrealistic (per [facility], family will not be able to come to infirmary, nor will patient likely be a candidate for a sympathic release from senior living, as he is sentenced to life). Patient is unable to reconcile medical prognosis with his legal realities. Primary team had several extensive discussions with [facility] today regarding Mr. Moreira. Plan is to continue current care until primary team can reach CURLY Moreira (brother of patient) to formally obtain consent to change patient's code status to DNR/DNI and transition him to hospice care at the [facility]. Liver cirrhosis: - secondary to previous Hep C infection, treated with Epclusa - History of frequent hyperammonemia and non compliance with lactulose. - Per [facility], patient has been more compliant lately, ammonia level normal on admission - Previously seen by Stephanie DICKINSON during May admission. They had recommended transfer to tertiary care due to worsening kidney and liver function, however patient was not transferred due to being a poor dialysis candidate. - With his improvement in mentation this visit, Stephanie Iyer was called by the ED for transfer -- > recommend continued care at our facility - MELD score 22, which carries a 20% 3 month mortality rate - continue home rifampin CKD (chronic kidney disease), stage IV: - Baseline creatinine is 4-4.5 with GFR 13 at last discharge - creat 3.88 on admission, up to 3.94 today - patient has been deemed a poor dialysis candidate in the past due to recurrent hepatic encephalopathy and inability to comply with medical treatments - nephrology consulted, again recommending against dialysis therapy (no acute indication, patient is an overall poor candidate, not likely to prolong life or improve quality). - continue lasix 80mg IV, continue IV albumin q8h Hyperkalemia: - K 5.9 on admission, down to 5.3 - EKG without changes - given 80mg lasix, 10 units of regular insulin in ED on admission - currently on IV Lasix, 80mg, q8h - continue Valtassa per nephrology (cannot get Valtassa in [facility], not on formulary) - trend BMP Anemia - Hgb 8.0 - started on IV Venofer by nephrology (currently day 3 ) - given Epogen on 07/22 Hypoalbuminemia - level low 1.9 - secondary both to hepatic and renal failure - contributory to anasarca Metabolic acidosis: - Bicarb increased to 21 today - continue NaBicarb po 650 mg, but reduce to once daily per nephrology - trend BMP 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 Adames. In agreement with the documented findings as noted in the resident documentation with any exceptions or additions as noted here. 65 y/o male h/o cirrhosis and CKD IV with hepatorenal syndrome Minimally responsive and nonverbal at time of examination, which per s/o team is intermittently the case 2/2 hepatic encephalopathy and is becoming more common this week. On examination, S1/S2 nl RRR no MCG. Decreased BS at bilateral bases. Abd distended BS+ve. Cirrhosis with hepatic encephalopathy and hepatorenal syndrome in the setting of CKD IV - palliative and nephrology consultation - increasing creatinine on current intensity of IV diuresis with improved ascites/fluid overload. Per conversations with palliative care, patient wishes to have comfort directed care but maintains desire for full code. Has been transitioned to DNR by POA in the past during protracted episodes of hepatic encephalopathy with worsening clinical condition. Intent of goals of care conversation with POA without improvement in mental status with goal of DNR/DNI and hospice transition in hospital with eventual discharge. Extensive conversation today (45 minutes) with [facility] facility medical device assembler and administration - patient cannot be transferred to [facility] on hospice without DNR/DNI and cannot receive DNR/DNI in that facility without 2 hospital physician evaluation, the earliest of which will be Wednesday. For now, will continue IV diuresis with intent to transition to PO diuresis with stable Cr or d/c with increasing Cr and transition to hospice following discussion with POA. Else medical management as noted above. Subjective no acute events overnight. Primary team had extensive phone conversations with [facility] today regarding Mr. Moreira - plan is to send him back to [facility] on Sunday 07/29 for hospice services. Review of Systems Cardiovascular: + edema Physical Exam Constitutional: + ill appearing Eyes: + anicteric sclerae ENMT: external ear and nose normal, oropharynx normal Neck: normal visual inspection and trachea midline Respiratory: normal respiratory effort, lungs clear to auscultation Cardiovascular: RRR, no murmur, no edema Extremities: + edema Gastrointestinal (Abdomen): Inspection/Auscultation: normal bowel sounds and + abdominal edema Results & Data Results & Data ([facility]) Vital Signs (Past 12 Hours) Vital Signs Temp Pulse Pulse Resp BP BP BP 07/26/20 15:00 36.8 C 69 18 148/72 H 07/26/20 11:38 36.9 C 71 16 160/73 H 07/26/20 08:14 36.7 C 67 21 151/77 H 07/26/20 08:00 67 17 07/26/20 07:00 68 21 Pulse Ox 07/26/20 15:00 07/26/20 11:38 95 07/26/20 08:14 07/26/20 08:00 07/26/20 07:00 Resident Activity Tracking Resident Involvement: Resident Care Provided Care Provided: Adult Hospital Medicine (1) Liver cirrhosis Ascites presence: without ascites Hepatic cirrhosis type: unspecified hepatic cirrhosis Qualified Code(s): K74.60 - Unspecified cirrhosis of liver
[2020-07-26] MEDS ORDERED: LORazepam 0.5 MG/1 ML VIAL IV PRN ×2 (18:26→18:55)
[2020-07-26] MEDS ORDERED: MoRPHine SULFATE 2 MG/ML CARP IV PRN (18:26)
[2020-07-26] MEDS ORDERED: LORazepam 0.5 MG TAB PO PRN ×2 (18:26→18:55)
[2020-07-26] MEDS ORDERED: ONDANSETRON 4 MG OD TAB SL PRN ×2 (18:26→18:55)
[2020-07-26] MEDS ORDERED: haloperidoL 1 MG TAB PO PRN (18:26)
[2020-07-26] MEDS ORDERED: ATROPINE SULFATE 1% OP SOLN 2 ML BTL SL PRN ×2 (18:26→18:55)
[2020-07-26] MEDS ORDERED: GLYCOPYRROLATE 0.2 MG/ML VIAL IV PRN ×2 (18:26→18:55)
[2020-07-26] MEDS ORDERED: ONDANSETRON INJ 2 MG/ML 2 ML VIAL IV PRN (18:26)
[2020-07-26] MEDS ORDERED: ACETAMINOPHEN 325 MG TAB PO PRN (18:55)
[2020-07-26] MEDS ORDERED: MoRPHine SULFATE 5 MG/0.25 ML UDP PO PRN (18:55)
--- NOTE | 2020-07-26 19:13 | Communication Note ---
Date of Service: July 26, 2020 This evening myself and Dr. Christianson contacted patient's brother Tramaine to update him on Chicho's care. Tramaine stated that Chicho would NOT want aggressive, life sustaining care if health outcomes were futile. Marley said Chicho would want comfort directed care, which was consistent with Chicho's previously stated wishes when he was able to clearly communicate with healthcare providers. Marley confirmed Chicho would not want to be intubated or resuscitated under his current circumstances. Chicho was transitioned to comfort care and code status was changed from full to DNR/DNI, per family's wishes.
[2020-07-27] MEDS: LACTULOSE SYRUP 20 GM/30 ML UDC PO SCH ×2 (20:14→20:15)
[2020-07-28] MEDS: LACTULOSE SYRUP 20 GM/30 ML UDC PO SCH ×3 (09:45→21:48)
--- NOTE | 2020-07-28 12:44 | Hospitalist Progress Note ---
Date of Service July 28, 2020 Assessment & Plan (1) Liver cirrhosis: Mr. Moreira is a 65 yo M prisoner with a PMHx of liver cirrhosis and Stage IV CKD who was admitted for volume overload, secondary to an exacerbation of hepatorenal syndrome. Patient was recently admitted to [facility] for the same pathophysiology in May and was discharged back to [facility] on comfort care. He returned with request for further intervention. Nephrology was consulted and feels as though patient is a poor candidate for dialysis therapy, nor would it prolong or improve his quality of life. Initially, patient started on IV albumin and IV lasix (requiring as much as 80mg IV q8h) to improve his volume status. Palliative consulted for goals of care discussion. Patient's goals are to be able to be with family when he dies, however this is unrealistic (per [facility], family will not be able to come to infirmary, nor will patient likely be a candidate for a companionate release from [facility], as he is sentenced to life imprisonment. Patient is unable to reconcile medical prognosis with his legal realities. Primary team had several extensive discussions with [facility] over the past several days regarding Mr. Rivera - now that he has transitioned to comfort care and his code status is DNR/DNI, he can be transferred back to the [facility] on 07/29/20 for hospice services. Liver cirrhosis: - secondary to previous Hep C infection, treated with Epclusa - History of frequent hyperammonemia and non compliance with lactulose - Per [facility], patient has been more compliant lately, ammonia level normal on admission - Previously seen by Stephanie DICKINSON during May admission. They had recommended transfer to tertiary care due to worsening kidney and liver function, however patient was not transferred due to being a poor dialysis candidate. - MELD score 22, which carries a 20% 3 month mortality rate - comfort care as above CKD (chronic kidney disease), stage IV: - Baseline creatinine is 4-4.5 with GFR 13 at last discharge - creat 3.88 on admission, up to 4.2 with IV lasix - patient has been deemed a poor dialysis candidate in the past due to recurrent hepatic encephalopathy and inability to comply with medical treatments - nephrology consulted, again recommending against dialysis therapy (no acute indication, patient is an overall poor candidate, not likely to prolong life or improve quality). 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 Adames. In agreement with the documented findings as noted in the resident documentation with any exceptions or additions as noted here. 65 y/o male h/o cirrhosis and CKD IV with hepatorenal syndrome Arousable to voice but with somnolence preventing meaningful interaction at present. No complaint of pain or apparent discomfort. On examination, S1/S2 nl RRR no MCG. Decreased BS at bilateral bases. Abd distended/tense but stable, BS+ve. Cirrhosis with hepatic encephalopathy and hepatorenal syndrome in the setting of CKD IV - palliative and nephrology consultation - continue symptom management and comfort measures. DNR/DNI. Pending dispo to [facility] for resumption of hospice status tomorrow. Discussed with Dr. Pierce previously - hospice in facility necessitates DNR/DNI status (now obtained through discussion w/ both patient and POA) and 2 physician in facility certification, hence the delay until 07.29.2020 at earliest. Else see resident documentation as noted. Subjective Currently on comfort care. Patient was mentating well on exam today - he affirmed that he wants comfort directed care without life sustaining measures. When discussing his code status, he confirms that he would not want resuscitation or intubation. He is aware he will be discharged back to the [facility] tomorrow for home hospice services. Review of Systems Cardiovascular: + edema Physical Exam Constitutional: + ill appearing Eyes: + anicteric sclerae ENMT: external ear and nose normal, oropharynx normal Neck: normal visual inspection and trachea midline Respiratory: normal respiratory effort, lungs clear to auscultation Cardiovascular: RRR, no murmur, no edema Extremities: + edema (improved from previous exam) Gastrointestinal (Abdomen): Inspection/Auscultation: normal bowel sounds and + abdominal edema Psychiatric: Orientation: alert, oriented to person, oriented to place and oriented to time Resident Activity Tracking Resident Involvement: Resident Care Provided Care Provided: Adult Hospital Medicine (1) Liver cirrhosis Ascites presence: without ascites Hepatic cirrhosis type: unspecified hepatic cirrhosis Qualified Code(s): K74.60 - Unspecified cirrhosis of liver
[2020-07-29] MEDS: LACTULOSE SYRUP 20 GM/30 ML UDC PO SCH (07:51)
--- NOTE | 2020-07-29 10:30 | Discharge Summary ---
Date of Service July 29, 2020 Admission HPI Per Admitting Provider Mr. Moreira presents today from [facility] due to fluid overload. He had previously been discharged on comfort care to the skilled nursing on 06/20. He has been more compliant with his lacutulose regimen and is mentating well enough to request further treatment rather than comfort care. He presents due to significant fluid overload and feeling he is having a difficult time speaking. He is somewhat short of breath, no chest pain, no aches, chills, fever, n/v/d/, no dysuria though he is incontinent due to significant swelling in his penis and scrotum. Principal Diagnosis Liver Cirrhosis Discharge Exam Constitutional + altered mental status, + behavioral limitations and + physical limitations Eyes + anicteric sclerae Neck normal visual inspection and trachea midline Respiratory normal respiratory effort, lungs clear to auscultation Cardiovascular Rate/Rhythm: regular rate and regular rhythm Heart Sounds: no gallop, no murmur and no cardiac rub Gastrointestinal (Abdomen) Inspection/Auscultation: + abdomen distended Percussion/Palpation: + abdomen tender, abdomen soft, + ascites and + fluid wave; no guarding and abdomen not rigid Discharge Data Allergies Allergy/AdvReac Type Severity Reaction Status Date / Time No Known Drug Allergies Allergy NKDA Unverified 07/21/20 10:59 Consultations 07/21/20 17:40 ED Decision to Admit Stat 07/21/20 20:15 Consult Case Management - Discharge Planning Routine Consult Nephrology Routine Consult Palliative Care Routine 07/26/20 18:26 Consult Case Management - Discharge Planning Routine Hospital Course (1) Liver cirrhosis: Mr. Moreira is a 65 yo M prisoner with a PMHx of liver cirrhosis and Stage IV CKD who was admitted for volume overload, secondary to an exacerbation of hepatorenal syndrome. Patient was recently admitted to [facility] for the same pathophysiology in May and was discharged back to skilled nursing on comfort care. He returned with request for further intervention. Nephrology was consulted and feels as though patient is a poor candidate for dialysis therapy, nor would it prolong or improve his quality of life. Liver cirrhosis: - secondary to previous Hep C infection, treated with Epclusa - Per skilled nursing, patient has been more compliant with lactulose lately, ammonia level normal on admission - MELD score 22, which carries a 20% 3 month mortality rate - Palliative consulted for goals of care discussion: Patient's goals are to be able to be with family when he dies, however, per skilled nursing family will not be able to come to [facility], nor will patient likely be a candidate for a compassionate release from longterm, as he is sentenced to life imprisonment. - discharged with comfort care measures - continue Lactulose daily for reduction of hepatic encephalopathy contributions DVT ppx: on comfort care Code: DNR/DNI Total Time Total Time Spent Total Time Spent (In Minutes): <30 Discharge Plan Discharge Items [facility] Reason For Visit: FLUID OVERLOAD,CKD Discharge Diagnosis: Liver and Kidney failure Condition on Discharge: Fair Activity: Resume your previous activity Non-emergency contact: Primary Care Provider Call non-emergency contact if: your symptoms worsen Follow-up/Referrals: Irais POE [Primary Care Provider] - Diet: Regular Addtl Attending Provider Instructions: Mr. Moreira is being discharged back to skilled nursing on hospice care due to his advanced stage Liver cirrhosis. Pending Studies at Discharge: No Stand-Alone Forms: [facility] Patient informed of condition?: Yes Discharge Level of Care: Other Communicable Disease: No Discharge Prognosis: Other Lines: None Urinary Catheter: No Medications and DC Order Prescriptions: Continued lactulose 10 gram/15 mL Solution 20 g PO TID PRN (Reason: Constipation) RF: 0 Discontinued acetaminophen [Tylenol] 325 mg Tablet 650 mg PO Q8H PRN (Reason: Pain) RF: 0 Novolin R Flexpen 100 unit/mL (3 mL) Insulin Pen 0 unit SUBCUT .SLIDINGSCALE PRN (Reason: See rx directions) RF: 0 Novolin 70-30 FlexPen U-100 100 unit/mL (70-30) Insulin Pen 30 unit SUBCUT QAM RF: 0 Xifaxan 550 mg Tablet 550 mg PO BID RF: 0 spironolactone 25 mg Tablet 25 mg PO BID RF: 0 nadolol 40 mg Tablet 40 mg PO BID RF: 0 morphine 10 mg Capsule,Extend.Release Pellets 10 mg PO QAM RF: 0 Discharge Orders: Discharge Order (Routine); Ordered 07/29/20 Ordered By: Bo Black Admission Data Admit Date/Time: 07/21/20 17:57 Attending Provider: Emile Lester Admit Provider: Trevon Asif Primary Care Provider: Irais POE Other Providers: Trevon Asif ; Gerber Arce ; Chandni Dawson ; Ernesto Christianson Other Interventions: Discharge Summary Assessment (RN) Last Done: 07/29/20 14:41 Supervising Physician Co-Signing Physician Notes I personally examined the patient and verified all avelar points of history and exam, discussed case, and agree with decision making with Dr Black. seems ok - no meaningful HPI or ROS from pt. guards note he's mostly been sleepy and comfortable. vitals noted nad heent nc at mmm breathing unlabored no accessory muscle good effort skin no rashes no pallor or icterus cirrhosis, hepatic encephalopathy - for hospice, stable to dc under hospice care otherwise as above Resident Activity Tracking Resident Involvement: Resident Care Provided Care Provided: Adult Hospital Medicine
--- NOTE | 2020-07-29 18:10 | Billing Data ---
Date of Service July 29, 2020 Coding Level of Care Code D/C Day Management <30 mins
== END 2020-07-29 17:56 | DRG 441 ==
LOC: ED 10:16 → 1E 17:57 → SUATTDRO 17:57 → 1E 18:34 → 3W 07-26 19:39

== ENCOUNTER 2020-08-21 04:17 | Observation (INO) ==
[2020-08-21] MEDS ORDERED: DEXAMETHASONE SOD INJ 10 MG/ML VIAL IV ONE (04:30)
[2020-08-21] MEDS ORDERED: diphenhydrAMINE 50 MG/ML VIAL IV STA (04:30)
[2020-08-21 04:47] LABS: Basophils # (auto) 0.01 K/uL (0-0.2); Basophils % (auto) 0.2 %; Eosinophils # (auto) 0.12 K/uL (0-0.5); Eosinophils % (auto) 2.6 %; Hematocrit (blood only) 23.1 % (42-52); Hemoglobin 7.5 g/dL (14.0-18.0); Immature Granulocytes # (auto) 0.01 K/uL (0.00-0.02); Immature Granulocytes % (auto) 0.2 %; Lymphocytes # (auto) 0.51 K/uL (1.2-3.4); Lymphocytes % (auto) 11.2 %; Mean Corpuscular Hemoglobin 33.2 pg (25-34); Mean Corpuscular Hgb Conc 32.5 g/dL (32-36); Mean Corpuscular Volume 102.2 fL (80-100); Mean Platelet Volume 10.6 fL (7.4-10.4); Monocytes # (auto) 0.62 K/uL (0.11-0.59); Monocytes % (auto) 13.7 %; Neutrophils # (auto) 3.27 K/uL (1.4-6.5); Neutrophils % (auto) 72.1 %; Platelet Count 106 K/uL (130-400); RDW Standard Deviation 63.9 fL (36.4-46.3); Red Blood Count 2.26 M/uL (4.7-6.1); White Blood Count 4.54 K/uL (4.8-10.8)
--- NOTE | 2020-08-21 04:58 | Emergency Department Note ---
History of Present Illness General Chief complaint: Facial Injury/Pain Stated complaint: FACIAL SWELLING/ALTERED MENTAL STATUS Time Seen by Provider: 08/21/20 04:27 Source: patient Mode of arrival: EMS Limitations: altered mental status History of Present Illness This patient is a 65-year-old male who presents to the emergency department via EMS from [facility] for evaluation of increased swelling. The patient has a history of cirrhosis, end-stage liver disease and end-stage renal disease. He is not on dialysis as it was decided that he would not be a candidate for dialysis and this would not prolong his life. He was admitted here last month and was discharged back to the assisted on comfort measures only. According to the nurse at the [facility], the patient has been doing fairly well after returning to the assisted and taking his lactulose regularly and has refused to sign an advanced directive making him comfort measures only. For this reason, the order was changed and the patient is now a full code. Per [facility] staff, the patient has had swelling in his face over the past few days. They were unsure whether this was due to fluid retention or an allergic reaction. Patient has not been started on any new medications, does not take any NSAIDs or GENNY inhibitors. He has been receiving Benadryl and prednisone and seemed to have some improvement initially, although symptoms worsened this evening. Patient has difficulty speaking due to the swelling and is hard to understand. He does follow commands appropriately. Mental status is difficult to fully assess. Home Medications Medication Instructions Recorded Confirmed Type lactulose 20 g PO TID PRN 06/28/20 08/21/20 History bumetanide [Bumex] 1 mg PO DAILY 08/21/20 08/21/20 History insulin NPH and regular human 30 unit SUBCUT QAM 08/21/20 08/21/20 History [Novolin 70/30 U-100 Insulin] insulin regular human [Novolin R 1 sliding scale dose SUBCUT 08/21/20 08/21/20 History Regular U-100 Insuln] USEASDIRECTD levalbuterol tartrate [Xopenex HFA] 2 inh INHALATION QID 08/21/20 08/21/20 History nadolol 40 mg PO BID 08/21/20 08/21/20 History rifaximin [Xifaxan] 550 mg PO BID 12/30/20 12/30/20 History spironolactone 100 mg PO DAILY 08/21/20 08/21/20 History witch beulah-glycerin (hamamel) 1 pad TOPICAL TID PRN 08/21/20 08/21/20 History [Tucks] zinc oxide 1 applic TOPICAL BID 08/21/20 08/21/20 History Allergies Allergy/AdvReac Type Severity Reaction Status Date / Time No Known Drug Allergies Allergy NKDA Unverified 08/21/20 05:38 Past Med/Surg History Medical History Acute hepatic encephalopathy Acute kidney injury Allergic rhinitis Anemia, unspecified Chronic kidney disease, unspecified Confusion Esophageal varices without bleeding Flatulence GERD (gastroesophageal reflux disease) HCV (hepatitis C virus) Treated Hyperlipidemia Hypertension Liver cirrhosis Low back pain Metabolic acidosis Microscopic hematuria Onychomycosis Palliative care encounter Partial small bowel obstruction Proteinuria Pruritus, unspecified Type 2 diabetes mellitus Umbilical hernia without obstruction or gangrene Social History Smoking Status: Former smoker Hx Alcohol Use: No Hx Substance Use: No Preferred Language: Guyanese Communication Ability: Effective [employer] Required: No Beliefs That Will Affect Care: None Current Living Situation: Other Current Living Situation Comment: [facility] Feels Safe at Home: Yes Assistive Devices: Walker Review of Systems A total of 10 systems reviewed and were otherwise negative Physical Exam Vital Signs Vital Signs - 24 hr 08/21/20 04:17 08/21/20 04:30 08/21/20 05:45 Temperature 36.6 C Temperature Source Oral Pulse Rate 70 72 72 Respiratory Rate 16 19 15 Blood Pressure 177/109 H 191/100 H Blood Pressure Mean 131 115 Pulse Oximetry 98 100 98 Oxygen Delivery Method Room Air Room Air Room Air Sepsis Recent Fever Within 48 Hours No Sepsis New/Unexplained Change in Mental Status No Sepsis Action Taken by Nursing No Action Required VITALS: Vitals are noted on the nurse's note and reviewed by myself. GENERAL: This is a 65-year-old chronically unwell appearing male. SKIN: The skin was without rashes. EARS: External auditory canals clear, tympanic membranes pearly mcelroy without erythema or effusion bilaterally. EYES: Periorbital edema noted bilaterally. Chemosis noted. Patient unable to open his eyes due to swelling. MOUTH: Mucous membranes moist. Lips appear edematous. No tongue swelling. NECK: Supple without nuchal rigidity. HEART: Regular rate and rhythm without murmurs gallops or rubs. LUNGS: Lung sounds diminished throughout. ABDOMEN: Distended abdomen, umbilical hernia noted. No tenderness to palpation. EXTREMITIES: Pitting edema extending up bilateral thighs. NEURO: Patient is difficult to understand, does follow most commands appropriately. Patient attempts to answer questions but is incredibly difficult to understand. Course Consultations Consultation #1: Dr. Trey EDDY hospitalist Administered Medications Discontinued Medications Dexamethasone (Dexamethasone Sod Inj 10 Mg/Ml Vial) 10 mg IV NOW ONE Stop: 08/21/20 04:31 Last Admin: 08/21/20 04:35 Dose: 10 mg Documented by: [id number] Diphenhydramine HCl (Diphenhydramine 50 Mg/Ml Vial) 25 mg IV NOW STA Stop: 08/21/20 04:31 Last Admin: 08/21/20 04:35 Dose: 25 mg Documented by: [id number] Medical Decision Making Differential Diagnosis Differential diagnoses include angioedema, allergic reaction, anasarca, renal failure, infection, electrolyte imbalance, among others. Home Medications Current Medication List: was personally reviewed by me Laboratory Data Attestation: I reviewed the patient's lab results. Result diagrams: 08/21/20 04:40 08/21/20 04:40 Lab Results 08/21/20 08/21/20 08/21/20 Range/Units 04:38 04:38 04:40 WBC (4.8-10.8) K/uL RBC (4.7-6.1) M/uL Hgb (14.0-18.0) g/dL Hct (42-52) % MCV (80-100) fL MCH (25-34) pg MCHC (32-36) g/dL RDW Std Deviation (36.4-46.3) fL RDW Coeff of Kianna (11.5-14.5) % Plt Count (130-400) K/uL MPV (7.4-10.4) fL Immature Gran % (Auto) % Neut % (Auto) % Lymph % (Auto) % [place] % (Auto) % Eos % (Auto) % Baso % (Auto) % Neut # (Auto) (1.4-6.5) K/uL Lymph # (Auto) (1.2-3.4) K/uL [place] # (Auto) (0.11-0.59) K/uL Eos # (Auto) (0-0.5) K/uL Baso # (Auto) (0-0.2) K/uL Immature Gran # (Auto) (0.00-0.02) K/uL RBC Morphology PT (9.0-12.0) Seconds INR (0.9-1.1) APTT (21.0-31.0) Seconds PTT Ratio Sodium (136-145) mmol/L Potassium (3.5-5.1) mmol/L Chloride (98-107) mmol/L Carbon Dioxide (21-32) mmol/L Anion Gap (3-11) BUN (7-18) mg/dl Creatinine (0.6-1.4) mg/dl Est Cr Clr Drug Dosing ml/min Est GFR ( Amer) Est GFR (Non-Af Amer) BUN/Creatinine Ratio (10-20) Glucose (70-99) mg/dl Calcium (8.5-10.1) mg/dl Magnesium (1.8-2.4) mg/dl Total Bilirubin (0.2-1) mg/dl AST (15-37) U/L ALT (12-78) U/L Alkaline Phosphatase (45-117) U/L Ammonia 66.0 H (11-32) umol/L Troponin I (0-0.045) ng/ml Total Protein (6.4-8.2) gm/dl Albumin (3.4-5.0) gm/dl Globulin (2.5-4.0) gm/dl Albumin/Globulin Ratio (0.9-2) COVID-19 Eval Order Covid19 [facility] SARS-CoV-2, RNA, NAAT NEGATIVE (NEGATIVE) 08/21/20 08/21/20 08/21/20 Range/Units 04:40 04:40 04:40 WBC 4.54 L (4.8-10.8) K/uL RBC 2.26 L (4.7-6.1) M/uL Hgb 7.5 L (14.0-18.0) g/dL Hct 23.1 L (42-52) % MCV 102.2 H (80-100) fL MCH 33.2 (25-34) pg MCHC 32.5 (32-36) g/dL RDW Std Deviation 63.9 H (36.4-46.3) fL RDW Coeff of Kianna 17.0 H (11.5-14.5) % Plt Count 106 L (130-400) K/uL MPV 10.6 H (7.4-10.4) fL Immature Gran % (Auto) 0.2 % Neut % (Auto) 72.1 % Lymph % (Auto) 11.2 % [place] % (Auto) 13.7 % Eos % (Auto) 2.6 % Baso % (Auto) 0.2 % Neut # (Auto) 3.27 (1.4-6.5) K/uL Lymph # (Auto) 0.51 L (1.2-3.4) K/uL [place] # (Auto) 0.62 H (0.11-0.59) K/uL Eos # (Auto) 0.12 (0-0.5) K/uL Baso # (Auto) 0.01 (0-0.2) K/uL Immature Gran # (Auto) 0.01 (0.00-0.02) K/uL RBC Morphology Unremarkable PT 12.4 H (9.0-12.0) Seconds INR 1.2 H (0.9-1.1) APTT 34.1 H (21.0-31.0) Seconds PTT Ratio 1.2 Sodium 143 (136-145) mmol/L Potassium 4.1 (3.5-5.1) mmol/L Chloride 117 H (98-107) mmol/L Carbon Dioxide 20 L (21-32) mmol/L Anion Gap 6.0 (3-11) BUN 67 H (7-18) mg/dl Creatinine 2.98 H (0.6-1.4) mg/dl Est Cr Clr Drug Dosing 27.7 ml/min Est GFR ( Amer) 24.2 Est GFR (Non-Af Amer) 20.9 BUN/Creatinine Ratio 22.5 H (10-20) Glucose 243 H (70-99) mg/dl Calcium 7.9 L (8.5-10.1) mg/dl Magnesium 2.2 (1.8-2.4) mg/dl Total Bilirubin 0.6 (0.2-1) mg/dl AST 31 (15-37) U/L ALT 26 (12-78) U/L Alkaline Phosphatase 189 H (45-117) U/L Ammonia (11-32) umol/L Troponin I < 0.015 (0-0.045) ng/ml Total Protein 7.5 (6.4-8.2) gm/dl Albumin 2.3 L (3.4-5.0) gm/dl Globulin 5.2 H (2.5-4.0) gm/dl Albumin/Globulin Ratio 0.4 L (0.9-2) COVID-19 Eval Order SARS-CoV-2, RNA, NAAT (NEGATIVE) Imaging Data Attestation: I personally reviewed and interpreted this imaging study as follows: My Impression: CHEST 1 VIEW: Cardiomegaly, mild congestive changes. ECG Data Attestation: I personally reviewed and interpreted this ECG as follows: Indication: + weakness Rate (beats per minute): 70 Rhythm: + normal sinus ECG Intervals/blocks: + Normal QRS ECG ST segments: + Normal ST segments Change: no significant change MDM Narrative This patient is a 65-year-old male who presents to the emergency department via EMS for evaluation of facial swelling. Patient is chronically ill with liver failure and end-stage renal disease. Patient has difficulty communicating, unclear whether this is just due to the swelling or if there is an element of he patic encephalopathy. He was sent here for facial swelling. It is unclear whether this is due to anasarca or an allergic reaction/angioedema, however patient did seem to have improvement with dexamethasone and Benadryl indicating there may be an element of angioedema or allergic reaction. Patient's labs consistent with his chronic liver and renal disease, creatinine elevated at 2.98, pancytopenia and minimal elevation of his INR. Patient had an admission here last month and was sent home on comfort measures, although apparently this has recently been changed and patient is now a full code. The patient's case was discussed with the [facility] hospitalist service, who agreed to evaluate the patient for further care. Impression & Plan Facial edema, Chronic renal insufficiency, Confusion, Anasarca Discharge Plan Visit Data Chief Complaint: Facial Injury/Pain Stated Complaint: FACIAL SWELLING/ALTERED MENTAL STATUS ED Provider: Kyrie Green ED Midlevel Provider: Kayla Anderson Discharge Problem: Facial edema, Chronic renal insufficiency, Confusion, Anasarca Forms Stand Alone Forms: My [facility] [place] Prescriptions Prescriptions: No Action lactulose 10 gram/15 mL Solution 20 g PO TID PRN (Reason: Constipation) RF: 0 Tucks Pads, Medicated 1 pad TOPICAL TID PRN (Reason: Hemorrhoids) RF: 0 spironolactone 100 mg Tablet 100 mg PO DAILY RF: 0 bumetanide [Bumex] 1 mg Tablet 1 mg PO DAILY RF: 0 nadolol 40 mg Tablet 40 mg PO BID RF: 0 zinc oxide Cream 1 applic TOPICAL BID RF: 0 Xifaxan 550 mg Tablet 550 mg PO BID RF: 0 Novolin 70/30 U-100 Insulin 100 unit/mL (70-30) Suspension 30 unit SUBCUT QAM RF: 0 Novolin R Regular U-100 Insuln 100 unit/mL Solution 1 sliding scale dose SUBCUT USEASDIRECTD RF: 0 levalbuterol tartrate [Xopenex HFA] 45 mcg/actuation Hfa Aerosol Inhaler 2 inh INHALATION QID RF: 0 Discharge Problem: Chronic renal insufficiency Qualifiers: Chronic kidney disease stage: unspecified stage Qualified Code(s): N18.9 - Chronic kidney disease, unspecified
[2020-08-21 05:01] LABS: INR 1.2 (0.9-1.1); Partial Thromboplastin Ratio 1.2; Partial Thromboplastin Time 34.1 Seconds (21.0-31.0); Prothrombin Time 12.4 Seconds (9.0-12.0)
[2020-08-21 05:06] LABS: Alanine Aminotransferase 26 U/L (12-78); Albumin Level 2.3 gm/dl (3.4-5.0); Aspartate Aminotransferase 31 U/L (15-37); BUN Creatinine Ratio 22.5 (10-20); Blood Urea Nitrogen 67 mg/dl (7-18); Calcium 7.9 mg/dl (8.5-10.1); Carbon Dioxide 20 mmol/L (21-32); Chloride 117 mmol/L (98-107); Creatinine Clr Calc Pharmacy 27.7 ml/min; Est GFR (African American) 24.2; Est GFR (Non-African American) 20.9; Glucose 243 mg/dl (70-99); Magnesium 2.2 mg/dl (1.8-2.4); Potassium 4.1 mmol/L (3.5-5.1); Sodium 143 mmol/L (136-145)
[2020-08-21 05:11] LABS: Albumin Globulin Ratio 0.4 (0.9-2); Alkaline Phosphatase 189 U/L (45-117); Bilirubin,Total 0.6 mg/dl (0.2-1); Globulin 5.2 gm/dl (2.5-4.0); Total Protein 7.5 gm/dl (6.4-8.2); Troponin I < 0.015 ng/ml (0-0.045)
[2020-08-21 05:20] LABS: RBC Morphology Unremarkable
--- NOTE | 2020-08-21 05:36 | Emergency Department Note ---
ED Visit Note Physician Evaluation Note: I have personally evaluated and examined this patient. I agree with assessment and plan of Kayla Anderson PA-C. Worsening anasarca vs angioedema over last few days. Suspect likely progression of disease/hepatorenal failure rather than overt allergic reaction. Will bring in for further management. Kyrie Green MD : Chronic renal insufficiency Qualifiers: Chronic kidney disease stage: unspecified stage Qualified Code(s): N18.9 - Chronic kidney disease, unspecified
--- NOTE | 2020-08-21 06:08 | History & Physical Report ---
Date of Service August 21, 2020 Assessment & Plan (1) Anasarca: 65yo male with history of cirrhosis of the liver secondary to HCV, hepatorenal syndrome presenting with worsening anasarca - bilateral LE edema as well as facial edema. Patient's liver and kidney numbers appear to be near base line to slightly improved from prior. -Check TSH, BNP, UA for proteinuria - history of nephrotic range proteinuria -Check lipid panel -Change Bumex to 1mg IV daily -Continue Spironolactone 100mg po daily -Closely monitor renal function and electrolytes -I/Os and daily weights Present on Admission?: Yes (2) Confusion: Increased somnolence. Etiology unclear. Ammonia level mildly increased at 66. ?Hepatic encephalopathy. Patient afebrile, HD stable, does not seem to have an infection at this time -Continue Rifaximin -Lactulose TID PRN - titrate to 2-3 soft bowel movements -Frequent orientation Present on Admission?: Yes (3) Chronic kidney disease: Thought to be secondary to HRS. Patient's renal function is improved from prior, BUN=67, Cr=2.98 -Avoid nephrotoxic agents -Renal dosing where needed -Careful monitoring of renal function with IV Bumex use Present on Admission?: Yes (4) Hypertension: Blood pressure elevated at 177/109 -Continue Nadolol and Spironolactone for cirrhosis -Monitor blood pressure Present on Admission?: Yes (5) Liver cirrhosis: Patient with MELD=19 correlating with 6% 3 month mortality. His liver numbers, overall are stable to somewhat improved from prior. Not a transplant candidate -Continue home medications, Bumex, Spironolactone, Nadolol -Continue Rifaximin and lactulose -Avoid hepatotoxic agents Present on Admission?: Yes (6) Esophageal varices without bleeding: Stable H/H, no report of melena/hematochezia -Continue nadolol 40mg po BID Present on Admission?: Yes (7) Hyperlipidemia: Patient not on statin therapy at present -Check lipid panel, ?nephrotic syndrome -Statin if markedly elevated Present on Admission?: Yes (8) Type 2 diabetes mellitus: Chronic. Elevated blood sugar today at 243 -NPH 10u qAM -ISS -Goal blood sugar 110 - 140 -Patient NPO for now, may advance diet as mental status improves F/E/N - Diuresis with Bumex 1mg IV daily, montior electrolytes, NPO for now given poor mental status Ppx - low risk for DVT Code - Full at this time. As above, this should be addressed in more detail with patient when mental status improves. Dispo - Admit to medical Present on Admission?: Yes History of Present Illness Chief Complaint: Anasarca Primary Care Provider: DEEPIKA Braxton Chicho Moreira is a 65 yo male presenting with progressive edema of the face and bilateral LEs. Patient is unable to provide history of events prior to admission due to AMS. History obtained through discussion with ER and chart review. Patient has a history of HCV s/p treatment with Epclusa, Cirrhosis with varices, hepatorenal syndrome, hepatic encephalopathy on Lactulose and Rifaximin. He presents with worsening facial edema which started on the left face and progressed to the right as well as worsening bilateral LE edema ongoing x 2 days. No additional complaints per chart review. No new medications or dose changes ER Course: Dexamethasone 10mg IV, Benadryl 25mg IV Allergies Allergy/AdvReac Type Severity Reaction Status Date / Time No Known Drug Allergies Allergy NKDA Unverified 08/21/20 05:38 Home Medications Medication Instructions Recorded Confirmed Type lactulose 20 g PO TID PRN 06/28/20 08/21/20 History bumetanide [Bumex] 1 mg PO DAILY 08/21/20 08/21/20 History insulin NPH and regular human 30 unit SUBCUT QAM 08/21/20 08/21/20 History [Novolin 70/30 U-100 Insulin] insulin regular human [Novolin R 1 sliding scale dose SUBCUT 08/21/20 08/21/20 History Regular U-100 Insuln] USEASDIRECTD levalbuterol tartrate [Xopenex HFA] 2 inh INHALATION QID 08/21/20 08/21/20 History nadolol 40 mg PO BID 08/21/20 08/21/20 History rifaximin [Xifaxan] 550 mg PO BID 08/21/20 08/21/20 History spironolactone 100 mg PO DAILY 08/21/20 08/21/20 History witch beulah-glycerin (hamamel) 1 pad TOPICAL TID PRN 08/21/20 08/21/20 History [Tucks] zinc oxide 1 applic TOPICAL BID 08/21/20 08/21/20 History Past Med/Surg History Medical History Acute hepatic encephalopathy Acute kidney injury Allergic rhinitis Anemia, unspecified Chronic kidney disease, unspecified Confusion Esophageal varices without bleeding Flatulence GERD (gastroesophageal reflux disease) HCV (hepatitis C virus) Treated Hyperlipidemia Hypertension Liver cirrhosis Low back pain Metabolic acidosis Microscopic hematuria Onychomycosis Palliative care encounter Partial small bowel obstruction Proteinuria Pruritus, unspecified Type 2 diabetes mellitus Umbilical hernia without obstruction or gangrene Social History Smoking Status: Former smoker Hx Alcohol Use: No Hx Substance Use: No Preferred Language: Swedish Communication Ability: Effective Railroad Wheels 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 Axles 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 Required: No Beliefs That Will Affect Care: None Current Living Situation: Other Current Living Situation Comment: DEEPIKA Braxton Feels Safe at Home: Yes Assistive Devices: Walker Review of Systems Review of Systems: Unobtainable due to cognitive status Physical Exam Physical Exam: General: patient somnolent, opens eyes to voice and follows simple commands, grunts in response to some questions but no comprehensible words Skin: warm, small weeping abrasion on RLE with dressing in place HEENT: NC/AT, Pupils small, reactive bilaterally, anicteric sclera, ocular chemosis on left eye, conjunctiva without injection, external ear normal to inspection and nontender, nares patent, dentition intact, no oropharyngeal lesions, neck supple, trachea midline, no LAD, no thyromegaly, no JVD Heart: +S1/S2, regular, no m/r/g Lungs: sonorous breath sounds, no wheezes/crackles Abd: obese, soft, mildly distended, reducible umbilical hernia, +BS Ext: warm, 2+ pulses in UE/LE bilaterally, 2+ pitting edema of bilateral LE to knees Neuro: somnolent, briefly arouses to verbal and tactile stimuli then falls back to sleep, follows some commands, moving all extremities Results & Data Results & Data ([facility]) Vital Signs (Past 12 Hours) Vital Signs Temp Pulse Resp BP Pulse Ox 08/21/20 05:45 72 15 191/100 H 98 08/21/20 04:30 72 19 100 08/21/20 04:17 36.6 C 70 16 177/109 H 98 Laboratory Results Lab Results 08/21/20 08/21/20 08/21/20 Range/Units 04:38 04:38 04:40 WBC (4.8-10.8) K/uL RBC (4.7-6.1) M/uL Hgb (14.0-18.0) g/dL Hct (42-52) % MCV (80-100) fL MCH (25-34) pg MCHC (32-36) g/dL RDW Std Deviation (36.4-46.3) fL RDW Coeff of Kianna (11.5-14.5) % Plt Count (130-400) K/uL MPV (7.4-10.4) fL Immature Gran % (Auto) % Neut % (Auto) % Lymph % (Auto) % Douglas % (Auto) % Eos % (Auto) % Baso % (Auto) % Neut # (Auto) (1.4-6.5) K/uL Lymph # (Auto) (1.2-3.4) K/uL Douglas # (Auto) (0.11-0.59) K/uL Eos # (Auto) (0-0.5) K/uL Baso # (Auto) (0-0.2) K/uL Immature Gran # (Auto) (0.00-0.02) K/uL RBC Morphology PT (9.0-12.0) Seconds INR (0.9-1.1) APTT (21.0-31.0) Seconds PTT Ratio Sodium (136-145) mmol/L Potassium (3.5-5.1) mmol/L Chloride (98-107) mmol/L Carbon Dioxide (21-32) mmol/L Anion Gap (3-11) BUN (7-18) mg/dl Creatinine (0.6-1.4) mg/dl Est Cr Clr Drug Dosing ml/min Est GFR ( Amer) Est GFR (Non-Af Amer) BUN/Creatinine Ratio (10-20) Glucose (70-99) mg/dl Calcium (8.5-10.1) mg/dl Magnesium (1.8-2.4) mg/dl Total Bilirubin (0.2-1) mg/dl AST (15-37) U/L ALT (12-78) U/L Alkaline Phosphatase (45-117) U/L Ammonia 66.0 H (11-32) umol/L Troponin I (0-0.045) ng/ml Total Protein (6.4-8.2) gm/dl Albumin (3.4-5.0) gm/dl Globulin (2.5-4.0) gm/dl Albumin/Globulin Ratio (0.9-2) COVID-19 Eval [facility] SARS-CoV-2, RNA, NAAT NEGATIVE (NEGATIVE) 08/21/20 08/21/20 08/21/20 Range/Units 04:40 04:40 04:40 WBC 4.54 L (4.8-10.8) K/uL RBC 2.26 L (4.7-6.1) M/uL Hgb 7.5 L (14.0-18.0) g/dL Hct 23.1 L (42-52) % MCV 102.2 H (80-100) fL MCH 33.2 (25-34) pg MCHC 32.5 (32-36) g/dL RDW Std Deviation 63.9 H (36.4-46.3) fL RDW Coeff of Kianna 17.0 H (11.5-14.5) % Plt Count 106 L (130-400) K/uL MPV 10.6 H (7.4-10.4) fL Immature Gran % (Auto) 0.2 % Neut % (Auto) 72.1 % Lymph % (Auto) 11.2 % Douglas % (Auto) 13.7 % Eos % (Auto) 2.6 % Baso % (Auto) 0.2 % Neut # (Auto) 3.27 (1.4-6.5) K/uL Lymph # (Auto) 0.51 L (1.2-3.4) K/uL Douglas # (Auto) 0.62 H (0.11-0.59) K/uL Eos # (Auto) 0.12 (0-0.5) K/uL Baso # (Auto) 0.01 (0-0.2) K/uL Immature Gran # (Auto) 0.01 (0.00-0.02) K/uL RBC Morphology Unremarkable PT 12.4 H (9.0-12.0) Seconds INR 1.2 H (0.9-1.1) APTT 34.1 H (21.0-31.0) Seconds PTT Ratio 1.2 Sodium 143 (136-145) mmol/L Potassium 4.1 (3.5-5.1) mmol/L Chloride 117 H (98-107) mmol/L Carbon Dioxide 20 L (21-32) mmol/L Anion Gap 6.0 (3-11) BUN 67 H (7-18) mg/dl Creatinine 2.98 H (0.6-1.4) mg/dl Est Cr Clr Drug Dosing 27.7 ml/min Est GFR ( Amer) 24.2 Est GFR (Non-Af Amer) 20.9 BUN/Creatinine Ratio 22.5 H (10-20) Glucose 243 H (70-99) mg/dl Calcium 7.9 L (8.5-10.1) mg/dl Magnesium 2.2 (1.8-2.4) mg/dl Total Bilirubin 0.6 (0.2-1) mg/dl AST 31 (15-37) U/L ALT 26 (12-78) U/L Alkaline Phosphatase 189 H (45-117) U/L Ammonia (11-32) umol/L Troponin I < 0.015 (0-0.045) ng/ml Total Protein 7.5 (6.4-8.2) gm/dl Albumin 2.3 L (3.4-5.0) gm/dl Globulin 5.2 H (2.5-4.0) gm/dl Albumin/Globulin Ratio 0.4 L (0.9-2) COVID-19 Eval Order SARS-CoV-2, RNA, NAAT (NEGATIVE) Diagnostic Findings CXR - by my interpretation - appears to have cardiomegaly and increased bilateral airspace disease when compared to prior, ?increased pulmonary vasculature ECG Additional Comments: Study shows NSR at 70 bpm, normal axis, JM=451, QRS=82, IRw=778. No acute ischemic changes Code Status & VTE Plan Code Status Patient has been Full Code, DNR/DNI and Comfort Measures in the past. Most recent hospitalization earlier this month he was Comfort Care. However, by history, upon return to the skilled nursing he wanted to be made Full Code. Unable to have meaningful conversation with patient at this time due to AMS/Somnolence. Patient Full Code at this time as that was his last wish. Should be readdressed when mental status improves. PG Care Time/CCT Total # of Minutes Spent Total Time Spent with Patient: Total time spent is greater than 50% in coordination of care (as documented) at patient's floor/unit and/or counseling patient: Coding Level of Care Code 73359 Initial Inpt Care Lvl 3 Diagnoses Anasarca R60.1 Confusion R41.0 Chronic kidney disease N18.5 Chronic kidney disease stage: stage 5, not on chronic dialysis Hypertension I10 Hypertension type: essential hypertension Liver cirrhosis K74.60 Ascites presence: without ascites Hepatic cirrhosis type: unspecified hepatic cirrhosis Esophageal varices without bleeding I85.00 Esophageal varices type: unspecified type Hyperlipidemia E78.5 Hyperlipidemia type: unspecified Type 2 diabetes mellitus E11.9; Z79.4 Diabetes mellitus complication status: without complication Diabetes mellitus intermediate insulin use: with termite control technician use (1) Type 2 diabetes mellitus Diabetes mellitus complication status: without complication Diabetes mellitus intermediate insulin use: with intermediate use Qualified Code(s): E11.9 - Type 2 diabetes mellitus without complications; Z79.4 - ocean transportation intermediary (current) use of insulin (2) Hyperlipidemia Hyperlipidemia type: unspecified Qualified Code(s): E78.5 - Hyperlipidemia, unspecified (3) Liver cirrhosis Ascites presence: without ascites Hepatic cirrhosis type: unspecified hepatic cirrhosis Qualified Code(s): K74.60 - Unspecified cirrhosis of liver (4) Chronic kidney disease Chronic kidney disease stage: stage 5, not on chronic dialysis Qualified Code(s): N18.5 - Chronic kidney disease, stage 5 (5) Esophageal varices without bleeding Esophageal varices type: unspecified type Qualified Code(s): I85.00 - Esophageal varices without bleeding (6) Hypertension Hypertension type: essential hypertension Qualified Code(s): I10 - Essential (primary) hypertension
--- NOTE | 2020-08-21 07:32 | XRay Report ---
SINGLE VIEW CHEST CLINICAL HISTORY: Dyspnea. FINDINGS: An AP, portable, upright chest radiograph is compared to study dated 07/21/2020. The examin ation is degraded by portable technique and apical lordotic positioning. The heart is enlarged. There is pulmonary vascular congestion. Bilateral perihilar airspace opacities are observed. No large pleu ral effusion or pneumothorax is seen. The skeletal structures are osteopenic. The bony thorax is angela sly intact. IMPRESSION: 1. Cardiomegaly with evidence of congestive failure. 2. Perihilar airspace opacities likely represent interstitial edema. Correlate clinically for signs o f a superimposed infectious/inflammatory pneumonitis. ACT 112: Negative or not required by law. Electronically signed by: Juan Antonio Gibbs M.D. 08/21/2020 7:31 AM
[2020-08-21] MEDS ORDERED: INSULIN ASPART 100 UNITS/ML 3 ML PEN SC SCH ×2 (07:49→12:00)
[2020-08-21] MEDS ORDERED: CARBOHYDRATES FOR HYPOGLYCEMIA PO PRN (07:49)
[2020-08-21] MEDS ORDERED: GLUCOSE 10 TABS/TUBE PO PRN (07:49)
[2020-08-21] MEDS ORDERED: DEXTROSE 50% 50 ML SYRINGE IV PRN (07:49)
[2020-08-21] MEDS ORDERED: GLUCAGON FOR INJ 1 MG VIAL SQ PRN (07:49)
[2020-08-21] MEDS ORDERED: ACETAMINOPHEN 325 MG TAB PO PRN (07:49)
[2020-08-21] MEDS ORDERED: GLUCOSE 40% GEL 15 GM TUBE PO PRN (07:49)
[2020-08-21] MEDS ORDERED: ONDANSETRON INJ 2 MG/ML 2 ML VIAL IV PRN (07:49)
[2020-08-21] MEDS ORDERED: LACTULOSE SYRUP 20 GM/30 ML UDC PO PRN (08:03)
--- NOTE | 2020-08-21 08:17 | Hospitalist Progress Note ---
Date of Service August 21, 2020 Assessment & Plan (1) Anasarca: 65yo male with history of cirrhosis of the liver secondary to HCV, hepatorenal syndrome presenting with worsening anasarca - bilateral LE edema as well as facial edema. Patient's liver and kidney numbers appear to be near base line to slightly improved from prior. -Check TSH, BNP, UA for proteinuria - history of nephrotic range proteinuria -Check lipid panel -Change Bumex to 1mg IV daily -Continue Spironolactone 100mg po daily -Closely monitor renal function and electrolytes -I/Os and daily weights (2) Confusion: Increased somnolence. Etiology unclear. Ammonia level mildly increased at 66. ?Hepatic encephalopathy. Patient afebrile, HD stable, does not seem to have an infection at this time -Continue Rifaximin -Lactulose TID PRN - titrate to 2-3 soft bowel movements -Frequent orientation (3) Chronic kidney disease: Thought to be secondary to HRS. Patient's renal function is improved from prior, BUN=67, Cr=2.98 -Avoid nephrotoxic agents -Renal dosing where needed -Careful monitoring of renal function with IV Bumex use (4) Hypertension: Blood pressure elevated at 177/109 -Continue Nadolol and Spironolactone for cirrhosis -Monitor blood pressure (5) Liver cirrhosis: Patient with MELD=19 correlating with 6% 3 month mortality. His liver numbers, overall are stable to somewhat improved from prior. Not a transplant candidate -Continue home medications, Bumex, Spironolactone, Nadolol -Continue Rifaximin and lactulose -Avoid hepatotoxic agents (6) Esophageal varices without bleeding: Stable H/H, no report of melena/hematochezia -Continue nadolol 40mg po BID (7) Hyperlipidemia: Patient not on statin therapy at present -Check lipid panel, ?nephrotic syndrome -Statin if markedly elevated (8) Type 2 diabetes mellitus: Chronic. Elevated blood sugar today at 243 -NPH 10u qAM -ISS -Goal blood sugar 110 - 140 -Patient NPO for now, may advance diet as mental status improves F/E/N - Diuresis with Bumex 1mg IV daily, montior electrolytes, NPO for now given poor mental status Ppx - low risk for DVT Code - Full at this time. As above, this should be addressed in more detail with patient when mental status improves. Dispo - Admit to medical Admission and Anticipated Discharge Date Admission Date: August 21, 2020 Results & Data Results & Data ([facility]) Vital Signs (Past 12 Hours) Vital Signs Temp Pulse Pulse Resp BP BP Pulse Ox 08/21/20 07:01 74 22 164/103 H 95 08/21/20 06:23 74 25 H 191/88 H 100 08/21/20 05:45 72 15 191/100 H 98 08/21/20 04:30 72 19 100 08/21/20 04:17 97.9 F 70 16 177/109 H 98 PG Care Time/CCT Total # of Minutes Spent Total Time Spent with Patient: Total time spent is greater than 50% in coordination of care (as documented) at patient's floor/unit and/or counseling patient: Coding Diagnoses Anasarca R60.1 Confusion R41.0 Chronic kidney disease N18.5 Chronic kidney disease stage: stage 5, not on chronic dialysis Hypertension I10 Hypertension type: essential hypertension Liver cirrhosis K74.60 Hepatic cirrhosis type: unspecified hepatic cirrhosis Ascites presence: without ascites Esophageal varices without bleeding I85.00 Esophageal varices type: unspecified type Hyperlipidemia E78.5 Hyperlipidemia type: unspecified Type 2 diabetes mellitus E11.9; Z79.4 Diabetes mellitus snf insulin use: with snf use Diabetes mellitus complication status: without complication (1) Chronic kidney disease Chronic kidney disease stage: stage 5, not on chronic dialysis Qualified Code(s): N18.5 - Chronic kidney disease, stage 5 (2) Hypertension Hypertension type: essential hypertension Qualified Code(s): I10 - Essential (primary) hypertension (3) Liver cirrhosis Hepatic cirrhosis type: unspecified hepatic cirrhosis Ascites presence: without ascites Qualified Code(s): K74.60 - Unspecified cirrhosis of liver (4) Esophageal varices without bleeding Esophageal varices type: unspecified type Qualified Code(s): I85.00 - Esophageal varices without bleeding (5) Hyperlipidemia Hyperlipidemia type: unspecified Qualified Code(s): E78.5 - Hyperlipidemia, unspecified (6) Type 2 diabetes mellitus Diabetes mellitus storage battery inspector insulin use: with storage battery inspector use Diabetes mellitus complication status: without complication Qualified Code(s): E11.9 - Type 2 diabetes mellitus without complications; Z79.4 - hospital librarian (current) use of insulin
[2020-08-21 08:22] LABS: Thyroid Stimulating Hormone 2.29 uIu/ml (0.300-4.500)
--- NOTE | 2020-08-21 08:34 | Hospitalist Progress Note ---
Date of Service August 21, 2020 Assessment & Plan (1) Anasarca: 65yo male with history of cirrhosis of the liver secondary to HCV, hepatorenal syndrome presenting with worsening anasarca - bilateral LE edema as well as facial edema. Patient's liver and kidney numbers appear to be near base line to slightly improved from prior. -Check TSH, BNP, UA for proteinuria - history of nephrotic range proteinuria -Lipid panel ok -Change Bumex to 1mg IV daily -Continue Spironolactone 100mg po daily - currently mental status worse and unable to take oral medications - will convert to IV or UT for now. -Closely monitor renal function and electrolytes -I/Os and daily weights -Paracentesis, send fluid for diagnostic study -Obtain BCx - one set peripherally, place ultrasound guided peripheral line and get second BC from this site as unable to get 2 peripheral lines. (2) Confusion: Increased somnolence. Etiology unclear. Ammonia level mildly increased at 66. ?Hepatic encephalopathy. Patient afebrile, HD stable, does not seem to have an infection at this time -Continue Rifaximin once able to take PO -Lactulose TID enemas for now as unable to take PO- titrate to 2-3 soft bowel movements -Frequent orientation -BCx x 2 today, has not received any antibiotics yet -Diagnostic paracentesis as above (3) Chronic kidney disease: Thought to be secondary to Hepatorenal syndrome. Patient's renal function is improved from prior, BUN=67, Cr=2.98 -Avoid nephrotoxic agents -Renal dosing where needed - Follow BMP with IV Bumex use (4) Hypertension: Blood pressure elevated at 164/103 -Continue Nadolol and Spironolactone for cirrhosis- held this morning as unable to take PO, hopeful that paracentesis will help reduce BP, consider alternative nonselective BB if BP remains high later today, pt may need to be placed on tele. (5) Liver cirrhosis: Patient with MELD=19 correlating with 6% 3 month mortality. His liver numbers, overall are stable to somewhat improved from prior. Not a transplant candidate -Continue home medications, Bumex, Spironolactone, Nadolol as above -Continue Rifaximin and lactulose as above -Avoid hepatotoxic agents (6) Esophageal varices without bleeding: Stable H/H, no report of melena/hematochezia -Continue nadolol 40mg BID as above (7) Hyperlipidemia: - lipid panel reviewed, cholesterol 111, DHL 40, LDL 51, no need for statin (8) Type 2 diabetes mellitus: Chronic. Elevated blood sugar today at 243 on admission -NPH 10u qAM -ISS -Goal blood sugar 110 - 140 -Patient NPO for now, may advance diet as mental status improves F/E/N - Diuresis with Bumex 1mg IV daily, monitor electrolytes, NPO for now given poor mental status, meds transitioned to IV and UT for now. Ppx - low risk for DVT Code - Full at this time. As above, pt previously was on comfort care earlier this fall however then refused it once back at the snf. Will need to readdress once mental status improves. Dispo - Admit to medical, likely to remain in hospital x 2 days Admission and Anticipated Discharge Date Admission Date: August 21, 2020 Subjective The patient was seen and examined this morning. Pt is able to tell me in a muffled voice that he is in the hospital, lab is currently attempting blood culture but he is a very hard stick, pt reacts to pain. He is unable to provide me with any other specific history. Guards at bedside report that he previously was on comfort care however after hospitalization in May he refused this. He is full code. Review of Systems Review of Systems: Unobtainable due to cognitive status Physical Exam Physical Exam: General: awakens to verbal and painful stimuli, alert, no apparent distress, +obese, volume overloaded Head: Normocephalic, atraumatic ENT: PERRL, EOMI, no pharyngeal exudate, mucous membranes slightly dry, foam at the sides of the mouth Chest: Diminished throughout, on room air, no adventitious breath sounds Cardiac: distant heart sounds, Regular rate and rhythm, no murmur, + JVD, normal peripheral pulses, good capillary refill Abdominal: + abdominally obese, NABS x 4 quadrants, + umbilical hernia reduc ible, +anasarca, + distended, nontender to palpation, no rebound or guarding Extremities: + pitting edema ble +2, left lateral leg ulceration weeping, right ant tibial leg ulceration weeping, no peripheral erythema, calfs nontender to palpation Neuro: AAO x 3, strength intact bilaterally and rated 5/5, no motor deficits, speech is clear, no peripheral sensory deficits Results & Data Results & Data ([facility]) Vital Signs (Past 12 Hours) Vital Signs Temp Pulse Pulse Resp BP BP Pulse Ox 08/21/20 07:01 74 22 164/103 H 95 08/21/20 06:23 74 25 H 191/88 H 100 08/21/20 05:45 72 15 191/100 H 98 08/21/20 04:30 72 19 100 08/21/20 04:17 36.6 C 70 16 177/109 H 98 PG Care Time/CCT Total # of Minutes Spent Total Time Spent with Patient: Total time spent is greater than 50% in coordination of care (as documented) at patient's floor/unit and/or counseling patient: Coding Level of Care Code None Diagnoses Anasarca R60.1 Confusion R41.0 Chronic kidney disease N18.5 Chronic kidney disease stage: stage 5, not on chronic dialysis Hypertension I10 Hypertension type: essential hypertension Liver cirrhosis K74.60 Ascites presence: without ascites Hepatic cirrhosis type: unspecified hepatic cirrhosis Esophageal varices without bleeding I85.00 Esophageal varices type: unspecified type Hyperlipidemia E78.5 Hyperlipidemia type: unspecified Type 2 diabetes mellitus E11.9; Z79.4 Diabetes mellitus complication status: without complication Diabetes mellitus health promotion officer insulin use: with health promotion officer use (1) Type 2 diabetes mellitus Diabetes mellitus complication status: without complication Diabetes mellitus health promotion officer insulin use: with fdc use Qualified Code(s): E11.9 - Type 2 diabetes mellitus without complications; Z79.4 - virtual recruiter (current) use of insulin (2) Hyperlipidemia Hyperlipidemia type: unspecified Qualified Code(s): E78.5 - Hyperlipidemia, unspecified (3) Liver cirrhosis Ascites presence: without ascites Hepatic cirrhosis type: unspecified hepatic cirrhosis Qualified Code(s): K74.60 - Unspecified cirrhosis of liver (4) Chronic kidney disease Chronic kidney disease stage: stage 5, not on chronic dialysis Qualified Code(s): N18.5 - Chronic kidney disease, stage 5 (5) Esophageal varices without bleeding Esophageal varices type: unspecified type Qualified Code(s): I85.00 - Esophageal varices without bleeding (6) Hypertension Hypertension type: essential hypertension Qualified Code(s): I10 - Essential (primary) hypertension
[2020-08-21] MEDS: LEVALBUTEROL TARTRATE 15 GM HFA.AER.AD INH SCH ×5 (09:16→19:44)
[2020-08-21] MEDS: nadoloL 40 MG TAB PO SCH ×2 (09:35→20:17)
[2020-08-21] MEDS: SPIRONOLACTONE 100 MG TAB PO SCH (09:35)
[2020-08-21] MEDS: rifAXIMin 550 MG TABLET PO SCH ×2 (09:35→20:18)
[2020-08-21] MEDS: BUMETANIDE 1 MG in SYRINGE 0 ML IV SCH ×2 (09:39→17:24)
[2020-08-21] MEDS ORDERED: ACETAMINOPHEN 650 MG SUPP PR PRN (10:05)
[2020-08-21] MEDS ORDERED: Nursing to Pharmacy Communication SCH ×2 (10:15→16:30)
--- NOTE | 2020-08-21 10:40 | Ultrasound Report ---
US abdomen ltd ascites CLINICAL HISTORY: encephalopathy, possible spontaneous bacterial peritonitis COMPARISON STUDY: CT scan dated 06/28/2020 FINDINGS: The patient was referred for diagnostic paracentesis. Ultrasound the abdomen reveal scant ascitic fluid with no pocket large enough for safe diagnostic par acentesis. IMPRESSION: 1. Scant ascites, insufficient for diagnostic paracentesis. ACT 112: Negative or not required by law. Electronically signed by: Bryan Tolliver M.D. 08/21/2020 10:38 AM
[2020-08-21] MEDS: INSULIN HUMAN NPH SC SCH (11:03)
[2020-08-21] MEDS ORDERED: LACTULOSE 200 GM, WATER, STERILE IRRIG 700 ML, BARCODE IDENTIFIER 1 EA PR SCH (12:00)
[2020-08-21] MEDS ORDERED: UNIT DOSE COMPOUND PR SCH (12:00)
[2020-08-21 12:22] LABS: Appearance Urine Clear (Clear); Bacteria Urine Automated Negative (Negative); Bilirubin Urine Negative (Negative); Blood Urine 1+ (Negative); Color Urine Yellow; Glucose Urine UA Trace (Negative); Ketones Urine Negative (Negative); Leukocyte Esterase Urine Negative (Negative); Nitrite Urine Negative (Negative); Protein Urine 3+ (Negative); RBC Urine Automated 0-4 /hpf (0-4); Urobilinogen Urine Negative (Negative)
--- NOTE | 2020-08-21 14:51 | Electrocardiogram Report ---
Test Reason : Blood Pressure : / mmHG Vent. Rate : 070 BPM Atrial Rate : 070 BPM P-R Int : 136 ms QRS Dur : 082 ms QT Int : 436 ms P-R-T Axes : 060 032 -16 degrees QTc Int : 470 ms Normal sinus rhythm Nonspecific ST abnormality When compared with ECG of 22-JUL-2020 08:24, Nonspecific T wave abnormality, improved in Lateral leads Confirmed by Benito Ahmadi ([id number]) on 08/21/2020 2:51:41 PM Referred By: Irais SCI Confirmed By:Dominick Ahmadi
[2020-08-21] MEDS: INSULIN ASPART 100 UNITS/ML 3 ML PEN SC SCH ×2 (17:21→20:54)
[2020-08-22 07:00] LABS: Hematocrit (blood only) 23.3 % (42-52); Hemoglobin 7.4 g/dL (14.0-18.0); Immature Granulocytes # (auto) 0.01 K/uL (0.00-0.02); Immature Granulocytes % (auto) 0.2 %; Lymphocytes # (auto) 0.64 K/uL (1.2-3.4); Lymphocytes % (auto) 10.1 %; Mean Corpuscular Hemoglobin 32.3 pg (25-34); Mean Corpuscular Hgb Conc 31.8 g/dL (32-36); Mean Corpuscular Volume 101.7 fL (80-100); Mean Platelet Volume 10.6 fL (7.4-10.4); Monocytes # (auto) 0.51 K/uL (0.11-0.59); Neutrophils # (auto) 5.19 K/uL (1.4-6.5); Neutrophils % (auto) 81.7 %; Platelet Count 100 K/uL (130-400); RDW Coefficient of Variation 17.2 % (11.5-14.5); RDW Standard Deviation 63.6 fL (36.4-46.3); Red Blood Count 2.29 M/uL (4.7-6.1); White Blood Count 6.35 K/uL (4.8-10.8)
[2020-08-22 07:23] LABS: RBC Morphology Unremarkable
[2020-08-22] MEDS: LEVALBUTEROL TARTRATE 15 GM HFA.AER.AD INH SCH (07:27)
[2020-08-22 07:29] LABS: Albumin Level 2.3 gm/dl (3.4-5.0); BUN Creatinine Ratio 24.5 (10-20); Bilirubin Direct 0.2 mg/dl (0-0.2); Calcium 8.3 mg/dl (8.5-10.1); Creatinine Clr Calc Pharmacy 27.6 ml/min; Est GFR (African American) 24.1; Est GFR (Non-African American) 20.8; Potassium 4.2 mmol/L (3.5-5.1)
[2020-08-22 07:32] LABS: Bilirubin,Total 0.6 mg/dl (0.2-1); Total Protein 7.1 gm/dl (6.4-8.2)
[2020-08-22] MEDS: rifAXIMin 550 MG TABLET PO SCH (08:02)
[2020-08-22] MEDS: SPIRONOLACTONE 100 MG TAB PO SCH (08:02)
[2020-08-22] MEDS: nadoloL 40 MG TAB PO SCH (08:03)
--- NOTE | 2020-08-22 08:34 | Hospitalist Progress Note ---
Date of Service August 22, 2020 Assessment & Plan (1) Anasarca: 65yo male with history of cirrhosis of the liver secondary to HCV, hepatorenal syndrome presenting with worsening anasarca - bilateral LE edema as well as facial edema. Patient's liver and kidney numbers appear to be near base line to slightly improved from prior. -Change Bumex to 1mg IV daily -Continue Spironolactone 100mg po daily -Obtain BCx - urine culture ammonia 66, tsh NL,bnp 9000 (2) Confusion: Pt had clearing of confusion, Patient afebrile, HD stable, does not seem to have an infection at this time -Continue Rifaximin once able to take PO -Lactulose TID -BCx x 2 negative to date, urine culture pending -Diagnostic paracentesis not enough ascites to tap (3) Chronic kidney disease: Thought to be secondary to Hepatorenal syndrome. Patient's renal function is improved from prior, BUN=67, Cr=2.98 -Avoid nephrotoxic agents -Renal dosing where needed - Follow BMP with IV Bumex use (4) Hypertension: Blood pressure elevated at 164/103 -Continue Nadolol and Spironolactone for cirrhosis- (5) Liver cirrhosis: Patient with MELD=19 correlating with 6% 3 month mortality. -Continue home medications, Bumex, Spironolactone, Nadolol as above -Continue Rifaximin and lactulose as above -Avoid hepatotoxic agents (6) Esophageal varices without bleeding: Stable H/H, no report of melena/hematochezia -Continue nadolol 40mg BID as above (7) Hyperlipidemia: - lipid panel reviewed, cholesterol 111, DHL 40, LDL 51, no need for statin (8) Type 2 diabetes mellitus: Chronic. Elevated blood sugar today at 243 on admission -NPH 10u qAM -ISS -Goal blood sugar 110 - 140 -Patient NPO for now, may advance diet as mental status improves F/E/N - Diuresis with Bumex 1mg IV daily, monitor electrolytes, NPO for now given poor mental status, meds transitioned to IV and [place] for now. Code - Full at this time. As above, pt previously was on comfort care earlier this fall however then [facility]. Will need to readdress once mental status improves. Admission and Anticipated Discharge Date Admission Date: August 21, 2020 Results & Data Results & Data ([facility]) Vital Signs (Past 12 Hours) Vital Signs Temp Pulse Pulse Resp BP BP Pulse Ox 08/22/20 07:28 63 17 95 08/22/20 07:18 97.9 F 69 18 172/86 H 100 08/21/20 22:40 97.5 F L 83 20 152/71 H 98 PG Care Time/CCT Total # of Minutes Spent Total Time Spent with Patient: Total time spent is greater than 50% in coor dination of care (as documented) at patient's floor/unit and/or counseling patient: Coding Diagnoses Anasarca R60.1 Confusion R41.0 Chronic kidney disease N18.5 Chronic kidney disease stage: stage 5, not on chronic dialysis Hypertension I10 Hypertension type: essential hypertension Liver cirrhosis K74.60 Hepatic cirrhosis type: unspecified hepatic cirrhosis Ascites presence: without ascites Esophageal varices without bleeding I85.00 Esophageal varices type: unspecified type Hyperlipidemia E78.5 Hyperlipidemia type: unspecified Type 2 diabetes mellitus E11.9; Z79.4 Diabetes mellitus buttermaker insulin use: with half-way use Diabetes mellitus complication status: without complication (1) Chronic kidney disease Chronic kidney disease stage: stage 5, not on chronic dialysis Qualified Code(s): N18.5 - Chronic kidney disease, stage 5 (2) Hypertension Hypertension type: essential hypertension Qualified Code(s): I10 - Essential (primary) hypertension (3) Liver cirrhosis Hepatic cirrhosis type: unspecified hepatic cirrhosis Ascites presence: without ascites Qualified Code(s): K74.60 - Unspecified cirrhosis of liver (4) Esophageal varices without bleeding Esophageal varices type: unspecified type Qualified Code(s): I85.00 - Eso phageal varices without bleeding (5) Hyperlipidemia Hyperlipidemia type: unspecified Qualified Code(s): E78.5 - Hyperlipidemia, unspecified (6) Type 2 diabetes mellitus Diabetes mellitus buttermaker insulin use: with buttermaker use Diabetes mellitus complication status: without complication Qualified Code(s): E11.9 - Type 2 diabetes mellitus without complications; Z79.4 - tank terminal gauger (current) use of insulin
[2020-08-22] MEDS: BUMETANIDE 1 MG in SYRINGE 0 ML IV SCH (09:03)
[2020-08-22] MEDS: INSULIN ASPART 100 UNITS/ML 3 ML PEN SC SCH ×2 (09:04→12:00)
[2020-08-22] MEDS: INSULIN HUMAN NPH SC SCH (09:04)
[2020-08-22] MEDS: LACTULOSE SYRUP 20 GM/30 ML UDC PO SCH ×3 (09:07→14:39)
[2020-08-22] MEDS ORDERED: LEVALBUTEROL TARTRATE 15 GM HFA.AER.AD INH PRN (09:46)
[2020-08-22] MEDS ORDERED: cefTRIAXone SODIUM 2,000 MG in DEXTROSE 5% 50 ML IV ONE (11:00)
--- NOTE | 2020-08-22 18:31 | Discharge Summary ---
Date of Service August 22, 2020 Admission HPI Per Admitting Provider Chicho Moreira is a 65 yo male presenting with progressive edema of the face and bilateral LEs. Patient is unable to provide history of events prior to admission due to AMS. History obtained through discussion with ER and chart review. Patient has a history of HCV s/p treatment with Epclusa, Cirrhosis with varices, hepatorenal syndrome, hepatic encephalopathy on Lactulose and Rifaximin. He presents with worsening facial edema which started on the left face and progressed to the right as well as worsening bilateral LE edema ongoing x 2 days. No additional complaints per chart review. No new medications or dose changes ER Course: Dexamethasone 10mg IV, Benadryl 25mg IV Principal Diagnosis hepatic encephalopahty resolved Discharge Exam The patient appeared near his baseline Vital signs as documented. Lungs are clear to auscultation and appear unlabored, decreased at bases Cardiac exam, Rhythm is regular.. No murmurs, rubs or gallops. Abdominal exam reveals normal bowel sounds, soft non tender, no masses Extremities are nonedematous and both pedal pulses are normal. Neurologic exam is alert and oriented, no focal loss of strength or sensation Skin is without bruises or rashes Psychologically is without concerns for anxiety or depression. Discharge Data Allergies Allergy/AdvReac Type Severity Reaction Status Date / Time No Known Drug Allergies Allergy NKDA Unverified 08/21/20 05:38 Consultations 08/21/20 05:28 ED Decision to Admit Stat Ordered Studies 08/21/20 10:00 US abdomen ltd ascites Routine Hospital Course (1) Anasarca: 65yo male with history of cirrhosis of the liver secondary to HCV, hepatorenal syndrome presenting with worsening anasarca - bilateral LE edema as well as facial edema. Patient's liver and kidney numbers appear to be near baseline to slightly improved from prior. -resume outpt bumex -Continue Spironolactone 100mg po daily -Obtain BCx - urine culture, negative the time of discharge ammonia 66, tsh NL,bnp 9000 (2) Confusion: Pt had clearing of confusion, Patient afebrile, HD stable, does not seem to have an infection at this time -Continue Rifaximin once able to take PO -Lactulose TID -BCx x 2 negative to date, urine culture pending -Diagnostic paracentesis not enough ascites to tap (3) Chronic kidney disease: Thought to be secondary to Hepatorenal syndrome. Patient's renal function is improved from prior, BUN=67, Cr=2.98 (4) Hypertension: Blood pressure elevated at 164/103 -Continue Nadolol and Spironolactone for cirrhosis- (5) Liver cirrhosis: Patient with MELD=19 correlating with 6% 3 month mortality. -Continue home medications, Bumex, Spironolactone, Nadolol as above -Continue Rifaximin and lactulose as above (6) Esophageal varices without bleeding: Stable H/H, no report of melena/hematochezia -Continue nadolol 40mg BID as above (7) Hyperlipidemia: - lipid panel reviewed, cholesterol 111, DHL 40, LDL 51, no need for statin (8) Type 2 diabetes mellitus: Chronic. Elevated blood sugar today at 243 on admission Code - Full at this time. As above, pt previously was on comfort care earlier this fall however then refused [facility]. Will need to readdress once mental status improves. Total Time Total Time Spent Total Time Spent (In Minutes): discharge took > 30 minutes due to need to call intermediate for update Discharge Plan Discharge Items [facility]position[facility] Reason For Visit: ANASARCA, FACIAL SWELLING, AMS Discharge Diagnosis: encephalopathy Activity: Resume your previous activity Non-emergency contact: Primary Care Provider Call non-emergency contact if: you have any medication questions and your sym ptoms worsen Follow-up/Referrals: Irais POE [Primary Care Provider] - Diet: Regular and Low Sodium (2gm) Addtl Attending Provider Instructions: low salt diet continue rifamixin offer lactulose Pending Studies at Discharge: Yes Studies:: urine culture Stand-Alone Forms: My [facility] Skilled Items Patient informed of condition?: Yes Discharge Level of Care: Other Communicable Disease: No Discharge Prognosis: Stable Lines: None Urinary Catheter: Yes Medications and DC Order Prescriptions: Continued lactulose 10 gram/15 mL Solution 20 g PO TID PRN (Reason: Constipation) RF: 0 witch beulah-glycerin (hamamel) Pads, Medicated 1 pad TOPICAL TID PRN (Reason: Hemorrhoids) RF: 0 spironolactone 100 mg Tablet 100 mg PO DAILY RF: 0 bumetanide 1 mg Tablet 1 mg PO DAILY RF: 0 nadolol 40 mg Tablet 40 mg PO BID RF: 0 zinc oxide Cream 1 applic TOPICAL BID RF: 0 Xifaxan 550 mg Tablet 550 mg PO BID RF: 0 Novolin 70/30 U-100 Insulin 100 unit/mL (70-30) Suspension 30 unit SUBCUT QAM RF: 0 Novolin R Regular U-100 Insuln 100 unit/mL Solution 1 sliding scale dose SUBCUT USEASDIRECTD RF: 0 levalbuterol tartrate [Xopenex HFA] 45 mcg/actuation Hfa Aerosol Inhaler 2 inh INHALATION QID RF: 0 Discharge Orders: Discharge Order (Routine); Ordered 08/22/20 Ordered By: Deshawn Rodriguez Admission Data Admit Date/Time: 08/21/20 06:03 Attending Provider: Deshawn Rodriguez Admit Provider: Stormy Yang Primary Care Provider: Irais POE Other Providers: Stormy Yang Other Interventions: Discharge Summary Assessment (RN) Last Done: 08/22/20 14:30 Coding Level of Care Code D/C Day Management >30 mins Diagnoses Anasarca R60.1 Confusion R41.0 Chronic kidney disease N18.5 Chronic kidney disease stage: stage 5, not on chronic dialysis Hypertension I10 Hypertension type: essential hypertension Liver cirrhosis K74.60 Hepatic cirrhosis type: unspecified hepatic cirrhosis Ascites presence: without ascites Esophageal varices without bleeding I85.00 Esophageal varices type: unspecified type Hyperlipidemia E78.5 Hyperlipidemia type: unspecified Type 2 diabetes mellitus E11.9; Z79.4 Diabetes mellitus mcfp insulin use: with mcfp use Diabetes mellitus complication status: without complication
== END 2020-08-22 16:26 | DRG 441 ==
LOC: ED 04:17 → 2W 06:03 → SUATTDRO 06:03 → INTOOBSV 06:03 → 2W 07:29

== ENCOUNTER 2020-08-26 03:24 | Inpatient (IN) ==
[2020-08-26 04:18] LABS: Hematocrit (blood only) 27.8 % (42-52); Hemoglobin 8.7 g/dL (14.0-18.0); Mean Corpuscular Hemoglobin 32.7 pg (25-34); Mean Corpuscular Hgb Conc 31.3 g/dL (32-36); Mean Corpuscular Volume 104.5 fL (80-100); Nucleated RBC # (auto) 0.04 K/uL (0-0); Nucleated RBC % (auto) 0.9 %; RDW Coefficient of Variation 17.3 % (11.5-14.5); RDW Standard Deviation 66.1 fL (36.4-46.3); Red Blood Count 2.66 M/uL (4.7-6.1); White Blood Count 4.31 K/uL (4.8-10.8)
[2020-08-26 04:37] LABS: Alanine Aminotransferase 31 U/L (12-78); Albumin Level 2.4 gm/dl (3.4-5.0); Aspartate Aminotransferase 30 U/L (15-37); BUN Creatinine Ratio 28.4 (10-20); Blood Urea Nitrogen 87 mg/dl (7-18); Calcium 8.2 mg/dl (8.5-10.1); Carbon Dioxide 20 mmol/L (21-32); Chloride 120 mmol/L (98-107); Creatinine Clr Calc Pharmacy 27.4 ml/min; Est GFR (African American) 23.5; Est GFR (Non-African American) 20.3; Glucose 209 mg/dl (70-99); Magnesium 2.4 mg/dl (1.8-2.4); Potassium 4.5 mmol/L (3.5-5.1); Sodium 146 mmol/L (136-145)
[2020-08-26 04:38] LABS: Immature Granulocytes # (auto) 0.03 K/uL (0.00-0.02); Immature Granulocytes % (auto) 0.7 %; Lymphocytes # (auto) 0.36 K/uL (1.2-3.4); Lymphocytes % (auto) 8.4 %; Mean Platelet Volume 11.6 fL (7.4-10.4); Monocytes # (auto) 0.26 K/uL (0.11-0.59); Neutrophils # (auto) 3.66 K/uL (1.4-6.5); Neutrophils % (auto) 84.9 %; Platelet Count 81 K/uL (130-400); Platelet Estimate Decreased (Normal); Toxic Vacuolation 1+
[2020-08-26 04:48] LABS: Albumin Globulin Ratio 0.5 (0.9-2); Alkaline Phosphatase 142 U/L (45-117); Bilirubin,Total 0.6 mg/dl (0.2-1); Total Protein 7.4 gm/dl (6.4-8.2); Troponin I < 0.015 ng/ml (0-0.045)
--- NOTE | 2020-08-26 05:27 | Emergency Department Note ---
Impression & Plan Hypothermia, Acute hepatic encephalopathy, Bradycardia, Metabolic acidosis ED Provider Note NAME: CHEVY STOVALL V AGE: 65 SEX: M ARRIVES VIA: Ambulance INFORMANT: Patient ED PROVIDER(S): Jigna Presley DO CHIEF COMPLAINT: Unresponsive PLAN: Disposition: Admitted to the ICU Condition: Critical tion management: None Referral: MEDICAL DECISION MAKING: This is a 65-year-old male patient with an extensive past medical history who presents to the emergency department in an unresponsive state. The patient has a history of significant end-stage renal disease and hepatic encephalopathy. Patient was recently admitted to the hospital with anasarca. The patient presents with moderate to severe hypothermia, bradycardia and an elevated ammonia level. Patient is suffering from severe metabolic acidosis and is having difficulty protecting his own airway and is obtunded state. We electively chose to perform RSI and endotracheal intubation to secure his airway. Just after this procedure, the patient suffered cardiac arrest. He received approximately 30 seconds of chest compressions and 1 mg of IV epinephrine and his heart rate returned to normal. The cause of the patient's hypothermia and metabolic acidosis is unknown at this time. It may be secondary to sepsis. Admitting physicians have ordered IV antibiotics. Chest x-ray showed evidence of bibasilar consolidations which could be infectious in nature. Triage Nursing notes reviewed and agree them. Additional history obtained from Prior medical records reviewed Vital Signs: reviewed and remarkable for no significant abnormalities Differential diagnosis: Sepsis, electrolyte abnormality, metabolic encephalopathy, hepatic encephalopathy, hypoglycemia, hyperglycemia, cardiac dysrhythmia ER treatment provided: Active rewarming; endotracheal intubation Diagnostics interpreted by me: ECG: Sinus bradycardia at a rate of 44 with a significantly prolonged QTC at 555 ms; there is no ectopy or other signs of ischemia. Cardiac Monitoring: Sinus bradycardia at 40 Laboratory studies: See below Imaging studies: XR chest 1V portable CLINICAL HISTORY: weakness COMPARISON STUDY: Chest radiograph August 21, 2020. FINDINGS: There is no pneumothorax. Small left pleural effusion is noted. There may be a trace right pleural effusion. Interstitial thickening and bilateral opacities are noted. There is suspected bibasilar consolidation. Mild enlargement of the cardiac silhouette is noted. IMPRESSION: 1. Suspected bibasilar consolidation. An infectious process or aspiration is favored. Radiographic follow up is recommended. 2. Small left and trace right pleural effusions. Consultation(s): None HPI: 65/M arrives for evaluation of. ROS: See above HPI for pertinent positives & negatives. A total of 10 systems reviewed and were otherwise negative. 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 HEENT: Head - normocephalic and atraumatic. Pupils are equal, pinpoint, round, and sluggishly reactive to light. Extraocular eye muscles are intact, and sclera are anicteric. Nose -extremely dry nasal mucosa without discharge. Mo uth - moist buccal mucosa with moderate secretions. Oropharynx is nonerythematous and there is no tonsillar exudate or edema noted. Neck: Supple; no JVD appreciated although there is moderate edema Heart: Bradycardic rate and rhythm. There is a normal S1 and S2 with no murmurs, clicks, or gallops appreciated. Lungs: Diminished breath sounds at both bases bilaterally. Abdomen: Soft, completely nontender, nondistended, with good bowel sounds. There are no palpable pulsatile masses or hepatosplenomegaly. There is no guarding, rigidity, or rebound noted. Extremities: No evidence of cyanosis, clubbing, or edema. There are easily palpable peripheral pulses. Skin: Superficial wounds to the lower extremities that do not appear to be infected. There is significant edema to the lower extremities. ED COURSE: Times/Reassessments: 0320: The patient was evaluated in room C9. A complete history and physical was performed. Multiple previous electronic medical records were reviewed. Laboratory studies were drawn as above. An order was placed for continuous cardiac monitoring. Patient was in a sinus bradycardia at a rate of 40. A twelve-lead EKG was obtained. They could not obtain an oral temp so a rectal temp was obtained and was found to be 30.8. The patient had a bear hugger applied. Laboratory studies were drawn. The patient was straight cathed for urine. Chest x-ray was performed. I spent some time looking through the patient's chart with regards to his resuscitation status. It appears that he had previously been a level 5 DNI/DNR but had been switched back to level 1 during his previous hospitalization. I discussed the case with Dr. Yang from the [facility] group she will evaluate the patient. She requested evaluation from the nurse practitioner in the ICU. They felt that the patient had increased secretions and may not be able to protect his own airway. On my evaluation of the patient, his O2 saturations were stable but he did have increased secretions. I performed an arterial stick in the right femoral artery to obtain an ABG as described below. The patient has severe metabolic acidosis and will require endotracheal intubation. RSI will be performed with succinylcholine and etom idate. Endotracheal Intubation Indication: Airway protection The patient was on 100% oxygen via oxygen mask prior to the procedure. Suction, airway equipment, RSI drugs, respiratory equipment, and appropriate personnel were prepared prior to the initiation of the procedure. A time out was taken. Induction was performed with 150 mg of IV succinylcholine and 30 mg of IV etomidate. After observing the clinical benefit of the medications, the airway was easily visualized utilizing a glide scope. A 7.0 size ETT tube was placed atraumatically to 24 cm using standard technique. The cuff inflated without signs of malfunction. There were bilateral breath sounds, positive colormetric change, no gastric sounds, , and post procedure pulse oximetry was 100%. As the endotracheal tube was passing through the cords, the nursing staff noted that the patient's heart rate was 28 and then 17. They then noted the patient went asystolic. He was pulseless at that time. Chest compressions were started and the patient was given 1 mg of IV epinephrine and a CODE BLUE was called. The patient received chest compressions for approximately 30 seconds and his heart rate returned to the mid 70s. He then had a palpable carotid pulse. I have personally spent greater than 90 minutes of critical care time in the direct management of this patient. This includes bedside care, interpretation of diagnostic studies, and testing, discussion with consultants, patient, and family members, and other required patient management activities. This 90 minutes is in excess of all separately billable procedures. Jigna Presley DO Past Med/Surg History Medical History Acute hepatic encephalopathy Acute kidney injury Allergic rhinitis Anemia, unspecified Chronic kidney disease, unspecified Confusion Esophageal varices without bleeding Flatulence GERD (gastroesophageal reflux disease) HCV (hepatitis C virus) Treated Hyperlipidemia Hypertension Liver cirrhosis Low back pain Metabolic acidosis Microscopic hematuria Onychomycosis Palliative care encounter Partial small bowel obstruction Proteinuria Pruritus, unspecified Type 2 diabetes mellitus Umbilical hernia without obstruction or gangrene Social History Smoking Status: Former smoker Second Hand Exposure: No; Hx Alcohol Use: No Hx Substance Use: No Preferred Language: Armenian Communication Ability: Impaired Customer Support Manager Required: No Beliefs That Will Affect Care: None Current Living Situation: Legal Guardian and Other Current Living Situation Comment: DEEPIKA Braxton Feels Safe at Home: Yes Assistive Devices: Oxygen - Continuous Allergies Allergies Allergy/AdvReac Type Severity Reaction Status Date / Time No Known Drug Allergies Allergy NKDA Unverified 08/26/20 04:25 Home Meds Home Medications Medication Instructions Recorded Confirmed lactulose 20 g PO TID PRN 06/28/20 08/26/20 Novolin 70/30 U-100 Insulin 30 unit SUBCUT QAM 08/21/20 08/26/20 Novolin R Regular U-100 Insuln 1 sliding scale dose SUBCUT 08/21/20 08/26/20 USEASDIRECTD Xifaxan 550 mg PO BID 08/21/20 08/26/20 bumetanide 1 mg PO DAILY 08/21/20 08/26/20 levalbuterol tartrate [Xopenex HFA] 2 inh INHALATION QID 08/21/20 08/26/20 nadolol 40 mg PO BID 08/21/20 08/26/20 spironolactone 100 mg PO DAILY 08/21/20 08/26/20 witch beulah-glycerin (hamamel) 1 pad TOPICAL TID PRN 08/21/20 08/26/20 zinc oxide 1 applic TOPICAL BID 08/21/20 08/26/20 Results & Data (ED) Vital Signs Vital Signs - 24 hr 08/26/20 03:30 08/26/20 04:19 08/26/20 04:30 Temperature 30.9 C L Temperature Source Rectal Pulse Rate 40 L 42 L Respiratory Rate 12 12 Respiratory Effort / Characteristics Accessory Muscle Use Moaning Respiratory Pattern Gasping Blood Pressure 140/71 160/76 H Blood Pressure Mean 94 86 Pulse Oximetry 100 100 100 Oxygen Delivery Method Non-rebreather Non-rebreather Oxygen Flow Rate 15 Sepsis New/Unexplained Change in Mental Status N/A Sepsis Action Taken by Nursing No Action Required Oxygen Flow Rate - Titration 15 08/26/20 04:32 08/26/20 04:34 08/26/20 04:50 Temperature Temperature Source Pulse Rate 43 L Respiratory Rate 12 Respiratory Effort / Characteristics Respiratory Pattern Blood Pressure 149/65 H Blood Pressure Mean 79 Pulse Oximetry 100 100 Oxygen Delivery Method Non-rebreather Oxymask Oxygen Flow Rate 15 10 Sepsis New/Unexplained Change in Mental Status Sepsis Action Taken by Nursing Oxygen Flow Rate - Titration 08/26/20 05:00 08/26/20 05:15 08/26/20 05:31 Temperature Temperature Source Pulse Rate 40 L 39 L 41 L Respiratory Rate 16 16 16 Respiratory Effort / Characteristics Respiratory Pattern Blood Pressure 148/73 H 131/65 126/76 Blood Pressure Mean 80 77 102 Pulse Oximetry 98 98 98 Oxygen Delivery Method Oxygen Flow Rate Sepsis New/Unexplained Change in Mental Status Sepsis Action Taken by Nursing Oxygen Flow Rate - Titration 08/26/20 05:46 08/26/20 06:15 08/26/20 06:31 Temperature Temperature Source Pulse Rate 39 L 38 L 39 L Respiratory Rate 16 16 16 Respiratory Effort / Characteristics Respiratory Pattern Blood Pressure 119/56 L 113/57 L 102/65 Blood Pressure Mean 69 70 76 Pulse Oximetry 98 94 93 Oxygen Delivery Method Oxygen Flow Rate Sepsis New/Unexplained Change in Mental Status Sepsis Action Taken by Nursing Oxygen Flow Rate - Titration Laboratory Data Result diagrams: 08/28/20 04:35 08/28/20 04:35 Lab Results 08/26/20 08/26/20 08/26/20 Range/Units 04:05 04:05 04:05 WBC (4.8-10.8) K/uL RBC (4.7-6.1) M/uL Hgb (14.0-18.0) g/dL Hct (42-52) % MCV (80-100) fL MCH (25-34) pg MCHC (32-36) g/dL RDW Std Deviation (36.4-46.3) fL RDW Coeff of Kianna (11.5-14.5) % Plt Count (130-400) K/uL MPV (7.4-10.4) fL Immature Gran % (Auto) % Neut % (Auto) % Lymph % (Auto) % [place] % (Auto) % Eos % (Auto) % Baso % (Auto) % Neut # (Auto) (1.4-6.5) K/uL Lymph # (Auto) (1.2-3.4) K/uL [place] # (Auto) (0.11-0.59) K/uL Eos # (Auto) (0-0.5) K/uL Baso # (Auto) (0-0.2) K/uL Immature Gran # (Auto) (0.00-0.02) K/uL Absolute Nucleated RBC (0-0) K/uL Nucleated RBC % (auto) % Toxic Vacuolation Platelet Estimate (Normal) PT (9.0-12.0) Seconds INR (0.9-1.1) APTT (21.0-31.0) Seconds PTT Ratio Sodium 146 H (136-145) mmol/L Potassium 4.5 (3.5-5.1) mmol/L Chloride 120 H (98-107) mmol/L Carbon Dioxide 20 L (21-32) mmol/L Anion Gap 6.0 (3-11) BUN 87 H (7-18) mg/dl Creatinine 3.05 H (0.6-1.4) mg/dl Est Cr Clr Drug Dosing 27.4 ml/min Est GFR ( Amer) 23.5 Est GFR (Non-Af Amer) 20.3 BUN/Creatinine Ratio 28.4 H (10-20) Glucose 209 H (70-99) mg/dl Lactate 1.4 (0.4-2.0) mmol/L Calcium 8.2 L (8.5-10.1) mg/dl Magnesium 2.4 (1.8-2.4) mg/dl Total Bilirubin 0.6 (0.2-1) mg/dl AST 30 (15-37) U/L ALT 31 (12-78) U/L Alkaline Phosphatase 142 H (45-117) U/L Ammonia 98.0 H (11-32) umol/L Troponin I < 0.015 (0-0.045) ng/ml Total Protein 7.4 (6.4-8.2) gm/dl Albumin 2.4 L (3.4-5.0) gm/dl Globulin 5.0 H (2.5-4.0) gm/dl Albumin/Globulin Ratio 0.5 L (0.9-2) TSH 1.540 (0.300-4.500) uIu/ml SARS-CoV-2 Ag (Rapid) (Negative) 08/26/20 08/26/20 08/26/20 Range/Units 04:05 04:05 06:04 WBC 4.31 L (4.8-10.8) K/uL RBC 2.66 L (4.7-6.1) M/uL Hgb 8.7 L (14.0-18.0) g/dL Hct 27.8 L (42-52) % MCV 104.5 H (80-100) fL MCH 32.7 (25-34) pg MCHC 31.3 L (32-36) g/dL RDW Std Deviation 66.1 H (36.4-46.3) fL RDW Coeff of Kianna 17.3 H (11.5-14.5) % Plt Count 81 L (130-400) K/uL MPV 11.6 H (7.4-10.4) fL Immature Gran % (Auto) 0.7 % Neut % (Auto) 84.9 % Lymph % (Auto) 8.4 % [place] % (Auto) 6.0 % Eos % (Auto) 0.0 % Baso % (Auto) 0.0 % Neut # (Auto) 3.66 (1.4-6.5) K/uL Lymph # (Auto) 0.36 L (1.2-3.4) K/uL [place] # (Auto) 0.26 (0.11-0.59) K/uL Eos # (Auto) 0.00 (0-0.5) K/uL Baso # (Auto) 0.00 (0-0.2) K/uL Immature Gran # (Auto) 0.03 H (0.00-0.02) K/uL Absolute Nucleated RBC 0.04 H (0-0) K/uL Nucleated RBC % (auto) 0.9 % Toxic Vacuolation 1+ Platelet Estimate Decreased L (Normal) PT 14.3 H (9.0-12.0) Seconds INR 1.4 H (0.9-1.1) APTT 37.2 H (21.0-31.0) Seconds PTT Ratio 1.3 Sodium (136-145) mmol/L Potassium (3.5-5.1) mmol/L Chloride (98-107) mmol/L Carbon Dioxide (21-32) mmol/L Anion Gap (3-11) BUN (7-18) mg/dl Creatinine (0.6-1.4) mg/dl Est Cr Clr Drug Dosing ml/min Est GFR ( Amer) Est GFR (Non-Af Amer) BUN/Creatinine Ratio (10-20) Glucose (70-99) mg/dl Lactate (0.4-2.0) mmol/L Calcium (8.5-10.1) mg/dl Magnesium (1.8-2.4) mg/dl Total Bilirubin (0.2-1) mg/dl AST (15-37) U/L ALT (12-78) U/L Alkaline Phosphatase (45-117) U/L Ammonia (11-32) umol/L Troponin I (0-0.045) ng/ml Total Protein (6.4-8.2) gm/dl Albumin (3.4-5.0) gm/dl Globulin (2.5-4.0) gm/dl Albumin/Globulin Ratio (0.9-2) TSH (0.300-4.500) uIu/ml SARS-CoV-2 Ag (Rapid) Negative (Negative) Administered Medications Famotidine 20 mg/ Syringe 5 mls @ 2.5 mls/min IV DAILY JENNIFER Stop: 09/25/20 08:59 Last Admin: 08/28/20 08:19 Dose: 2.5 mls/min Documented by: [id number] Admin: 08/27/20 08:51 Dose: 2.5 mls/min Documented by: [id number] Admin: 08/26/20 08:31 Dose: 2.5 mls/min Documented by: [id number] Thiamine HCl 100 mg/ Syringe 10 mls @ 2 mls/min IV Q24H JENNIFER Stop: 09/25/20 11:59 Last Admin: 08/28/20 11:48 Dose: 2 mls/min Documented by: [id number] Admin: 08/27/20 12:04 Dose: 2 mls/min Documented by: [id number] Admin: 08/26/20 11:14 Dose: 2 mls/min Documented by: [id number] Ceftriaxone Sodium 2,000 mg/ (Dextrose) 70 mls @ 100 mls/hr IV Q24H JENNIFER; Protocol Stop: 09/01/20 10:41 Last Admin: 08/28/20 11:55 Dose: 100 mls/hr Documented by: [id number] Insulin Aspart (Insulin Aspart 100 Units/Ml 3 Ml Pen) [address] [facility] Stop: 09/27/20 11:59 Last Admin: 08/28/20 11:37 Dose: Not Given Documented by: [id number] Cosigned by: [id number] Insulin Glargine (Insulin Glargine Solostar 100 Units/Ml 3 Ml Pen) [address] [facility]; Protocol Stop: 09/25/20 20:59 Last Admin: 08/28/20 08:12 Dose: 5 units Documented by: [id number] Cosigned by: [id number] Admin: 08/27/20 20:53 Dose: Not Given Documented by: [id number] Admin: 08/27/20 08:24 Dose: 5 units Documented by: [id number] Cosigned by: [id number] Admin: 08/26/20 20:47 Dose: 10 units Documented by: [id number] Cosigned by: [id number] Lactulose (Lactulose Syrup 30 Gm/45 Ml Udp) [address] [facility] Stop: 09/25/20 13:59 Last Admin: 08/28/20 08:29 Dose: Not Given Documented by: [id number] Admin: 08/27/20 20:47 Dose: 30 gm Documented by: [id number] Admin: 08/27/20 15:25 Dose: Not Given Documented by: [id number] Admin: 08/27/20 08:28 Dose: 30 gm Documented by: [id number] Admin: 08/26/20 20:46 Dose: 30 gm Documented by: [id number] Admin: 08/26/20 17:01 Dose: 30 gm Documented by: [id number] Rifaximin (Rifaximin 550 Mg Tablet) [address] [facility] Stop: 09/25/20 08:59 Last Admin: 08/28/20 08:12 Dose: 550 mg Documented by: [id number] Admin: 08/27/20 20:47 Dose: 550 mg Documented by: [id number] Admin: 08/27/20 08:28 Dose: 550 mg Documented by: [id number] Admin: 08/26/20 20:46 Dose: 550 mg Documented by: [id number] Admin: 08/26/20 09:02 Dose: Not Given Documented by: [id number] Discontinued Medications Atropine Sulfate (Atropine Sulfate 0.1 Mg/Ml 10ml Syr) Confirm Administered Dose 1 mg IV .STK-MED ONE Stop: 08/27/20 20:33 Last Admin: 08/27/20 21:35 Dose: Not Given Documented by: [id number] Lactulose 200 gm/ Sterile Water 700 ml/ BARCODE IDENTIFIER 1 ea [address] [facility] Stop: 09/25/20 08:59 Last Admin: 08/26/20 11:28 Dose: Not Given Documented by: [id number] Furosemide (Furosemide 40 Mg/4 Ml Vial) Confirm Administered Dose 40 mg IV .STK- MED ONE Stop: 08/26/20 15:13 Last Admin: 08/26/20 15:50 Dose: Not Given Documented by: [id number] Heparin Sodium (Porcine) (Heparin Sod 5,000 Unit/0.5 Ml Vial) 5,000 units SQ Q12 [facility] Stop: 09/25/20 20:59 Last Admin: 08/27/20 08:43 Dose: Not Given Documented by: [id number] Admin: 08/26/20 20:46 Dose: 5,000 units Documented by: [id number] Lactated Ringer's (Lr) 1,000 mls @ 100 mls/hr IV .Q10H [facility] Stop: 08/26/20 18:29 Last Infusion: 08/26/20 12:01 Dose: 0 mls/hr Documented by: [id number] Admin: 08/26/20 08:31 Dose: 100 mls/hr Documented by: [id number] Ceftriaxone Sodium 2,000 mg/ (Dextrose) 70 mls @ 100 mls/hr IV Q24H [facility]; Protocol Stop: 08/28/20 08:59 Last Infusion: 08/27/20 09:45 Dose: 0 mls/hr Documented by: [id number] Admin: 08/27/20 09:02 Dose: 100 mls/hr Documented by: [id number] Infusion: 08/26/20 12:01 Dose: 0 mls/hr Documented by: [id number] Admin: 08/26/20 08:31 Dose: 100 mls/hr Documented by: [id number] Glucagon 3 mg/ Syringe 3 mls @ 1 mls/min IV ONE ONE Stop: 08/26/20 08:17 Last Admin: 08/26/20 08:57 Dose: Not Given Documented by: [id number] Vancomycin HCl 2,000 mg/ (Sodium Chloride) 540 mls @ 200 mls/hr IV ONE ONE; Protocol Stop: 08/26/20 11:11 Last Infusion: 08/26/20 12:01 Dose: 0 mls/hr Documented by: [id number] Admin: 08/26/20 08:31 Dose: 200 mls/hr Documented by: [id number] Norepinephrine Bitartrate (Levophed/D5w) 8 mg in 508 mls @ 19.85 mls/hr IV .Q24H [facility]ENN[facility]ER; Protocol Stop: 09/25/20 08:59 Last Titration: 08/27/20 21:36 Dose: 0 mcg/kg/min, 0 mls/hr Documented by: [id number] Admin: 08/27/20 08:43 Dose: Not Given Documented by: [id number] Titration: 08/26/20 22:26 Dose: 0 mcg/kg/min, 0 mls/hr Documented by: [id number] Titration: 08/26/20 22:21 Dose: 0.02 mcg/kg/min, 7.9 mls/hr Documented by: [id number] Titration: 08/26/20 22:16 Dose: 0.04 mcg/kg/min, 15.9 mls/hr Documented by: [id number] Titration: 08/26/20 22:11 Dose: 0.06 mcg/kg/min, 23.8 mls/hr Documented by: [id number] Titration: 08/26/20 22:06 Dose: 0.08 mcg/kg/min, 31.8 mls/hr Documented by: [id number] Titration: 08/26/20 19:29 Dose: 0.1 mcg/kg/min, 39.7 mls/hr Documented by: [id number] Cosigned by: [id number] Titration: 08/26/20 17:45 Dose: 0.1 mcg/kg/min, 39.7 mls/hr Documented by: [id number] Titration: 08/26/20 15:00 Dose: 0.05 mcg/kg/min, 19.9 mls/hr Documented by: [id number] Titration: 08/26/20 10:30 Dose: 0 mcg/kg/min, 0 mls/hr Documented by: [id number] Titration: 08/26/20 09:26 Dose: 0.15 mcg/kg/min, 59.6 mls/hr Documented by: [id number] Titration: 08/26/20 09:05 Dose: 0.1 mcg/kg/min, 39.7 mls/hr Documented by: [id number] Admin: 08/26/20 08:54 Dose: 0.05 mcg/kg/min, 19.9 mls/hr Documented by: [id number] Cosigned by: [id number] Glucagon 3 mg/ Syringe 3 mls @ 1 mls/min IV ONE ONE Stop: 08/26/20 09:47 Last Admin: 08/26/20 10:42 Dose: 1 mls/min Documented by: [id number] Albumin Human (Albumin 25%) 12.5 gm in 50 mls @ 50 mls/hr IV Q1H [facility] Stop: 08/26/20 13:59 Last Infusion: 08/26/20 14:30 Dose: 0 mls/hr Documented by: [id number] Admin: 08/26/20 14:10 Dose: 50 mls/hr Documented by: [id number] Infusion: 08/26/20 14:02 Dose: 50 mls/hr Documented by: [id number] Admin: 08/26/20 13:02 Dose: 50 mls/hr Documented by: [id number] Infusion: 08/26/20 12:15 Dose: 50 mls/hr Documented by: [id number] Admin: 08/26/20 11:52 Dose: 50 mls/hr Documented by: [id number] Infusion: 08/26/20 11:52 Dose: 50 mls/hr Documented by: [id number] Admin: 08/26/20 11:13 Dose: 50 mls/hr Documented by: [id number] Potassium Chloride (K Lamont / Wtr) 10 meq in 100 mls @ 100 mls/hr IV Q1H [facility] Stop: 08/27/20 07:02 Last Infusion: 08/27/20 08:37 Dose: 0 mls/hr Documented by: [id number] Admin: 08/27/20 07:22 Dose: 100 mls/hr Documented by: [id number] Infusion: 08/27/20 07:20 Dose: 100 mls/hr Documented by: [id number] Admin: 08/27/20 06:20 Dose: 100 mls/hr Documented by: [id number] Vancomycin HCl 1,500 mg/ (Sodium Chloride) 530 mls @ 200 mls/hr IV TODAY@1000 ONE Stop: 08/27/20 12:38 Last Infusion: 08/27/20 11:15 Dose: 0 mls/hr Documented by: [id number] Admin: 08/27/20 08:24 Dose: 200 mls/hr Documented by: [id number] Chlorothiazide Sodium 500 mg/ (Dextrose) 68 mls @ 200 mls/hr IV BID JENNIFER Stop: 08/27/20 21:21 Last Infusion: 08/27/20 21:09 Dose: 0 mls/hr Documented by: [id number] Admin: 08/27/20 20:48 Dose: 200 mls/hr Documented by: [id number] Infusion: 08/27/20 11:20 Dose: 0 mls/hr Documented by: [id number] Admin: 08/27/20 10:53 Dose: 200 mls/hr Documented by: [id number] Dopamine HCl/Dextrose (Dopamine / D5w) 400 mg in 250 mls @ 0 mls/hr IV .Q0M [facility]ENN[facility]ER; Protocol Stop: 09/26/20 15:14 Last Titration: 08/28/20 04:44 Dose: 0 mcg/kg/min, 0 mls/hr Documented by: [id number] Titration: 08/28/20 02:39 Dose: 2.5 mcg/kg/min, 9.8 mls/hr Documented by: [id number] Titration: 08/27/20 19:02 Dose: 5 mcg/kg/min, 19.5 mls/hr Documented by: [id number] Cosigned by: [id number] Admin: 08/27/20 15:26 Dose: 2.5 mcg/kg/min, 9.8 mls/hr Documented by: [id number] Cosigned by: [id number] Insulin Aspart (Insulin Aspart 100 Units/Ml 3 Ml Pen) 0 units SC Q6 [facility] Stop: 09/25/20 08:29 Last Admin: 08/26/20 11:51 Dose: 3 units Documented by: [id number] Cosigned by: [id number] Admin: 08/26/20 08:59 Dose: 2 units Documented by: [id number] Cosigned by: [id number] Insulin Aspart (Insulin Aspart 100 Units/Ml 3 Ml Pen) 0 units SC Q4 [facility]; Protocol Stop: 09/25/20 15:59 Last Admin: 08/28/20 04:24 Dose: Not Given Documented by: [id number] Admin: 08/28/20 00:42 Dose: Not Given Documented by: [id number] Admin: 08/27/20 20:52 Dose: Not Given Documented by: [id number] Cosigned by: [id number] Admin: 08/27/20 16:16 Dose: Not Given Documented by: [id number] Cosigned by: [id number] Admin: 08/27/20 12:06 Dose: 5 units Documented by: [id number] Cosigned by: [id number] Admin: 08/27/20 08:26 Dose: 2 units Documented by: [id number] Cosigned by: [id number] Admin: 08/27/20 05:00 Dose: 4 units Documented by: [id number] Cosigned by: [id number] Admin: 08/27/20 00:13 Dose: 4 units Documented by: [id number] Cosigned by: [id number] Admin: 08/26/20 20:47 Dose: 6 units Documented by: [id number] Cosigned by: [id number] Admin: 08/26/20 16:59 Dose: 8 units Documented by: [id number] Cosigned by: [id number] Insulin Glargine (Insulin Glargine Solostar 100 Units/Ml 3 Ml Pen) 10 units SC BID JENN[facility]ER Stop: 09/25/20 08:59 Last Admin: 08/26/20 08:53 Dose: 10 units Documented by: [id number] Cosigned by: [id number] Miscellaneous (Rapid Sequence Induction Bag) Confirm Administered Dose 1 ea .ROUTE .STK-MED ONE Stop: 08/26/20 06:59 Last Admin: 08/26/20 08:57 Dose: 1 ea Documented by: [id number] Discharge Plan Visit Data Chief Complaint: Unresponsive Stated Complaint: UNRESPONSIVE ED Provider: Jigna Presley Discharge Problem: Hypothermia, Acute hepatic encephalopathy, Bradycardia, Metabolic acidosis Patient Disposition: Admitted As Inpatient Discharge Instructions Interventions: ED Discharge Assessment Last Done: 08/26/20 07:35 Discharge Problem: Hypothermia Qualifiers: Encounter type: initial encounter Qualified Code(s): T68.XXXA - Hypothermia, initial encounter
--- NOTE | 2020-08-26 06:44 | History & Physical Report ---
Date of Service August 26, 2020 Assessment & Plan (1) Obtundation: Patient hypothermic, bradycardic. He is obtunded, not responding to verbal/tactile stimuli. Presently saturations are maintained but he is not protecting his airway. Ddx to include infection, overdose (?BB), hepatic encephalopathy, CVA -Admit to MICU -STAT CT Head -ABG - will presumably need intubation -Check UTOx, Procalcitonin -Follow cultures -Empiric antibiotics with Vancomycin and Ceftriaxone -Lactulose enema q 8 hours Present on Admission?: Yes (2) Bradycardia: Sinus bradycardia. No EKG changes of ischemia. Troponin negative. ? BB effects -Glucagon bolus and gtt -Telemetry monitoring -Hold Nadolol Present on Admission?: Yes (3) Hypothermia: ? Secondary to infection/sepsis/metabolic encephalopathy/end of life? -Warming blanket -Core temperature monitoring -Treatment of underlying medical conditions Present on Admission?: Yes (4) Liver cirrhosis: ?Hepatic encephalopathy with elevated Ammonia -Lactulose enema -Continue Rifaximin - patient unable to take PO at this time -Hold Bumex and Spironolactone -Empric antibiotics Present on Admission?: Yes (5) Hypertension: Blood pressure within normal range -Hold Nadolol, Spironolactone and Bumex -Montior Present on Admission?: Yes (6) CKD (chronic kidney disease), stage IV: Near baseline -Avoid nephrotoxins -Gentle IVF -Finn -Monitor BUN/Cr/electroltyes and UOP Present on Admission?: Yes (7) Esophageal varices without bleeding: H/H stable -Holding Nadolol in setting of bradycardia Present on Admission?: Yes (8) Type 2 diabetes mellitus: Lantus, ISS -Goal blood sugar 100 - 180 Present on Admission?: Yes (9) GERD (gastroesophageal reflux disease): Chronic -Pepcid IV daily F/E/N- LR at 100mL/hr x 1 liter, monitor electrolytes, NPO Ppx - Pepcid Code - Full Code - confirmed this with RN at [facility] Irais Dispo - Admit to MICU Present on Admission?: Yes History of Present Illness Chief Complaint: [facility] Primary Care Provider: DEEPIKA Braxton Patient obtunded, unable to answer questions or participate in exam. History obtained through discussion with ER attending and chart review. Chicho Moreira is a 65yo male with history of hepatic cirrhosis with varices, CKD, DM/HTN/HLP. Patient was recently admitted for anasarca from 08/21 - 08/22. He was diuresed with Bumex and ultimately returned to [facility]. Per COs at bedside, patient has been in [facility] since returning home from the hospital. His mental status has been progressively declining. He returns to [facility] today for unresponsiveness. On arrival to the ER patient found to be hypothermic with Tc=30.9, bradycardic at 38, BP normal, RR=16 saturating 94% on 10L oxymask ER Course: Allergies Allergy/AdvReac Type Severity Reaction Status Date / Time No Known Drug Allergies Allergy NKDA Unverified 08/26/20 04:25 Home Medications Medication Instructions Recorded Confirmed Type lactulose 20 g PO TID PRN 06/28/20 08/26/20 History Novolin 70/30 U-100 Insulin 30 unit SUBCUT QAM 08/21/20 08/26/20 History Novolin R Regular U-100 Insuln 1 sliding scale dose SUBCUT 08/21/20 08/26/20 History USEASDIRECTD Xifaxan 550 mg PO BID 08/21/20 08/26/20 History bumetanide 1 mg PO DAILY 08/21/20 08/26/20 History levalbuterol tartrate [Xopenex HFA] 2 inh INHALATION QID 08/21/20 08/26/20 History nadolol 40 mg PO BID 08/21/20 08/26/20 History spironolactone 100 mg PO DAILY 08/21/20 08/26/20 History witch beulah-glycerin (hamamel) 1 pad TOPICAL TID PRN 08/21/20 08/26/20 History zinc oxide 1 applic TOPICAL BID 08/21/20 08/26/20 History Past Med/Surg History Medical History Acute hepatic encephalopathy Acute kidney injury Allergic rhinitis Anemia, unspecified Chronic kidney disease, unspecified Confusion Esophageal varices without bleeding Flatulence GERD (gastroesophageal reflux disease) HCV (hepatitis C virus) Treated Hyperlipidemia Hypertension Liver cirrhosis Low back pain Metabolic acidosis Microscopic hematuria Onychomycosis Palliative care encounter Partial small bowel obstruction Proteinuria Pruritus, unspecified Type 2 diabetes mellitus Umbilical hernia without obstruction or gangrene Social History Smoking Status: Unknown if ever smoked Second Hand Exposure: No; Hx Alcohol Use: No Hx Substance Use: No Preferred Language: Upper Sorbian Communication Ability: speech, Pit Recorder Required: No Beliefs That Will Affect Care: None Current Living Situation: Legal Guardian and Other Current Living Situation Comment: DEEPIKA Braxton Feels Safe at Home: Yes Assistive Devices: None Review of Systems Review of Systems: Unobtainable due to reduced consciousness Physical Exam Physical Exam: General: patient obtunded, unresponsive to verbal or noxious stimuli Skin: warm, dry, intact, no rashes or lesions HEENT: Pupils pinpoint and sluggish, anicteric sclera, + chemosis, external ear normal to inspection and nontender, nares patent, trachea midline, no LAD, no thyromegaly, frothy sputum Heart: +S1/S2, regular, bradycardic, no m/r/g Lungs: equal air entry bilaterally, no rales/rhonchi/wheezes Abd: +BS, soft, ND, no masses/organomegaly/ascites Ext: warm, 2+ pulses in UE/LE bilaterally, +edema 2+ to knees Neuro: obtunded, no response to verbal or tactile stimuli, no verbal response Results & Data Results & Data ([facility]) Vital Signs (Past 12 Hours) Vital Signs Temp Pulse Resp BP Pulse Ox 08/26/20 06:15 38 L 16 113/57 L 94 08/26/20 05:46 39 L 16 119/56 L 98 08/26/20 05:31 41 L 16 126/76 98 08/26/20 05:15 39 L 16 131/65 98 08/26/20 05:00 40 L 16 148/73 H 98 08/26/20 04:34 100 08/26/20 04:32 43 L 12 149/65 H 100 08/26/20 04:30 100 08/26/20 04:19 42 L 12 160/76 H 100 08/26/20 03:30 30.9 C L 40 L 12 140/71 100 Laboratory Results Lab Results 08/26/20 08/26/20 08/26/20 Range/Units 04:05 04:05 04:05 WBC (4.8-10.8) K/uL RBC (4.7-6.1) M/uL Hgb (14.0-18.0) g/dL Hct (42-52) % MCV (80-100) fL MCH (25-34) pg MCHC (32-36) g/dL RDW Std Deviation (36.4-46.3) fL RDW Coeff of Kianna (11.5-14.5) % Plt Count (130-400) K/uL MPV (7.4-10.4) fL Immature Gran % (Auto) % Neut % (Auto) % Lymph % (Auto) % Hudspeth % (Auto) % Eos % (Auto) % Baso % (Auto) % Neut # (Auto) (1.4-6.5) K/uL Lymph # (Auto) (1.2-3.4) K/uL Hudspeth # (Auto) (0.11-0.59) K/uL Eos # (Auto) (0-0.5) K/uL Baso # (Auto) (0-0.2) K/uL Immature Gran # (Auto) (0.00-0.02) K/uL Absolute Nucleated RBC (0-0) K/uL Nucleated RBC % (auto) % Toxic Vacuolation Platelet Estimate (Normal) Sodium 146 H (136-145) mmol/L Potassium 4.5 (3.5-5.1) mmol/L Chloride 120 H (98-107) mmol/L Carbon Dioxide 20 L (21-32) mmol/L Anion Gap 6.0 (3-11) BUN 87 H (7-18) mg/dl Creatinine 3.05 H (0.6-1.4) mg/dl Est Cr Clr Drug Dosing 27.4 ml/min Est GFR ( Amer) 23.5 Est GFR (Non-Af Amer) 20.3 BUN/Creatinine Ratio 28.4 H (10-20) Glucose 209 H (70-99) mg/dl Lactate 1.4 (0.4-2.0) mmol/L Calcium 8.2 L (8.5-10.1) mg/dl Magnesium 2.4 (1.8-2.4) mg/dl Total Bilirubin 0.6 (0.2-1) mg/dl AST 30 (15-37) U/L ALT 31 (12-78) U/L Alkaline Phosphatase 142 H (45-117) U/L Ammonia 98.0 H (11-32) umol/L Troponin I < 0.015 (0-0.045) ng/ml Total Protein 7.4 (6.4-8.2) gm/dl Albumin 2.4 L (3.4-5.0) gm/dl Globulin 5.0 H (2.5-4.0) gm/dl Albumin/Globulin Ratio 0.5 L (0.9-2) TSH 1.540 (0.300-4.500) uIu/ml SARS-CoV-2 Ag (Rapid) (Negative) 08/26/20 08/26/20 Range/Units 04:05 06:04 WBC 4.31 L (4.8-10.8) K/uL RBC 2.66 L (4.7-6.1) M/uL Hgb 8.7 L (14.0-18.0) g/dL Hct 27.8 L (42-52) % MCV 104.5 H (80-100) fL MCH 32.7 (25-34) pg MCHC 31.3 L (32-36) g/dL RDW Std Deviation 66.1 H (36.4-46.3) fL RDW Coeff of Kianna 17.3 H (11.5-14.5) % Plt Count 81 L (130-400) K/uL MPV 11.6 H (7.4-10.4) fL Immature Gran % (Auto) 0.7 % Neut % (Auto) 84.9 % Lymph % (Auto) 8.4 % Hudspeth % (Auto) 6.0 % Eos % (Auto) 0.0 % Baso % (Auto) 0.0 % Neut # (Auto) 3.66 (1.4-6.5) K/uL Lymph # (Auto) 0.36 L (1.2-3.4) K/uL Hudspeth # (Auto) 0.26 (0.11-0.59) K/uL Eos # (Auto) 0.00 (0-0.5) K/uL Baso # (Auto) 0.00 (0-0.2) K/uL Immature Gran # (Auto) 0.03 H (0.00-0.02) K/uL Absolute Nucleated RBC 0.04 H (0-0) K/uL Nucleated RBC % (auto) 0.9 % Toxic Vacuolation 1+ Platelet Estimate Decreased L (Normal) Sodium (136-145) mmol/L Potassium (3.5-5.1) mmol/L Chloride (98-107) mmol/L Carbon Dioxide (21-32) mmol/L Anion Gap (3-11) BUN (7-18) mg/dl Creatinine (0.6-1.4) mg/dl Est Cr Clr Drug Dosing ml/min Est GFR ( Amer) Est GFR (Non-Af Amer) BUN/Creatinine Ratio (10-20) Glucose (70-99) mg/dl Lactate (0.4-2.0) mmol/L Calcium (8.5-10.1) mg/dl Magnesium (1.8-2.4) mg/dl Total Bilirubin (0.2-1) mg/dl AST (15-37) U/L ALT (12-78) U/L Alkaline Phosphatase (45-117) U/L Ammonia (11-32) umol/L Troponin I (0-0.045) ng/ml Total Protein (6.4-8.2) gm/dl Albumin (3.4-5.0) gm/dl Globulin (2.5-4.0) gm/dl Albumin/Globulin Ratio (0.9-2) TSH (0.300-4.500) uIu/ml SARS-CoV-2 Ag (Rapid) Negative (Negative) Diagnostic Findings STAT CT Head ordered ECG Additional Comments: SB at 44, low voltage QRS, SB=798, QRS=94, MEk=629 Critical Care Time Critical Care Time: Yes Total Critical Care Time: 45 PG Care Time/CCT Total # of Minutes Spent Total Time Spent with Patient: Total time spent is greater than 50% in coordination of care (as documented) at patient's floor/unit and/or counseling patient: Critical Care Time: Yes Total Critical Care Time: 45 Coding Level of Care Code None Diagnoses Obtundation R40.1 Bradycardia R00.1 Hypothermia T68.XXXA Encounter type: initial encounter Liver cirrhosis K74.60 Hepatic cirrhosis type: unspecified hepatic cirrhosis Ascites presence: without ascites Hypertension I10 Hypertension type: essential hypertension CKD (chronic kidney disease), stage IV N18.4 Esophageal varices without bleeding I85.00 Esophageal varices type: unspecified type Type 2 diabetes mellitus E11.9; Z79.4 Diabetes mellitus mcc insulin use: with intermodal customer service use Diabetes mellitus complication status: without complication GERD (gastroesophageal reflux disease) K21.9 Esophagitis presence: esophagitis presence not specified Additional Codes Critical Care Time - Critical Care Time: Yes ([id number]) (1) Hypertension Hypertension type: essential hypertension Qualified Code(s): I10 - Essential (primary) hypertension (2) Esophageal varices without bleeding Esophageal varices type: unspecified type Qualified Code(s): I85.00 - Esophageal varices without bleeding (3) Type 2 diabetes mellitus Diabetes mellitus mcc insulin use: with intermodal customer service use Diabetes mellitus complication status: without complication Qualified Code(s): E11.9 - Type 2 diabetes mellitus without complications; 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
--- NOTE | 2020-08-26 06:56 | XRay Report ---
XR chest 1V portable CLINICAL HISTORY: weakness COMPARISON STUDY: Chest radiograph August 21, 2020. FINDINGS: There is no pneumothorax. Small left pleural effusion is noted. There may be a trace right pleural effusion. Interstitial thickening and bilateral opacities are noted. There is suspected bibas ilar consolidation. Mild enlargement of the cardiac silhouette is noted. IMPRESSION: 1. Suspected bibasilar consolidation. An infectious process or aspiration is favored. Radiographic fo llow up is recommended. 2. Small left and trace right pleural effusions. ACT 112: Negative or not required by law. Electronically signed by: Polo Banegas M.D. 08/26/2020 6:55 AM
[2020-08-26] MEDS ORDERED: RAPID SEQUENCE INDUCTION BAG ONE (06:58)
[2020-08-26 07:48] LABS: iSTAT Arterial Blood Gas HCO3 19 meg/L (19-24); iSTAT Arterial Blood Gas pCO2 71 mmHg (35-46); iSTAT Arterial Blood Gas pH 7.03 (7.35-7.45); iSTAT Arterial Blood Gas pO2 76 mmHg (80-95); iSTAT Carbon Dioxide 21 mmol/L (24-31); iSTAT Hematocrit 24 % (42-52); iSTAT Hemoglobin 8.2 g/dl (14.0-18.0); iSTAT Potassium 4.7 mmol/L (3.3-5.0); iSTAT Sodium 148 mmol/L (135-144)
[2020-08-26 07:56] LABS: INR 1.4 (0.9-1.1); Partial Thromboplastin Ratio 1.3; Partial Thromboplastin Time 37.2 Seconds (21.0-31.0); Prothrombin Time 14.3 Seconds (9.0-12.0)
[2020-08-26] MEDS ORDERED: GLUCOSE 40% GEL 15 GM TUBE PO PRN (08:06)
[2020-08-26] MEDS ORDERED: CARBOHYDRATES FOR HYPOGLYCEMIA PO PRN (08:06)
[2020-08-26] MEDS ORDERED: ICU PROTOCOL FOR HYPERGLYCEMIA PRN (08:06)
[2020-08-26] MEDS ORDERED: VANCOMYCIN CONSULT ACTIVE PRN (08:06)
[2020-08-26] MEDS ORDERED: GLUCAGON FOR INJ 1 MG VIAL SQ PRN (08:06)
[2020-08-26] MEDS ORDERED: GLUCOSE 10 TABS/TUBE PO PRN (08:06)
[2020-08-26] MEDS ORDERED: DEXTROSE 50% 50 ML SYRINGE IV PRN (08:06)
--- NOTE | 2020-08-26 08:06 | Procedure Note ---
Procedure Note Date of Service August 26, 2020 Note ARTERIAL LINE PROCEDURE NOTE: Procedure: Arterial Line Placement Attending: Dr. Cordell Kuhn Provider: NERI Rutherford Indication: Monitoring on Pressors Anesthesia: None Line placed emergently following intubation and cardiac arrest. A time-out was completed verifying correct patient, procedure, site, positioning, and implant(s) or special equipment if applicable. Allens test was performed to ensure adequate perfusion. Patients left wrist was prepped and draped in the usual sterile fashion. Ultrasound guidance was used to aid needle placement. A 20g Arrow arterial line was introduced into the left radial artery. Catheter was threaded, and the needle was removed with appropriate blood return. Good waveform was observed. The patient tolerated the procedure well. Confirmation of placement with ultrasound. Blood Loss: Minimal Complications: None Procedural Ultrasound Guidance: Procedure Date: 08/26/2020 Indication: Arterial line insertion Attending: Dr. Cordell Kuhn Provider: NERI Rutherford Artery Identified: YES Line confirmed in Artery with ultrasound: Yes Complications: NONE Patient tolerated procedure: WELL Supervising Physician Co-Signing Physician Notes I was present during the entire procedure Coding CPT Codes Tubes, Drains, and Vasc Access - Tubes, Drains, and Vasc Access: [id number] Place Catheter In Artery ([id number]) Tubes, Drains, and Vasc Access - Tubes, Drains, and Vasc Access: [id number] Ultrasound Guidance For Vascular ([id number]) [facility] [place] Procedure Codes (Charges) Tubes, Drains, and Vasc Access Procedure 3: Tubes, Drains, and Vasc Access: [id number] Place Catheter In Artery Procedure 4: Tubes, Drains, and Vasc Access: [id number] Ultrasound Guidance For Vascular
[2020-08-26] MEDS ORDERED: GLUCAGON 3 MG in SYRINGE 0 ML IV ONE ×2 (08:15→09:45)
--- NOTE | 2020-08-26 08:19 | Procedure Note ---
Procedure Note Date of Service August 26, 2020 Procedure date: Noted above Procedure: Central venous access Pre-procedure indication: Severe hypothermia need for central venous access for targeted temperature management Post-procedure Diagnosis: same as above Prior to Procedure: Informed Consent: Emergent consent implied. Attending Staff: Juan Ramon Kuhn DO Resident/APC: Not applicable Skin Prep: Chlorhexidine The identity of the patient was confirmed and a bedside time out was performed. Description of Procedure: After sterile prep and sterile drape utilizing standard sterile technique the superficial skin of the right subclavian area was anesthetized. The target vessel was identified and entered with an 18-gauge needle. Dark venous blood return was noted. A guidewire was inserted through the needle and into the vessel. The needle was withdrawn and a skin maria g was made. A tissue dilator was advanced via Seldinger technique and removed. A 5 lumen catheter was inserted via Seldinger technique and the guidewire removed. All ports isidro and flushed easily. A Biopatch was placed, and the catheter was secured via silk suture. A sterile dressing was then applied. Complications: None Estimated blood loss: Trace Patient tolerated the procedure well. Coding CPT Codes Tubes, Drains, and Vasc Access - Tubes, Drains, and Vasc Access: [id number] Insertion Of Non-tunneled Catheter Age 4 Yrs> ([id number]) [facility] [place] Procedure Codes (Charges) Tubes, Drains, and Vasc Access Procedure 1: Tubes, Drains, and Vasc Access: [id number] Insertion Of Non-tunneled Catheter Age 4 Yrs>
--- NOTE | 2020-08-26 08:27 | XRay Report ---
XR chest 1V portable CLINICAL HISTORY: intubation, cvc insertion COMPARISON STUDY: Chest radiograph performed earlier today. FINDINGS: The tip of the endotracheal tube is approximately 8.4 cm above the lizette. Tip of nasogastr ic tube is below the lower aspect of this image but at least within the proximal stomach. Moderate ca rdiomegaly is noted. There is no pneumothorax. Tip of right subclavian central line projects over the cavoatrial junction. Bilateral pleural effusions are noted. There is interstitial thickening and bib asilar consolidation. IMPRESSION: 1. Tip of endotracheal tube approximately 8.4 cm above the lizette. The tube could be advanced 2 cm. 2. No pneumothorax following placement of a right subclavian central line. 3. Cardiomegaly with suspected pulmonary edema. 4. Basilar opacities which could reflect consolidation or atelectasis. 5. Bilateral pleural effusions, right larger than left. ACT 112: Negative or not required by law. Electronically signed by: Polo Banegas M.D. 08/26/2020 8:26 AM
[2020-08-26] MEDS ORDERED: VANCOMYCIN HCL 2,000 MG in SODIUM CHLORIDE 0.9% 500 ML IV ONE (08:30)
[2020-08-26] MEDS ORDERED: LACTATED RINGER'S 1,000 ML IV SCH (08:30)
[2020-08-26] MEDS: FAMOTIDINE 20 MG in SYRINGE 3 ML IV SCH (08:31)
[2020-08-26] MEDS: cefTRIAXone SODIUM 2,000 MG in DEXTROSE 5% 50 ML IV SCH (08:31)
[2020-08-26 08:35] LABS: iSTAT Arterial Blood Gas HCO3 20 meg/L (19-24); iSTAT Arterial Blood Gas pCO2 45 mmHg (35-46); iSTAT Arterial Blood Gas pH 7.25 (7.35-7.45); iSTAT Arterial Blood Gas pO2 116 mmHg (80-95); iSTAT Carbon Dioxide 21 mmol/L (24-31); iSTAT FiO2 60 %; iSTAT Site Art Line
[2020-08-26] MEDS: Standard Conc 16mcg/mL; 8mg in 500mL IV SCH (08:54)
[2020-08-26] MEDS: INSULIN ASPART 100 UNITS/ML 3 ML PEN SC SCH ×4 (08:59→20:47)
[2020-08-26] MEDS ORDERED: INSULIN GLARGINE SOLOSTAR 100 UNITS/ML 3 ML PEN SC SCH (09:00)
[2020-08-26] MEDS ORDERED: LACTULOSE 200 GM, WATER, STERILE IRRIG 700 ML, BARCODE IDENTIFIER 1 EA PR SCH (09:00)
[2020-08-26] MEDS: rifAXIMin 550 MG TABLET PO SCH ×2 (09:02→20:46)
--- NOTE | 2020-08-26 09:50 | Critical Care Consultation ---
Date of Consultation August 26, 2020 Assessment & Plan (1) Cardiac arrest following intubation: Reason Critically Ill: Profound hypothermia, respiratory arrest followed by cardiac arrest PLAN: Neuro: Acute encephalopathy -Presumptive metabolic: -Hepatic encephalopathy -Lactulose via NG tube, restart rifaximin Resp: Acute respiratory failure -Secondary to profound metabolic acidosis -Worsened with end-stage kidney disease patient does not want dialysis (this is known from previous records) CV: Hypothermia -Undergoing active rewarming with temperature management catheter Hypotension -Potential infectious etiology versus profound hypothermia, end-stage liver disease Cardiac arrest -Responded to approximately 30 seconds of CPR and 1 round of epinephrine, I believe this was secondary to profound acidosis and hypothermia prior to intubation -No indication for cooling will actually rewarm Fluids/Renal: End-stage renal disease -Acute metabolic acidosis -Finn for strict I's and O's -Hyperchloremia and hypernatremia -Holding additional fluids will bolus with 50 g of 25% albumin ID: Empiric vancomycin and Rocephin -Consideration will be given to diagnostic paracentesis GI/Nutrition: N.p.o. End-stage liver disease secondary to hepatitis C -History of esophageal varices Heme: Baseline anemia DVT prophylaxis: Heparin 5000 twice daily Endocrine: ICU hyperglycemia protocol Vascular access: Right subclavian temperature management catheter Code Status: Full code, will investigate he was previously DNR/DNI Disposition: ICU (2) Hypothermia: (3) Bradycardia: (4) Obtundation: (5) Anasarca: Supervising Physician Co-Signing Physician Notes Patient was discussed on multidisciplinary rounds I have personally spent 55 minutes of critical care time in the direct management of this patient. This is a life/limb threatening event. This includes time spent evaluating patient, direct bedside care, chart review, placing orders, interpretation of diagnostic studies, discussion with consultan ts, patient, and/or family members regarding treatment decisions, as well as other required patient management activities. This time is exclusive of all separately billable procedures, and teaching time and separate from and in addition to any other critical care service time. History of Present Illness Attending Physician: Stormy Yang DO Allergies Allergy/AdvReac Type Severity Reaction Status Date / Time No Known Drug Allergies Allergy NKDA Unverified 08/26/20 04:25 Home Medications Medication Instructions Recorded Confirmed Type lactulose 20 g PO TID PRN 06/28/20 08/26/20 History Novolin 70/30 U-100 Insulin 30 unit SUBCUT QAM 08/21/20 08/26/20 History Novolin R Regular U-100 Insuln 1 sliding scale dose SUBCUT 08/21/20 08/26/20 History USEASDIRECTD Xifaxan 550 mg PO BID 08/21/20 08/26/20 History bumetanide 1 mg PO DAILY 08/21/20 08/26/20 History levalbuterol tartrate [Xopenex HFA] 2 inh INHALATION QID 08/21/20 08/26/20 History nadolol 40 mg PO BID 08/21/20 08/26/20 History spironolactone 100 mg PO DAILY 08/21/20 08/26/20 History witch beulah-glycerin (hamamel) 1 pad TOPICAL TID PRN 08/21/20 08/26/20 History zinc oxide 1 applic TOPICAL BID 08/21/20 08/26/20 History Patient History Medical History Acute hepatic encephalopathy Acute kidney injury Allergic rhinitis Anemia, unspecified Chronic kidney disease, unspecified Confusion Esophageal varices without bleeding Flatulence GERD (gastroesophageal reflux disease) HCV (hepatitis C virus) Treated Hyperlipidemia Hypertension Liver cirrhosis Low back pain Metabolic acidosis Microscopic hematuria Onychomycosis Palliative care encounter Partial small bowel obstruction Proteinuria Pruritus, unspecified Type 2 diabetes mellitus Umbilical hernia without obstruction or gangrene Social History Smoking Status: Former smoker Second Hand Exposure: No; Hx Alcohol Use: No Hx Substance Use: No Preferred Language: Cymro Communication Ability: Impaired Public Records Researcher Required: No Beliefs That Will Affect Care: None Current Living Situation: Legal Guardian and Other Current Living Situation Comment: DEEPIKA Braxton Feels Safe at Home: Yes Assistive Devices: Wheelchair Review of Systems Review of Systems: Unobtainable due to endotracheal tube and Unobtainable due to reduced consciousness Physical Exam Physical Exam: General: Somnolent. nontoxic. Glascow Coma Scale: Eyes: 2, Verbal 1T, Motor 5, Total 8T Skin: Warm, dry, Head: Atraumatic Ears, nose, mouth and throat: airway obscured by endotracheal tube Cardiovascular: Normal peripheral perfusion Respiratory: no respiratory distress Gastrointestinal: Rotund, umbilical hernia that is freely reducible Musculoskeletal: No deformity Results & Data Results & Data ([facility]) Vital Signs (Past 12 Hours) Vital Signs Temp Pulse Resp BP Pulse Ox 08/26/20 09:20 41 L 100 08/26/20 09:15 46 L 100 08/26/20 09:10 47 L 100 08/26/20 09:05 46 L 100 08/26/20 09:00 45 L 100 08/26/20 08:55 45 L 100 08/26/20 08:50 46 L 100 08/26/20 08:45 45 L 100 08/26/20 08:40 45 L 100 08/26/20 08:35 46 L 100 08/26/20 08:30 46 L 100 08/26/20 08:25 47 L 100 08/26/20 08:20 47 L 100 08/26/20 08:15 47 L 08/26/20 08:14 16 08/26/20 08:10 47 L 100 08/26/20 08:05 47 L 08/26/20 08:00 45 L 100 08/26/20 07:47 20 08/26/20 07:18 52 L 20 100 08/26/20 06:31 39 L 16 102/65 93 08/26/20 06:15 38 L 16 113/57 L 94 08/26/20 05:46 39 L 16 119/56 L 98 08/26/20 05:31 41 L 16 126/76 98 08/26/20 05:15 39 L 16 131/65 98 08/26/20 05:00 40 L 16 148/73 H 98 08/26/20 04:34 100 08/26/20 04:32 43 L 12 149/65 H 100 08/26/20 04:30 100 08/26/20 04:19 42 L 12 160/76 H 100 08/26/20 03:30 30.9 C L 40 L 12 140/71 100 Laboratory Results 08/26/20 08/26/20 08/26/20 Range/Units 11:47 08:50 08:04 WBC (4.8-10.8) K/uL RBC (4.7-6.1) M/uL Hgb (14.0-18.0) g/dL POC Hgb (14.0-18.0) g/dl Hct (42-52) % POC Hct (42-52) % MCV (80-100) fL MCH (25-34) pg MCHC (32-36) g/dL RDW Std Deviation (36.4-46.3) fL RDW Coeff of Kianna (11.5-14.5) % Plt Count (130-400) K/uL MPV (7.4-10.4) fL Immature Gran % (Auto) % Neut % (Auto) % Lymph % (Auto) % [place] % (Auto) % Eos % (Auto) % Baso % (Auto) % Neut # (Auto) (1.4-6.5) K/uL Lymph # (Auto) (1.2-3.4) K/uL [place]on # (Auto) (0.11-0.59) K/uL Eos # (Auto) (0-0.5) K/uL Baso # (Auto) (0-0.2) K/uL Immature Gran # (Auto) (0.00-0.02) K/uL Absolute Nucleated RBC (0-0) K/uL Nucleated RBC % (auto) % Toxic Vacuolation Platelet Estimate (Normal) PT (9.0-12.0) Seconds INR (0.9-1.1) APTT (21.0-31.0) Seconds PTT Ratio Sample Site Art Line POC pH 7.25 L (7.35-7.45) POC pCO2 45 (35-46) mmHg POC pO2 116 H (80-95) mmHg POC HCO3 20 (19-24) waldemar/L POC Total CO2 21 L (24-31) mmol/L POC Base Excess -8.0 (-9-1.8) waldemar/L POC ABG O2 Sat 98.0 H (90-95) % Ba Test NA O2 Delivery Device Ventilator POC O2 Rate 20 POC FiO2 60 % Tidal Volume 450 PEEP 8 POC Sodium (135-144) mmol/L Sodium (136-145) mmol/L POC Potassium (3.3-5.0) mmol/L Potassium (3.5-5.1) mmol/L Chloride (98-107) mmol/L Carbon Dioxide (21-32) mmol/L Anion Gap (3-11) BUN (7-18) mg/dl Creatinine (0.6-1.4) mg/dl Est Cr Clr Drug Dosing ml/min Est GFR ( Amer) Est GFR (Non-Af Amer) BUN/Creatinine Ratio (10-20) Glucose (70-99) mg/dl POC Glucose 235 H 215 H (70-99) mg/dl Lactate (0.4-2.0) mmol/L Calcium (8.5-10.1) mg/dl Magnesium (1.8-2.4) mg/dl Total Bilirubin (0.2-1) mg/dl AST (15-37) U/L ALT (12-78) U/L Alkaline Phosphatase (45-117) U/L Ammonia (11-32) umol/L Troponin I (0-0.045) ng/ml Total Protein (6.4-8.2) gm/dl Albumin (3.4-5.0) gm/dl Globulin (2.5-4.0) gm/dl Albumin/Globulin Ratio (0.9-2) Procalcitonin (0-0.5) ng/ml TSH (0.300-4.500) uIu/ml SARS-CoV-2 Ag (Rapid) (Negative) 08/26/20 08/26/20 08/26/20 Range/Units 06:59 06:57 06:04 WBC (4.8-10.8) K/uL RBC (4.7-6.1) M/uL Hgb (14.0-18.0) g/dL POC Hgb 8.2 L (14.0-18.0) g/dl Hct (42-52) % POC Hct 24 L (42-52) % MCV (80-100) fL MCH (25-34) pg MCHC (32-36) g/dL RDW Std Deviation (36.4-46.3) fL RDW Coeff of Kianna (11.5-14.5) % Plt Count (130-400) K/uL MPV (7.4-10.4) fL Immature Gran % (Auto) % Neut % (Auto) % Lymph % (Auto) % [place] % (Auto) % Eos % (Auto) % Baso % (Auto) % Neut # (Auto) (1.4-6.5) K/uL Lymph # (Auto) (1.2-3.4) K/uL Mac[place] # (Auto) (0.11-0.59) K/uL Eos # (Auto) (0-0.5) K/uL Baso # (Auto) (0-0.2) K/uL Immature Gran # (Auto) (0.00-0.02) K/uL Absolute Nucleated RBC (0-0) K/uL Nucleated RBC % (auto) % Toxic Vacuolation Platelet Estimate (Normal) PT (9.0-12.0) Seconds INR (0.9-1.1) APTT (21.0-31.0) Seconds PTT Ratio Sample Site POC pH 7.03 L* (7.35-7.45) POC pCO2 71 H (35-46) mmHg POC pO2 76 L (80-95) mmHg POC HCO3 19 (19-24) waldemar/L POC Total CO2 21 L (24-31) mmol/L POC Base Excess -12.0 L (-9-1.8) waldemar/L POC ABG O2 Sat 86.0 L (90-95) % Ba Test O2 Delivery Device POC O2 Rate POC FiO2 % Tidal Volume PEEP POC Sodium 148 H (135-144) mmol/L Sodium (136-145) mmol/L POC Potassium 4.7 (3.3-5.0) mmol/L Potassium (3.5-5.1) mmol/L Chloride (98-107) mmol/L Carbon Dioxide (21-32) mmol/L Anion Gap (3-11) BUN (7-18) mg/dl Creatinine (0.6-1.4) mg/dl Est Cr Clr Drug Dosing ml/min Est GFR ( Amer) Est GFR (Non-Af Amer) BUN/Creatinine Ratio (10-20) Glucose (70-99) mg/dl POC Glucose (70-99) mg/dl Lactate (0.4-2.0) mmol/L Calcium (8.5-10.1) mg/dl Magnesium (1.8-2.4) mg/dl Total Bilirubin (0.2-1) mg/dl AST (15-37) U/L ALT (12-78) U/L Alkaline Phosphatase (45-117) U/L Ammonia (11-32) umol/L Troponin I (0-0.045) ng/ml Total Protein (6.4-8.2) gm/dl Albumin (3.4-5.0) gm/dl Globulin (2.5-4.0) gm/dl Albumin/Globulin Ratio (0.9-2) Procalcitonin 0.11 (0-0.5) ng/ml TSH (0.300-4.500) uIu/ml SARS-CoV-2 Ag (Rapid) Negative (Negative) 08/26/20 08/26/20 08/26/20 Range/Units 04:05 04:05 04:05 WBC 4.31 L (4.8-10.8) K/uL RBC 2.66 L (4.7-6.1) M/uL Hgb 8.7 L (14.0-18.0) g/dL POC Hgb (14.0-18.0) g/dl Hct 27.8 L (42-52) % POC Hct (42-52) % MCV 104.5 H (80-100) fL MCH 32.7 (25-34) pg MCHC 31.3 L (32-36) g/dL RDW Std Deviation 66.1 H (36.4-46.3) fL RDW Coeff of Kianna 17.3 H (11.5-14.5) % Plt Count 81 L (130-400) K/uL MPV 11.6 H (7.4-10.4) fL Immature Gran % (Auto) 0.7 % Neut % (Auto) 84.9 % Lymph % (Auto) 8.4 % Macon % (Auto) 6.0 % Eos % (Auto) 0.0 % Baso % (Auto) 0.0 % Neut # (Auto) 3.66 (1.4-6.5) K/uL Lymph # (Auto) 0.36 L (1.2-3.4) K/uL Macon # (Auto) 0.26 (0.11-0.59) K/uL Eos # (Auto) 0.00 (0-0.5) K/uL Baso # (Auto) 0.00 (0-0.2) K/uL Immature Gran # (Auto) 0.03 H (0.00-0.02) K/uL Absolute Nucleated RBC 0.04 H (0-0) K/uL Nucleated RBC % (auto) 0.9 % Toxic Vacuolation 1+ Platelet Estimate Decreased L (Normal) PT 14.3 H (9.0-12.0) Seconds INR 1.4 H (0.9-1.1) APTT 37.2 H (21.0-31.0) Seconds PTT Ratio 1.3 Sample Site POC pH (7.35-7.45) POC pCO2 (35-46) mmHg POC pO2 (80-95) mmHg POC HCO3 (19-24) waldemar/L POC Total CO2 (24-31) mmol/L POC Base Excess (-9-1.8) waldemar/L POC ABG O2 Sat (90-95) % Ba Test O2 Delivery Device POC O2 Rate POC FiO2 % Tidal Volume PEEP POC Sodium (135-144) mmol/L Sodium (136-145) mmol/L POC Potassium (3.3-5.0) mmol/L Potassium (3.5-5.1) mmol/L Chloride (98-107) mmol/L Carbon Dioxide (21-32) mmol/L Anion Gap (3-11) BUN (7-18) mg/dl Creatinine (0.6-1.4) mg/dl Est Cr Clr Drug Dosing ml/min Est GFR ( Amer) Est GFR (Non-Af Amer) BUN/Creatinine Ratio (10-20) Glucose (70-99) mg/dl POC Glucose (70-99) mg/dl Lactate (0.4-2.0) mmol/L Calcium (8.5-10.1) mg/dl Magnesium (1.8-2.4) mg/dl Total Bilirubin (0.2-1) mg/dl AST (15-37) U/L ALT (12-78) U/L Alkaline Phosphatase (45-117) U/L Ammonia 98.0 H (11-32) umol/L Troponin I (0-0.045) ng/ml Total Protein (6.4-8.2) gm/dl Albumin (3.4-5.0) gm/dl Globulin (2.5-4.0) gm/dl Albumin/Globulin Ratio (0.9-2) Procalcitonin (0-0.5) ng/ml TSH (0.300-4.500) uIu/ml SARS-CoV-2 Ag (Rapid) (Negative) 08/26/20 08/26/20 Range/Units 04:05 04:05 WBC (4.8-10.8) K/uL RBC (4.7-6.1) M/uL Hgb (14.0-18.0) g/dL POC Hgb (14.0-18.0) g/dl Hct (42-52) % POC Hct (42-52) % MCV (80-100) fL MCH (25-34) pg MCHC (32-36) g/dL RDW Std Deviation (36.4-46.3) fL RDW Coeff of Kianna (11.5-14.5) % Plt Count (130-400) K/uL MPV (7.4-10.4) fL Immature Gran % (Auto) % Neut % (Auto) % Lymph % (Auto) % [place] % (Auto) % Eos % (Auto) % Baso % (Auto) % Neut # (Auto) (1.4-6.5) K/uL Lymph # (Auto) (1.2-3.4) K/uL [place]on # (Auto) (0.11-0.59) K/uL Eos # (Auto) (0-0.5) K/uL Baso # (Auto) (0-0.2) K/uL Immature Gran # (Auto) (0.00-0.02) K/uL Absolute Nucleated RBC (0-0) K/uL Nucleated RBC % (auto) % Toxic Vacuolation Platelet Estimate (Normal) PT (9.0-12.0) Seconds INR (0.9-1.1) APTT (21.0-31.0) Seconds PTT Ratio Sample Site POC pH (7.35-7.45) POC pCO2 (35-46) mmHg POC pO2 (80-95) mmHg POC HCO3 (19-24) waldemar/L POC Total CO2 (24-31) mmol/L POC Base Excess (-9-1.8) waldemar/L POC ABG O2 Sat (90-95) % Ba Test O2 Delivery Device POC O2 Rate POC FiO2 % Tidal Volume PEEP POC Sodium (135-144) mmol/L Sodium 146 H (136-145) mmol/L POC Potassium (3.3-5.0) mmol/L Potassium 4.5 (3.5-5.1) mmol/L Chloride 120 H (98-107) mmol/L Carbon Dioxide 20 L (21-32) mmol/L Anion Gap 6.0 (3-11) BUN 87 H (7-18) mg/dl Creatinine 3.05 H (0.6-1.4) mg/dl Est Cr Clr Drug Dosing 27.4 ml/min Est GFR ( Amer) 23.5 Est GFR (Non-Af Amer) 20.3 BUN/Creatinine Ratio 28.4 H (10-20) Glucose 209 H (70-99) mg/dl POC Glucose (70-99) mg/dl Lactate 1.4 (0.4-2.0) mmol/L Calcium 8.2 L (8.5-10.1) mg/dl Magnesium 2.4 (1.8-2.4) mg/dl Total Bilirubin 0.6 (0.2-1) mg/dl AST 30 (15-37) U/L ALT 31 (12-78) U/L Alkaline Phosphatase 142 H (45-117) U/L Ammonia (11-32) umol/L Troponin I < 0.015 (0-0.045) ng/ml Total Protein 7.4 (6.4-8.2) gm/dl Albumin 2.4 L (3.4-5.0) gm/dl Globulin 5.0 H (2.5-4.0) gm/dl Albumin/Globulin Ratio 0.5 L (0.9-2) Procalcitonin (0-0.5) ng/ml TSH 1.540 (0.300-4.500) uIu/ml SARS-CoV-2 Ag (Rapid) (Negative) Coding Level of Care Code Critical Care 1st 30-74 mins Diagnoses Cardiac arrest following intubation I97.89; I46.9 Hypothermia T68.XXXA Encounter type: initial encounter Bradycardia R00.1 Obtundation R40.1 Anasarca R60.1 Time Spent (min) 50 Comment Patient was discussed in multidisciplinary rounds I have personally spent 50 minutes of cr (1) Hypothermia Encounter type: initial encounter Qualified Code(s): T68.XXXA - Hypothermia, initial encounter
--- NOTE | 2020-08-26 09:59 | Electrocardiogram Report ---
Test Reason : Blood Pressure : / mmHG Vent. Rate : 044 BPM Atrial Rate : 044 BPM P-R Int : 144 ms QRS Dur : 094 ms QT Int : 650 ms P-R-T Axes : 049 035 -04 degrees QTc Int : 555 ms Marked sinus bradycardia Low voltage QRS Prolonged QT Abnormal ECG When compared with ECG of 21-AUG-2020 04:26, Vent. rate has decreased BY 26 BPM QT has lengthened Confirmed by Ariel Hazel ([id number]) on 08/26/2020 9:58:45 AM Referred By: REFERRED SELF Confirmed By:Ariel Hazel
[2020-08-26] MEDS: ALBUMIN 25% 12.5 GM/50 ML VIAL IV SCH ×4 (11:13→14:10)
[2020-08-26] MEDS: THIAMINE HCL 100 MG in SYRINGE 9 ML IV SCH (11:14)
[2020-08-26] MEDS ORDERED: PHARMACY GLYCEMIC MGMT CONSULT PRN (14:52)
--- NOTE | 2020-08-26 15:02 | Pharmacy Report ---
Pharmacy Glycemic Short Note 2 - Date of Service August 26, 2020 - Glycemic Short BSG Results (Last 24 hours): 08/26/20 08/26/20 08/26/20 04:05 08:50 11:47 Glucose 209 H POC Glucose 215 H 235 H OUTPATIENT ANTIDIABETIC REGIMEN: * NPH 30 units Q AM * Regular insulin per sliding scale ASSESSMENT: * Type 2 diabetic admitted to ICU for encephalopathy, hypothermia, respiratory acidosis, Code Blue while in ED * Patient has been extubated this AM however remains on norepinephrine pressor support. He remains NPO. * BSGs have remained in the 200s despite current insulin orders, auto Pharmacy Consult for glycemic control triggered per ICU protocol * Will initiate a basal/bolus SQ regimen based upon an anticipated today daily insulin dose of ~0.5-0.6units/kg/day initially. Will rely upon Q 4 hr Novolog to provide a portion of the "basal" needs given this patient's risk factors for hypoglycemia (NPO, cirrhosis, changing pressor requirements). Lantus will be dosed per scale to also provide an element of protection PLAN FOR INPATIENT GLYCEMIC CONTROL: * Basal insulin * Lantus SQ BID per scale: * 0 units if BSG less than 110 * 5 units if BSG 110-140 * 10 units if BSG greater than 140 * Bolus insulin * NovoLog per scale Q 4 hr per scale: PLAN FOR DISCHARGE: * to be determined
[2020-08-26] MEDS ORDERED: FUROSEMIDE 40 MG/4 ML VIAL IV ONE (15:12)
--- NOTE | 2020-08-26 15:17 | Pharmacy Report ---
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 UOP however appears poor. UOP < 0.5mL/kg/hr per documentation thus far today. MAPs this AM > 65 Plan Vancomycin * 2000mg (20mg/kg) loading dose x 1 given this AM * Estimated half-life ~24+ hrs. Given UOP < 0.25mL/kg/hr, will check random level w/ AM labs tomorrow to guide redosing. * Goal trough level for septic shock, unknown source : 15 to 20 mcg/mL (patient is not a candidate for AUC dosing) Pharmacy will continue to follow and will adjust dose/frequency as necessary. Thank you.
[2020-08-26] MEDS: LACTULOSE SYRUP 30 GM/45 ML UDP PO SCH ×2 (17:01→20:46)
[2020-08-26 17:04] LABS: Appearance Urine Turbid (Clear); Bacteria Urine Automated Negative (Negative); Bilirubin Urine Negative (Negative); Blood Urine 2+ (Negative); Color Urine Dark Yellow; Epithelial Cell Urine Auto >30 /lpf (0-5); Glucose Urine UA Trace (Negative); Ketones Urine Negative (Negative); Leukocyte Esterase Urine Trace (Negative); Nitrite Urine Negative (Negative); Protein Urine 3+ (Negative); Specific Gravity Urine 1.024 (1.000-1.030); Urobilinogen Urine Negative (Negative); WBC Urine Automated >30 /hpf (0-5)
[2020-08-26 17:29] LABS: Amphetamines+Metham, Urine Neg (Neg); Barbiturates, Urine Neg (Neg); Benzodiazepine, Urine Neg (Neg); Cocaine, Urine Neg (Neg); MDMA (Ecstacy), Urine Neg (Neg); Methadone, Urine Neg (Neg); Opiate, Urine Neg (Neg); Phencyclidine, Urine Neg (Neg)
[2020-08-26] MEDS: HEPARIN SOD 5,000 UNIT/0.5 ML VIAL SQ SCH (20:46)
[2020-08-26] MEDS: INSULIN GLARGINE SOLOSTAR 100 UNITS/ML 3 ML PEN SC SCH (20:47)
[2020-08-26] MEDS ORDERED: ATROPINE SULFATE 0.1 MG/ML 10ML SYR IV ONE (21:35)
[2020-08-26] MEDS ORDERED: SODIUM BICARB 8.4% INJ 50 MEQ/50 ML SYR IV ONE (21:35)
[2020-08-27] MEDS: INSULIN ASPART 100 UNITS/ML 3 ML PEN SC SCH ×6 (00:13→20:52)
[2020-08-27 01:38] LABS: iSTAT Arterial Blood Gas HCO3 17 meg/L (19-24); iSTAT Arterial Blood Gas pCO2 34 mmHg (35-46); iSTAT Arterial Blood Gas pO2 70 mmHg (80-95); iSTAT Carbon Dioxide 18 mmol/L (24-31); iSTAT Site Art Line
[2020-08-27 04:31] LABS: Hematocrit (blood only) 20.7 % (42-52); Hemoglobin 6.7 g/dL (14.0-18.0); Mean Corpuscular Hemoglobin 33.3 pg (25-34); Mean Corpuscular Hgb Conc 32.4 g/dL (32-36); Mean Platelet Volume 11.1 fL (7.4-10.4); Nucleated RBC # (auto) 0.03 K/uL (0-0); Nucleated RBC % (auto) 0.7 %; Platelet Count 58 K/uL (130-400); RDW Coefficient of Variation 17.6 % (11.5-14.5); RDW Standard Deviation 65.9 fL (36.4-46.3); Red Blood Count 2.01 M/uL (4.7-6.1); White Blood Count 4.98 K/uL (4.8-10.8)
[2020-08-27] MEDS ORDERED: SODIUM CHLORIDE 0.9% 250 ML IV PRN ×2 (04:33→04:45)
[2020-08-27 04:42] LABS: Albumin Level 2.5 gm/dl (3.4-5.0); BUN Creatinine Ratio 26.4 (10-20); Calcium 8.1 mg/dl (8.5-10.1); Creatinine Clr Calc Pharmacy 23.7 ml/min; Est GFR (African American) 19.7; Magnesium 2.3 mg/dl (1.8-2.4); Potassium 3.8 mmol/L (3.5-5.1)
[2020-08-27 04:45] LABS: Albumin Globulin Ratio 0.6 (0.9-2); Bilirubin,Total 0.5 mg/dl (0.2-1); Total Protein 6.5 gm/dl (6.4-8.2)
[2020-08-27 04:55] LABS: Eosinophils # (auto) 0.04 K/uL (0-0.5); Eosinophils % (auto) 0.8 %; Giant Platelets 2+; Lymphocytes # (auto) 0.39 K/uL (1.2-3.4); Lymphocytes % (auto) 7.8 %; Monocytes % (auto) 14.1 %; Neutrophils # (auto) 3.85 K/uL (1.4-6.5); Neutrophils % (auto) 77.3 %
[2020-08-27 05:53] LABS: Fibrinogen 188 mg/dl (184-400); INR 1.5 (0.9-1.1); Partial Thromboplastin Ratio 1.4; Partial Thromboplastin Time 38.2 Seconds (21.0-31.0); Prothrombin Time 15.1 Seconds (9.0-12.0)
[2020-08-27] MEDS: POTASSIUM CHLORIDE / WTR 10 MEQ/100 ML PLCT IV SCH ×2 (06:20→07:22)
[2020-08-27 07:04] LABS: D Dimer 6360 ug/L FEU (0-500)
--- NOTE | 2020-08-27 07:13 | CT Scan Report ---
CT SCAN OF THE BRAIN WITHOUT IV CONTRAST CLINICAL HISTORY: Change in mental status. COMPARISON STUDY: CT of the brain dated 06/03/2020. TECHNIQUE: Unenhanced axial CT scan of the brain is performed from the vertex to the skull base. A do se lowering technique was utilized adhering to the principles of ALARA. CT DOSE: 729.78 mGycm FINDINGS: Brain parenchyma: There are age-related involutional changes noting minimal subcortical and perivent ricular microangiopathic change. There is no hemorrhage, mass effect, or evidence of acute territoria l ischemia by CT criteria. Thorne-white matter differentiation is preserved. No extra-axial fluid colle ction is seen. Ventricles, sulci, cisterns: Prominent secondary to involutional change. Intracranial vasculature: There is atherosclerotic calcification of the cavernous carotid and vertebr al arteries. Calvarium: Unremarkable. Sinuses and mastoids: There is mild mucosal thickening with air-fluid level in the left maxillary ant rum. Trace mucosal thickening is noted in the sphenoid sinuses. There is trace right mastoid effusion . Orbits: The bony orbits are grossly intact. IMPRESSION: There is no hemorrhage, mass effect, or evidence of acute territorial ischemia by CT carmen roberts. ACT 112: Negative or not required by law. Electronically signed by: Juan Antonio Gibbs M.D. 08/27/2020 7:12 AM
--- NOTE | 2020-08-27 07:39 | Critical Care Progress Note ---
Date of Service August 27, 2020 Assessment & Plan (1) Cardiac arrest following intubation: Reason Critically Ill: Profound hypothermia, respiratory arrest followed by cardiac arrest PLAN: Neuro: Acute encephalopathy: Significant improvement -Presumptive metabolic: -Hepatic encephalopathy -Lactulose p.o., restart rifaximin Resp: Acute respiratory failure: Resolved -Secondary to profound metabolic acidosis -Worsened with end-stage kidney disease patient does not want dialysis (this is known from previous records) CV: Hypothermia: Improved -Discontinued temperature management catheter today Hypotension: Resolved Cardiac arrest -Responded to approximately 30 seconds of CPR and 1 round of epinephrine -No apparent ill effects Fluids/Renal: End-stage renal disease -Acute metabolic acidosis Hypernatremia and hyperchloremia -Finn for strict I's and O's -Hyperchloremia and hypernatremia -50 g of 25% albumin given on 08/26 -500 mg Diuril twice daily x2 doses on 08/27 ID: Empiric vancomycin and Rocephin -Continue 48 hours total -Blood cultures no growth to date, no oxygen deficit, urine culture pending -No obvious source aside from hypothermia -Consideration will be given to diagnostic paracentesis -No abdominal pain, will defer at this time GI/Nutrition: Heart healthy diet with 1800 mL fluid restriction and low protein End-stage liver disease secondary to hepatitis C -History of esophageal varices Heme: Baseline anemia -1 unit packed red blood cells for hemoglobin of 6.7 -Suspect bone marrow suppression and dilution: Reticulocyte count pending DVT prophylaxis: Heparin 5000 twice daily: Holding today Endocrine: ICU hyperglycemia protocol Vascular access: Right subclavian temperature management catheter discontinued 08/27 Arterial line: Discontinued 08/27 Code Status: Reviewed prior CODE STATUS documentation we will continue with current CODE STATUS until patient can participate in future discussions Disposition: Stable for downgrade out of ICU (2) Hypothermia: (3) Bradycardia: (4) Obtundation: (5) Anasarca: Admission and Anticipated Discharge Date Admission Date: August 26, 2020 Supervising Physician Co-Signing Physician Notes Clinical update 1700 patient had a symptomatic episode of a greater than 6- second pause, he spontaneously had return of circulation, since then he is gone bradycardic several times and we are now supplementing him with 2.5 mg of dopamine. 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 I have personally spent 45 minutes of critical care time in the direct management of this patient. This is a life/limb threatening event. This includes time spent evaluating patient, direct bedside care, chart review, placing orders, interpretation of diagnostic studies, discussion with consultants, patient, and/or family members regarding treatment decisions, as well as other required patient management activities. This time is exclusive of all separately billable procedures, and teaching time and separate from and in addition to any other critical care service time. Subjective Significantly improved mental status, garbled speech but that sounds like his baseline when compared to prior records. Following complex commands Review of Systems Review of Systems: Other Unable to obtain at baseline Physical Exam Physical Exam: General: Somnolent. nontoxic. Glascow Coma Scale: Eyes: 4, Verbal 4, Motor 6, Total 14 Skin: Warm, dry, Head: Atraumatic Ears, nose, mouth and throat: airway patent Cardiovascular: Normal peripheral perfusion Respiratory: no respiratory distress Gastrointestinal: Rotund, umbilical hernia that is freely reducible Musculoskeletal: No deformity Results & Data Results & Data ([facility]) Vital Signs (Past 12 Hours) Vital Signs Temp Pulse Resp BP Pulse Ox 08/27/20 07:20 34.5 C L 58 L 98 08/27/20 07:13 34.5 C L 60 20 128/77 99 08/27/20 07:10 34.5 C L 57 L 98 08/27/20 07:01 34.5 C L 58 L 99 08/27/20 07:00 34.5 C L 58 L 128/77 99 08/27/20 06:50 34.5 C L 57 L 97 08/27/20 06:40 34.5 C L 59 L 98 08/27/20 06:30 34.5 C L 58 L 96 08/27/20 06:26 34.5 C L 56 L 20 124/69 97 08/27/20 06:20 34.5 C L 57 L 96 08/27/20 06:10 34.5 C L 57 L 95 08/27/20 06:01 34.5 C L 57 L 95 08/27/20 06:00 34.5 C L 58 L 124/69 97 08/27/20 05:50 34.5 C L 58 L 96 08/27/20 05:40 59 L 96 08/27/20 05:35 65 08/27/20 05:10 34.9 C L 58 L 96 08/27/20 05:00 34.9 C L 58 L 96 08/27/20 04:50 34.9 C L 57 L 97 08/27/20 04:40 34.9 C L 56 L 96 08/27/20 04:30 34.9 C L 56 L 96 08/27/20 04:20 34.9 C L 56 L 97 08/27/20 04:10 34.9 C L 57 L 96 08/27/20 04:00 34.9 C L 57 L 95 08/27/20 03:50 34.9 C L 59 L 97 08/27/20 03:40 34.9 C L 59 L 96 08/27/20 03:30 34.9 C L 60 96 08/27/20 03:20 34.9 C L 58 L 98 08/27/20 03:10 34.9 C L 56 L 97 08/27/20 03:00 34.9 C L 56 L 97 08/27/20 02:50 34.9 C L 58 L 97 08/27/20 02:40 34.9 C L 59 L 95 08/27/20 02:30 34.8 C L 58 L 97 08/27/20 02:20 34.8 C L 57 L 96 08/27/20 02:10 34.8 C L 56 L 95 08/27/20 02:01 34.8 C L 57 L 96 08/27/20 02:00 34.8 C L 56 L 105/62 96 08/27/20 01:50 34.8 C L 58 L 97 08/27/20 01:40 34.8 C L 58 L 98 08/27/20 01:30 34.8 C L 57 L 98 08/27/20 01:20 34.8 C L 56 L 96 08/27/20 01:10 34.8 C L 57 L 97 08/27/20 01:01 34.8 C L 57 L 96 08/27/20 01:00 34.8 C L 57 L 115/60 96 08/27/20 00:50 34.8 C L 57 L 97 08/27/20 00:40 34.8 C L 58 L 96 08/27/20 00:30 34.8 C L 55 L 96 08/27/20 00:20 34.8 C L 59 L 95 08/27/20 00:10 34.8 C L 57 L 96 08/27/20 00:01 34.8 C L 57 L 97 08/27/20 00:00 34.8 C L 58 L 113/49 L 97 08/26/20 23:50 34.8 C L 59 L 97 08/26/20 23:41 34.9 C L 59 L 101/69 08/26/20 23:40 34.9 C L 57 L 08/26/20 23:10 56 L 96 08/26/20 23:00 57 L 98 08/26/20 22:50 61 97 08/26/20 22:40 62 96 08/26/20 22:30 61 97 08/26/20 22:20 61 96 08/26/20 22:10 61 96 08/26/20 22:00 34.8 C L 62 97 08/26/20 21:00 34.7 C L 62 99 08/26/20 20:00 34.6 C L 64 Laboratory Results 08/27/20 08/27/20 08/27/20 Range/Units 07:33 06:13 06:13 WBC (4.8-10.8) K/uL RBC (4.7-6.1) M/uL Hgb (14.0-18.0) g/dL Hct (42-52) % MCV (80-100) fL MCH (25-34) pg MCHC (32-36) g/dL RDW Std Deviation (36.4-46.3) fL RDW Coeff of Kianna (11.5-14.5) % Plt Count (130-400) K/uL MPV (7.4-10.4) fL Immature Gran % (Auto) % Neut % (Auto) % Lymph % (Auto) % [place] % (Auto) % Eos % (Auto) % Baso % (Auto) % Neut # (Auto) (1.4-6.5) K/uL Lymph # (Auto) (1.2-3.4) K/uL [place] # (Auto) (0.11-0.59) K/uL Eos # (Auto) (0-0.5) K/uL Baso # (Auto) (0-0.2) K/uL Immature Gran # (Auto) (0.00-0.02) K/uL Absolute Nucleated RBC (0-0) K/uL Nucleated RBC % (auto) % Giant Platelets ESR (0-14) mm/hr Haptoglobin Pending PT (9.0-12.0) Seconds INR (0.9-1.1) APTT (21.0-31.0) Seconds PTT Ratio Fibrinogen (184-400) mg/dl Fibrin Degrad Products (<10) mcg/ml D-Dimer (0-500) ug/L FEU Factor VIII Activity Pending Sample Site POC pH (7.35-7.45) POC pCO2 (35-46) mmHg POC pO2 (80-95) mmHg POC HCO3 (19-24) waldemar/L POC Total CO2 (24-31) mmol/L POC Base Excess (-9-1.8) waldemar/L POC ABG O2 Sat (90-95) % Ba Test O2 Delivery Device Sodium (136-145) mmol/L Potassium (3.5-5.1) mmol/L Chloride (98-107) mmol/L Carbon Dioxide (21-32) mmol/L Anion Gap (3-11) BUN (7-18) mg/dl Creatinine (0.6-1.4) mg/dl Est Cr Clr Drug Dosing ml/min Est GFR ( Amer) Est GFR (Non-Af Amer) BUN/Creatinine Ratio (10-20) Glucose (70-99) mg/dl POC Glucose 126 H (70-99) mg/dl POC Glucose (other) (70-99) mg/dl Calcium (8.5-10.1) mg/dl Phosphorus (2.5-4.9) mg/dl Magnesium (1.8-2.4) mg/dl Total Bilirubin (0.2-1) mg/dl AST (15-37) U/L ALT (12-78) U/L Alkaline Phosphatase (45-117) U/L Lactate Dehydrogenase (87-241) U/L Total Protein (6.4-8.2) gm/dl Albumin (3.4-5.0) gm/dl Globulin (2.5-4.0) gm/dl Albumin/Globulin Ratio (0.9-2) Procalcitonin (0-0.5) ng/ml Urine Color Urine Appearance (Clear) Urine pH (4.5-7.5) Ur Specific Purdy (1.000-1.030) Urine Protein (Negative) Urine Glucose (UA) (Negative) Urine Ketones (Negative) Urine Blood (Negative) Urine Nitrite (Negative) Urine Bilirubin (Negative) Urine Urobilinogen (Negative) Ur Leukocyte Esterase (Negative) Urine WBC (Auto) (0-5) /hpf Urine RBC (Auto) (0-4) /hpf U Hyaline Cast (Auto) (0-5) /lpf U Epithel Cells (Auto) (0-5) /lpf Urine Bacteria (Auto) (Negative) Granular Casts (0) /lpf Urine Yeast Nasal Screen MRSA (PCR) (Negative) Random Vancomycin mcg/ml Urine Opiates Screen (Neg) Ur Methadone, Qual (Neg) Urine Barbiturates (Neg) Ur Phencyclidine (PCP) (Neg) U Amphetamin/Meth Scrn (Neg) MDMA (Ecstasy) Screen (Neg) U Benzodiazepines Scrn (Neg) Ur Cocaine Metabolite (Neg) U Marijuana (THC) Screen (Neg) Blood Type Antibody Screen Crossmatch 08/27/20 08/27/20 08/27/20 Range/Units 06:13 06:13 04:48 WBC (4.8-10.8) K/uL RBC (4.7-6.1) M/uL Hgb (14.0-18.0) g/dL Hct (42-52) % MCV (80-100) fL MCH (25-34) pg MCHC (32-36) g/dL RDW Std Deviation (36.4-46.3) fL RDW Coeff of Kianna (11.5-14.5) % Plt Count (130-400) K/uL MPV (7.4-10.4) fL Immature Gran % (Auto) % Neut % (Auto) % Lymph % (Auto) % [place] % (Auto) % Eos % (Auto) % Baso % (Auto) % Neut # (Auto) (1.4-6.5) K/uL Lymph # (Auto) (1.2-3.4) K/uL [place] # (Auto) (0.11-0.59) K/uL Eos # (Auto) (0-0.5) K/uL Baso # (Auto) (0-0.2) K/uL Immature Gran # (Auto) (0.00-0.02) K/uL Absolute Nucleated RBC (0-0) K/uL Nucleated RBC % (auto) % Giant Platelets ESR (0-14) mm/hr Haptoglobin PT (9.0-12.0) Seconds INR (0.9-1.1) APTT (21.0-31.0) Seconds PTT Ratio Fibrinogen (184-400) mg/dl Fibrin Degrad Products >40 H (<10) mcg/ml D-Dimer 6360 H* (0-500) ug/L FEU Factor VIII Activity Sample Site POC pH (7.35-7.45) POC pCO2 (35-46) mmHg POC pO2 (80-95) mmHg POC HCO3 (19-24) waldemar/L POC Total CO2 (24-31) mmol/L POC Base Excess (-9-1.8) waldemar/L POC ABG O2 Sat (90-95) % Ba Test O2 Delivery Device Sodium (136-145) mmol/L Potassium (3.5-5.1) mmol/L Chloride (98-107) mmol/L Carbon Dioxide (21-32) mmol/L Anion Gap (3-11) BUN (7-18) mg/dl Creatinine (0.6-1.4) mg/dl Est Cr Clr Drug Dosing ml/min Est GFR ( Amer) Est GFR (Non-Af Amer) BUN/Creatinine Ratio (10-20) Glucose (70-99) mg/dl POC Glucose (70-99) mg/dl POC Glucose (other) (70-99) mg/dl Calcium (8.5-10.1) mg/dl Phosphorus (2.5-4.9) mg/dl Magnesium (1.8-2.4) mg/dl Total Bilirubin (0.2-1) mg/dl AST (15-37) U/L ALT (12-78) U/L Alkaline Phosphatase (45-117) U/L Lactate Dehydrogenase 262 H (87-241) U/L Total Protein (6.4-8.2) gm/dl Albumin (3.4-5.0) gm/dl Globulin (2.5-4.0) gm/dl Albumin/Globulin Ratio (0.9-2) Procalcitonin (0-0.5) ng/ml Urine Color Urine Appearance (Clear) Urine pH (4.5-7.5) Ur Specific Purdy (1.000-1.030) Urine Protein (Negative) Urine Glucose (UA) (Negative) Urine Ketones (Negative) Urine Blood (Negative) Urine Nitrite (Negative) Urine Bilirubin (Negative) Urine Urobilinogen (Negative) Ur Leukocyte Esterase (Negative) Urine WBC (Auto) (0-5) /hpf Urine RBC (Auto) (0-4) /hpf U Hyaline Cast (Auto) (0-5) /lpf U Epithel Cells (Auto) (0-5) /lpf Urine Bacteria (Auto) (Negative) Granular Casts (0) /lpf Urine Yeast Nasal Screen MRSA (PCR) (Negative) Random Vancomycin mcg/ml Urine Opiates Screen (Neg) Ur Methadone, Qual (Neg) Urine Barbiturates (Neg) Ur Phencyclidine (PCP) (Neg) U Amphetamin/Meth Scrn (Neg) MDMA (Ecstasy) Screen (Neg) U Benzodiazepines Scrn (Neg) Ur Cocaine Metabolite (Neg) U Marijuana (THC) Screen (Neg) Blood Type Antibody Screen Crossmatch 08/27/20 08/27/20 08/27/20 Range/Units 04:48 04:48 04:48 WBC (4.8-10.8) K/uL RBC (4.7-6.1) M/uL Hgb (14.0-18.0) g/dL Hct (42-52) % MCV (80-100) fL MCH (25-34) pg MCHC (32-36) g/dL RDW Std Deviation (36.4-46.3) fL RDW Coeff of Kianna (11.5-14.5) % Plt Count (130-400) K/uL MPV (7.4-10.4) fL Immature Gran % (Auto) % Neut % (Auto) % Lymph % (Auto) % [place] % (Auto) % Eos % (Auto) % Baso % (Auto) % Neut # (Auto) (1.4-6.5) K/uL Lymph # (Auto) (1.2-3.4) K/uL [place] # (Auto) (0.11-0.59) K/uL Eos # (Auto) (0-0.5) K/uL Baso # (Auto) (0-0.2) K/uL Immature Gran # (Auto) (0.00-0.02) K/uL Absolute Nucleated RBC (0-0) K/uL Nucleated RBC % (auto) % Giant Platelets ESR 9 (0-14) mm/hr Haptoglobin PT 15.1 H (9.0-12.0) Seconds INR 1.5 H (0.9-1.1) APTT 38.2 H (21.0-31.0) Seconds PTT Ratio 1.4 Fibrinogen 188 (184-400) mg/dl Fibrin Degrad Products (<10) mcg/ml D-Dimer (0-500) ug/L FEU Factor VIII Activity Sample Site POC pH (7.35-7.45) POC pCO2 (35-46) mmHg POC pO2 (80-95) mmHg POC HCO3 (19-24) waldemar/L POC Total CO2 (24-31) mmol/L POC Base Excess (-9-1.8) waldemar/L POC ABG O2 Sat (90-95) % Ba Test O2 Delivery Device Sodium (136-145) mmol/L Potassium (3.5-5.1) mmol/L Chloride (98-107) mmol/L Carbon Dioxide (21-32) mmol/L Anion Gap (3-11) BUN (7-18) mg/dl Creatinine (0.6-1.4) mg/dl Est Cr Clr Drug Dosing ml/min Est GFR ( Amer) Est GFR (Non-Af Amer) BUN/Creatinine Ratio (10-20) Glucose (70-99) mg/dl POC Glucose (70-99) mg/dl POC Glucose (other) (70-99) mg/dl Calcium (8.5-10.1) mg/dl Phosphorus (2.5-4.9) mg/dl Magnesium (1.8-2.4) mg/dl Total Bilirubin (0.2-1) mg/dl AST (15-37) U/L ALT (12-78) U/L Alkaline Phosphatase (45-117) U/L Lactate Dehydrogenase (87-241) U/L Total Protein (6.4-8.2) gm/dl Albumin (3.4-5.0) gm/dl Globulin (2.5-4.0) gm/dl Albumin/Globulin Ratio (0.9-2) Procalcitonin (0-0.5) ng/ml Urine Color Urine Appearance (Clear) Urine pH (4.5-7.5) Ur Specific Purdy (1.000-1.030) Urine Protein (Negative) Urine Glucose (UA) (Negative) Urine Ketones (Negative) Urine Blood (Negative) Urine Nitrite (Negative) Urine Bilirubin (Negative) Urine Urobilinogen (Negative) Ur Leukocyte Esterase (Negative) Urine WBC (Auto) (0-5) /hpf Urine RBC (Auto) (0-4) /hpf U Hyaline Cast (Auto) (0-5) /lpf U Epithel Cells (Auto) (0-5) /lpf Urine Bacteria (Auto) (Negative) Granular Casts (0) /lpf Urine Yeast Nasal Screen MRSA (PCR) (Negative) Random Vancomycin mcg/ml Urine Opiates Screen (Neg) Ur Methadone, Qual (Neg) Urine Barbiturates (Neg) Ur Phencyclidine (PCP) (Neg) U Amphetamin/Meth Scrn (Neg) MDMA (Ecstasy) Screen (Neg) U Benzodiazepines Scrn (Neg) Ur Cocaine Metabolite (Neg) U Marijuana (THC) Screen (Neg) Blood Type O Positive Antibody Screen NEGATIVE Crossmatch See Detail 08/27/20 08/27/20 08/27/20 Range/Units 04:00 03:54 03:54 WBC (4.8-10.8) K/uL RBC (4.7-6.1) M/uL Hgb (14.0-18.0) g/dL Hct (42-52) % MCV (80-100) fL MCH (25-34) pg MCHC (32-36) g/dL RDW Std Deviation (36.4-46.3) fL RDW Coeff of Kianna (11.5-14.5) % Plt Count (130-400) K/uL MPV (7.4-10.4) fL Immature Gran % (Auto) % Neut % (Auto) % Lymph % (Auto) % [place] % (Auto) % Eos % (Auto) % Baso % (Auto) % Neut # (Auto) (1.4-6.5) K/uL Lymph # (Auto) (1.2-3.4) K/uL [place] # (Auto) (0.11-0.59) K/uL Eos # (Auto) (0-0.5) K/uL Baso # (Auto) (0-0.2) K/uL Immature Gran # (Auto) (0.00-0.02) K/uL Absolute Nucleated RBC (0-0) K/uL Nucleated RBC % (auto) % Giant Platelets ESR (0-14) mm/hr Haptoglobin PT (9.0-12.0) Seconds INR (0.9-1.1) APTT (21.0-31.0) Seconds PTT Ratio Fibrinogen (184-400) mg/dl Fibrin Degrad Products (<10) mcg/ml D-Dimer (0-500) ug/L FEU Factor VIII Activity Sample Site POC pH (7.35-7.45) POC pCO2 (35-46) mmHg POC pO2 (80-95) mmHg POC HCO3 (19-24) waldemar/L POC Total CO2 (24-31) mmol/L POC Base Excess (-9-1.8) waldemar/L POC ABG O2 Sat (90-95) % Ba Test O2 Delivery Device Sodium 149 H (136-145) mmol/L Potassium 3.8 D (3.5-5.1) mmol/L Chloride 122 H (98-107) mmol/L Carbon Dioxide 20 L (21-32) mmol/L Anion Gap 7.0 (3-11) BUN 93 H (7-18) mg/dl Creatinine 3.53 H D (0.6-1.4) mg/dl Est Cr Clr Drug Dosing 23.7 ml/min Est GFR ( Amer) 19.7 Est GFR (Non-Af Amer) 17.0 BUN/Creatinine Ratio 26.4 H (10-20) Glucose 144 H (70-99) mg/dl POC Glucose 154 H (70-99) mg/dl POC Glucose (other) (70-99) mg/dl Calcium 8.1 L (8.5-10.1) mg/dl Phosphorus 6.0 H (2.5-4.9) mg/dl Magnesium 2.3 (1.8-2.4) mg/dl Total Bilirubin 0.5 (0.2-1) mg/dl AST 26 (15-37) U/L ALT 26 (12-78) U/L Alkaline Phosphatase 100 (45-117) U/L Lactate Dehydrogenase (87-241) U/L Total Protein 6.5 (6.4-8.2) gm/dl Albumin 2.5 L (3.4-5.0) gm/dl Globulin 4.0 (2.5-4.0) gm/dl Albumin/Globulin Ratio 0.6 L (0.9-2) Procalcitonin (0-0.5) ng/ml Urine Color Urine Appearance (Clear) Urine pH (4.5-7.5) Ur Specific Purdy (1.000-1.030) Urine Protein (Negative) Urine Glucose (UA) (Negative) Urine Ketones (Negative) Urine Blood (Negative) Urine Nitrite (Negative) Urine Bilirubin (Negative) Urine Urobilinogen (Negative) Ur Leukocyte Esterase (Negative) Urine WBC (Auto) (0-5) /hpf Urine RBC (Auto) (0-4) /hpf U Hyaline Cast (Auto) (0-5) /lpf U Epithel Cells (Auto) (0-5) /lpf Urine Bacteria (Auto) (Negative) Granular Casts (0) /lpf Urine Yeast Nasal Screen MRSA (PCR) (Negative) Random Vancomycin 18.6 mcg/ml Urine Opiates Screen (Neg) Ur Methadone, Qual (Neg) Urine Barbiturates (Neg) Ur Phencyclidine (PCP) (Neg) U Amphetamin/Meth Scrn (Neg) MDMA (Ecstasy) Screen (Neg) U Benzodiazepines Scrn (Neg) Ur Cocaine Metabolite (Neg) U Marijuana (THC) Screen (Neg) Blood Type Antibody Screen Crossmatch 08/27/20 08/27/20 08/27/20 Range/Units 03:54 01:23 00:08 WBC 4.98 (4.8-10.8) K/uL RBC 2.01 L (4.7-6.1) M/uL Hgb 6.7 L* (14.0-18.0) g/dL Hct 20.7 L* (42-52) % MCV 103.0 H (80-100) fL MCH 33.3 (25-34) pg MCHC 32.4 (32-36) g/dL RDW Std Deviation 65.9 H (36.4-46.3) fL RDW Coeff of Kianna 17.6 H (11.5-14.5) % Plt Count 58 L (130-400) K/uL MPV 11.1 H (7.4-10.4) fL Immature Gran % (Auto) 0.0 % Neut % (Auto) 77.3 % Lymph % (Auto) 7.8 % [place] % (Auto) 14.1 % Eos % (Auto) 0.8 % Baso % (Auto) 0.0 % Neut # (Auto) 3.85 (1.4-6.5) K/uL Lymph # (Auto) 0.39 L (1.2-3.4) K/uL [place] # (Auto) 0.70 H (0.11-0.59) K/uL Eos # (Auto) 0.04 (0-0.5) K/uL Baso # (Auto) 0.00 (0-0.2) K/uL Immature Gran # (Auto) 0.00 (0.00-0.02) K/uL Absolute Nucleated RBC 0.03 H (0-0) K/uL Nucleated RBC % (auto) 0.7 % Giant Platelets 2+ ESR (0-14) mm/hr Haptoglobin PT (9.0-12.0) Seconds INR (0.9-1.1) APTT (21.0-31.0) Seconds PTT Ratio Fibrinogen (184-400) mg/dl Fibrin Degrad Products (<10) mcg/ml D-Dimer (0-500) ug/L FEU Factor VIII Activity Sample Site Art Line POC pH 7.30 L (7.35-7.45) POC pCO2 34 L (35-46) mmHg POC pO2 70 L (80-95) mmHg POC HCO3 17 L (19-24) waldemar/L POC Total CO2 18 L (24-31) mmol/L POC Base Excess -9.0 (-9-1.8) waldemar/L POC ABG O2 Sat 92.0 (90-95) % Ba Test NA O2 Delivery Device Room Air Sodium (136-145) mmol/L Potassium (3.5-5.1) mmol/L Chloride (98-107) mmol/L Carbon Dioxide (21-32) mmol/L Anion Gap (3-11) BUN (7-18) mg/dl Creatinine (0.6-1.4) mg/dl Est Cr Clr Drug Dosing ml/min Est GFR ( Amer) Est GFR (Non-Af Amer) BUN/Creatinine Ratio (10-20) Glucose (70-99) mg/dl POC Glucose (70-99) mg/dl POC Glucose (other) 176 H (70-99) mg/dl Calcium (8.5-10.1) mg/dl Phosphorus (2.5-4.9) mg/dl Magnesium (1.8-2.4) mg/dl Total Bilirubin (0.2-1) mg/dl AST (15-37) U/L ALT (12-78) U/L Alkaline Phosphatase (45-117) U/L Lactate Dehydrogenase (87-241) U/L Total Protein (6.4-8.2) gm/dl Albumin (3.4-5.0) gm/dl Globulin (2.5-4.0) gm/dl Albumin/Globulin Ratio (0.9-2) Procalcitonin (0-0.5) ng/ml Urine Color Urine Appearance (Clear) Urine pH (4.5-7.5) Ur Specific Purdy (1.000-1.030) Urine Protein (Negative) Urine Glucose (UA) (Negative) Urine Ketones (Negative) Urine Blood (Negative) Urine Nitrite (Negative) Urine Bilirubin (Negative) Urine Urobilinogen (Negative) Ur Leukocyte Esterase (Negative) Urine WBC (Auto) (0-5) /hpf Urine RBC (Auto) (0-4) /hpf U Hyaline Cast (Auto) (0-5) /lpf U Epithel Cells (Auto) (0-5) /lpf Urine Bacteria (Auto) (Negative) Granular Casts (0) /lpf Urine Yeast Nasal Screen MRSA (PCR) (Negative) Random Vancomycin mcg/ml Urine Opiates Screen (Neg) Ur Methadone, Qual (Neg) Urine Barbiturates (Neg) Ur Phencyclidine (PCP) (Neg) U Amphetamin/Meth Scrn (Neg) MDMA (Ecstasy) Screen (Neg) U Benzodiazepines Scrn (Neg) Ur Cocaine Metabolite (Neg) U Marijuana (THC) Screen (Neg) Blood Type Antibody Screen Crossmatch 08/26/20 08/26/20 08/26/20 Range/Units 20:28 16:20 16:20 WBC (4.8-10.8) K/uL RBC (4.7-6.1) M/uL Hgb (14.0-18.0) g/dL Hct (42-52) % MCV (80-100) fL MCH (25-34) pg MCHC (32-36) g/dL RDW Std Deviation (36.4-46.3) fL RDW Coeff of Kianna (11.5-14.5) % Plt Count (130-400) K/uL MPV (7.4-10.4) fL Immature Gran % (Auto) % Neut % (Auto) % Lymph % (Auto) % [place] % (Auto) % Eos % (Auto) % Baso % (Auto) % Neut # (Auto) (1.4-6.5) K/uL Lymph # (Auto) (1.2-3.4) K/uL [place] # (Auto) (0.11-0.59) K/uL Eos # (Auto) (0-0.5) K/uL Baso # (Auto) (0-0.2) K/uL Immature Gran # (Auto) (0.00-0.02) K/uL Absolute Nucleated RBC (0-0) K/uL Nucleated RBC % (auto) % Giant Platelets ESR (0-14) mm/hr Haptoglobin PT (9.0-12.0) Seconds INR (0.9-1.1) APTT (21.0-31.0) Seconds PTT Ratio Fibrinogen (184-400) mg/dl Fibrin Degrad Products (<10) mcg/ml D-Dimer (0-500) ug/L FEU Factor VIII Activity Sample Site POC pH (7.35-7.45) POC pCO2 (35-46) mmHg POC pO2 (80-95) mmHg POC HCO3 (19-24) waldemar/L POC Total CO2 (24-31) mmol/L POC Base Excess (-9-1.8) waldemar/L POC ABG O2 Sat (90-95) % Ba Test O2 Delivery Device Sodium (136-145) mmol/L Potassium (3.5-5.1) mmol/L Chloride (98-107) mmol/L Carbon Dioxide (21-32) mmol/L Anion Gap (3-11) BUN (7-18) mg/dl Creatinine (0.6-1.4) mg/dl Est Cr Clr Drug Dosing ml/min Est GFR ( Amer) Est GFR (Non-Af Amer) BUN/Creatinine Ratio (10-20) Glucose (70-99) mg/dl POC Glucose (70-99) mg/dl POC Glucose (other) 192 H (70-99) mg/dl Calcium (8.5-10.1) mg/dl Phosphorus (2.5-4.9) mg/dl Magnesium (1.8-2.4) mg/dl Total Bilirubin (0.2-1) mg/dl AST (15-37) U/L ALT (12-78) U/L Alkaline Phosphatase (45-117) U/L Lactate Dehydrogenase (87-241) U/L Total Protein (6.4-8.2) gm/dl Albumin (3.4-5.0) gm/dl Globulin (2.5-4.0) gm/dl Albumin/Globulin Ratio (0.9-2) Procalcitonin (0-0.5) ng/ml Urine Color Dark Yellow Urine Appearance Turbid A (Clear) Urine pH 5.0 (4.5-7.5) Ur Specific Purdy 1.024 (1.000-1.030) Urine Protein 3+ H (Negative) Urine Glucose (UA) Trace H (Negative) Urine Ketones Negative (Negative) Urine Blood 2+ H (Negative) Urine Nitrite Negative (Negative) Urine Bilirubin Negative (Negative) Urine Urobilinogen Negative (Negative) Ur Leukocyte Esterase Trace H (Negative) Urine WBC (Auto) >30 H (0-5) /hpf Urine RBC (Auto) 5-10 H (0-4) /hpf U Hyaline Cast (Auto) 10-30 H (0-5) /lpf U Epithel Cells (Auto) >30 H (0-5) /lpf Urine Bacteria (Auto) Negative (Negative) Granular Casts 1-5 H (0) /lpf Urine Yeast Not Reportable Nasal Screen MRSA (PCR) (Negative) Random Vancomycin mcg/ml Urine Opiates Screen Neg (Neg) Ur Methadone, Qual Neg (Neg) Urine Barbiturates Neg (Neg) Ur Phencyclidine (PCP) Neg (Neg) U Amphetamin/Meth Scrn Neg (Neg) MDMA (Ecstasy) Screen Neg (Neg) U Benzodiazepines Scrn Neg (Neg) Ur Cocaine Metabolite Neg (Neg) U Marijuana (THC) Screen Neg (Neg) Blood Type Antibody Screen Crossmatch 08/26/20 08/26/20 08/26/20 Range/Units 16:20 16:08 11:47 WBC (4.8-10.8) K/uL RBC (4.7-6.1) M/uL Hgb (14.0-18.0) g/dL Hct (42-52) % MCV (80-100) fL MCH (25-34) pg MCHC (32-36) g/dL RDW Std Deviation (36.4-46.3) fL RDW Coeff of Kianna (11.5-14.5) % Plt Count (130-400) K/uL MPV (7.4-10.4) fL Immature Gran % (Auto) % Neut % (Auto) % Lymph % (Auto) % [place] % (Auto) % Eos % (Auto) % Baso % (Auto) % Neut # (Auto) (1.4-6.5) K/uL Lymph # (Auto) (1.2-3.4) K/uL [place] # (Auto) (0.11-0.59) K/uL Eos # (Auto) (0-0.5) K/uL Baso # (Auto) (0-0.2) K/uL Immature Gran # (Auto) (0.00-0.02) K/uL Absolute Nucleated RBC (0-0) K/uL Nucleated RBC % (auto) % Giant Platelets ESR (0-14) mm/hr Haptoglobin PT (9.0-12.0) Seconds INR (0.9-1.1) APTT (21.0-31.0) Seconds PTT Ratio Fibrinogen (184-400) mg/dl Fibrin Degrad Products (<10) mcg/ml D-Dimer (0-500) ug/L FEU Factor VIII Activity Sample Site POC pH (7.35-7.45) POC pCO2 (35-46) mmHg POC pO2 (80-95) mmHg POC HCO3 (19-24) waldemar/L POC Total CO2 (24-31) mmol/L POC Base Excess (-9-1.8) waldemar/L POC ABG O2 Sat (90-95) % Ba Test O2 Delivery Device Sodium (136-145) mmol/L Potassium (3.5-5.1) mmol/L Chloride (98-107) mmol/L Carbon Dioxide (21-32) mmol/L Anion Gap (3-11) BUN (7-18) mg/dl Creatinine (0.6-1.4) mg/dl Est Cr Clr Drug Dosing ml/min Est GFR ( Amer) Est GFR (Non-Af Amer) BUN/Creatinine Ratio (10-20) Glucose (70-99) mg/dl POC Glucose 233 H 235 H (70-99) mg/dl POC Glucose (other) (70-99) mg/dl Calcium (8.5-10.1) mg/dl Phosphorus (2.5-4.9) mg/dl Magnesium (1.8-2.4) mg/dl Total Bilirubin (0.2-1) mg/dl AST (15-37) U/L ALT (12-78) U/L Alkaline Phosphatase (45-117) U/L Lactate Dehydrogenase (87-241) U/L Total Protein (6.4-8.2) gm/dl Albumin (3.4-5.0) gm/dl Globulin (2.5-4.0) gm/dl Albumin/Globulin Ratio (0.9-2) Procalcitonin (0-0.5) ng/ml Urine Color Urine Appearance (Clear) Urine pH (4.5-7.5) Ur Specific Purdy (1.000-1.030) Urine Protein (Negative) Urine Glucose (UA) (Negative) Urine Ketones (Negative) Urine Blood (Negative) Urine Nitrite (Negative) Urine Bilirubin (Negative) Urine Urobilinogen (Negative) Ur Leukocyte Esterase (Negative) Urine WBC (Auto) (0-5) /hpf Urine RBC (Auto) (0-4) /hpf U Hyaline Cast (Auto) (0-5) /lpf U Epithel Cells (Auto) (0-5) /lpf Urine Bacteria (Auto) (Negative) Granular Casts (0) /lpf Urine Yeast Nasal Screen MRSA (PCR) Negative (Negative) Random Vancomycin mcg/ml Urine Opiates Screen (Neg) Ur Methadone, Qual (Neg) Urine Barbiturates (Neg) Ur Phencyclidine (PCP) (Neg) U Amphetamin/Meth Scrn (Neg) MDMA (Ecstasy) Screen (Neg) U Benzodiazepines Scrn (Neg) Ur Cocaine Metabolite (Neg) U Marijuana (THC) Screen (Neg) Blood Type Antibody Screen Crossmatch 08/26/20 08/26/20 Range/Units 08:50 06:57 WBC (4.8-10.8) K/uL RBC (4.7-6.1) M/uL Hgb (14.0-18.0) g/dL Hct (42-52) % MCV (80-100) fL MCH (25-34) pg MCHC (32-36) g/dL RDW Std Deviation (36.4-46.3) fL RDW Coeff of Kianna (11.5-14.5) % Plt Count (130-400) K/uL MPV (7.4-10.4) fL Immature Gran % (Auto) % Neut % (Auto) % Lymph % (Auto) % [place] % (Auto) % Eos % (Auto) % Baso % (Auto) % Neut # (Auto) (1.4-6.5) K/uL Lymph # (Auto) (1.2-3.4) K/uL [place] # (Auto) (0.11-0.59) K/uL Eos # (Auto) (0-0.5) K/uL Baso # (Auto) (0-0.2) K/uL Immature Gran # (Auto) (0.00-0.02) K/uL Absolute Nucleated RBC (0-0) K/uL Nucleated RBC % (auto) % Giant Platelets ESR (0-14) mm/hr Haptoglobin PT (9.0-12.0) Seconds INR (0.9-1.1) APTT (21.0-31.0) Seconds PTT Ratio Fibrinogen (184-400) mg/dl Fibrin Degrad Products (<10) mcg/ml D-Dimer (0-500) ug/L FEU Factor VIII Activity Sample Site POC pH (7.35-7.45) POC pCO2 (35-46) mmHg POC pO2 (80-95) mmHg POC HCO3 (19-24) waldemar/L POC Total CO2 (24-31) mmol/L POC Base Excess (-9-1.8) waldemar/L POC ABG O2 Sat (90-95) % Ba Test O2 Delivery Device Sodium (136-145) mmol/L Potassium (3.5-5.1) mmol/L Chloride (98-107) mmol/L Carbon Dioxide (21-32) mmol/L Anion Gap (3-11) BUN (7-18) mg/dl Creatinine (0.6-1.4) mg/dl Est Cr Clr Drug Dosing ml/min Est GFR ( Amer) Est GFR (Non-Af Amer) BUN/Creatinine Ratio (10-20) Glucose (70-99) mg/dl POC Glucose 215 H (70-99) mg/dl POC Glucose (other) (70-99) mg/dl Calcium (8.5-10.1) mg/dl Phosphorus (2.5-4.9) mg/dl Magnesium (1.8-2.4) mg/dl Total Bilirubin (0.2-1) mg/dl AST (15-37) U/L ALT (12-78) U/L Alkaline Phosphatase (45-117) U/L Lactate Dehydrogenase (87-241) U/L Total Protein (6.4-8.2) gm/dl Albumin (3.4-5.0) gm/dl Globulin (2.5-4.0) gm/dl Albumin/Globulin Ratio (0.9-2) Procalcitonin 0.11 (0-0.5) ng/ml Urine Color Urine Appearance (Clear) Urine pH (4.5-7.5) Ur Specific Purdy (1.000-1.030) Urine Protein (Negative) Urine Glucose (UA) (Negative) Urine Ketones (Negative) Urine Blood (Negative) Urine Nitrite (Negative) Urine Bilirubin (Negative) Urine Urobilinogen (Negative) Ur Leukocyte Esterase (Negative) Urine WBC (Auto) (0-5) /hpf Urine RBC (Auto) (0-4) /hpf U Hyaline Cast (Auto) (0-5) /lpf U Epithel Cells (Auto) (0-5) /lpf Urine Bacteria (Auto) (Negative) Granular Casts (0) /lpf Urine Yeast Nasal Screen MRSA (PCR) (Negative) Random Vancomycin mcg/ml Urine Opiates Screen (Neg) Ur Methadone, Qual (Neg) Urine Barbiturates (Neg) Ur Phencyclidine (PCP) (Neg) U Amphetamin/Meth Scrn (Neg) MDMA (Ecstasy) Screen (Neg) U Benzodiazepines Scrn (Neg) Ur Cocaine Metabolite (Neg) U Marijuana (THC) Screen (Neg) Blood Type Antibody Screen Crossmatch Coding Level of Care Code Critical Care 1st 30-74 mins Diagnoses Cardiac arrest following intubation I97.89; I46.9 Hypothermia T68.XXXA Encounter type: initial encounter Bradycardia R00.1 Obtundation R40.1 Anasarca R60.1 Time Spent (min) 45 (1) Hypothermia Encounter type: initial encounter Qualified Code(s): T68.XXXA - Hypothermia, initial encounter
[2020-08-27] MEDS: INSULIN GLARGINE SOLOSTAR 100 UNITS/ML 3 ML PEN SC SCH ×2 (08:24→20:53)
[2020-08-27] MEDS: rifAXIMin 550 MG TABLET PO SCH ×2 (08:28→20:47)
[2020-08-27] MEDS: LACTULOSE SYRUP 30 GM/45 ML UDP PO SCH ×3 (08:28→20:47)
[2020-08-27] MEDS: Standard Conc 16mcg/mL; 8mg in 500mL IV SCH (08:43)
[2020-08-27] MEDS: HEPARIN SOD 5,000 UNIT/0.5 ML VIAL SQ SCH (08:43)
[2020-08-27] MEDS: FAMOTIDINE 20 MG in SYRINGE 3 ML IV SCH (08:51)
[2020-08-27] MEDS: cefTRIAXone SODIUM 2,000 MG in DEXTROSE 5% 50 ML IV SCH (09:02)
[2020-08-27 09:40] LABS: Reticulocyte % 3.2 % (0.5-2.0); Reticulocytes # 0.06 10^6/uL (0.02-0.10)
--- NOTE | 2020-08-27 09:47 | CT Scan Report ---
CT SCAN OF THE ABDOMEN AND PELVIS WITHOUT IV CONTRAST CLINICAL HISTORY: Generalized abdominal pain. Abdominal distention. COMPARISON STUDY: Abdominal CT dated 06/28/2020. TECHNIQUE: CT scan of the abdomen and pelvis is performed from the lung bases to the proximal femora. Images are reviewed in the axial, sagittal, and coronal planes. IV contrast was not administered for this examination. Note that the examination was performed in suboptimal fashion without oral and IV contrast. There is also motion artifact, as well as streak artifact from the arms which could not be elevated above the abdomen. A dose lowering technique was utilized adhering to the principles of EVIN Weathers. CT DOSE: 1773.62 mGy.cm FINDINGS: Lung bases: The heart is mildly enlarged and without pericardial effusion. There is diminished attenu ation of the cardiac blood pool as compared to the myocardium suggesting anemia. There are small to m oderate pleural effusions with dense bibasilar consolidation. Gynecomastia is noted. There is a small hiatal hernia. Esophageal varices are suspected. Liver: The unenhanced liver is cirrhotic in morphology and heterogeneous in attenuation. There is nod ularity of the hepatic surface contour. There is no intrahepatic biliary ductal dilatation. Gallbladder: There is a large calcified gallstone with no CT evidence of acute cholecystitis. Spleen: The spleen is mildly enlarged measuring 14.3 cm in length. Perisplenic varices are noted. Pancreas: The unenhanced pancreas is mildly atrophic and grossly unremarkable. Adrenal glands: Unremarkable. Kidneys: The unenhanced kidneys demonstrate mild cortical atrophy and are without hydronephrosis. The re are no renal calculi identified. There is no evidence of contour deforming renal mass lesion. Nons pecific bilateral perinephric stranding is similar to previous. Abdominal vasculature: The abdominal aorta is normal in course and caliber noting mild to moderate at herosclerotic calcification. Bowel: Moderate fecal retention is noted throughout the colon. There is no bowel obstruction. A bree ter is noted in the rectum. The appendix is not identified and reported surgically absent. Peritoneum: There is a small to moderate: The abdominal pelvic ascites. No intraperitoneal free air i s seen. There are fat and fluid containing umbilical and supraumbilical hernias. Lymphadenopathy: None. Pelvic viscera: The bladder is decompressed around a Finn catheter and not well evaluated. Foci of i ntraluminal gas are likely related to instrumentation. The prostate gland is diminutive. The seminal vesicles are normal as imaged. Skeletal structures: The skeletal structures are osteopenic. Mild lumbosacral spondylosis is observed . No lytic or blastic lesions are seen. Soft tissues: There is anasarca of the body wall. IMPRESSION: 1. Suboptimal examination without oral and IV contrast. There is also streak and motion artifact. 2. The liver is cirrhotic in morphology and heterogeneous in attenuation. 3. Mild splenomegaly and a small to moderate: Abdominopelvic ascites indicate portal hypertension. 4. There are small to moderate pleural effusions with dense bibasilar consolidation. This likely repr esents atelectasis. Clinical correlation will be required. 5. Mild cardiomegaly. 6. Cholelithiasis. 7. There is anasarca of the body wall. 8. Additional findings as above. ACT 112: Negative or not required by law. Electronically signed by: Juan Antonio Gibbs M.D. 08/27/2020 9:46 AM
[2020-08-27] MEDS ORDERED: VANCOMYCIN HCL 1,500 MG in SODIUM CHLORIDE 0.9% 500 ML IV ONE (10:00)
--- NOTE | 2020-08-27 10:28 | Pharmacy Report ---
Pharmacy Abx Dose Short Note - Date of Service August 27, 2020 - Assessment & Plan Assessment * 65 year old M receiving VANCOMYCIN + CEFTRIAXONE for empiric treatment of possible septic shock, uncertain source * Pharmacy has been consulted to dose VANCOMYCIN * Today is Day 2 of 2 (empiric 48 hr coverage) * [employer] wishes to continue ceftriaxone at non-meningitis dosing at this time, although combined advanced kidney disease + hepatic disease leads to reduced elimination and 2gm/day could be considered max dose in some * No growth in BLCXs or Urine cx to date, negative COVID ANTIGEN screening * Nasal MRSA swab is NEGATIVE - greatly lessening to likelihood of MRSA pneumonia. This does not R/O the possibility of MRSA infxn at other site. Patient is incarcerated and was hospitalized within the last 90 days - so does carry risk factors for resistant organism * Paracentesis may be considered by [employer] * UOP < 0.5mL/kg/hr per documentation. MAPs this AM > 65 Plan Vancomycin * Random level this AM = 18.6, this level is therapeutic. * Will give ~15mg/kg (1500mg) IV x 1 * Goal trough level for septic shock, uncertain source : 15 to 20 mcg/mL (not a candidate for AUC dosing) * A repeat random level will not be obtained as therapy will d/c in next 24 hrs and today's dose should provide ~ 24+ hrs therapeutic level Pharmacy will continue to follow and will adjust dose/frequency as necessary. Thank you.
[2020-08-27] MEDS: CHLOROTHIAZIDE SODIUM 500 MG in DEXTROSE 5% 50 ML IV SCH ×2 (10:53→20:48)
[2020-08-27] MEDS: THIAMINE HCL 100 MG in SYRINGE 9 ML IV SCH (12:04)
[2020-08-27 14:28] LABS: Hematocrit (blood only) 23.6 % (42-52); Hemoglobin 7.6 g/dL (14.0-18.0)
[2020-08-27] MEDS ORDERED: STAT IV Infusion **Titration per Protocol STA (15:08)
[2020-08-27] MEDS ORDERED: DOPamine / D5W 400 MG/250 ML BAG IV SCH (15:15)
--- NOTE | 2020-08-27 15:16 | Hospitalist Progress Note ---
Date of Service August 27, 2020 Assessment & Plan (1) Acute hepatic encephalopathy: Due to cirrhosis. - Continue lactulose & rifaximin - Monitor mental status (2) Esophageal varices without bleeding: Prior notes indicate a hx of esophageal varices, but without any EGD in our system. - Hemoglobin was at baseline (8.7 on admission), then dropped to 6.7 on 08/27. - Holding nadolol - Continue ceftriaxone - Will consult GI and order paracentesis (3) Hypothermia: Secondary to infection/sepsis/metabolic encephalopathy/adrenal insuff. - Warming blanket - Treatment of underlying medical conditions - AM cortisol tomorrow (4) CKD (chronic kidney disease), stage IV: Baseline Cr ~3.0 - 4.0. - Avoid nephrotoxins - Finn (5) Bradycardia: Sinus bradycardia. No EKG changes of ischemia. Troponin negative. - Hold nadolol (6) Liver cirrhosis: Due to HCV. - Restart Bumex and spironolactone (7) Hypertension: Blood pressure higher today. - Hold nadolol - Restarted diuretics as above - Monitor (8) Type 2 diabetes mellitus: A1c was 5.4% in 06/2020. - Continue basal/bolus - Blood sugars have been 125-150 in the last 24 hours. - Glycemic pharmacy following (9) GERD (gastroesophageal reflux disease): Chronic. - Pepcid IV daily (10) DVT prophylaxis: Heparin presently via ICU team. Admission and Anticipated Discharge Date Admission Date: August 26, 2020 Subjective Reports his feet hurt, but then dozes off after that. Review of Systems Review of Systems: Unobtainable due to cognitive status Physical Exam Constitutional: WD/WN, vitals as above + acute distress and + lethargic Eyes: EOM intact bilaterally; no conjunctival abnormality ENMT: external ear and nose normal, oropharynx normal Neck: trachea midline, no thyromegaly normal visual inspection Respiratory: normal respiratory effort, lungs clear to auscultation no respiratory distress Cardiovascular: RRR, no murmur, no edema Gastrointestinal (Abdomen): Inspection/Auscultation: abdomen normal to inspection, + abdomen distended and normal bowel sounds Percussion/Palpation: abdomen soft; abdomen nontender, no guarding and abdomen not rigid Musculoskeletal: no cyanosis or clubbing, extremities motor strength 5/5 Skin: no rashes, warm and dry Neurologic: moves all extremities and awake Psychiatric: Orientation: oriented to person and cooperative; + not alert Results & Data Results & Data ([facility]) Vital Signs (Past 12 Hours) Vital Signs Temp Pulse Resp BP Pulse Ox 08/27/20 13:01 56 L 96 08/27/20 13:00 53 L 144/76 H 95 08/27/20 12:00 34.0 C L 56 L 96 08/27/20 11:01 54 L 96 08/27/20 11:00 56 L 134/75 98 08/27/20 10:30 34.3 C L 57 L 98 08/27/20 10:00 34.3 C L 56 L 98 08/27/20 09:30 34.3 C L 56 L 95 08/27/20 09:01 34.5 C L 58 L 97 08/27/20 09:00 34.5 C L 57 L 116/64 97 08/27/20 08:30 34.6 C L 59 L 96 08/27/20 08:01 34.6 C L 58 L 97 08/27/20 08:00 34.6 C L 56 L 119/64 98 08/27/20 07:50 34.6 C L 58 L 97 08/27/20 07:40 34.6 C L 57 L 96 08/27/20 07:30 34.6 C L 51 L 95 08/27/20 07:20 34.5 C L 58 L 98 08/27/20 07:13 34.5 C L 60 20 128/77 99 08/27/20 07:10 34.5 C L 57 L 98 08/27/20 07:01 34.5 C L 58 L 99 08/27/20 07:00 34.5 C L 58 L 128/77 99 08/27/20 06:50 34.5 C L 57 L 97 08/27/20 06:40 34.5 C L 59 L 98 08/27/20 06:30 34.5 C L 58 L 96 08/27/20 06:26 34.5 C L 56 L 20 124/69 97 08/27/20 06:20 34.5 C L 57 L 96 08/27/20 06:10 34.5 C L 57 L 95 08/27/20 06:01 34.5 C L 57 L 95 08/27/20 06:00 34.5 C L 58 L 124/69 97 08/27/20 05:50 34.5 C L 58 L 96 08/27/20 05:40 59 L 96 08/27/20 05:35 65 08/27/20 05:10 34.9 C L 58 L 96 08/27/20 05:00 34.9 C L 58 L 96 08/27/20 04:50 34.9 C L 57 L 97 08/27/20 04:40 34.9 C L 56 L 96 08/27/20 04:30 34.9 C L 56 L 96 08/27/20 04:20 34.9 C L 56 L 97 08/27/20 04:10 34.9 C L 57 L 96 08/27/20 04:00 34.9 C L 57 L 95 08/27/20 03:50 34.9 C L 59 L 97 08/27/20 03:40 34.9 C L 59 L 96 08/27/20 03:30 34.9 C L 60 96 08/27/20 03:20 34.9 C L 58 L 98 08/27/20 03:10 34.9 C L 56 L 97 08/27/20 03:00 34.9 C L 56 L 97 PG Care Time/CCT Total # of Minutes Spent Total Time Spent with Patient: Total time spent is greater than 50% in coordination of care (as documented) at patient's floor/unit and/or counseling patient: Coding Level of Care Code 55245 Subseq Hosp Care Lvl 3 Diagnoses Acute hepatic encephalopathy K72.00 Esophageal varices without bleeding I85.00 Esophageal varices type: unspecified type Hypothermia T68.XXXA Encounter type: initial encounter CKD (chronic kidney disease), stage IV N18.4 Bradycardia R00.1 Liver cirrhosis K74.60 Hepatic cirrhosis type: unspecified hepatic cirrhosis Ascites presence: without ascites Hypertension I10 Hypertension type: essential hypertension Type 2 diabetes mellitus E11.9; Z79.4 Diabetes mellitus chcf insulin use: with chcf use Diabetes mellitus complication status: without complication GERD (gastroesophageal reflux disease) K21.9 Esophagitis presence: esophagitis presence not specified DVT prophylaxis Z29.9 (1) Hypothermia Encounter type: initial encounter Qualified Code(s): T68.XXXA - Hypothermia, initial encounter (2) Liver cirrhosis Hepatic cirrhosis type: unspecified hepatic cirrhosis Ascites presence: without ascites Qualified Code(s): K74.60 - Unspecified cirrhosis of liver (3) Hypertension Hypertension type: essential hypertension Qualified Code(s): I10 - Essential (primary) hypertension (4) Esophageal varices without bleeding Esophageal varices type: unspecified type Qualified Code(s): I85.00 - Esophageal varices without bleeding (5) Type 2 diabetes mellitus 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
[2020-08-27] MEDS ORDERED: ATROPINE SULFATE 0.1 MG/ML 10ML SYR IV ONE (20:32)
[2020-08-28] MEDS: INSULIN ASPART 100 UNITS/ML 3 ML PEN SC SCH ×4 (00:42→20:37)
[2020-08-28 05:39] LABS: INR 1.4 (0.9-1.1); Prothrombin Time 14.7 Seconds (9.0-12.0)
[2020-08-28 05:50] LABS: Anisocytosis Present; Eosinophils # (auto) 0.04 K/uL (0-0.5); Eosinophils % (auto) 0.7 %; Hematocrit (blood only) 22.9 % (42-52); Hemoglobin 7.4 g/dL (14.0-18.0); Immature Granulocytes # (auto) 0.01 K/uL (0.00-0.02); Immature Granulocytes % (auto) 0.2 %; Lymphocytes # (auto) 0.43 K/uL (1.2-3.4); Lymphocytes % (auto) 7.8 %; Mean Corpuscular Hemoglobin 32.5 pg (25-34); Mean Corpuscular Hgb Conc 32.3 g/dL (32-36); Mean Corpuscular Volume 100.4 fL (80-100); Monocytes # (auto) 0.69 K/uL (0.11-0.59); Monocytes % (auto) 12.5 %; Neutrophils # (auto) 4.34 K/uL (1.4-6.5); Neutrophils % (auto) 78.8 %; Nucleated RBC # (auto) 0.06 K/uL (0-0); Nucleated RBC % (auto) 1.1 %; Platelet Count 53 K/uL (130-400); RDW Coefficient of Variation 20.8 % (11.5-14.5); RDW Standard Deviation 75.4 fL (36.4-46.3); Red Blood Count 2.28 M/uL (4.7-6.1); White Blood Count 5.51 K/uL (4.8-10.8)
[2020-08-28 06:00] LABS: Albumin Level 2.4 gm/dl (3.4-5.0); BUN Creatinine Ratio 24.2 (10-20); Calcium 7.8 mg/dl (8.5-10.1); Creatinine Clr Calc Pharmacy 21.3 ml/min; Est GFR (African American) 17.4; Magnesium 2.3 mg/dl (1.8-2.4); Potassium 3.7 mmol/L (3.5-5.1)
[2020-08-28 06:02] LABS: Albumin Globulin Ratio 0.6 (0.9-2); Bilirubin,Total 0.6 mg/dl (0.2-1); Globulin 3.9 gm/dl (2.5-4.0); Phosphorus 5.8 mg/dl (2.5-4.9); Total Protein 6.3 gm/dl (6.4-8.2)
[2020-08-28] MEDS: LACTULOSE SYRUP 30 GM/45 ML UDP PO SCH ×4 (08:12→20:35)
[2020-08-28] MEDS: INSULIN GLARGINE SOLOSTAR 100 UNITS/ML 3 ML PEN SC SCH ×2 (08:12→20:36)
[2020-08-28] MEDS: rifAXIMin 550 MG TABLET PO SCH ×2 (08:12→20:39)
[2020-08-28] MEDS: FAMOTIDINE 20 MG in SYRINGE 3 ML IV SCH (08:19)
--- NOTE | 2020-08-28 09:42 | Critical Care Progress Note ---
Date of Service August 28, 2020 Assessment & Plan (1) Cardiac arrest following intubation: Reason Critically Ill: Profound hypothermia, respiratory arrest followed by cardiac arrest PLAN: Neuro: Acute encephalopathy: Significant improvement -Presumptive metabolic: -Hepatic encephalopathy -Lactulose p.o., rifaximin Resp: Acute respiratory failure: Resolved -Secondary to profound metabolic acidosis -Worsened with end-stage kidney disease patient does not want dialysis (this is known from previous records) CV: Hypothermia: Resolved -temperature management catheter removed 08/27 Hypotension: Resolved Cardiac arrest Symptomatic bradycardia -6-second pause -Cardiology consult pending -Off dopamine with rewarming and discontinued at 4 AM Fluids/Renal: End-stage renal disease -Reviewed renal notes this appears to be end-stage disease and dialysis would be futile care Hypernatremia and hyperchloremia: Worsened -Finn for strict I's and O's -Hyperchloremia and hypernatremia -50 g of 25% albumin given on 08/26 -500 mg Diuril twice daily x2 doses on 08/27 -Creatinine continues to worsen has significant azotemia ID: vancomycin and Rocephin - 48 hours of vancomycin now discontinued -Blood cultures no growth to date, no oxygen deficit, urine culture pending -No obvious source aside from hypothermia -Rocephin will run 7-day course GI/Nutrition: Heart healthy diet with 1800 mL fluid restriction and low protein End-stage liver disease secondary to hepatitis C -History of esophageal varices Heme: Baseline anemia -1 unit packed red blood cells for hemoglobin of 6.7 transfused 08/27: Adequate response -Suspect bone marrow suppression and dilution: Reticulocyte count appropriate DVT prophylaxis: Heparin 5000 twice daily: Holding today in case of possible pacemaker restart 08/29 Endocrine: ICU hyperglycemia protocol Vascular access: Right subclavian temperature management catheter discontinued 08/27 Arterial line: Discontinued 08/27 Code Status: Reviewed prior CODE STATUS documentation -Discussed with palliative care, hospitalist service Dr. Antony, we are both in agreement that the patient has reached an end-stage terminal condition with regards to his kidney disease as well as his liver disease there is no meaningful chance of recovery of either and he has frequently declined using his lactulose and has refused dialysis previously. There has been discussions with the patient's brother who has also been in agreement with a comfort/palliative approach. A cardiology consult is pending but I believe a pacemaker given the patient's tendency of medical noncompliance would be ill advised especially in this comfort setting. Dr. Antony and I both agree that the patient's intentions have been towards DNR DNI in event of cardiac arrest and overriding comfort/palliative approach and I have updated his CODE STATUS appropriately. Patient is stable for downgrade out of ICU. (2) Hypothermia: (3) Bradycardia: (4) Obtundation: (5) Anasarca: Admission and Anticipated Discharge Date Admission Date: August 26, 2020 Subjective Arouses to voice, otherwise spontaneously awake at times difficult to understand this is reported near his baseline and certainly at his baseline yesterday Review of Systems Review of Systems: Unobtainable due to reduced consciousness Physical Exam Physical Exam: General: Somnolent. nontoxic. Glascow Coma Scale: Eyes: 4, Verbal 4, Motor 6, Total 14 Skin: Warm, dry, Head: Atraumatic Ears, nose, mouth and throat: airway patent Cardiovascular: Normal peripheral perfusion Respiratory: no respiratory distress Gastrointestinal: Rotund, umbilical hernia that is freely reducible Musculoskeletal: No deformity Results & Data Results & Data ([facility]) Vital Signs (Past 12 Hours) Vital Signs Temp Pulse Resp BP Pulse Ox 08/28/20 06:20 69 22 96 08/28/20 06:00 36.8 C 69 23 97/51 L 97 08/28/20 05:30 36.6 C 69 21 99 08/28/20 05:10 36.6 C 71 15 99 08/28/20 05:01 36.6 C 70 17 98 08/28/20 05:00 36.6 C 71 10 L 108/52 L 98 08/28/20 04:45 36.5 C 74 11 L 99 08/28/20 04:30 36.6 C 74 12 98 08/28/20 04:01 36.7 C 72 14 98 08/28/20 04:00 36.7 C 72 14 114/55 L 97 08/28/20 03:30 36.7 C 73 10 L 97 08/28/20 03:27 36.6 C 08/28/20 03:26 36.6 C 73 12 113/54 L 97 08/28/20 03:20 36.6 C 72 20 96 08/28/20 03:10 36.5 C 72 16 97 01/06/21 03:01 36.5 C 74 18 97 08/28/20 03:00 36.5 C 73 21 113/54 L 97 08/28/20 02:30 36.3 C L 75 18 97 08/28/20 02:10 36.1 C L 73 16 97 08/28/20 02:01 36.0 C L 75 15 97 08/28/20 02:00 36.0 C L 69 20 123/71 95 08/28/20 01:50 35.9 C L 73 15 97 08/28/20 01:40 35.8 C L 72 17 97 08/28/20 01:30 35.7 C L 73 16 96 08/28/20 01:20 35.7 C L 72 12 96 08/28/20 01:12 68 08/28/20 01:10 35.6 C L 71 12 97 08/28/20 01:01 35.5 C L 71 12 97 08/28/20 01:00 35.5 C L 70 17 140/67 96 08/28/20 00:30 35.3 C L 70 10 L 97 08/28/20 00:01 35.1 C L 70 10 L 97 08/28/20 00:00 35.1 C L 68 11 L 142/82 H 97 08/27/20 23:30 34.9 C L 70 19 94 08/27/20 23:01 34.6 C L 68 18 94 08/27/20 23:00 34.6 C L 68 19 162/85 H 94 08/27/20 22:30 34.2 C L 67 18 93 08/27/20 22:00 33.9 C L 67 14 168/75 H 94 Laboratory Results 08/28/20 08/28/20 08/28/20 Range/Units 07:33 04:39 04:35 WBC (4.8-10.8) K/uL RBC (4.7-6.1) M/uL Hgb (14.0-18.0) g/dL Hct (42-52) % MCV (80-100) fL MCH (25-34) pg MCHC (32-36) g/dL RDW Std Deviation (36.4-46.3) fL RDW Coeff of Kianna (11.5-14.5) % Plt Count (130-400) K/uL MPV (7.4-10.4) fL Immature Gran % (Auto) % Neut % (Auto) % Lymph % (Auto) % [place] % (Auto) % Eos % (Auto) % Baso % (Auto) % Reticulocyte % (Auto) (0.5-2.0) % Neut # (Auto) (1.4-6.5) K/uL Lymph # (Auto) (1.2-3.4) K/uL [place] # (Auto) (0.11-0.59) K/uL Eos # (Auto) (0-0.5) K/uL Baso # (Auto) (0-0.2) K/uL Reticulocyte # (0.02-0.10) 10^6/uL Immature Gran # (Auto) (0.00-0.02) K/uL Absolute Nucleated RBC (0-0) K/uL Nucleated RBC % (auto) % Anisocytosis PT 14.7 H (9.0-12.0) Seconds INR 1.4 H (0.9-1.1) Sodium (136-145) mmol/L Potassium (3.5-5.1) mmol/L Chloride (98-107) mmol/L Carbon Dioxide (21-32) mmol/L Anion Gap (3-11) BUN (7-18) mg/dl Creatinine (0.6-1.4) mg/dl Est Cr Clr Drug Dosing ml/min Est GFR ( Amer) Est GFR (Non-Af Amer) BUN/Creatinine Ratio (10-20) Glucose (70-99) mg/dl POC Glucose 118 H 99 (70-99) mg/dl Calcium (8.5-10.1) mg/dl Phosphorus (2.5-4.9) mg/dl Magnesium (1.8-2.4) mg/dl Total Bilirubin (0.2-1) mg/dl AST (15-37) U/L ALT (12-78) U/L Alkaline Phosphatase (45-117) U/L Total Protein (6.4-8.2) gm/dl Albumin (3.4-5.0) gm/dl Globulin (2.5-4.0) gm/dl Albumin/Globulin Ratio (0.9-2) 08/28/20 08/28/20 08/28/20 Range/Units 04:35 04:35 04:08 WBC 5.51 (4.8-10.8) K/uL RBC 2.28 L (4.7-6.1) M/uL Hgb 7.4 L (14.0-18.0) g/dL Hct 22.9 L (42-52) % MCV 100.4 H (80-100) fL MCH 32.5 (25-34) pg MCHC 32.3 (32-36) g/dL RDW Std Deviation 75.4 H (36.4-46.3) fL RDW Coeff of Kianna 20.8 H (11.5-14.5) % Plt Count 53 L (130-400) K/uL MPV 12.0 H (7.4-10.4) fL Immature Gran % (Auto) 0.2 % Neut % (Auto) 78.8 % Lymph % (Auto) 7.8 % [place] % (Auto) 12.5 % Eos % (Auto) 0.7 % Baso % (Auto) 0.0 % Reticulocyte % (Auto) (0.5-2.0) % Neut # (Auto) 4.34 (1.4-6.5) K/uL Lymph # (Auto) 0.43 L (1.2-3.4) K/uL [place] # (Auto) 0.69 H (0.11-0.59) K/uL Eos # (Auto) 0.04 (0-0.5) K/uL Baso # (Auto) 0.00 (0-0.2) K/uL Reticulocyte # (0.02-0.10) 10^6/uL Immature Gran # (Auto) 0.01 (0.00-0.02) K/uL Absolute Nucleated RBC 0.06 H (0-0) K/uL Nucleated RBC % (auto) 1.1 % Anisocytosis Present PT (9.0-12.0) Seconds INR (0.9-1.1) Sodium 152 H (136-145) mmol/L Potassium 3.7 (3.5-5.1) mmol/L Chloride 125 H (98-107) mmol/L Carbon Dioxide 22 (21-32) mmol/L Anion Gap 5.0 (3-11) BUN 95 H (7-18) mg/dl Creatinine 3.92 H D (0.6-1.4) mg/dl Est Cr Clr Drug Dosing 21.3 ml/min Est GFR ( Amer) 17.4 Est GFR (Non-Af Amer) 15.0 BUN/Creatinine Ratio 24.2 H (10-20) Glucose 76 (70-99) mg/dl POC Glucose 75 (70-99) mg/dl Calcium 7.8 L (8.5-10.1) mg/dl Phosphorus 5.8 H (2.5-4.9) mg/dl Magnesium 2.3 (1.8-2.4) mg/dl Total Bilirubin 0.6 (0.2-1) mg/dl AST 23 (15-37) U/L ALT 24 (12-78) U/L Alkaline Phosphatase 96 (45-117) U/L Total Protein 6.3 L (6.4-8.2) gm/dl Albumin 2.4 L (3.4-5.0) gm/dl Globulin 3.9 (2.5-4.0) gm/dl Albumin/Globulin Ratio 0.6 L (0.9-2) 08/28/20 08/27/20 08/27/20 Range/Units 04:06 23:42 20:51 WBC (4.8-10.8) K/uL RBC (4.7-6.1) M/uL Hgb (14.0-18.0) g/dL Hct (42-52) % MCV (80-100) fL MCH (25-34) pg MCHC (32-36) g/dL RDW Std Deviation (36.4-46.3) fL RDW Coeff of Kianna (11.5-14.5) % Plt Count (130-400) K/uL MPV (7.4-10.4) fL Immature Gran % (Auto) % Neut % (Auto) % Lymph % (Auto) % [place] % (Auto) % Eos % (Auto) % Baso % (Auto) % Reticulocyte % (Auto) (0.5-2.0) % Neut # (Auto) (1.4-6.5) K/uL Lymph # (Auto) (1.2-3.4) K/uL [place] # (Auto) (0.11-0.59) K/uL Eos # (Auto) (0-0.5) K/uL Baso # (Auto) (0-0.2) K/uL Reticulocyte # (0.02-0.10) 10^6/uL Immature Gran # (Auto) (0.00-0.02) K/uL Absolute Nucleated RBC (0-0) K/uL Nucleated RBC % (auto) % Anisocytosis PT (9.0-12.0) Seconds INR (0.9-1.1) Sodium (136-145) mmol/L Potassium (3.5-5.1) mmol/L Chloride (98-107) mmol/L Carbon Dioxide (21-32) mmol/L Anion Gap (3-11) BUN (7-18) mg/dl Creatinine (0.6-1.4) mg/dl Est Cr Clr Drug Dosing ml/min Est GFR ( Amer) Est GFR (Non-Af Amer) BUN/Creatinine Ratio (10-20) Glucose (70-99) mg/dl POC Glucose 69 L* 97 105 H (70-99) mg/dl Calcium (8.5-10.1) mg/dl Phosphorus (2.5-4.9) mg/dl Magnesium (1.8-2.4) mg/dl Total Bilirubin (0.2-1) mg/dl AST (15-37) U/L ALT (12-78) U/L Alkaline Phosphatase (45-117) U/L Total Protein (6.4-8.2) gm/dl Albumin (3.4-5.0) gm/dl Globulin (2.5-4.0) gm/dl Albumin/Globulin Ratio (0.9-2) 08/27/20 08/27/20 08/27/20 Range/Units 16:04 14:06 11:21 WBC (4.8-10.8) K/uL RBC (4.7-6.1) M/uL Hgb 7.6 L (14.0-18.0) g/dL Hct 23.6 L (42-52) % MCV (80-100) fL MCH (25-34) pg MCHC (32-36) g/dL RDW Std Deviation (36.4-46.3) fL RDW Coeff of Kianna (11.5-14.5) % Plt Count (130-400) K/uL MPV (7.4-10.4) fL Immature Gran % (Auto) % Neut % (Auto) % Lymph % (Auto) % [place] % (Auto) % Eos % (Auto) % Baso % (Auto) % Reticulocyte % (Auto) (0.5-2.0) % Neut # (Auto) (1.4-6.5) K/uL Lymph # (Auto) (1.2-3.4) K/uL [place] # (Auto) (0.11-0.59) K/uL Eos # (Auto) (0-0.5) K/uL Baso # (Auto) (0-0.2) K/uL Reticulocyte # (0.02-0.10) 10^6/uL Immature Gran # (Auto) (0.00-0.02) K/uL Absolute Nucleated RBC (0-0) K/uL Nucleated RBC % (auto) % Anisocytosis PT (9.0-12.0) Seconds INR (0.9-1.1) Sodium (136-145) mmol/L Potassium (3.5-5.1) mmol/L Chloride (98-107) mmol/L Carbon Dioxide (21-32) mmol/L Anion Gap (3-11) BUN (7-18) mg/dl Creatinine (0.6-1.4) mg/dl Est Cr Clr Drug Dosing ml/min Est GFR ( Amer) Est GFR (Non-Af Amer) BUN/Creatinine Ratio (10-20) Glucose (70-99) mg/dl POC Glucose 115 H 153 H (70-99) mg/dl Calcium (8.5-10.1) mg/dl Phosphorus (2.5-4.9) mg/dl Magnesium (1.8-2.4) mg/dl Total Bilirubin (0.2-1) mg/dl AST (15-37) U/L ALT (12-78) U/L Alkaline Phosphatase (45-117) U/L Total Protein (6.4-8.2) gm/dl Albumin (3.4-5.0) gm/dl Globulin (2.5-4.0) gm/dl Albumin/Globulin Ratio (0.9-2) 08/27/20 Range/Units 04:48 WBC (4.8-10.8) K/uL RBC (4.7-6.1) M/uL Hgb (14.0-18.0) g/dL Hct (42-52) % MCV (80-100) fL MCH (25-34) pg MCHC (32-36) g/dL RDW Std Deviation (36.4-46.3) fL RDW Coeff of Kianna (11.5-14.5) % Plt Count (130-400) K/uL MPV (7.4-10.4) fL Immature Gran % (Auto) % Neut % (Auto) % Lymph % (Auto) % [place] % (Auto) % Eos % (Auto) % Baso % (Auto) % Reticulocyte % (Auto) 3.2 H (0.5-2.0) % Neut # (Auto) (1.4-6.5) K/uL Lymph # (Auto) (1.2-3.4) K/uL [place] # (Auto) (0.11-0.59) K/uL Eos # (Auto) (0-0.5) K/uL Baso # (Auto) (0-0.2) K/uL Reticulocyte # 0.06 (0.02-0.10) 10^6/uL Immature Gran # (Auto) (0.00-0.02) K/uL Absolute Nucleated RBC (0-0) K/uL Nucleated RBC % (auto) % Anisocytosis PT (9.0-12.0) Seconds INR (0.9-1.1) Sodium (136-145) mmol/L Potassium (3.5-5.1) mmol/L Chloride (98-107) mmol/L Carbon Dioxide (21-32) mmol/L Anion Gap (3-11) BUN (7-18) mg/dl Creatinine (0.6-1.4) mg/dl Est Cr Clr Drug Dosing ml/min Est GFR ( Amer) Est GFR (Non-Af Amer) BUN/Creatinine Ratio (10-20) Glucose (70-99) mg/dl POC Glucose (70-99) mg/dl Calcium (8.5-10.1) mg/dl Phosphorus (2.5-4.9) mg/dl Magnesium (1.8-2.4) mg/dl Total Bilirubin (0.2-1) mg/dl AST (15-37) U/L ALT (12-78) U/L Alkaline Phosphatase (45-117) U/L Total Protein (6.4-8.2) gm/dl Albumin (3.4-5.0) gm/dl Globulin (2.5-4.0) gm/dl Albumin/Globulin Ratio (0.9-2) Coding Level of Care Code 55753 [facility] 3 Diagnoses Cardiac arrest following intubation I97.89; I46.9 Hypothermia T68.XXXA Encounter type: initial encounter Bradycardia R00.1 Obtundation R40.1 Anasarca R60.1 (1) Hypothermia Encounter type: initial encounter Qualified Code(s): T68.XXXA - Hypothermia, initial encounter
[2020-08-28] MEDS: THIAMINE HCL 100 MG in SYRINGE 9 ML IV SCH (11:48)
[2020-08-28] MEDS: cefTRIAXone SODIUM 2,000 MG in DEXTROSE 5% 50 ML IV SCH (11:55)
[2020-08-28] MEDS ORDERED: INSULIN ASPART 100 UNITS/ML 3 ML PEN SC SCH (12:00)
--- NOTE | 2020-08-28 14:32 | Cardiology Consultation ---
Date of Consultation August 28, 2020 Assessment & Plan (1) Bradycardia: -has been persistent since admission. -did demonstrate several significant pauses (over 6 seconds in length). -this is likely related to his acute on chronic illness. -would not recommend permanent pacemaking as patient has refused other invasive procedures. -currently a DNR and will likely undergo palliative care. (2) Cardiac arrest following intubation: -poor prognosis. (3) Hypertension: -medications currently on hold. History of Present Illness Attending Physician: Al Antony MD History of Present Illness Mr. Moreira is a 65-year-old male admitted on August 26 with hepatic encephalopathy, bradycardia, and hypothermia. The patient demonstrates significant bradycardia with pauses yesterday, and therefore, this consultation was ordered to consider a permanent pacemaker. The patient has been doing poorly since admission. He was intubated on the 27 August and had an arrest following that procedure. He was successfully resuscitated, however, remained bradycardic. He required intravenous dopamine to treat his bradycardia. Yesterday, he had several prolonged episodes of sinus arrest/ventricular standstill, however, did recover circulation spontaneously. Review of his chart notes that he is now a DNR. He has refused care of his chronic hepatic failure and refuses to undergo hemodialysis for his renal failure. Comfort measures are being considered at this time. The patient was minimally responsive during my evaluation today. Past medical and surgical history 1. Hypertension 2. GERD 3. Diabetes mellitus 4. Chronic renal failure 5. Chronic hepatic failure 6. Esophageal varices Social history Inmate at [facility] No tobacco alcohol. Family history Noncontributory Review of systems Unobtainable Allergies Allergy/AdvReac Type Severity Reaction Status Date / Time No Known Drug Allergies Allergy NKDA Unverified 08/26/20 04:25 Home Medications Medication Instructions Recorded Confirmed Type lactulose 20 g PO TID PRN 06/28/20 08/26/20 History Novolin 70/30 U-100 Insulin 30 unit SUBCUT QAM 08/21/20 08/26/20 History Novolin R Regular U-100 Insuln 1 sliding scale dose SUBCUT 08/21/20 08/26/20 History USEASDIRECTD Xifaxan 550 mg PO BID 08/21/20 08/26/20 History bumetanide 1 mg PO DAILY 08/21/20 08/26/20 History levalbuterol tartrate [Xopenex HFA] 2 inh INHALATION QID 08/21/20 08/26/20 History nadolol 40 mg PO BID 08/21/20 08/26/20 History spironolactone 100 mg PO DAILY 08/21/20 08/26/20 History witch beulah-glycerin (hamamel) 1 pad TOPICAL TID PRN 08/21/20 08/26/20 History zinc oxide 1 applic TOPICAL BID 08/21/20 08/26/20 History Patient History Medical History Acute hepatic encephalopathy Acute kidney injury Allergic rhinitis Anemia, unspecified Chronic kidney disease, unspecified Confusion Esophageal varices without bleeding Flatulence GERD (gastroesophageal reflux disease) HCV (hepatitis C virus) Treated Hyperlipidemia Hypertension Liver cirrhosis Low back pain Metabolic acidosis Microscopic hematuria Onychomycosis Palliative care encounter Partial small bowel obstruction Proteinuria Pruritus, unspecified Type 2 diabetes mellitus Umbilical hernia without obstruction or gangrene Social History Smoking Status: Former smoker Second Hand Exposure: No; Hx Alcohol Use: No Hx Substance Use: No Preferred Language: Persian Communication Ability: Impaired Parole Agent Required: No Beliefs That Will Affect Care: None Current Living Situation: Legal Guardian and Other Current Living Situation Comment: DEEPIKA Braxton Feels Safe at Home: Yes Assistive Devices: Oxygen - Continuous Physical Exam Physical Exam: In general this is well-developed black male in no acute distress. HEENT exam is negative. Neck is supple with full carotid upstrokes. No obvious bruits. Jugular venous pressure is difficult to assess. Cardiovascular exam reveals a regular rhythm with distant heart sounds. No obvious murmurs. No S3. Lungs are clear anteriorly. Abdomen is soft. Extremities reveal intact radial artery pulses bilaterally. There is no peripheral edema. Results & Data ([facility]) Vital Signs (Past 12 Hours) Vital Signs Temp Pulse Resp BP Pulse Ox 08/28/20 12:01 68 16 96 08/28/20 12:00 36.7 C 68 17 117/58 L 96 08/28/20 11:01 68 19 122/63 96 08/28/20 11:00 66 17 96 08/28/20 10:01 66 23 96 08/28/20 10:00 69 19 115/61 97 08/28/20 09:01 69 14 96 08/28/20 09:00 69 7 L 116/60 97 08/28/20 08:01 68 20 96 08/28/20 08:00 36.7 C 69 19 115/59 L 96 08/28/20 07:01 69 23 96 08/28/20 07:00 71 23 111/58 L 96 08/28/20 06:20 69 22 96 08/28/20 06:00 36.8 C 69 23 97/51 L 97 08/28/20 05:30 36.6 C 69 21 99 08/28/20 05:10 36.6 C 71 15 99 08/28/20 05:01 36.6 C 70 17 98 08/28/20 05:00 36.6 C 71 10 L 108/52 L 98 08/28/20 04:45 36.5 C 74 11 L 99 08/28/20 04:30 36.6 C 74 12 98 08/28/20 04:01 36.7 C 72 14 98 08/28/20 04:00 36.7 C 72 14 114/55 L 97 08/28/20 03:30 36.7 C 73 10 L 97 08/28/20 03:27 36.6 C 08/28/20 03:26 36.6 C 73 12 113/54 L 97 08/28/20 03:20 36.6 C 72 20 96 08/28/20 03:10 36.5 C 72 16 97 08/28/20 03:01 36.5 C 74 18 97 08/28/20 03:00 36.5 C 73 21 113/54 L 97 08/28/20 02:30 36.3 C L 75 18 97 Laboratory Results CBC notes hemoglobin of 7.4, hematocrit 22.9, white count 5.5, [place] [address]. Electrolytes note a sodium of 152, potassium 3.7, chloride 125, BUN 22, creatinine 95, glucose of 3.92. Troponin I level is undetectable less than 0.015. Magnesium level is normal at 2.3. Diagnostic Findings EKG reveals sinus bradycardia and low voltage throughout. There is a prolonged QT interval. radiation monitor was reviewed and noted bradycardia and pauses as described. (1) Hypertension Hypertension type: essential hypertension Qualified Code(s): I10 - Essential (primary) hypertension
--- NOTE | 2020-08-28 15:13 | Hospitalist Progress Note ---
Date of Service August 28, 2020 Assessment & Plan (1) Acute hepatic encephalopathy: Due to cirrhosis. - Continue lactulose & rifaximin - Monitor mental status -> Improving today. (2) CKD (chronic kidney disease), stage IV: Baseline Cr ~3.0 - 4.0. - Avoid nephrotoxins - Finn - Cr presently at high end of baseline: 4.0 today. (3) Esophageal varices without bleeding: Prior notes indicate a hx of esophageal varices, but without any EGD in our system. - Hemoglobin was at baseline (8.7 on admission), then dropped to 6.7 on 08/27. Now stable. - Holding nadolol - Continue ceftriaxone x 7 day course. (4) Hypothermia: Secondary to infection/sepsis/metabolic encephalopathy/adrenal insuff. - Warming blanket - Treatment of underlying medical conditions - AM cortisol tomorrow (5) Bradycardia: Sinus bradycardia. No EKG changes of ischemia. Troponin negative. - Hold nadolol (6) Liver cirrhosis: Due to HCV. - Restart Bumex and spironolactone (7) Hypertension: Blood pressure higher today. - Hold nadolol - Restarted diuretics as above - Monitor (8) Type 2 diabetes mellitus: A1c was 5.4% in 06/2020. - Continue basal/bolus - Blood sugars have been 125-150 in the last 24 hours. - Glycemic pharmacy following (9) GERD (gastroesophageal reflux disease): Chronic. - Pepcid IV daily (10) DVT prophylaxis: Heparin presently via ICU team. Admission and Anticipated Discharge Date Admission Date: August 26, 2020 Subjective Improving today. More clear. Still with pain in the legs. Reports no fevers/chills, chest pain, shortness of breath, abdominal pain, nausea, or vomiting. Physical Exam Constitutional: WD/WN, vitals as above + acute distress and + lethargic Eyes: EOM intact bilaterally; no conjunctival abnormality ENMT: external ear and nose normal, oropharynx normal Neck: trachea midline, no thyromegaly normal visual inspection Respiratory: normal respiratory effort, lungs clear to auscultation no respiratory distress Cardiovascular: RRR, no murmur, no edema Gastrointestinal (Abdomen): Inspection/Auscultation: abdomen normal to inspection, + abdomen distended and normal bowel sounds Percussion/Palpation: abdomen soft; abdomen nontender, no guarding and abdomen not rigid Musculoskeletal: no cyanosis or clubbing, extremities motor strength 5/5 Skin: no rashes, warm and dry Neurologic: moves all extremities and awake Psychiatric: Orientation: alert, oriented to person and cooperative Results & Data Results & Data ([facility]) Vital Signs (Past 12 Hours) Vital Signs Temp Pulse Resp BP Pulse Ox 08/28/20 12:01 68 16 96 08/28/20 12:00 36.7 C 68 17 117/58 L 96 08/28/20 11:01 68 19 122/63 96 08/28/20 11:00 66 17 96 08/28/20 10:01 66 23 96 08/28/20 10:00 69 19 115/61 97 08/28/20 09:01 69 14 96 08/28/20 09:00 69 7 L 116/60 97 08/28/20 08:01 68 20 96 08/28/20 08:00 36.7 C 69 19 115/59 L 96 08/28/20 07:01 69 23 96 08/28/20 07:00 71 23 111/58 L 96 08/28/20 06:20 69 22 96 08/28/20 06:00 36.8 C 69 23 97/51 L 97 08/28/20 05:30 36.6 C 69 21 99 08/28/20 05:10 36.6 C 71 15 99 08/28/20 05:01 36.6 C 70 17 98 08/28/20 05:00 36.6 C 71 10 L 108/52 L 98 08/28/20 04:45 36.5 C 74 11 L 99 08/28/20 04:30 36.6 C 74 12 98 08/28/20 04:01 36.7 C 72 14 98 08/28/20 04:00 36.7 C 72 14 114/55 L 97 08/28/20 03:30 36.7 C 73 10 L 97 08/28/20 03:27 36.6 C 08/28/20 03:26 36.6 C 73 12 113/54 L 97 08/28/20 03:20 36.6 C 72 20 96 PG Care Time/CCT Total # of Minutes Spent Total Time Spent with Patient: Total time spent is greater than 50% in coordination of care (as documented) at patient's floor/unit and/or counseling patient: Coding Level of Care Code 15179 [facility] 3 Diagnoses Acute hepatic encephalopathy K72.00 CKD (chronic kidney disease), stage IV N18.4 Esophageal varices without bleeding I85.00 Esophageal varices type: unspecified type Hypothermia T68.XXXA Encounter type: initial encounter Bradycardia R00.1 Liver cirrhosis K74.60 Hepatic cirrhosis type: unspecified hepatic cirrhosis Ascites presence: without ascites Hypertension I10 Hypertension type: essential hypertension Type 2 diabetes mellitus E11.9; Z79.4 Diabetes mellitus press tender long goods insulin use: with intermediate use Diabetes mellitus complication status: without complication GERD (gastroesophageal reflux disease) K21.9 Esophagitis presence: esophagitis presence not specified DVT prophylaxis Z29.9 (1) Esophageal varices without bleeding Esophageal varices type: unspecified type Qualified Code(s): I85.00 - Esophageal varices without bleeding (2) Hypothermia Encounter type: initial encounter Qualified Code(s): T68.XXXA - Hypothermia, initial encounter (3) Liver cirrhosis Hepatic cirrhosis type: unspecified hepatic cirrhosis Ascites presence: without ascites Qualified Code(s): K74.60 - Unspecified cirrhosis of liver (4) Hypertension Hypertension type: essential hypertension Qualified Code(s): I10 - Essential (primary) hypertension (5) Type 2 diabetes mellitus Diabetes mellitus press tender long goods insulin use: with press tender long goods use Diabetes mellitus complication status: without complication Qualified Code(s): E11.9 - Type 2 diabetes mellitus without complications; Z79.4 - residential (current) use of insulin (6) GERD (gastroesophageal reflux disease) Esophagitis presence: esophagitis presence not specified Qualified Code(s): K21.9 - Gastro-esophageal reflux disease without esophagitis
[2020-08-28] MEDS ORDERED: Nursing to Pharmacy Communication SCH (17:45)
[2020-08-29] MEDS ORDERED: LIDOCAINE 2% JELLY 5 ML TUBE ONE (05:20)
[2020-08-29 07:46] LABS: Hematocrit (blood only) 23.9 % (42-52); Hemoglobin 7.6 g/dL (14.0-18.0); Mean Corpuscular Hemoglobin 32.3 pg (25-34); Mean Corpuscular Hgb Conc 31.8 g/dL (32-36); Mean Corpuscular Volume 101.7 fL (80-100); RDW Coefficient of Variation 21.1 % (11.5-14.5); RDW Standard Deviation 77.3 fL (36.4-46.3); Red Blood Count 2.35 M/uL (4.7-6.1); White Blood Count 6.15 K/uL (4.8-10.8)
[2020-08-29 07:48] LABS: Mean Platelet Volume 11.6 fL (7.4-10.4); Platelet Count 53 K/uL (130-400)
[2020-08-29 07:56] LABS: INR 1.4 (0.9-1.1); Prothrombin Time 14.4 Seconds (9.0-12.0)
[2020-08-29 08:07] LABS: Anisocytosis Present; Eosinophils # (auto) 0.02 K/uL (0-0.5); Eosinophils % (auto) 0.3 %; Immature Granulocytes # (auto) 0.02 K/uL (0.00-0.02); Immature Granulocytes % (auto) 0.3 %; Lymphocytes # (auto) 0.58 K/uL (1.2-3.4); Lymphocytes % (auto) 9.4 %; Monocytes % (auto) 9.8 %; Neutrophils # (auto) 4.93 K/uL (1.4-6.5); Neutrophils % (auto) 80.2 %; Toxic Vacuolation 1+
[2020-08-29] MEDS: INSULIN ASPART 100 UNITS/ML 3 ML PEN SC SCH ×4 (08:12→20:43)
[2020-08-29] MEDS: LACTULOSE SYRUP 30 GM/45 ML UDP PO SCH ×3 (08:16→20:42)
[2020-08-29] MEDS: HEPARIN SOD 5,000 UNIT/0.5 ML VIAL SQ SCH ×2 (08:16→20:42)
[2020-08-29] MEDS: rifAXIMin 550 MG TABLET PO SCH ×2 (08:19→20:42)
[2020-08-29] MEDS: INSULIN GLARGINE SOLOSTAR 100 UNITS/ML 3 ML PEN SC SCH ×2 (08:22→16:56)
[2020-08-29 08:38] LABS: Albumin Globulin Ratio 0.6 (0.9-2); Albumin Level 2.5 gm/dl (3.4-5.0); Bilirubin,Total 0.9 mg/dl (0.2-1); Creatinine Clr Calc Pharmacy 18.7 ml/min; Est GFR (African American) 14.9; Est GFR (Non-African American) 12.9; Globulin 4.1 gm/dl (2.5-4.0); Magnesium 2.3 mg/dl (1.8-2.4); Phosphorus 5.4 mg/dl (2.5-4.9); Potassium 4.3 mmol/L (3.5-5.1); Total Protein 6.6 gm/dl (6.4-8.2)
[2020-08-29] MEDS: FAMOTIDINE 20 MG in SYRINGE 3 ML IV SCH (09:07)
[2020-08-29] MEDS: cefTRIAXone SODIUM 2,000 MG in DEXTROSE 5% 50 ML IV SCH (10:17)
[2020-08-29] MEDS: THIAMINE HCL 100 MG in SYRINGE 9 ML IV SCH (12:17)
--- NOTE | 2020-08-29 13:55 | Pharmacy Report ---
Glycemic Control Progress Note - Date of Service August 29, 2020 - Scope Glycemic Pharmacist consulted for glycemic control to write orders per [facility] inpatient glycemic control protocol. - Objective Accuchecks BSG(last 24 hours):: 08/28/20 08/28/20 08/29/20 17:26 20:19 07:04 Glucose 115 H POC Glucose 100 H 110 H 08/29/20 08/29/20 08:12 11:36 Glucose POC Glucose 127 H 176 H - Recent Pertinent Medications The patient is currently receiving: * Basal insulin: Lantus 5 units every 24 hours * Correctional Insulin: Novolog Correction per scale ACHS Goal Range: Low 110 mg/dL - High 140 mg/dL Correction Factor: 25 mg/dL/unit * Prandial insulin: Per carb ratio of 1 unit per 8 grams CHO consumed - Outpatient Anti-Diabetic Meds N/A - Assessment & Plan ASSESSMENT: * See progress note from 08/26/20 for more background info, in short: * Pt receiving SQ basal bolus insulin regimen for hyperglycemia critical illness. Patient on Rocephin. * Patient is currently receiving an average of 5 units of insulin per day * 5 units of basal insulin * 0 units of prandial/correctional insulin * BSGs ranging 100 - 132 mg/dl over the past 24hrs * Changes needed to insulin regimen: * AM Fasting BSG = 127 mg/dl. This is in goal range for patient based on inpatient targets and co-morbidities. The patient had an order for Lantus 5 units if BSG > 140 mg/dL. He did not receive Lantus this morning. Will order 5 units with dinner then daily due to BSG > 160 mg/dL at lunch. * Post-prandial BSGs were in range yesterday but patient did not eat. * Total daily dose = <20 units. PLAN FOR INPATIENT GLYCEMIC CONTROL: * Continuing Lantus 5 units SQ daily * Continuing correction factor of 25 mg/dl/unit * Continuing carb ratio of 1 unit per 8 grams CHO consumed * Continuing goal range of Low 110 mg/dL - High 140 mg/dL RECOMMENDATIONS FOR DISCHARGE: * Patient's HbA1C indicates that he is not diabetic. * Continue to monitor at routine intervals as an outpatient. Thank you.
[2020-08-29] MEDS ORDERED: SODIUM CHLORIDE 0.9% 1000ML 1,000 ML IV SCH (16:30)
--- NOTE | 2020-08-29 21:07 | Hospitalist Progress Note ---
Date of Service August 29, 2020 Assessment & Plan (1) Acute hepatic encephalopathy: Due to cirrhosis. - Continue lactulose & rifaximin: however, patient is refusing this medication. - Monitor mental status -> appears somewhat drowsy today, unsure if just ignoring me if patient is trly becoming more lethargic. -Overall prognosis however is poor as patient has cirrhosis and ESRD. (2) CKD (chronic kidney disease), stage IV: Baseline Cr ~3.0 - 4.0. - Avoid nephrotoxins - Finn - Cr presently at high end of baseline: 4.4 today. (3) Esophageal varices without bleeding: Prior notes indicate a hx of esophageal varices, but without any EGD in our system. - Hemoglobin was at baseline (8.7 on admission), then dropped to 6.7 on 08/27. Now stable. - Holding nadolol - Continue ceftriaxone x 7 day course. (4) Hypothermia: Secondary to infection/sepsis/metabolic encephalopathy/adrenal insuff. - Warming blanket - Treatment of underlying medical conditions - AM cortisol tomorrow: not drawn yet. (5) Bradycardia: Sinus bradycardia. No EKG changes of ischemia. Troponin negative. - Hold nadolol (6) Liver cirrhosis: Due to HCV. diuretics held given kidney failure (7) Hypertension: Blood pressure higher today. - Hold nadolol - Restarted diuretics as above - Monitor (8) Type 2 diabetes mellitus: A1c was 5.4% in 06/2020. - Continue basal/bolus - Blood sugars have been 125-150 in the last 24 hours. - Glycemic pharmacy following (9) GERD (gastroesophageal reflux disease): Chronic. - Pepcid IV daily (10) DVT prophylaxis: Heparin presently via ICU team. Admission and Anticipated Discharge Date Admission Date: August 26, 2020 Subjective Patient does not verbalize many complaints today. Patient is lying in bed, opens eyes, mumbles and just watches the television. Review of Systems Review of Systems: All systems reviewed & are unremarkable except as noted in HPI & below Physical Exam Physical Exam: Constitutional: WD/WN, vitals as above + lethargic Eyes: EOM intact bilaterally; no conjunctival abnormality ENMT: external ear and nose normal, oropharynx normal Neck: trachea midline, no thyromegaly normal visual inspection Respiratory: normal respiratory effort, lungs clear to auscultation no respiratory distress Cardiovascular: RRR, no murmur, no edema Gastrointestinal (Abdomen): Inspection/Auscultation: abdomen normal to inspection, + abdomen distended and normal bowel sounds Percussion/Palpation: abdomen soft; abdomen nontender, no guarding and abdomen not rigid Musculoskeletal: no cyanosis or clubbing, extremities motor strength 5/5 Skin: no rashes, warm and dry Neurologic: moves all extremities and awake Psychiatric: Orientation: alert, oriented to person and cooperative Results & Data Results & Data ([facility]) Vital Signs (Past 12 Hours) Vital Signs Temp Pulse Resp BP BP Pulse Ox 08/29/20 19:49 35.6 C L 63 20 168/88 H 98 08/29/20 19:45 35.6 C L 08/29/20 15:49 65 18 181/81 H 98 08/29/20 10:55 65 20 162/89 H 98 PG Care Time/CCT Total # of Minutes Spent Total Time Spent with Patient: Total time spent is greater than 50% in coordination of care (as documented) at patient's floor/unit and/or counseling patient: Coding Level of Care Code 31179 Subseq Hosp Care Lvl 3 Diagnoses Acute hepatic encephalopathy K72.00 CKD (chronic kidney disease), stage IV N18.4 Esophageal varices without bleeding I85.00 Esophageal varices type: unspecified type Hypothermia T68.XXXA Encounter type: initial encounter Bradycardia R00.1 Liver cirrhosis K74.60 Ascites presence: without ascites Hepatic cirrhosis type: unspecified hepatic cirrhosis Hypertension I10 Hypertension type: essential hypertension Type 2 diabetes mellitus E11.9; Z79.4 Diabetes mellitus complication status: without complication Diabetes mellitus mcfp insulin use: with truck terminal manager 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 GERD (gastroesophageal reflux disease) K21.9 Esophagitis presence: esophagitis presence not specified DVT prophylaxis Z29.9 Time Spent (min) 35 (1) Type 2 diabetes mellitus Diabetes mellitus complication status: without complication Diabetes mellitus truck terminal manager insulin use: with m[facility]p use Qualified Code(s): E11.9 - Type 2 d iabetes mellitus without complications; Z79.4 - [facility] (current) use of insulin (2) Hypothermia Encounter type: initial encounter Qualified Code(s): T68.XXXA - Hypothermia, initial encounter (3) Liver cirrhosis Ascites presence: without ascites Hepatic cirrhosis type: unspecified hepatic cirrhosis Qualified Code(s): K74.60 - Unspecified cirrhosis of liver (4) GERD (gastroesophageal reflux disease) Esophagitis presence: esophagitis presence not specified Qualified Code(s): K21.9 - Gastro-esophageal reflux disease without esophagitis (5) Esophageal varices without bleeding Esophageal varices type: unspecified type Qualified Code(s): I85.00 - Esophageal varices without bleeding (6) Hypertension Hypertension type: essential hypertension Qualified Code(s): I10 - Essential (primary) hypertension
[2020-08-30 07:57] LABS: INR 1.4 (0.9-1.1); Prothrombin Time 14.3 Seconds (9.0-12.0)
[2020-08-30] MEDS: INSULIN ASPART 100 UNITS/ML 3 ML PEN SC SCH ×4 (08:11→20:38)
[2020-08-30] MEDS: FAMOTIDINE 20 MG in SYRINGE 3 ML IV SCH (08:12)
[2020-08-30] MEDS: LACTULOSE SYRUP 30 GM/45 ML UDP PO SCH ×3 (08:12→20:37)
[2020-08-30] MEDS: rifAXIMin 550 MG TABLET PO SCH ×2 (08:12→20:37)
[2020-08-30] MEDS: HEPARIN SOD 5,000 UNIT/0.5 ML VIAL SQ SCH ×2 (08:12→20:37)
[2020-08-30] MEDS: INSULIN GLARGINE SOLOSTAR 100 UNITS/ML 3 ML PEN SC SCH (08:12)
[2020-08-30] MEDS: cefTRIAXone SODIUM 2,000 MG in DEXTROSE 5% 50 ML IV SCH (08:49)
[2020-08-30 09:34] LABS: Hematocrit (blood only) 24.2 % (42-52); Hemoglobin 7.6 g/dL (14.0-18.0); Mean Corpuscular Hemoglobin 32.2 pg (25-34); Mean Corpuscular Hgb Conc 31.4 g/dL (32-36); Mean Corpuscular Volume 102.5 fL (80-100); RDW Coefficient of Variation 20.5 % (11.5-14.5); RDW Standard Deviation 75.2 fL (36.4-46.3); Red Blood Count 2.36 M/uL (4.7-6.1); White Blood Count 5.26 K/uL (4.8-10.8)
[2020-08-30 09:37] LABS: Mean Platelet Volume 11.6 fL (7.4-10.4); Platelet Count 47 K/uL (130-400)
[2020-08-30 09:56] LABS: BUN Creatinine Ratio 22.4 (10-20); Calcium 8.5 mg/dl (8.5-10.1); Creatinine Clr Calc Pharmacy 18.5 ml/min; Est GFR (African American) 14.8; Est GFR (Non-African American) 12.7; Potassium 3.8 mmol/L (3.5-5.1)
[2020-08-30 10:07] LABS: Anisocytosis Present; Eosinophils # (auto) 0.07 K/uL (0-0.5); Eosinophils % (auto) 1.3 %; Immature Granulocytes # (auto) 0.01 K/uL (0.00-0.02); Immature Granulocytes % (auto) 0.2 %; Lymphocytes # (auto) 0.71 K/uL (1.2-3.4); Lymphocytes % (auto) 13.5 %; Monocytes # (auto) 0.61 K/uL (0.11-0.59); Monocytes % (auto) 11.6 %; Neutrophils # (auto) 3.86 K/uL (1.4-6.5); Neutrophils % (auto) 73.4 %
[2020-08-30] MEDS: THIAMINE HCL 100 MG in SYRINGE 9 ML IV SCH (12:09)
[2020-08-30] MEDS ORDERED: SODIUM BICARBONATE 8.4% 75 MEQ in DEXTROSE 5% 1,000 ML IV SCH (12:45)
--- NOTE | 2020-08-30 14:35 | Nephrology Consultation ---
Date of Consultation August 30, 2020 Assessment & Plan (1) Acute kidney injury: Non-oliguric. Clinical presentation suggestive of ATN superimposed on advanced CKD. Complicated by decreased EAV in setting of liver dysfunction and poor oral intake. Continue to hold diuretics. Medications are otherwise appropriately dosed for kidney function. IVF will be provided with D5W+75 mEq NaHCO3 @ 150 ml/hr. Overall, prognosis is guarded. As documented in the medical record, dialysis has not been included in the care plan given underlying advanced liver disease. Palliative care consultation appreciated. (2) Chronic kidney disease: Baseline creatinine has been ~3 mg/dL, eGFR ~20. CKD IV A3 complicated by multiple episodes of REDD. Based on prior evaluations, it was felt that dialysis would not provided significant therapeutic benefit given medical comorbidities (notable advanced cirrhosis - MELD >20 - not candidate for transplant and complicated by recurrent hepatic encephalopathy). (3) Acute hepatic encephalopathy: Remains on lactulose therapy. (4) Liver cirrhosis: Clinical presentation not consistent with acute hepatorenal syndrome. (5) Bradycardia: Improved. Cardiology consultation reviewed. (6) Anemia, unspecified: Stable. Epogen 77506 units IV provided today. Iron studies to be updated with next blood work. (7) Hypernatremia: Free water deficit >3 L. IV D5W + HCO3. Encourage oral fluids when appropriate. History of Present Illness Reason for Consultation: REDD/CKD Requesting Physician: Pete Pfeiffer Attending Physician: Pete Pfeiffer History of Present Illness Mr. Chicho Moreira is a 65-year-old male with cirrhosis (MELD >20), DM, hypertension, and advanced chronic kidney disease. The patient was seen and evaluated this AM at the request of Dr. Pfeiffer regarding his kidney dysfunction. I contacted DEEPIKA Braxton and discussed the patient's condition and plan of care with Power (medical accounts receivable specialist -[phone]). Chicho is known to me from prior admissions at [facility]. The patient has an extensive medical history and multiple hospitalizations. Chicho has cirrhosis complicated by varices and recurrent hepatic encephalopathy. He has baseline CKD IV-V. There have been multiple prior conversations regarding goals of care, including hemodialysis in the past. These are well documented in palliative care consultation notes as well as prior nephrology consultations during recent hospitalizations. Given the advanced nature of Chicho's liver disease and no candidacy for liver transplant, it has been noted that dialysis is unlikely to provide any therapeutic benefit and that the patient may not be able to tolerate the burden of therapy. Based on documentation from Dr. Kuhn during Chicho's recent ICU admission, it was determined that overall prognosis is guarded and treatment options limited. Chicho was admitted to [facility] on August 26 with mental status changes. He was found to be obtunded, bradycardic, and hypothermic. Laboratory studies demonstrated a notable metabolic acidosis. In the ER, the patient suffered cardiac arrest. He received approximately 30 seconds of chest compressions and 1 mg of IV epinephrine. Dopamine gtt continued in the ICU for persistent bradycardia post admission. He was downgraded from the ICU on August 28. Diuretics were temporarily resumed at that time. Chicho was admitted to [facility] at the end of July with anasarca. He was diuresed with Bumex prior to returning to the residential. On this admission, the patient was found to be volume depleted. He remains significantly lethargic and unable to maintain a conversation with me this AM. PO intake has been very poor. Chicho was arousable to sternal rub on my assessment. He provided short 'yes/no' answers to my questions prior to falling back to sleep. He denied pain. Hypothermia and bradycardia have improved. Beta-alisha therapy has been held. He is being treated for HE. No source of infection identified. Progressively rising creatinine and increasing free water deficit noted on laboratory studies. Finn catheter is draining concentrated urine. Chicho remains non-oliguric. Allergies Allergy/AdvReac Type Severity Reaction Status Date / Time No Known Drug Allergies Allergy NKDA Unverified 08/26/20 04:25 Home Medications Medication Instructions Recorded Confirmed Type lactulose 20 g PO TID PRN 06/28/20 08/26/20 History Novolin 70/30 U-100 Insulin 30 unit SUBCUT QAM 08/21/20 08/26/20 History Novolin R Regular U-100 Insuln 1 sliding scale dose SUBCUT 08/21/20 08/26/20 History USEASDIRECTD Xifaxan 550 mg PO BID 08/21/20 08/26/20 History bumetanide 1 mg PO DAILY 08/21/20 08/26/20 History levalbuterol tartrate [Xopenex HFA] 2 inh INHALATION QID 08/21/20 08/26/20 History nadolol 40 mg PO BID 08/21/20 08/26/20 History spironolactone 100 mg PO DAILY 08/21/20 08/26/20 History witch beulah-glycerin (hamamel) 1 pad TOPICAL TID PRN 08/21/20 08/26/20 History zinc oxide 1 applic TOPICAL BID 08/21/20 08/26/20 History Patient History Medical History Acute hepatic encephalopathy Acute kidney injury Allergic rhinitis Anemia, unspecified Chronic kidney disease, unspecified Confusion Esophageal varices without bleeding Flatulence GERD (gastroesophageal reflux disease) HCV (hepatitis C virus) Treated Hyperlipidemia Hypertension Liver cirrhosis Low back pain Metabolic acidosis Microscopic hematuria Onychomycosis Palliative care encounter Partial small bowel obstruction Proteinuria Pruritus, unspecified Type 2 diabetes mellitus Umbilical hernia without obstruction or gangrene Social History Smoking Status: Former smoker Second Hand Exposure: No; Hx Alcohol Use: No Hx Substance Use: No Preferred Language: Arabic Communication Ability: Impaired Office Machines 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 Required: No Beliefs That Will Affect Care: None Current Living Situation: Legal Guardian and Other Current Living Situation Comment: DEEPIKA Braxton Feels Safe at Home: Yes Review of Systems Review of Systems: Unobtainable due to cognitive status Physical Exam Constitutional: + ill appearing and + lethargic; no acute distress Eyes: no scleral abnormality and no corneal abnormality ENMT: Mouth: + dry oral mucous membranes; no oral mucosal abnormality Neck: normal visual inspection and trachea midline Respiratory: normal respiratory effort Auscultation: lungs clear to auscultation bilaterally and + diminished lung sounds Cardiovascular: Rate/Rhythm: regular rate Heart Sounds: normal S1 and normal S2 Extremities: + edema Gastrointestinal (Abdomen): Percussion/Palpation: abdomen soft; abdomen nontender Musculoskeletal: Extremities: no cyanosis and no clubbing Skin: normal turgor; no lesions Neurologic: Motor/Sensory: no tremor and no asterixis Psychiatric: Orientation: alert and oriented x 3 Genitourinary: Finn draining dark yellow urine Results & Data ([facility]) Vital Signs (Past 12 Hours) Vital Signs Temp Pulse Pulse Resp BP BP Pulse Ox 08/30/20 11:53 36.8 C 74 16 170/82 H 97 08/30/20 10:10 76 08/30/20 07:23 74 20 178/78 H 96 08/30/20 03:56 37.5 C 77 24 145/67 H 95 Laboratory Results Laboratory Results - last 24 hr 08/27/20 08/29/20 08/29/20 04:48 16:59 20:10 WBC RBC Hgb Hct MCV MCH MCHC RDW Std Deviation RDW Coeff of Kianna Plt Count MPV Immature Gran % (Auto) Neut % (Auto) Lymph % (Auto) Hettinger % (Auto) Eos % (Auto) Baso % (Auto) Neut # (Auto) Lymph # (Auto) Hettinger # (Auto) Eos # (Auto) Baso # (Auto) Immature Gran # (Auto) Anisocytosis PT INR Sodium Potassium Chloride Carbon Dioxide Anion Gap BUN Creatinine Est Cr Clr Drug Dosing Est GFR ( Amer) Est GFR (Non-Af Amer) BUN/Creatinine Ratio Glucose POC Glucose 218 H 192 H Calcium Cortisol AM Sample Ur Random Sodium Crossmatch See Detail 08/30/20 08/30/20 08/30/20 07:27 07:27 07:29 WBC 5.26 RBC 2.36 L Hgb 7.6 L Hct 24.2 L MCV 102.5 H MCH 32.2 MCHC 31.4 L RDW Std Deviation 75.2 H RDW Coeff of Kianna 20.5 H Plt Count 47 L MPV 11.6 H Immature Gran % (Auto) 0.2 Neut % (Auto) 73.4 Lymph % (Auto) 13.5 Hettinger % (Auto) 11.6 Eos % (Auto) 1.3 Baso % (Auto) 0.0 Neut # (Auto) 3.86 Lymph # (Auto) 0.71 L Hettinger # (Auto) 0.61 H Eos # (Auto) 0.07 Baso # (Auto) 0.00 Immature Gran # (Auto) 0.01 Anisocytosis Present PT 14.3 H INR 1.4 H Sodium Potassium Chloride Carbon Dioxide Anion Gap BUN Creatinine Est Cr Clr Drug Dosing Est GFR ( Amer) Est GFR (Non-Af Amer) BUN/Creatinine Ratio Glucose POC Glucose Calcium Cortisol AM Sample 19.00 Ur Random Sodium Crossmatch 08/30/20 08/30/20 08/30/20 07:29 07:38 10:00 WBC RBC Hgb Hct MCV MCH MCHC RDW Std Deviation RDW Coeff of Kianna Plt Count MPV Immature Gran % (Auto) Neut % (Auto) Lymph % (Auto) Hettinger % (Auto) Eos % (Auto) Baso % (Auto) Neut # (Auto) Lymph # (Auto) Hettinger # (Auto) Eos # (Auto) Baso # (Auto) Immature Gran # (Auto) Anisocytosis PT INR Sodium 154 H Potassium 3.8 Chloride 126 H Carbon Dioxide 19 L Anion Gap 9.0 BUN 100 H Creatinine 4.48 H Est Cr Clr Drug Dosing 18.5 Est GFR ( Amer) 14.8 Est GFR (Non-Af Amer) 12.7 BUN/Creatinine Ratio 22.4 H Glucose 122 H POC Glucose 129 H Calcium 8.5 Cortisol AM Sample Ur Random Sodium 49 Crossmatch 08/30/20 11:47 WBC RBC Hgb Hct MCV MCH MCHC RDW Std Deviation RDW Coeff of Kianna Plt Count MPV Immature Gran % (Auto) Neut % (Auto) Lymph % (Auto) Hettinger % (Auto) Eos % (Auto) Baso % (Auto) Neut # (Auto) Lymph # (Auto) Hettinger # (Auto) Eos # (Auto) Baso # (Auto) Immature Gran # (Auto) Anisocytosis PT INR Sodium Potassium Chloride Carbon Dioxide Anion Gap BUN Creatinine Est Cr Clr Drug Dosing Est GFR ( Amer) Est GFR (Non-Af Amer) BUN/Creatinine Ratio Glucose POC Glucose 118 H Calcium Cortisol AM Sample Ur Random Sodium Crossmatch PG Care Time/CCT Total # of Minutes Spent Total Time Spent with Patient: Total time spent is greater than 50% in coordination of care (as documented) at patient's floor/unit and/or counseling patient: Coding Level of Care Code 37855 Inpt Consult Level 4 Diagnoses Acute kidney injury N17.9 Chronic kidney disease N18.5 Chronic kidney disease stage: stage 5, not on chronic dialysis Acute hepatic encephalopathy K72.00 Liver cirrhosis K74.60 Hepatic cirrhosis type: unspecified hepatic cirrhosis Ascites presence: without ascites Bradycardia R00.1 Anemia, unspecified D64.9 Hypernatremia E87.0 (1) Chronic kidney disease Chronic kidney disease stage: stage 5, not on chronic dialysis Qualified Code(s): N18.5 - Chronic kidney disease, stage 5 (2) Liver cirrhosis Hepatic cirrhosis type: unspecified hepatic cirrhosis Ascites presence: without ascites Qualified Code(s): K74.60 - Unspecified cirrhosis of liver
[2020-08-30] MEDS ORDERED: EPOETIN ALFA 40,000 UNITS/ML VIAL SQ ONE (15:15)
--- NOTE | 2020-08-30 15:47 | Palliative Care Consultation ---
Date of Consultation August 30, 2020 Assessment & Plan (1) Palliative care encounter: Mr. Moreira is not capable of decision making at this time. We have had multiple goals of care discussions with him in the past as documented in previous notes. He has repeatedly refused interventions on past admissions and clearly has a poor prognosis with multiorgan failure. He has been DNR with comfort measures on return to [facility] on previous admissions. However, his mental status is variable with hepatic encephalopathy and he has reportedly been cogent enough at [facility] to request full care with CPR. I did reach out to Dr. Rm at [facility] who realizes that Mr. Moreira' prognosis is poor, however, he has stated that as long as the patient continues to request full care, he will be transferred to the hospital for care. They do have the ability to provide palliative care for him at the facility if he is agreeable. History of Present Illness Reason for Consultation: goals of care Requesting Physician: Dr. Pfeiffer Attending Physician: Pete Pfeiffer History of Present Illness 65 yo with end stage liver disease and hepatic encephalopathy, as well as end stage renal disease who has not been a candidate for dialysis due to his poor prognosis and limited ability to tolerate dialysis. He was minimally responsive at [facility] with hypothermia and bradycardia. He was transported to ER where he had respiratory and cardiac arrest for brief period of time. His mental status is variable with hepatic encephalopathy and currently he does arouse with stimulation but is not oriented to place or time. He has incoherent speech. Allergies Allergy/AdvReac Type Severity Reaction Status Date / Time No Known Drug Allergies Allergy NKDA Unverified 08/26/20 04:25 Home Medications Medication Instructions Recorded Confirmed Type lactulose 20 g PO TID PRN 06/28/20 08/26/20 History Novolin 70/30 U-100 Insulin 30 unit SUBCUT QAM 08/21/20 08/26/20 History Novolin R Regular U-100 Insuln 1 sliding scale dose SUBCUT 08/21/20 08/26/20 History USEASDIRECTD Xifaxan 550 mg PO BID 08/21/20 08/26/20 History bumetanide 1 mg PO DAILY 08/21/20 08/26/20 History levalbuterol tartrate [Xopenex HFA] 2 inh INHALATION QID 08/21/20 08/26/20 History nadolol 40 mg PO BID 08/21/20 08/26/20 History spironolactone 100 mg PO DAILY 08/21/20 08/26/20 History witch beulah-glycerin (hamamel) 1 pad TOPICAL TID PRN 08/21/20 08/26/20 History zinc oxide 1 applic TOPICAL BID 08/21/20 08/26/20 History Patient History Medical History Acute hepatic encephalopathy Acute kidney injury Allergic rhinitis Anemia, unspecified Chronic kidney disease, unspecified Confusion Esophageal varices without bleeding Flatulence GERD (gastroesophageal reflux disease) HCV (hepatitis C virus) Treated Hyperlipidemia Hypertension Liver cirrhosis Low back pain Metabolic acidosis Microscopic hematuria Onychomycosis Palliative care encounter Partial small bowel obstruction Proteinuria Pruritus, unspecified Type 2 diabetes mellitus Umbilical hernia without obstruction or gangrene Social History Smoking Status: Former smoker Second Hand Exposure: No; Hx Alcohol Use: No Hx Substance Use: No Preferred Language: Greek Communication Ability: Impaired Granite Installer Required: No Beliefs That Will Affect Care: None Current Living Situation: Legal Guardian and Other Current Living Situation Comment: DEEPIKA Braxton Feels Safe at Home: Yes Review of Systems Review of Systems: Unobtainable due to reduced consciousness [place] Symptom Assessment Scale PainAD 0/3 Palliative Performance Score 30% Physical Exam Constitutional: + lethargic; no acute distress Respiratory: normal respiratory effort; no labored breathing Gastrointestinal (Abdomen): Inspection/Auscultation: + abdomen distended Neurologic: moves all extremities Speech / Cognition: + abnormal speech and + abnormal cognition Results & Data ([facility]) Vital Signs (Past 12 Hours) Vital Signs Temp Pulse Pulse Resp BP BP Pulse Ox 08/30/20 15:17 97.5 F L 73 18 183/69 H 98 08/30/20 11:53 98.2 F 74 16 170/82 H 97 08/30/20 10:10 76 08/30/20 07:23 74 20 178/78 H 96 08/30/20 03:56 99.5 F 77 24 145/67 H 95 PG Care Time/CCT Total # of Minutes Spent Total Time Spent with Patient: Total time spent is greater than 50% in coordination of care (as documented) at patient's floor/unit and/or counseling patient: total time spent 50 minutes with more than 50% of time spent on goals of care and coordination of care. Coding Level of Care Code 11112 Inpt Consult Level 3 Diagnoses Palliative care encounter Z51.5
--- NOTE | 2020-08-30 22:40 | Hospitalist Progress Note ---
Date of Service August 30, 2020 Assessment & Plan (1) Acute hepatic encephalopathy: Due to cirrhosis. - Continue lactulose & rifaximin: however, patient is refusing this medication. - Monitor mental status -> appears somewhat drowsy today, unsure if just ignoring me if patient is trly becoming more lethargic. -Overall prognosis however is poor as patient has cirrhosis and ESRD. Cosnulted nephro and pa;lliative care. It appears patient is not a candidate for dialysis. (2) CKD (chronic kidney disease), stage IV: Baseline Cr ~3.0 - 4.0. - Avoid nephrotoxins - Finn - Cr appears to be worsening, not a candidate for HD given multiple comorbidit ies/ (3) Esophageal varices without bleeding: Prior notes indicate a hx of esophageal varices, but without any EGD in our system. - Hemoglobin was at baseline (8.7 on admission), then dropped to 6.7 on 08/27. Now stable. - Holding nadolol - Continue ceftriaxone x 7 day course. (4) Hypothermia: Secondary to infection/sepsis/metabolic encephalopathy/adrenal insuff. - Warming blanket - Treatment of underlying medical conditions - AM cortisol: normal. (5) Bradycardia: Sinus bradycardia. No EKG changes of ischemia. Troponin negative. - Hold nadolol (6) Liver cirrhosis: Due to HCV. will contiue to hold diuretics given kidney failure (7) Hypertension: Blood pressure higher today. - Hold nadolol - Restarted diuretics as above - Monitor (8) Type 2 diabetes mellitus: A1c was 5.4% in 06/2020. - Continue basal/bolus - Blood sugars have been 125-150 in the last 24 hours. - Glycemic pharmacy following (9) GERD (gastroesophageal reflux disease): Chronic. - Pepcid IV daily (10) DVT prophylaxis: Heparin presently via ICU team. Admission and Anticipated Discharge Date Admission Date: August 26, 2020 Subjective Patient is more lethargic today. Review of Systems Review of Systems: Unobtainable due to cognitive status Physical Exam Physical Exam: Constitutional: WD/WN, vitals as above + lethargic Eyes: EOM intact bilaterally; no conjunctival abnormality ENMT: external ear and nose normal, oropharynx normal Neck: trachea midline, no thyromegaly normal visual inspection Respiratory: normal respiratory effort, lungs clear to auscultation no r espiratory distress Cardiovascular: RRR, no murmur, no edema Gastrointestinal (Abdomen): Inspection/Auscultation: abdomen normal to inspection, + abdomen distended and normal bowel sounds Percussion/Palpation: abdomen soft; abdomen nontender, no guarding and abdomen not rigid Musculoskeletal: no cyanosis or clubbing, extremities motor strength 5/5 Skin: no rashes, warm and dry Neurologic: moves all extremities and awake Psychiatric: Orientation: alert, oriented to person and cooperative Results & Data Results & Data ([facility]) Vital Signs (Past 12 Hours) Vital Signs Temp Pulse Pulse Resp BP BP Pulse Ox 08/30/20 19:19 36.4 C L 71 18 180/85 H 97 08/30/20 15:17 36.4 C L 73 18 183/69 H 98 08/30/20 14:30 75 08/30/20 11:53 36.8 C 74 16 170/82 H 97 PG Care Time/CCT Total # of Minutes Spent Total Time Spent with Patient: Total time spent is greater than 50% in coordination of care (as documented) at patient's floor/unit and/or counseling patient: Coding Level of Care Code 63747 Subs Hosp Care Lvl 3 Diagnoses Acute hepatic encephalopathy K72.00 CKD (chronic kidney disease), stage IV N18.4 Esophageal varices without bleeding I85.00 Esophageal varices type: unspecified type Hypothermia T68.XXXA Encounter type: initial encounter Bradycardia R00.1 Liver cirrhosis K74.60 Ascites presence: without ascites Hepatic cirrhosis type: unspecified hepatic cirrhosis Hypertension I10 Hypertension type: essential hypertension Type 2 diabetes mellitus E11.9; Z79.4 Diabetes mellitus complication status: without complication Diabetes mellitus termite technician insulin use: with termite technician use GERD (gastroesophageal reflux disease) K21.9 Esophagitis presence: esophagitis presence not specified DVT prophylaxis Z29.9 (1) Type 2 diabetes mellitus Diabetes mellitus complication status: without complication Diabetes mellitus mcc insulin use: with mcc use Qualified Code(s): E11.9 - Type 2 diabetes mellitus without complications; Z79.4 - long term acute care registered nurse (current) use of insulin (2) Hypothermia Encounter type: initial encounter Qualified Code(s): T68.XXXA - Hypothermia, initial encounter (3) Liver cirrhosis Ascites presence: without ascites Hepatic cirrhosis type: unspecified hepatic cirrhosis Qualified Code(s): K74.60 - Unspecified cirrhosis of liver (4) GERD (gastroesophageal reflux disease) Esophagitis presence: esophagitis presence not specified Qualified Code(s): K21.9 - Gastro-esophageal reflux disease without esophagitis (5) Esophageal varices without bleeding Esophageal varices type: unspecified type Qualified Code(s): I85.00 - Esophageal varices without bleeding (6) Hypertension Hypertension type: essential hypertension Qualified Code(s): I10 - Essential (primary) hypertension
[2020-08-31 06:22] LABS: Hematocrit (blood only) 25.4 % (42-52); Mean Corpuscular Hemoglobin 32.4 pg (25-34); Mean Corpuscular Hgb Conc 31.5 g/dL (32-36); Mean Corpuscular Volume 102.8 fL (80-100); RDW Standard Deviation 75.4 fL (36.4-46.3); Red Blood Count 2.47 M/uL (4.7-6.1)
[2020-08-31 06:28] LABS: Mean Platelet Volume 10.2 fL (7.4-10.4); Platelet Count 50 K/uL (130-400)
[2020-08-31 06:48] LABS: Platelet Estimate Decreased (Normal)
[2020-08-31 06:57] LABS: Albumin Level 2.4 gm/dl (3.4-5.0); BUN Creatinine Ratio 20.6 (10-20); Creatinine Clr Calc Pharmacy 19.1 ml/min; Est GFR (African American) 15.2; Est GFR (Non-African American) 13.1; Potassium 3.6 mmol/L (3.5-5.1)
[2020-08-31 07:00] LABS: Albumin Globulin Ratio 0.6 (0.9-2); Bilirubin,Total 0.8 mg/dl (0.2-1); Ferritin 169.2 ng/ml (8-388); Globulin 4.3 gm/dl (2.5-4.0); Total Protein 6.7 gm/dl (6.4-8.2)
[2020-08-31] MEDS: INSULIN ASPART 100 UNITS/ML 3 ML PEN SC SCH ×4 (08:12→21:59)
[2020-08-31] MEDS: INSULIN GLARGINE SOLOSTAR 100 UNITS/ML 3 ML PEN SC SCH (08:12)
[2020-08-31] MEDS: HEPARIN SOD 5,000 UNIT/0.5 ML VIAL SQ SCH ×2 (08:13→21:55)
[2020-08-31] MEDS: LACTULOSE SYRUP 30 GM/45 ML UDP PO SCH ×3 (08:14→21:55)
[2020-08-31] MEDS: rifAXIMin 550 MG TABLET PO SCH ×2 (08:14→21:57)
[2020-08-31] MEDS: FAMOTIDINE 20 MG in SYRINGE 3 ML IV SCH (08:14)
--- NOTE | 2020-08-31 10:04 | Nephrology Progress Note ---
Date of Service August 31, 2020 Assessment & Plan (1) Acute kidney injury: * REDD due to dehydration. Patient is clinically volume contracted. Serum sodium is elevated. Calculated FWD is 6 L. Creatinine is trending down w/ IV hydration * Continue IV hydration and NaHCO3 supplementation * No acute indication for HD. Patient is responding to conservative management (2) Chronic kidney disease: * Baseline Cr 3.0 * Poor chronic dialysis candidate since patient is nonadherent with ammonia therapy resulting in dehydration, REDD and recurrent hospitalization. Review of EMR shows that he was previously evaluated for liver transplant and deemed not to be a candidate (3) Hypernatremia: * Calculated FWD ~ 6 L. Will provide IV hydration as outlined above (4) Acute hepatic encephalopathy: * RN notes this am show that patient did not take his 9 am scheduled doses of Rifaximin or Lactulose * Will order follow up NH3 level for am (5) Liver cirrhosis: * Recurrent hospitalization for hepatic encephalopathy complicated by dehydration and REDD. Patient has been nonadherent with Rifaximin and Lactulose therapy. Recommend Palliative Care evaluation. Need organized plan of care w/ care home system to provide management plan that patient will maintain, transplantation or comfort measures. Short term prognosis appears poor (6) Anemia, unspecified: * Stable. Epogen 68024 units IV provided 08/30/20 * Blood cultures are NGTD * Iron saturation 34%, Ferritin 169. No acute indication for IV iron Admission and Anticipated Discharge Date Admission Date: August 26, 2020 Subjective Mr. Moreira was seen & examined in his hospital room this morning. He is awake but not oriented. He does not follow commands. RN notes indicate that patient did not take scheduled 9 am doses of Rifaximin or Lactulose Review of Systems Review of Systems: Unobtainable due to cognitive status Physical Exam Constitutional: + ill appearing and + lethargic Eyes: no scleral abnormality and no corneal abnormality ENMT: Mouth: + dry oral mucous membranes; no oral mucosal abnormality Neck: normal visual inspection and trachea midline Respiratory: normal respiratory effort Auscultation: lungs clear to auscult ation bilaterally Cardiovascular: Rate/Rhythm: regular rate Heart Sounds: normal S1 and normal S2 Extremities: no edema (poor skin turgor) Gastrointestinal (Abdomen): Percussion/Palpation: abdomen soft; abdomen nontender Neurologic: + confused Speech / Cognition: + abnormal speech (slurred speech) Genitourinary: Finn draining yellow urine Results & Data ([facility]) Vital Signs (Past 12 Hours) Vital Signs Temp Pulse Pulse Resp BP BP Pulse Ox 08/31/20 09:09 79 08/31/20 08:27 36.8 C 80 18 186/75 H 97 08/31/20 03:19 36.9 C 82 18 168/68 H 94 08/31/20 02:28 36.3 C L 08/31/20 02:07 36.3 C L 78 08/31/20 01:33 36.2 C L 08/31/20 00:57 36.2 C L 08/31/20 00:56 36.2 C L 08/31/20 00:34 35.9 C L 08/31/20 00:12 36.1 C L 08/30/20 23:31 35.6 C L 70 18 185/79 H 97 Laboratory Tests 08/26/20 08/31/20 08/31/20 04:05 06:05 06:05 WBC 4.70 L Hgb 8.0 L Hct 25.4 L Plt Count 50 L Sodium 153 H Potassium 3.6 Chloride 126 H Carbon Dioxide 20 L BUN 90 H Creatinine 4.37 H Glucose 134 H Calcium 8.0 L Transferrin 174 L Transferrin % Sat 34 Ferritin 169.2 AST 24 ALT 21 Alkaline Phosphatase 102 Ammonia 98.0 H Albumin 2.4 L PG Care Time/CCT Total # of Minutes Spent Total Time Spent with Patient: Total time spent is greater than 50% in coordination of care (as documented) at patient's floor/unit and/or counseling patient: Coding Level of Care Code 57442 Subseq Hosp Care Lvl 3 Diagnoses Acute kidney injury N17.9 Chronic kidney disease N18.5 Chronic kidney disease stage: stage 5, not on chronic dialysis Hypernatremia E87.0 Acute hepatic encephalopathy K72.00 Liver cirrhosis K74.60 Hepatic cirrhosis type: unspecified hepatic cirrhosis Ascites presence: without ascites Anemia, unspecified D64.9 (1) Chronic kidney disease Chronic kidney disease stage: stage 5, not on chronic dialysis Qualified Code(s): N18.5 - Chronic kidney disease, stage 5 (2) Liver cirrhosis Hepatic cirrhosis type: unspecified hepatic cirrhosis Ascites presence: without ascites Qualified Code(s): K74.60 - Unspecified cirrhosis of liver
[2020-08-31] MEDS: cefTRIAXone SODIUM 2,000 MG in DEXTROSE 5% 50 ML IV SCH (10:20)
[2020-08-31] MEDS: SODIUM BICARBONATE 8.4% 75 MEQ in DEXTROSE 5% 1,000 ML IV SCH ×2 (10:59→21:28)
[2020-08-31] MEDS: THIAMINE HCL 100 MG in SYRINGE 9 ML IV SCH (11:20)
--- NOTE | 2020-08-31 22:50 | Hospitalist Progress Note ---
Date of Service August 31, 2020 Assessment & Plan (1) Acute hepatic encephalopathy: Due to cirrhosis. - Continue lactulose & rifaximin: however, patient is refusing this medication for past 2-3 days. - Monitor mental status -> Patient appears less drowsy today -Overall prognosis however is poor as patient has cirrhosis and ESRD. Consulted nephro and palliative care. It appears patient is not a candidate for dialysis. (2) CKD (chronic kidney disease), stage IV: Baseline Cr ~3.0 - 4.0. - Avoid nephrotoxins - Finn -Patient also having acute kidney failure -creatinine is mildly improving after holding diuretics. will continue to monitor. (3) Esophageal varices without bleeding: Prior notes indicate a hx of esophageal varices, but without any EGD in our system. - Hemoglobin was at baseline (8.7 on admission), then dropped to 6.7 on 08/27. Now stable. - Holding nadolol - Continue ceftriaxone x 7 day course. (4) Hypothermia: Secondary to infection/sepsis/metabolic encephalopathy/adrenal insuff. - Warming blanket - Treatment of underlying medical conditions - AM cortisol: normal. (5) Bradycardia: Sinus bradycardia. No EKG changes of ischemia. Troponin negative. - Hold nadolol (6) Liver cirrhosis: Due to HCV. will contiue to hold diuretics given kidney failure (7) Hypertension: Blood pressure higher today. - Hold nadolol - Restarted diuretics as above - Monitor (8) Type 2 diabetes mellitus: A1c was 5.4% in 06/2020. - Continue basal/bolus - Blood sugars have been 125-150 in the last 24 hours. - Glycemic pharmacy following (9) GERD (gastroesophageal reflux disease): Chronic. - Pepcid IV daily (10) DVT prophylaxis: Heparin presently via ICU team. Admission and Anticipated Discharge Date Admission Date: August 26, 2020 Subjective Patient is more awake today. He has no complaints. Review of Systems Review of Systems: All systems reviewed & are unremarkable except as noted in HPI & below Physical Exam Physical Exam: Constitutional: WD/WN, vitals as above awake, alert Eyes: EOM intact bilaterally; no conjunctival abnormality ENMT: external ear and nose normal, oropharynx normal Neck: trachea midline, no thyromegaly normal visual inspection Respiratory: normal respiratory effort, lungs clear to auscultation no respiratory distress Cardiovascular: RRR, no murmur, no edema Gastrointestinal (Abdomen): Inspection/Auscultation: abdomen normal to inspection, + abdomen distended and normal bowel sounds Percussion/Palpation: abdomen soft; abdomen nontender, no guarding and abdomen not rigid Musculoskeletal: no cyanosis or clubbing, extremities motor strength 5/5 Skin: no rashes, warm and dry Neurologic: moves all extremities and awake Psychiatric: Orientation: alert, oriented to person and cooperative Results & Data Results & Data ([facility]) Vital Signs (Past 12 Hours) Vital Signs Temp Pulse Pulse Resp BP Pulse Ox 08/31/20 19:32 36.6 C 75 19 170/91 H 97 08/31/20 15:12 76 08/31/20 14:56 36.6 C 65 18 152/88 H 98 PG Care Time/CCT Total # of Minutes Spent Total Time Spent with Patient: Total time spent is greater than 50% in coordination of care (as documented) at patient's floor/unit and/or counseling patient: Coding Level of Care Code 12489 Subseq Hosp Care Lvl 2 Diagnoses Acute hepatic encephalopathy K72.00 CKD (chronic kidney disease), stage IV N18.4 Esophageal varices without bleeding I85.00 Esophageal varices type: unspecified type Hypothermia T68.XXXA Encounter type: initial encounter Bradycardia R00.1 Liver cirrhosis K74.60 Ascites presence: without ascites Hepatic cirrhosis type: unspecified hepatic cirrhosis Hypertension I10 Hypertension type: essential hypertension Type 2 diabetes mellitus E11.9; Z79.4 Diabetes mellitus complication status: without complication Diabetes mellitus intermediate teacher insulin use: with intermediate teacher use GERD (gastroesophageal reflux disease) K21.9 Esophagitis presence: esophagitis presence not specified DVT prophylaxis Z29.9 (1) Type 2 diabetes mellitus Diabetes mellitus complication status: without complication Diabetes mellitus intermediate teacher insulin use: with intermediate teacher use Qualified Code(s): E11.9 - Type 2 diabetes mellitus without complications; Z79.4 - [facility] (current) use of insulin (2) Hypothermia Encounter type: initial encounter Qualified Code(s): T68.XXXA - Hypothermia, initial encounter (3) Liver cirrhosis Ascites presence: without ascites Hepatic cirrhosis type: unspecified hepatic cirrhosis Qualified Code(s): K74.60 - Unspecified cirrhosis of liver (4) GERD (gastroesophageal reflux disease) Esophagitis presence: esophagitis presence not specified Qualified Code(s): K21.9 - Gastro-esophageal reflux disease without esophagitis (5) Esophageal varices without bleeding Esophageal varices type: unspecified type Qualified Code(s): I85.00 - Esophageal varices without bleeding (6) Hypertension Hypertension type: essential hypertension Qualified Code(s): I10 - Essential (primary) hypertension
[2020-09-01] MEDS ORDERED: nadoloL 40 MG TAB PO ONE (01:08)
[2020-09-01] MEDS: rifAXIMin 550 MG TABLET PO SCH ×2 (07:53→20:50)
[2020-09-01] MEDS: HEPARIN SOD 5,000 UNIT/0.5 ML VIAL SQ SCH ×2 (07:55→20:48)
[2020-09-01] MEDS: LACTULOSE SYRUP 30 GM/45 ML UDP PO SCH ×3 (08:00→20:48)
[2020-09-01 08:04] LABS: Hematocrit (blood only) 24.8 % (42-52); Hemoglobin 7.8 g/dL (14.0-18.0); Mean Corpuscular Hemoglobin 32.5 pg (25-34); Mean Corpuscular Hgb Conc 31.5 g/dL (32-36); Mean Corpuscular Volume 103.3 fL (80-100); RDW Coefficient of Variation 19.7 % (11.5-14.5); RDW Standard Deviation 73.4 fL (36.4-46.3); White Blood Count 4.49 K/uL (4.8-10.8)
[2020-09-01 08:27] LABS: Mean Platelet Volume 11.4 fL (7.4-10.4); Platelet Count 42 K/uL (130-400); Platelet Estimate Decreased (Normal)
[2020-09-01 08:29] LABS: Albumin Level 2.2 gm/dl (3.4-5.0); Calcium 8.1 mg/dl (8.5-10.1); Creatinine Clr Calc Pharmacy 21.3 ml/min; Est GFR (African American) 17.4; Potassium 3.5 mmol/L (3.5-5.1)
[2020-09-01 08:32] LABS: Albumin Globulin Ratio 0.5 (0.9-2); Bilirubin,Total 0.8 mg/dl (0.2-1); Total Protein 6.2 gm/dl (6.4-8.2)
[2020-09-01] MEDS: FAMOTIDINE 20 MG in SYRINGE 3 ML IV SCH (10:03)
[2020-09-01] MEDS: cefTRIAXone SODIUM 2,000 MG in DEXTROSE 5% 50 ML IV SCH (10:07)
[2020-09-01] MEDS: INSULIN ASPART 100 UNITS/ML 3 ML PEN SC SCH ×4 (10:28→21:09)
--- NOTE | 2020-09-01 10:54 | Nephrology Progress Note ---
Date of Service September 01, 2020 Assessment & Plan (1) Acute kidney injury: * REDD due to dehydration. Patient is clinically volume contracted. Serum sodium is elevated. Calculated FWD is 6 L. Creatinine is trending down w/ IV hydration * Continue IV hydration * Metabolic acidosis has corrected. Will stop NaHCO3 supplementation * No acute indication for HD. Patient is responding to conservative management (2) Chronic kidney disease: * Baseline Cr 3.0 * Poor chronic dialysis candidate since patient is nonadherent with ammonia therapy resulting in dehydration, REDD and recurrent hospitalization. Review of EMR shows that he was previously evaluated for liver transplant and deemed not to be a candidate (3) Hypernatremia: * Change IVF to 0.45NS (4) Acute hepatic encephalopathy: * RN notes this am show that patient is not taking his Lactulose. He did take his scheduled dose of Rifaximin this morning (5) Liver cirrhosis: * Recurrent hospitalization for hepatic encephalopathy complicated by dehydration and REDD. Patient has been nonadherent with Rifaximin and Lactulose therapy. Need organized plan of care w/ [facility] - ensure patient takes medications as prescribed, refer for transplantation or pursue comfort measures. Short term prognosis appears poor (6) Anemia, unspecified: * Stable. Epogen 41532 units IV provided 08/30/20 * Blood cultures are NGTD * Iron saturation 34%, Ferritin 169. No acute indication for IV iron Admission and Anticipated Discharge Date Admission Date: August 26, 2020 Subjective Mr. Moreira was seen & examined in his hospital room this morning. He is awake but not oriented. He does not follow commands. RN notes indicate that patient has not been taking Lactulose. He refused Rifaximin yesterday but took his scheduled dose this morning Review of Systems Review of Systems: Unobtainable due to cognitive status Physical Exam Constitutional: + ill appearing and + lethargic Respiratory: Auscultation: lungs clear to auscultation bilaterally Cardiovascular: Extremities: no edema (poor skin turgor) Neurologic: + confused Speech / Cognition: + abnormal speech (slurred speech) Results & Data ([facility]) Vital Signs (Past 12 Hours) Vital Signs Temp Pulse Pulse Resp BP BP Pulse Ox 09/01/20 08:09 36.9 C 73 18 161/81 H 97 09/01/20 07:10 76 09/01/20 04:24 36.5 C 74 18 175/83 H 98 09/01/20 02:01 86 170/86 H 09/01/20 01:30 78 08/31/20 23:00 36.6 C 74 18 185/81 H 98 Laboratory Tests 09/01/20 09/01/20 09/01/20 07:53 07:53 07:53 WBC 4.49 L Hgb 7.8 L Hct 24.8 L Plt Count 42 L Sodium 154 H Potassium 3.5 Chloride 123 H Carbon Dioxide 23 BUN 78 H Creatinine 3.91 H D Ammonia 14.1 PG Care Time/CCT Total # of Minutes Spent Total Time Spent with Patient: Total time spent is greater than 50% in coordination of care (as documented) at patient's floor/unit and/or counseling patient: Coding Level of Care Code 82393 Subseq Hosp Care Lvl 3 Diagnoses Acute kidney injury N17.9 Chronic kidney disease N18.5 Chronic kidney disease stage: stage 5, not on chronic dialysis Hypernatremia E87.0 Acute hepatic encephalopathy K72.00 Liver cirrhosis K74.60 Hepatic cirrhosis type: unspecified hepatic cirrhosis Ascites presence: without ascites Anemia, unspecified D64.9 (1) Chronic kidney disease Chronic kidney disease stage: stage 5, not on chronic dialysis Qualified Code(s): N18.5 - Chronic kidney disease, stage 5 (2) Liver cirrhosis Hepatic cirrhosis type: unspecified hepatic cirrhosis Ascites presence: without ascites Qualified Code(s): K74.60 - Unspecified cirrhosis of liver
[2020-09-01] MEDS: SODIUM CHLORIDE 0.45 % 1,000 ML IV SCH ×2 (10:56→22:55)
[2020-09-01] MEDS: THIAMINE HCL 100 MG in SYRINGE 9 ML IV SCH (12:57)
--- NOTE | 2020-09-01 15:08 | Pharmacy Report ---
Pharmacy Glycemic Sign Off Nt - Date of Service September 01, 2020 - Assessment & Plan ASSESSMENT: * Pharmacy was consulted by Dr Kuhn on 08/26/20 for glycemic control and to write orders per [facility] inpatient glycemic control protocol. * Major changes made by pharmacy to antidiabetic regimen include: * Changing outpaitent pre-mixed insulin to SQ basal bolus insulin regimen with Lantus + NovoLog * Patient has been receiving/requiring ~20 units of insulin per day for adequate glycemic control * BSGs ranging 136-164 mg/dl * Regimen has only required minor adjustments over the past 48hrs to achieve this level of control * Do not anticipate further changes in patient status that would quickly deteriorate glycemic control (i.e. patient to be NPO for upcoming procedure, steroids tapering, starting tube feedings, etc). * Please see recommendations for outpatient antidiabetic regimen below. PLAN FOR INPATIENT GLYCEMIC CONTROL: No changes needed to current regimen. Pt tends to decline dosing based on how much he is eating therefore regimen is self-adjusting. * Continue basal insulin with Lantus 5 units SQ QAM * Continue NovoLog per scale ACHS/Q6hrs while NPO * Goal range = 110 140 mg/dl * CF = 20 mg/dl/unit * CR = 1 unit for ever 7 g CHO consumed * Pharmacy is signing off of glycemic consult and will no longer be making adjustments to inpatient regimen. Please feel free to re-consult if needed. Thank you. DISCHARGE RECOMMENDATIONS: * A1c 5.4 % on 07/22/20 * However, this result is likely somewhat unreliable in CKD patients * Recommend decreasing outpatient dosing of insulin if patient is experiencing hypoglycemia.
[2020-09-01] MEDS: SODIUM BICARBONATE 8.4% 75 MEQ in DEXTROSE 5% 1,000 ML IV SCH (15:32)
--- NOTE | 2020-09-01 21:56 | Hospitalist Progress Note ---
Date of Service September 01, 2020 Assessment & Plan (1) Acute hepatic encephalopathy: Due to cirrhosis. - Continue lactulose & rifaximin: however, patient is refusing this medication for past 2-3 days. - Monitor mental status -> Patient appears less drowsy today -Overall prognosis however is poor as patient has cirrhosis and ESRD. Consulted nephro and palliative care. It appears patient is not a candidate for dialysis. Patient has been intermittently confused over past 48 hours. Will need to discuss with palliative care as to next step in process as patient has poor prognosis and the group home is having difficulty managing the patient. (2) CKD (chronic kidney disease), stage IV: Baseline Cr ~3.0 - 4.0. - Avoid nephrotoxins - Finn -Patient also having acute kidney failure -creatinine is improving. will continue to monitor. (3) Esophageal varices without bleeding: Prior notes indicate a hx of esophageal varices, but without any EGD in our system. - Hemoglobin was at baseline (8.7 on admission), then dropped to 6.7 on 08/27. Now stable. - Holding nadolol - Continue ceftriaxone x 7 day course. (4) Hypothermia: Secondary to infection/sepsis/metabolic encephalopathy/adrenal insuff. - Warming blanket - Treatment of underlying medical conditions - AM cortisol: normal. (5) Bradycardia: Sinus bradycardia. No EKG changes of ischemia. Troponin negative. - Hold nadolol (6) Liver cirrhosis: Due to HCV. will contiue to hold diuretics given kidney failure (7) Hypertension: Blood pressure higher today. - Hold nadolol - Restarted diuretics as above - Monitor (8) Type 2 diabetes mellitus: A1c was 5.4% in 06/2020. - Continue basal/bolus - Blood sugars have been 125-150 in the last 24 hours. - Glycemic pharmacy following (9) GERD (gastroesophageal reflux disease): Chronic. - Pepcid IV daily (10) DVT prophylaxis: Heparin presently via ICU team. Admission and Anticipated Discharge Date Admission Date: August 26, 2020 Subjective Patient appears confused today Review of Systems Review of Systems: Unobtainable due to cognitive status Physical Exam Physical Exam: Constitutional: WD/WN, vitals as above awake, alert Eyes: EOM intact bilaterally; no conjunctival abnormality ENMT: external ear and nose normal, oropharynx normal Neck: trachea midline, no thyromegaly normal visual inspection Respiratory: normal respiratory effort, lungs clear to auscultation no respiratory distress Cardiovascular: RRR, no murmur, no edema Gastrointestinal (Abdomen): Inspection/Auscultation: abdomen normal to inspection, + abdomen distended and normal bowel sounds Percussion/Palpation: abdomen soft; abdomen nontender, no guarding and abdomen not rigid Musculoskeletal: no cyanosis or clubbing, extremities motor strength 5/5 Skin: no rashes, warm and dry Neurologic: moves all extremities and awake Psychiatric: Orientation: alert, oriented to person and cooperative Results & Data Results & Data ([facility]) Vital Signs (Past 12 Hours) Vital Signs Temp Pulse Pulse Resp BP BP Pulse Ox 09/01/20 20:31 36.4 C L 63 16 160/82 H 97 09/01/20 16:27 171/81 H 09/01/20 15:26 76 09/01/20 14:48 36.3 C L 68 18 183/90 H 98 09/01/20 11:41 36.2 C L 70 16 175/89 H 96 PG Care Time/CCT Total # of Minutes Spent Total Time Spent with Patient: Total time spent is greater than 50% in coordination of care (as documented) at patient's floor/unit and/or counseling patient: Coding Level of Care Code 27038 Subseq Hosp Care Lvl 3 Diagnoses Acute hepatic encephalopathy K72.00 CKD (chronic kidney disease), stage IV N18.4 Esophageal varices without bleeding I85.00 Esophageal varices type: unspecified type Hypothermia T68.XXXA Encounter type: initial encounter Bradycardia R00.1 Liver cirrhosis K74.60 Ascites presence: without ascites Hepatic cirrhosis type: unspecified hepatic cirrhosis Hypertension I10 Hypertension type: essential hypertension Type 2 diabetes mellitus E11.9; Z79.4 Diabetes mellitus complication status: without complication Diabetes mellitus jail insulin use: with jail use GERD (gastroesophageal reflux disease) K21.9 Esophagitis presence: esophagitis presence not specified DVT prophylaxis Z29.9 (1) Type 2 diabetes mellitus Diabetes mellitus complication status: without complication Diabetes mellitus jail insulin use: with intermediate project manager use Qualified Code(s): E11.9 - Type 2 diabetes mellitus without complications; Z79.4 - jail (current) use of insulin (2) Hypothermia Encounter type: initial encounter Qualified Code(s): T68.XXXA - Hypothermia, initial encounter (3) Liver cirrhosis Ascites presence: without ascites Hepatic cirrhosis type: unspecified hepatic cirrhosis Qualified Code(s): K74.60 - Unspecified cirrhosis of liver (4) GERD (gastroesophageal reflux disease) Esophagitis presence: esophagitis presence not specified Qualified Code(s): K21.9 - Gastro-esophageal reflux disease without esophagitis (5) Esophageal varices without bleeding Esophageal varices type: unspecified type Qualified Code(s): I85.00 - Esophageal varices without bleeding (6) Hypertension Hypertension type: essential hypertension Qualified Code(s): I10 - Essential (primary) hypertension
[2020-09-02] MEDS: HEPARIN SOD 5,000 UNIT/0.5 ML VIAL SQ SCH ×2 (08:19→20:25)
[2020-09-02] MEDS: rifAXIMin 550 MG TABLET PO SCH ×2 (08:20→20:25)
[2020-09-02] MEDS: FAMOTIDINE 20 MG in SYRINGE 3 ML IV SCH (08:20)
[2020-09-02] MEDS: INSULIN ASPART 100 UNITS/ML 3 ML PEN SC SCH ×4 (08:22→21:01)
[2020-09-02] MEDS: INSULIN GLARGINE SOLOSTAR 100 UNITS/ML 3 ML PEN SC SCH (08:22)
[2020-09-02] MEDS: LACTULOSE SYRUP 30 GM/45 ML UDP PO SCH ×3 (08:22→20:25)
[2020-09-02 09:41] LABS: Hemoglobin 8.2 g/dL (14.0-18.0); Mean Corpuscular Hemoglobin 32.8 pg (25-34); Mean Corpuscular Hgb Conc 31.5 g/dL (32-36); RDW Coefficient of Variation 19.8 % (11.5-14.5); RDW Standard Deviation 74.9 fL (36.4-46.3); White Blood Count 5.07 K/uL (4.8-10.8)
[2020-09-02 09:44] LABS: Mean Platelet Volume 11.4 fL (7.4-10.4); Platelet Count 39 K/uL (130-400)
[2020-09-02 10:14] LABS: BUN Creatinine Ratio 18.5 (10-20); Calcium 8.1 mg/dl (8.5-10.1); Creatinine Clr Calc Pharmacy 24.2 ml/min; Est GFR (African American) 20.4; Est GFR (Non-African American) 17.6; Potassium 3.5 mmol/L (3.5-5.1)
--- NOTE | 2020-09-02 10:54 | Palliative Care Progress Note ---
Date of Service September 02, 2020 Assessment & Plan (1) Palliative care encounter: Mr. Moreira was awake, and able to answer simple questions, albeit garbled and muffled. Despite him being able to converse, we continue to feel that Mr. Moreira is not capable of decision making. We have had multiple goals of care discussions with him in the past as documented in previous notes. I did ask Mr. Moreira if he was scared of dying and he said "no, its time when its time". He has repeatedly refused interventions on past admissions and clearly has a poor prognosis with multiorgan failure. He has been DNR with comfort measures on return to [facility] on previous admissions. However, his mental status is variable with hepatic encephalopathy and he has reportedly been cogent enough at [facility] [place] to request full care with CPR. Palliative care did reach out to Dr. Rm at [facility] [place] who realizes that Mr. Moreira' prognosis is poor, however, he has stated that as long as the patient continues to request full care, he will be transferred to the hospital for care. They do have the ability to provide palliative care for him at the facility if he is agreeable. I did discuss this case with Director of Case Management Paula Stringer and stated that while the patient is able to have a conversation, he certainly does not have decision making capacity to understand the complexity of his chronic illness. . Siomara stated that she would discuss further logistical management of the patient with the group home system. Palliative care will follow as necessary. Admission and Anticipated Discharge Date Admission Date: August 26, 2020 Subjective Patient continues to be confused, but is able to converse and hold some minimal conversation. Review of Systems Review of Systems: [place] Symptom Assessment Scale Pain 0/3 Shortness of Breath: 0/3 Anxiety: 0/3 Palliative Performance Score 30% Physical Exam Constitutional: + lethargic; no acute distress Respiratory: normal respiratory effort; no labored breathing Neurologic: moves all extremities Speech / Cognition: + abnormal speech and + abnormal cognition Results & Data ([facility]) Vital Signs (Past 12 Hours) Vital Signs Temp Pulse Pulse Resp BP BP Pulse Ox 09/02/20 07:22 75 09/02/20 07:20 36.9 C 77 18 184/82 H 96 09/02/20 03:31 36.4 C L 70 16 170/88 H 95 09/01/20 23:52 75 09/01/20 23:21 36.4 C L 68 14 174/94 H 96 PG Care Time/CCT Total # of Minutes Spent Total Time Spent with Patient: Total time spent is greater than 50% in coordination of care (as documented) at patient's floor/unit and/or counseling patient: 35 Coding Level of Care Code 09329 Subseq Hosp Care Lvl 3 Diagnoses Palliative care encounter Z51.5 Time Spent (min) 35 Time Spent Midlevel Total time spent 35 minutes with > 50% of that time spent assessing the patient, discussing goals of care with IDT
--- NOTE | 2020-09-02 10:59 | Nephrology Progress Note ---
Date of Service September 02, 2020 Assessment & Plan (1) Acute kidney injury: * REDD due to dehydration. Patient is in recovery phase * 3rd spacing fluid due to hypoalbuminemia. Will hold IVF and encourage oral hydration * No acute indication for HD. Patient is responding to conservative management (2) Chronic kidney disease: * Baseline Cr 3.0 * Poor chronic dialysis candidate since patient is nonadherent with ammonia therapy resulting in dehydration, REDD and recurrent hospitalization. Review of EMR shows that he was previously evaluated for liver transplant and deemed not to be a candidate (3) Hypernatremia: * Encourage oral hydration and monitor serum sodium (4) Acute hepatic encephalopathy: * RN notes this am show that patient has been taking Rifaximin but refusing Lactulose (5) Liver cirrhosis: * Recurrent hospitalization for hepatic encephalopathy complicated by dehydration and REDD. Patient has been nonadherent with Rifaximin and Lactulose therapy. Need organized plan of care w/ penitentiary system - ensure patient takes medications as prescribed, refer for transplantation (if a candidate) or pursue comfort measures. Short term prognosis remains poor (6) Anemia, unspecified: * Hgb now trending up * Iron saturation 34%, Ferritin 169. No acute indication for IV iron * Will redose epogen today Admission and Anticipated Discharge Date Admission Date: August 26, 2020 Subjective Mr. Moreira was seen & examined in his hospital room this morning. He is more alert this am and oriented to self and place. Mr. Moreira denies dyspnea or uremic symptoms. Finn catheter remains in place draining clear yellow urine Review of Systems Constitutional: no fever Eyes: no problem reported Ear, Nose, Mouth, Throat: no problem reported Respiratory: no dyspnea Cardiovascular: + edema; no chest pain Gastrointestinal: no abdominal pain, no vomiting and no diarrhea/loose stools Musculoskeletal: no back pain Neurologic: no dizziness Physical Exam 2 Constitutional: + ill appearing and + lethargic Respiratory: Auscultation: lungs clear to auscultation bilaterally Cardiovascular: Extremities: no edema (poor skin turgor) Neurologic: + confused Speech / Cognition: + abnormal speech (slurred speech) Results & Data ([facility]) Vital Signs (Past 12 Hours) Vital Signs Temp Pulse Pulse Resp BP BP Pulse Ox 09/02/20 07:22 75 09/02/20 07:20 36.9 C 77 18 184/82 H 96 09/02/20 03:31 36.4 C L 70 16 170/88 H 95 09/01/20 23:52 75 09/01/20 23:21 36.4 C L 68 14 174/94 H 96 Laboratory Tests 09/01/20 07:53 Sodium 154 H Potassium 3.5 Chloride 123 H Carbon Dioxide 23 BUN 78 H Creatinine 3.91 H D Glucose 152 H PG Care Time/CCT Total # of Minutes Spent Total Time Spent with Patient: Total time spent is greater than 50% in coordination of care (as documented) at patient's floor/unit and/or counseling patient: Coding Level of Care Code 62687 Subseq Hosp Care Lvl 3 Diagnoses Acute kidney injury N17.9 Chronic kidney disease N18.5 Chronic kidney disease stage: stage 5, not on chronic dialysis Hypernatremia E87.0 Acute hepatic encephalopathy K72.00 Liver cirrhosis K74.60 Hepatic cirrhosis type: unspecified hepatic cirrhosis Ascites presence: without ascites Anemia, unspecified D64.9 (1) Chronic kidney disease Chronic kidney disease stage: stage 5, not on chronic dialysis Qualified Code(s): N18.5 - Chronic kidney disease, stage 5 (2) Liver cirrhosis Hepatic cirrhosis type: unspecified hepatic cirrhosis Ascites presence: without ascites Qualified Code(s): K74.60 - Unspecified cirrhosis of liver
[2020-09-02] MEDS ORDERED: EPOETIN ALFA 10,000 UNITS/ML VIAL SQ ONE (11:00)
[2020-09-02] MEDS: THIAMINE HCL 100 MG in SYRINGE 9 ML IV SCH (11:30)
--- NOTE | 2020-09-02 22:52 | Hospitalist Progress Note ---
Date of Service September 02, 2020 Assessment & Plan (1) Acute hepatic encephalopathy: Due to cirrhosis. - Continue lactulose & rifaximin: however, patient is refusing lactulose, however he is having 2-3 BMs today. - Monitor mental status -> Patient appears less drowsy today -Overall prognosis however is poor as patient has cirrhosis and ESRD. Consulted nephro and palliative care. It appears patient is not a candidate for dialysis. Patient has been intermittently confused over past 72 hours. Palliative discussing with Kaylin Stringer to discuss dispo with half-way system given poor prognosis; Patient is a candidate for hospice. (2) CKD (chronic kidney disease), stage IV: Baseline Cr ~3.0 - 4.0. - Avoid nephrotoxins - Finn -Patient also having acute kidney failure -creatinine is improving: at baseline. creat is 3.4 will continue to monitor. (3) Esophageal varices without bleeding: Prior notes indicate a hx of esophageal varices, but without any EGD in our system. - Hemoglobin was at baseline (8.7 on admission), then dropped to 6.7 on 08/27. Now stable. - Holding nadolol - Continue ceftriaxone x 7 day course. (4) Hypothermia: Secondary to infection/sepsis/metabolic encephalopathy/adrenal insuff. - Warming blanket - Treatment of underlying medical conditions - AM cortisol: normal. (5) Bradycardia: Sinus bradycardia. No EKG changes of ischemia. Troponin negative. - Hold nadolol (6) Liver cirrhosis: Due to HCV. will contiue to hold diuretics given kidney failure (7) Hypertension: Blood pressure higher today. - Hold nadolol - Restarted diuretics as above - Monitor (8) Type 2 diabetes mellitus: A1c was 5.4% in 06/2020. - Continue basal/bolus - Blood sugars have been 125-150 in the last 24 hours. - Glycemic pharmacy following (9) GERD (gastroesophageal reflux disease): Chronic. - Pepcid IV daily (10) DVT prophylaxis: Heparin presently via ICU team. Admission and Anticipated Discharge Date Admission Date: August 26, 2020 Subjective Patient is awake, but has garbled speech. Review of Systems Review of Systems: Unobtainable due to cognitive status Physical Exam Physical Exam: Constitutional: WD/WN, vitals as above awake, alert Eyes: EOM intact bilaterally; no conjunctival abnormality ENMT: external ear and nose normal, oropharynx normal Neck: trachea midline, no thyromegaly normal visual inspection Respiratory: normal respiratory effort, lungs clear to auscultation no respiratory distress Cardiovascular: RRR, no murmur, no edema Gastrointestinal (Abdomen): Inspection/Auscultation: abdomen normal to inspection, + abdomen distended and normal bowel sounds Percussion/Palpation: abdomen soft; abdomen nontender, no guarding and abdomen not rigid Musculoskeletal: no cyanosis or clubbing, extremities motor strength 5/5 Skin: no rashes, warm and dry Neurologic: moves all extremities and awake Psychiatric: Orientation: alert, oriented to person and cooperative Results & Data Results & Data ([facility]) Vital Signs (Past 12 Hours) Vital Signs Temp Pulse Pulse Resp BP BP Pulse Ox 09/02/20 20:17 36.5 C 75 18 177/81 H 98 09/02/20 17:21 74 09/02/20 15:03 36.4 C L 75 20 144/67 H 98 09/02/20 11:28 36.5 C 79 20 164/83 H 97 PG Care Time/CCT Total # of Minutes Spent Total Time Spent with Patient: Total time spent is greater than 50% in coordination of care (as documented) at patient's floor/unit and/or counseling patient: Coding Level of Care Code 99505 Subseq Hosp Care Lvl 2 Diagnoses Acute hepatic encephalopathy K72.00 CKD (chronic kidney disease), stage IV N18.4 Esophageal varices without bleeding I85.00 Esophageal varices type: unspecified type Hypothermia T68.XXXA Encounter type: initial encounter Bradycardia R00.1 Liver cirrhosis K74.60 Ascites presence: without ascites Hepatic cirrhosis type: unspecified hepatic cirrhosis Hypertension I10 Hypertension type: essential hypertension Type 2 diabetes mellitus E11.9; Z79.4 Diabetes mellitus complication status: without complication Diabetes mellitus halfway insulin use: with rodent exterminator use GERD (gastroesophageal reflux disease) K21.9 Esophagitis presence: esophagitis presence not specified DVT prophylaxis Z29.9 (1) Type 2 diabetes mellitus Diabetes mellitus complication status: without complication Diabetes mellitus halfway insulin use: with halfway use Qualified Code(s): E11.9 - Type 2 diabetes mellitus without complications; Z79.4 - [facility] (current) use of insulin (2) Hypothermia Encounter type: initial encounter Qualified Code(s): T68.XXXA - Hypothermia, initial encounter (3) Liver cirrhosis Ascites presence: without ascites Hepatic cirrhosis type: unspecified hepatic cirrhosis Qualified Code(s): K74.60 - Unspecified cirrhosis of liver (4) GERD (gastroesophageal reflux disease) Esophagitis presence: esophagitis presence not specified Qualified Code(s): K21.9 - Gastro-esophageal reflux disease without esophagitis (5) Esophageal varices without bleeding Esophageal varices type: unspecified type Qualified Code(s): I85.00 - Esophageal varices without bleeding (6) Hypertension Hypertension type: essential hypertension Qualified Code(s): I10 - Essential (primary) hypertension
[2020-09-03 06:36] LABS: BUN Creatinine Ratio 16.9 (10-20); Calcium 7.8 mg/dl (8.5-10.1); Creatinine Clr Calc Pharmacy 23.4 ml/min; Est GFR (African American) 19.6; Est GFR (Non-African American) 16.9; Potassium 3.8 mmol/L (3.5-5.1)
[2020-09-03] MEDS: INSULIN GLARGINE SOLOSTAR 100 UNITS/ML 3 ML PEN SC SCH (08:16)
[2020-09-03] MEDS: HEPARIN SOD 5,000 UNIT/0.5 ML VIAL SQ SCH ×2 (08:16→20:29)
[2020-09-03] MEDS: FAMOTIDINE 20 MG in SYRINGE 3 ML IV SCH (08:16)
[2020-09-03] MEDS: LACTULOSE SYRUP 30 GM/45 ML UDP PO SCH ×3 (08:16→20:29)
[2020-09-03] MEDS: rifAXIMin 550 MG TABLET PO SCH ×2 (08:17→20:30)
[2020-09-03] MEDS: INSULIN ASPART 100 UNITS/ML 3 ML PEN SC SCH ×4 (08:17→20:29)
--- NOTE | 2020-09-03 11:18 | Nephrology Progress Note ---
Date of Service September 03, 2020 Assessment & Plan (1) Acute kidney injury: * REDD due to dehydration. Patient is in recovery phase. He is nonoliguric * 3rd spacing fluid due to hypoalbuminemia. Will hold IVF and encourage oral hydration * No acute indication for HD. Patient is responding to conservative management (2) Chronic kidney disease: * Baseline Cr 3.0 * Poor chronic dialysis candidate since patient is nonadherent with ammonia therapy resulting in dehydration, REDD and recurrent hospitalization. Review of EMR shows that he was previously evaluated for liver transplant and deemed not to be a candidate (3) Hypernatremia: * Encourage oral hydration and monitor serum sodium. (4) Acute hepatic encephalopathy: * RN notes this am show that patient has been taking Rifaximin but refusing Lactulose (5) Liver cirrhosis: * Recurrent hospitalization for hepatic encephalopathy complicated by dehydration and REDD. Patient has been nonadherent with Rifaximin and Lactulose therapy. Need organized plan of care w/ halfway system - ensure patient takes medications as prescribed, refer for transplantation (if a ca ndidate) or pursue comfort measures. Short term prognosis remains poor (6) Anemia, unspecified: * Hgb now trending up (7.8 --> 8.2) * Iron saturation 34%, Ferritin 169. No acute indication for IV iron * Epogen 10,000 units SQ x 1 administered 09/02/20 Admission and Anticipated Discharge Date Admission Date: August 26, 2020 Subjective Mr. Moreira was seen & examined in his hospital room this morning. He was oriented to self only. His speech is garbled and he does not follow commands. Finn catheter remains in place draining clear yellow urine Review of Systems Review of Systems: Unobtainable due to cognitive status Physical Exam Constitutional: + ill appearing and + lethargic Eyes: PERRL, conjunctivae normal, anicteric sclerae ENMT: external ear and nose normal, oropharynx normal Neck: trachea midline, no thyromegaly Respiratory: normal respiratory effort, lungs clear to auscultation Auscultation: lungs clear to auscultation bilaterally Cardiovascular: Rate/Rhythm: regular rate and regular rhythm Extremities: + edema (1+ dependent pitting edema) Gastrointestinal (Abdomen): Inspection/Auscultation: + abdomen distended Percussion/Palpation: abdomen nontender Neurologic: + confused Speech / Cognition: + abnormal speech (slurred speech) Results & Data ([facility]) Vital Signs (Past 12 Hours) Vital Signs Temp Pulse Pulse Resp BP Pulse Ox 09/03/20 07:26 37.2 C 84 115/66 93 09/03/20 06:56 83 09/03/20 04:00 36.9 C 89 18 175/92 H 93 09/03/20 00:38 77 09/02/20 23:20 36.7 C 77 18 187/80 H 96 Laboratory Tests 09/03/20 05:25 Sodium 151 H Potassium 3.8 Chloride 123 H Carbon Dioxide 25 BUN 60 H Creatinine 3.55 H Glucose 155 H PG Care Time/CCT Total # of Minutes Spent Total Time Spent with Patient: Total time spent is greater than 50% in coordination of care (as documented) at patient's floor/unit and/or counseling patient: Coding Level of Care Code 69734 Subseq Hosp Care Lvl 3 Diagnoses Acute kidney injury N17.9 Chronic kidney disease N18.5 Chronic kidney disease stage: stage 5, not on chronic dialysis Hypernatremia E87.0 Acute hepatic encephalopathy K72.00 Liver cirrhosis K74.60 Hepatic cirrhosis type: unspecified hepatic cirrhosis Ascites presence: without ascites Anemia, unspecified D64.9 (1) Chronic kidney disease Chronic kidney disease stage: stage 5, not on chronic dialysis Qualified Code(s): N18.5 - Chronic kidney disease, stage 5 (2) Liver cirrhosis Hepatic cirrhosis type: unspecified hepatic cirrhosis Ascites presence: without ascites Qualified Code(s): K74.60 - Unspecified cirrhosis of liver
[2020-09-03] MEDS: THIAMINE HCL 100 MG in SYRINGE 9 ML IV SCH (12:10)
--- NOTE | 2020-09-03 13:41 | Hospitalist Progress Note ---
Date of Service September 03, 2020 Assessment & Plan (1) Acute hepatic encephalopathy: Due to cirrhosis. - Continue lactulose & rifaximin as tolerating -> Has refused lactulose. - Monitor mental status -> Stable today. Agree with palliative note dated 09/02 that that patient does not have true capability to understand his complex medical issues. (2) CKD (chronic kidney disease), stage IV: Baseline Cr ~3.0 - 4.0. - Avoid nephrotoxins - Finn - Cr presently at baseline: 3.55 today. (3) Esophageal varices without bleeding: Prior notes indicate a hx of esophageal varices, but without any EGD in our system. - Hemoglobin was at baseline (8.7 on admission), then dropped to 6.7 on 08/27. Now stable. - Holding nadolol - Continue ceftriaxone x 7 day course. (4) Hypothermia: Secondary to metabolic encephalopathy. - Warming blanket - Treatment of underlying medical conditions - Presently with normal temperature (5) Bradycardia: Sinus bradycardia. No EKG changes of ischemia. Troponin negative. - Hold nadolol (6) Liver cirrhosis: Due to HCV. - Hold Bumex and spironolactone (7) Hypertension: Blood pressure higher today at 175/80. - Hold nadolol - Monitor (8) Type 2 diabetes mellitus: A1c was 5.4% in 06/2020. - Continue basal/bolus - Blood sugars have been 150-200 in the last 24 hours. - Glycemic pharmacy following (9) GERD (gastroesophageal reflux disease): Chronic. - Pepcid IV daily (10) DVT prophylaxis: Heparin 5,000 units SQ Q12h Admission and Anticipated Discharge Date Admission Date: August 26, 2020 Subjective Denies any pain or shortness of breath of breath for me. Despite multiple attempts, he then falls back asleep. Review of Systems Review of Systems: Unobtainable due to cognitive status Physical Exam Constitutional: WD/WN, vitals as above + acute distress and + lethargic Eyes: EOM intact bilaterally; no conjunctival abnormality ENMT: external ear and nose normal, oropharynx normal Neck: trachea midline, no thyromegaly normal visual inspection Respiratory: normal respiratory effort, lungs clear to auscultation no respiratory distress Cardiovascular: RRR, no murmur, no edema Gastrointestinal (Abdomen): Inspection/Auscultation: abdomen normal to inspe ction, + abdomen distended and normal bowel sounds Percussion/Palpation: abdomen soft; abdomen nontender, no guarding and abdomen not rigid Musculoskeletal: no cyanosis or clubbing, extremities motor strength 5/5 Skin: no rashes, warm and dry Neurologic: moves all extremities and awake Psychiatric: Orientation: oriented to person and cooperative; + not alert Results & Data Results & Data ([facility]) Vital Signs (Past 12 Hours) Vital Signs Temp Pulse Pulse Resp BP Pulse Ox 09/03/20 11:00 36.8 C 80 20 174/83 H 96 09/03/20 07:26 37.2 C 84 115/66 93 09/03/20 06:56 83 09/03/20 04:00 36.9 C 89 18 175/92 H 93 PG Care Time/CCT Total # of Minutes Spent Total Time Spent with Patient: Total time spent is greater than 50% in coordination of care (as documented) at patient's floor/unit and/or counseling patient: Coding Level of Care Code 61001 Subseq Hosp Care Lvl 2 Diagnoses Acute hepatic encephalopathy K72.00 CKD (chronic kidney disease), stage IV N18.4 Esophageal varices without bleeding I85.00 Esophageal varices type: unspecified type Hypothermia T68.XXXA Encounter type: initial encounter Bradycardia R00.1 Liver cirrhosis K74.60 Hepatic cirrhosis type: unspecified hepatic cirrhosis Ascites presence: without ascites Hypertension I10 Hypertension type: essential hypertension Type 2 diabetes mellitus E11.9; Z79.4 Diabetes mellitus care home insulin use: with care home use Diabetes mellitus complication status: without complication GERD (gastroesophageal reflux disease) K21.9 Esophagitis presence: esophagitis presence not specified DVT prophylaxis Z29.9 (1) Esophageal varices without bleeding Esophageal varices type: unspecified type Qualified Code(s): I85.00 - Esophageal varices without bleeding (2) Hypothermia Encounter type: initial encounter Qualified Code(s): T68.XXXA - Hypothermia, initial encounter (3) Liver cirrhosis Hepatic cirrhosis type: unspecified hepatic cirrhosis Ascites presence: without ascites Qualified Code(s): K74.60 - Unspecified cirrhosis of liver (4) Hypertension Hypertension type: essential hypertension Qualified Code(s): I10 - Essential (primary) hypertension (5) Type 2 diabetes mellitus Diabetes mellitus rn long term care insulin use: with care home use Diabetes mellitus complication status: without complication Qualified Code(s): E11.9 - Type 2 diabetes mellitus without complications; Z79.4 - snf (current) use of insulin (6) GERD (gastroesophageal reflux disease) Esophagitis presence: esophagitis presence not specified Qualified Code(s): K21.9 - Gastro-esophageal reflux disease without esophagitis
[2020-09-03] MEDS ORDERED: ETOMIDATE 2 MG/ML 20 ML VIAL IV ONE (21:06)
[2020-09-04 06:05] LABS: Hematocrit (blood only) 25.9 % (42-52); Hemoglobin 8.1 g/dL (14.0-18.0); Mean Corpuscular Hemoglobin 32.9 pg (25-34); Mean Corpuscular Hgb Conc 31.3 g/dL (32-36); Mean Corpuscular Volume 105.3 fL (80-100); Mean Platelet Volume 12.3 fL (7.4-10.4); Platelet Count 48 K/uL (130-400); RDW Coefficient of Variation 19.8 % (11.5-14.5); RDW Standard Deviation 74.7 fL (36.4-46.3); Red Blood Count 2.46 M/uL (4.7-6.1); White Blood Count 8.69 K/uL (4.8-10.8)
[2020-09-04 06:15] LABS: INR 1.3 (0.9-1.1); Prothrombin Time 13.1 Seconds (9.0-12.0)
[2020-09-04 06:38] LABS: Albumin Level 2.1 gm/dl (3.4-5.0); BUN Creatinine Ratio 16.4 (10-20); Calcium 7.8 mg/dl (8.5-10.1); Creatinine Clr Calc Pharmacy 24.3 ml/min; Est GFR (African American) 20.1; Est GFR (Non-African American) 17.4; Potassium 3.9 mmol/L (3.5-5.1)
[2020-09-04 06:41] LABS: Albumin Globulin Ratio 0.5 (0.9-2); Bilirubin,Total 0.9 mg/dl (0.2-1); Globulin 4.1 gm/dl (2.5-4.0); Phosphorus 2.6 mg/dl (2.5-4.9); Total Protein 6.2 gm/dl (6.4-8.2)
[2020-09-04] MEDS: INSULIN ASPART 100 UNITS/ML 3 ML PEN SC SCH ×4 (08:21→21:15)
[2020-09-04] MEDS: LACTULOSE SYRUP 30 GM/45 ML UDP PO SCH ×3 (08:23→20:03)
[2020-09-04] MEDS: HEPARIN SOD 5,000 UNIT/0.5 ML VIAL SQ SCH ×2 (08:23→20:04)
[2020-09-04] MEDS: INSULIN GLARGINE SOLOSTAR 100 UNITS/ML 3 ML PEN SC SCH (08:24)
[2020-09-04] MEDS: rifAXIMin 550 MG TABLET PO SCH ×2 (08:24→20:02)
[2020-09-04] MEDS: FAMOTIDINE 20 MG in SYRINGE 3 ML IV SCH (08:49)
--- NOTE | 2020-09-04 11:13 | Nephrology Progress Note ---
Date of Service September 04, 2020 Assessment & Plan (1) Acute kidney injury: * REDD due to dehydration. Patient is in recovery phase. He is nonoliguric * 3rd spacing fluid due to hypoalbuminemia. Will hold IVF and encourage oral hydration * No acute indication for HD. Patient is responding to conservative management (2) Chronic kidney disease: * Baseline Cr 3.0 * Poor chronic dialysis candidate since patient is nonadherent with ammonia therapy resulting in dehydration, REDD and recurrent hospitalization. Review of EMR shows that he was previously evaluated for liver transplant and deemed not to be a candidate (3) Hypernatremia: * Encourage oral hydration and monitor serum sodium. (4) Acute hepatic encephalopathy: * RN notes this am show that patient has been taking Rifaximin but refusing Lactulose (5) Liver cirrhosis: * Recurrent hospitalization for hepatic encephalopathy complicated by dehydration and REDD. Patient has been nonadherent with Rifaximin and Lactulose therapy. Need organized plan of care w/ longterm system - ensure patient takes medications as prescribed, refer for transplantation (if a ca ndidate) or pursue comfort measures. Short term prognosis remains poor (6) Anemia, unspecified: * Hgb now trending up (7.8 --> 8.1) * Iron saturation 34%, Ferritin 169. No acute indication for IV iron * Epogen 10,000 units SQ x 1 administered 09/02/20 Admission and Anticipated Discharge Date Admission Date: August 26, 2020 Subjective Mr. Moreira was seen & examined in his hospital room this morning. He is alert but oriented to self only. He voices no medical concerns Review of Systems Constitutional: no fever Eyes: no problem reported Ear, Nose, Mouth, Throat: no problem reported Respiratory: no dyspnea Cardiovascular: no chest pain Gastrointestinal: no abdominal pain Physical Exam Constitutional: + ill appearing Eyes: PERRL, conjunctivae normal, anicteric sclerae ENMT: external ear and nose normal, oropharynx normal Neck: trachea midline, no thyromegaly Respiratory: normal respiratory effort, lungs clear to auscultation Auscultation: lungs clear to auscultation bilaterally Cardiovascular: Rate/Rhythm: regular rate and regular rhythm Extremities: + edema (1+ dependent pitting edema) Gastrointestinal (Abdomen): Inspection/Auscultation: + abdomen distended Percussion/Palpation: abdomen nontender Neurologic: + confused Speech / Cognition: + abnormal speech (slurred speech) Results & Data ([facility]) Vital Signs (Past 12 Hours) Vital Signs Temp Pulse Resp BP BP Pulse Ox 09/04/20 07:01 36.9 C 93 H 20 134/85 94 09/04/20 04:00 36.9 C 88 20 178/79 H 95 Laboratory Tests 09/04/20 09/04/20 05:56 05:56 WBC 8.69 Hgb 8.1 L Hct 25.9 L Plt Count 48 L Sodium 150 H Potassium 3.9 Chloride 122 H Carbon Dioxide 24 BUN 57 H Creatinine 3.47 H Glucose 133 H Calcium 7.8 L Albumin 2.1 L PG Care Time/CCT Total # of Minutes Spent Total Time Spent with Patient: Total time spent is greater than 50% in coordination of care (as documented) at patient's floor/unit and/or counseling patient: Coding Level of Care Code 88820 Subseq Hosp Care Lvl 3 Diagnoses Acute kidney injury N17.9 Chronic kidney disease N18.5 Chronic kidney disease stage: stage 5, not on chronic dialysis Hypernatremia E87.0 Acute hepatic encephalopathy K72.00 Liver cirrhosis K74.60 Hepatic cirrhosis type: unspecified hepatic cirrhosis Ascites presence: without ascites Anemia, unspecified D64.9 (1) Chronic kidney disease Chronic kidney disease stage: stage 5, not on chronic dialysis Qualified Code(s): N18.5 - Chronic kidney disease, stage 5 (2) Liver cirrhosis Hepatic cirrhosis type: unspecified hepatic cirrhosis Ascites presence: without ascites Qualified Code(s): K74.60 - Unspecified cirrhosis of liver
--- NOTE | 2020-09-04 17:27 | Hospitalist Progress Note ---
Date of Service September 04, 2020 Assessment & Plan (1) Acute hepatic encephalopathy: Due to cirrhosis. - Continue lactulose & rifaximin as tolerating -> Has refused lactulose. - Monitor mental status -> Improved today. Agree with palliative note dated 09/02 that that patient does not have true capability to understand his complex medical issues. (2) CKD (chronic kidney disease), stage IV: Baseline Cr ~3.0 - 4.0. - Avoid nephrotoxins - Finn - Cr presently at baseline: 3.5 today. (3) Esophageal varices without bleeding: Prior notes indicate a hx of esophageal varices, but without any EGD in our system. - Hemoglobin was at baseline (8.7 on admission), then dropped to 6.7 on 08/27. Received 1 unit PRBCs on 08/27. - Holding nadolol (4) Hypothermia: Secondary to metabolic encephalopathy. - Warming blanket - Treatment of underlying medical conditions - Presently with normal temperature (5) Bradycardia: Sinus bradycardia. No EKG changes of ischemia. Troponin negative. - Hold nadolol (6) Liver cirrhosis: Due to HCV. - Hold Bumex and spironolactone (7) Hypertension: Blood pressure higher today at 175/80. - Hold nadolol - Monitor (8) Type 2 diabetes mellitus: A1c was 5.4% in 06/2020. - Continue basal/bolus - Blood sugars have been 150-200 in the last 24 hours. - Glycemic pharmacy following (9) GERD (gastroesophageal reflux disease): Chronic. - Pepcid PO daily (10) DVT prophylaxis: Heparin 5,000 units SQ Q12h Admission and Anticipated Discharge Date Admission Date: August 26, 2020 Subjective Refusing lactulose today. Reports that "it doesn't help." which I explained it clearly does as he was near when he came to the hospital. He says, "If I get confused, I get confused." and continues to eat his lunch. Physical Exam Constitutional: WD/WN, vitals as above + acute distress and + lethargic Eyes: EOM intact bilaterally; no conjunctival abnormality ENMT: external ear and nose normal, oropharynx normal Neck: trachea midline, no thyromegaly normal visual inspection Respiratory: normal respiratory effort, lungs clear to auscultation no respiratory distress Cardiovascular: RRR, no murmur, no edema Gastrointestinal (Abdomen): Inspection/Auscultation: abdomen normal to inspection, + abdomen distended and normal bowel sounds Percussion/Palpation: abdomen soft; abdomen nontender, no guarding and abdomen not rigid Musculoskeletal: no cyanosis or clubbing, extremities motor strength 5/5 Skin: no rashes, warm and dry Neurologic: moves all extremities and awake Psychiatric: Orientation: alert, oriented to person and cooperative Results & Data Results & Data ([facility]) Vital Signs (Past 12 Hours) Vital Signs Temp Pulse Resp BP Pulse Ox 09/04/20 15:53 36.7 C 86 20 165/77 H 95 09/04/20 11:17 37.1 C 66 20 166/74 H 96 09/04/20 07:01 36.9 C 93 H 20 134/85 94 PG Care Time/CCT Total # of Minutes Spent Total Time Spent with Patient: Total time spent is greater than 50% in coordination of care (as documented) at patient's floor/unit and/or counseling patient: Coding Level of Care Code 94196 Subseq Hosp Care Lvl 2 Diagnoses Acute hepatic encephalopathy K72.00 CKD (chronic kidney disease), stage IV N18.4 Esophageal varices without bleeding I85.00 Esophageal varices type: unspecified type Hypothermia T68.XXXA Encounter type: initial encounter Bradycardia R00.1 Liver cirrhosis K74.60 Hepatic cirrhosis type: unspecified hepatic cirrhosis Ascites presence: without ascites Hypertension I10 Hypertension type: essential hypertension Type 2 diabetes mellitus E11.9; Z79.4 Diabetes mellitus buttermaker continuous churn insulin use: with buttermaker continuous churn use Diabetes mellitus complication status: without complication GERD (gastroesophageal reflux disease) K21.9 Esophagitis presence: esophagitis presence not specified DVT prophylaxis Z29.9 (1) Esophageal varices without bleeding Esophageal varices type: unspecified type Qualified Code(s): I85.00 - Esophageal varices without bleeding (2) Hypothermia Encounter type: initial encounter Qualified Code(s): T68.XXXA - Hypothermia, initial encounter (3) Liver cirrhosis Hepatic cirrhosis type: unspecified hepatic cirrhosis Ascites presence: without ascites Qualified Code(s): K74.60 - Unspecified cirrhosis of liver (4) Hypertension Hypertension type: essential hypertension Qualified Code(s): I10 - Essential (primary) hypertension (5) Type 2 diabetes mellitus Diabetes mellitus correction insulin use: with buttermaker continuous churn use Diabetes mellitus complication status: without complication Qualified Code(s): E11.9 - Type 2 diabetes mellitus without complications; Z79.4 - residential (current) use of insulin (6) GERD (gastroesophageal reflux disease) Esophagitis presence: esophagitis presence not specified Qualified Code(s): K21.9 - Gastro-esophageal reflux disease without esophagitis
[2020-09-05 05:49] LABS: Hematocrit (blood only) 26.3 % (42-52); Hemoglobin 8.1 g/dL (14.0-18.0); Mean Corpuscular Hemoglobin 32.7 pg (25-34); Mean Corpuscular Hgb Conc 30.8 g/dL (32-36); RDW Coefficient of Variation 19.9 % (11.5-14.5); RDW Standard Deviation 75.4 fL (36.4-46.3); Red Blood Count 2.48 M/uL (4.7-6.1); White Blood Count 9.31 K/uL (4.8-10.8)
[2020-09-05 05:53] LABS: Mean Platelet Volume 11.3 fL (7.4-10.4); Platelet Count 57 K/uL (130-400)
[2020-09-05 06:30] LABS: BUN Creatinine Ratio 16.3 (10-20); Calcium 7.8 mg/dl (8.5-10.1); Est GFR (Non-African American) 18.1; Potassium 3.9 mmol/L (3.5-5.1)
[2020-09-05 06:32] LABS: Albumin Globulin Ratio 0.5 (0.9-2); Bilirubin,Total 0.8 mg/dl (0.2-1)
[2020-09-05] MEDS: INSULIN ASPART 100 UNITS/ML 3 ML PEN SC SCH ×4 (08:15→20:58)
[2020-09-05] MEDS: INSULIN GLARGINE SOLOSTAR 100 UNITS/ML 3 ML PEN SC SCH (08:17)
[2020-09-05] MEDS: FAMOTIDINE 20 MG TAB PO SCH (08:17)
[2020-09-05] MEDS: HEPARIN SOD 5,000 UNIT/0.5 ML VIAL SQ SCH ×2 (08:17→20:56)
[2020-09-05] MEDS: rifAXIMin 550 MG TABLET PO SCH ×2 (08:17→20:55)
[2020-09-05] MEDS: LACTULOSE SYRUP 30 GM/45 ML UDP PO SCH ×3 (08:17→20:56)
--- NOTE | 2020-09-05 11:38 | Nephrology Progress Note ---
Date of Service September 05, 2020 Assessment & Plan (1) Acute kidney injury: * REDD due to dehydration. Patient is in recovery phase. He is nonoliguric * 3rd spacing fluid due to hypoalbuminemia. Will hold IVF and encourage oral hydration * No acute indication for HD. Patient is responding to conservative management (2) Chronic kidney disease: * Baseline Cr 3.0 * Poor chronic dialysis candidate since patient is nonadherent with ammonia therapy resulting in dehydration, REDD and recurrent hospitalization. Review of EMR shows that he was previously evaluated for liver transplant and deemed not to be a candidate (3) Hypernatremia: * Encourage oral hydration and monitor serum sodium. (4) Acute hepatic encephalopathy: * RN notes this am show that patient has been taking Rifaximin but refusing Lactulose (5) Liver cirrhosis: * Recurrent hospitalization for hepatic encephalopathy complicated by dehydration and REDD. Patient has been nonadherent with Rifaximin and Lactulose therapy. Today he declined medical evaluation. Need organized plan of care w/ correction system - ensure patient takes medications as prescribed, refer for transplantation (if a candidate) or pursue comfort measures. Short term prognosis remains poor (6) Anemia, unspecified: * Hgb now trending up (7.8 --> 8.1) * Iron saturation 34%, Ferritin 169. No acute indication for IV iron * Epogen 10,000 units SQ x 1 administered 09/02/20 Admission and Anticipated Discharge Date Admission Date: August 26, 2020 Subjective Mr. Moreira declined medical evaluation this morning. Upon my entry into his room he pulled the covers over his face stating "leave me alone!" Review of Systems Review of Systems: Unobtainable - patient not cooperative Physical Exam Physical Exam: Patient refused examination today Results & Data ([facility]) Vital Signs (Past 12 Hours) Vital Signs Temp Pulse Resp BP BP Pulse Ox 09/05/20 11:08 36.9 C 91 H 18 160/77 H 97 09/05/20 07:18 37.3 C 93 H 17 189/80 H 93 09/05/20 04:45 37 C 93 H 16 168/81 H 96 09/04/20 23:39 37.1 C 86 16 172/81 H 97 Laboratory Tests 09/05/20 09/05/20 05:14 05:14 WBC 9.31 Hgb 8.1 L Hct 26.3 L Plt Count 57 L Sodium 149 H Potassium 3.9 Chloride 122 H Carbon Dioxide 24 BUN 54 H Creatinine 3.35 H PG Care Time/CCT Total # of Minutes Spent Total Time Spent with Patient: Total time spent is greater than 50% in coordination of care (as documented) at patient's floor/unit and/or counseling patient: Coding Level of Care Code 16320 Subseq Hosp Care Lvl 3 Diagnoses Acute kidney injury N17.9 Chronic kidney disease N18.5 Chronic kidney disease stage: stage 5, not on chronic dialysis Hypernatremia E87.0 Acute hepatic encephalopathy K72.00 Liver cirrhosis K74.60 Hepatic cirrhosis type: unspecified hepatic cirrhosis Ascites presence: without ascites Anemia, unspecified D64.9 (1) Chronic kidney disease Chronic kidney disease stage: stage 5, not on chronic dialysis Qualified Code(s): N18.5 - Chronic kidney disease, stage 5 (2) Liver cirrhosis Hepatic cirrhosis type: unspecified hepatic cirrhosis Ascites presence: without ascites Qualified Code(s): K74.60 - Unspecified cirrhosis of liver
--- NOTE | 2020-09-05 13:31 | Palliative Care Progress Note ---
Date of Service September 05, 2020 Assessment & Plan (1) Acute hepatic encephalopathy: (2) CKD (chronic kidney disease), stage IV: (3) Liver cirrhosis: (4) Palliative care encounter: Participated in zoom meeting this morning with Dr. Antony, Case Management and staff from [facility]. As with previous admissions, Chicho has not been compliant with lactulose and therefore, his mental status is variable. Today he does recall talking with me in the past about goals of care. He remembers s aying that he would want us to do whatever we could for him and also having said that he would want to peacefully if he could not be saved. He complains today of being tired of living in the bed. He expressed concern about feeling so tired today. I reminded him that this is impacted by his ammonia level and he would likely be less tired with lactulose. I asked him what would happen if he continued to decline medication. He shrugged his shoulders. I explained that he would without treatment and he again shrugged his shoulders. We discussed discrepancies in his choices and what he has expressed as his wishes for end of life care. He again says that he doesn't want to . I told him that he is able to choose how we approach his care and he deferred to his brother, Tramaine. I called Tramaine to update and discuss but was not able to reach him. Will continue to try. 1415 I was able to reach Chicho Padilla's brother. I updated him on Chicho's condition and reviewed the discussion that we had earlier today, I told him that Chicho had deferred to him with help for decision making. Tramaine does remember discussing this with palliative care in May but seems a bit overwhelmed with decision today. Unfortunately, his health is also not good. He would like to discuss with another brother and we will touch base again tomorrow. Admission and Anticipated Discharge Date Admission Date: August 26, 2020 Subjective Awake, speech slightly slurred. Recalls conversation that we had in the past about goals of care. He has been refusing lactulose. Review of Systems Review of Systems: [place] Symptom Assessment Scale Pain 0/3 Dyspnea 0/3 Anxiety 1/3 Nausea 0/3 Drowsiness 0/3 Palliative Performance Score 40% Physical Exam Constitutional: + ill appearing, + disheveled and comfortable ENMT: Mouth: + dry oral mucous membranes Respiratory: normal respiratory effort; no labored breathing Gastrointestinal (Abdomen): Inspection/Auscultation: + abdomen distended Musculoskeletal: Extremities: extremities normal to inspection Skin: warm and dry Neurologic: moves all extremities and awake Psychiatric: Affect: + irritable affect Thought Process: goal directed thought process Insight: + limited insight Results & Data ([facility]) Vital Signs (Past 12 Hours) Vital Signs Temp Pulse Resp BP BP Pulse Ox 09/05/20 11:08 98.4 F 91 H 18 160/77 H 97 09/05/20 07:18 99.1 F 93 H 17 189/80 H 93 09/05/20 04:45 98.6 F 93 H 16 168/81 H 96 PG Care Time/CCT Total # of Minutes Spent Total Time Spent with Patient: Total time spent is greater than 50% in coordination of care (as documented) at patient's floor/unit and/or counseling patient: Total time spent 65 minutes with more than 50% of time spent on cooordination of care, goals of care. Coding Level of Care Code 46156 Subseq Hosp Care Lvl 3 Diagnoses Acute hepatic encephalopathy K72.00 CKD (chronic kidney disease), stage IV N18.4 Liver cirrhosis K74.60 Ascites presence: without ascites Hepatic cirrhosis type: unspecified hepatic cirrhosis Palliative care encounter Z51.5 Time Spent (min) 65 (1) Liver cirrhosis Ascites presence: without ascites Hepatic cirrhosis type: unspecified hepatic cirrhosis Qualified Code(s): K74.60 - Unspecified cirrhosis of liver
--- NOTE | 2020-09-05 15:33 | Hospitalist Progress Note ---
Date of Service September 05, 2020 Assessment & Plan (1) Acute hepatic encephalopathy: Due to cirrhosis. - Continue lactulose & rifaximin as tolerating -> Has refused lactulose. - Monitor mental status -> Worse today, though was able to wake up and discuss with palliative. At issue is that he refuses lactulose until he is obtunded, but also largely desires full code, full-treatment options, so as soon as he becomes obtunded, we restart his lactulose by NG or rectal means. (2) CKD (chronic kidney disease), stage IV: Baseline Cr ~3.0 - 4.0. - Avoid nephrotoxins - Finn - Cr presently at baseline: 3.35 today. (3) Esophageal varices without bleeding: Prior notes indicate a hx of esophageal varices, but without any EGD in our system. - Hemoglobin was at baseline (8.7 on admission), then dropped to 6.7 on 08/27. Received 1 unit PRBCs on 08/27. - Today is 8.1. - Holding nadolol (4) Hypothermia: Secondary to metabolic encephalopathy. - Warming blanket - Treatment of underlying medical conditions - Presently with normal temperature (5) Bradycardia: Sinus bradycardia. No EKG changes of ischemia. Troponin negative. - Hold nadolol (6) Liver cirrhosis: Due to HCV. - Hold Bumex and spironolactone (7) Hypertension: Blood pressure higher today at 175/80. - Hold nadolol - Monitor (8) Type 2 diabetes mellitus: A1c was 5.4% in 06/2020. - Continue basal/bolus - Blood sugars have been 150-200 in the last 24 hours. - Glycemic pharmacy following (9) GERD (gastroesophageal reflux disease): Chronic. - Pepcid PO daily (10) DVT prophylaxis: Heparin 5,000 units SQ Q12h Admission and Anticipated Discharge Date Admission Date: August 26, 2020 Subjective More lethargic today. Some slurring with words. Reports no fevers/chills, chest pain, shortness of breath, abdominal pain, nausea, or vomiting. Physical Exam Constitutional: WD/WN, vitals as above + acute distress and + lethargic Eyes: EOM intact bilaterally; no conjunctival abnormality ENMT: external ear and nose normal, oropharynx normal Neck: trachea midline, no thyromegaly normal visual inspection Respiratory: normal respiratory effort, lungs clear to auscultation no respiratory distress Cardiovascular: RRR, no murmur, no edema Gastrointestinal (Abdomen): Inspection/Auscultation: abdomen normal to inspection, + abdomen distended and normal bowel sounds Percussion/Palpation: abdomen soft; abdomen nontender, no guarding and abdomen not rigid Musculoskeletal: no cyanosis or clubbing, extremities motor strength 5/5 Skin: no rashes, warm and dry Neurologic: moves all extremities and awake Psychiatric: Orientation: oriented to person and cooperative; + not alert Results & Data Results & Data ([facility]) Vital Signs (Past 12 Hours) Vital Signs Temp Pulse Resp BP BP Pulse Ox 09/05/20 11:08 36.9 C 91 H 18 160/77 H 97 09/05/20 07:18 37.3 C 93 H 17 189/80 H 93 09/05/20 04:45 37 C 93 H 16 168/81 H 96 PG Care Time/CCT Total # of Minutes Spent Total Time Spent with Patient: Total time spent is greater than 50% in coordination of care (as documented) at patient's floor/unit and/or counseling patient: Coding Level of Care Code 69279 Subs Hosp Care Lvl 2 Diagnoses Acute hepatic encephalopathy K72.00 CKD (chronic kidney disease), stage IV N18.4 Esophageal varices without bleeding I85.00 Esophageal varices type: unspecified type Hypothermia T68.XXXA Encounter type: initial encounter Bradycardia R00.1 Liver cirrhosis K74.60 Hepatic cirrhosis type: unspecified hepatic cirrhosis Ascites presence: without ascites Hypertension I10 Hypertension type: essential hypertension Type 2 diabetes mellitus E11.9; Z79.4 Diabetes mellitus long term care pharmacist insulin use: with retirement use Diabetes mellitus complication status: without complication GERD (gastroesophageal reflux disease) K21.9 Esophagitis presence: esophagitis presence not specified DVT prophylaxis Z29.9 (1) Esophageal varices without bleeding Esophageal varices type: unspecified type Qualified Code(s): I85.00 - Esophageal varices without bleeding (2) Hypothermia Encounter type: initial encounter Qualified Code(s): T68.XXXA - Hypothermia, initial encounter (3) Liver cirrhosis Hepatic cirrhosis type: unspecified hepatic cirrhosis Ascites presence: without ascites Qualified Code(s): K74.60 - Unspecified cirrhosis of liver (4) Hypertension Hypertension type: essential hypertension Qualified Code(s): I10 - Essential (primary) hypertension (5) Type 2 diabetes mellitus Diabetes mellitus long term care pharmacist insulin use: with retirement use Diabetes mellitus complication status: without complication Qualified Code(s): E11.9 - Type 2 diabetes mellitus without complications; Z79.4 - halfway (current) use of insulin (6) GERD (gastroesophageal reflux disease) Esophagitis presence: esophagitis presence not specified Qualified Code(s): K21.9 - Gastro-esophageal reflux disease without esophagitis
[2020-09-06] MEDS ORDERED: nadoloL 40 MG TAB PO ONE (01:34)
[2020-09-06 06:12] LABS: Hemoglobin 8.1 g/dL (14.0-18.0); Mean Corpuscular Hemoglobin 32.9 pg (25-34); Mean Corpuscular Hgb Conc 31.2 g/dL (32-36); Mean Corpuscular Volume 105.7 fL (80-100); RDW Coefficient of Variation 20.1 % (11.5-14.5); RDW Standard Deviation 76.3 fL (36.4-46.3); Red Blood Count 2.46 M/uL (4.7-6.1); White Blood Count 7.74 K/uL (4.8-10.8)
[2020-09-06 06:23] LABS: INR 1.2 (0.9-1.1); Prothrombin Time 12.9 Seconds (9.0-12.0)
[2020-09-06 06:24] LABS: Mean Platelet Volume 11.2 fL (7.4-10.4); Platelet Count 66 K/uL (130-400)
[2020-09-06 06:51] LABS: BUN Creatinine Ratio 16.4 (10-20); Calcium 7.7 mg/dl (8.5-10.1); Creatinine Clr Calc Pharmacy 25.9 ml/min; Est GFR (African American) 21.9; Est GFR (Non-African American) 18.9; Magnesium 2.1 mg/dl (1.8-2.4)
[2020-09-06 06:52] LABS: Albumin Globulin Ratio 0.5 (0.9-2); Bilirubin,Total 0.8 mg/dl (0.2-1)
[2020-09-06] MEDS: INSULIN GLARGINE SOLOSTAR 100 UNITS/ML 3 ML PEN SC SCH (08:29)
[2020-09-06] MEDS: FAMOTIDINE 20 MG TAB PO SCH (08:29)
[2020-09-06] MEDS: rifAXIMin 550 MG TABLET PO SCH ×2 (08:29→20:42)
[2020-09-06] MEDS: INSULIN ASPART 100 UNITS/ML 3 ML PEN SC SCH ×4 (08:30→20:42)
[2020-09-06] MEDS: LACTULOSE SYRUP 30 GM/45 ML UDP PO SCH ×4 (08:31→20:51)
[2020-09-06] MEDS: HEPARIN SOD 5,000 UNIT/0.5 ML VIAL SQ SCH ×2 (08:31→20:42)
[2020-09-06] MEDS ORDERED: nadoloL 40 MG TAB PO SCH (09:00)
--- NOTE | 2020-09-06 10:33 | Palliative Care Progress Note ---
Date of Service September 06, 2020 Assessment & Plan (1) Palliative care encounter: I spoke with Chicho about my conversation with his brother, Tramaine, yesterday and told him that I would be speaking to Tramaine again today. He nodded. I did reach out to Tramaine who has spoken with their other brother. The consensus opinion of the brothers is to "do what's best for Chicho". I asked him to discuss that a bit more and he said that he would want him to have whatever care he needed to try and get better. He would want to be kept informed and is agreeable to further discussion if Chicho's prognosis were to change significantly. Discussed with Dr. Antony. Admission and Anticipated Discharge Date Admission Date: August 26, 2020 Subjective BM this morning. Irritable but alert. Recalls conversation from yesterday. Review of Systems Review of Systems: [place] Symptom Assessment Scale Pain 1/3 Dyspnea 0/3 Nausea 0/3 Anxiety 0/3 Drowsiness 1/3 Palliative Performance Score 30% Physical Exam Constitutional: + edematous ENMT: Mouth: + dry oral mucous membranes Respiratory: normal respiratory effort; no labored breathing Gastrointestinal (Abdomen): Inspection/Auscultation: + abdomen distended umbilical hernia Musculoskeletal: Extremities: extremities normal to inspection Neurologic: moves all extremities Results & Data ([facility]) Vital Signs (Past 12 Hours) Vital Signs Temp Pulse Pulse Resp BP BP Pulse Ox 09/06/20 07:36 98.8 F 73 18 181/81 H 96 09/06/20 07:23 78 09/06/20 07:11 99.0 F 74 18 185/78 H 96 09/06/20 03:00 98.2 F 87 18 177/78 H 97 09/05/20 23:54 80 09/05/20 23:24 98.2 F 87 18 181/85 H 97 PG Care Time/CCT Total # of Minutes Spent Total Time Spent with Patient: Total time spent is greater than 50% in co ordination of care (as documented) at patient's floor/unit and/or counseling patient: Total time spent 30 minutes with more than 50% of time spent on discussing goals of care and coordination of care. Coding Level of Care Code 51031 Subseq Hosp Care Lvl 2 Diagnoses Palliative care encounter Z51.5
--- NOTE | 2020-09-06 11:14 | Nephrology Progress Note ---
Date of Service September 06, 2020 Assessment & Plan (1) Acute kidney injury: * REDD resolved. Renal impairment was due to dehydration related to hepatic encephalopathy * 3rd spacing fluid due to hypoalbuminemia * Hold IVF and encourage oral hydration * No acute indication for HD. Patient is responding to conservative management * No further Nephrology evaluation indicated. Will sign off. Please call if further assistance is needed (2) Chronic kidney disease: * Baseline Cr 3.0 * Poor chronic dialysis candidate since patient is nonadherent with ammonia therapy resulting in dehydration, REDD and recurrent hospitalization. Review of EMR shows that he was previously evaluated for liver transplant and deemed not to be a candidate (3) Hypernatremia: * Encourage oral hydration and monitor serum sodium. (4) Acute hepatic encephalopathy: * RN notes show that patient has been taking Rifaximin but refusing Lactulose (5) Liver cirrhosis: * Recurrent hospitalization for hepatic encephalopathy complicated by dehydration and REDD. Patient has been nonadherent with Rifaximin and Lactulose therapy. Need organized plan of care w/ snf system - ensure patient takes medications as prescribed, refer for transplantation (if a candidate) or pursue comfort measures. Case management and palliative care are assisting. Short term prognosis remains poor (6) Anemia, unspecified: * Hgb now trending up (7.8 --> 8.1) * Iron saturation 34%, Ferritin 169. No acute indication for IV iron * Epogen 10,000 units SQ x 1 administered 09/02/20 Admission and Anticipated Discharge Date Admission Date: August 26, 2020 Subjective Mr. Moreira was seen & examined in his hospital room this morning. He was alert and oriented to self and place. Mr. Moreira reports that he has been refusing lactulose due to frequent BM's. He denied dyspnea, flank pain or uremic symptoms Review of Systems Constitutional: no fever Eyes: no problem reported Ear, Nose, Mouth, Throat: no problem reported Respiratory: no dyspnea Cardiovascular: no chest pain Gastrointestinal: no abdominal pain Physical Exam Constitutional: + ill appearing Eyes: PERRL, conjunctivae normal, anicteric sclerae ENMT: external ear and nose normal, oropharynx normal Neck: trachea midline, no thyromegaly Respiratory: normal respiratory effort, lungs clear to auscultation Auscultation: lungs clear to auscultation bilaterally Cardiovascular: Rate/Rhythm: regular rate and regular rhythm Extremities: + edema (1+ dependent pitting edema) Gastrointestinal (Abdomen): Inspection/Auscultation: + abdomen distended Percussion/Palpation: abdomen nontender Neurologic: Speech / Cognition: + abnormal speech (slurred speech) Results & Data ([facility]) Vital Signs (Past 12 Hours) Vital Signs Temp Pulse Pulse Resp BP BP Pulse Ox 09/06/20 07:36 37.1 C 73 18 181/81 H 96 09/06/20 07:23 78 09/06/20 07:11 37.2 C 74 18 185/78 H 96 09/06/20 03:00 36.8 C 87 18 177/78 H 97 09/05/20 23:54 80 09/05/20 23:24 36.8 C 87 18 181/85 H 97 Laboratory Tests 09/06/20 09/06/20 05:09 05:09 WBC 7.74 Hgb 8.1 L Hct 26.0 L Plt Count 66 L Sodium 149 H Potassium 4.0 Chloride 121 H BUN 53 H Creatinine 3.23 H Glucose 114 H Calcium 7.7 L Albumin 2.0 L PG Care Time/CCT Total # of Minutes Spent Total Time Spent with Patient: Total time spent is greater than 50% in coordination of care (as documented) at patient's floor/unit and/or counseling patient: Coding Level of Care Code 48420 Subseq Hosp Care Lvl 3 Diagnoses Acute kidney injury N17.9 Chronic kidney disease N18.5 Chronic kidney disease stage: stage 5, not on chronic dialysis Hypernatremia E87.0 Acute hepatic encephalopathy K72.00 Liver cirrhosis K74.60 Hepatic cirrhosis type: unspecified hepatic cirrhosis Ascites presence: without ascites Anemia, unspecified D64.9 (1) Chronic kidney disease Chronic kidney disease stage: stage 5, not on chronic dialysis Qualified Code(s): N18.5 - Chronic kidney disease, stage 5 (2) Liver cirrhosis Hepatic cirrhosis type: unspecified hepatic cirrhosis Ascites presence: without ascites Qualified Code(s): K74.60 - Unspecified cirrhosis of liver
--- NOTE | 2020-09-06 14:32 | Electrocardiogram Report ---
Test Reason : Blood Pressure : / mmHG Vent. Rate : 082 BPM Atrial Rate : 082 BPM P-R Int : 128 ms QRS Dur : 078 ms QT Int : 398 ms P-R-T Axes : 042 016 -02 degrees QTc Int : 464 ms Normal sinus rhythm Borderline Nonspecific T wave abnormality Borderline ECG When compared with ECG of 06-SEP-2020 07:57, (unconfirmed) HR has increased Confirmed by Duc Cunningham ([id number]) on 09/06/2020 2:32:22 PM Referred By: REFERRED SELF Confirmed By:Duc Cunningham
--- NOTE | 2020-09-06 14:40 | Hospitalist Progress Note ---
Date of Service September 06, 2020 Assessment & Plan (1) Acute hepatic encephalopathy: Due to cirrhosis. - Continue lactulose & rifaximin as tolerating -> Has refused lactulose. - Monitor mental status -> Stable today. Able to wake up and discuss care. He feels well overall. (2) CKD (chronic kidney disease), stage IV: Baseline Cr ~3.0 - 4.0. - Avoid nephrotoxins - Finn - Cr presently at baseline: 3.35 today. (3) Esophageal varices without bleeding: Prior notes indicate a hx of esophageal varices, but without any EGD in our system. - Hemoglobin was at baseline (8.7 on admission), then dropped to 6.7 on 08/27. Received 1 unit PRBCs on 08/27. - Today is 8.1. Stable. - Restart nadolol (4) Liver cirrhosis: Due to HCV. - Hold Bumex and spironolactone (5) Hypertension: Blood pressure higher today at 175/80. - Restarted nadolol on 09/06 (6) Type 2 diabetes mellitus: A1c was 5.4% in 06/2020. - Continue basal/bolus - Blood sugars have been 150-200 in the last 24 hours. - Glycemic pharmacy following (7) GERD (gastroesophageal reflux disease): Chronic. - Pepcid PO daily (8) DVT prophylaxis: Heparin 5,000 units SQ Q12h Admission and Anticipated Discharge Date Admission Date: August 26, 2020 Subjective Quite lucid again today. Able to converse. He feels well and had no pain overnight. Reports no fevers/chills, chest pain, shortness of breath, abdominal pain, nausea, or vomiting. Physical Exam Constitutional: WD/WN, vitals as above + lethargic Eyes: EOM intact bilaterally; no conjunctival abnormality ENMT: external ear and nose normal, oropharynx normal Neck: trachea midline, no thyromegaly normal visual inspection Respiratory: normal respiratory effort, lungs clear to auscultation no respiratory distress Cardiovascular: RRR, no murmur, no edema Gastrointestinal (Abdomen): Inspection/Auscultation: abdomen normal to inspection, + abdomen distended and normal bowel sounds Percussion/Palpation: abdomen soft; abdomen nontender, no guarding and abdomen not rigid Musculoskeletal: no cyanosis or clubbing, extremities motor strength 5/5 Skin: no rashes, warm and dry Neurologic: moves all extremities and awake Psychiatric: Orientation: alert and oriented to person; + uncooperative Results & Data Results & Data ([facility]) Vital Signs (Past 12 Hours) Vital Signs Temp Pulse Pulse Resp BP BP Pulse Ox 09/06/20 11:38 36.8 C 75 16 172/78 H 98 09/06/20 07:36 37.1 C 73 18 181/81 H 96 09/06/20 07:23 78 09/06/20 07:11 37.2 C 74 18 185/78 H 96 09/06/20 03:00 36.8 C 87 18 177/78 H 97 PG Care Time/CCT Total # of Minutes Spent Total Time Spent with Patient: Total time spent is greater than 50% in coordination of care (as documented) at patient's floor/unit and/or counseling patient: Coding Level of Care Code 79028 Subseq Hosp Care Lvl 2 Diagnoses Acute hepatic encephalopathy K72.00 CKD (chronic kidney disease), stage IV N18.4 Esophageal varices without bleeding I85.00 Esophageal varices type: unspecified type Liver cirrhosis K74.60 Hepatic cirrhosis type: unspecified hepatic cirrhosis Ascites presence: without ascites Hypertension I10 Hypertension type: essential hypertension Type 2 diabetes mellitus E11.9; Z79.4 Diabetes mellitus predatory animal exterminator insulin use: with nursing home use Diabetes mellitus complication status: without complication GERD (gastroesophageal reflux disease) K21.9 Esophagitis presence: esophagitis presence not specified DVT prophylaxis Z29.9 (1) Esophageal varices without bleeding Esophageal varices type: unspecified type Qualified Code(s): I85.00 - Esophageal varices without bleeding (2) Liver cirrhosis Hepatic cirrhosis type: unspecified hepatic cirrhosis Ascites presence: without ascites Qualified Code(s): K74.60 - Unspecified cirrhosis of liver (3) Hypertension Hypertension type: essential hypertension Qualified Code(s): I10 - Essential (primary) hypertension (4) Type 2 diabetes mellitus Diabetes mellitus nursing home insulin use: with nursing home use Diabetes mellitus complication status: without complication Qualified Code(s): E11.9 - Type 2 diabetes mellitus without complications; Z79.4 - penitentiary (current) use of insulin (5) GERD (gastroesophageal reflux disease) Esophagitis presence: esophagitis presence not specified Qualified Code(s): K21.9 - Gastro-esophageal reflux disease without esophagitis
[2020-09-07] MEDS: nadoloL 40 MG TAB PO SCH (08:42)
[2020-09-07] MEDS: FAMOTIDINE 20 MG TAB PO SCH (08:43)
[2020-09-07] MEDS: rifAXIMin 550 MG TABLET PO SCH ×2 (08:43→20:18)
[2020-09-07] MEDS: HEPARIN SOD 5,000 UNIT/0.5 ML VIAL SQ SCH ×2 (08:43→20:19)
[2020-09-07] MEDS: INSULIN GLARGINE SOLOSTAR 100 UNITS/ML 3 ML PEN SC SCH (08:43)
[2020-09-07] MEDS: INSULIN ASPART 100 UNITS/ML 3 ML PEN SC SCH ×4 (08:44→20:54)
[2020-09-07] MEDS: LACTULOSE SYRUP 30 GM/45 ML UDP PO SCH ×3 (08:55→20:19)
[2020-09-07 09:35] LABS: Hematocrit (blood only) 27.3 % (42-52); Hemoglobin 8.3 g/dL (14.0-18.0); Mean Corpuscular Hgb Conc 30.4 g/dL (32-36); Mean Corpuscular Volume 105.4 fL (80-100); RDW Coefficient of Variation 19.9 % (11.5-14.5); RDW Standard Deviation 76.6 fL (36.4-46.3); Red Blood Count 2.59 M/uL (4.7-6.1); White Blood Count 6.12 K/uL (4.8-10.8)
[2020-09-07 09:52] LABS: Mean Platelet Volume 11.5 fL (7.4-10.4); Platelet Count 77 K/uL (130-400)
[2020-09-07 10:08] LABS: BUN Creatinine Ratio 16.7 (10-20); Bilirubin,Total 0.9 mg/dl (0.2-1); Calcium 8.3 mg/dl (8.5-10.1); Creatinine Clr Calc Pharmacy 26.6 ml/min; Est GFR (African American) 22.3; Est GFR (Non-African American) 19.3; Magnesium 1.9 mg/dl (1.8-2.4)
[2020-09-07 10:16] LABS: Albumin Globulin Ratio 0.5 (0.9-2); Globulin 4.3 gm/dl (2.5-4.0); Total Protein 6.3 gm/dl (6.4-8.2)
--- NOTE | 2020-09-07 14:08 | Hospitalist Progress Note ---
Date of Service September 07, 2020 Assessment & Plan (1) Acute hepatic encephalopathy: Due to cirrhosis. - Continue lactulose & rifaximin as tolerating -> Has refused lactulose. - Monitor mental status -> Stable today. Able to wake up and discuss care. He feels like he feels is already tired and weak, so doesn't see what the point of taking the lactulose is. He did get badgered into taking a half-dose yesterday and today. - Consulted ethics on 09/05. End result: Try to get goals of care while he is clear, coherent, cooperative, and capable, then stick with that if he gets encephalopathic. Additionally, can ask brothers for advice. In this case, for me, he is telling me that he wants full care, and that if gets confused, I should put in an NG tube and "clear him up." Brothers were contacted by palliative who also report desire for full medical care. - Can discuss with Dr. Shaffer at senior living about when to discharge. (2) CKD (chronic kidney disease), stage IV: Baseline Cr ~3.0 - 4.0. - Avoid nephrotoxins - Finn - Cr presently at baseline: 3.2 today. (3) Esophageal varices without bleeding: Prior notes indicate a hx of esophageal varices, but without any EGD in our system. - Hemoglobin was at baseline (8.7 on admission), then dropped to 6.7 on 08/27. Received 1 unit PRBCs on 08/27. - Today is 8.3. Stable. - Restart nadolol (4) Liver cirrhosis: Due to HCV. - Hold Bumex and spironolactone (5) Hypertension: Blood pressure higher today at 160/80. - Restarted nadolol on 09/06 (6) Type 2 diabetes mellitus: A1c was 5.4% in 06/2020. - Continue basal/bolus - Blood sugars have been 150-200 in the last 24 hours. - Glycemic pharmacy following (7) GERD (gastroesophageal reflux disease): Chronic. - Pepcid PO daily (8) DVT prophylaxis: Heparin 5,000 units SQ Q12h Admission and Anticipated Discharge Date Admission Date: August 26, 2020 Subjective No change today. Reports he is "tired and weak" already, so asking why he should take his lactulose anyhow. Physical Exam Constitutional: WD/WN, vitals as above + lethargic Eyes: EOM intact bilaterally; no conjunctival abnormality ENMT: external ear and nose normal, oropharynx normal Neck: trachea midline, no thyromegaly normal visual inspection Respiratory: normal respiratory effort, lungs clear to auscultation no respiratory distress Cardiovascular: RRR, no murmur, no edema Gastrointestinal (Abdomen): Inspection/Auscultation: abdomen normal to inspection, + abdomen distended and normal bowel sounds Percussion/Palpation: abdomen soft; abdomen nontender, no guarding and abdomen not rigid Musculoskeletal: no cyanosis or clubbing, extremities motor strength 5/5 Skin: no rashes, warm and dry Neurologic: moves all extremities and awake Psychiatric: Orientation: alert and oriented to person; + uncooperative Results & Data Results & Data ([facility]) Vital Signs (Past 12 Hours) Vital Signs Temp Pulse Pulse Resp BP BP Pulse Ox 09/07/20 11:18 36.6 C 76 18 162/82 H 97 09/07/20 08:00 82 09/07/20 07:08 36.4 C L 79 20 167/75 H 95 09/07/20 04:35 36.6 C 81 20 165/83 H 96 PG Care Time/CCT Total # of Minutes Spent Total Time Spent with Patient: Total time spent is greater than 50% in coordination of care (as documented) at patient's floor/unit and/or counseling patient: Coding Level of Care Code 69411 Subseq Hosp Care Lvl 2 Diagnoses Acute hepatic encephalopathy K72.00 CKD (chronic kidney disease), stage IV N18.4 Esophageal varices without bleeding I85.00 Esophageal varices type: unspecified type Liver cirrhosis K74.60 Hepatic cirrhosis type: unspecified hepatic cirrhosis Ascites presence: without ascites Hypertension I10 Hypertension type: essential hypertension Type 2 diabetes mellitus E11.9; Z79.4 Diabetes mellitus termite control service representative insulin use: with termite control service representative use Diabetes mellitus complication status: without complication GERD (gastroesophageal reflux disease) K21.9 Esophagitis presence: esophagitis presence not specified DVT prophylaxis Z29.9 (1) Esophageal varices without bleeding Esophageal varices type: unspecified type Qualified Code(s): I85.00 - Esophageal varices without bleeding (2) Liver cirrhosis Hepatic cirrhosis type: unspecified hepatic cirrhosis Ascites presence: without ascites Qualified Code(s): K74.60 - Unspecified cirrhosis of liver (3) Hypertension Hypertension type: essential hypertension Qualified Code(s): I10 - Essential (primary) hypertension (4) Type 2 diabetes mellitus Diabetes mellitus termite control service representative insulin use: with termite control service representative use Diabetes mellitus complication status: without complication Qualified Code(s): E11.9 - Type 2 diabetes mellitus without complications; Z79.4 - rn long term care (current) use of insulin (5) GERD (gastroesophageal reflux disease) Esophagitis presence: esophagitis presence not specified Qualified Code(s): K21.9 - Gastro-esophageal reflux disease without esophagitis
[2020-09-07] MEDS ORDERED: ACETAMINOPHEN 500 MG TAB PO PRN (15:05)
[2020-09-07] MEDS ORDERED: CALCIUM CARBONATE 500 MG CHEWABLE TAB PO PRN (15:05)
--- NOTE | 2020-09-07 22:47 | Electrocardiogram Report ---
Test Reason : Blood Pressure : / mmHG Vent. Rate : 066 BPM Atrial Rate : 066 BPM P-R Int : 118 ms QRS Dur : 080 ms QT Int : 414 ms P-R-T Axes : 037 023 -07 degrees QTc Int : 434 ms Normal sinus rhythm with sinus arrhythmia Nonspecific T wave abnormality Abnormal ECG When compared with ECG of 06-SEP-2020 07:57, No significant change was found Confirmed by Bassam Correa ([id number]) on 09/07/2020 10:47:29 PM Referred By: REFERRED SELF Confirmed By:Bassam Correa
[2020-09-08 09:08] LABS: Hematocrit (blood only) 25.8 % (42-52); Hemoglobin 8.1 g/dL (14.0-18.0); Mean Corpuscular Hemoglobin 32.7 pg (25-34); Mean Corpuscular Hgb Conc 31.4 g/dL (32-36); RDW Coefficient of Variation 19.7 % (11.5-14.5); RDW Standard Deviation 75.1 fL (36.4-46.3); Red Blood Count 2.48 M/uL (4.7-6.1); White Blood Count 5.17 K/uL (4.8-10.8)
[2020-09-08 09:18] LABS: INR 1.2 (0.9-1.1); Prothrombin Time 12.5 Seconds (9.0-12.0)
[2020-09-08 09:21] LABS: Mean Platelet Volume 10.9 fL (7.4-10.4); Platelet Count 83 K/uL (130-400)
[2020-09-08 09:34] LABS: BUN Creatinine Ratio 16.1 (10-20); Calcium 8.1 mg/dl (8.5-10.1); Creatinine Clr Calc Pharmacy 27.2 ml/min; Est GFR (Non-African American) 19.8; Magnesium 1.9 mg/dl (1.8-2.4)
[2020-09-08 09:37] LABS: Albumin Globulin Ratio 0.5 (0.9-2); Bilirubin,Total 0.8 mg/dl (0.2-1); Globulin 4.2 gm/dl (2.5-4.0); Total Protein 6.2 gm/dl (6.4-8.2)
[2020-09-08] MEDS: rifAXIMin 550 MG TABLET PO SCH ×2 (11:01→20:37)
[2020-09-08] MEDS: HEPARIN SOD 5,000 UNIT/0.5 ML VIAL SQ SCH ×2 (11:01→20:36)
[2020-09-08] MEDS: FAMOTIDINE 20 MG TAB PO SCH (11:01)
[2020-09-08] MEDS: nadoloL 40 MG TAB PO SCH (11:01)
[2020-09-08] MEDS: LACTULOSE SYRUP 30 GM/45 ML UDP PO SCH ×3 (11:02→20:36)
[2020-09-08] MEDS: INSULIN GLARGINE SOLOSTAR 100 UNITS/ML 3 ML PEN SC SCH (11:04)
[2020-09-08] MEDS: INSULIN ASPART 100 UNITS/ML 3 ML PEN SC SCH ×4 (11:04→20:37)
--- NOTE | 2020-09-08 21:07 | Hospitalist Progress Note ---
Date of Service September 08, 2020 Assessment & Plan (1) Acute hepatic encephalopathy: Due to cirrhosis. - Continue lactulose & rifaximin as tolerating -> Has refused lactulose. - Monitor mental status -> Stable today. Able to wake up and discuss care. He feels like he feels is already tired and weak, so doesn't see what the point of taking the lactulose is. He did get badgered into taking a half-dose yesterday and today. - Consulted ethics on 09/05. End result: Try to get goals of care while he is clear, coherent, cooperative, and capable, then stick with that if he gets encephalopathic. Additionally, can ask brothers for advice. In this case, for me, he is telling me that he wants full care, and that if gets confused, I should put in an NG tube and "clear him up." Brothers were contacted by palliative who also report desire for full medical care. - Can discuss with Dr. Shaffer at senior care about when to discharge. Will have discusion with palliative care on Wednesday, however, this appears to be his baseline. will consider discharging patient within next few days (2) CKD (chronic kidney disease), stage IV: Baseline Cr ~3.0 - 4.0. - Avoid nephrotoxins - Finn - Cr presently at baseline: 3.11 today. (3) Esophageal varices without bleeding: Prior notes indicate a hx of esophageal varices, but without any EGD in our system. - Hemoglobin was at baseline (8.7 on admission), then dropped to 6.7 on 08/27. Received 1 unit PRBCs on 08/27. - Today is 8.3. Stable. - Restart nadolol (4) Liver cirrhosis: Due to HCV. -will consider resumiong diuretics as patient is becoming more swollen. (5) Hypertension: Blood pressure higher today at 160/80. - Restarted nadolol on 09/06 (6) Type 2 diabetes mellitus: A1c was 5.4% in 06/2020. - Continue basal/bolus - Blood sugars have been 150-200 in the last 24 hours. - Glycemic pharmacy following (7) GERD (gastroesophageal reflux disease): Chronic. - Pepcid PO daily (8) DVT prophylaxis: Heparin 5,000 units SQ Q12h Admission and Anticipated Discharge Date Admission Date: August 26, 2020 Subjective Patient reports swelling in his legs and scrotum. Denies any other complaints. Review of Systems Review of Systems: All systems reviewed & are unremarkable except as noted in HPI & below Physical Exam Physical Exam: Constitutional: WD/WN, vitals as above awake, alert Eyes: EOM intact bilaterally; no conjunctival abnormality ENMT: external ear and nose normal, oropharynx normal Neck: trachea midline, no thyromegaly normal visual inspection Respiratory: normal respiratory effort, lungs clear to auscultation no respiratory distress Cardiovascular: RRR, no murmur, no edema Gastrointestinal (Abdomen): Inspection/Auscultation: abdomen normal to inspection, + abdomen distended and normal bowel sounds Percussion/Palpation: abdomen soft; abdomen nontender, no guarding and abdomen not rigid Musculoskeletal: no cyanosis or clubbing, extremities motor strength 5/5 Skin: no rashes, warm and dry/ edmea in lower extremities =2, and edma in scrotum Neurologic: moves all extremities and awake Psychiatric: Orientation: alert, oriented to person and cooperative Results & Data Results & Data ([facility]) Vital Signs (Past 12 Hours) Vital Signs Temp Pulse Pulse Resp BP BP Pulse Ox 09/08/20 19:46 36.9 C 73 18 170/90 H 97 09/08/20 15:32 36.8 C 64 20 187/82 H 94 09/08/20 15:20 79 09/08/20 11:24 37.1 C 69 20 181/80 H 95 PG Care Time/CCT Total # of Minutes Spent Total Time Spent with Patient: Total time spent is greater than 50% in coordination of care (as documented) at patient's floor/unit and/or counseling patient: Coding Level of Care Code 44511 Subseq Hosp Care Lvl 3 Diagnoses Acute hepatic encephalopathy K72.00 CKD (chronic kidney disease), stage IV N18.4 Esophageal varices without bleeding I85.00 Esophageal varices type: unspecified type Liver cirrhosis K74.60 Ascites presence: without ascites Hepatic cirrhosis type: unspecified hepatic cirrhosis Hypertension I10 Hypertension type: essential hypertension Type 2 diabetes mellitus E11.9; Z79.4 Diabetes mellitus complication status: without complication Diabetes mellitus residential insulin use: with residential use GERD (gastroesophageal reflux disease) K21.9 Esophagitis presence: esophagitis presence not specified DVT prophylaxis Z29.9 Time Spent (min) 35 (1) Type 2 diabetes mellitus Diabetes mellitus complication status: without complication Diabetes mellitus receiver dispatcher insulin use: with receiver dispatcher use Qualified Code(s): E11.9 - Type 2 diabetes mellitus without complications; Z79.4 - director of corporate strategy (current) use of insulin (2) Liver cirrhosis Ascites presence: without ascites Hepatic cirrhosis type: unspecified hepatic cirrhosis Qualified Code(s): K74.60 - Unspecified cirrhosis of liver (3) GERD (gastroesophageal reflux disease) Esophagitis presence: esophagitis presence not specified Qualified Code(s): K21.9 - Gastro-esophageal reflux disease without esophagitis (4) Esophageal varices without bleeding Esophageal varices type: unspecified type Qualified Code(s): I85.00 - Esophageal varices without bleeding (5) Hypertension Hypertension type: essential hypertension Qualified Code(s): I10 - Essential (primary) hypertension
[2020-09-09 06:48] LABS: Hematocrit (blood only) 25.6 % (42-52); Mean Corpuscular Hemoglobin 32.4 pg (25-34); Mean Corpuscular Hgb Conc 31.3 g/dL (32-36); Mean Corpuscular Volume 103.6 fL (80-100); RDW Coefficient of Variation 19.3 % (11.5-14.5); RDW Standard Deviation 73.3 fL (36.4-46.3); Red Blood Count 2.47 M/uL (4.7-6.1); White Blood Count 4.29 K/uL (4.8-10.8)
[2020-09-09 07:07] LABS: Mean Platelet Volume 11.4 fL (7.4-10.4); Platelet Count 91 K/uL (130-400)
[2020-09-09 07:15] LABS: BUN Creatinine Ratio 15.7 (10-20); Calcium 8.2 mg/dl (8.5-10.1); Creatinine Clr Calc Pharmacy 28.9 ml/min; Est GFR (African American) 24.4; Potassium 4.1 mmol/L (3.5-5.1)
[2020-09-09 07:44] LABS: Basophils # (auto) 0.01 K/uL (0-0.2); Basophils % (auto) 0.2 %; Eosinophils # (auto) 0.12 K/uL (0-0.5); Eosinophils % (auto) 2.8 %; Lymphocytes # (auto) 0.82 K/uL (1.2-3.4); Lymphocytes % (auto) 19.1 %; Monocytes % (auto) 11.7 %; Neutrophils # (auto) 2.84 K/uL (1.4-6.5); Neutrophils % (auto) 66.2 %
[2020-09-09] MEDS: INSULIN ASPART 100 UNITS/ML 3 ML PEN SC SCH ×4 (08:39→20:38)
[2020-09-09] MEDS: INSULIN GLARGINE SOLOSTAR 100 UNITS/ML 3 ML PEN SC SCH (08:40)
[2020-09-09] MEDS: nadoloL 40 MG TAB PO SCH (08:41)
[2020-09-09] MEDS: rifAXIMin 550 MG TABLET PO SCH ×2 (08:41→20:39)
[2020-09-09] MEDS: FAMOTIDINE 20 MG TAB PO SCH (08:41)
[2020-09-09] MEDS: LACTULOSE SYRUP 30 GM/45 ML UDP PO SCH ×4 (08:42→20:39)
[2020-09-09] MEDS: HEPARIN SOD 5,000 UNIT/0.5 ML VIAL SQ SCH ×2 (08:43→20:39)
[2020-09-09] MEDS: FUROSEMIDE 40 MG TAB PO SCH (10:24)
[2020-09-09] MEDS: SPIRONOLACTONE 100 MG TAB PO SCH (10:25)
[2020-09-09] MEDS ORDERED: DEXTROSE 5% 1,000 ML IV SCH (16:00)
[2020-09-09] MEDS ORDERED: FUROSEMIDE 40 MG in SYRINGE 0 ML IV ONE ×2 (16:30→21:30)
--- NOTE | 2020-09-09 16:43 | XRay Report ---
SINGLE VIEW CHEST CLINICAL HISTORY: Wheezing. FINDINGS: An AP, portable, upright chest radiograph is compared to study dated 08/26/2020. The examinat ion is degraded by portable technique and apical lordotic positioning. The heart is enlarged. There i s pulmonary vascular congestion with evidence of interstitial edema. There are layering pleural effus ions with bibasilar consolidation. No pneumothorax is seen. The bony thorax is grossly intact. IMPRESSION: 1. Cardiomegaly with evidence of congestive failure and interstitial edema. 2. Layering pleural effusions with bibasilar consolidation. ACT 112: Negative or not required by law. Electronically signed by: Juan Antonio Gibbs M.D. 09/09/2020 4:41 PM
--- NOTE | 2020-09-09 20:52 | Hospitalist Progress Note ---
Date of Service September 09, 2020 Assessment & Plan (1) Acute hepatic encephalopathy: Due to cirrhosis. - Continue lactulose & rifaximin as tolerating -> Has refused lactulose. - Monitor mental status -> Stable today. Able to wake up and discuss care. He feels like he feels is already tired and weak, so doesn't see what the point of taking the lactulose is. He did get badgered into taking a half-dose yesterday and today. - Consulted ethics on 09/05. End result: Try to get goals of care while he is clear, coherent, cooperative, and capable, then stick with that if he gets encephalopathic. Additionally, can ask brothers for advice. In this case, for me, he is telling me that he wants full care, and that if gets confused, I should put in an NG tube and "clear him up." Brothers were contacted by palliative who also report desire for full medical care. - Can discuss with Dr. Shaffer at senior living about when to discharge. At baseline (2) CKD (chronic kidney disease), stage IV: Baseline Cr ~3.0 - 4.0. - Avoid nephrotoxins - Finn - Cr presently at baseline: 3.11 today. (3) Esophageal varices without bleeding: Prior notes indicate a hx of esophageal varices, but without any EGD in our system. - Hemoglobin was at baseline (8.7 on admission), then dropped to 6.7 on 08/27. Received 1 unit PRBCs on 08/27. - Today is 8.3. Stable. - Restart nadolol (4) Liver cirrhosis: Due to HCV. -will consider resumiong diuretics as patient is becoming more swollen. (5) Hypertension: Blood pressure higher today at 160/80. - Restarted nadolol on 09/06 (6) Type 2 diabetes mellitus: A1c was 5.4% in 06/2020. - Continue basal/bolus - Blood sugars have been 150-200 in the last 24 hours. - Glycemic pharmacy following (7) GERD (gastroesophageal reflux disease): Chronic. - Pepcid PO daily (8) DVT prophylaxis: Heparin 5,000 units SQ Q12h (9) Anasarca: Due to wrosening edema and SOB, concern that patient is devloping pulmonary edema. Will obtain x ray. Resume diuretics. However, given that patient is also hypernatremic, will need to add D5W. IF PATIENT BECOMES MORE SOB, WILl HOLD FLUIDS. (10) Hypernatremia: as stated above Admission and Anticipated Discharge Date Admission Date: August 26, 2020 Subjective Patient reports feeling short of breath and has sweliing in lower extremities. Review of Systems Review of Systems: All systems reviewed & are unremarkable except as noted in HPI & below Physical Exam Physical Exam: Constitutional: WD/WN, vitals as above awake, alert Eyes: EOM intact bilaterally; no conjunctival abnormality ENMT: external ear and nose normal, oropharynx normal Neck: trachea midline, no thyromegaly normal visual inspection Respiratory: normal respiratory effort, lungs clear to auscultation no respiratory distress Cardiovascular: RRR, no murmur, no edema Gastrointestinal (Abdomen): Inspection/Auscultation: abdomen normal to inspection, + abdomen distended and normal bowel sounds Percussion/Palpation: abdomen soft; abdomen nontender, no guarding and abdomen not rigid Musculoskeletal: no cyanosis or clubbing, extremities motor strength 5/5 Skin: no rashes, warm and dry/ edmea in lower extremities =2, and edma in scrotum Neurologic: moves all extremities and awake Psychiatric: Orientation: alert, oriented to person and cooperative Results & Data Results & Data ([facility]) Vital Signs (Past 12 Hours) Vital Signs Temp Pulse Pulse Resp BP BP Pulse Ox 09/09/20 19:47 36.7 C 64 20 177/111 H 193/80 H 94 09/09/20 14:52 63 09/09/20 14:38 36.7 C 72 22 183/99 H 175/91 H 94 09/09/20 11:32 36.6 C 67 22 175/82 H 93 09/09/20 09:19 79 PG Care Time/CCT Total # of Minutes Spent Total Time Spent with Patient: Total time spent is greater than 50% in coordination of care (as documented) at patient's floor/unit and/or counseling patient: Coding Level of Care Code 44680 Subseq Hosp Care Lvl 2 Diagnoses Acute hepatic encephalopathy K72.00 CKD (chronic kidney disease), stage IV N18.4 Esophageal varices without bleeding I85.00 Esophageal varices type: unspecified type Liver cirrhosis K74.60 Ascites presence: without ascites Hepatic cirrhosis type: unspecified hepatic cirrhosis Hypertension I10 Hypertension type: essential hypertension Type 2 diabetes mellitus E11.9; Z79.4 Diabetes mellitus complication status: without complication Diabetes mellitus buttermaker insulin use: with buttermaker use GERD (gastroesophageal reflux disease) K21.9 Esophagitis presence: esophagitis presence not specified DVT prophylaxis Z29.9 Anasarca R60.1 Hypernatremia E87.0 Time Spent (min) 25 (1) Type 2 diabetes mellitus Diabetes mellitus complication status: without complication Diabetes mellitus buttermaker insulin use: with buttermaker use Qualified Code(s): E11.9 - Type 2 diabetes mellitus without complications; Z79.4 - [facility] (current) use of insulin (2) Liver cirrhosis Ascites presence: without ascites Hepatic cirrhosis type: unspecified hepatic cirrhosis Qualified Code(s): K74.60 - Unspecified cirrhosis of liver (3) GERD (gastroesophageal reflux disease) Esophagitis presence: esophagitis presence not specified Qualified Code(s): K21.9 - Gastro-esophageal reflux disease without esophagitis (4) Esophageal varices without bleeding Esophageal varices type: unspecified type Qualified Code(s): I85.00 - Esophageal varices without bleeding (5) Hypertension Hypertension type: essential hypertension Qualified Code(s): I10 - Essential (primary) hypertension
[2020-09-10 06:20] LABS: Hematocrit (blood only) 26.9 % (42-52); Hemoglobin 8.3 g/dL (14.0-18.0); Mean Corpuscular Hemoglobin 32.2 pg (25-34); Mean Corpuscular Hgb Conc 30.9 g/dL (32-36); Mean Corpuscular Volume 104.3 fL (80-100); RDW Coefficient of Variation 19.1 % (11.5-14.5); RDW Standard Deviation 73.2 fL (36.4-46.3); Red Blood Count 2.58 M/uL (4.7-6.1)
[2020-09-10 06:23] LABS: Mean Platelet Volume 10.9 fL (7.4-10.4); Platelet Count 96 K/uL (130-400)
[2020-09-10 06:50] LABS: BUN Creatinine Ratio 15.7 (10-20); Creatinine Clr Calc Pharmacy 27.1 ml/min; Est GFR (Non-African American) 19.9
[2020-09-10] MEDS: FUROSEMIDE 40 MG TAB PO SCH (08:32)
[2020-09-10] MEDS: rifAXIMin 550 MG TABLET PO SCH ×2 (08:32→20:46)
[2020-09-10] MEDS: nadoloL 40 MG TAB PO SCH (08:32)
[2020-09-10] MEDS: LACTULOSE SYRUP 30 GM/45 ML UDP PO SCH ×3 (08:32→20:46)
[2020-09-10] MEDS: FAMOTIDINE 20 MG TAB PO SCH (08:33)
[2020-09-10] MEDS: HEPARIN SOD 5,000 UNIT/0.5 ML VIAL SQ SCH ×2 (08:33→20:47)
[2020-09-10] MEDS: SPIRONOLACTONE 100 MG TAB PO SCH (08:33)
[2020-09-10] MEDS: INSULIN GLARGINE SOLOSTAR 100 UNITS/ML 3 ML PEN SC SCH (08:33)
[2020-09-10] MEDS: INSULIN ASPART 100 UNITS/ML 3 ML PEN SC SCH ×4 (08:38→20:47)
[2020-09-10] MEDS: hydrALAZINE 10 MG TAB PO SCH ×2 (16:38→20:46)
[2020-09-10] MEDS ORDERED: FUROSEMIDE 20 MG in SYRINGE 0 ML IV ONE (19:00)
--- NOTE | 2020-09-10 21:48 | Hospitalist Progress Note ---
Date of Service September 10, 2020 Assessment & Plan (1) Anasarca: Due to wrosening edema and SOB, concern that patient is devloping pulmonary edema. X-ray showing signs of pulmonary edema. Resumed diurteics on 07/10 and will gradually increase them. Will give 80 mg of PO laisx tomorrw with 200 mg of spironolactone. Patient will have 20 mg of IV lasix with 40 mg of PO lasix today. Patient had multiple doses of lasix the day prior. Had discusion with Nephro the day prior, stated his labs point towards free water deficit. Recommend IV fluids if not edematous. however given that patient is edematous likely due to liver cirrhosis, unsure how much benefit of increasing diuretics. Patient is very complex and is choosing to remain a full code, will discuss with nephro in AM if patient is a dialysis candidate. Patient continues to have hypoalbuminemia and is not actively eating. (2) Acute hepatic encephalopathy: Due to cirrhosis. - Continue lactulose & rifaximin as tolerating -> Has refused lactulose. - Monitor mental status -> Stable today. Able to wake up and discuss care. He feels like he feels is already tired and weak, so doesn't see what the point of taking the lactulose is. He did get badgered into taking a half-dose yesterday and today. - Consulted ethics on 09/05. End result: Try to get goals of care while he is clear, coherent, cooperative, and capable, then stick with that if he gets encephalopathic. Additionally, can ask brothers for advice. In this case, for me, he is telling me that he wants full care, and that if gets confused, I should put in an NG tube and "clear him up." Brothers were contacted by palliative who also report desire for full medical care. - Can discuss with Dr. Shaffer at skilled nursing about when to discharge. At baseline (3) CKD (chronic kidney disease), stage IV: Baseline Cr ~3.0 - 4.0. - Avoid nephrotoxins - Finn - Cr presently at baseline: 3.11 today. (4) Esophageal varices without bleeding: Prior notes indicate a hx of esophageal varices, but without any EGD in our system. - Hemoglobin was at baseline (8.7 on admission), then dropped to 6.7 on 08/27. Received 1 unit PRBCs on 08/27. - Today is 8.3. Stable. - Restart nadolol (5) Liver cirrhosis: Due to HCV. -will consider resumiong diuretics as patient is becoming more swollen. (6) Hypertension: Blood pressure higher today at 160/80. - Restarted nadolol on 09/06 Added hydralazine. (7) Type 2 diabetes mellitus: A1c was 5.4% in 06/2020. - Continue basal/bolus - Blood sugars have been 150-200 in the last 24 hours. - Glycemic pharmacy following (8) GERD (gastroesophageal reflux disease): Chronic. - Pepcid PO daily (9) DVT prophylaxis: Heparin 5,000 units SQ Q12h (10) Hypernatremia: as stated above Admission and Anticipated Discharge Date Admission Date: August 26, 2020 Subjective Patient reports he continues to feel short of breath. He is complaining of swelling of his legs He is stating that he may be interested in HD. Patient though is stating that he is not hungry Review of Systems Review of Systems: All systems reviewed & are unremarkable except as noted in HPI & below Physical Exam Physical Exam: Constitutional: WD/WN, vitals as above awake, alert Eyes: EOM intact bilaterally; no conjunctival abnormality ENMT: external ear and nose normal, oropharynx normal Neck: trachea midline, no thyromegaly normal visual inspection Respiratory: normal respiratory effort, lungs clear to auscultation no respiratory distress Cardiovascular: RRR, no murmur, no edema Gastrointestinal (Abdomen): Inspection/Auscultation: abdomen normal to inspection, + abdomen distended and normal bowel sounds Percussion/Palpation: abdomen soft; abdomen nontender, no guarding and abdomen not rigid Musculoskeletal: no cyanosis or clubbing, extremities motor strength 5/5 Skin: no rashes, warm and dry/ edema in lower extremities +3, and edema in scrotum Neurologic: moves all extremities and awake Psychiatric: Orientation: alert, oriented to person and cooperative Results & Data Results & Data ([facility]) Vital Signs (Past 12 Hours) Vital Signs Temp Pulse Pulse Resp BP BP Pulse Ox 09/10/20 19:06 36.8 C 70 20 170/82 H 96 09/10/20 16:41 75 09/10/20 15:35 36.8 C 60 18 193/92 H 96 09/10/20 15:12 36.5 C 71 18 187/93 H 96 09/10/20 11:19 36.6 C 70 18 176/84 H 96 PG Care Time/CCT Total # of Minutes Spent Total Time Spent with Patient: Total time spent is greater than 50% in coordination of care (as documented) at patient's floor/unit and/or counseling patient: Coding Level of Care Code 78821 Subseq Hosp Care Lvl 3 Diagnoses Anasarca R60.1 Acute hepatic encephalopathy K72.00 CKD (chronic kidney disease), stage IV N18.4 Esophageal varices without bleeding I85.00 Esophageal varices type: unspecified type Liver cirrhosis K74.60 Ascites presence: without ascites Hepatic cirrhosis type: unspecified hepatic cirrhosis Hypertension I10 Hypertension type: essential hypertension Type 2 diabetes mellitus E11.9; Z79.4 Diabetes mellitus complication status: without complication Diabetes mellitus senior living insulin use: with senior living use GERD (gastroesophageal reflux disease) K21.9 Esophagitis presence: esophagitis presence not specified DVT prophylaxis Z29.9 Hypernatremia E87.0 Time Spent (min) 35 (1) Type 2 diabetes mellitus Diabetes mellitus complication status: without complication Diabetes mellitus moth exterminator insulin use: with senior living use Qualified Code(s): E11.9 - Type 2 diabetes mellitus without complications; Z79.4 - terminal operations supervisor (current) use of insulin (2) Liver cirrhosis Ascites presence: without ascites Hepatic cirrhosis type: unspecified hepatic cirrhosis Qualified Code(s): K74.60 - Unspecified cirrhosis of liver (3) GERD (gastroesophageal reflux disease) Esophagitis presence: esophagitis presence not specified Qualified Code(s): K21.9 - Gastro-esophageal reflux disease without esophagitis (4) Esophageal varices without bleeding Esophageal varices type: unspecified type Qualified Code(s): I85.00 - Esophageal varices without bleeding (5) Hypertension Hypertension type: essential hypertension Qualified Code(s): I10 - Essential (primary) hypertension
[2020-09-11] MEDS: nadoloL 40 MG TAB PO SCH (08:41)
[2020-09-11] MEDS: SPIRONOLACTONE 100 MG TAB PO SCH (08:41)
[2020-09-11] MEDS: rifAXIMin 550 MG TABLET PO SCH ×2 (08:41→20:35)
[2020-09-11] MEDS: LACTULOSE SYRUP 30 GM/45 ML UDP PO SCH ×3 (08:41→20:40)
[2020-09-11] MEDS: FAMOTIDINE 20 MG TAB PO SCH (08:41)
[2020-09-11] MEDS: HEPARIN SOD 5,000 UNIT/0.5 ML VIAL SQ SCH ×2 (08:41→20:36)
[2020-09-11] MEDS: FUROSEMIDE 80 MG TAB PO SCH (08:41)
[2020-09-11] MEDS: hydrALAZINE 10 MG TAB PO SCH ×4 (08:42→20:35)
[2020-09-11] MEDS: INSULIN GLARGINE SOLOSTAR 100 UNITS/ML 3 ML PEN SC SCH (08:43)
[2020-09-11] MEDS: INSULIN ASPART 100 UNITS/ML 3 ML PEN SC SCH ×4 (08:44→20:37)
[2020-09-11] MEDS ORDERED: amLODIPine BESYLATE 5 MG TAB PO ONE (09:30)
[2020-09-11 09:49] LABS: Albumin Level 2.1 gm/dl (3.4-5.0); BUN Creatinine Ratio 16.4 (10-20); Bilirubin,Total 0.7 mg/dl (0.2-1); Calcium 8.4 mg/dl (8.5-10.1); Creatinine Clr Calc Pharmacy 27.9 ml/min; Est GFR (African American) 23.8; Est GFR (Non-African American) 20.5; Total Protein 6.7 gm/dl (6.4-8.2)
--- NOTE | 2020-09-11 10:56 | Nephrology Progress Note ---
Date of Service September 11, 2020 Assessment & Plan (1) CKD (chronic kidney disease), stage IV: 65 y o M with stage 4 CKD and end stage liver disease, admitted with AMS with hepatic encephalopathy. Clinically improved with improvement in ammonia with Rifaximin. Renal function relatively stable. Developed progressive anasarca with hypoalbuminemia despite having free water deficit. BP has been elevated on multiple antihypertensives although net negative. --increase Lasix to 80 mg BID, encourage po free water intake --encourage increased protein intake, recommend starting on protein supplement --CECY 44960 units x 1 dose today --recommend physical therapy --considering underlying end-stage liver disease with no possibility for liver transplant, he would not be a good candidate for renal replacement therapy, may not tolerate dialysis and most importantly dialysis would not provide any quality of life. Discussed the dialysis options. Also discussed different adverse effects associated with dialysis, repeated need for multiple procedure including vascular access, need for hospitalization, risk of bacteremia associated with dialysis catheter and others. Recommended conservative management however patient clearly stated that he would like to have dialysis if needed. As per patient request, discussed with his brother Tramaine over telephone ) who agreed with Chicho's decision. --No acute indication for dialysis at this time however, if he remained volume overloaded, renal function worsen or develop electrolyte abnormality , may need RT in next 24 to 48 h. Will follow (2) Hypertensive urgency: (3) Hypernatremia: (4) Metabolic acidosis: (5) Bilateral edema of lower extremity: (6) Anasarca: (7) Acute on chronic kidney failure: Admission and Anticipated Discharge Date Admission Date: August 26, 2020 Phi Valentino was seen and examined in his room this morning. He was awake, alert, answered question appropriately. Reports occasional mild shortness of breath however otherwise has been feeling well. He has been net negative with decent urine output but continues to be significantly volume overloaded. Blood pressure has been running high. Kidney function relatively stable close to his baseline with acceptable electrolyte. Review of Systems Review of Systems: All systems reviewed & are unremarkable except as noted in Subjective Physical Exam Constitutional: WD/WN, vitals as above + ill appearing and + edematous; no acute distress Neck: normal visual inspection Respiratory: normal respiratory effort; no respiratory distress Auscultation: + crackles Cardiovascular: Rate/Rhythm: regular rate and regular rhythm Heart Sounds: normal S1 and normal S2 Extremities: + edema Gastrointestinal (Abdomen): Inspection/Auscultation: + abdomen distended and normal bowel sounds Percussion/Palpation: abdomen soft; abdomen nontender, no guarding and abdomen not rigid Skin: + ulcer and + skin tightening Neurologic: moves all extremities and awake; no focal motor deficits and not confused Results & Data ([facility]) Vital Signs (Past 12 Hours) Vital Signs Temp Pulse Pulse Resp BP BP Pulse Ox 09/11/20 07:01 36.3 C L 72 18 203/89 H 93 09/11/20 04:04 36.6 C 67 18 200/98 H 93 09/11/20 01:19 68 193/95 H 09/11/20 00:50 77 09/10/20 23:51 36.7 C 73 18 194/83 H 95 PG Care Time/CCT Total # of Minutes Spent Total Time Spent with Patient: Total time spent is greater than 50% in coordi nation of care (as documented) at patient's floor/unit and/or counseling patient: Coding Level of Care Code 02445 Subseq Hosp Care Lvl 3 Diagnoses CKD (chronic kidney disease), stage IV N18.4 Hypertensive urgency I16.0 Hypernatremia E87.0 Metabolic acidosis E87.2 Bilateral edema of lower extremity R60.0 Anasarca R60.1 Acute on chronic kidney failure N17.9; N18.9
--- NOTE | 2020-09-11 11:12 | Hospitalist Progress Note ---
Date of Service September 11, 2020 Assessment & Plan (1) Anasarca: This week patient has been having worsening edema which has aman causing pulmonary edema. Resumed diuretics on 07/10 and will gradually increase them. Today will be first dose of 80 mg of PO lasix with 200 mg of spironolactone. If he continues to tolerate this, may consider increase 300 mg of spironolactone and lasix 120 mg PO daily D/W nephro, may consider dialysis in the future, however given his history of liver cirrhosis, this treatment may be futile. Patient is very complex and is choosing to remain a full code. Patient continues to have hypoalbuminemia and is not actively eating. Protein supplements remain ordered. (2) Acute hepatic encephalopathy: Due to cirrhosis. - Continue lactulose & rifaximin as tolerating -> Has refused lactulose. - Monitor mental status -> Stable today. Able to wake up and discuss care. He feels like he feels is already tired and weak, so doesn't see what the point of taking the lactulose is. He did get badgered into taking a half-dose yesterday and today. - Consulted ethics on 09/05. End result: Try to get goals of care while he is clear, coherent, cooperative, and capable, then stick with that if he gets encephalopathic. Additionally, can ask brothers for advice. In this case, for me, he is telling me that he wants full care, and that if gets confused, I should put in an NG tube and "clear him up." Brothers were contacted by becka bond who also report desire for full medical care. - Can discuss with Dr. Shaffer at [facility] about when to discharge. At baseline (3) CKD (chronic kidney disease), stage IV: Baseline Cr ~3.0 - 4.0. - Avoid nephrotoxins - Finn - Cr presently at baseline. (4) Esophageal varices without bleeding: Prior notes indicate a hx of esophageal varices, but without any EGD in our system. - Hemoglobin was at baseline (8.7 on admission), then dropped to 6.7 on 08/27. Received 1 unit PRBCs on 08/27. - Today is 9.4. Stable. - Restart nadolol (5) Liver cirrhosis: Due to HCV. -will consider resumiong diuretics as patient is becoming more swollen. (6) Hypertension: Blood pressure higher today at 160/80. - Restarted nadolol on 09/06 Added hydralazine. (7) Type 2 diabetes mellitus: A1c was 5.4% in 06/2020. - Continue basal/bolus - Blood sugars have been 150-200 in the last 24 hours. - Glycemic pharmacy following (8) GERD (gastroesophageal reflux disease): Chronic. - Pepcid PO daily (9) DVT prophylaxis: Heparin 5,000 units SQ Q12h (10) Hypernatremia: as stated above Admission and Anticipated Discharge Date Admission Date: August 26, 2020 Subjective Patient appears somewhat more drowsy today. He has been going back and forth if he wants to continue treatment or go back to [facility]. Patient appears less short of breath today. Review of Systems Review of Systems: All systems reviewed & are unremarkable except as noted in HPI & below Physical Exam Physical Exam: Constitutional: WD/WN, vitals as above awake, alert Eyes: EOM intact bilaterally; no conjunctival abnormality ENMT: external ear and nose normal, oropharynx normal Neck: trachea midline, no thyromegaly normal visual inspection Respiratory: normal respiratory effort, lungs clear to auscultation no respiratory distress Cardiovascular: RRR, no murmur, no edema Gastrointestinal (Abdomen): Inspection/Auscultation: abdomen normal to inspection, + abdomen distended and normal bowel sounds Percussion/Palpation: abdomen soft; abdomen nontender, no guarding and abdomen not rigid Musculoskeletal: no cyanosis or clubbing, extremities motor strength 5/5 Skin: no rashes, warm and dry/ edema in lower extremities +3, and edema in scrotum Neurologic: moves all extremities and awake Psychiatric: Orientation: alert, oriented to person and cooperative Results & Data Results & Data ([facility]) Vital Signs (Past 12 Hours) Vital Signs Temp Pulse Pulse Resp BP BP Pulse Ox 09/11/20 07:01 36.3 C L 72 18 203/89 H 93 09/11/20 04:04 36.6 C 67 18 200/98 H 93 09/11/20 01:19 68 193/95 H 09/11/20 00:50 77 09/10/20 23:51 36.7 C 73 18 194/83 H 95 PG Care Time/CCT Total # of Minutes Spent Total Time Spent with Patient: Total time spent is greater than 50% in coordination of care (as documented) at patient's floor/unit and/or counseling patient: Coding Level of Care Code 22804 Subseq Hosp Care Lvl 3 Diagnoses Anasarca R60.1 Acute hepatic encephalopathy K72.00 CKD (chronic kidney disease), stage IV N18.4 Esophageal varices without bleeding I85.00 Esophageal varices type: unspecified type Liver cirrhosis K74.60 Ascites presence: without ascites Hepatic cirrhosis type: unspecified hepatic cirrhosis Hypertension I10 Hypertension type: essential hypertension Type 2 diabetes mellitus E11.9; Z79.4 Diabetes mellitus complication status: without complication Diabetes mellitus nursing home insulin use: with 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 contractor 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 GERD (gastroesophageal reflux disease) K21.9 Esophagitis presence: esophagitis presence not specified DVT prophylaxis Z29.9 Hypernatremia E87.0 Time Spent (min) 35 (1) Type 2 diabetes mellitus Diabetes mellitus complication status: without complication Diabetes mellitus hauling contractor insulin use: with nursing home use Qualified Code(s): E11.9 - Type 2 diabetes mellitus without complications; Z79.4 - 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 insulin (2) Liver cirrhosis Ascites presence: without ascites Hepatic cirrhosis type: unspecified hepatic cirrhosis Qualified Code(s): K74.60 - Unspecified cirrhosis of liver (3) GERD (gastroesophageal reflux disease) Esophagitis presence: esophagitis presence not specified Qualified Code(s): K21.9 - Gastro-esophageal reflux disease without esophagitis (4) Esophageal varices without bleeding Esophageal varices type: unspecified type Qualified Code(s): I85.00 - Esophageal varices without bleeding (5) Hypertension Hypertension type: essential hypertension Qualified Code(s): I10 - Essential (primary) hypertension
[2020-09-11 11:14] LABS: Hematocrit (blood only) 29.5 % (42-52); Hemoglobin 9.4 g/dL (14.0-18.0); Mean Corpuscular Hgb Conc 31.9 g/dL (32-36); Mean Corpuscular Volume 103.5 fL (80-100); RDW Coefficient of Variation 18.6 % (11.5-14.5); RDW Standard Deviation 70.6 fL (36.4-46.3); Red Blood Count 2.85 M/uL (4.7-6.1); White Blood Count 3.83 K/uL (4.8-10.8)
[2020-09-11 11:19] LABS: Mean Platelet Volume 11.2 fL (7.4-10.4); Platelet Count 98 K/uL (130-400)
[2020-09-11 11:29] LABS: Potassium 4.4 mmol/L (3.5-5.1)
[2020-09-11 11:34] LABS: Bilirubin Direct 0.3 mg/dl (0-0.2)
[2020-09-11] MEDS ORDERED: EPOETIN ALFA 20,000 UNITS/ML VIAL SQ ONE (12:00)
[2020-09-11] MEDS: SODIUM BICARBONATE 650 MG TAB PO SCH ×2 (12:28→20:35)
[2020-09-12 06:01] LABS: Hematocrit (blood only) 27.7 % (42-52); Hemoglobin 8.6 g/dL (14.0-18.0); Mean Platelet Volume 10.5 fL (7.4-10.4); Platelet Count 113 K/uL (130-400); RDW Coefficient of Variation 18.6 % (11.5-14.5); RDW Standard Deviation 70.3 fL (36.4-46.3); Red Blood Count 2.69 M/uL (4.7-6.1)
[2020-09-12 06:41] LABS: BUN Creatinine Ratio 16.8 (10-20); Calcium 8.1 mg/dl (8.5-10.1); Creatinine Clr Calc Pharmacy 26.7 ml/min; Est GFR (African American) 22.5; Est GFR (Non-African American) 19.4; Phosphorus 4.3 mg/dl (2.5-4.9); Potassium 4.6 mmol/L (3.5-5.1)
[2020-09-12] MEDS: hydrALAZINE 10 MG TAB PO SCH ×4 (07:47→20:17)
[2020-09-12] MEDS: rifAXIMin 550 MG TABLET PO SCH ×2 (07:47→20:17)
[2020-09-12] MEDS: FAMOTIDINE 20 MG TAB PO SCH (07:48)
[2020-09-12] MEDS: nadoloL 40 MG TAB PO SCH (07:48)
[2020-09-12] MEDS: FUROSEMIDE 80 MG TAB PO SCH (07:48)
[2020-09-12] MEDS: SPIRONOLACTONE 100 MG TAB PO SCH (07:48)
[2020-09-12] MEDS: SODIUM BICARBONATE 650 MG TAB PO SCH ×2 (07:48→20:17)
[2020-09-12] MEDS: LACTULOSE SYRUP 30 GM/45 ML UDP PO SCH ×3 (07:49→20:17)
[2020-09-12] MEDS: HEPARIN SOD 5,000 UNIT/0.5 ML VIAL SQ SCH ×2 (07:49→20:17)
[2020-09-12] MEDS: INSULIN GLARGINE SOLOSTAR 100 UNITS/ML 3 ML PEN SC SCH (07:50)
[2020-09-12] MEDS: INSULIN ASPART 100 UNITS/ML 3 ML PEN SC SCH ×4 (07:51→20:25)
[2020-09-12] MEDS ORDERED: FUROSEMIDE 80 MG TAB PO SCH (09:00)
--- NOTE | 2020-09-12 10:41 | Nephrology Progress Note ---
Date of Service September 12, 2020 Assessment & Plan (1) CKD (chronic kidney disease), stage IV: 65 y o M with stage 4 CKD and end stage liver disease, admitted with AMS with hepatic encephalopathy. Clinically improved with improvement in ammonia with Rifaximin. MELD score 19. Renal function relatively stable. Hb low, received Venofer and CECY on 09/11/20 Developed progressive anasarca with hypoalbuminemia despite having free water deficit. BP has been elevated on multiple antihypertensives although net negative. --continue Lasix to 80 mg BID, encourage po free water intake --encourage increased protein intake, recommend starting on protein supplement --recommend physical therapy --considering underlying end-stage liver disease with no possibility for liver transplant, he would not be a good candidate for renal replacement therapy, may not tolerate dialysis and most importantly dialysis would not provide any quality of life. Discussed the dialysis options. Also discussed different adverse effects associated with dialysis, repeated need for multiple procedure including vascular access, need for hospitalization, risk of bacteremia associated with dialysis catheter and others. Recommended conservative management however patient clearly stated that he would like to have dialysis if needed. As per patient request, discussed with his brother Tramaine over telephone ) who agreed with Chicho's decision. --No acute indication for dialysis at this time however, if he remained volume overloaded, renal function worsen or develop electrolyte abnormality , may need AGRICULTURAL SCIENCE PROFESSOR in next 24 to 48 h. Will follow Admission and Anticipated Discharge Date Admission Date: August 26, 2020 Subjective Chicho was seen and examined in his room this morning. He was more drowsy and lathergic this morning, but answered some question appropriately. PO intake has been poor. Low urine output at around 650 ml, continues to be significantly volume overloaded. Blood pressure improved. Kidney function relatively stable close to his baseline with acceptable electrolyte. Review of Systems Review of Systems: Other Physical Exam Constitutional: WD/WN, vitals as above + ill appearing and + edematous; no acute distress Neck: normal visual inspection Respiratory: normal respiratory effort; no respiratory distress Auscultation: + crackles Cardiovascular: Rate/Rhythm: regular rate and regular rhythm Heart Sounds: normal S1 and normal S2 Extremities: + edema Gastrointestinal (Abdomen): Inspection/Auscultation: + abdomen distended and normal bowel sounds Percussion/Palpation: abdomen soft; abdomen nontender, no guarding and abdomen not rigid Skin: + ulcer and + skin tightening Neurologic: moves all extremities and awake; no focal motor deficits and not confused Results & Data ([facility]) Vital Signs (Past 12 Hours) Vital Signs Temp Pulse Pulse Resp BP Pulse Ox 09/12/20 07:13 37.1 C 77 20 162/75 H 90 09/12/20 05:40 36.4 C L 09/12/20 05:09 35.6 C L 09/12/20 04:30 35.5 C L 09/12/20 04:00 35.5 C L 68 18 169/91 H 92 09/12/20 03:43 34.9 C L 09/12/20 03:00 34.5 C L 09/12/20 02:17 34.3 C L 09/12/20 01:45 34.6 C L 09/12/20 01:14 34.7 C L 09/11/20 23:00 34.6 C L 70 18 176/77 H 99 09/11/20 22:52 67 PG Care Time/CCT Total # of Minutes Spent Total Time Spent with Patient: Total time spent is greater than 50% in coordination of care (as documented) at patient's floor/unit and/or counseling patient: Coding Level of Care Code 51061 Subseq Hosp Care Lvl 3 Diagnoses CKD (chronic kidney disease), stage IV N18.4
--- NOTE | 2020-09-12 22:28 | Hospitalist Progress Note ---
Date of Service September 12, 2020 Assessment & Plan (1) Anasarca: This week patient has been having worsening edema which has aman causing pulmonary edema. Resumed diuretics on 07/10 and will gradually increase them. Today will be second dose of 80 mg of PO lasix with 200 mg of spironolactone. If he continues to tolerate this and net fluid loss remains low, may consider increase 300 mg of spironolactone and lasix 120 mg PO daily. Appears though that net fluid balance has aman about close to 1 liter in past 24 houts. D/W nephro, may consider dialysis in the future, however given his history of liver cirrhosis, this treatment may be futile. MELD score is 19. Patient is very complex and is choosing to remain a full code. Patient continues to have hypoalbuminemia and is not actively eating. Protein supplements remain ordered. (2) Acute hepatic encephalopathy: Due to cirrhosis. - Continue lactulose & rifaximin as tolerating -> Has refused lactulose. - Monitor mental status -> Stable today. Able to wake up and discuss care. He feels like he feels is already tired and weak, so doesn't see what the point of taking the lactulose is. He did get badgered into taking a half-dose yesterday and today. - Consulted ethics on 09/05. End result: Try to get goals of care while he is clear, coherent, cooperative, and capable, then stick with that if he gets encephalopathic. Additionally, can ask brothers for advice. In this case, for me, he is telling me that he wants full care, and that if gets confused, I should put in an NG tube and "clear him up." Brothers were contacted by palliative who also report desire for full medical care. - Can discuss with Dr. Shaffer at [facility] about when to discharge. At baseline (3) CKD (chronic kidney disease), stage IV: Baseline Cr ~3.0 - 4.0. - Avoid nephrotoxins - Finn - Cr presently at baseline. (4) Esophageal varices without bleeding: Prior notes indicate a hx of esophageal varices, but without any EGD in our system. - Hemoglobin was at baseline (8.7 on admission), then dropped to 6.7 on 08/27. Received 1 unit PRBCs on 08/27. - Stable. - Restarted nadolol (5) Liver cirrhosis: Due to HCV. -will consider resumiong diuretics as patient is becoming more swollen. (6) Hypertension: Blood pressure better controlled today with spironolactone and hydralazine.. - Restarted nadolol on 09/06 (7) Type 2 diabetes mellitus: A1c was 5.4% in 06/2020. - Continue basal/bolus - Blood sugars have been 150-200 in the last 24 hours. - Glycemic pharmacy following (8) GERD (gastroesophageal reflux disease): Chronic. - Pepcid PO daily (9) DVT prophylaxis: Heparin 5,000 units SQ Q12h (10) Hypernatremia: as stated above Admission and Anticipated Discharge Date Admission Date: August 26, 2020 Subjective Patient reports no new complaints at this time. Review of Systems Review of Systems: All systems reviewed & are unremarkable except as noted in HPI & below Physical Exam Physical Exam: Constitutional: WD/WN, vitals as above awake, alert Eyes: EOM intact bilaterally; no conjunctival abnormality ENMT: external ear and nose normal, oropharynx normal Neck: trachea midline, no thyromegaly normal visual inspection Respiratory: normal respiratory effort, lungs clear to auscultation no respiratory distress Cardiovascular: RRR, no murmur, no edema Gastrointestinal (Abdomen): Inspection/Auscultation: abdomen normal to inspection, + abdomen distended and normal bowel sounds Percussion/Palpation: abdomen soft; abdomen nontender, no guarding and abdomen not rigid Musculoskeletal: no cyanosis or clubbing, extremities motor strength 5/5 Skin: no rashes, warm and dry/ edema in lower extremities +3, and edema in scrotum Neurologic: moves all extremities and awake Psychiatric: Orientation: alert, oriented to person and cooperative Results & Data Results & Data ([facility]) Vital Signs (Past 12 Hours) Vital Signs Temp Pulse Pulse Resp BP BP Pulse Ox 09/12/20 19:00 36.5 C 68 20 171/75 H 93 09/12/20 15:27 36.3 C L 72 18 150/73 H 94 09/12/20 14:55 78 09/12/20 11:43 36.4 C L 69 18 156/74 H 94 PG Care Time/CCT Total # of Minutes Spent Total Time Spent with Patient: Total time spent is greater than 50% in coordination of care (as documented) at patient's floor/unit and/or counseling patient: Coding Level of Care Code 41225 Subs Hosp Care Lvl 3 Diagnoses Anasarca R60.1 Acute hepatic encephalopathy K72.00 CKD (chronic kidney disease), stage IV N18.4 Esophageal varices without bleeding I85.00 Esophageal varices type: unspecified type Liver cirrhosis K74.60 Ascites presence: without ascites Hepatic cirrhosis type: unspecified hepatic cirrhosis Hypertension I10 Hypertension type: essential hypertension Type 2 diabetes mellitus E11.9; Z79.4 Diabetes mellitus complication status: without complication Diabetes mellitus party host/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60 - Unspecified cirrhosis of liver (3) GERD (gastroesophageal reflux disease) Esophagitis presence: esophagitis presence not specified Qualified Code(s): K21.9 - Gastro-esophageal reflux disease without esophagitis (4) Esophageal varices without bleeding Esophageal varices type: unspecified type Qualified Code(s): I85.00 - Esophageal varices without bleeding (5) Hypertension Hypertension type: essential hypertension Qualified Code(s): I10 - Essential (primary) hypertension
[2020-09-13 06:47] LABS: Hematocrit (blood only) 27.3 % (42-52); Hemoglobin 8.5 g/dL (14.0-18.0); Mean Corpuscular Hemoglobin 32.2 pg (25-34); Mean Corpuscular Hgb Conc 31.1 g/dL (32-36); Mean Corpuscular Volume 103.4 fL (80-100); Mean Platelet Volume 10.4 fL (7.4-10.4); Platelet Count 106 K/uL (130-400); RDW Standard Deviation 71.8 fL (36.4-46.3); Red Blood Count 2.64 M/uL (4.7-6.1); White Blood Count 3.43 K/uL (4.8-10.8)
[2020-09-13 07:08] LABS: Albumin Level 2.1 gm/dl (3.4-5.0); BUN Creatinine Ratio 16.1 (10-20); Calcium 8.4 mg/dl (8.5-10.1); Creatinine Clr Calc Pharmacy 24.4 ml/min; Est GFR (African American) 20.3; Est GFR (Non-African American) 17.5; Phosphorus 4.3 mg/dl (2.5-4.9); Potassium 4.5 mmol/L (3.5-5.1)
[2020-09-13] MEDS: HEPARIN SOD 5,000 UNIT/0.5 ML VIAL SQ SCH ×2 (08:00→20:27)
[2020-09-13] MEDS: LACTULOSE SYRUP 30 GM/45 ML UDP PO SCH ×3 (08:01→20:25)
[2020-09-13] MEDS: rifAXIMin 550 MG TABLET PO SCH ×2 (08:01→20:29)
[2020-09-13] MEDS: SODIUM BICARBONATE 650 MG TAB PO SCH ×2 (08:01→20:28)
[2020-09-13] MEDS: SPIRONOLACTONE 100 MG TAB PO SCH (08:02)
[2020-09-13] MEDS: hydrALAZINE 10 MG TAB PO SCH ×4 (08:02→20:27)
[2020-09-13] MEDS: nadoloL 40 MG TAB PO SCH (08:02)
[2020-09-13] MEDS: FAMOTIDINE 20 MG TAB PO SCH (08:02)
[2020-09-13] MEDS: INSULIN GLARGINE SOLOSTAR 100 UNITS/ML 3 ML PEN SC SCH (08:03)
[2020-09-13] MEDS: INSULIN ASPART 100 UNITS/ML 3 ML PEN SC SCH ×4 (08:03→20:27)
[2020-09-13] MEDS ORDERED: FUROSEMIDE 80 MG TAB PO SCH (09:00)
[2020-09-13] MEDS: BUMETANIDE 2 MG in SYRINGE 0 ML IV SCH ×2 (11:09→17:27)
[2020-09-13] MEDS: DEXTROSE 5% 1,000 ML IV SCH ×2 (11:10→23:57)
--- NOTE | 2020-09-13 14:57 | Nephrology Progress Note ---
Date of Service September 13, 2020 Assessment & Plan (1) CKD (chronic kidney disease), stage IV: 65 y o M with stage 4 CKD and end stage liver disease, admitted with AMS with hepatic encephalopathy. Clinically improved with improvement in ammonia with Rifaximin. MELD score 19. Renal function relatively stable. Hb low, received Venofer and CECY on 09/11/20 Developed progressive anasarca with hypoalbuminemia despite having free water deficit. BP has been elevated on multiple antihypertensives although net negative. Renal function continues to worsen. --change diuretics to Bumex 1 mg IV twice a day --has as p.o. intake has been really low, Hypernatremia with free water deficit, will start on D5W at 75 mL/hour --as renal function progressively worsening, remained significantly volume overloaded, will start on dialysis after placement of tunneled dialysis catheter either over the weekend or Wednesday. Considering underlying end-stage liver disease with no possibility for liver transplant, he would not be a good candidate for renal replacement therapy, may not tolerate dialysis and most importantly dialysis would not provide any quality of life. Discussed the dialysis options. Also discussed different adverse effects associated with dialysis, repeated need for multiple procedure including vascular access, need for hospitalization, risk of bacteremia associated with dialysis catheter and others. Recommended conservative management however patient clearly stated that he would like to have dialysis if needed. As per patient request, discussed with his brother Tramaine over telephone ) who agreed with Chicho's decision. --encourage increased protein intake, recommend starting on protein supplement --recommend physical therapy Will follow Admission and Anticipated Discharge Date Admission Date: August 26, 2020 Phi Valentino was seen and examined in his room this morning. He was more awake and alert this morning. PO intake remained low. UO slightly improved on diuretic however continues to be significantly volume overloaded. Blood pressure remained elevated. Renal function has been progressively worsening, electrolyte remained relatively acceptable. Review of Systems Review of Systems: All systems reviewed & are unremarkable except as noted in Subjective Physical Exam Constitutional: WD/WN, vitals as above + ill appearing and + edematous; no acute distress Neck: normal visual inspection Respiratory: normal respiratory effort; no respiratory distress Auscultation: + crackles Cardiovascular: Rate/Rhythm: regular rate and regular rhythm Heart Sounds: normal S1 and normal S2 Extremities: + edema Gastrointestinal (Abdomen): Inspection/Auscultation: + abdomen distended and normal bowel sounds Percussion/Palpation: abdomen soft; abdomen nontender, no guarding and abdomen not rigid Skin: + ulcer and + skin tightening Neurologic: moves all extremities and awake; no focal motor deficits and not confused Results & Data ([facility]) Vital Signs (Past 12 Hours) Vital Signs Temp Pulse Pulse Resp BP Pulse Ox 09/13/20 11:17 36.4 C L 71 20 175/82 H 91 09/13/20 08:00 36.4 C L 80 09/13/20 07:35 73 20 157/74 H 93 09/13/20 05:47 36.4 C L 09/13/20 05:01 36 C L 09/13/20 04:34 35.7 C L 09/13/20 04:27 35.8 C L 09/13/20 04:00 36.9 C 67 18 152/68 H 94 09/13/20 03:45 35.6 C L 09/13/20 03:16 35.3 C L PG Care Time/CCT Total # of Minutes Spent Total Time Spent with Patient: Total time spent is greater than 50% in coordination of care (as documented) at patient's floor/unit and/or counseling patient: Coding Level of Care Code 29813 Subseq Hosp Care Lvl 3 Diagnoses CKD (chronic kidney disease), stage IV N18.4
--- NOTE | 2020-09-13 15:33 | Communication Note ---
Date of Service: September 13, [address] permcath wednesday at 0800
--- NOTE | 2020-09-13 16:31 | Hospitalist Progress Note ---
Date of Service September 13, 2020 Assessment & Plan (1) Acute hepatic encephalopathy: Due to cirrhosis. - Continue lactulose & rifaximin as tolerating -> Has refused lactulose. - Monitor mental status -> Stable today. Able to wake up and discuss care. He feels like he feels is already tired and weak, so doesn't see what the point of taking the lactulose is. He did get badgered into taking a half-dose yesterday and today. - Stable today. (2) CKD (chronic kidney disease), stage IV: Baseline Cr ~3.0 - 4.0. - Avoid nephrotoxins - Finn - Cr presently at baseline: 3.44 today. - Plan for Permacath placement on Wednesday with Dr. Matamoros. (3) Esophageal varices without bleeding: Prior notes indicate a hx of esophageal varices, but without any EGD in our system. - Hemoglobin was at baseline (8.7 on admission), then dropped to 6.7 on 08/27. Received 1 unit PRBCs on 08/27. - Today is 8.5. Stable. - Restart nadolol (4) Hypertension: Blood pressure higher today at 160/80. - Restarted nadolol on 09/06 - Started hydralazine 10 mg QID & spironolactone 200 mg PO QAM (5) Liver cirrhosis: Due to HCV. - Hold Bumex and spironolactone (6) Type 2 diabetes mellitus: A1c was 5.4% in 06/2020. - Continue basal/bolus - Blood sugars have been 130-150 in the last 24 hours. - Glycemic pharmacy following (7) GERD (gastroesophageal reflux disease): Chronic. - Pepcid PO daily (8) DVT prophylaxis: Heparin 5,000 units SQ Q12h Admission and Anticipated Discharge Date Admission Date: August 26, 2020 Subjective Doing fine today. Reports his breathing is intermittently good/bad. Reports no fevers/chills, chest pain, abdominal pain, nausea, or vomiting. Physical Exam Constitutional: WD/WN, vitals as above + lethargic Eyes: EOM intact bilaterally; no conjunctival abnormality ENMT: external ear and nose normal, oropharynx normal Neck: trachea midline, no thyromegaly normal visual inspection Respiratory: normal respiratory effort, lungs clear to auscultation no respiratory distress Cardiovascular: RRR, no murmur, no edema Gastrointestinal (Abdomen): Inspection/Auscultation: abdomen normal to inspection, + abdomen distended and normal bowel sounds Percussion/Palpation: abdomen soft; abdomen nontender, no guarding and abdomen not rigid Musculoskeletal: no cyanosis or clubbing, extremities motor strength 5/5 Skin: no rashes, warm and dry Neurologic: moves all extremities and awake Psychiatric: Orientation: alert and oriented to person; + uncooperative Results & Data Results & Data ([facility]) Vital Signs (Past 12 Hours) Vital Signs Temp Pulse Pulse Resp BP Pulse Ox 09/13/20 15:10 36.4 C L 69 20 171/83 H 95 09/13/20 11:17 36.4 C L 71 20 175/82 H 91 09/13/20 08:00 36.4 C L 80 09/13/20 07:35 73 20 157/74 H 93 09/13/20 05:47 36.4 C L 09/13/20 05:01 36 C L 09/13/20 04:34 35.7 C L 09/13/20 04:27 35.8 C L PG Care Time/CCT Total # of Minutes Spent Total Time Spent with Patient: Total time spent is greater than 50% in coordination of care (as documented) at patient's floor/unit and/or counseling patient: Coding Level of Care Code 32356 Subseq Hosp Care Lvl 2 Diagnoses Acute hepatic encephalopathy K72.00 CKD (chronic kidney disease), stage IV N18.4 Esophageal varices without bleeding I85.00 Esophageal varices type: unspecified type Hypertension I10 Hypertension type: essential hypertension Liver cirrhosis K74.60 Hepatic cirrhosis type: unspecified hepatic cirrhosis Ascites presence: without ascites Type 2 diabetes mellitus E11.9; Z79.4 Diabetes mellitus intermission coordinator insulin use: with [facility] use Diabetes mellitus complication status: without complication GERD (gastroesophageal reflux disease) K21.9 Esophagitis presence: esophagitis presence not specified DVT prophylaxis Z29.9 (1) Esophageal varices without bleeding Esophageal varices type: unspecified type Qualified Code(s): I85.00 - Esophageal varices without bleeding (2) Liver cirrhosis Hepatic cirrhosis type: unspecified hepatic cirrhosis Ascites presence: without ascites Qualified Code(s): K74.60 - Unspecified cirrhosis of liver (3) Hypertension Hypertension type: essential hypertension Qualified Code(s): I10 - Essential (primary) hypertension (4) Type 2 diabetes mellitus Diabetes mellitus intermission coordinator insulin use: with intermission coordinator use Diabetes mellitus complication status: without complication Qualified Code(s): E11.9 - Type 2 diabetes mellitus without complications; Z79.4 - [facility] (current) use of insulin (5) GERD (gastroesophageal reflux disease) Esophagitis presence: esophagitis presence not specified Qualified Code(s): K21.9 - Gastro-esophageal reflux disease without esophagitis
[2020-09-13] MEDS ORDERED: hydrALAZINE HCL 20 MG/ML VIAL IV PRN (19:19)
[2020-09-14 07:28] LABS: Hematocrit (blood only) 28.9 % (42-52); Hemoglobin 8.9 g/dL (14.0-18.0); Mean Corpuscular Hemoglobin 32.6 pg (25-34); Mean Corpuscular Hgb Conc 30.8 g/dL (32-36); Mean Corpuscular Volume 105.9 fL (80-100); Mean Platelet Volume 10.4 fL (7.4-10.4); Platelet Count 117 K/uL (130-400); RDW Coefficient of Variation 18.9 % (11.5-14.5); RDW Standard Deviation 73.3 fL (36.4-46.3); Red Blood Count 2.73 M/uL (4.7-6.1)
[2020-09-14 07:53] LABS: Albumin Level 2.2 gm/dl (3.4-5.0); BUN Creatinine Ratio 14.5 (10-20); Calcium 8.2 mg/dl (8.5-10.1); Creatinine Clr Calc Pharmacy 23.2 ml/min; Est GFR (African American) 19.2; Est GFR (Non-African American) 16.5; Phosphorus 4.3 mg/dl (2.5-4.9); Potassium 4.1 mmol/L (3.5-5.1)
[2020-09-14] MEDS: FAMOTIDINE 20 MG TAB PO SCH (08:06)
[2020-09-14] MEDS: nadoloL 40 MG TAB PO SCH (08:07)
[2020-09-14] MEDS: BUMETANIDE 2 MG in SYRINGE 0 ML IV SCH ×2 (08:07→17:21)
[2020-09-14] MEDS: rifAXIMin 550 MG TABLET PO SCH ×2 (08:07→21:50)
[2020-09-14] MEDS: SPIRONOLACTONE 100 MG TAB PO SCH (08:07)
[2020-09-14] MEDS: SODIUM BICARBONATE 650 MG TAB PO SCH ×2 (08:08→21:50)
[2020-09-14] MEDS: LACTULOSE SYRUP 30 GM/45 ML UDP PO SCH (08:08)
[2020-09-14] MEDS: hydrALAZINE 10 MG TAB PO SCH ×4 (08:08→21:50)
[2020-09-14] MEDS: HEPARIN SOD 5,000 UNIT/0.5 ML VIAL SQ SCH ×2 (08:09→21:07)
[2020-09-14] MEDS: INSULIN GLARGINE SOLOSTAR 100 UNITS/ML 3 ML PEN SC SCH (08:11)
[2020-09-14] MEDS: INSULIN ASPART 100 UNITS/ML 3 ML PEN SC SCH ×4 (08:14→21:07)
[2020-09-14 09:55] LABS: Hepatitis B Surface Ab Quant < 3.10 mIU/mL (>or=10mIU/mL Immune); Hepatitis B Surface Antibody Non-Immune
[2020-09-14 10:06] LABS: Hepatitis B Surface Antigen Neg (Neg)
--- NOTE | 2020-09-14 12:09 | Nephrology Progress Note ---
Date of Service September 14, 2020 Assessment & Plan (1) CKD (chronic kidney disease), stage IV: -- Chicho has advanced CKD and multiple recent episodes of REDD. -- He has been approaching need for [employer]. -- Unfortunately, this is a very complicated case given other underlying medical conditions (frailty, baseline poor functional status, cirrhosis complicated by HE, and possible underlying dementia or residual evidence of hypoxic brain injury). These concerns have all previously been well documented in this chart. -- Given the advanced nature of his underlying liver disease (not candidate for liver transplant), dialysis is not likely to provide any therapeutic benefit. However, the patient and his brother, as well as the clinical staff at the longterm have continued to advocate for full aggressive measures. Serious consideration has been given to the burden of treatment. During the current hospitalization risks and benefits of dialysis have been discussed extensively with the patient, providers at the longterm, as well as with Chicho's brother. Based on evaluation yesterday, Dr. Herrera had conceded to starting dialysis to help regulate salt and fluid balance. -- Dr. Matamoros has been consulted and is planning to place a dialysis catheter on Wednesday. -- I do not expect significant clinical benefit and would suggest that along with dialysis consideration should be given to transitioning Chicho from the hospital to a facility suited for providing HD for ESRD as well as appropriate nursing level of care to deal with anticipated continued decline in functional status and increasing dependence including nursing care. -- Given the advanced nature of his kidney dysfunction, Aldactone has been held. Continue Bumex to encourage urine output. -- Volume status remains hypervolemic. -- Medications are appropriately dosed for kidney dysfunction. (2) Hypernatremia: -- Chicho is not expressing thirst or drinking sufficiently to correct his free water deficit. -- He remains on free water via IV. -- Water should be continually made available at the bedside and provided freely upon request. (3) Acute hepatic encephalopathy: -- Management per primary team. -- Poor chronic dialysis candidate, notably related to nonadherent with therapy resulting in dehydration, REDD and recurrent hospitalization. (4) Liver cirrhosis: -- Records indicated that Sylvie was previously evaluated for liver transplant and deemed not to be a candidate. -- Need organized plan of care with longterm system to ensure that Chicho takes medications as prescribed (this has unfortunately been a source of repeated hospitalizations). -- Overall prognosis remains poor. Admission and Anticipated Discharge Date Admission Date: August 26, 2020 Subjective No acute events overnight. Mental status continues to wax and wane. 15+ BM yesterday. No BM today. Chicho was lethargic and intermittently slurring his speech and difficult to comprehend during my evaluation today. He demonstrated some confusion but could be reoriented. He initially told me that he was at the longterm before conceding that he was at the hospital but that he did not know the name of the hospital. Chicho told me he has been here for about a week. He told me the month is August and year is . He closed his eyes and did not respond when asked for the day. He told me his brother's name (Tramaine) and that his doctor has been in contact with Tramaine. Chicho told me that his primary goal is to "be good." When I asked him about quality of life, he "until the sun boswell out" apparently implying that he will be in longterm for life (per the guards at his bedside). He also said that he wants everything that can be done for him. He did not repeat back to me any of the details regarding dialysis. He did not fully demonstrate comprehension that he understands what dialysis entails. He did say "Doc, just do whatever." He also said that he would continue to refuse "the stuff makes me shit." He denied any thirst. The bedside nurse and longterm guards told me that Chicho has not been asking for anything to drink. No fevers or chills. Plan of care was discussed with Dr. Matamoros and Dr. Antony this AM. Review of Systems Review of Systems: All systems reviewed & are unremarkable except as noted in HPI & below Physical Exam Constitutional: + ill appearing and + lethargic; no acute distress Eyes: no scleral abnormality and no corneal abnormality ENMT: Mouth: + dry oral mucous membranes; no oral mucosal abnormality Neck: normal visual inspection and trachea midline Respiratory: normal respiratory effort Auscultation: lungs clear to auscultation bilaterally and + diminished lung sounds Cardiovascular: Rate/Rhythm: regular rate Heart Sounds: normal S1 and normal S2 Extremities: + edema Gastrointestinal (Abdomen): Percussion/Palpation: abdomen soft; abdomen nontender Musculoskeletal: Extremities: no cyanosis and no clubbing Skin: normal turgor; no lesions Neurologic: Motor/Sensory: no tremor and no asterixis Psychiatric: Orientation: alert and oriented x 3 Results & Data ([facility]) Vital Signs (Past 12 Hours) Vital Signs Temp Pulse Pulse Resp BP BP Pulse Ox 09/14/20 11:28 36.5 C 66 17 174/75 H 93 09/14/20 07:59 36.9 C 81 21 141/67 H 90 09/14/20 07:11 36.5 C 09/14/20 06:05 35.5 C L 09/14/20 05:14 35.2 C L 09/14/20 04:19 35.1 C L 09/14/20 03:47 35.2 C L 09/14/20 03:00 78 20 149/75 H 95 09/14/20 01:56 68 09/14/20 00:20 76 16 161/78 H Laboratory Results Laboratory Results - last 24 hr 09/13/20 09/13/20 09/14/20 16:31 20:03 07:01 WBC 3.00 L RBC 2.73 L Hgb 8.9 L Hct 28.9 L MCV 105.9 H MCH 32.6 MCHC 30.8 L RDW Std Deviation 73.3 H RDW Coeff of Kianna 18.9 H Plt Count 117 L MPV 10.4 Sodium Potassium Chloride Carbon Dioxide Anion Gap BUN Creatinine Est Cr Clr Drug Dosing Est GFR ( Amer) Est GFR (Non-Af Amer) BUN/Creatinine Ratio Glucose POC Glucose 179 H 203 H Calcium Phosphorus Albumin Hep Bs Antigen Hep Bs Antibody Hep Bs Antibody, Quant Hep B Core IgM Ab 09/14/20 09/14/20 09/14/20 07:01 07:01 07:01 WBC RBC Hgb Hct MCV MCH MCHC RDW Std Deviation RDW Coeff of Kianna Plt Count MPV Sodium 146 H Potassium 4.1 Chloride 119 H Carbon Dioxide 21 Anion Gap 6.0 BUN 53 H Creatinine 3.61 H Est Cr Clr Drug Dosing 23.2 Est GFR ( Amer) 19.2 Est GFR (Non-Af Amer) 16.5 BUN/Creatinine Ratio 14.5 Glucose 204 H POC Glucose Calcium 8.2 L Phosphorus 4.3 Albumin 2.2 L Hep Bs Antigen Neg Hep Bs Antibody Non-Immune Hep Bs Antibody, Quant < 3.10 L Hep B Core IgM Ab Pending 09/14/20 09/14/20 07:30 11:41 WBC RBC Hgb Hct MCV MCH MCHC RDW Std Deviation RDW Coeff of Kianna Plt Count MPV Sodium Potassium Chloride Carbon Dioxide Anion Gap BUN Creatinine Est Cr Clr Drug Dosing Est GFR ( Amer) Est GFR (Non-Af Amer) BUN/Creatinine Ratio Glucose POC Glucose 206 H 193 H Calcium Phosphorus Albumin Hep Bs Antigen Hep Bs Antibody Hep Bs Antibody, Quant Hep B Core IgM Ab PG Care Time/CCT Total # of Minutes Spent Total Time Spent with Patient: Total time spent is greater than 50% in coordination of care (as documented) at patient's floor/unit and/or counseling patient: Coding Level of Care Code 40896 Subseq Hosp Care Lvl 3 Diagnoses CKD (chronic kidney disease), stage IV N18.4 Hypernatremia E87.0 Acute hepatic encephalopathy K72.00 Liver cirrhosis K74.60 Hepatic cirrhosis type: unspecified hepatic cirrhosis Ascites presence: without ascites (1) Liver cirrhosis Hepatic cirrhosis type: unspecified hepatic cirrhosis Ascites presence: without ascites Qualified Code(s): K74.60 - Unspecified cirrhosis of liver
[2020-09-14] MEDS: DEXTROSE 5% 1,000 ML IV SCH (12:32)
--- NOTE | 2020-09-14 13:20 | Hospitalist Progress Note ---
Date of Service September 14, 2020 Assessment & Plan (1) Acute hepatic encephalopathy: Due to cirrhosis. - Continue lactulose & rifaximin as tolerating -> Has refused lactulose in the past, but now doing better. - Monitor mental status -> Worse today. More lethargic. Slightly combative. - Some concern for aspiration. CXR, procalcitonin, vbg, ammonia. (2) CKD (chronic kidney disease), stage IV: Baseline Cr ~3.0 - 4.0. - Avoid nephrotoxins - Finn - Cr presently at baseline: 3.44 today. - Plan for Permacath placement on Wednesday with Dr. Matamoros. (3) Esophageal varices without bleeding: Prior notes indicate a hx of esophageal varices, but without any EGD in our system. - Hemoglobin was at baseline (8.7 on admission), then dropped to 6.7 on 08/27. Received 1 unit PRBCs on 08/27. - Today is 8.9. Stable. - Restart nadolol (4) Hypertension: Blood pressure higher today at 160/80. - Restarted nadolol on 09/06 - Started hydralazine 10 mg QID & spironolactone 200 mg PO QAM (5) Liver cirrhosis: Due to HCV. - Hold Bumex and spironolactone (6) Type 2 diabetes mellitus: A1c was 5.4% in 06/2020. - Continue basal/bolus - Blood sugars have been 130-150 in the last 24 hours. - Glycemic pharmacy following (7) GERD (gastroesophageal reflux disease): Chronic. - Pepcid PO daily (8) DVT prophylaxis: Heparin 5,000 units SQ Q12h Admission and Anticipated Discharge Date Admission Date: August 26, 2020 Subjective He is frustrated and also somewhat lethargic today. He says he doesn't know what we're doing and says we should just send him back to care home. Physical Exam Constitutional: WD/WN, vitals as above + lethargic Eyes: EOM intact bilaterally; no conjunctival abnormality ENMT: external ear and nose normal, oropharynx normal Neck: trachea midline, no thyromegaly normal visual inspection Respiratory: normal respiratory effort, lungs clear to auscultation no respiratory distress Cardiovascular: RRR, no murmur, no edema Gastrointestinal (Abdomen): Inspection/Auscultation: abdomen normal to inspection, + abdomen distended and normal bowel sounds Percussion/Palpation: abdomen soft; abdomen nontender, no guarding and abdomen not rigid Musculoskeletal: no cyanosis or clubbing, extremities motor strength 5/5 Skin: no rashes, warm and dry Neurologic: moves all extremities and awake Psychiatric: Orientation: oriented to person; + not alert and + uncooperative Results & Data Results & Data ([facility]) Vital Signs (Past 12 Hours) Vital Signs Temp Pulse Pulse Resp BP BP Pulse Ox 09/14/20 11:28 36.5 C 66 17 174/75 H 93 09/14/20 07:59 36.9 C 81 21 141/67 H 90 09/14/20 07:11 36.5 C 09/14/20 06:05 35.5 C L 09/14/20 05:14 35.2 C L 09/14/20 04:19 35.1 C L 09/14/20 03:47 35.2 C L 09/14/20 03:00 78 20 149/75 H 95 09/14/20 01:56 68 PG Care Time/CCT Total # of Minutes Spent Total Time Spent with Patient: Total time spent is greater than 50% in coordination of care (as documented) at patient's floor/unit and/or counseling patient: Coding Level of Care Code 97667 Subseq Hosp Care Lvl 2 Diagnoses Acute hepatic encephalopathy K72.00 CKD (chronic kidney disease), stage IV N18.4 Esophageal varices without bleeding I85.00 Esophageal varices type: unspecified type Hypertension I10 Hypertension type: essential hypertension Liver cirrhosis K74.60 Hepatic cirrhosis type: unspecified hepatic cirrhosis Ascites presence: without ascites Type 2 diabetes mellitus E11.9; Z79.4 Diabetes mellitus [facility] insulin use: with [facility] use Diabetes mellitus complication status: without complication GERD (gastroesophageal reflux disease) K21.9 Esophagitis presence: esophagitis presence not specified DVT prophylaxis Z29.9 (1) Esophageal varices without bleeding Esophageal varices type: unspecified type Qualified Code(s): I85.00 - Esophageal varices without bleeding (2) Hypertension Hypertension type: essential hypertension Qualified Code(s): I10 - Essential (primary) hypertension (3) Liver cirrhosis Hepatic cirrhosis type: unspecified hepatic cirrhosis Ascites presence: without ascites Qualified Code(s): K74.60 - Unspecified cirrhosis of liver (4) Type 2 diabetes mellitus Diabetes mellitus termite treater helper insulin use: with termite treater helper use Diabetes mellitus complication status: without complication Qualified Code(s): E11.9 - Type 2 diabetes mellitus without complications; Z79.4 - termite control representative (current) use of insulin (5) GERD (gastroesophageal reflux disease) Esophagitis presence: esophagitis presence not specified Qualified Code(s): K21.9 - Gastro-esophageal reflux disease without esophagitis
--- NOTE | 2020-09-14 13:39 | XRay Report ---
XR chest 1V portable HISTORY: 65 years-old Male Aspiration? Acute shortness of breath with possible aspiration COMPARISON: Chest radiograph 09/09/2020 TECHNIQUE: Portable AP view of the chest FINDINGS: Moderate enlargement of the cardiac silhouette. Pulmonary vascular congestion with interstitial coars ening. Right greater left layering pleural effusions with bibasilar opacities appear unchanged. No pn eumothorax. Degenerative changes of the shoulders and spine. IMPRESSION: 1. Cardiomegaly with unchanged pulmonary edema. 2. Right greater than left layering pleural effusions with bibasilar consolidation appears stable. ACT 112: Negative or not required by law. The above report was generated using voice recognition software. It may contain grammatical, syntax o r spelling errors. Electronically signed by: Martin Tirado M.D. 09/14/2020 1:38 PM
[2020-09-14 14:16] LABS: Base Excess VBG -4.7 mEq/L; Oxygen Saturation VBG 81.3 %; pH VBG 7.29 (7.36-7.41)
[2020-09-14] MEDS: LACTULOSE SYRUP 20 GM/30 ML UDC PO SCH ×2 (21:51→22:16)
[2020-09-15] MEDS: DEXTROSE 5% 1,000 ML IV SCH ×2 (02:09→15:36)
[2020-09-15 07:34] LABS: INR 1.3 (0.9-1.1); Prothrombin Time 13.7 Seconds (9.0-12.0)
[2020-09-15 07:42] LABS: Albumin Level 2.3 gm/dl (3.4-5.0); BUN Creatinine Ratio 12.6 (10-20); Calcium 7.8 mg/dl (8.5-10.1); Creatinine Clr Calc Pharmacy 20.3 ml/min; Est GFR (African American) 16.2; Potassium 4.4 mmol/L (3.5-5.1)
[2020-09-15 07:45] LABS: Albumin Globulin Ratio 0.5 (0.9-2); Bilirubin,Total 0.5 mg/dl (0.2-1); Globulin 4.9 gm/dl (2.5-4.0); Total Protein 7.2 gm/dl (6.4-8.2)
[2020-09-15 08:36] LABS: Hemoglobin 9.6 g/dL (14.0-18.0); Mean Corpuscular Hemoglobin 32.5 pg (25-34); Mean Corpuscular Volume 108.5 fL (80-100); Mean Platelet Volume 11.2 fL (7.4-10.4); Nucleated RBC # (auto) 0.05 K/uL (0-0); Nucleated RBC % (auto) 1.1 %; Platelet Count 147 K/uL (130-400); RDW Coefficient of Variation 18.8 % (11.5-14.5); RDW Standard Deviation 75.3 fL (36.4-46.3); Red Blood Count 2.95 M/uL (4.7-6.1); White Blood Count 4.58 K/uL (4.8-10.8)
[2020-09-15] MEDS: BUMETANIDE 2 MG in SYRINGE 0 ML IV SCH (09:20)
[2020-09-15] MEDS: INSULIN GLARGINE SOLOSTAR 100 UNITS/ML 3 ML PEN SC SCH (09:21)
[2020-09-15] MEDS: HEPARIN SOD 5,000 UNIT/0.5 ML VIAL SQ SCH (09:21)
[2020-09-15] MEDS: INSULIN ASPART 100 UNITS/ML 3 ML PEN SC SCH ×4 (09:24→21:18)
[2020-09-15] MEDS: hydrALAZINE 10 MG TAB PO SCH ×2 (10:44→14:03)
[2020-09-15] MEDS: rifAXIMin 550 MG TABLET PO SCH ×2 (10:45→21:17)
[2020-09-15] MEDS: SODIUM BICARBONATE 650 MG TAB PO SCH ×2 (10:45→21:17)
[2020-09-15] MEDS: LACTULOSE SYRUP 20 GM/30 ML UDC PO SCH ×2 (10:45→21:17)
[2020-09-15] MEDS: nadoloL 40 MG TAB PO SCH (10:45)
[2020-09-15] MEDS: FAMOTIDINE 20 MG TAB PO SCH (10:45)
--- NOTE | 2020-09-15 11:35 | Nephrology Progress Note ---
Date of Service September 15, 2020 Assessment & Plan (1) CKD (chronic kidney disease), stage IV: -- Chicho has advanced CKD and multiple recent episodes of REDD. 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 -- Unfortunately, hepatic encephalopathy and cirrhosis with MELD 23 make him a very poor candidate for dialysis. -- Plan has been to start HD to help control volume status and provide some clearance of solute. However, electrolytes have been acceptable and despite azotemia I would not attribute Chicho's encephalopathy to uremia given his degree of kidney dysfunction and the clinical history. Encephalopathy is not expected to improve with HD. -- Dr. Matamoros has been consulted and is planning to place a dialysis catheter on Wednesday. -- I do not expect significant clinical benefit and would suggest that along with dialysis consideration should be given to transitioning Chicho from the hospital to a facility suited for providing HD for ESRD as well as appropriate nursing level of care to deal with anticipated continued decline in functional status and increasing dependence including nursing care. -- At this time, I anticipate Chicho will need a feeding tube or lactulose enemas to continue to receive treatment for underlying HE. -- Given the advanced nature of his kidney dysfunction, Aldactone has been held. Continue Bumex to encourage urine output. -- Volume status remains hypervolemic. -- Medications are appropriately dosed for kidney dysfunction. (2) Hypernatremia: -- Chicho has not been expressing thirst or drinking sufficiently to correct his free water deficit. -- Free water was provided by IVF to correct this deficit. -- Water should be continually made available at the bedside and provided freely upon request. (3) Acute hepatic encephalopathy: -- Management per primary team. -- Poor chronic dialysis candidate, notably related to nonadherent with therapy resulting in dehydration, REDD and recurrent hospitalization. -- If mental status does not improve with resuming lactulose therapy, goals of care will need to be revisited with POA and all members of the care team. (4) Liver cirrhosis: -- Records indicated that Sylvie was previously evaluated for liver transplant and deemed not to be a candidate. -- MELD 23. -- Overall prognosis remains very poor. Admission and Anticipated Discharge Date Admission Date: August 26, 2020 Subjective Somnolent and unable to engage in conversation today. Chicho was not able to take medications by mouth. Per discussion with nursing staff, he was able to eat dinner last night but subsequently became increasingly encephalopathic. Hypothermia quickly rewarmed and hypoxia also noted. No BM in past 24 hours. Chicho has not taken lactulose since yesterday AM. No fevers or chills. Review of Systems Review of Systems: Unobtainable due to cognitive status Physical Exam Constitutional: + ill appearing and + altered mental status; no acute distress Eyes: + anicteric sclerae Neck: normal visual inspection and trachea midline Respiratory: normal respiratory effort Auscultation: + diminished lung sounds and + rales Cardiovascular: Rate/Rhythm: regular rate Heart Sounds: normal S1 and normal S2 Extremities: + edema Gastrointestinal (Abdomen): Inspection/Auscultation: normal bowel sounds Percussion/Palpation: abdomen soft Musculoskeletal: Extremities: no cyanosis and no clubbing Skin: normal turgor; no lesions Neurologic: + obtunded Motor/Sensory: no tremor Psychiatric: Opens eyes to stimulation by touch or shaking. Does not answer questions and quickly falls back to sleep. Results & Data ([facility]) Vital Signs (Past 12 Hours) Vital Signs Temp Pulse Resp BP BP Pulse Ox 09/15/20 08:08 36.2 C L 69 20 132/73 91 09/15/20 04:01 36.7 C 73 18 135/79 95 09/15/20 00:54 37.5 C 94 09/15/20 00:30 37.5 C 09/14/20 23:44 36.2 C L 09/14/20 23:43 92 09/14/20 23:35 36.2 C L 64 24 117/66 86 L Laboratory Results Laboratory Results - last 24 hr 09/14/20 09/14/20 09/14/20 07:01 11:41 14:04 WBC RBC Hgb Hct MCV MCH MCHC RDW Std Deviation RDW Coeff of Kianna Plt Count MPV Absolute Nucleated RBC Nucleated RBC % (auto) PT INR VBG pH 7.29 L VBG pCO2 47 VBG pO2 52 VBG HCO3 22 VBG O2 Saturation 81.3 VBG Base Excess -4.7 Barometric Pressure 736.8 Sodium Potassium Chloride Carbon Dioxide Anion Gap BUN Creatinine Est Cr Clr Drug Dosing Est GFR ( Amer) Est GFR (Non-Af Amer) BUN/Creatinine Ratio Glucose POC Glucose 193 H Lactate Calcium Magnesium Total Bilirubin AST ALT Alkaline Phosphatase NT-Pro-B Natriuret Pep Total Protein Albumin Globulin Albumin/Globulin Ratio Procalcitonin COVID-19 Eval Order Hep B Core IgM Ab NON-REACTIVE SARS-CoV-2, RNA, NAAT 09/14/20 09/14/20 09/14/20 14:04 14:04 14:04 WBC RBC Hgb Hct MCV MCH MCHC RDW Std Deviation RDW Coeff of Kianna Plt Count MPV Absolute Nucleated RBC Nucleated RBC % (auto) PT INR VBG pH VBG pCO2 VBG pO2 VBG HCO3 VBG O2 Saturation VBG Base Excess Barometric Pressure Sodium Potassium Chloride Carbon Dioxide Anion Gap BUN Creatinine Est Cr Clr Drug Dosing Est GFR ( Amer) Est GFR (Non-Af Amer) BUN/Creatinine Ratio Glucose POC Glucose Lactate 1.3 Calcium Magnesium Total Bilirubin AST ALT Alkaline Phosphatase NT-Pro-B Natriuret Pep 72583 H Total Protein Albumin Globulin Albumin/Globulin Ratio Procalcitonin 0.25 COVID-19 Eval Order Hep B Core IgM Ab SARS-CoV-2, RNA, NAAT 09/14/20 09/14/20 09/15/20 16:45 20:33 04:40 WBC RBC Hgb Hct MCV MCH MCHC RDW Std Deviation RDW Coeff of Kianna Plt Count MPV Absolute Nucleated RBC Nucleated RBC % (auto) PT INR VBG pH VBG pCO2 VBG pO2 VBG HCO3 VBG O2 Saturation VBG Base Excess Barometric Pressure Sodium Potassium Chloride Carbon Dioxide Anion Gap BUN Creatinine Est Cr Clr Drug Dosing Est GFR ( Amer) Est GFR (Non-Af Amer) BUN/Creatinine Ratio Glucose POC Glucose 188 H 210 H Lactate Calcium Magnesium Total Bilirubin AST ALT Alkaline Phosphatase NT-Pro-B Natriuret Pep Total Protein Albumin Globulin Albumin/Globulin Ratio Procalcitonin COVID-19 Eval [facility] Core IgM Ab SARS-CoV-2, RNA, NAAT 09/15/20 09/15/20 09/15/20 04:40 07:15 07:15 WBC 4.58 L RBC 2.95 L Hgb 9.6 L Hct 32.0 L MCV 108.5 H MCH 32.5 MCHC 30.0 L RDW Std Deviation 75.3 H RDW Coeff of Kianna 18.8 H Plt Count 147 MPV 11.2 H Absolute Nucleated RBC 0.05 H Nucleated RBC % (auto) 1.1 PT 13.7 H INR 1.3 H VBG pH VBG pCO2 VBG pO2 VBG HCO3 VBG O2 Saturation VBG Base Excess Barometric Pressure Sodium Potassium Chloride Carbon Dioxide Anion Gap BUN Creatinine Est Cr Clr Drug Dosing Est GFR ( Amer) Est GFR (Non-Af Amer) BUN/Creatinine Ratio Glucose POC Glucose Lactate Calcium Magnesium Total Bilirubin AST ALT Alkaline Phosphatase NT-Pro-B Natriuret Pep Total Protein Albumin Globulin Albumin/Globulin Ratio Procalcitonin COVID-19 Eval Order Hep B Core IgM Ab SARS-CoV-2, RNA, NAAT NEGATIVE 09/15/20 09/15/20 07:15 07:39 WBC RBC Hgb Hct MCV MCH MCHC RDW Std Deviation RDW Coeff of Kianna Plt Count MPV Absolute Nucleated RBC Nucleated RBC % (auto) PT INR VBG pH VBG pCO2 VBG pO2 VBG HCO3 VBG O2 Saturation VBG Base Excess Barometric Pressure Sodium 144 Potassium 4.4 Chloride 117 H Carbon Dioxide 25 Anion Gap 2.0 L BUN 52 H Creatinine 4.14 H D Est Cr Clr Drug Dosing 20.3 Est GFR ( Amer) 16.2 Est GFR (Non-Af Amer) 14.0 BUN/Creatinine Ratio 12.6 Glucose 169 H POC Glucose 167 H Lactate Calcium 7.8 L Magnesium 2.0 Total Bilirubin 0.5 AST 23 ALT 19 Alkaline Phosphatase 110 NT-Pro-B Natriuret Pep Total Protein 7.2 Albumin 2.3 L Globulin 4.9 H Albumin/Globulin Ratio 0.5 L Procalcitonin COVID-19 Eval Order Hep B Core IgM Ab SARS-CoV-2, RNA, NAAT PG Care Time/CCT Total # of Minutes Spent Total Time Spent with Patient: Total time spent is greater than 50% in coordination of care (as documented) at patient's floor/unit and/or counseling patient: Coding Level of Care Code 47249 Subseq Hosp Care Lvl 3 Diagnoses CKD (chronic kidney disease), stage IV N18.4 Hypernatremia E87.0 Acute hepatic encephalopathy K72.00 Liver cirrhosis K74.60 Hepatic cirrhosis type: unspecified hepatic cirrhosis Ascites presence: without ascites (1) Liver cirrhosis Hepatic cirrhosis type: unspecified hepatic cirrhosis Ascites presence: without ascites Qualified Code(s): K74.60 - Unspecified cirrhosis of liver
[2020-09-15] MEDS ORDERED: RAPID SEQUENCE INDUCTION BAG ONE (11:55)
[2020-09-15] MEDS ORDERED: PROPOFOL BOLUS FROM BAG IV PRN (12:12)
[2020-09-15] MEDS ORDERED: STAT IV Infusion **Titration per Protocol STA (12:12)
[2020-09-15] MEDS: fentaNYL DRIP 1,250 MCG/250 ML BAG IV SCH (12:15)
[2020-09-15] MEDS: propofoL 1,000 MG/100 ML VIAL IV SCH ×2 (12:15→16:49)
[2020-09-15] MEDS: NOREPINEPHRINE/D5W 8 MG/508 ML BAG IV SCH (13:00)
--- NOTE | 2020-09-15 13:23 | Critical Care Consultation ---
Date of Consultation September 15, 2020 Assessment & Plan (1) Acute hepatic encephalopathy: --VDRF with acute hypoxic respiratory failure S/p cardiac arrest 09/15/2020 Likely secondary to aspiration leading to hypoxia--> bradycardia and cardiac arrest On top of underlying volume overload and bilateral pleural effusion BNP > 13,000 Continue with ventilatory support Keep RASS -1 --Shock component of cardiac, r/o septic Continue with vasopressor to keep MAP greater than 65 --REDD on CKD Patient has bilateral pleural effusions Baseline creatinine 3.5 Continue with diuretics Nephrology on board. For permacath 09/16/20 --Acute hepatic encephalopathy Because of noncompliance with lactulose Continue with lactulose through the NGT --Liver cirrhosis with history of esophageal varices On bedside ultrasound he has ascites fluid especially in the perihepatic region --Type 2 diabetes Continue with ICU hyperglycemia protocol --Prophylaxis VTE: Heparin GI: Pepcid Lines: Left IJ 09/15/2020, peripheral, positive Finn Diet: N.p.o. Plan: We will increase the bumetanide to 3 every 12 hours. Try to keep the patient negative balance Patient did respond after coming to the ICU. No need for hypothermia protocol Overall prognosis of the patient given CKD now ending up on hemodialysis, end- stage liver disease is very poor. Has been DNR in the past and there have been instances where he has reversed to full code then again DNR. I think ethics committee should be involved to decide goals of care. We will give the patient Unasyn as he aspirated for at least 48 hours and then decide whether to continue with it. Patient was scheduled to have permacath placement tomorrow. There is no acute indication for dialysis. I think he can be dialyzed tomorrow after permacath is placed. Patient's potassium was 4.8. I will give Kayexalate 30 g via OGT. I have personally spent 58 minutes of critical care time in the direct management of this patient. This is a life/limb threatening event. This includes time spent evaluating patient, direct bedside care, chart review, placing orders, interpretation of diagnostic studies, discussion with consultants, patient, and family members, as well as other required patient management activities. This time is exclusive of all separately billable procedures, and teaching time and separate from and in addition to any other critical care service time. Please note the above document was generated using voice recognition software. It may contain grammatical, syntax or spelling errors. (2) Cardiac arrest: (3) Acute hepatic encephalopathy: (4) Liver cirrhosis: (5) Acute on chronic kidney failure: History of Present Illness Attending Physician: Al Antony MD History of Present Illness 65-year-old -Prydeinig male with past medical history of liver cirrhosis with varices esophageal, CKD stage III-IV, diabetes, dyslipidemia presented to [facility] on 08/26/2020 with altered mental status. This was likely related to hepatic encephalopathy. Patient has multiple admissions in the past for the same reason. Is noncompliant with lactulose and other medications at the present. Today on the floor he was getting more lethargic and more altered. Code gabriella was called initially followed by CODE ANGELICA. Patient got ROSC. I was present at the end of the code after the patient got ROSC. Patient was intubated on the floor. During intubation vomit was appreciated in the oral cavity. After intubation and suctioning again vomit secretions were aspirated. Patient will be transferred to the ICU History obtained from previous records. Allergies Allergy/AdvReac Type Severity Reaction Status Date / Time No Known Drug Allergies Allergy NKDA Unverified 08/26/20 04:25 Home Medications Medication Instructions Recorded Confirmed Type lactulose 20 g PO TID PRN 06/28/20 08/26/20 History Novolin 70/30 U-100 Insulin 30 unit SUBCUT QAM 08/21/20 08/26/20 History Novolin R Regular U-100 Insuln 1 sliding scale dose SUBCUT 08/21/20 08/26/20 History USEASDIRECTD Xifaxan 550 mg PO BID 08/21/20 08/26/20 History bumetanide 1 mg PO DAILY 08/21/20 08/26/20 History levalbuterol tartrate [Xopenex HFA] 2 inh INHALATION QID 08/21/20 08/26/20 History nadolol 40 mg PO BID 08/21/20 08/26/20 History spironolactone 100 mg PO DAILY 08/21/20 08/26/20 History witch beulah-glycerin (hamamel) 1 pad TOPICAL TID PRN 08/21/20 08/26/20 History zinc oxide 1 applic TOPICAL BID 08/21/20 08/26/20 History Patient History Medical History (Updated 09/15/20 @ 13:19 by Burt Juarez MD) Acute hepatic encephalopathy Acute kidney injury Allergic rhinitis Anemia, unspecified Chronic kidney disease, unspecified Confusion Esophageal varices without bleeding Flatulence GERD (gastroesophageal reflux disease) HCV (hepatitis C virus) Treated Hyperlipidemia Hypertension Hypertensive urgency Liver cirrhosis Low back pain Metabolic acidosis Microscopic hematuria Onychomycosis Palliative care encounter Partial small bowel obstruction Proteinuria Pruritus, unspecified Type 2 diabetes mellitus Umbilical hernia without obstruction or gangrene Social History Smoking Status: Former smoker Second Hand Exposure: No; Hx Alcohol Use: No Hx Substance Use: No Preferred Language: Albanian Communication Ability: Impaired 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 Beliefs That Will Affect Care: None Current Living Situation: Legal Guardian and Other Current Living Situation Comment: [facility]EE[facility] Braxton Feels Safe at Home: Yes Assistive Devices: Walker Review of Systems Review of Systems: Unobtainable due to cognitive status and Unobtainable due t o endotracheal tube Physical Exam Physical Exam: Constitutional: No acute distress HEENT: PERRLA, arcus senilis bilaterally, positive ETT Respiratory system: Decreased air entry bilaterally, no wheeze, no rhonchi, positive crackles bilateral CVS: S1-S2 positive Abdomen: Soft, nontender, distended, reducible periumbilical hernia, positive bowel sounds x4 Extremities: +2 pulses bilaterally radialis/ dorsalis pedis, no cyanosis, +2 pitting edema bilateral lower extremity Neuro: Sedated, patient did not respond and follows simple commands just prior to putting a central line. Psych: Unable to assess G/U: Positive Finn Skin: no rashes, warm and dry Lymphatic: no cervical or axillary lymphadenopathy Results & Data Results & Data ([facility]) Vital Signs (Past 12 Hours) Vital Signs Temp Pulse Resp BP BP Pulse Ox 09/15/20 11:41 45 L 14 49/31 L 85 L 09/15/20 11:39 35.9 C L 46 L 14 52/34 L 93 09/15/20 08:08 36.2 C L 69 20 132/73 91 09/15/20 04:01 36.7 C 73 18 135/79 95 09/15/20 07:15 09/15/20 07:15 Coding Level of Care Code Critical Care 1st 30-74 mins Diagnoses Acute hepatic encephalopathy K72.00 Cardiac arrest I46.9 Acute hepatic encephalopathy K72.00 Liver cirrhosis K74.60 Ascites presence: without ascites Hepatic cirrhosis type: unspecified hepatic cirrhosis Acute on chronic kidney failure N17.9; N18.9 Time Spent (min) 58 (1) Liver cirrhosis Ascites presence: without ascites Hepatic cirrhosis type: unspecified hepatic cirrhosis Qualified Code(s): K74.60 - Unspecified cirrhosis of liver
[2020-09-15 13:30] LABS: Eosinophils # (auto) 0.01 K/uL (0-0.5); Eosinophils % (auto) 0.2 %; Hematocrit (blood only) 28.8 % (42-52); Hemoglobin 8.7 g/dL (14.0-18.0); Immature Granulocytes # (auto) 0.04 K/uL (0.00-0.02); Lymphocytes # (auto) 0.31 K/uL (1.2-3.4); Lymphocytes % (auto) 7.4 %; Mean Corpuscular Hemoglobin 33.2 pg (25-34); Mean Corpuscular Volume 109.9 fL (80-100); Mean Platelet Volume 10.6 fL (7.4-10.4); Monocytes # (auto) 0.38 K/uL (0.11-0.59); Monocytes % (auto) 9.1 %; Neutrophils # (auto) 3.45 K/uL (1.4-6.5); Neutrophils % (auto) 82.3 %; Nucleated RBC # (auto) 0.05 K/uL (0-0); Nucleated RBC % (auto) 1.3 %; Platelet Count 124 K/uL (130-400); RDW Coefficient of Variation 19.1 % (11.5-14.5); RDW Standard Deviation 76.7 fL (36.4-46.3); Red Blood Count 2.62 M/uL (4.7-6.1); White Blood Count 4.19 K/uL (4.8-10.8)
--- NOTE | 2020-09-15 13:33 | XRay Report ---
SINGLE VIEW CHEST CLINICAL HISTORY: Respiratory failure. Intubation. FINDINGS: 2 AP, portable, upright chest radiographs are compared to study dated 09/14/2020. The examin ation is degraded by portable technique and apical lordotic positioning. An endotracheal tube has bee n placed. The tip projects 1.5 cm above the lizette. An enteric tube has been placed. The tip extends below the diaphragm in the stomach. A left internal jugular central venous catheter has been placed. The tip projects over the cavoatrial junction. The heart is enlarged. There is pulmonary vascular con gestion with evidence of interstitial edema. There are right larger than left layering pleural effusi ons with bibasilar consolidation. No pneumothorax is seen. The bony thorax is grossly intact. IMPRESSION: 1. Line and tube placement as above. 2. Cardiomegaly with evidence of congestive failure and interstitial edema. 3. Layering pleural effusions with bibasilar consolidation. These have modestly increased in size fro m previous. 4. No pneumothorax is identified post line placement. ACT 112: Negative or not required by law. Electronically signed by: Juan Antonio Gibbs M.D. 09/15/2020 1:32 PM
[2020-09-15 13:53] LABS: Mean Corpuscular Hgb Conc 30.2 g/dL (32-36)
[2020-09-15 14:05] LABS: Albumin Globulin Ratio 0.4 (0.9-2); Albumin Level 1.8 gm/dl (3.4-5.0); BUN Creatinine Ratio 11.7 (10-20); Bilirubin,Total 0.5 mg/dl (0.2-1); C Reactive Protein 1.06 mg/dl (0-0.29); Calcium 8.5 mg/dl (8.5-10.1); Creatinine Clr Calc Pharmacy 18.3 ml/min; Est GFR (African American) 14.4; Est GFR (Non-African American) 12.4; Globulin 4.4 gm/dl (2.5-4.0); Potassium 4.8 mmol/L (3.5-5.1); Total Protein 6.2 gm/dl (6.4-8.2)
[2020-09-15] MEDS: AMPICILLIN/SULBACTAM SOD 1,500 MG in 0.9 % SODIUM CHLORIDE 100 ML IV SCH (14:34)
--- NOTE | 2020-09-15 14:43 | Procedure Note ---
Procedure Note Date of Service September 15, 2020 INTUBATION PROCEDURE NOTE: Attending: Dr Burt Juarez MD Patient was evaluated and plan to intubate was made for cardiac arrest. Sedative agent used: None Paralysis agent used: None Emergent consent was implied given patients rapidly declining clinical status and need for airway protection. The patient was prepared in the appropriate fashion. The patient was easily pre-oxygenated by using pll-osgro-erim ventilation. With help of CMAC grade 2 vocal cords were visualized and 8 Vietnamese ETT was introduced on first attempt to 25 cm at the lip. The stylette was removed and balloon was inflated with 10mL of air. Appropriate Colorimetric change was appreciated for at least 10 breaths. Bilateral chest rise and breath sounds were appreciated without air sounds in the epigastrium. Patient tolerated the procedure well and there were no immediate complications. Significant secretions were appreciated. This was likely vomitus which was suctioned out prior to intubation. Chest Xray to follow for confirming placement. Coding CPT Codes Resuscitation - Resuscitation: 96131 Endotracheal Intubation, emergency ([id number]) [facility] Procedure Codes (Charges) Resuscitation Resuscitation: 56829 Endotracheal Intubation, emergency
--- NOTE | 2020-09-15 14:44 | Procedure Note ---
Procedure Note Date of Service September 15, 2020 Procedure: Inserting ultrasound-guided central oil pipeline operator: Dr. Burt Juarez Indication: Hypotension Consent: Emergent Anesthesia: 1% lidocaine without epinephrine local. Procedure: Consent was verified and timeout performed. Appropriate imaging studies were reviewed prior to the procedure. Under aseptic and sterile condition, left IJ vein was accessed under direct ultrasound guidance. Guidewire was confirmed to be within the lumen of vein with the help of ultrasound. Catheter was introduced via Seldinger technique. Guide a wire was removed. Good non-pulsatile blood flow was appreciated from all the ports. The catheter was placed at 20 cm and sutured in place. BioPatch was applied to the catheter and a sterile Tegaderm dressing was applied over the catheter with careful attention to sterility. Lung sliding was appreciated post procedure with the help ultrasound. Chest x-ray to follow Patient tolerated the procedure well. Blood loss: Less than 2 cc Complications: None Coding CPT Codes Tubes, Drains, and Vasc Access - Tubes, Drains, and Vasc Access: [id number] Place catheter in vein superior or inferior vena cava ([id number]) Tubes, Drains, and Vasc Access - Tubes, Drains, and Vasc Access: [id number] Ultrasound Guidance For Vascular ([id number]) [facility] Procedure Codes (Charges) Tubes, Drains, and Vasc Access Procedure 1: Tubes, Drains, and Vasc Access: [id number] Place catheter in vein superior or inferior vena cava Procedure 2: Tubes, Drains, and Vasc Access: [id number] Ultrasound Guidance For Vascular
[2020-09-15] MEDS ORDERED: SODIUM POLYSTYRENE SULFONATE 15G/60ML SUSP PO STA (15:38)
--- NOTE | 2020-09-15 16:23 | Hospitalist Progress Note ---
Date of Service September 15, 2020 Assessment & Plan (1) Acute hepatic encephalopathy: Due to cirrhosis. - Continue lactulose & rifaximin as tolerating -> Had refused lactulose in the past, but now doing better. - On 09/14, he had multiple BMs, but also refused more of his lactulose. He then took an afternoon dose, but then declined the evening dose. - On 09/15, he was obtunded and could not take any by mouth. He became progressively bradycardic and hypotensive. Code purple, then code blue was called. He underwent about 2 minutes of CPR and achieved ROSC. He was then intubated for airway protection and moved to the ICU. (2) CKD (chronic kidney disease), stage IV: Baseline Cr ~3.0 - 4.0. - Avoid nephrotoxins - Finn - Cr presently at baseline: 3.44 today. - Plan for Permacath placement on Wednesday with Dr. Matamoros now in question. (3) Esophageal varices without bleeding: Prior notes indicate a hx of esophageal varices, but without any EGD in our system. - Hemoglobin was at baseline (8.7 on admission), then dropped to 6.7 on 08/27. Received 1 unit PRBCs on 08/27. - Today is 8.9. Stable. - Restart nadolol (4) Hypertension: Blood pressure higher today at 160/80. - Restarted nadolol on 09/06 - Started hydralazine 10 mg QID & spironolactone 200 mg PO QAM (5) Liver cirrhosis: Due to HCV. - Hold Bumex and spironolactone (6) Type 2 diabetes mellitus: A1c was 5.4% in 06/2020. - Continue basal/bolus - Blood sugars have been 130-150 in the last 24 hours. - Glycemic pharmacy following (7) GERD (gastroesophageal reflux disease): Chronic. - Pepcid PO daily (8) DVT prophylaxis: Heparin 5,000 units SQ Q12h Admission and Anticipated Discharge Date Admission Date: August 26, 2020 Subjective Unresponsive. Review of Systems Review of Systems: Unobtainable due to reduced consciousness Physical Exam Constitutional: WD/WN, vitals as above + lethargic Eyes: EOM intact bilaterally; no conjunctival abnormality ENMT: external ear and nose normal, oropharynx normal Neck: trachea midline, no thyromegaly normal visual inspection Respiratory: normal respiratory effort, lungs clear to auscultation no respiratory distress Cardiovascular: RRR, no murmur, no edema Gastrointestinal (Abdomen): Inspection/Auscultation: abdomen normal to inspection, + abdomen distended and normal bowel sounds Percussion/Palpation: abdomen soft; abdomen nontender, no guarding and abdomen not rigid Musculoskeletal: no cyanosis or clubbing, extremities motor strength 5/5 Skin: no rashes, warm and dry Neurologic: + does not move all extremities and + not awake Psychiatric: Orientation: + not alert, + not oriented to person and + uncooperative Results & Data Results & Data ([facility]) Vital Signs (Past 12 Hours) Vital Signs Temp Pulse Pulse Resp BP BP Pulse Ox 09/15/20 15:44 65 27 H 100 09/15/20 15:12 35.9 C L 64 105/53 L 09/15/20 15:00 36.0 C L 66 100 09/15/20 14:57 36.0 C L 65 113/51 L 09/15/20 14:45 36.0 C L 66 100 09/15/20 14:42 36.0 C L 67 121/47 L 09/15/20 14:30 35.9 C L 69 100 09/15/20 14:27 35.9 C L 70 150/78 H 09/15/20 14:15 35.9 C L 70 100 09/15/20 14:13 35.9 C L 68 149/101 H 09/15/20 14:08 71 09/15/20 14:00 35.9 C L 73 100 09/15/20 13:57 35.8 C L 71 148/84 H 09/15/20 13:45 35.8 C L 70 100 09/15/20 13:30 35.8 C L 67 100 09/15/20 13:26 35.8 C L 66 113/61 09/15/20 13:24 35.7 C L 66 104/57 L 100 09/15/20 13:22 35.8 C L 68 122/90 100 09/15/20 13:19 35.8 C L 66 134/50 L 100 09/15/20 13:16 66 133/57 L 100 09/15/20 13:14 66 110/71 100 09/15/20 13:12 67 100 09/15/20 13:10 64 69/51 L 100 09/15/20 13:06 62 105/65 100 09/15/20 13:04 58 L 73/44 L 100 09/15/20 13:02 55 L 55/32 L 09/15/20 13:00 55 L 49/30 L 98 09/15/20 12:58 56 L 51/32 L 98 09/15/20 12:57 57 L 55/34 L 99 09/15/20 12:45 59 L 100 09/15/20 12:30 65 96 09/15/20 12:20 65 23 93 09/15/20 12:15 82 09/15/20 12:11 87 151/76 H 09/15/20 12:01 102 H 09/15/20 11:41 45 L 14 49/31 L 85 L 09/15/20 11:39 35.9 C L 46 L 14 52/34 L 93 09/15/20 08:08 36.2 C L 69 20 132/73 91 PG Care Time/CCT Total # of Minutes Spent Total Time Spent with Patient: Total time spent is greater than 50% in coordination of care (as documented) at patient's floor/unit and/or counseling patient: Coding Level of Care Code 31757 Subseq Hosp Care Lvl 3 Diagnoses Acute hepatic encephalopathy K72.00 CKD (chronic kidney disease), stage IV N18.4 Esophageal varices without bleeding I85.00 Esophageal varices type: unspecified type Hypertension I10 Hypertension type: essential hypertension Liver cirrhosis K74.60 Hepatic cirrhosis type: unspecified hepatic cirrhosis Ascites presence: without ascites Type 2 diabetes mellitus E11.9; Z79.4 Diabetes mellitus chcf insulin use: with space control supervisor use Diabetes mellitus complication status: without complication GERD (gastroesophageal reflux disease) K21.9 Esophagitis presence: esophagitis presence not specified DVT prophylaxis Z29.9 (1) Esophageal varices without bleeding Esophageal varices type: unspecified type Qualified Code(s): I85.00 - Esophageal varices without bleeding (2) Hypertension Hypertension type: essential hypertension Qualified Code(s): I10 - Essential (primary) hypertension (3) Liver cirrhosis Hepatic cirrhosis type: unspecified hepatic cirrhosis Ascites presence: without ascites Qualified Code(s): K74.60 - Unspecified cirrhosis of liver (4) Type 2 diabetes mellitus Diabetes mellitus space control supervisor insulin use: with chcf use Diabetes mellitus complication status: without complication Qualified Code(s): E11.9 - Type 2 diabetes mellitus without complications; Z79.4 - adhesion tester (current) use of insulin (5) GERD (gastroesophageal reflux disease) Esophagitis presence: esophagitis presence not specified Qualified Code(s): K21.9 - Gastro-esophageal reflux disease without esophagitis
[2020-09-15] MEDS: BUMETANIDE 3 MG in SYRINGE 0 ML IV SCH (16:48)
[2020-09-15] MEDS ORDERED: metOLazone 5 MG TABLET PO ONE (17:30)
[2020-09-16] MEDS: propofoL 1,000 MG/100 ML VIAL IV SCH ×4 (00:06→20:54)
[2020-09-16] MEDS: NOREPINEPHRINE/D5W 8 MG/508 ML BAG IV SCH (01:53)
[2020-09-16 05:02] LABS: iSTAT Allen Test Pass; iSTAT Art Bld Gas pCO2 Correct 24 mmHg (35-46); iSTAT Art Bld Gas pH Corrected 7.481 (7.35-7.45); iSTAT Arterial Blood Gas HCO3 18 meg/L (19-24); iSTAT Arterial Blood Gas pCO2 25 mmHg (35-46); iSTAT Arterial Blood Gas pH 7.48 (7.35-7.45); iSTAT Arterial Blood Gas pO2 77 mmHg (80-95); iSTAT Arterial Blood Gas pO2 C 75; iSTAT Carbon Dioxide 19 mmol/L (24-31); iSTAT FiO2 30 %; iSTAT Hematocrit 24 % (42-52); iSTAT Hemoglobin 8.2 g/dl (14.0-18.0); iSTAT Potassium 3.9 mmol/L (3.3-5.0); iSTAT Site R Radial; iSTAT Sodium 145 mmol/L (135-144)
[2020-09-16 05:08] LABS: Albumin Globulin Ratio 0.5 (0.9-2); Albumin Level 1.8 gm/dl (3.4-5.0); BUN Creatinine Ratio 10.8 (10-20); Bilirubin,Total 0.6 mg/dl (0.2-1); Calcium 7.6 mg/dl (8.5-10.1); Creatinine Clr Calc Pharmacy 16.7 ml/min; Est GFR (African American) 12.8; Est GFR (Non-African American) 11.1; Globulin 3.9 gm/dl (2.5-4.0); Potassium 3.9 mmol/L (3.5-5.1); Total Protein 5.7 gm/dl (6.4-8.2); Troponin I 0.39 ng/ml (0-0.045)
[2020-09-16] MEDS: DEXTROSE 5% 1,000 ML IV SCH (05:17)
[2020-09-16 05:36] LABS: Hematocrit (blood only) 26.2 % (42-52); Hemoglobin 8.2 g/dL (14.0-18.0); Mean Corpuscular Hemoglobin 32.2 pg (25-34); Mean Corpuscular Hgb Conc 31.3 g/dL (32-36); Mean Corpuscular Volume 102.7 fL (80-100); Mean Platelet Volume 10.3 fL (7.4-10.4); Platelet Count 109 K/uL (130-400); RDW Coefficient of Variation 18.7 % (11.5-14.5); RDW Standard Deviation 68.9 fL (36.4-46.3); Red Blood Count 2.55 M/uL (4.7-6.1); White Blood Count 3.89 K/uL (4.8-10.8)
[2020-09-16] MEDS: AMPICILLIN/SULBACTAM SOD 1,500 MG in 0.9 % SODIUM CHLORIDE 100 ML IV SCH (05:37)
[2020-09-16] MEDS ORDERED: ceFAZolin 2000MG 2,000 MG/15 ML SYR IV SCH (06:00)
[2020-09-16] MEDS: INSULIN ASPART 100 UNITS/ML 3 ML PEN SC SCH ×3 (06:45→21:33)
--- NOTE | 2020-09-16 07:24 | XRay Report ---
XR chest 1V portable CLINICAL HISTORY: Respiratory failure COMPARISON STUDY: 09/15/2010 FINDINGS: There is an endotracheal tube 3 cm above the lizette. There is an enteric tube which passes into the stomach. There is a left internal jugular central venous catheter which terminates within th e superior vena cava. Cardiac and mediastinal contours remain stable. There are bilateral pleural eff usions right greater than left with associated basilar atelectasis/consolidation. Pulmonary vascular congestion is suspected.[ IMPRESSION: 1. No significant change from the prior study 2. Continued radiographic evidence of pulmonary vascular congestion/fluid overload 3. Persistent bilateral pleural effusions right greater than left with associated basilar atelectasis /consolidation ACT 112: Negative or not required by law. Electronically signed by: Bryan Tolliver M.D. 09/16/2020 7:23 AM
[2020-09-16] MEDS ORDERED: Nursing to Pharmacy Communication SCH (08:15)
--- NOTE | 2020-09-16 09:04 | Communication Note ---
Date of Service: September 16, 2020 Patient not a candidate for a permcath at this time. Would have a temporary dialysis catheter placed if dialysis is needed. Please call us if his condition improves for a permcath insertion.
[2020-09-16] MEDS: rifAXIMin 550 MG TABLET PO SCH ×2 (09:08→20:53)
[2020-09-16] MEDS: SODIUM BICARBONATE 650 MG TAB PO SCH (09:08)
[2020-09-16] MEDS: FAMOTIDINE 20 MG TAB PO SCH (09:08)
[2020-09-16] MEDS: BUMETANIDE 3 MG in SYRINGE 0 ML IV SCH ×2 (09:08→16:57)
[2020-09-16] MEDS: LACTULOSE SYRUP 20 GM/30 ML UDC PO SCH ×2 (09:08→20:53)
--- NOTE | 2020-09-16 09:16 | Nephrology Progress Note ---
Date of Service September 16, 2020 Assessment & Plan (1) CKD (chronic kidney disease), stage IV: -- Oliguric following hemodynamic instability. This is consistent with superimposed ATN. -- Chicho is currently critically ill and unstable. He is not a candidate for permcath placement at this time. I discussed this with Dr. Matamoros. -- There is no emergent indication for temporary dialysis catheter placement. -- The role of dialysis would be to help control volume status which should be considered if it would help with extubation. -- Unfortunately, HD is not likely to improve his encephalopathy. -- In his current condition, HD may certainly be considered greater risk than benefit. Ultimately, given refractive encephalopathy, I fear it would ultimately be futile. -- Overall, Chicho does have terminal illness unlikely to improve. -- Medications are appropriately dosed for kidney dysfunction. (2) Hypernatremia: -- Acceptable at this time. (3) Acute hepatic encephalopathy: -- If mental status does not improve with current therapy, goals of care will need to be revisited with POA and all members of the care team. (4) Liver cirrhosis: -- Prognosis unfortunately very poor. Admission and Anticipated Discharge Date Admission Date: August 26, 2020 Subjective Transferred to ICU yesterday following emergent intubation. Chicho became obtunded and unable to protect his airway. He was hypotensive and suffered PEA with ROSC following IV epinephrine. He is intubated and sedated in the ICU at this time. Lactulose is being provided via NG. Review of Systems Review of Systems: Unobtainable due to cognitive status and Unobtainable due to endotracheal tube Physical Exam Constitutional: + edematous; no acute distress sedated and intubated Eyes: + anicteric sclerae ENMT: ETT Neck: normal visual inspection and trachea midline Respiratory: normal respiratory effort Auscultation: + diminished lung sounds and + rales Cardiovascular: Rate/Rhythm: regular rate Heart Sounds: normal S1 and normal S2 Extremities: + edema Gastrointestinal (Abdomen): Inspection/Auscultation: normal bowel sounds Percussion/Palpation: abdomen soft Musculoskeletal: Extremities: no cyanosis and no clubbing Skin: normal turgor; no lesions Neurologic: + obtunded Motor/Sensory: no tremor Results & Data ([facility]) Vital Signs (Past 12 Hours) Vital Signs Temp Pulse Resp BP Pulse Ox 09/16/20 08:19 69 137/61 97 09/16/20 07:30 69 22 97 09/16/20 07:18 69 137/60 97 09/16/20 07:00 70 98 09/16/20 03:45 72 27 H 100 09/16/20 03:00 79 99 09/16/20 02:30 37.1 C 76 95 09/16/20 02:18 37.1 C 77 130/54 L 97 09/16/20 02:00 37.0 C 76 95 09/16/20 01:30 37.0 C 76 96 09/16/20 01:18 37.0 C 77 136/58 L 98 09/16/20 01:00 36.9 C 76 97 09/16/20 00:30 36.8 C 75 96 09/16/20 00:18 36.8 C 75 130/58 L 97 09/16/20 00:00 36.8 C 75 97 09/15/20 23:30 36.7 C 75 98 09/15/20 23:18 36.7 C 75 132/58 L 98 09/15/20 23:01 75 27 H 97 09/15/20 23:00 36.7 C 74 96 09/15/20 22:30 36.6 C 74 96 09/15/20 22:18 36.5 C 73 127/59 L 97 09/15/20 22:00 36.5 C 74 98 09/15/20 21:30 36.4 C L 75 96 09/15/20 21:18 36.3 C L 75 126/63 97 Laboratory Results Laboratory Results - last 24 hr 08/27/20 09/15/20 09/15/20 04:48 11:37 12:45 WBC RBC Hgb POC Hgb Hct POC Hct MCV MCH MCHC RDW Std Deviation RDW Coeff of Kianna Plt Count MPV Immature Gran % (Auto) Neut % (Auto) Lymph % (Auto) [place] % (Auto) Eos % (Auto) Baso % (Auto) Neut # (Auto) Lymph # (Auto) [place] # (Auto) Eos # (Auto) Baso # (Auto) Immature Gran # (Auto) Absolute Nucleated RBC Nucleated RBC % (auto) ESR Sample Site POC pH POC pCO2 POC pO2 POC HCO3 POC Total CO2 POC Base Excess ABG pH (Temp Correct) ABG pCO2 (Temp Corrct POC ABG pO2 at Pt Temp POC ABG O2 Sat Ba Test O2 Delivery Device POC O2 Rate Minute Ventilation POC FiO2 Tidal Volume PEEP POC Sodium Sodium POC Potassium Potassium Chloride Carbon Dioxide Anion Gap BUN Creatinine Est Cr Clr Drug Dosing Est GFR ( Amer) Est GFR (Non-Af Amer) BUN/Creatinine Ratio Glucose POC Glucose 219 H POC Glucose (other) Lactate Calcium Total Bilirubin AST ALT Alkaline Phosphatase Ammonia Troponin I C-Reactive Protein Total Protein Albumin Globulin Albumin/Globulin Ratio Procalcitonin Nasal Screen MRSA (PCR) Negative Stl C. diff Tox B Gene Crossmatch See Detail 09/15/20 09/15/20 09/15/20 13:02 13:20 13:20 WBC 4.19 L RBC 2.62 L Hgb 8.7 L POC Hgb Hct 28.8 L POC Hct MCV 109.9 H MCH 33.2 MCHC 30.2 L RDW Std Deviation 76.7 H RDW Coeff of Kianna 19.1 H Plt Count 124 L MPV 10.6 H Immature Gran % (Auto) 1.0 Neut % (Auto) 82.3 Lymph % (Auto) 7.4 [place] % (Auto) 9.1 Eos % (Auto) 0.2 Baso % (Auto) 0.0 Neut # (Auto) 3.45 Lymph # (Auto) 0.31 L [place] # (Auto) 0.38 Eos # (Auto) 0.01 Baso # (Auto) 0.00 Immature Gran # (Auto) 0.04 H Absolute Nucleated RBC 0.05 H Nucleated RBC % (auto) 1.3 ESR 19 H Sample Site POC pH POC pCO2 POC pO2 POC HCO3 POC Total CO2 POC Base Excess ABG pH (Temp Correct) ABG pCO2 (Temp Corrct POC ABG pO2 at Pt Temp POC ABG O2 Sat Ba Test O2 Delivery Device POC O2 Rate Minute Ventilation POC FiO2 Tidal Volume PEEP POC Sodium Sodium POC Potassium Potassium Chloride Carbon Dioxide Anion Gap BUN Creatinine Est Cr Clr Drug Dosing Est GFR ( Amer) Est GFR (Non-Af Amer) BUN/Creatinine Ratio Glucose POC Glucose 208 H POC Glucose (other) Lactate Calcium Total Bilirubin AST ALT Alkaline Phosphatase Ammonia Troponin I C-Reactive Protein Total Protein Albumin Globulin Albumin/Globulin Ratio Procalcitonin Nasal Screen MRSA (PCR) Stl C. diff Tox B Gene Crossmatch 01/09/15/20 09/15/20 13:20 13:20 13:46 WBC RBC Hgb POC Hgb Hct POC Hct MCV MCH MCHC RDW Std Deviation RDW Coeff of Kianna Plt Count MPV Immature Gran % (Auto) Neut % (Auto) Lymph % (Auto) [place] % (Auto) Eos % (Auto) Baso % (Auto) Neut # (Auto) Lymph # (Auto) [place] # (Auto) Eos # (Auto) Baso # (Auto) Immature Gran # (Auto) Absolute Nucleated RBC Nucleated RBC % (auto) ESR Sample Site POC pH POC pCO2 POC pO2 POC HCO3 POC Total CO2 POC Base Excess ABG pH (Temp Correct) ABG pCO2 (Temp Corrct POC ABG pO2 at Pt Temp POC ABG O2 Sat Ba Test O2 Delivery Device POC O2 Rate Minute Ventilation POC FiO2 Tidal Volume PEEP POC Sodium Sodium 144 POC Potassium Potassium 4.8 Chloride 115 H Carbon Dioxide 21 Anion Gap 8.0 BUN 54 H Creatinine 4.58 H* D Est Cr Clr Drug Dosing 18.3 Est GFR ( Amer) 14.4 Est GFR (Non-Af Amer) 12.4 BUN/Creatinine Ratio 11.7 Glucose 212 H POC Glucose POC Glucose (other) Lactate Calcium 8.5 Total Bilirubin 0.5 AST 21 ALT 19 Alkaline Phosphatase 96 Ammonia Troponin I 0.058 H* C-Reactive Protein 1.06 H Total Protein 6.2 L Albumin 1.8 L Globulin 4.4 H Albumin/Globulin Ratio 0.4 L Procalcitonin 0.22 Nasal Screen MRSA (PCR) Stl C. diff Tox B Gene Crossmatch 09/15/20 09/15/20 09/15/20 13:46 13:46 15:42 WBC RBC Hgb POC Hgb Hct POC Hct MCV MCH MCHC RDW Std Deviation RDW Coeff of Kianna Plt Count MPV Immature Gran % (Auto) Neut % (Auto) Lymph % (Auto) [place] % (Auto) Eos % (Auto) Baso % (Auto) Neut # (Auto) Lymph # (Auto) [place] # (Auto) Eos # (Auto) Baso # (Auto) Immature Gran # (Auto) Absolute Nucleated RBC Nucleated RBC % (auto) ESR Sample Site POC pH POC pCO2 POC pO2 POC HCO3 POC Total CO2 POC Base Excess ABG pH (Temp Correct) ABG pCO2 (Temp Corrct POC ABG pO2 at Pt Temp POC ABG O2 Sat Ba Test O2 Delivery Device POC O2 Rate Minute Ventilation POC FiO2 Tidal Volume PEEP POC Sodium Sodium POC Potassium Potassium Chloride Carbon Dioxide Anion Gap BUN Creatinine Est Cr Clr Drug Dosing Est GFR ( Amer) Est GFR (Non-Af Amer) BUN/Creatinine Ratio Glucose POC Glucose POC Glucose (other) Lactate 2.9 H* 2.5 H* Calcium Total Bilirubin AST ALT Alkaline Phosphatase Ammonia 36.7 H Troponin I C-Reactive Protein Total Protein Albumin Globulin Albumin/Globulin Ratio Procalcitonin Nasal Screen MRSA (PCR) Stl C. diff Tox B Gene Crossmatch 09/15/20 09/15/20 09/15/20 16:55 17:00 21:15 WBC RBC Hgb POC Hgb Hct POC Hct MCV MCH MCHC RDW Std Deviation RDW Coeff of Kianna Plt Count MPV Immature Gran % (Auto) Neut % (Auto) Lymph % (Auto) [place] % (Auto) Eos % (Auto) Baso % (Auto) Neut # (Auto) Lymph # (Auto) [place] # (Auto) Eos # (Auto) Baso # (Auto) Immature Gran # (Auto) Absolute Nucleated RBC Nucleated RBC % (auto) ESR Sample Site POC pH POC pCO2 POC pO2 POC HCO3 POC Total CO2 POC Base Excess ABG pH (Temp Correct) ABG pCO2 (Temp Corrct POC ABG pO2 at Pt Temp POC ABG O2 Sat Ba Test O2 Delivery Device POC O2 Rate Minute Ventilation POC FiO2 Tidal Volume PEEP POC Sodium Sodium POC Potassium Potassium Chloride Carbon Dioxide Anion Gap BUN Creatinine Est Cr Clr Drug Dosing Est GFR ( Amer) Est GFR (Non-Af Amer) BUN/Creatinine Ratio Glucose POC Glucose 193 H POC Glucose (other) 186 H Lactate Calcium Total Bilirubin AST ALT Alkaline Phosphatase Ammonia Troponin I C-Reactive Protein Total Protein Albumin Globulin Albumin/Globulin Ratio Procalcitonin Nasal Screen MRSA (PCR) Stl C. diff Tox B Gene Negative Cdiff Gene Crossmatch 09/16/20 09/16/20 09/16/20 04:17 04:17 04:17 WBC 3.89 L RBC 2.55 L Hgb 8.2 L POC Hgb Hct 26.2 L POC Hct MCV 102.7 H D MCH 32.2 MCHC 31.3 L RDW Std Deviation 68.9 H RDW Coeff of Kianna 18.7 H Plt Count 109 L MPV 10.3 Immature Gran % (Auto) Neut % (Auto) Lymph % (Auto) [place] % (Auto) Eos % (Auto) Baso % (Auto) Neut # (Auto) Lymph # (Auto) [place] # (Auto) Eos # (Auto) Baso # (Auto) Immature Gran # (Auto) Absolute Nucleated RBC Nucleated RBC % (auto) ESR Sample Site POC pH POC pCO2 POC pO2 POC HCO3 POC Total CO2 POC Base Excess ABG pH (Temp Correct) ABG pCO2 (Temp Corrct POC ABG pO2 at Pt Temp POC ABG O2 Sat Ba Test O2 Delivery Device POC O2 Rate Minute Ventilation POC FiO2 Tidal Volume PEEP POC Sodium Sodium 147 H POC Potassium Potassium 3.9 D Chloride 118 H Carbon Dioxide 21 Anion Gap 8.0 BUN 54 H Creatinine 5.03 H* D Est Cr Clr Drug Dosing 16.7 Est GFR ( Amer) 12.8 Est GFR (Non-Af Amer) 11.1 BUN/Creatinine Ratio 10.8 Glucose 132 H POC Glucose POC Glucose (other) Lactate Calcium 7.6 L Total Bilirubin 0.6 AST 26 ALT 17 Alkaline Phosphatase 91 Ammonia < 10.0 L Troponin I 0.390 H* C-Reactive Protein Total Protein 5.7 L Albumin 1.8 L Globulin 3.9 Albumin/Globulin Ratio 0.5 L Procalcitonin Nasal Screen MRSA (PCR) Stl C. diff Tox B Gene Crossmatch 09/16/20 04:46 WBC RBC Hgb POC Hgb 8.2 L Hct POC Hct 24 L MCV MCH MCHC RDW Std Deviation RDW Coeff of Kianna Plt Count MPV Immature Gran % (Auto) Neut % (Auto) Lymph % (Auto) [place] % (Auto) Eos % (Auto) Baso % (Auto) Neut # (Auto) Lymph # (Auto) [place] # (Auto) Eos # (Auto) Baso # (Auto) Immature Gran # (Auto) Absolute Nucleated RBC Nucleated RBC % (auto) ESR Sample Site R Radial POC pH 7.48 H POC pCO2 25 L POC pO2 77 L POC HCO3 18 L POC Total CO2 19 L POC Base Excess -5.0 ABG pH (Temp Correct) 7.481 H ABG pCO2 (Temp Corrct 24 L POC ABG pO2 at Pt Temp 75 POC ABG O2 Sat 97.0 H Ba Test Pass O2 Delivery Device Ventilator POC O2 Rate 26 Minute Ventilation 11 POC FiO2 30 Tidal Volume 450 PEEP 5 POC Sodium 145 H Sodium POC Potassium 3.9 Potassium Chloride Carbon Dioxide Anion Gap BUN Creatinine Est Cr Clr Drug Dosing Est GFR ( Amer) Est GFR (Non-Af Amer) BUN/Creatinine Ratio Glucose POC Glucose POC Glucose (other) Lactate Calcium Total Bilirubin AST ALT Alkaline Phosphatase Ammonia Troponin I C-Reactive Protein Total Protein Albumin Globulin Albumin/Globulin Ratio Procalcitonin Nasal Screen MRSA (PCR) Stl C. diff Tox B Gene Crossmatch PG Care Time/CCT Total # of Minutes Spent Total Time Spent with Patient: Total time spent is greater than 50% in coordinat ion of care (as documented) at patient's floor/unit and/or counseling patient: Coding Level of Care Code 78450 Subseq Hosp Care Lvl 3 Diagnoses CKD (chronic kidney disease), stage IV N18.4 Hypernatremia E87.0 Acute hepatic encephalopathy K72.00 Liver cirrhosis K74.60 Hepatic cirrhosis type: unspecified hepatic cirrhosis Ascites presence: without ascites (1) Liver cirrhosis Hepatic cirrhosis type: unspecified hepatic cirrhosis Ascites presence: without ascites Qualified Code(s): K74.60 - Unspecified cirrhosis of liver
[2020-09-16] MEDS: INSULIN GLARGINE SOLOSTAR 100 UNITS/ML 3 ML PEN SC SCH (09:39)
--- NOTE | 2020-09-16 10:03 | Palliative Care Progress Note ---
Date of Service September 16, 2020 Assessment & Plan (1) Palliative care encounter: Chicho was transferred to the ICU yesterday, Friday 09/15 s/p rapid response call for acute mental status change and he was obtunded. -During the rapid response, he did experience PEA and a 2 minute cycle of CPR. He did have ROSC and was intubated during the code. -He remains acutely ill and while stable hemodynamically at the moment, continues to have a grave prognosis. -His BUN is 54 and Creatinine is 5.03, trending upward. He, ultimately is oliguric with only 25 cc of urine output over a 12 hour period. -He was requiring Levophed for inotropic support; however, this was stopped this morning. His MAP are > 60. SBP mid to high 90's. -Right now, there does not appear to be an emergent need for temporary central line dialysis catheter placement, but it is anticipated that he likely may suffer another cardiac event in the near future with his worsening renal function. -I talked with Chicho's brother Tramaine @ [phone]. He was able to recall his conversation with Dr. Arce this morning. Throughout the call he stated: " oh wow, oh boy, he is really doing bad huh? -I discussed in layman term details what has occurred with Chicho and together we agreed that we can continue what we are doing at this time, but for now not proceed with any escalation in his care; i.e. including no hemodialysis, no vasopresors, no paracentesis unless we felt it would provide him with some comfort. -Continue mechanical ventilation for another day or two, but understands we may be discussing compassionate extubation. -Tramaine is comfortable with him being a DNR. Code status changed to reflect. -I talked to Kuldip the medical writer at [facility] and he is in support of where we are at right now as well, with no escalation of care. -The above has been discussed in detail with Dr. Al Antony and Dr. Espinoza. Palliative Care will follow. Admission and Anticipated Discharge Date Admission Date: August 26, 2020 Phi Valentino was transferred to the ICU yesterday, Friday 09/15 s/p rapid response call for acute mental status change and he was obtunded. During the rapid response, he did experience PEA and a 2 minute cycle of CPR. He did have ROSC and was intubated during the code. See A/P for further details. Review of Systems Review of Systems: [place] Symptom Assessment Scale patient is intubated and sedated. All symptom assessment done by observation Pain 0/3 Dyspnea 0/3 Nausea 0/3 Anxiety 0/3 Drowsiness 3/3 Palliative Performance Score 20% Physical Exam Constitutional: + ill appearing and + mechanically ventilated Respiratory: normal respiratory effort Pt intubated 8.0 25 cm at the lip CMV 0.30, Tv400, PEEP 5, RR 22. Cardiovascular: Heart Sounds: normal S1 and normal S2 Extremities: normal capillary refill and + edema Gastrointestinal (Abdomen): Percussion/Palpation: + ascites Skin: no rashes, warm and dry normal turgor Neurologic: moves all extremities Speech / Cognition: + abnormal speech and + abnormal cognition Genitourinary: oliguric Results & Data ([facility]) Vital Signs (Past 12 Hours) Vital Signs Temp Pulse Resp BP Pulse Ox 09/16/20 08:19 69 137/61 97 09/16/20 07:30 69 22 97 09/16/20 07:18 69 137/60 97 09/16/20 07:00 70 98 09/16/20 03:45 72 27 H 100 09/16/20 03:00 79 99 09/16/20 02:30 37.1 C 76 95 09/16/20 02:18 37.1 C 77 130/54 L 97 09/16/20 02:00 37.0 C 76 95 09/16/20 01:30 37.0 C 76 96 09/16/20 01:18 37.0 C 77 136/58 L 98 09/16/20 01:00 36.9 C 76 97 09/16/20 00:30 36.8 C 75 96 09/16/20 00:18 36.8 C 75 130/58 L 97 09/16/20 00:00 36.8 C 75 97 09/15/20 23:30 36.7 C 75 98 09/15/20 23:18 36.7 C 75 132/58 L 98 09/15/20 23:01 75 27 H 97 09/15/20 23:00 36.7 C 74 96 09/15/20 22:30 36.6 C 74 96 09/15/20 22:18 36.5 C 73 127/59 L 97 09/15/20 22:00 36.5 C 74 98 PG Care Time/CCT Total # of Minutes Spent Total Time Spent with Patient: Total time spent is greater than 50% in coordination of care (as documented) at patient's floor/unit and/or counseling patient: 45 Coding Level of Care Code 03505 Subseq Hosp Care Lvl 3 Diagnoses Palliative care encounter Z51.5 Time Spent (min) 45 Time Spent Midlevel Total time spent 45 minutes with > 50% of that time spent assessing the patient, discussing goals of care with family, and collaborating with IDT
--- NOTE | 2020-09-16 10:35 | Critical Care Progress Note ---
Date of Service September 16, 2020 Assessment & Plan (1) Cardiac arrest: This patient was discussed on multidisciplinary rounds. Neurologic: Patient is currently sedated with propofol and fentanyl. We will wean sedation as possible. He has acute metabolic encephalopathy related to uremia and hyperammonemia. Continue Xifaxan and lactulose. Most recent ammonia level was less than 10 on 09/16/2020. Pulmonary: Patient is on minimal vent support. His mental status is precluding the ability to extubate. He does have a right-sided pleural effusion which is likely hydrothorax from his cirrhosis and ascites. Cardiovascular: Patient had cardiac arrest yesterday, but had quick return to ROSC. Targeted temperature management was not pursued. Patient is off Levophed at this time. We will continue to monitor his hemodynamic status closely. Gastrointestinal: Continue lactulose and Xifaxan as noted above. Continue nadolol for his history of varices. We will hold off on paracentesis at this time as the family is not wanting to escalate care at this point. Renal: He is currently on hydralazine for blood pressure control. Not well for his history of esophageal varices. He has evidence of REDD and CKD. Possible hepatorenal syndrome. Nephrology has noted that hemodialysis would likely be futile in his condition. Patient is likely terminal at this point. Family is aware and they are leaning towards no escalation of care at this point. We will likely perform a compassionate extubation in the near future. Continue p.o. sodium bicarbonate. Infectious disease: Unasyn discontinued as no evidence of infection at this time. Hematologic: Hemoglobin is slowly trending downwards. No overt evidence of GI bleeding at this point. Possibly due to blood draws. Holding subcu heparin at this time. Endocrine: ICU pharmacist assisting in management of glucose. He did have evidence of hypoglycemia earlier and was on D5. Lines and tubes: ET tube, Finn, peripheral IVs in left IJ in place. VTE prophylaxis: SCD. Holding heparin CODE STATUS: He is currently a conditional code. No escalation of care. This was discussed with the [facility] palliative care provider, Dejah Lay. We appreciate their assistance. Family at bedside: None available at bedside due to the COVID-19 pandemic. Disposition: Remain in ICU today I have personally spent 51 minutes of critical care time in the direct management of this patient. This is a life/limb threatening event. This includes time spent evaluating patient, direct bedside care, chart review, placing orders, interpretation of diagnostic studies, discussion with consultants, patient, and family members, as well as other required patient management activities. This time is exclusive of all separately billable procedures, and teaching time and separate from and in addition to any other critical care service time. Thank you for allowing us to participate in the care of this patient. (2) Hypernatremia: (3) Acute hepatic encephalopathy: (4) Metabolic acidosis: (5) Bilateral edema of lower extremity: (6) Chronic renal insufficiency: (7) Type 2 diabetes mellitus: Admission and Anticipated Discharge Date Admission Date: August 26, 2020 Subjective Patient is intubated and sedated this morning. Currently on low-dose of propofol and fentanyl. Very minimal urine output overnight, approximately 25 mL. He is not following commands, but he does open his eyes spontaneously. Review of Systems Review of Systems: Unobtainable due to endotracheal tube and Unobtainable due to reduced consciousness Physical Exam Constitutional: + morbidly obese Patient is intubated and sedated. Does not appear to be in distress. Eyes: PERRL, conjunctivae normal, anicteric sclerae ENMT: external ear and nose normal, oropharynx normal Neck: normal visual inspection Respiratory: Diminished at the right lung base. Mild crackles. Coarse breath sounds on the ventilator. Cardiovascular: Regular rate and rhythm. No murmurs. 2-3+ pitting edema in the lower extremities. Gastrointestinal (Abdomen): Ventral hernia noted. Diffuse edema in the abdomen. Normal active bowel sounds. Musculoskeletal: no cyanosis or clubbing, extremities motor strength 5/5 Skin: no rashes, warm and dry Anasarca present Neurologic: Unable to fully assess due to altered mental status and intubation status. Psychiatric: Unable to assess as he is intubated. Results & Data Results & Data ([facility]) Vital Signs (Past 12 Hours) Vital Signs Temp Pulse Resp BP Pulse Ox 09/16/20 08:19 69 137/61 97 09/16/20 07:30 69 22 97 09/16/20 07:18 69 137/60 97 09/16/20 07:00 70 98 09/16/20 03:45 72 27 H 100 09/16/20 03:00 79 99 09/16/20 02:30 98.8 F 76 95 09/16/20 02:18 98.8 F 77 130/54 L 97 09/16/20 02:00 98.6 F 76 95 09/16/20 01:30 98.6 F 76 96 09/16/20 01:18 98.6 F 77 136/58 L 98 09/16/20 01:00 98.4 F 76 97 09/16/20 00:30 98.2 F 75 96 09/16/20 00:18 98.2 F 75 130/58 L 97 09/16/20 00:00 98.2 F 75 97 09/15/20 23:30 98.1 F 75 98 09/15/20 23:18 98.1 F 75 132/58 L 98 09/15/20 23:01 75 27 H 97 09/15/20 23:00 98.1 F 74 96 09/15/20 22:30 97.9 F 74 96 I reviewed the vital signs, labs and imaging. Most recent chest x-ray demonstrated right-sided pleural effusion. Recent CT abdomen suggests ascites. Coding Level of Care Code Critical Care 1st 30-74 mins Diagnoses Cardiac arrest I46.9 Hypernatremia E87.0 Acute hepatic encephalopathy K72.00 Metabolic acidosis E87.2 Bilateral edema of lower extremity R60.0 Chronic renal insufficiency N18.9 Chronic kidney disease stage: unspecified stage Type 2 diabetes mellitus E11.9; Z79.4 Diabetes mellitus group home insulin use: with intermediate frame tender use Diabetes mellitus complication status: without complication Time Spent (min) 51 (1) Chronic renal insufficiency Chronic kidney disease stage: unspecified stage Qualified Code(s): N18.9 - Chronic kidney disease, unspecified (2) Type 2 diabetes mellitus Diabetes mellitus group home insulin use: with intermediate frame tender use Diabetes mellitus complication status: without complication Qualified Code(s): E11.9 - Type 2 diabetes mellitus without complications; Z79.4 - USP (current) use of insulin
[2020-09-16 11:27] LABS: Lipase 125 U/L (73-393); Triglycerides 143 mg/dl (0-150)
[2020-09-16 11:58] LABS: iSTAT Allen Test Pass; iSTAT Art Bld Gas pCO2 Correct 43 mmHg (35-46); iSTAT Arterial Blood Gas HCO3 21 meg/L (19-24); iSTAT Arterial Blood Gas pCO2 45 mmHg (35-46); iSTAT Arterial Blood Gas pH 7.27 (7.35-7.45); iSTAT Arterial Blood Gas pO2 373 mmHg (80-95); iSTAT Arterial Blood Gas pO2 C 366; iSTAT Carbon Dioxide 22 mmol/L (24-31); iSTAT FiO2 100 %; iSTAT Hematocrit 28 % (42-52); iSTAT Hemoglobin 9.5 g/dl (14.0-18.0); iSTAT Potassium 4.6 mmol/L (3.3-5.0); iSTAT Site Art Line; iSTAT Sodium 142 mmol/L (135-144)
[2020-09-16 11:59] LABS: iSTAT Art Bld Gas pCO2 Correct 46 mmHg (35-46); iSTAT Arterial Blood Gas HCO3 20 meg/L (19-24); iSTAT Arterial Blood Gas pCO2 48 mmHg (35-46); iSTAT Arterial Blood Gas pH 7.22 (7.35-7.45); iSTAT Arterial Blood Gas pO2 43 mmHg (80-95); iSTAT Arterial Blood Gas pO2 C 40; iSTAT Carbon Dioxide 21 mmol/L (24-31); iSTAT FiO2 100 %; iSTAT Hematocrit 28 % (42-52); iSTAT Hemoglobin 9.5 g/dl (14.0-18.0); iSTAT Potassium 4.6 mmol/L (3.3-5.0); iSTAT Site Art Line; iSTAT Sodium 144 mmol/L (135-144)
[2020-09-16] MEDS ORDERED: INSULIN ASPART 100 UNITS/ML 3 ML PEN SC SCH (12:00)
[2020-09-16] MEDS: fentaNYL DRIP 1,250 MCG/250 ML BAG IV SCH (12:26)
[2020-09-16] MEDS ORDERED: NOVASOURCE RENAL 2.0 CAL 1000ML BAG NG SCH (13:00)
[2020-09-16] MEDS: TUBE FEEDING WATER FLUSH GT SCH ×3 (13:11→20:53)
--- NOTE | 2020-09-16 17:31 | Hospitalist Progress Note ---
Date of Service September 16, 2020 Assessment & Plan (1) Acute hepatic encephalopathy: Due to cirrhosis. - Continue lactulose & rifaximin as tolerating -> Had refused lactulose in the past, but now doing better. - On 09/14, he had multiple BMs, but also refused more of his lactulose. He then took an afternoon dose, but then declined the evening dose. - On 09/15, he was obtunded and could not take any by mouth. He became progressively bradycardic and hypotensive. Code purple, then code blue was called. He underwent about 2 minutes of CPR and achieved ROSC. He was then intubated for airway protection and moved to the ICU. - Still intubated on 09/16, though no escalation of care now per palliative care. (2) CKD (chronic kidney disease), stage IV: Baseline Cr ~3.0 - 4.0. - Avoid nephrotoxins - Finn - Cr presently at baseline: 5.0 today. Oliguric. - Plan for Permacath placement on Wednesday with Dr. Matamoros now in question. Canceled for now. (3) Esophageal varices without bleeding: Prior notes indicate a hx of esophageal varices, but without any EGD in our system. - Hemoglobin was at baseline (8.7 on admission), then dropped to 6.7 on 08/27. Received 1 unit PRBCs on 08/27. - Today is 8.2. Stable. - Hold nadolol (4) Hypertension: Blood pressure higher today at 160/80. - Restarted nadolol on 09/06 - Started hydralazine 10 mg QID & spironolactone 200 mg PO QAM -> Adjusting per ICU. (5) Liver cirrhosis: Due to HCV. - Hold Bumex and spironolactone (6) Type 2 diabetes mellitus: A1c was 5.4% in 06/2020. - Continue basal/bolus - Blood sugars have been 130-150 in the last 24 hours. - Glycemic pharmacy following (7) GERD (gastroesophageal reflux disease): Chronic. - Pepcid PO daily (8) DVT prophylaxis: Holding heparin per ICU Admission and Anticipated Discharge Date Admission Date: August 26, 2020 Subjective Intubated Review of Systems Review of Systems: Unobtainable due to endotracheal tube Physical Exam Constitutional: WD/WN, vitals as above + acute distress Eyes: no conjunctival abnormality ENMT: external ear and nose normal, oropharynx normal Mouth / Teeth: 1. Intubated Neck: trachea midline, no thyromegaly normal visual inspection Respiratory: + labored breathing; no respiratory distress Auscultation: + crackles Cardiovascular: RRR, no murmur, no edema Gastrointestinal (Abdomen): Inspection/Auscultation: abdomen normal to inspection, + abdomen distended and normal bowel sounds Percussion/Palpation: abdomen soft; no guarding and abdomen not rigid Skin: no rashes, warm and dry Neurologic: + does not move all extremities and + not awake Psychiatric: Orientation: + not alert and + not oriented to person Results & Data Results & Data ([facility]) Vital Signs (Past 12 Hours) Vital Signs Temp Pulse Resp BP Pulse Ox 09/16/20 15:11 62 22 98 09/16/20 14:06 36.5 C 09/16/20 14:01 61 98 09/16/20 13:59 62 113/55 L 98 09/16/20 13:46 62 98 09/16/20 13:44 61 106/48 L 98 09/16/20 13:31 62 98 09/16/20 13:29 62 114/52 L 99 09/16/20 13:16 62 98 09/16/20 13:14 62 104/51 L 98 09/16/20 13:01 62 98 09/16/20 12:59 63 111/50 L 99 09/16/20 12:46 62 99 09/16/20 12:44 63 107/48 L 99 09/16/20 12:31 63 99 09/16/20 12:29 64 122/55 L 99 09/16/20 12:16 62 99 09/16/20 12:14 62 111/53 L 99 09/16/20 12:01 62 99 09/16/20 11:59 63 105/50 L 99 09/16/20 11:46 63 99 09/16/20 11:44 63 107/48 L 100 09/16/20 11:31 63 99 09/16/20 11:29 63 105/48 L 99 09/16/20 11:25 63 22 98 09/16/20 11:16 63 99 09/16/20 11:14 62 110/48 L 99 09/16/20 11:12 36.6 C 09/16/20 11:10 63 99 09/16/20 11:01 63 99 09/16/20 10:59 63 100/47 L 98 09/16/20 10:50 63 99 09/16/20 10:44 63 104/45 L 99 09/16/20 10:40 64 99 09/16/20 10:31 63 98 09/16/20 10:29 63 96/47 L 99 09/16/20 10:20 64 98 09/16/20 10:14 64 97/48 L 98 09/16/20 10:10 64 97 09/16/20 10:01 64 96 09/16/20 09:59 63 89/43 L 96 09/16/20 09:50 63 97 09/16/20 09:44 64 93/42 L 98 09/16/20 09:40 64 99 09/16/20 09:31 64 99 09/16/20 09:29 64 99/47 L 100 09/16/20 09:23 66 113/50 L 98 09/16/20 09:20 67 97 09/16/20 09:14 69 151/65 H 97 09/16/20 09:10 68 98 09/16/20 09:00 68 97 09/16/20 08:50 68 97 09/16/20 08:40 68 98 09/16/20 08:30 69 98 09/16/20 08:20 68 97 09/16/20 08:19 69 137/61 97 09/16/20 07:30 69 22 97 09/16/20 07:18 69 137/60 97 09/16/20 07:00 70 98 PG Care Time/CCT Total # of Minutes Spent Total Time Spent with Patient: Total time spent is greater than 50% in coordination of care (as documented) at patient's floor/unit and/or counseling patient: Coding Level of Care Code 35732 Subseq Hosp Care Lvl 2 Diagnoses Acute hepatic encephalopathy K72.00 CKD (chronic kidney disease), stage IV N18.4 Esophageal varices without bleeding I85.00 Esophageal varices type: unspecified type Hypertension I10 Hypertension type: essential hypertension Liver cirrhosis K74.60 Hepatic cirrhosis type: unspecified hepatic cirrhosis Ascites presence: without ascites Type 2 diabetes mellitus E11.9; Z79.4 Diabetes mellitus long-term insulin use: with long-term use Diabetes mellitus complication status: without complication GERD (gastroesophageal reflux disease) K21.9 Esophagitis presence: esophagitis presence not specified DVT prophylaxis Z29.9 (1) Esophageal varices without bleeding Esophageal varices type: unspecified type Qualified Code(s): I85.00 - Esophageal varices without bleeding (2) Hypertension Hypertension type: essential hypertension Qualified Code(s): I10 - Essential (primary) hypertension (3) Liver cirrhosis Hepatic cirrhosis type: unspecified hepatic cirrhosis Ascites presence: without ascites Qualified Code(s): K74.60 - Unspecified cirrhosis of liver (4) Type 2 diabetes mellitus Diabetes mellitus long-term insulin use: with long-term use Diabetes mellitus complication status: without complication Qualified Code(s): E11.9 - Type 2 diabetes mellitus without complications; Z79.4 - senior care (current) use of insulin (5) GERD (gastroesophageal reflux disease) Esophagitis presence: esophagitis presence not specified Qualified Code(s): K21.9 - Gastro-esophageal reflux disease without esophagitis
[2020-09-16 23:24] VITALS: O2SAT 100
[2020-09-17] MEDS: INSULIN ASPART 100 UNITS/ML 3 ML PEN SC SCH ×3 (00:12→09:39)
[2020-09-17] MEDS: TUBE FEEDING WATER FLUSH GT SCH ×3 (02:04→09:35)
[2020-09-17] MEDS: propofoL 1,000 MG/100 ML VIAL IV SCH (04:11)
[2020-09-17 05:34] LABS: Hematocrit (blood only) 24.6 % (42-52); Hemoglobin 7.9 g/dL (14.0-18.0); Mean Corpuscular Hemoglobin 32.8 pg (25-34); Mean Corpuscular Hgb Conc 32.1 g/dL (32-36); Mean Corpuscular Volume 102.1 fL (80-100); Nucleated RBC # (auto) 0.03 K/uL (0-0); Nucleated RBC % (auto) 1.4 %; RDW Coefficient of Variation 18.5 % (11.5-14.5); RDW Standard Deviation 68.9 fL (36.4-46.3); Red Blood Count 2.41 M/uL (4.7-6.1); White Blood Count 1.85 K/uL (4.8-10.8)
[2020-09-17 05:34] LABS: iSTAT Allen Test Pass; iSTAT Art Bld Gas pCO2 Correct 24 mmHg (35-46); iSTAT Art Bld Gas pH Corrected 7.473 (7.35-7.45); iSTAT Arterial Blood Gas HCO3 17 meg/L (19-24); iSTAT Arterial Blood Gas pCO2 24 mmHg (35-46); iSTAT Arterial Blood Gas pH 7.47 (7.35-7.45); iSTAT Arterial Blood Gas pO2 82 mmHg (80-95); iSTAT Arterial Blood Gas pO2 C 80; iSTAT Carbon Dioxide 18 mmol/L (24-31); iSTAT FiO2 30 %; iSTAT Hematocrit 29 % (42-52); iSTAT Hemoglobin 9.9 g/dl (14.0-18.0); iSTAT Potassium 3.3 mmol/L (3.3-5.0); iSTAT Site R Radial; iSTAT Sodium 145 mmol/L (135-144)
[2020-09-17 06:07] LABS: Mean Platelet Volume 10.5 fL (7.4-10.4); Platelet Count 93 K/uL (130-400)
[2020-09-17 06:08] LABS: Basophils # (auto) 0.01 K/uL (0-0.2); Basophils % (auto) 0.5 %; Eosinophils # (auto) 0.05 K/uL (0-0.5); Eosinophils % (auto) 2.7 %; Lymphocytes # (auto) 0.52 K/uL (1.2-3.4); Lymphocytes % (auto) 28.1 %; Monocytes # (auto) 0.26 K/uL (0.11-0.59); Monocytes % (auto) 14.1 %; Neutrophils # (auto) 1.01 K/uL (1.4-6.5); Neutrophils % (auto) 54.6 %; Platelet Estimate Decreased (Normal); RBC Morphology Unremarkable
[2020-09-17 06:16] LABS: BUN Creatinine Ratio 9.8 (10-20); Calcium 7.1 mg/dl (8.5-10.1); Creatinine Clr Calc Pharmacy 14.7 ml/min; Est GFR (African American) 10.9; Est GFR (Non-African American) 9.4; Magnesium 1.8 mg/dl (1.8-2.4); Phosphorus 3.8 mg/dl (2.5-4.9); Potassium 3.3 mmol/L (3.5-5.1)
--- NOTE | 2020-09-17 07:55 | Critical Care Progress Note ---
Date of Service September 17, 2020 Assessment & Plan (1) Cardiac arrest: This patient was discussed on multidisciplinary rounds. Neurologic: Patient is currently sedated with propofol and fentanyl. We will wean sedation as possible. He has acute metabolic encephalopathy related to uremia and hyperammonemia. Continue Xifaxan and lactulose. Most recent ammonia level was less than 10 on 09/16/2020. Pulmonary: Patient is on minimal vent support. His mental status is precluding the ability to extubate. He does have a right-sided pleural effusion which is likely hydrothorax from his cirrhosis and ascites. Cardiovascular: Patient had cardiac arrest 2 days ago, but had quick return to ROSC. Targeted temperature management was not pursued. Patient is off Levophed at this time. We will continue to monitor his hemodynamic status closely. Gastrointestinal: Continue lactulose and Xifaxan as noted above. Holding nadolol at this time given intermittent hypotension.. We will hold off on paracentesis at this time as the family is not wanting to escalate care at this point. Renal: He is currently on hydralazine as needed for blood pressure control. He has evidence of REDD and CKD. Possible hepatorenal syndrome. Nephrology has noted that hemodialysis would likely be futile in his condition. Patient is likely terminal at this point. Family is aware and they are leaning towards no escalation of care at this point. We will likely perform a compassionate extubation in the near future. Continue p.o. sodium bicarbonate. Infectious disease: Unasyn discontinued as no evidence of infection at this time. No other concerns at this time. Hematologic: Hemoglobin is stable. No overt evidence of GI bleeding at this point. Possibly due to blood draws. Holding subcu heparin at this time. Endocrine: ICU pharmacist assisting in management of glucose. No significant issues currently. Lines and tubes: ET tube, Finn, peripheral IVs in left IJ in place. VTE prophylaxis: SCD. Holding heparin CODE STATUS: He is currently a conditional code. No escalation of care. We will have to readdress a potential compassionate extubation today. Family at bedside: None available at bedside due to the COVID-19 pandemic. Disposition: We will proceed with palliative extubation later today. No further escalation of care at this time. I have personally spent 32 minutes of critical care time in the direct management of this patient. This is a life/limb threatening event. This includes time spent evaluating patient, direct bedside care, chart review, placing orders, interpretation of diagnostic studies, discussion with consultants, patient, and family members, as well as other required patient management activities. This time is exclusive of all separately billable procedures, and teaching time and separate from and in addition to any other critical care service time. Thank you for allowing us to participate in the care of this patient. (2) Hypernatremia: (3) Acute hepatic encephalopathy: (4) Metabolic acidosis: (5) Bilateral edema of lower extremity: (6) Chronic renal insufficiency: (7) Type 2 diabetes mellitus: Admission and Anticipated Discharge Date Admission Date: August 26, 2020 Subjective Patient laying in ICU bed. He is currently intubated and sedated on propofol and fentanyl. Nonresponsive to commands. Currently on minimal vent settings. Urine output has been poor over the last 24 hours. No fevers. Unable to obtain review of systems due to intubation status. Physical Exam Constitutional: + morbidly obese Patient is intubated and sedated. Does not appear to be in distress. Eyes: PERRL, conjunctivae normal, anicteric sclerae ENMT: external ear and nose normal, oropharynx normal Neck: normal visual inspection Respiratory: Diminished at the right lung base. Mild crackles. Coarse breath sounds on the ventilator. Cardiovascular: Regular rate and rhythm. No murmurs. 2-3+ pitting edema in the lower extremities. Gastrointestinal (Abdomen): Ventral hernia noted. Diffuse edema in the abdomen. Normal active bowel sounds. Musculoskeletal: no cyanosis or clubbing, extremities motor strength 5/5 Skin: no rashes, warm and dry Anasarca present Neurologic: Unable to fully assess due to altered mental status and intubation status. Psychiatric: Unable to assess as he is intubated. Results & Data Results & Data ([facility]) Vital Signs (Past 12 Hours) Vital Signs Temp Pulse Resp BP Pulse Ox 09/17/20 06:00 55 L 112/55 L 100 09/17/20 05:45 55 L 115/54 L 100 09/17/20 05:30 56 L 105/54 L 100 09/17/20 05:15 56 L 109/53 L 99 09/17/20 05:00 57 L 110/62 100 09/17/20 04:45 57 L 111/53 L 99 09/17/20 04:30 58 L 106/55 L 100 09/17/20 04:15 60 116/59 L 98 09/17/20 04:00 60 112/60 96 09/17/20 03:45 58 L 109/52 L 100 09/17/20 03:30 57 L 114/58 L 100 09/17/20 03:15 58 L 117/55 L 100 09/17/20 03:00 58 L 117/55 L 100 09/17/20 02:45 58 L 106/53 L 100 09/17/20 02:30 60 22 112/55 L 100 09/17/20 02:15 60 108/53 L 100 09/17/20 02:00 61 116/58 L 98 09/17/20 01:45 59 L 99/48 L 100 09/17/20 01:30 59 L 106/57 L 100 09/17/20 01:15 59 L 106/54 L 100 09/17/20 01:00 60 116/60 98 09/17/20 00:45 59 L 112/52 L 99 09/17/20 00:30 58 L 106/50 L 100 09/17/20 00:15 59 L 104/49 L 100 09/17/20 00:00 59 L 107/50 L 100 09/16/20 23:45 58 L 114/54 L 100 09/16/20 23:30 58 L 105/50 L 100 09/16/20 23:15 58 L 108/50 L 100 09/16/20 23:00 57 L 105/50 L 100 09/16/20 22:50 57 L 23 100 09/16/20 22:45 58 L 116/57 L 99 09/16/20 22:30 58 L 113/56 L 99 09/16/20 22:15 60 107/51 L 99 09/16/20 22:00 97.2 F L 61 114/51 L 99 09/16/20 21:45 59 L 109/50 L 100 09/16/20 21:39 59 L 118/51 L 98 09/16/20 21:00 59 L 99 09/16/20 20:00 58 L 100 reviewed vital signs, labs and chest x-ray imaging. Large right-sided pleural effusion noted. Stable lines and tubes. Coding Level of Care Code Critical Care 1st 30-74 mins Diagnoses Cardiac arrest I46.9 Hypernatremia E87.0 Acute hepatic encephalopathy K72.00 Metabolic acidosis E87.2 Bilateral edema of lower extremity R60.0 Chronic renal insufficiency N18.9 Chronic kidney disease stage: unspecified stage Type 2 diabetes mellitus E11.9; Z79.4 Diabetes mellitus complication status: without complication Diabetes mellitus fdc insulin use: with field agent use Time Spent (min) 32 (1) Type 2 diabetes mellitus Diabetes mellitus complication status: without complication Diabetes mellitus fdc insulin use: with fdc use Qualified Code(s): E11.9 - Type 2 diabetes mellitus without complications; Z79.4 - utility repairer (current) use of insulin (2) Chronic renal insufficiency Chronic kidney disease stage: unspecified stage Qualified Code(s): N18.9 - Chronic kidney disease, unspecified
--- NOTE | 2020-09-17 08:01 | XRay Report ---
XR chest 1V portable CLINICAL HISTORY: f/u COMPARISON STUDY: Chest radiograph September 16, 2020. FINDINGS: Tip of the endotracheal tube is 3.3 cm above the lizette. Left internal jugular central line remains in place. Tip of nasogastric tube is below the lower aspect of this image but at least withi n the body of the stomach. There is no pneumothorax. Moderate to large right pleural effusion has inc reased. Right lung aeration has diminished. There is persistent pulmonary edema. Left basilar opacity persists. Cardiomediastinal silhouette is stable. IMPRESSION: 1. Satisfactory positioning of lines and tubes. 2. Increase in a moderate to large right pleural effusion with decreased aeration of the right lung. Persistent bilateral airspace opacities. 3. Persistent pulmonary edema. ACT 112: Negative or not required by law. Electronically signed by: Polo Banegas M.D. 09/17/2020 8:00 AM
[2020-09-17] MEDS: rifAXIMin 550 MG TABLET PO SCH (09:18)
[2020-09-17] MEDS: BUMETANIDE 3 MG in SYRINGE 0 ML IV SCH (09:18)
[2020-09-17] MEDS: LACTULOSE SYRUP 20 GM/30 ML UDC PO SCH (09:18)
[2020-09-17] MEDS: FAMOTIDINE 20 MG TAB PO SCH (09:35)
[2020-09-17] MEDS: INSULIN GLARGINE SOLOSTAR 100 UNITS/ML 3 ML PEN SC SCH (09:40)
[2020-09-17] MEDS: NOREPINEPHRINE/D5W 8 MG/508 ML BAG IV SCH (09:40)
--- NOTE | 2020-09-17 09:47 | Nephrology Progress Note ---
Date of Service September 17, 2020 Assessment & Plan (1) CKD (chronic kidney disease), stage IV: -- Advanced CKD with superimposed ATN -- Goals of care - no escalation of care (HD will not be included in care plan) -- Electrolytes acceptable -- Continue Bumex to encourage urine output -- Medications are appropriately dosed for kidney dysfunction -- Prognosis is unfortunately very poor -- Probability of any meaningful kidney recovery is very low (2) Acute hepatic encephalopathy: (3) Liver cirrhosis: Admission and Anticipated Discharge Date Admission Date: August 26, 2020 Subjective Remains intubated on vent. No acute events overnight. Sedation currently infusing during my evaluation. Some agitation but no purposeful response when sedation weaned. UOP 350 ml in past 24 hours. I discussed the plan of care with the palliative care team and Dr. Antony this AM. Review of Systems Review of Systems: Unobtainable due to cognitive status and Unobtainable due to endotracheal tube Physical Exam Constitutional: + edematous; no acute distress Eyes: + anicteric sclerae ENMT: ETT Neck: normal visual inspection and trachea midline Respiratory: normal respiratory effort Auscultation: + diminished lung sounds and + rales Cardiovascular: Rate/Rhythm: regular rate Heart Sounds: normal S1 and normal S2 Extremities: + edema Gastrointestinal (Abdomen): Inspection/Auscultation: normal bowel sounds Percussion/Palpation: abdomen soft Musculoskeletal: Extremities: no cyanosis and no clubbing Skin: normal turgor; no lesions Neurologic: + obtunded Results & Data ([facility]) Vital Signs (Past 12 Hours) Vital Signs Temp Pulse Resp BP Pulse Ox 09/17/20 07:20 54 L 18 100 09/17/20 06:00 55 L 112/55 L 100 09/17/20 05:45 55 L 115/54 L 100 09/17/20 05:30 56 L 105/54 L 100 09/17/20 05:15 56 L 109/53 L 99 09/17/20 05:00 57 L 110/62 100 09/17/20 04:45 57 L 111/53 L 99 09/17/20 04:30 58 L 106/55 L 100 09/17/20 04:15 60 116/59 L 98 09/17/20 04:00 60 112/60 96 09/17/20 03:45 58 L 109/52 L 100 09/17/20 03:30 57 L 114/58 L 100 09/17/20 03:15 58 L 117/55 L 100 09/17/20 03:00 58 L 117/55 L 100 09/17/20 02:45 58 L 106/53 L 100 09/17/20 02:30 60 22 112/55 L 100 09/17/20 02:15 60 108/53 L 100 09/17/20 02:00 61 116/58 L 98 09/17/20 01:45 59 L 99/48 L 100 09/17/20 01:30 59 L 106/57 L 100 09/17/20 01:15 59 L 106/54 L 100 09/17/20 01:00 60 116/60 98 09/17/20 00:45 59 L 112/52 L 99 09/17/20 00:30 58 L 106/50 L 100 09/17/20 00:15 59 L 104/49 L 100 09/17/20 00:00 59 L 107/50 L 100 09/16/20 23:45 58 L 114/54 L 100 09/16/20 23:30 58 L 105/50 L 100 09/16/20 23:15 58 L 108/50 L 100 09/16/20 23:00 57 L 105/50 L 100 09/16/20 22:50 57 L 23 100 09/16/20 22:45 58 L 116/57 L 99 09/16/20 22:30 58 L 113/56 L 99 09/16/20 22:15 60 107/51 L 99 09/16/20 22:00 36.2 C L 61 114/51 L 99 Laboratory Results Laboratory Results - last 24 hr 09/15/20 09/15/20 09/16/20 13:39 14:06 04:17 WBC RBC Hgb POC Hgb 9.5 L 9.5 L Hct POC Hct 28 L 28 L MCV MCH MCHC RDW Std Deviation RDW Coeff of Kianna Plt Count MPV Immature Gran % (Auto) Neut % (Auto) Lymph % (Auto) [place] % (Auto) Eos % (Auto) Baso % (Auto) Neut # (Auto) Lymph # (Auto) [place] # (Auto) Eos # (Auto) Baso # (Auto) Immature Gran # (Auto) Absolute Nucleated RBC Nucleated RBC % (auto) Platelet Estimate RBC Morphology Sample Site Art Line Art Line POC pH 7.22 L 7.27 L POC pCO2 48 H 45 POC pO2 43 L 373 H POC HCO3 20 21 POC Total CO2 21 L 22 L POC Base Excess -8.0 -6.0 ABG pH (Temp Correct) 7.240 L 7.290 L ABG pCO2 (Temp Corrct 46 43 POC ABG pO2 at Pt Temp 40 366 POC ABG O2 Sat 69.0 L 100.0 H Ba Test NA Pass O2 Delivery Device Ventilator Ventilator POC O2 Rate 22 22 Minute Ventilation 10 POC FiO2 100 100 Tidal Volume 450 5004 PEEP 10 10 POC Sodium 144 142 Sodium POC Potassium 4.6 4.6 Potassium Chloride Carbon Dioxide Anion Gap BUN Creatinine Est Cr Clr Drug Dosing Est GFR ( Amer) Est GFR (Non-Af Amer) BUN/Creatinine Ratio Glucose POC Glucose Calcium Phosphorus Magnesium Triglycerides 143 Lipase 125 09/16/20 09/16/20 09/16/20 12:25 16:33 21:16 WBC RBC Hgb POC Hgb Hct POC Hct MCV MCH MCHC RDW Std Deviation RDW Coeff of Kianna Plt Count MPV Immature Gran % (Auto) Neut % (Auto) Lymph % (Auto) [place] % (Auto) Eos % (Auto) Baso % (Auto) Neut # (Auto) Lymph # (Auto) [place] # (Auto) Eos # (Auto) Baso # (Auto) Immature Gran # (Auto) Absolute Nucleated RBC Nucleated RBC % (auto) Platelet Estimate RBC Morphology Sample Site POC pH POC pCO2 POC pO2 POC HCO3 POC Total CO2 POC Base Excess ABG pH (Temp Correct) ABG pCO2 (Temp Corrct POC ABG pO2 at Pt Temp POC ABG O2 Sat Ba Test O2 Delivery Device POC O2 Rate Minute Ventilation POC FiO2 Tidal Volume PEEP POC Sodium Sodium POC Potassium Potassium Chloride Carbon Dioxide Anion Gap BUN Creatinine Est Cr Clr Drug Dosing Est GFR ( Amer) Est GFR (Non-Af Amer) BUN/Creatinine Ratio Glucose POC Glucose 146 H 130 H 124 H Calcium Phosphorus Magnesium Triglycerides Lipase 09/16/20 09/17/20 09/17/20 23:56 04:13 04:51 WBC 1.85 L RBC 2.41 L Hgb 7.9 L POC Hgb Hct 24.6 L POC Hct MCV 102.1 H MCH 32.8 MCHC 32.1 RDW Std Deviation 68.9 H RDW Coeff of Kianna 18.5 H Plt Count 93 L MPV 10.5 H Immature Gran % (Auto) 0.0 Neut % (Auto) 54.6 Lymph % (Auto) 28.1 [place] % (Auto) 14.1 Eos % (Auto) 2.7 Baso % (Auto) 0.5 Neut # (Auto) 1.01 L Lymph # (Auto) 0.52 L [place] # (Auto) 0.26 Eos # (Auto) 0.05 Baso # (Auto) 0.01 Immature Gran # (Auto) 0.00 Absolute Nucleated RBC 0.03 H Nucleated RBC % (auto) 1.4 Platelet Estimate Decreased L RBC Morphology Unremarkable Sample Site POC pH POC pCO2 POC pO2 POC HCO3 POC Total CO2 POC Base Excess ABG pH (Temp Correct) ABG pCO2 (Temp Corrct POC ABG pO2 at Pt Temp POC ABG O2 Sat Ba Test O2 Delivery Device POC O2 Rate Minute Ventilation POC FiO2 Tidal Volume PEEP POC Sodium Sodium POC Potassium Potassium Chloride Carbon Dioxide Anion Gap BUN Creatinine Est Cr Clr Drug Dosing Est GFR ( Amer) Est GFR (Non-Af Amer) BUN/Creatinine Ratio Glucose POC Glucose 151 H 154 H Calcium Phosphorus Magnesium Triglycerides Lipase 09/17/20 09/17/20 09/17/20 04:51 05:19 09:37 WBC RBC Hgb POC Hgb 9.9 L Hct POC Hct 29 L MCV MCH MCHC RDW Std Deviation RDW Coeff of Kianna Plt Count MPV Immature Gran % (Auto) Neut % (Auto) Lymph % (Auto) [place] % (Auto) Eos % (Auto) Baso % (Auto) Neut # (Auto) Lymph # (Auto) [place] # (Auto) Eos # (Auto) Baso # (Auto) Immature Gran # (Auto) Absolute Nucleated RBC Nucleated RBC % (auto) Platelet Estimate RBC Morphology Sample Site R Radial POC pH 7.47 H POC pCO2 24 L POC pO2 82 POC HCO3 17 L POC Total CO2 18 L POC Base Excess -6.0 ABG pH (Temp Correct) 7.473 H ABG pCO2 (Temp Corrct 24 L POC ABG pO2 at Pt Temp 80 POC ABG O2 Sat 97.0 H Ba Test Pass O2 Delivery Device Ventilator POC O2 Rate 22 Minute Ventilation 9.9 POC FiO2 30 Tidal Volume 450 PEEP 5 POC Sodium 145 H Sodium 147 H POC Potassium 3.3 Potassium 3.3 L D Chloride 118 H Carbon Dioxide 19 L Anion Gap 10.0 BUN 57 H Creatinine 5.77 H* D Est Cr Clr Drug Dosing 14.7 Est GFR ( Amer) 10.9 Est GFR (Non-Af Amer) 9.4 BUN/Creatinine Ratio 9.8 L Glucose 155 H POC Glucose 166 H Calcium 7.1 L Phosphorus 3.8 Magnesium 1.8 Triglycerides Lipase PG Care Time/CCT Total # of Minutes Spent Total Time Spent with Patient: Total time spent is greater than 50% in coordination of care (as documented) at patient's floor/unit and/or counseling patient: Coding Level of Care Code 21974 Subseq Hosp Care Lvl 3 Diagnoses CKD (chronic kidney disease), stage IV N18.4 Acute hepatic encephalopathy K72.00 Liver cirrhosis K74.60 Ascites presence: without ascites Hepatic cirrhosis type: unspecified hepatic cirrhosis (1) Liver cirrhosis Ascites presence: without ascites Hepatic cirrhosis type: unspecified hepatic cirrhosis Qualified Code(s): K74.60 - Unspecified cirrhosis of liver
--- NOTE | 2020-09-17 09:47 | Palliative Care Progress Note ---
Date of Service September 17, 2020 Assessment & Plan (1) Palliative care encounter: Chicho was transferred to the ICU on Friday 09/15 s/p rapid response call for acute mental status change and he was obtunded. -During the rapid response, he did experience PEA and a 2 minute cycle of CPR. He did have ROSC and was intubated during the code. -He remains acutely ill and while stable hemodynamically at the moment, continues to have a grave prognosis. -Yesterday, we had a lengthy discussion with Chicho's brother Tramaine who decided that he did not want any escalation in care for his brother including no hemodialysis, no vasopressors, no paracentesis unless we felt it would provide him with some comfort. -He was transitioned yesterday to a DNR. -This morning I called Tramaine again. Chicho only opens his eyes slightly to deep suctioning, he remains oliguric and overall grave in prognosis. -We discussed that we typically like to extubate and see how the individual does, but set the expectation that his metabolic encephalopathy is too severe that he would not be able to protect his airway once extubated. -We discussed comfort measures only and Tramaine consented to a compassionate extubation and does understand that he will pass away rather quickly. -I called DEEPIKA Braxton and talked with Jolene in [facility] who also was in support of the transition to CONTACT CENTER ASSISTANT with extubation. She stated she will relay the information to Dr. Rm. -All non comfort focused medications have been discontinued, including blood draws. Patient does have a low dose of Fentanyl infusing, will continue post extubation. Additional orders placed for IV Ativan, IV Robinul, and IV Morphine. -Life expectancy hours to possibly a day or so. -The above has been discussed in detail with KENISHA Morales, KENISHA Levine, Dr. Al Antony and Dr. Espinoza. Palliative Care will follow. Admission and Anticipated Discharge Date Admission Date: August 26, 2020 Subjective Remains intubated on ventilator. No acute events overnight; however, no progress noted. Some agitation but no purposeful response when sedation weaned. See A/P for further details. Review of Systems Review of Systems: [place] Symptom Assessment Scale patient is intubated and sedated. All symptom assessment done by observation Pain 0/3 Dyspnea 0/3 Nausea 0/3 Anxiety 0/3 Drowsiness 3/3 Palliative Performance Score 20% Physical Exam Constitutional: + ill appearing and + mechanically ventilated Respiratory: normal respiratory effort Cardiovascular: Heart Sounds: normal S1 and normal S2 Extremities: normal capillary refill and + edema Gastrointestinal (Abdomen): Percussion/Palpation: + ascites Skin: no rashes, warm and dry normal turgor Neurologic: moves all extremities Speech / Cognition: + abnormal speech and + abnormal cognition Results & Data ([facility]) Vital Signs (Past 12 Hours) Vital Signs Temp Pulse Resp BP Pulse Ox 09/17/20 07:20 54 L 18 100 09/17/20 06:00 55 L 112/55 L 100 09/17/20 05:45 55 L 115/54 L 100 09/17/20 05:30 56 L 105/54 L 100 09/17/20 05:15 56 L 109/53 L 99 09/17/20 05:00 57 L 110/62 100 09/17/20 04:45 57 L 111/53 L 99 09/17/20 04:30 58 L 106/55 L 100 09/17/20 04:15 60 116/59 L 98 09/17/20 04:00 60 112/60 96 09/17/20 03:45 58 L 109/52 L 100 09/17/20 03:30 57 L 114/58 L 100 09/17/20 03:15 58 L 117/55 L 100 09/17/20 03:00 58 L 117/55 L 100 09/17/20 02:45 58 L 106/53 L 100 09/17/20 02:30 60 22 112/55 L 100 09/17/20 02:15 60 108/53 L 100 09/17/20 02:00 61 116/58 L 98 09/17/20 01:45 59 L 99/48 L 100 09/17/20 01:30 59 L 106/57 L 100 09/17/20 01:15 59 L 106/54 L 100 09/17/20 01:00 60 116/60 98 09/17/20 00:45 59 L 112/52 L 99 09/17/20 00:30 58 L 106/50 L 100 09/17/20 00:15 59 L 104/49 L 100 09/17/20 00:00 59 L 107/50 L 100 09/16/20 23:45 58 L 114/54 L 100 09/16/20 23:30 58 L 105/50 L 100 09/16/20 23:15 58 L 108/50 L 100 09/16/20 23:00 57 L 105/50 L 100 09/16/20 22:50 57 L 23 100 09/16/20 22:45 58 L 116/57 L 99 09/16/20 22:30 58 L 113/56 L 99 09/16/20 22:15 60 107/51 L 99 09/16/20 22:00 36.2 C L 61 114/51 L 99 PG Care Time/CCT Total # of Minutes Spent Total Time Spent with Patient: Total time spent is greater than 50% in coordination of care (as documented) at patient's floor/unit and/or counseling patient: 45 Coding Level of Care Code 41429 Subseq Hosp Care Lvl 3 Diagnoses Palliative care encounter Z51.5 Time Spent (min) 45 Time Spent Midlevel Total time spent 45 minutes with 50% of that time spent assessing the patient, discussing goals of care with the patients brother and Irais SCI, and collaborating with IDT
[2020-09-17] MEDS ORDERED: LORazepam 1 MG/2 ML VIAL IV PRN (10:12)
[2020-09-17] MEDS ORDERED: GLYCOPYRROLATE 0.2 MG/ML VIAL IV PRN (10:12)
[2020-09-17] MEDS ORDERED: MoRPHine SULFATE 2 MG/ML CARP IV PRN (10:16)
[2020-09-17 11:10] VITALS: BP 107/56; TEMP 96.8
--- NOTE | 2020-09-17 11:43 | XCELERA ---
[id number]
[2020-09-17 11:44] VITALS: PULSE 40
[2020-09-17] MEDS: fentaNYL DRIP 1,250 MCG/250 ML BAG IV SCH ×2 (13:52→15:55)
--- NOTE | 2020-09-17 16:38 | Discharge Summary ---
Date of Service September 17, 2020 Admission HPI Per Admitting Provider Patient obtunded, unable to answer questions or participate in exam. History obtained through discussion with ER attending and chart review. Chicho Moreira is a 65yo male with history of hepatic cirrhosis with varices, CKD, DM/HTN/HLP. Patient was recently admitted for anasarca from 08/21 - 08/22. He was diuresed with Bumex and ultimately returned to [facility]. Per COs at bedside, patient has [facility] since returning home from the hospital. His mental status has been progressively declining. He returns to [facility] today for unresponsiveness. On arrival to the ER patient found to be hypothermic with Tc=30.9, bradycardic at 38, BP normal, RR=16 saturating 94% on 10L oxymask ER Course: Principal Diagnosis Hepatic encephalopathy Kidney failure Discharge Exam Constitutional WD/WN, vitals as above + acute distress Eyes no conjunctival abnormality ENMT external ear and nose normal, oropharynx normal Neck trachea midline, no thyromegaly normal visual inspection Respiratory normal respiratory effort, lungs clear to auscultation + labored breathing; no respiratory distress Auscultation: + crackles Cardiovascular RRR, no murmur, no edema Gastrointestinal (Abdomen) Inspection/Auscultation: abdomen normal to inspection, + abdomen distended and normal bowel sounds Percussion/Palpation: abdomen soft; no guarding and abdomen not rigid Musculoskeletal no cyanosis or clubbing, extremities motor strength 5/5 Skin no rashes, warm and dry Neurologic + does not move all extremities and + not awake Psychiatric Orientation: + not alert and + not oriented to person Discharge Data Allergies Allergy/AdvReac Type Severity Reaction Status Date / Time No Known Drug Allergies Allergy NKDA Unverified 08/26/20 04:25 Consultations 08/26/20 05:23 ED Decision to Admit Stat 08/26/20 08:06 Consult Case Management - Discharge Planning Routine Consult Community Cultural Development Officer Routine 08/27/20 15:07 Consult Cardiology Routine 08/30/20 09:50 Consult Palliative Care Routine 09/13/20 14:56 Consult Vascular Surgery Routine 09/13/20 15:04 Consult Case Management - Discharge Planning Routine 09/15/20 14:05 Consult Community Cultural Development Officer Stat Procedures Performed Operation Date: 09/16/20 07:35 <No data on this case meets the specified criteria> Ordered Studies 08/26/20 06:21 CT head/brain wo con Urgent 08/27/20 04:58 CT abd pelvis wo con Urgent 09/15/20 12:10 US point of care ultrasound Urgent Hospital Course (1) Acute hepatic encephalopathy: Compassionate extubation on 09/17 in consent with family and SCI Irais. - Notified by nurse that the patient had at 16:14. Confirmed with no pulse, no breath sounds, no pupil responses. Due to cirrhosis. - Continue lactulose & rifaximin as tolerating -> Had refused lactulose in the past, but now doing better. - On 09/14, he had multiple BMs, but also refused more of his lactulose. He then took an afternoon dose, but then declined the evening dose. - On 09/15, he was obtunded and could not take any by mouth. He became progressively bradycardic and hypotensive. Code purple, then code blue was called. He underwent about 2 minutes of CPR and achieved ROSC. He was then intubated for airway protection and moved to the ICU. - Still intubated on 09/16, though no escalation of care now per palliative care. (2) CKD (chronic kidney disease), stage IV: Baseline Cr ~3.0 - 4.0. - Avoid nephrotoxins - Finn - Cr presently at baseline: 5.0 today. Oliguric. - Plan for Permacath placement on Wednesday with Dr. Matamoros now in question. Canceled for now. (3) Esophageal varices without bleeding: Prior notes indicate a hx of esophageal varices, but without any EGD in our system. - Hemoglobin was at baseline (8.7 on admission), then dropped to 6.7 on 08/27. Received 1 unit PRBCs on 08/27. - Today is 8.2. Stable. - Hold nadolol (4) Hypertension: Blood pressure higher today at 160/80. - Restarted nadolol on 09/06 - Started hydralazine 10 mg QID & spironolactone 200 mg PO QAM -> Adjusting per ICU. (5) Liver cirrhosis: Due to HCV. - Hold Bumex and spironolactone (6) Type 2 diabetes mellitus: A1c was 5.4% in 06/2020. - Continue basal/bolus - Blood sugars have been 130-150 in the last 24 hours. - Glycemic pharmacy following (7) GERD (gastroesophageal reflux disease): Chronic. - Pepcid PO daily (8) DVT prophylaxis: Holding heparin per ICU Total Time Total Time Spent Total Time Spent (In Minutes): 35 Discharge Plan Discharge Items Patient Disposition: Discharge Diagnosis: Hepatic encephalpathy Addtl Attending Provider Instructions: Coding Level of Care Code D/C Day Management >30 mins Diagnoses Acute hepatic encephalopathy K72.00 CKD (chronic kidney disease), stage IV N18.4 Esophageal varices without bleeding I85.00 Esophageal varices type: unspecified type Hypertension I10 Hypertension type: essential hypertension Liver cirrhosis K74.60 Hepatic cirrhosis type: unspecified hepatic cirrhosis Ascites presence: without ascites Type 2 diabetes mellitus E11.9; Z79.4 Diabetes mellitus intermediate insulin use: with extermination supervisor use Diabetes mellitus complication status: without complication GERD (gastroesophageal reflux disease) K21.9 Esophagitis presence: esophagitis presence not specified DVT prophylaxis Z29.9
--- NOTE | 2020-09-17 16:40 | Death Pronouncement Note ---
Date of Service September 17, 2020 Pronouncement Note Admission Date Admission Date: August 26, 2020 Date and Time of Date of : 09/17/20 Time of : 16:14 PCOD Preliminary cause of : Acute hepatic encephalopathy Contributing Factors (1) Acute hepatic encephalopathy: (2) CKD (chronic kidney disease), stage IV: (3) Esophageal varices without bleeding: (4) Hypertension: (5) Liver cirrhosis: (6) Type 2 diabetes mellitus: (7) GERD (gastroesophageal reflux disease): (8) DVT prophylaxis: Hospital Course Hospital Course: Compassionate extubation on 09/17 in consent with family and SCI Irais. - Notified by nurse that the patient had at 16:14. Confirmed with no pulse, no breath sounds, no pupil responses. Additional Data Confirmation of : no pulse, no respirations, no heart sounds and pupils fixed and dilated Family: contacted Attending physician: Al Antony MD Was code activated?: No Autopsy requested?: No estate tax examiner notified?: No Organ bank notified?: No Advance directives: No Coding Level of Care Code D/C Day Management >30 mins Diagnoses Acute hepatic encephalopathy K72.00 CKD (chronic kidney disease), stage IV N18.4 Esophageal varices without bleeding I85.00 Esophageal varices type: unspecified type Hypertension I10 Hypertension type: essential hypertension Liver cirrhosis K74.60 Hepatic cirrhosis type: unspecified hepatic cirrhosis Ascites presence: without ascites Type 2 diabetes mellitus E11.9; Z79.4 Diabetes mellitus halfway insulin use: with tank terminal gauger use Diabetes mellitus complication status: without complication GERD (gastroesophageal reflux disease) K21.9 Esophagitis presence: esophagitis presence not specified DVT prophylaxis Z29.9
== END 2020-09-17 18:00 | disposition expired | DRG 441 ==
LOC: ED 03:24 → SUATTDRO 06:38 → 1E 06:38 → 2W 08-28 15:13 → 1E 09-15 12:08